=== PATIENT | female | born 1955 | race Caucasian/White ===

== ENCOUNTER 2022-02-01 20:15 | Emergency (ER) | payer MEDICARE, BC, SELFPAY ==
[2022-02-01 20:27] VITALS: BP 123/77; PULSE 95; RESP 18; TEMP 36.2; O2SAT 94
--- OUTSIDE RECORDS SUMMARY | 2022-02-01 20:27 | XMS_ITS | Encounter Summary ---
:1955 Author Organization [facility] and Its Subsidiaries and Affiliates Address [address] [address] [place] [address] Care Team Providers Name Role Phone Unavailable Primary Care Provider Unavailable Encounter Details Date Type Department Care Team Description 09/23/2017 Hospital FM CONVERSION ENCOUN Brook Atkinson MD [address] [place] [phone] [place] [address] [phone] (Wo rk) Social History Tobacco Use Types Packs/Day Years Used Date Smoking Tobacco: Never Assessed Sex Assigned at Date Recorded Not on file documented as of this encounter Plan of Treatment Upcoming Encounters Date Type Specialty Care Team Description 04/22/2022 Office Visit Family Medicine Anabelle Yost MD [address] [facility] [address] [place] [address] (Wo rk) documented as of this encounter Procedures Procedure Name Priority Date/Time Associated Comments Diagnosis HISTORICAL CYTOLOGY Routine 09/23/2017 11:19 AM R esults for this CASE CDT procedure are i n the results section. documented in this encounter Results Historical Cytology Case (09/23/2017 11:19 AM CDT) Component Value Ref Test Analysis Performed At [facility] Range Method Time Signature Historical ST. Reporting [facility] Historical === Clinical Information: === ST. Reporting Specimen: Vaginal MACK Koo Date of LMP: 05/03/2000 [facility] Hormones: _ HOSPITAL : _ LABORATORY : _ Postmenopausal: _ Hysterectomy: _ Other clinical information: _ Historical === Statement of Adequacy: === ST. Reporting Satisfactory for Evaluation. D BRITTANIE ON [facility] Final === Diagnosis: === ST. Diagnosis NEGATIVE FOR INTRAEPITHELIAL LESION OR MALIGNANCY. [facility] Historical === Salvage Inspector Note: === ST. Reporting Imaging was successful. MICHAEL ERIC ON [facility] Historical === Disclaimer === ST. Reporting The Pap smear is a cancer sc reening test that has an overall 15-25% false-negative rate. ??For this reason, an annual Pap smear is recommended. ??Please discuss this with your patients. ?? Testing performed using the ThinPrep Imaging System. [facility] ON [facility] Adult Remedial Education Instructor: Marisol Juarez LABORATORY Verified by: Marisol Juarez (Electronically signed by) 09/28/17 2:11 PM Specimen (Source) Anatomical Collection Method Collection Time Re ceived Time Location / / Volume Laterality 09/23/2017 11:19 AM CDT Brook Meade MD PATHOLOGY/CYTOLOGY ORDERABLE S Performing Organization Address City/State/ZIP Code Phon e Number [facility], [place] [address] [facility] documented in this encounter Visit Diagnoses Not on filedocumented in this encounter
--- OUTSIDE RECORDS SUMMARY | 2022-02-01 20:27 | XMS_ITS | Encounter Summary ---
:1955 Author Organization [facility] and Its Subsidiaries and Affiliates Address [address] [address] [place] [address] Care Team Providers Name Role Phone Anabelle Yost MD Primary Care Provider Reason for Visit Reason Comments Other Encounter Details Date Type Department Care Team Description 10/28/2021 Telephone [facility] Anabelle Whitehead MD Other Associates [facility] [address] [place] [address] [place] [address] [phone] Social History Tobacco Use Types Packs/Day Years Used Date Smoking Tobacco: Never Smokeless Tobacco: Never Alcohol Use Standard Drinks/Week Comments Yes 1 (1 standard drink = 0.6 oz pure alcoho l) monthly or less Alcohol Habits Answer Date Recorded How often do you have a drink containing alcohol? Never 10/13/2021 How many drinks containing alcohol do you have on a Not aske d typical day when you are drinking? How often do you have six or more drinks on one Not asked occasion? Comment: monthly or less 10/20/2021 Sex Assigned at Date Recorded Not on file documented as of this encounter Miscellaneous Notes Telephone Encounter - Sarah Gomez LPN - 10/28/2021 10:06 AM CDT Called pt. Pt verified by name and . Pt also informed that referral was sent to wreath machine operator Kimberly. Pt verbalized understanding and thanked me for calling. Pt would like Latisse to be sent to pharmacy. documented in this encounter Plan of Treatment Upcoming Encounters Date Type Specialty Care Team Description 04/22/2022 Office Visit Family Medicine Anabelle Yost MD [address] [place] [address] [address] [place] [address] (Wo rk) documented as of this encounter Visit Diagnoses Not on filedocumented in this encounter Care Teams Marine Electrician Helper Relationship Specialty Start Date End Date Anabelle Yost MD PCP - General Family Medicine 10/03/[address] [place] [address] [address] [place], [id number] documented as of this encounter
--- OUTSIDE RECORDS SUMMARY | 2022-02-01 20:27 | XMS_ITS ---
:1955 Author Organization [facility] [place] Address [address] [place], [place] [id number] Care Team Providers Name Role Phone Anabelle Yost Unavailable Unavailable PROBLEMS Type Condition ICD9-CM Code DFG00-MB Code Onset Condition SNO MED Code Dates Status Problem Other injury of S29.8XXA 18 Miguel, Active 6597 8000 chest wall 2012 Problem Non-healing T81.89XA 18 Miguel, Active 11085596 3 surgical wound 2012 Problem History of Z87.01 18 Miguel, Active 836745059 recurrent 2012 pneumonia Problem Cellulitis, L03.90 18 Miguel, Active 61497654 4 unspecified 2012 Problem Anxiety F41.9 Active 13973641 Problem Arthralgia of hip, M25.551 Active 2 39240324 right Problem Gait instability R26.81 Active 223 00160 Problem Abscess L02.91 Active 59488122 Problem Vitamin D E55.9 Active 34479570 deficiency Problem Hypocalcemia E83.51 Active 8836542 Problem Type 2 diabetes E11.9 Active 4564 85566 mellitus without complication, without long-term current use of insulin Problem BMI 50.0-59.9, Z68.43 Active adult Problem History of breast Z85.3 Active 41 2118555 cancer Problem Body mass index Z68.42 Active 4085 59629 [BMI] 45.0-49.9, adult Problem Restless leg G25.81 Active 6001134 8 Problem Other T81.40XA 18 Miguel, Active 02144672 postoperative 2012 infection Problem Reactive F32.9 Active 15020569 depression Problem Insomnia, G47.00 Active 856954841 unspecified type Problem Essential I10 Active 39255616 hypertension Problem Body mass index Z68.43 Active 4085 65664 [BMI] 50.0-59.9, adult ALLERGIES Substance Reaction Event Type Date Status Vancomycin UNKNOWN 12/03/2011 Drug Allergy Apr, Active Nitrofurantoin RASH 07/22/2009 Drug Allergy Apr, Active Tape UNKNOWN 04/17/2011 Non Drug Allergy Apr, Activ e Compazine ANAPHYLAXIS 07/22/2009 Drug Allergy Apr, Activ e Macrobid 04/17/2011 Drug Allergy Apr, Active ENCOUNTERS Encounter Location Date Diagnosis [facility] [place] [facility] Apr, Body mass index [BMI] 100 [place] 45.0-49.9, adult Z68.42 ; 304194114 Type 2 diabetes mellitus without complica tion, without long-ter m current use of insulin E 11.9 and Restless leg G25 .81 [facility] [place] [facility] Mar, Restless leg G25.81 [address] [place] [id number] [facility] [place] [facility] Jan, Type 2 di abetes mellitus [address] [place] without complica tion, 214678304 without long-ter m current use of insulin E 11.9 [facility] [place] [facility] Oct, [address] [place] [id number] [facility] Oct, [address] [place], [place] [id number] [facility] [place] [address] [place] [address] [facility] Oct, Type 2 di abetes mellitus [address] [place] without complica tion, 9125[address]648 without long-ter m current use of insulin E 11.9 ; Body mass index [BMI] 50.0-59.9, adult Z68.43 ; Skin tags, multi ple acquired L91.8 a nd Wart B07.9 [facility] [place] [facility] August, Frequency of urination [address] [place] R35.0 ; BMI 50.0 -59.9, 835294498 adult Z68.43 ; D ysuria R30.0 and Dyspne a R06.00 [facility] [place] [address] [place] Aug, [address] [place] [id number] [facility] [place] [address] [place] Aug, Type 2 di abetes mellitus [address] [place] without complica tion, 146227294 without long-ter m current use of insulin E 11.9 ; Essential hypert ension I10 ; High risk medication use Z 79.899 ; Restless leg G25 .81 ; Body mass index [BMI] 50.0-59.9, adult Z68.43 ; Snoring R06.83 a nd Fatigue R53.83 [facility] [place] [address] [facility] Jun, Hospital discharge [address] [place] follow-up Z09 ; BMI 645305229 50.0-59.9, adult Z68.43 ; Dyspnea R06.00 a nd Type 2 diabetes mellitu s E11.9 [facility] [place] [address] [facility] Mar, [address] [place] [id number] [facility] [place] [address] [facility] Mar, [address] [place], [place] [id number] [facility] [place] [address] [place] Jan, [address] [place] [id number] [facility] [place] [address] [facility] Jan, Anxiety F 41.9 ; Type 2 [address] [place] diabetes mellitu s without 974113010 complication, wi thout long-term curren t use of insulin E11.9 ; Vitamin D deficiency E55.9 ; Gait instability R26. 81 ; Essential hypert ension I10 and Osteopor otic hip fracture, right, with delayed healing, subsequent encou nter M80.051G [facility] [place] [address] [place] Jan, [address] [place], [place] [id number] [facility] [place] [address] [place] Jan, Restless leg G25.81 [address] [place], [place] [id number] [facility] [place] [address] [place] August, [address] [place], [place] [id number] [facility] [place] [address] [place] August, [address] [place] [id number] [facility] [place] [address] [facility] Aug, Type 2 di abetes mellitus [address] [place] without complica tion, 315500681 without long-ter m current use of insulin E 11.9 ; Vitamin D defici ency E55.9 ; Reactive depression F32.9 ; Insomnia, unspec ified type G47.00 and Anxiety F41.9 [facility] [place] [address] [place] Aug, Type 2 di abetes mellitus [address] [place] without complica tion, [address] without long-ter m current use of insulin E 11.9 [facility] [place] [address] [place] Apr, [address] [place], [place] [id number] [facility] [place] [address] [place] Jan, 100 [place], [place] [id number] [facility] [place] [address] [place] Jan, Type 2 di abetes mellitus [address] [place] without complica [place]ion, [address] without long-ter m current use of insulin E 11.9 ; Vitamin D defici ency E55.9 ; Hypocalc emia E83.51 ; Dysuria R30.0 ; Candidal intertr igo B37.2 and Acute cystit is without hematuri a N30.00 [facility] [place] [address] [place] Jan, [address] [place], [place] [id number] [facility] [place] [address] [place] Oct, Restless leg G25.81 ; [address] [place] Hypocalcemia E83 .51 ; [id number] Reactive depress ion F32.9 ; Diarrhea, unsp ecified type R19.7 ; Ins omnia, unspecified type G47.00 and Other long t erm (current) drug t herapy Z79.899 [facility] [place] [address] [facility] Aug, [address] [place], [place] [id number] [facility] [place] [address] [place] Aug, [address] [place], [place] [id number] [facility] [place] [address] [place] Aug, Fever, un specified fever [address] [place] cause R50.9 ; Di zziness [id number] R42 ; Orthostati c hypotension I95. 1 ; Hypocalcemia E83 .51 ; Elevated glucose R73.09 ; Type 2 diabetes mellitus without complica tion, without long-ter m current use of insulin E 11.9 and Vitamin D defici ency E55.9 [facility] [place] [address] [facility] Apr, [address] [place], [place] [id number] [facility] [place] [address] [facility] Apr, [address] [place], [place] [id number] [facility] [place] [address] [facility] Mar, Restless leg G25.81 [address] [place], [place] [id number] [facility] [place] [address] [facility] Mar, Restless leg G25.81 [address] [place], [place] [id number] [facility] [place] [address] [facility] Oct, Right hip pain 719.45 and [address] [place] Gait instability R26.81 [id number] [facility] [place] [address] [facility] Apr, Flu-like symptoms R68.89 [address] [place] ; Wheezing R06.2 and [id number] Bronchitis J40 [facility] [place] [address] [facility] Oct, [address] [place], [place] [id number] [facility] [place] [address] [facility] Oct, Abscess L 02.91 and [address] [place] Anxiety F41.9 [id number] [facility] [place] [address] [facility] Oct, Intertrig o 695.89 [address] [place], [place] [id number] [facility] [place] [address] [facility] Jun, Cough 786 .2 and [address] [place] Bronchitis 490 [id number] [facility] [place] [address] [facility] Jun, [address] [place] [id number] [address] [employer] [place], [place] [id number] [address] [employer] [place], [place] [id number] [facility] [place] [address] [facility] May, Acute bro nchitis 466.0 [address] [place] and Sinusitis 47 3.9 [id number] [facility] [place] [address] [facility] May, [address] [place], [place] [id number] [facility] [place] [address] [place] [address] Dec, Right hip p ain [address] [place] [id number] [facility] [place] [address] [place] Oct, Acute bro nchitis 466.0 [address] [place] and Grief reacti on 309.[id number] [facility] Oct, GENIE [place] [id number] [address] Jul, GENIE [place] [id number] [address] Jul, GENIE Marie [place] [id number] DO NOT USE FAMILY [address] [place] Jul, [employer] JAKE, [id number] DO NOT USE FAMILY [address] [place] Jul, [employer], [id number] [address] Jul, GENIE Marie [place] [id number] [address] Dec, GENIE Marie [place] [id number] [address] [facility] Dec, GENIE Marie [place] [id number] [address] [facility] Oct, GENIE Marie [place] [id number] [address] [facility] Jul, GENIE Marie [place] [id number] [address] [facility] May, GENIE [place] [id number] [address] May, GENIE [place] [id number] [address] [facility] Apr, [place] [id number] [address] [facility] Mar, [place] [id number] [address] [facility] Mar, [place] [id number] [address] [facility] Jan, [place] [id number] [address] [facility] Aug, [place] [id number] [address] Jun, [place] [id number] [address] May, GENIE [place] [id number] [address] Oct, [place] [id number] [address] 14 Oct, 2009 Cynthia [facility] [place] [id number] [address] Aug, GENIE Marie [place] [id number] [address] Aug, GENIE Marie [place] [id number] [address] Jul, GENIE Marie [place] [id number] [address] Apr, GENIE Marie [place] [id number] [address] Mar, GENIE Marie [place] [id number] [address] May, GENIE Marie [place] [id number] IMMUNIZATIONS Vaccine Route Administration Date Status Rocephin 1 gram 0 November 02, 2013 Administered Covid Vaccine (TwitChat) (Dose 2) Unknown Jun 06, 2020 Administered Covid Vaccine (TwitChat) (Dose 1) Unknown May 16, 2020 Administered [id number] FLUZONE PFS/QUADRIVALENT 3YR + - FLU Unknown Jan 15, 2018 Administered VIRUS VACCINE, QUADRIVALENT (IIV4), SPLIT VIRUS, PRESERVATIVE FREE Tdap (Adacel) >7y Unknown July 12, 2013 Administered Hepatitis B Unknown May 03, 2001 Administered SOCIAL HISTORY Qualifiers Date Never Smoker REASON FOR REFERRAL FUNCTIONAL STATUS PLAN OF CARE Activity Details Follow Up 3 Months, prn Reason: Pending Test In-House Urine Drug Screen Pending Test In-House CBC With Diff Pending Test In-House Flu Test Type B Pending Test In-House Flu Test Type A Pending Test In-House CBC With Diff Pending Test In-House Flu Test Type B Pending Test In-House Flu Test Type A VITAL SIGNS MEDICATIONS Medication Instructions Dosage Frequency Start End Duration Statu s Date Date [place] 10-325 MG Orally every 6 1 tablet as 6h Active hrs needed Effexor XR 150 MG Orally Once a 1 capsule 24h 90 day s Active day with food Multi Complete Active Coreg 25 MG Orally Twice a 1 tablet 12h 30 day(s) Ac tive day with food Vit Active C-Cholecalciferol- Eva Hip 500-1000-20 MG-UNIT-MG Aspirin 81 MG Orally Once a 1 tablet 24h Act joseline day Diclofenac Sodium TAKE 1 30 Active 75 MG TABLET BY MOUTH TWICE DAILY WITH FOOD OR MILK Culturelle as directed Active Probiotics - Requip 2 MG Orally BID for 1 tablet 90 days Acti ve restless legs Welchol 625 MG Orally once a 2 tablets 24h Oct, A ctive day 2018 Cyclobenzaprine Orally Three 1 tablet Ac tive HCl 10 MG times a day prn. Breo Ellipta Inhalation Once 1 puff 24h Act joseline 100-25 MCG/INH a day Micardis HCT 80-25 Orally Once a 1 tablet Active MG day for blood pressure [place] 5-325 MG Orally every 6 1 tablet as 6h Active hrs needed Klor-Con M20 20 Orally once a 1 tablet 24h A ctive MEQ day metFORMIN HCl 500 Orally Once a 1 tablet 24h Aug, days Active mg day with a meal 2018 Lasix 40 MG Orally Once a 1 tablet Activ e day prn. Ozempic (1 Subcutaneous as directed Oct, 30 days Acti ve MG/DOSE) 2 once a week 2020 MG/1.5ML Calcium + D3 Orally twice a 1 tablet 12h Act joseline 600-200 MG-UNIT day PROCEDURES Procedure Date Ordered Result Body Site LIPID PANEL Feb 27, 2020 ROUTINE VENIPUNCTURE Feb 15, 2019 Rocephin 500mg Dec 20, 2012 DESTROY BENIGNPREMLG LESION October 07, 2020 DEPO-MEDROL, 40MG Dec 20, 2012 CORTASTAT,DALALONE,[id number] Dec 20, 2012 HGB A1C August 28, 2020 EXCISION - BREAST LESION Mar 19, 2011 [facility] MED/CURRENT MED MERGE Jun 05, 2020 REMOVE SKIN TAGS ADD-ON October 07, 2020 INSERT TUNNELED CV CATH Apr 23, 2011 DRUG TEST PRSMV DIR OPT OBS October 27, 2018 ROUTINE VENIPUNCTURE August 28, 2020 TOTAL HYSTERECTOMY July 22, 2013 REMOVE TISSUE CLIENT TECHNOLOGIES ANALYST(S) May 27, 2011 REMOVAL OF SKIN TAGS October 07, 2020 CHEST X-RAY 2 VIEWS FRONTAL AND LATERAL Apr 10, 2016 REMOVAL OF GALLBLADDER July 22, 2013 CHEST X-RAY 2 VIEWS FRONTAL AND LATERAL Dec 26, 2012 URINALYSIS - AUTO - WO SCOPE August 24, 2018 LEG/ANKLE SURGERY PROCEDURE July 22, 2013 MASTECTOMY, SIMPLE, COMPLETE Mar 18, 2011 PHONE E/M BY PHYS 11-20 MIN Apr 17, 2021 ASPIRATE/INJ GANGLION CYST July 22, 2013 BREAST RECONSTRUCTION Mar 18, 2011 URINALYSIS - AUTO - WO SCOPE September 04, 2020 ROUTINE VENIPUNCTURE Feb 27, 2020 IH Flu Test Type A Jun 19, 2014 DEBRIDE SKINTISSUE July 21, 2011 LIPID PANEL August 28, 2020 DX BRONCHOSCOPE/LAVAGE July 22, 2013 PERIODIC ORAL EXAMINATION July 22, 2013 X-RAY EXAM CHEST 2 VIEWS August 24, 2018 X-RAY EXAM OF HIP 1 VIEW Dec 21, 2013 IH Flu Test Type A Apr 10, 2016 HGB A1C Feb 15, 2019 HGB A1C Feb 27, 2020 COMPLETE CBC WAUTO DIFF WBC Apr 10, 2016 ROCEPHIN, PER 250 MG November 02, 2013 IH Flu Test Type B Apr 10, 2016 IH Flu Test Type A August 24, 2018 IH Flu Test Type B August 24, 2018 COMPLETE CBC WAUTO DIFF WBC Feb 27, 2020 PHONE E/M BY PHYS 11-20 MIN August 17, 2019 URINALYSIS - AUTO - WO SCOPE Feb 15, 2019 COMPLETE CBC WAUTO DIFF WBC August 24, 2018 RESULTS Name Result Date Reference Range Outside A1C 2021-01-28 Result 6.7 In-House Urinalysis WO Scope 2020-09-04 Glucose neg Bili Small Ketones Trace Sp Grav >=1.030 1.015 - 1.025 Blood neg pH 6.0 5.0 - 6.5 Protein 100 mg/dl Uro 0.2 E.U./dl Nitrite Positive Leuk neg Clarity cloudy Color yellow Urine Culture 2020-09-04 Mammogram Pap Smear Cervial Cancer Screen Note: Clinical history: DIAGNOSIS: Specimen adequacy: Additional comment: Recommendation: Performed by: Electronically signed by: Test ordered: Maturation index: Amended report: Addendum: QC reviewed by: Cytology history: Special procedure: QA comment: Diagnosis provided by: Source: Pathologist provided ICD9: Clinician provided ICD9: Interpretation Conv. CPT Code Automation In-House Hemoglobin A1c 2020-08-28 Hemoglobin A1c 9.1 Basic Metabolic Panel (BMP) 2020-08-28 Glu Lvl 233 82-115 Chloride Lvl 97 98-107 K Lvl 4.4 3.5-5.1 Na Lvl 142 135-145 CO2 Lvl 29 22-30 Creatinine Lvl 0.9 0.7-1.5 BUN Lvl 27 10-20 Calcium Lvl 9.8 8.4-10.2 BUN/Creat 30.0 7.0-25.0 AGAP 20 10-20 eGFR AA >60 >=60 eGFR Non-AA >60 >=60 In-House Lipid Panel 2020-08-28 TC 196 111 - 199 HDL 62 40 - 60 TRG 249 40 - 160 LDL 84 70 - 100 Non-HDL 134 TC/HDL 3.2 Complete Lipid In-House CBC With Diff WBC 6.1 4.5 - 10.5 RBC 4.33 4.2 - 6.1 Hemoglobin 12.4 12.1 - 17.2 Hematocrit 37.7 36 - 50 MCV 87.1 77 - 99 MCH 28.6 27 - 31.2 MCHC 32.9 31 - 37 Platelets 214 150 - 400 Lymphs 17.0 20.0 - 45.0 % Monocytes 8.0 1.0 - 8.0 % Neutrophils 75.0 45.0 - 75.0 % Lymphs (Absolute) 1.0 1.0 - 4.0 Monocytes(Absolute) 0.5 0.05 - 0.60 Neutrophils (Absolute) 4.6 2.5 - 7.5 RDW SD 53.7 RDW CV 16.5 MPV 9.4 9 - 13 25-OH Vitamin D Total 2020-02-27 25-Hydroxy D Lvl 34.7 30.0-50.0 Hepatic Function Panel 2020-02-27 Protein Total 6.8 6.6-8.5 Albumin Lvl 3.8 3.5-5.1 Bili Total 0.4 0.2-1.3 AST (SGOT) 33 5-36 Alk Phos 103 38-126 ALT (SGPT) 47 0-72 Bili Direct 0.2 0.0-1.1 Globulin Lvl 3.0 2.4-4.2 A/G Ratio 1.3 0.8-1.8 In-House Hemoglobin A1c Hemoglobin A1c 7.4 Basic Metabolic Panel (BMP) 2020-02-27 Glu Lvl 147 82-115 Chloride Lvl 99 98-107 K Lvl 4.7 3.5-5.1 Na Lvl 140 135-145 CO2 Lvl 31 22-30 Creatinine Lvl 0.9 0.7-1.5 BUN Lvl 17 10-20 Calcium Lvl 9.3 8.4-10.2 BUN/Creat 18.9 7.0-25.0 AGAP 15 10-20 eGFR AA >60 >=60 eGFR Non-AA >60 >=60 In-House Lipid Panel TC 183 111 - 199 HDL 53 40 - 60 TRG 198 40 - 160 LDL 90 70 - 100 Non-HDL 129 TC/HDL 3.4 Complete Lipid Urine Culture 2019-02-15 RM Urinalysis, Routine IN-HOUSE 2019-02-15 Glucose Negative Bilirubin Negative Ketone Negative Specific Clay 1.020 Blood Negative pH 6.0 Protein Negative Urobilinogen 0.2 Nitrite Positive Leukocytes Negative Color Not Entered Clarity Not Entered 25-OH Vitamin D Total 2019-02-15 25-Hydroxy D Lvl 38.9 30.0-96.0 Comprehensive Metabolic Panel (CMP) 2019-02-15 Glu Lvl 132 65-110 Protein Total 7.3 6.6-8.5 Albumin Lvl 4.4 3.5-5.1 Chloride Lvl 102 98-107 K Lvl 5.2 3.5-5.1 Na Lvl 140 135-145 CO2 Lvl 24 22-30 Creatinine Lvl 0.8 0.7-1.5 BUN Lvl 26 7-20 Calcium Lvl 8.9 8.4-10.2 Bili Total 0.7 0.2-1.3 AST (SGOT) 48 14-36 Alk Phos 61 38-126 ALT (SGPT) 34 <=52 BUN/Creat 32.5 7.0-25.0 Globulin Lvl 2.9 2.4-4.2 A/G Ratio 1.5 0.8-1.8 AGAP 19 10-20 eGFR AA >60 >=60 eGFR Non-AA >60 >=60 RM HEMOGLOBIN A1c IN-HOUSE 2019-02-15 HbA1c 6.9 4-6 Hemoglobin A1c (Hgb A1c) 2019-02-15 Thyroid Stimulating Hormone (TSH) 2018-10-27 TSH 2.280 0.465-4.680 Parathyroid Hormone Intact (PTH Intact) PTH Intact 41.7 10.8-84.5 Magnesium Level (Mg) 2018-10-27 Magnesium Lvl 1.6 1.6-2.3 Comprehensive Metabolic Panel (CMP) 2018-10-27 Glu Lvl 124 65-110 Protein Total 6.8 6.6-8.5 Albumin Lvl 4.3 3.5-5.1 Chloride Lvl 101 98-107 K Lvl 4.3 3.5-5.1 Na Lvl 138 135-145 CO2 Lvl 28 22-30 Creatinine Lvl 0.8 0.7-1.5 BUN Lvl 23 7-20 Calcium Lvl 9.5 8.4-10.2 Bili Total 0.4 0.2-1.3 AST (SGOT) 26 14-36 Alk Phos 78 38-126 ALT (SGPT) 27 <=52 BUN/Creat 28.8 7.0-25.0 Globulin Lvl 2.5 2.4-4.2 A/G Ratio 1.7 0.8-1.8 AGAP 13 10-20 eGFR AA >60 >=60 eGFR Non-AA >60 >=60 RM Urinalysis, Routine IN-HOUSE 2018-08-24 Glucose Negative Bilirubin Negative Ketone Negative Specific Clay 1.010 Blood Negative pH 6.5 Protein Negative Urobilinogen 0.2 Nitrite Negative Leukocytes Trace Color Not Entered Clarity Not Entered Urine Culture 2018-08-24 Comprehensive Metabolic Panel (CMP) 2018-08-24 Glu Lvl 161 65-110 Protein Total 6.4 6.6-8.5 Albumin Lvl 3.7 3.5-5.1 Chloride Lvl 95 98-107 K Lvl 4.1 3.5-5.1 Na Lvl 134 135-145 CO2 Lvl 27 22-30 Creatinine Lvl 0.7 0.7-1.5 BUN Lvl 15 7-20 Calcium Lvl 8.2 8.4-10.2 Bili Total 0.5 0.2-1.3 AST (SGOT) 25 14-36 Alk Phos 85 38-126 ALT (SGPT) 38 <=52 BUN/Creat 21.4 7.0-25.0 Globulin Lvl 2.7 2.4-4.2 A/G Ratio 1.4 0.8-1.8 AGAP 16 10-20 eGFR AA >60 >=60 eGFR Non-AA >60 >=60 IH CHEST - 2 VIEWS [id number] 2018-08-25 25-OH Vitamin D Total 2018-08-24 25-Hydroxy D Lvl 23.9 30.0-96.0 Hemoglobin A1c (Hgb A1c) 2018-08-24 Hgb A1c 7.2 4.0-6.0 MPG Calc 179 IH CHEST - 2 VIEWS [id number] 2016-04-10 Wound Culture 2015-10-18 BLUNGER HIP 2 VIEWS 2013-12-21 HM Colonoscopy Pap Smear, 1 Slide . Note: Clinical history: DIAGNOSIS: Specimen adequacy: Additional comment: Recommendation: Performed by: Electronically signed by: Test ordered: Maturation index: Amended report: Addendum: QC reviewed by: Cytology history: Special procedure: QA comment: Diagnosis provided by: Source: Pathologist provided ICD9: Clinician provided ICD9: Interpretation Conv. CPT Code Automation HM Mammogram Glucose 2009-08-23 Result 124 >70 - <130 Glucose Office Urinalysis 2009-08-23 Sp Grav 1.025 >1.015 - <1.025 Glu neg Bili neg Ketone neg Blood neg pH 6.0 >5.0 - <6.5 Protein neg Nitrite neg Leuk neg Uro 0.2 E.U./dl Color lt yellow Clarity clear CBC 2009-08-23 WBC 6.7 k/uL 4.6 - 10.2 RBC 4.84 M/uL 4.04 - 5.40 Hgb 14.3 gm/dL 12.0 - 16.0 Hct 43.7 % 37.0 - 47.0 MCV 90.3 fL 77.0 - 99.0 MCH 29.5 pg 27.0 - 31.2 MCHC 32.7 gm/dL 31.0 - 37.0 Platelet 228 k/uL 130 - 400 MPV 11.6 fL 9.0 - 13.0 RDW 13.6 % 11.6 - 15.7 NRBC Auto RDW-SD Auto Diff 2009-08-23 Seg Auto 70 % 37 - 80 Lymph Auto 20 % 10 - 50 [place] Auto 8 % 0 - 12 Eos Auto 1 % 0 - 7 Baso Auto 0 % 0 - 3 Imm Gran Auto Lipid 2009-08-23 Trig 178 mg/dL 35 - 160 Chol 193 mg/dL 50 - 200 HDL 53 mg/dL 35 - 85 VLDL Calc 36 mg/dL LDL Direct 114 mg/dL <=100 Office Urinalysis 2009-07-22 Sp Grav 1.005 >1.015 - <1.025 Glu neg Bili neg Ketone neg Blood 2+ pH 6.5 >5.0 - <6.5 Protein trace Nitrite neg Leuk 3+ Uro 0.2 E.U./dl Color yellow Clarity cloudy REASON FOR VISIT Medicare Annual Wellness Exam, medication refills(dr yost does not do wellness exams via telephone), TV visit: [phone] , pt c/o diarrhea x 1 day, feeling weaker, *CC Rx Refill, *CC Med Refill, PFIZER BOOSTER, *CC Nurse Call Back, [place] [facility], 6 WEEK FOLLOW UP, MOLE REMOVAL/6 WEEK, POSS UTI, req for PT, FASTING 6 MONTH OFFICE VISIT, 2 WEEK HOSPITAL FOLLOW UP, DISCUSS OSTEOPOROSIS MEDS, PLS CALL,PLS CALL , APPT/RX, 6 MONTH FOLLOW UP, Med Refill, Med refill, fasting labs, CALL BACK NEEDED, call back, FASTING 6 MONTH OV , REFILL , NEW RX, FOLLOW UP LABS, APPT REQUEST, BLOOD WORK , Other, FEVER, REFILL, REFILL, RESTLESS LEG, RIGHT HIP PAIN, COUGH/CONGESTION/ACHES ALL OVER, BUMP/PAIN LFT ELBOW, c/o kendra groin area rash, itching., c/o cough a lot, yellow drainage, fever ? sick since Sat. , Urgent visit request, c/o nasal congestion, cough, yellow drainage, fever? sick since Fri. , Urgent visit request, FELL ON HIP A COUPLE OF DAYS AGO, c/o cough a lot, yellow drainage, sore throat, chest burning, fever? since last Fri. , EMR-Reginald, EMR-Reginald, EMR-Reginald, EMR-Reginald, EMR-Reginald, EMR-Reginald, EMR-Reginald, EMR-Reg[facility]d, EMR-[facility]d, EMR-[facility]d, EMR-Reg[facility]d, EMR-Reg[facility]d, EMR-Reg[facility]d, EMR-Reg[facility]d, EMR-Reg[facility]d, EMR-[facility]d, EMR-[facility]d, EMR-[facility]d, EMR-[facility]d, EMR-[facility], EMR-[facility], EMR-[facility], EMR-[facility]d, EMR-Reginald, [facility]MR[facility] Insurance Providers [facility] Member Patient Patient Patient Patient Patient Subscriber Subscriber Subscriber Group Insurance Plan Plan Plan Plan ID Relationship Address Phone Name Date of ID Name Date of No Type Insurance Insurance Insurance Coverage to Subscriber Address Phone Name Dates [place] [phone] [place] 1954 1225 [id number] [place] [address] MEDICARE [phone] MEDICARE self [place]OG[place] [id number] [place] [address] MEDICARE [phone] MEDICARE self BOG[place] [id number] [place] [address]
--- OUTSIDE RECORDS SUMMARY | 2022-02-01 20:27 | XMS_ITS | Encounter Summary ---
:1955 Author Organization [facility] and Its Subsidiaries and Affiliates Address [address] [address] [place] [address] Care Team Providers Name Role Phone Anabelle Yost MD Primary Care Provider Reason for Visit Reason Comments Hospital Follow Up Dislocation of R hip -[facility] Encounter Details Date Type Department Care Team Description 12/31/[address] [facility] Anabelle Yost, Hosp ital discharge follow-up (Primary Dx); [facility] Type 2 diabetes mellitus without complic ation, without long-term current use of insulin (HCC); [place] [address] [place] Chronic pain syndrome [address] [facility] [address] [place] [phone] Social History Tobacco Use Types Packs/Day Years Used Date Smoking Tobacco: Never Smokeless Tobacco: Never Tobacco Cessation: Counseling Given: Not Answered Alcohol Use Standard Drinks/Week Comments Yes 1 [...] on file documented as of this encounter Last Filed Vital Signs Vital Sign Reading Time Taken Comments Blood Pressure 118/75 12/31/2021 1:55 PM CDT Pulse 79 12/31/2021 1:55 PM CDT Temperature - - Respiratory Rate 18 12/31/2021 1:55 PM CDT Oxygen Saturation 96% 12/31/2021 1:55 PM CDT Inhaled Oxygen Concentration - - Weight 144.7 kg (319 lb) 12/31/2021 1:55 PM CDT Height 172.7 cm (5' 8) 12/31/2021 1:55 PM CDT Body Mass Index 48.5 12/31/2021 1:55 PM CDT documented in this encounter Progress Notes Amee Obando RT - 12/31/2021 2:15 PM CDT V Anabelle Yost MD - 12/31/2021 2:15 PM CDTSummary: Hospital follow-up Subjective Sarah Doran is a 66 y.o. presenting for Chief Complaint Patient presents with Hospital Follow Up Dislocation of R hip -[facility] HPI This 66-year-old CF presents to clinic today in follow-up of hospitalization [facility] for dislocated right hip prosthesis. She underwent surgery on 11/20/2021 and [facility] She was placed on gabapentin 400 mg 3 times daily for pain control by Dr. Ronak Wilhelm and needs a refill. She is concerned about being able to access Ozempic for type 2 diabetes due to patient wide shortages. Current Outpatient Medications Medication Sig Dispense Refill albuterol 2.5 mg /3 mL (0.083 %) nebulizer solution Take 2.5 mg by nebulization 4 (four) times daily as needed for Wheezing. 75 mL 12 ascorbic acid, vitamin C, (VITAMIN C) 1000 MG tablet Take 1,000 mg by mouth daily. aspirin 81 mg EC tablet Take 81 mg by mouth daily. calcium carbonate-vit D3-min (Calcium 600 + Minerals) 600 mg calcium- 200 unit Tablet Take by mouth2 (two) times daily. carvediloL (COREG) 25 mg tablet Take 25 mg by mouth 2 (two) times daily with meals. colesevelam (WELCHOL) 625 mg tablet Take 625 mg by mouth. Take 2 tablets by mouth once a day diclofenac (VOLTAREN) 75 mg EC tablet Take 75 mg by mouth in the morning and 75 mg before bedtime. DULoxetine (CYMBALTA) 60 mg capsule Take 60 mg by mouth daily. furosemide (LASIX) 40 mg tablet Take 40 mg by mouth daily. gabapentin (NEURONTIN) 400 mg capsule Take 1 capsule by mouth in the morning and 1 capsule at noon and 1 capsule before bedtime. 270 capsule 1 HYDROcodone-acetaminophen (NORCO) 10-325 mg per tablet Take 1 tablet by mouth every 6 (six) hours as needed for Pain. HYDROcodone-acetaminophen (NORCO) 5-325 mg per tablet Take 1 tablet by mouth every 6 (six) hours asneeded for Pain. metFORMIN (GLUCOPHAGE) 500 mg tablet Take 1 tablet by mouth daily. 90 tablet 1 mirtazapine (REMERON) 30 MG tablet Take 30 mg by mouth at bedtime. multivitamin with folic acid (THERAGRAN) 400 mcg Tablet Take 1 tablet by mouth daily. potassium chloride (KLOR-CON M20) 20 mEq tablet Take 20 mEq by mouth daily. rOPINIRole (REQUIP) 2 mg tablet Take 1 tablet by mouth 2 (two) times daily. 180 tablet 1 semaglutide (Ozempic) 1 mg/dose (2 mg/1.5 mL) Pen Injector Inject 1 mg into the skin Take once weekly. 4 mL 5 telmisartan-hydrochlorothiazide (MICARDIS HCT) 80-25 mg per tablet Take 1 tablet by mouth daily. temazepam (RESTORIL) 15 mg capsule Take 15 mg by mouth nightly as needed for Sleep. venlafaxine XR (EFFEXOR-XR) 150 mg 24 hr capsule Take 150 mg by mouth daily. No current facility-administered medications for this visit. Past Medical History: Diagnosis Date Abscess Anxiety Arthralgia of hip, right Breast cancer (HCC) Cellulitis Chronic cough Gait instability Pneumonia Past Surgical History: Procedure Laterality Date ANKLE SURGERY Right 08/2014 BREAST SURGERY CARPAL TUNNEL RELEASE cataract surgery Left 04/2016 CHOLECYSTECTOMY COSMETIC SURGERY facial dislocation of right hip Right 11/20/2021 FIRST RIB REMOVAL HYSTERECTOMY partial LIPOSUCTION Bilateral lymph edema MASTECTOMY Bilateral right total hip replacement Right dr. sanon 06/14/2019 Allergies Allergen Reactions Nitrofurantoin Rash Nitrofurantoin Monohyd/M-Cryst Rash Prochlorperazine Anaphylaxis and Shortness Of Breath Vancomycin Other (See Comments) Other reaction(s): Unknown Unsure of drug or dose, but caused total renal failure Other reaction(s): Acute renal failure Adhesive Rash Other reaction(s): Erythema tears skin- may uses paper tape for short time Can tolerate paper tape Family History Problem Relation Age of Onset Breast cancer Mother Diabetes Mother Cancer Father Hypertension Father Social History Tobacco Use Smoking Status Never Smokeless Tobacco Never Social History Substance and Sexual Activity Alcohol Use Yes Alcohol/week: 1.0 standard drink Types: 1 Standard drinks or equivalent per week Comment: monthly or less Review of Systems All other systems reviewed and are negative. Vitals: 12/31/21 1355 BP: 118/75 Pulse: 79 Resp: 18 SpO2: 96% Weight: (!) 144.7 kg (319 lb) Height: 172.7 cm (68) BP Readings from Last 3 Encounters: 12/31/21 118/75 11/09/21 (!) 150/89 10/20/21 (!) 144/69 Wt Readings from Last 3 Encounters: 12/31/21 (!) 144.7 kg (319 lb) 11/09/21 (!) 144.7 kg (319 lb) 10/20/21 (!) 141.5 kg (312 lb) Body mass index is 48.5 kg/m??. Physical Exam Vitals and nursing note reviewed. Constitutional: General: She is not in acute distress. Appearance: Normal appearance. She is obese. HENT: Head: Normocephalic and atraumatic. Skin: General: Skin is warm and dry. Neurological: General: No focal deficit present. Mental Status: She is alert and oriented to person, place, and time. Psychiatric: Mood and Affect: Mood normal. Behavior: Behavior normal. Encounter Diagnoses Name Primary? Hospital discharge follow-up Yes Type 2 diabetes mellitus without complication, without long-term current use of insulin (HCC) Chronic pain syndrome Plan Medications Placed This Encounter Medications gabapentin (NEURONTIN) 400 mg capsule Sig: Take 1 capsule by mouth in the morning and 1 capsule at noon and 1 capsule before bedtime. Dispense: 270 capsule Refill: 1 Hospital records were reviewed. Patient will continue with gabapentin 400 mg 3 times daily for pain control. Continue with Ozempic as prescribed. We discussed possibly switching to Mounjaro she will check her insurance to see if it is covered No follow-ups on file. Anabelle Yost MD documented in this encounter Plan of Treatment Upcoming Encounters Date Type Specialty Care Team Description 04/22/2022 Office Visit Family Medicine Anabelle Yost MD [address] [place] [address] [place] [address] (Wo rk) documented as of this encounter Visit Diagnoses Diagnosis Hospital discharge follow-up - Primary Other follow-up examination Type 2 diabetes mellitus without complic ation, without long-term current use of insulin (HCC) Chronic pain syndrome documented in this encounter Care Teams Cloud Software Engineer Relationship Specialty Start Date End Date Anabelle Yost MD PCP - General Family Medicine 10/03/[address] [place] [address] [place] [id number] documented as of this encounter
--- OUTSIDE RECORDS SUMMARY | 2022-02-01 20:27 | XMS_ITS ---
:1955 Author Organization [facility] [place] Address [address] [facility] [place] [address] Care Team Providers Name Role Phone SONIA Wang Unavailable Unavailable PROBLEMS Type Condition ICD9-CM Code FFR52-GQ Code Onset Condition SNO MED Code Dates Status Problem Depression F32.9 Active Problem Breast cancer C50.919 Active 689785 009 Problem Major depressive F32.9 Active 369 31797 disorder, single episode, unspecified Problem Essential I10 Active 50276307 (primary) hypertension ALLERGIES Substance Reaction Event Type Date Status Macrobid Unknown Drug Allergy Jan, Active Compazine Unknown Drug Allergy Jan, Active Vancomycin HCl Unknown Drug Allergy Jan, Active Adhesive Tape Unknown Drug Allergy Jan, Active ENCOUNTERS Encounter Location Date Diagnosis [facility] [place] [address] May, Exposure to C OVID-19 [place] [address] virus Z20 .828 [facility] [address] Jan, Exposure to COVID-[address] [place] [address] virus Z20 .828 [place] [address] Jul, [place], [place] [id number] [place] [address] [address], Jul, Acu [place] upper respiratory [place] [id number] infection, unspe cified J06.9 ; Pneumoni a J18.9 and Wheezing R06 .2 [place] [address] Jul, Sprain and strain of [place], [place] [id number] unspecifie d site of wrist 842.00 IMMUNIZATIONS Vaccine Route Administration Date Status Decadron 4 MG IM Intramuscular July 21, 2015 Administered Rocephin 1 gm IM Intramuscular July 21, 2015 Administered SOCIAL HISTORY Qualifiers Date Never Smoker REASON FOR REFERRAL FUNCTIONAL STATUS PLAN OF CARE Activity Details Future/Pending Procedure NEBULIZER Future/Pending Procedure NEBULIZER SUPPLIES Future/Pending Procedure DUONEB ALBUTEROL UP TO 2.5 M G AND IPRATROPIUM BROMIDE UP TO 0.5 MG (J7620) VITAL SIGNS Height 68.5 in 2020-02-13 Height 68.5 in 2015-07-21 Weight 300 lbs 2020-02-13 Weight 308.8 lbs 2015-07-21 BMI 44.95 kg/m2 2020-02-13 BMI 46.26 kg/m2 2015-07-21 Temperature 98.1 degrees Fahrenheit 2020-02-13 Temperature 98.5 degrees Fahrenheit 2015-07-21 Oximetry 96 % 2020-02-13 Oximetry 98 % 2015-07-21 Blood pressure systolic 100 mm Hg 2015-07-21 Blood pressure diastolic 56 mm Hg 2015-07-21 MEDICATIONS Medication Instructions Dosage Frequency Start End Duration Statu s Date Date metFORMIN HCl 500 90 Active MG Diclofenac Sodium 90 Active 75 MG Micardis HCT 80-25 Orally Once a 1 tablet 24h Active MG day [place] 5-325 MG Orally every 6 1 tablet as 6h Active hrs needed Cyclobenzaprine 15 Active HCl 10 MG Colesevelam HCl Oral Twice a 12h Act joseline 625 MG day Venlafaxine HCl ER 90 Activ e 150 MG Restoril 30 MG Orally Once a 1 capsule 24h A ctive day at bedtime as needed Bystolic 5 MG 90 Active Aspirin 81 MG Orally Once a 1 tablet 24h Act joseline day Requip 2 MG Orally Once a 1 tablet 1 24h 30 day(s) A ctive day to 3 hours before bedtime Hycodan 5-1.5 Orally every 6 5 ml as 6h Act joseline MG/5ML hrs needed Bentyl 10 MG Orally Three 2 capsules 8h 30 day(s) A ctive times a day PROCEDURES Procedure Date Ordered Result Body Site INFLUENZA INF (A) July 21, 2015 RADEX WRST COMPL MIN 3 VIEWS July 29, 2013 THERAPEUTIC PROPHYLACTICDX IN July 21, 2015 RADEX CH 2 VIEWS FRNT&LAT July 21, 2015 ALBUTEROL NON-COMPOUNDED July 21, 2015 Rocephin 1 gm July 21, 2015 WRIST COCK-UP NON-MOLDED July 29, 2013 Decadron 4 MG July 21, 2015 EVENING / WKEND / HOLIDAY SVCS July 29, 2013 INFLUENZA INF (B) July 21, 2015 BLD# COMPL AUTO HHRWP&AUTO DIF July 21, 2015 LISA 2 SARS COVID TESTING May 08, 2021 ADMIN SET WNONFIL NEBLZ DIS July 21, 2015 LISA 2 SARS COVID TESTING Feb 13, 2020 PRESSN-PRESS INHLJ TX FAAOS July 21, 2015 STERILE NEEDLE ANY EACH July 21, 2015 SYRINGE STERILE 3 CC July 21, 2015 EVENING / WKEND / HOLIDAY SVCS July 21, 2015 VENIPUNCTURE July 21, 2015 RESULTS Name Result Date Reference Range SARS-CoV-2 Antigen 2021-05-08 SARS NEGATIVE SARS-CoV-2 Antigen 2020-02-13 SARS NEGATIVE REASON FOR VISIT RAPID COVID TEST, + EXPOSURE, COUGH, CHEST CONGESTION, HURTS TO BREATHE Insurance Providers [facility] Health Member Patient Patient Patient Patient Patient Subscriber Subscriber Subscriber Group Insurance Plan Plan Plan Plan ID Relationship Address Phone Name Date of ID Name Date of No Type Insurance Insurance Insurance Coverage to Subscriber Address Phone Name Dates BLUE CROSS [phone] BLUE CROSS self [place] 1955 [id number] BLUE 1043 [address] [facility] [address] [address] MED[address]ARE self [place] [id number] PLUS [address] [facility] [id number]
--- OUTSIDE RECORDS SUMMARY | 2022-02-01 20:27 | XMS_ITS | Encounter Summary ---
:1955 Author Organization [facility] and Its Subsidiaries and Affiliates Address [address] [address] [place] [id number] Care Team Providers Name Role Phone Unavailable Primary Care Provider Unavailable Encounter Details Date Type Department Care Team Description 08/21/2019 - Hospital Encounter CORIE MARTINEZ Yao English, 08/25/2019 [facility] [place] [facility] [address] [place], [place], [phone] Social History Tobacco Use Types Packs/Day Years Used Date Smoking Tobacco: Never Assessed Sex Assigned at Date Recorded Not on file documented as of this encounter Discharge Summaries Jean Carlos Farrar NP - 08/25/2019 1:07 PM CDT Final Discharge Diagnoses 1.?Periprosthetic fracture of hip 2.?Fall on same level from tripping 3.?HTN (hypertension) 4.?Diabetes mellitus type 2 5.?Anxiety and depression 6.?Restless legs syndrome 7.?Anemia due to blood loss Discharge Medications Home Acidophilus Probiotic Blend, 1 cap, Oral, Daily,? ? Investigating : Patient has been out of this medication for two weeks aspirin 81 mg oral delayed release tablet, 81 mg, 1 tab, Oral, Daily Benadryl 25 mg oral capsule, 50 mg, 2 cap, Oral, every 6 hr, PRN Bentyl 10 mg oral capsule, 10 mg, 1 cap, Oral, TID, PRN Breo Ellipta 200 mcg-25 mcg/inh inhalation powder, 1 puffs, Inhale, Daily Bystolic 5 mg oral tablet, 5 mg, 1 tab, Oral, Daily Caltrate 600 + D oral tablet, 1 tab, Oral, BID Colesevelam Hydrochloride 625 mg oral tablet, 625 mg, 1 tab, Oral, Daily cyclobenzaprine 10 mg oral tablet, 10 mg, 1 tab, Oral, every 6 hr, PRN diclofenac sodium 75 mg oral delayed release tablet, 75 mg, 1 tab, Oral, BID Effexor XR 150 mg oral capsule, extended release, 150 mg, 1 cap, Oral, Daily Eliquis 2.5 mg oral tablet, 2.5 mg, 1 tab, Oral, BID furosemide 40 mg oral tablet, 40 mg, 1 tab, Oral, Daily, PRN Hydromet 5 mg-1.5 mg/5 mL oral syrup, 5 mL, Oral, every 6 hr, PRN,? ? Not taking Klor-Con M20 oral tablet, extended release, 20 mEq, 1 tab, Oral, Daily, PRN loperamide 2 mg oral capsule, 2 mg, 1 cap, Oral, every 4 hr, PRN metFORMIN 500 mg oral tablet, 500 mg, 1 tab, Oral, BID MiraLax oral powder for reconstitution, 17 g, Oral, Daily multivitamin adult, oral tablet, 1 tab, Oral, Daily Percocet 7.5 mg-325 mg oral tablet, 7.5 mg, 1 tab, Oral, every 4 hr, PRN Phenergan 12.5 mg oral tablet, 12.5 mg, 1 tab, Oral, every 4 hr, PRN Phenergan 12.5 mg rectal suppository, 12.5 mg, 1 supp, Rectal, every 6 hr Protonix 40 mg oral delayed release tablet, 40 mg, 1 tab, Oral, Daily Requip 1 mg oral tablet, 2 mg, 2 tab, Oral, BID Restoril 30 mg oral capsule, 30 mg, 1 cap, Oral, HS Senokot S 50 mg-8.6 mg oral tablet, 2 tab, Oral, HS Spiriva, 18 mcg, Inhale, Daily,? ? Not taking telmisartan-hydrochlorothiazide 80 mg-25 mg oral tablet, 1 tab, Oral, Daily venlafaxine 75 mg oral capsule, extended release, 75 mg, 1 cap, Oral, Daily Vitamin C, Oral, Daily Zofran 4 mg oral tablet, 4 mg, 1 tab, Oral, every 8 hr, PRN Procedures Revision femoral component with open reduction and internal fixation of fracture 08/21. ? Consults Orthopedic surgery: ?Julian Studies EXAM: XR Femur 2 V RT?IMPRESSION:?Moderately displaced and comminuted oblique subtrochanteric perihardware ?? ?fracture around the femoral stem of the right total hip arthroplasty.?Signer Name: Vamsi Lanza MD ?? ?Signed: 08/21/2019 10:23 PM [1] ? ?EXAM: XR Hip 1 V RT Includes AP Pelvis? ?? IMPRESSION:?Moderately displaced and comminuted oblique subtrochanteric perihardware ?? ?fracture around the femoral stem of the right total hip arthroplasty.?Signer Name: Vamsi Lanza MD ?? ?Signed: 08/21/2019 10:23 PM [2] ? ?EXAM: XR Hand 2 Views LT?DATE: ? 08/22/2019 8:41 AM ?FINDINGS: PA and lateral views of the left hand were obtained. No acute ?? ?fracture or dislocation is evident. Mild degenerative arthritis is ?? ?present at the base of the thumb, MCP and IP joints. Bony proliferative ?? ?changes and osteophytes are noted particularly about the third MCP joint. ?? ?No bone erosion or periarticular osteopenia. The soft tissues appear ?? ?within normal limits.?Signer Name: Pedro Rosario MD ?? ?Signed: 08/22/2019 9:05 AM [3] Physical Exam Vitals & Measurements T:? 36.3? ?C ?(Axillary)? T:? 36.8? ?C ?(Oral)? TMIN:? 36.3? ?C ?(Axillary)? TMAX:? 36.8? ?C ?(Oral)? HR:? 94?(Monitored)? RR:? 18? BP:? 106 / 73 ? SpO2:? 99%? General: Alert and oriented,?obese woman, no acute distress. Lungs: Clear to auscultation, non-labored respiration. Heart: Normal rate, regular rhythm, no murmur, gallop or edema. Abdomen: Soft, non-tender, non-distended, normal bowel sounds, no masses. Musculoskeletal: Normal range of motion and strength?to bilateral upper extremity?and left lower extremity, right lower extremity?somewhat shortened and externally rotated,?right pedal pulses palpable. Neurologic: Awake, alert, and oriented X3. Psychiatric: Cooperative, appropriate mood and affect. Hospital Course (significant findings) Patient is a 64-year-old? female who presented to the emergency department?after she had afall and developed?severe pain to the right hip?and?malrotation. Patient had a recent right hip?surgery following a fracture. ?She has a history of invasive inflammatory breast cancer as well?and is undergoing treatment at this time. On arrival here imaging is consistent with a periprosthetic fracture of the right hip. ?The ED physician have discussed with the orthopedic surgeon who wants the patient n.p.o. for likely operation this morning. I was consulted to consider patient for admission.? Patient complains of uncontrolled pain on evaluation.? She however did appear?comfortable on exam.? She has no other complaints. She denies shortness of breath, dizziness or lightheadedness. ?It appears her fall was mechanical.?She denies any loss of consciousness or syncope [4] ? Summary: ? 64-year-old woman admitted 08/20 for periprosthetic fracture of right hip.? She has a past medical history significant for anxiety and depression, diabetes mellitus, hypertension, osteoarthritis, and restless leg syndrome.? She is status post fall with severe pain and malrotation of right hip.? X-ray right femur shows moderately displaced and comminuted oblique subtrochanteric dung-hardware fracture around the femoral stem of the right total hip arthroplasty.? Orthopedic surgery is consulted on admission.? Patient is status post revision of periprosthetic femur fracture by Dr. Christensen.? She developed postoperative urinary retention requiring in and out catheterization x3.??She received?several doses of Urecholine as needed?for urinary retention.? She is currently voiding without difficulty.? She received 1 unit of packed red blood cells 08/23 for?postop blood loss anemia. ?Her H&H is improved?today. ?She has been able to?ambulate in the room with physical therapy. ?She is to remain toe- touch weightbearing to the right lower extremity?until follow-up?with Dr. Christensen in clinic. ?She has a Mepilex dressing present to incision site that can be removed in 10 days.? She will begin Eliquis 2.5 mg 1 tablet twice daily at discharge?for DVT/PE prevention.? She was given?a prescription for Percocet 7.5/325 mg?oral tablet every 4 hours as needed for pain?by orthopedic service.? She has been cleared for discharge by?Dr. Christensen.? Follow-up is arranged?in the orthopedic clinic.? She is thought to have received maximum benefit from this hospital visit and is cleared to discharge?to [facility]. Follow Up Appointments Julian SILVA, Jeimy Goodwin on 09/21/19 09:30 ? Condition on Discharge Stable for hospital discharge Discharge Disposition [facility] nursing [facility] Diet Diabetic diet Physical Activity As instructed by physical therapy, toe-touch weightbearing right lower extremity until follow-up inOrt clinic Time Spent I have spent a total of 35 minutes in preparation of this discharge summary. ? CC:?Clint SILVA Chief Complaint pt presents via ems with c/o of hip pain and fall. Hx of hip replacement June 2019. Hx of DM, HTN, anxiety, depression Lab Results (Last 24 Hours) WBC:? 14.5 k/uL? High (08/25/19 06:12:00) RBC:? 3.08 M/uL? Low (08/25/19 06:12:00) Hgb:? 8.6 g/dL? Low (08/25/19 06:12:00) Hgb:? 8.2 g/dL? Low (08/24/19 21:39:00) Hct:? 27 %? Low (08/25/19 06:12:00) Hct:? 25.4 %? Low (08/24/19 21:39:00) MCV: 87.7 fL (08/25/19 06:12:00) MCH: 27.9 pg (08/25/19 06:12:00) MCHC: 31.9 g/dL (08/25/19 06:12:00) Platelets: 250 k/uL (08/25/19 06:12:00) RDW-SD:? 47.5 fL? High (08/25/19 06:12:00) MPV: 10.5 fL (08/25/19 06:12:00) Neutro Auto:? 90 %? High (08/25/19 06:12:00) Lymph Auto:? 5 %? Low (08/25/19 06:12:00) [place] Auto: 5 % (08/25/19 06:12:00) Eos Auto: 0 % (08/25/19 06:12:00) Baso Auto: 0 % (08/25/19 06:12:00) Imm Gran Auto: 1 % (08/25/19 06:12:00) Neutro Abs:? 13 k/uL? High (08/25/19 06:12:00) Lymph Abs: 0.7 k/uL (08/25/19 06:12:00) [place] Abs: 0.7 k/uL (08/25/19 06:12:00) Eos Abs: 0 k/uL (08/25/19 06:12:00) Baso Abs: 0 k/uL (08/25/19 06:12:00) Imm Gran Abs:? 0.1 k/uL? High (08/25/19 06:12:00) POC Bld Glu Lvl:? 234 mg/dL? High (08/25/19 11:17:00) POC Bld Glu Lvl:? 262 mg/dL? High (08/25/19 06:58:00) Glu Lvl:? 252 mg/dL? High (08/25/19 06:12:00) BUN Lvl: 18 mg/dL (08/25/19 06:12:00) Creatinine Lvl: 0.7 mg/dL (08/25/19 06:12:00) BUN/Creat:? 25.7 ratio? High (08/25/19 06:12:00) eGFR AA: >60 (08/25/19 06:12:00) eGFR Non-AA: >60 (08/25/19 06:12:00) Na Lvl: 135 mmol/L (08/25/19 06:12:00) K Lvl: 4 mmol/L (08/25/19 06:12:00) Chloride Lvl:? 95 mmol/L? Low (08/25/19 06:12:00) CO2 Lvl: 29 mmol/L (08/25/19 06:12:00) AGAP: 15 mmol/L (08/25/19 06:12:00) Calcium Lvl:? 7.4 mg/dL? Low (08/25/19 06:12:00) Troponin-I:? 0.021 ng/mL? High (08/25/19 06:12:00) Transfusion Unit Number: END [id number] (08/24/19 18:13:04) Transfusion Unit Number: START [id number] (08/24/19 14:57:55) Donor Blood Type: A Pos (08/24/19 14:57:55) Blood Product: RBC CPD AS1 500 LR (08/24/19 18:13:04) Blood Product: RBC CPD AS1 500 LR (08/24/19 14:57:55) Donation Type: Volunteer homologous (allogeneic) donor (08/24/19 18:13:04) Donation Type: Volunteer homologous (allogeneic) donor (08/24/19 14:57:55) Division: 00 (08/24/19 14:57:55) Blood Product Expiration: 09/01/2019 23:59 (08/24/19 14:57:55) Pre-Transfusion Checks: Order & special needs reviewed,Informed consent verified,Transfusion education provided: Provided, Pre-transfusion medications given: None ordered, Filter Tubing Used or Christian-Prefiltered,IV Site:: Hand, Right, (08/24/19 14:57:55) User ID: Bryant Palafox (08/24/19 18:13:04) User ID: Bryant Palafox (08/24/19 14:57:55) Transfusion Started: 08/24/2019 14:57 (08/24/19 14:57:55) Transfusion Ended: 08/24/2019 18:13 (08/24/19 18:13:04) Red Blood Cells Volume Transfused: 350 mL (08/24/19 18:13:04) TRANSFUSED: TRANSFUSED (08/24/19 18:13:04) [1]? XR Femur 2 V RT; [place] Ux ResearcherAnnabel Sabillon 08/21/2019 22:02 CDT [2]? XR Hip 1 V RT Includes AP Pelvis; [place] Ux Researcher, Annabel 08/21/2019 22:02 CDT [3]? XR Hand 2 Views LT; Floyd Espitia 08/22/2019 08:43 CDT [4]? Admission H&P; Sulaiman SILVA, Michele Chatman 08/21/2019 23:22 CDT Signature Line Electronically Signed on 08/25/19 02:20 PM Jean Carlos Isaac Electronically Signed on 08/25/19 02:28 PM Yao English MD Addendum: I am seeing this patient in collaboration with BJORN Roche. ? I examined this patient, discussed the treatment plan and reviewed the note and orders. ? I agree with the above plan. Patient is been cleared to discharge to SNF by orthopedics.? She is having some continuing nausea that may be secondary to her pain medication.? She will discharge with oral Phenergan and Zofran?to the long-term.? Her PPI will continue. ? Signature Line Electronically Signed on 08/25/19 02:29 PM Yao English MD documented in this encounter H&P Notes Rubio Hilario MD - 08/21/2019 11:22 PM CDT Primary Care Physician Dr. Anabelle Yost MD Chief Complaint pt presents via ems with c/o of hip pain and fall. Hx of hip replacement June 2019. Hx of DM, HTN, anxiety, depression History of Present Illness Patient is a 64-year-old? female who presented to the emergency department?after she had afall and developed?severe pain to the right hip?and?malrotation. Patient had a recent right hip?surgery following a fracture. ?She has a history of invasive inflammatory breast cancer as well?and is undergoing treatment at this time. On arrival here imaging is consistent with a periprosthetic fracture of the right hip. ?The ED physician have discussed with the orthopedic surgeon who wants the patient n.p.o. for likely operation this morning. I was consulted to consider patient for admission. ? Patient complains of uncontrolled pain on evaluation.? She however did appear?comfortable on exam.? She has no other complaints. She denies shortness of breath , dizziness or lightheadedness. ?It appears her fall was mechanical.? She denies any loss of consciousness or syncope Review of Systems 12 point review of systems negative except as noted in the HPI Physical Exam Vitals & Measurements T:? 36.8? ?C ?(Oral)? HR:? 83?(Peripheral)? HR:? 87?(Monitored)? RR:? 22? BP:? 121 / 75 ? SpO2:? 95%? WT:? 150?kg?(Dosing)? General: [Alert and oriented, well nourished, no acute distress]. Eye: [PERRL, EOMI, normal conjunctiva]. HENT: [Normocephalic, clear tympanic membranes, normal hearing, moist oral mucosa, no scleral icterus, no sinus tenderness]. Neck: [Supple, non-tender, no carotid bruits, no JVD, no lymphadenopathy]. Lungs: [Clear to auscultation and percussion, non-labored respiration]. Heart: [Normal rate, regular rhythm, no murmur, gallop or edema]. Abdomen: [Soft, non-tender, non-distended, normal bowel sounds, no masses]. Musculoskeletal: [Normal range of motion and strength, no tenderness or swelling?except for mild rotation at the right hip with pain?and mild swelling of the right thigh.]. Skin: [Skin is warm, dry and pink, no rashes or lesions]. Neurologic: [Awake, alert, and oriented X3, CN II-XII intact]. Psychiatric: [Cooperative, appropriate mood and affect]. Assessment/Plan Right hip periprosthetic fracture Mechanical fall History is documented in the history of present illness ? Impression as above Fluid hydration N.p.o. Consult Ortho Pain control Trend labs Replete electrolytes Admit to inpatient Problem List/Past Medical History Anxiety and depression Diabetes Diarrhea HTN (hypertension) Osteoarthritis Preoperative state Restless legs syndrome Historical No historical problems Procedure/Surgical History Arthroplasty Replacement Total Hip (Right) (06/14/2019), ARTHRP ACETBLR/PROX FEM PROSTC AGRFT/ALGRFT (06/14/2019), Blepharoplasty of both eyelids, Brachioplasty, Brow lift, CE - Cataract extraction, Cholecystectomy, Colonoscopy, Excision, Facelift surgery, Hysterectomy, Incision AND drainage, Liposuction, Mastectomy with excision of regional lymph nodes, ORIF - Open reduction and internal fixation of fracture, Simple mastectomy of left breast. Medications Inpatient No active inpatient medications Home Acidophilus Probiotic Blend, 1 cap, Oral, Daily aspirin 81 mg oral delayed release tablet, 81 mg, 1 tab, Oral, Daily Benadryl 25 mg oral capsule, 50 mg, 2 cap, Oral, every 6 hr, PRN Bentyl 10 mg oral capsule, 10 mg, 1 cap, Oral, TID, PRN Breo Ellipta 200 mcg-25 mcg/inh inhalation powder, 1 puffs, Inhale, Daily Bystolic 5 mg oral tablet, 5 mg, 1 tab, Oral, Daily Caltrate 600 + D oral tablet, 1 tab, Oral, BID Colesevelam Hydrochloride 625 mg oral tablet, 625 mg, 1 tab, Oral, Daily cyclobenzaprine 10 mg oral tablet, 10 mg, 1 tab, Oral, every 6 hr, PRN diclofenac sodium 75 mg oral delayed release tablet, 75 mg, 1 tab, Oral, BID Effexor XR 150 mg oral capsule, extended release, 150 mg, 1 cap, Oral, Daily Eliquis 2.5 mg oral tablet, 2.5 mg, 1 tab, Oral, BID furosemide 40 mg oral tablet, 40 mg, 1 tab, Oral, Daily, PRN Hydromet 5 mg-1.5 mg/5 mL oral syrup, 5 mL, Oral, every 6 hr, PRN Klor-Con M20 oral tablet, extended release, 20 mEq, 1 tab, Oral, Daily, PRN loperamide 2 mg oral capsule, 2 mg, 1 cap, Oral, every 4 hr, PRN metFORMIN 500 mg oral tablet, 500 mg, 1 tab, Oral, BID multivitamin adult, oral tablet, 1 tab, Oral, Daily Restoril 30 mg oral capsule, 30 mg, 1 cap, Oral, HS Spiriva, 18 mcg, Inhale, Daily telmisartan-hydrochlorothiazide 80 mg-25 mg oral tablet, 1 tab, Oral, Daily venlafaxine 75 mg oral capsule, extended release, 75 mg, 1 cap, Oral, Daily Vitamin C, Oral, Daily Allergies Macrobid?(Rash) Adhesive Bandage?(Erythema) Compazine?(Anaphylaxis) vancomycin?(Acute renal failure) Social History Alcohol Current, Beer, Wine, 1-2 times per month Home/Environment Injuries/Abuse/Neglect in household: No. Feels unsafe at home: No. Safe place to go: Yes. Agency(s)/Others notified: No. Catholic restrictions/concerns: None. Lives with Alone. Marital Status of Patient if Patient Independent Adult: . Nutrition/Health Diet: Regular. Substance Use Never Tobacco Never (less than 100 in lifetime) Tobacco Use. Family History Denies family history of breast cancer Lab Results (Last 24 Hours) WBC:? 10.3 k/uL? High (08/21/19 21:25:00) RBC: 4.55 M/uL (08/21/19:25:00) Hgb: 12.6 g/dL (08/21/19:25:00) Hct: 40.6 % (08/21/19:25:00) MCV: 89.2 fL (08/21/19:25:00) MCH: 27.7 pg (08/21/19:25:00) MCHC: 31 g/dL (08/21/19:25:00) Platelets: 291 k/uL (08/21/19:25:00) RDW-SD:? 47.7 fL? High (08/21/19:25:00) MPV: 10.4 fL (08/21/19:25:00) Neutro Auto:? 81 %? High (08/21/19:25:00) Lymph Auto: 13 % (08/21/19:25:00) [place] Auto: 4 % (08/21/19:25:00) Eos Auto: 1 % (08/21/19:) Baso Auto: 0 % (08/21/19:) Imm Gran Auto: 0 % (08/21/19:00) Neutro Abs:? 8.3 k/uL? High (08/21/19:) Lymph Abs: 1.4 k/uL (08/21/19:00) [place] Abs: 0.5 k/uL (08/21/19::00) Eos Abs: 0.1 k/uL (08/21/19:) Baso Abs: 0 k/uL (08/21/19:) Imm Gran Abs: 0 k/uL (08/21/19:) PT: 12.9 seconds (08/21/19:) INR: 0.94 (08/21/19:) PTT: 25 seconds (08/21/19:00) Glu Lvl:? 162 mg/dL? High (08/21/19:) BUN Lvl: 18 mg/dL (08/21/19:) Creatinine Lvl: 0.8 mg/dL (08/21/19:) BUN/Creat: 22.5 ratio (08/21/19:) eGFR AA: >60 (08/21/19:) eGFR Non-AA: >60 (08/21/19:) Na Lvl: 137 mmol/L (08/21/19:00) K Lvl: 4.1 mmol/L (08/21/19:) Chloride Lvl: 99 mmol/L (08/21/19:) CO2 Lvl: 26 mmol/L (08/21/19:00) AGAP: 16 mmol/L (08/21/19:00) Calcium Lvl: 8.9 mg/dL (08/21/19:25:00) Protein Total: 6.8 g/dL (08/21/19:25:00) Albumin Lvl: 3.6 g/dL (08/21/19:25:00) Globulin Lvl: 3.2 g/dL (08/21/19:25:00) A/G Ratio: 1.1 ratio (08/21/19:25:00) Bili Total: 0.3 mg/dL (08/21/19:25:00) Bili Direct: 0.1 mg/dL (08/21/19:25:00) AST (SGOT): 21 unit/L (08/21/19::00) ALT (SGPT): 25 unit/L (08/21/19::00) Alk Phos: 100 unit/L (08/21/19:25:00) Diagnostic Results XR Chest 1 View AP ? 08/21/19 22:12:14 IMPRESSION: No acute cardiopulmonary abnormality. ? Signer Name: Elina Mark MD Signed: 08/21/2019 10:12 PM ? ? ? XR Chest 1 View AP PAGE 1 ? Signed By: Jas SILVA, Elina William ? XR Femur 2 V RT ? 08/21/19 22:17:22 IMPRESSION: ? Moderately displaced and comminuted oblique subtrochanteric perihardware fracture around the femoral stem of the right total hip arthroplasty. ? Signer Name: Vamsi Lanza MD Signed: 08/21/2019 10:23 PM ? ? ? XR Femur 2 V RT PAGE 1 ? Signed By: Myla SILVA, Vamsi Watts ? XR Hip 1 V RT Includes AP Pelvis ? 08/21/19 22:17:22 IMPRESSION: ? Moderately displaced and comminuted oblique subtrochanteric perihardware fracture around the femoral stem of the right total hip arthroplasty. ? Signer Name: Vamsi Lanza MD Signed: 08/21/2019 10:23 PM ? ? ? XR Hip 1 V RT Includes AP Pelvis PAGE 1 ? Signed By: Vamsi Lanza MD ? XR Hip W Mag Marker 1 V LT ? 08/21/19 22:17:22 IMPRESSION: ? Moderately displaced and comminuted oblique subtrochanteric perihardware fracture around the femoral stem of the right total hip arthroplasty. ? Signer Name: Vamsi Lanza MD Signed: 08/21/2019 10:23 PM ? ? ? XR Hip W Mag Marker 1 V LT PAGE 1 ? Signed By: Vamsi Lanza MD Signature Line Electronically Signed on 08/22/19 03:46 AM Michele Hilario MD documented in this encounter Consult Notes Darryl Jerry MD - 08/22/2019 6:48 AM CDT Subjective Patient is a 64-year-old? female who presented to the emergency department?after she had afall and developed?severe pain to the right hip?and?malrotation. Patient had a recent right hip?surgery following a fracture. ?She has a history of invasive inflammatory breast cancer as well?and is undergoing treatment at this time. On arrival here imaging is consistent with a periprosthetic fracture of the right hip. ?The ED physician have discussed with the orthopedic surgeon who wants the patient n.p.o. for likely operation this morning. I was consulted to consider patient for admission.? Patient complains of uncontrolled pain on evaluation.? She however did appear?comfortable on exam.? She has no other complaints. She denies shortness of breath, dizziness or lightheadedness. ?It appears her fall was mechanical.?She denies any loss of consciousness or syncope [1] ? ? She is a 64-year-old female who had a fall last night at home,?status post right hip arthroplasty by Dr. Christensen few months ago.? Doing well prior to the fall, presented to [facility] and found to have a right periprosthetic femur fracture.? She denies loss of consciousness and denies any other orthopedic complaints this morning. Review of Systems 12 point review of systems negative except as noted in the HPI [2] Physical Exam Vitals & Measurements T:? 36.7? ?C ?(Oral)? HR:? 83?(Peripheral)? HR:? 85?(Monitored)? RR:? 18? BP:? 117 / 75 ? SpO2:? 91%? WT:? 150?kg?(Dosing)? She is well-developed well-nourished no acute distress?alert and oriented person place and time. ?Complains right hip pain. ? She has normal spontaneous motion bilateral upper extremities and left lower extremity shows a normal alignment with no significant tenderness palpation and no deformity. ? Right lower extremity is somewhat shortened externally rotated.? No significant tenderness of the knee tibia foot or ankle.? Moves her toes appropriately. ? X-rays of her right hip show a periprosthetic right proximal femur fracture Intake and Output ? This visit (24 hour periods starting at 06:00 CDT)? ? 08/22/19 *? 08/21/19? 08/20/19? Total Summary?Intake mL? 1? 4? --? ??Output mL? --? --? --? ??Fluid Balance ? 1? 4? --? Intake (3)?hydromorphone mL? --? 1? --? ??morphine mL? 1? 1? --? ??ondansetron mL? --? 2? --? ??Total? 1? 4? --? Output (0)? ? ?Counts (0)? ? ? * This column has not completed the indicated time period.? Assessment/Plan 1.?Periprosthetic fracture of hip ?We will keep her n.p.o., Dr. Christensen is going to see her at some point this morning.? Need for surgery discussed with the patient and she understands, we will keep her n.p.o. 2.?Fall on same level from tripping Problem List/Past Medical History Anxiety and depression At risk of venous thromboembolus Diabetes Diarrhea HTN (hypertension) Osteoarthritis Preoperative state Restless legs syndrome Historical No historical problems Procedure/Surgical History Arthroplasty Replacement Total Hip (Right) (06/14/2019), ARTHRP ACETBLR/PROX FEM PROSTC AGRFT/ALGRFT (06/14/2019), Blepharoplasty of both eyelids, Brachioplasty, Brow lift, CE - Cataract extraction, Cholecystectomy, Colonoscopy, Excision, Facelift surgery, Hysterectomy, Incision AND drainage, Liposuction, Mastectomy with excision of regional lymph nodes, ORIF - Open reduction and internal fixation of fracture, Simple mastectomy of left breast. Allergies Macrobid?(Rash) Adhesive Bandage?(Erythema) Compazine?(Anaphylaxis) vancomycin?(Acute renal failure) Medications Inpatient 0.9% NaCl 1,000 mL, 1000 mL, IV aspirin, 81 mg, 1 tab, Oral, Daily Bentyl, 10 mg, 1 cap, Oral, TID, PRN Breo Ellipta, 1 puff, Inhale, Daily Bystolic, 5 mg, 1 tab, Oral, Daily colesevelam, 625 mg, 1 tab, Oral, Daily Dextrose 50% injection, 25 mL, IV Push, As Directed (see comments), PRN Dextrose 50% injection, 50 mL, IV Push, As Directed (see comments), PRN DuoNeb, 3 mL, HHN, RTQ6, PRN Effexor XR, 225 mg, 3 cap, Oral, Daily enoxaparin, 40 mg, 0.4 mL, Subcutaneous, every evening glucagon, 1 mg, IM, As Directed (see comments), PRN hydrALAZINE, 10 mg, 0.5 mL, IV Push, every 6 hr, PRN HydroDiuril, 25 mg, 1 tab, Oral, Daily labetalol, 10 mg, 2 mL, IV Push, every 6 hr, PRN Micardis, 80 mg, 1 tab, Oral, Daily morphine, 4 mg, 1 mL, IV Push, every 4 hr, PRN Narcan, 0.4 mg, 1 mL, IV Push, As Directed (see comments), PRN Roselle 5 mg-325 mg oral tablet, 1 tab, Oral, every 4 hr, PRN Senokot S, 2 tab, Oral, BID, PRN Spiriva, 18 mcg, 1 cap, Inhale, Daily Toradol, 15 mg, 1 mL, IV Push, every 6 hr, PRN Tylenol, 325 mg, 1 tab, Oral, every 4 hr, PRN Zofran, 4 mg, 2 mL, IV Push, every 6 hr, PRN Home Acidophilus Probiotic Blend, 1 cap, Oral, Daily,? ? Investigating : Patient has been out of this medication for two weeks aspirin 81 mg oral delayed release tablet, 81 mg, 1 tab, Oral, Daily Benadryl 25 mg oral capsule, 50 mg, 2 cap, Oral, every 6 hr, PRN Bentyl 10 mg oral capsule, 10 mg, 1 cap, Oral, TID, PRN Breo Ellipta 200 mcg-25 mcg/inh inhalation powder, 1 puffs, Inhale, Daily Bystolic 5 mg oral tablet, 5 mg, 1 tab, Oral, Daily Caltrate 600 + D oral tablet, 1 tab, Oral, BID Colesevelam Hydrochloride 625 mg oral tablet, 625 mg, 1 tab, Oral, Daily cyclobenzaprine 10 mg oral tablet, 10 mg, 1 tab, Oral, every 6 hr, PRN diclofenac sodium 75 mg oral delayed release tablet, 75 mg, 1 tab, Oral, BID Effexor XR 150 mg oral capsule, extended release, 150 mg, 1 cap, Oral, Daily Eliquis 2.5 mg oral tablet, 2.5 mg, 1 tab, Oral, BID,? ? Not taking furosemide 40 mg oral tablet, 40 mg, 1 tab, Oral, Daily, PRN Hydromet 5 mg-1.5 mg/5 mL oral syrup, 5 mL, Oral, every 6 hr, PRN,? ? Not taking Klor-Con M20 oral tablet, extended release, 20 mEq, 1 tab, Oral, Daily, PRN loperamide 2 mg oral capsule, 2 mg, 1 cap, Oral, every 4 hr, PRN metFORMIN 500 mg oral tablet, 500 mg, 1 tab, Oral, BID multivitamin adult, oral tablet, 1 tab, Oral, Daily Restoril 30 mg oral capsule, 30 mg, 1 cap, Oral, HS Spiriva, 18 mcg, Inhale, Daily,? ? Not taking telmisartan-hydrochlorothiazide 80 mg-25 mg oral tablet, 1 tab, Oral, Daily venlafaxine 75 mg oral capsule, extended release, 75 mg, 1 cap, Oral, Daily Vitamin C, Oral, Daily Social History Alcohol Current, Beer, Wine, 1-2 times per month Home/Environment Injuries/Abuse/Neglect in household: No. Feels unsafe at home: No. Safe place to go: Yes. Agency(s)/Others notified: No. Catholic restrictions/concerns: None. Lives with Alone. Marital Status of Patient if Patient Independent Adult: . Nutrition/Health Diet: Regular. Substance Use Never Tobacco Never (less than 100 in lifetime) Tobacco Use. Lab Results Labs ?(Last four charted values) WBC ? H? 10.3??? (AUG 20) Hgb ? 12.6???(AUG 20) Hct ? 40.6???(AUG 20) Plt ? 291???(AUG 20) Na ? 137???(AUG 20) K ? 4.1???(AUG 20) CO2 ? 26???(AUG 20) Cr ? 0.8???(AUG 20) BUN ? 18???(AUG 20) Glucose Random ? H? 162??? (AUG 20) PT ? 12.9???(AUG 20) INR ? 0.94???(AUG 20) PTT ? 25.0???(AUG 20) Imaging Results (Last 24 Hours) XR Chest 1 View AP ? 08/21/19 22:12:14 IMPRESSION: No acute cardiopulmonary abnormality. ? Signer Name: Elina Mark MD Signed: 08/21/2019 10:12 PM ? ? ? XR Chest 1 View AP PAGE 1 ? Signed By: Jas SILVA, Elina William ? XR Femur 2 V RT ? 08/21/19 22:17:22 IMPRESSION: ? Moderately displaced and comminuted oblique subtrochanteric perihardware fracture around the femoral stem of the right total hip arthroplasty. ? Signer Name: Vamsi Lanza MD Signed: 08/21/2019 10:23 PM ? ? ? XR Femur 2 V RT PAGE 1 ? Signed By: Vamsi Lanza MD ? XR Hip 1 V RT Includes AP Pelvis ? 08/21/19 22:17:22 IMPRESSION: ? Moderately displaced and comminuted oblique subtrochanteric perihardware fracture around the femoral stem of the right total hip arthroplasty. ? Signer Name: Vamsi Lanza MD Signed: 08/21/2019 10:23 PM ? ? ? XR Hip 1 V RT Includes AP Pelvis PAGE 1 ? Signed By: Vamsi Lanza MD ? XR Hip W Mag Marker 1 V LT ? 08/21/19 22:17:22 IMPRESSION: ? Moderately displaced and comminuted oblique subtrochanteric perihardware fracture around the femoral stem of the right total hip arthroplasty. ? Signer Name: Vamsi Lanza MD Signed: 08/21/2019 10:23 PM ? ? ? XR Hip W Mag Marker 1 V LT PAGE 1 ? Signed By: Vamsi Lanza MD [1]? Admission H&P; Michele Hilario MD 08/21/2019 23:22 CDT [2]? Admission H&P; Michele Hilario MD 08/21/2019 23:22 CDT Signature Line Electronically Signed on 08/22/19 06:50 AM Rosalino Westbrook MD, Darryl Will documented in this encounter Miscellaneous Notes Op Note - Jeimy Christensen MD - 08/22/2019 5:39 PM CDT [place], [place] OPERATIVE REPORT NAME#: BOGDAN GARNETT MR#: [id number] ATTENDING#: Matthias Samayoa DICTATING#: Jeimy Christensen M.D. Room#: 3S ADMIT DATE#: 08/21/2019 DISCHARGE DATE#: : 1955 AGE: 64 SEX: F DATE OF SURGERY: 08/22/2019 SURGEON: JEIMY CHRISTENSEN M.D. PREOPERATIVE DIAGNOSIS: Periprosthetic femur fracture. POSTOPERATIVE DIAGNOSIS: Periprosthetic femur fracture. PROCEDURE PERFORMED: Revision femoral component with open reduction and internal fixation of fracture. CHIEF SAFETY OFFICER: Seb nurse practitioner. ESTIMATED BLOOD LOSS: 1 L. IMPLANTS: DePuy reclaim stem 16 x 190 with a size 80 mm proximal body, 45 mm offset neck, and a +1.5 ceramic head ball. Five cables were used. COUNTS: All counts correct upon completion of the case. OPERATION IN DETAIL: Ms. Garnett is a 64-year-old female, who had previously undergone total hip arthroplasty. She was doing relatively well. Had progressed to her cane. Reports that she slipped in her kitchen landing on a flexed right knee resulting in the aforementioned fracture. She was unable to ambulate. She was taken by ambulance to the [facility] ER, where she was evaluated and determined to have the aforementioned fracture. She was admitted to the floor, and Orthopedics was consulted. My partner consulted me as this is a patient who I have seen and performed the total hip arthroplasty. After evaluation of the patient and x-rays, we discussed risks, benefits, and alternatives. We elected to proceed with revision of the femoral component to a long-stem component given the nature of the fracture and the extent to which it extended down to the tip of the prosthesis. Upon completion after appropriate consent, she was taken from the holding area to the operative suite, where she was transferred to the operative table. Anesthesia was administered. She was transferred to the operative table, positioned in lateral decubitus position with the right hip being up. A time-out was taken to ensure the appropriate patient, appropriate lower extremity, and confirmed preoperative antibiotics had been delivered. Upon confirmation, attention was turned to the right hip. An incision using the previous incision was made and carried distally approximately 7 cm. It was carried through skin and subcutaneous tissue level of deep fascia. Deep fascia was incised. The iliotibial band retracted anteriorly. Gluteus max fascia retracted posteriorly allowing visualization of the lateral aspect of the femur. The portion of the vastus lateralis was elevated off the lateral femur. The posterior capsule was then incised. The previous sutures were cut from the total hip arthroplasty. The fracture extended below the lesser trochanter and then extended in a sagittal plane and the mid sagittal plane down the length of the femur and then out the medial aspect closer to the tip of the prosthesis. Upon completion of exposure, the provisional cables were placed around the femur. The fracture line was irrigated with bulb syringe copiously with the pulsatile lavage. The lateralis was elevated both anteriorly and posteriorly around to visualize the fracture. The hip was then dislocated. An osteotome was used anterior and posterior to the prosthesis and around the shoulder of the prosthesis as well as the neck of the prosthesis to free the osseous integration about the proximal body. Once adequate freeing was performed, the stem was removed with a back slap. Once removed, the assembly of the fracture fragments was initiated. The distal fracture fragment was 1st positioned. Once it was positioned appropriately using a Swedish clamp, it reduced into its fracture bed. A cable was provisionally passed. These steps were performed moving proximally, passing a cable, cinching it down under 50 pounds of tension and then crimped. The excess wire was cut then moving proximally to the next wire. Once the shaft of the femur had been reestablished, the proximal body of the femur about the lesser trochanter and greater trochanter, a clamp was placed to keep the lesser trochanter and the distal portion of the femur in continuity as far as rotation goes. The femur was then rotated. The femur was then sequentially reamed to a 16. A 16 reclaim stem was malleted into position for an 85 proximal body. The proximal body was over-reamed. It was trialed. Intraoperative x-ray demonstrated appropriate amish of leg length and offset. At this point, these were the chosen implants. After removal of all trials and copious irrigation with pulsatile lavage, the proximal body was placed onto the stem in the appropriate position of version. It was secured in position with the torque limiting screw and set screw. The head ball was malleted onto the trunnion and the hip reduced to the acetabulum. Posterior capsule was then repaired to the posterior aspect of the femur through bone tunnels using #5 Ethibond. The deep fascia was then approximated with #1 Vicryl and #2 barbed suture. Once complete, the fat layer was approximated with #1 Vicryl. Subcu layer approximated with 2-0 Vicryl. Skin closed with running 3-0 Monocryl. Steri-Strips applied to the wound followed by Mepilex dressing. Patient returned to the supine position, transferred from the operative table to stretcher, returned to recovery room in stable condition. All counts correct. JEIMY CHRISTENSEN M.D. JOB#: [id number] Line Electronically Signed on 09/19/19 01:07 PM Jeimy Christensen MD documented in this encounter Plan of Treatment Upcoming Encounters Date Type Specialty Care Team Description 04/22/2022 Office Visit Family Medicine Anabelle Yost MD [address] [place] [address] [address] [facility] [place] [id number] (Wo [id number]) documented as of this encounter Visit Diagnoses Not on filedocumented in this encounter
--- OUTSIDE RECORDS SUMMARY | 2022-02-01 20:27 | XMS_ITS | Encounter Summary ---
:1955 Author Organization [facility] and Its Subsidiaries and Affiliates Address [address] [address] [place] [address] Care Team Providers Name Role Phone Anabelle Yost MD Primary Care Provider Reason for Referral Psychiatric (Routine) - Pending Review Specialty Diagnoses / Procedures Referred By Contact Refer red To Contact Psychiatry Diagnoses Moderate episode of recurrent major depressive disorder (HCC) Anabelle Yost MD [facility] [address] [facility] [address] [place] [address] [place] [address] Referral ID Status Reason Start Expiration Visits Visits Date Date Requested Authorized [id number] Pending Specialty 10/20/2021 1 1 Review Services Required Reason for Visit Reason Comments Hypertension Restless Leg Syndrome With medication refills Cough With phlegm (yellow/green) x 1 week at home covid test negative Wheezing Encounter Details Date Type Department Care Team Description [facility], Type 2 diabetes mellitus without complication, without long-term current use of insulin (HCC) (Primary Dx); [facility] Restless legs; [place] [address] Pain in other joint; [address] Bronchitis; [address] Wheezing; [place], [place], [place] [address] Moderate episode of recurrent major depr essive disorder (HCC) [id number] Social History Tobacco Use Types Packs/Day Years [...] Sign Reading Time Taken Comments Blood Pressure 144/69 10/20/2021 1:26 PM CDT Pulse 83 10/20/2021 1:26 PM CDT Temperature 36.9 ??C (98.4 ??F) 10/20/2021 1:26 PM CDT Respiratory Rate - - Oxygen Saturation 96% 10/20/2021 1:26 PM CDT Inhaled Oxygen Concentration - - Weight 141.5 kg (312 lb) 10/20/2021 1:26 PM CDT Height 172.7 cm (5' 8) 10/20/2021 1:26 PM CDT Body Mass Index 47.44 10/20/2021 1:26 PM CDT documented in this encounter Patient Instructions Patient InstructionsAnabelle Yost MD - 10/20/2021 1:45 PM CDT Images from the original note were not included. DASH Diet: Care Instructions Your Care Instructions The DASH diet is an eating plan that can help lower your blood pressure. DASH stands for Dietary Approaches to Stop Hypertension. Hypertension is high blood pressure. The DASH diet focuses on eating foods that are high in calcium, potassium, and magnesium. These nutrients can lower blood pressure. The foods that are highest in these nutrients are fruits, vegetables,low-fat dairy products, nuts, seeds, and legumes. But taking calcium, potassium, and magnesium supplements instead of eating foods that are high in those nutrients does not have the same effect. The DASH diet also includes whole grains, fish, and poultry. The DASH diet is one of several lifestyle changes your doctor may recommend to lower your high bloodpressure. Your doctor may also want you to decrease the amount of sodium in your diet. Lowering sodium while following the DASH diet can lower blood pressure even further than just the DASH diet alone. Follow-up care is a mcallister part of your treatment and safety. Be sure to make and go to all appointments, and call your doctor if you are having problems. It's also a good idea to know your test results and keep a list of the medicines you take. How can you care for yourself at home? Following the DASH diet ?? Eat 4 to 5 servings of fruit each day. A serving is 1 medium-sized piece of fruit, ?? cup choppedor canned fruit, 1/4 cup dried fruit, or 4 ounces (?? cup) of fruit juice. Choose fruit more often than fruit juice. ?? Eat 4 to 5 servings of vegetables each day. A serving is 1 cup of lettuce or raw leafy vegetables, ?? cup of chopped or cooked vegetables, or 4 ounces (?? cup) of vegetable juice. Choose vegetables more often than vegetable juice. ?? Get 2 to 3 servings of low-fat and fat-free dairy each day. A serving is 8 ounces of milk, 1 cup of yogurt, or 1 ?? ounces of cheese. ?? Eat 6 to 8 servings of grains each day. A serving is 1 slice of bread, 1 ounce of dry cereal, or ?? cup of cooked rice, pasta, or cooked cereal. Try to choose whole-grain products as much as possible. ?? Limit lean meat, poultry, and fish to 2 servings each day. A serving is 3 ounces, about the size of a deck of cards. ?? Eat 4 to 5 servings of nuts, seeds, and legumes (cooked dried beans, lentils, and split peas) each week. A serving is 1/3 cup of nuts, 2 tablespoons of seeds, or ?? cup of cooked beans or peas. ?? Limit fats and oils to 2 to 3 servings each day. A serving is 1 teaspoon of vegetable oil or 2 tablespoons of salad dressing. ?? Limit sweets and added sugars to 5 servings or less a week. A serving is 1 tablespoon jelly or jam, ?? cup sorbet, or 1 cup of lemonade. ?? Eat less than 2,300 milligrams (mg) of sodium a day. If you limit your sodium to 1,500 mg a day, you can lower your blood pressure even more. ?? Be aware that all of these are the suggested number of servings for people who eat 1,800 to 2,000calories a day. Your recommended number of servings may be different if you need more or fewer calories. Tips for success ?? Start small. Do not try to make dramatic changes to your diet all at once. You might feel that you are missing out on your favorite foods and then be more likely to not follow the plan. Make small changes, and stick with them. Once those changes become habit, add a few more changes. ?? Try some of the following: ? Make it a goal to eat a fruit or vegetable at every meal and at snacks. This will make it easy to get the recommended amount of fruits and vegetables each day. ? Try yogurt topped with fruit and nuts for a snack or healthy dessert. ? Add lettuce, tomato, cucumber, and onion to sandwiches. ? Combine a ready-made pizza crust with low-fat mozzarella cheese and lots of vegetable toppings. Try using tomatoes, squash, spinach, broccoli, carrots, cauliflower, and onions. ? Have a variety of cut-up vegetables with a low-fat dip as an appetizer instead of chips and dip. ? Sprinkle sunflower seeds or chopped almonds over salads. Or try adding chopped walnuts or almonds to cooked vegetables. ? Try some vegetarian meals using beans and peas. Add garbanzo or kidney beans to salads. Make burritos and tacos with mashed raza beans or black beans. Where can you learn more? Scan the QR code or To learn more about DASH Diet: Care Instructions, login to your Alcre[employer] account at [email or web address] and search for H967 in the [employer]. Current as of: May 12, 2021?Content Version: 13.2 ?? HY[employer]IEIA. Care instructions adapted under license by your healthcare professional. If you have questions abouta medical condition or this instruction, always ask your healthcare professional. [employer] disclaims any warranty or liability for your use of this information. Learning About Meal Planning for Diabetes Why plan your meals? Meal planning can be a mcallister part of managing diabetes. Planning meals and snacks with the right balance of carbohydrate, protein, and fat can help you keep your blood sugar at the target level you set with your doctor. You don't have to eat special foods. You can eat what your family eats, including sweets once in a while. But you do have to pay attention to how often you eat and how much you eat of certain foods. You may want to work with a dietitian or a airplane flight attendant. They can give you tips and meal ideas and can answer your questions about meal planning. This health professional can also help you reach ahealthy weight if that is one of your goals. What plan is right for you? Your dietitian or airplane flight attendant may suggest that you start with the plate format or carbohydratecounting. The plate format The plate format is a simple way to help you manage how you eat. You plan meals by learning how muchspace each food should take on a plate. Using the plate format helps you manage the amount of carbohydrate you eat. It can make it easier to keep your blood sugar level within your target range. It also helps you see if you're eating healthy portion sizes. To use the plate format, you put non-starchy vegetables on half your plate. Add lean protein foods, such as fish, lean meats and poultry, or soy products, on one-quarter of the plate. Put a grain or starchy vegetable (such as brown rice or a potato) on the final quarter of the plate. You can add a small piece of fruit and some low-fat or fat-free milk or yogurt, depending on your carbohydrate goal for each meal. Here are some tips for using the plate format: ?? Make sure that you are not using an oversized plate. A 9-inch plate is best. Many restaurants uselarger plates. ?? Get used to using the plate format at home. Then you can use it when you eat out. ?? Write down your questions about using the plate format. Talk to your doctor, a dietitian, or a airplane flight attendant about your concerns. Carbohydrate counting With carbohydrate counting, you plan meals based on the amount of carbohydrate in each food. Carbohydrate raises blood sugar higher and more quickly than any other nutrient. It is found in desserts, breads and cereals, and fruit. It's also found in starchy vegetables such as potatoes and corn, grains such as rice and pasta, and milk and yogurt. You can help keep your blood sugar levels within your target range by planning how much carbohydrate to have at meals and snacks. The amount you need depends on several things. These include your weight, how active you are, which diabetes medicines you take, and what your goals are for your blood sugar levels. A registered dietitian or airplane flight attendant can help you plan how much carbohydrate to include in each meal and snack. An example of a carbohydrate counting plan is: ?? 45 to 60 grams at each meal. That's about the same as 3 to 4 carbohydrate servings. ?? 15 to 20 grams at each snack. That's about the same as 1 carbohydrate serving. The Nutrition Facts label on packaged foods tells you how much carbohydrate is in a serving of the food. First, look at the serving size on the food label. Is that the amount you eat in a serving? All of the nutrition information on a food label is based on that serving size. So if you eat more or less than that, you'll need to adjust the other numbers. Total carbohydrate is the next thing you need to look for on the label. If you count carbohydrate servings, one serving of carbohydrate is 15 grams. For foods that don't come with labels, such as fresh fruits and vegetables, you'll need a guide thatlists carbohydrate in these foods. Ask your doctor, dietitian, or airplane flight attendant about books or other nutrition guides you can use. If you take insulin, you need to know how many grams of carbohydrate are in a meal. This lets you know how much rapid-acting insulin to take before you eat. If you use an insulin pump, you get a constant rate of insulin during the day. So the pump must be programmed at meals to give you extra insulin to cover the rise in blood sugar after meals. When you know how much carbohydrate you will eat, you can take the right amount of insulin. Or, if you always use the same amount of insulin, you need to make sure that you eat the same amount of carbohydrate at meals. If you need more help to understand carbohydrate counting and food labels, ask your doctor, dietitian, or airplane flight attendant. How can you plan healthy meals? Here are some tips to get started: ?? Plan your meals a week at a time. Don't forget to include snacks too. ?? Use cookbooks or online recipes to plan several main meals. Plan some quick meals for busy nights. You also can double some recipes that freeze well. Then you can save half for other busy nights when you don't have time to cook. ?? Make sure you have the ingredients you need for your recipes. If you're running low on basic items, put these items on your shopping list too. ?? List foods that you use to make breakfasts, lunches, and snacks. List plenty of fruits and vegetables. ?? Post this list on the refrigerator. Add to it as you think of more things you need. ?? Take the list to the store to do your weekly shopping. Follow-up care is a mcallister part of your treatment and safety. Be sure to make and go to all appointments, and call your doctor if you are having problems. It's also a good idea to know your test results and keep a list of the medicines you take. Where can you learn more? Scan the Zeptor code or To learn more about Learning About Meal Planning for Diabetes, login to your [employer] account at [email or web address] and search for X936 in the [employer]. Current as of: January 08, 2021?Content Version: 13.2 ?? HYGIEIA. Care instructions adapted under license by your healthcare professional. If you have questions abouta medical condition or this instruction, always ask your healthcare professional. [employer] disclaims any warranty or liability for your use of this information. Starting a Weight Loss Plan: Care Instructions Overview If you're thinking about losing weight, it can be hard to know where to start. Your doctor can help you set up a weight loss plan that best meets your needs. You may want to take a class on nutrition or exercise, or you could join a weight loss support group. If you have questions about how to make changes to your eating or exercise habits, ask your doctor about seeing a registered dietitian or an air cargo specialist supervisor. It can be a big challenge to lose weight. But you don't have to make huge changes at once. Make small changes, and stick with them. When those changes become habit, add a few more changes. If you don't think you're ready to make changes right now, try to pick a date in the future. Make anappointment to see your doctor to discuss whether the time is right for you to start a plan. Follow-up care is a mcallister part of your treatment and safety. Be sure to make and go to all appointments, and call your doctor if you are having problems. It's also a good idea to know your test results and keep a list of the medicines you take. How can you care for yourself at home? ?? Set realistic goals. Many people expect to lose much more weight than is likely. A weight loss of5% to 10% of your body weight may be enough to improve your health. ?? Get family and friends involved to provide support. Talk to them about why you are trying to loseweight, and ask them to help. They can help by participating in exercise and having meals with you, even if they may be eating something different. ?? Find what works best for you. If you do not have time or do not like to cook, a program that offers meal replacement bars or shakes may be better for you. Or if you like to prepare meals, finding a plan that includes daily menus and recipes may be best. ?? Ask your doctor about other health professionals who can help you achieve your weight loss goals. ? A dietitian can help you make healthy changes in your diet. ? An air cargo specialist supervisor or call center trainer can help you develop a safe and effective exercise program. ? A counselor or psychiatrist can help you cope with issues such as depression, anxiety, or family problems that can make it hard to focus on weight loss. ?? Consider joining a support group for people who are trying to lose weight. Your doctor can suggest groups in your area. Where can you learn more? Scan the iHydroRun or To learn more about Starting a Weight Loss Plan: Care Instructions, login to your [employer] account at [email or web address] and search for [id number] in the [employer]. Current as of: April 28, 2021?Content Version: 13.2 ?? HYGIEIA. Care instructions adapted under license by your healthcare professional. If you have questions abouta medical condition or this instruction, always ask your healthcare professional. [employer] disclaims any warranty or liability for your use of this information. documented in this encounter Progress Notes Anabelle Yost MD - 10/20/2021 1:45 PM CDTSummary: 6 mo f/u, c/o bronchitis Subjective Sarah Doran is a 66 y.o. presenting for Chief Complaint Patient presents with ??? Hypertension ??? Restless Leg Syndrome With medication refills ??? Cough With phlegm (yellow/green) x 1 week at home covid test negative ??? Wheezing HPI This patient is a 66-year-old CF who presents to clinic today for 6-month follow-up and refills. Shecomplains of 1 week history of cough productive of yellow-green sputum. At home COVID test was negative. She complains of wheezing. She denies any fever. She is here for follow-up with refills on medications for diabetes, ZECHARIAH/depression, RLS, hypertension. On routine screening for depression she admits to depression, not controlled with current medications. PHQ-2 score of 6. She is a of 8 yr and was recently engaged but pebbles broke the engagement due to family discord with her daughter. Current Outpatient Medications Medication Sig Dispense Refill ??? ascorbic acid, vitamin C, (vitamin C) 1000 MG tablet Take 1,000 mg by mouth daily. ??? aspirin 81 mg EC tablet Take 81 mg by mouth daily. ??? calcium carbonate-vit D3-min (Calcium 600 + Minerals) 600 mg calcium- 200 unit Tablet Take by mouth 2 (two) times daily. ??? carvediloL (COREG) 25 mg tablet Take 25 mg by mouth 2 (two) times daily with meals. ??? colesevelam (WELCHOL) 625 mg tablet Take 625 mg by mouth. Take 2 tablets by mouth once a day ??? DULoxetine (Cymbalta) 60 mg capsule Take 60 mg by mouth daily. ??? furosemide (LASIX) 40 mg tablet Take 40 mg by mouth daily. ??? HYDROcodone-acetaminophen (NORCO) 10-325 mg per tablet Take 1 tablet by mouth every 6 (six) hours as needed for Pain. ??? HYDROcodone-acetaminophen (NORCO) 5-325 mg per tablet Take 1 tablet by mouth every 6 (six) hoursas needed for Pain. ??? mirtazapine (REMERON) 30 MG tablet Take 30 mg by mouth at bedtime. ??? multivitamin with folic acid (THERAGRAN) 400 mcg Tablet Take 1 tablet by mouth daily. ??? potassium chloride (KLOR-CON M20) 20 mEq tablet Take 20 mEq by mouth daily. ??? telmisartan-hydrochlorothiazide (MICARDIS HCT) 80-25 mg per tablet Take 1 tablet by mouth daily. ??? temazepam (RestoriL) 15 mg capsule Take 15 mg by mouth nightly as needed for Sleep. ??? venlafaxine XR (EFFEXOR-XR) 150 mg 24 hr capsule Take 150 mg by mouth daily. ??? albuterol 2.5 mg /3 mL (0.083 %) nebulizer solution Take 2.5 mg by nebulization 4 (four) times daily as needed for Wheezing. 75 mL 12 ??? cefdinir (OMNICEF) 300 mg capsule Take 1 capsule by mouth 2 (two) times daily for 10 days. 20 capsule 0 ??? diclofenac (VOLTAREN) 75 mg EC tablet Take 1 tablet by mouth 2 (two) times daily. 180 tablet 1 ??? metFORMIN (GLUCOPHAGE) 500 mg tablet Take 1 tablet by mouth daily. 90 tablet 1 ??? rOPINIRole (REQUIP) 2 mg tablet Take 1 tablet by mouth 2 (two) times daily. 180 tablet 1 ??? semaglutide (Ozempic) 1 mg/dose (2 mg/1.5 mL) Pen Injector Inject 1 mg into the skin Take once weekly. 4 mL 5 No current facility-administered medications for this visit. Past Medical History: Diagnosis Date ??? Abscess ??? Anxiety ??? Arthralgia of hip, right ??? Breast cancer (HCC) ??? Cellulitis ??? Chronic cough ??? Gait instability ??? Pneumonia Past Surgical History: Procedure Laterality Date ??? ANKLE SURGERY Right 08/2014 ??? BREAST SURGERY ??? CARPAL TUNNEL RELEASE ??? cataract surgery Left 04/2016 ??? CHOLECYSTECTOMY ??? COSMETIC SURGERY facial ??? FIRST RIB REMOVAL ??? HYSTERECTOMY partial ??? LIPOSUCTION Bilateral ??? lymph edema ??? MASTECTOMY Bilateral ??? right total hip replacement Right dr. sanon 06/14/2019 Allergies Allergen Reactions ??? Nitrofurantoin Rash ??? Nitrofurantoin Monohyd/M-Cryst Rash ??? Prochlorperazine Anaphylaxis and Shortness Of Breath ??? Vancomycin Other (See Comments) Other reaction(s): Unknown Unsure of drug or dose, but caused total renal failure Other reaction(s): Acute renal failure ??? Adhesive Rash Other reaction(s): Erythema tears skin- may uses paper tape for short time Can tolerate paper tape Family History Problem Relation Age of Onset ??? Breast cancer Mother ??? Diabetes Mother ??? Cancer Father ??? Hypertension Father Social History Tobacco Use Smoking Status Never Smoker Smokeless Tobacco Never Used Social History Substance and Sexual Activity Alcohol Use Yes ??? Alcohol/week: 1.0 standard drink ??? Types: 1 Standard drinks or equivalent per week Comment: monthly or less Review of Systems Constitutional: Negative. HENT: Negative. Eyes: Negative. Respiratory: See hpi Cardiovascular: Negative. Gastrointestinal: Negative. Genitourinary: Negative. Musculoskeletal: Negative. Skin: Negative. Neurological: Negative. Endo/Heme/Allergies: Negative. Psychiatric/Behavioral: See hpi Vitals: 10/20/21 1326 BP: (!) 144/69 Pulse: 83 Temp: 98.4 ??F (36.9 ??C) SpO2: 96% Weight: (!) 141.5 kg (312 lb) Height: 172.7 cm (68) Body mass index is 47.44 kg/m??. Physical Exam Vitals and nursing note reviewed. Constitutional: Comments: Morbidly obese CF in NAD HENT: Head: Normocephalic and atraumatic. Mouth/Throat: Mouth: Mucous membranes are moist. Pharynx: Oropharynx is clear. No oropharyngeal exudate or posterior oropharyngeal erythema. Eyes: Extraocular Movements: Extraocular movements intact. Conjunctiva/sclera: Conjunctivae normal. Pupils: Pupils are equal, round, and reactive to light. Cardiovascular: Rate and Rhythm: Normal rate and regular rhythm. Heart sounds: Normal heart sounds. No murmur heard. Pulmonary: Comments: No rales or rhonchi, mild scattered expiratory wheezes Neurological: General: No focal deficit present. Mental Status: She is oriented to person, place, and time. Psychiatric: Mood and Affect: Mood normal. Behavior: Behavior normal. Encounter Diagnoses Name Primary? Restless legs ??? Pain in other joint ??? Type 2 diabetes mellitus without complication, without long-term current use of insulin (HCC) Yes ??? Bronchitis ??? Wheezing ??? Moderate episode of recurrent major depressive disorder (HCC) Plan Medications Placed This Encounter Medications ??? metFORMIN (GLUCOPHAGE) 500 mg tablet Sig: Take 1 tablet by mouth daily. Dispense: 90 tablet Refill: 1 ??? rOPINIRole (REQUIP) 2 mg tablet Sig: Take 1 tablet by mouth 2 (two) times daily. Dispense: 180 tablet Refill: 1 ??? diclofenac (VOLTAREN) 75 mg EC tablet Sig: Take 1 tablet by mouth 2 (two) times daily. Dispense: 180 tablet Refill: 1 ??? semaglutide (Ozempic) 1 mg/dose (2 mg/1.5 mL) Pen Injector Sig: Inject 1 mg into the skin Take once weekly. Dispense: 4 mL Refill: 5 Please dispense a 30 day supply with 5 refills ??? cefdinir (OMNICEF) 300 mg capsule Sig: Take 1 capsule by mouth 2 (two) times daily for 10 days. Dispense: 20 capsule Refill: 0 ??? albuterol 2.5 mg /3 mL (0.083 %) nebulizer solution Sig: Take 2.5 mg by nebulization 4 (four) times daily as needed for Wheezing. Dispense: 75 mL Refill: 12 Will refer to psychiatrist for evaluation for depression No follow-ups on file. Anabelle Yost MD documented in this encounter Plan of Treatment Instructions Instruction Type Instructions Patient Formatting of this note is d ifferent from the original. Images from the original not e were not included. DASH Diet: Care Instructions Your Care Instructions The DASH diet is an eating p trevon that can help lower your blood pressure. DASH stands for Dietary Approaches to Stop Hypertension. Hypertension is high blood pressure. The DASH diet focuses on eat ing foods that are high in calcium, potassium, and magnesium. These nutrients can lower blood pressure. The foods that are highest in these nutrients are fruits, vegetables, low-fat dairy products, nuts , seeds, and legumes. But taking calcium, potassium, and magnesium supplements instead of eating foods that are high in those nutrients does not have the same effect. The BRYAN H diet also includes whole g rains, fish, and poultry. The DASH diet is one of ivanna ral lifestyle changes your doctor may recommend to lower your high blood pressure. Your doctor may also want you to decrease the amount of sodium in your diet. Lowering sodiu m while following the DASH d iet can lower blood pressure even further than just the DASH diet alone. Follow-up care is a mcallister part of your treatment and safety. Be sure to make and go to all appointments, and call your doctor if you are having problems. It's also a good idea to know your test results and keep a list of the medicines you take. How can you care for yoursel f at home? Following the DASH diet ?? Eat 4 to 5 servings of fr uit each day. A serving is 1 medium-sized piece of fruit, ?? cup chopped or canned fruit, 1/4 cup dried fruit, or 4 ounces (?? cup) of fruit juice. Choose fruit more often than fruit juice. ?? Eat 4 to 5 servings of ve getables each day. A serving is 1 cup of lettuce or raw leafy vegetables, ?? cup of chopped or cooked vegetables, or 4 ounces (?? cup) of vegetable juice. Choose vegetables more often than vegetable juice. ?? Get 2 to 3 servings of lo w-fat and fat-free dairy each day. A serving is 8 ounces of milk, 1 cup of yogurt, or 1 ?? ounces of cheese. ?? Eat 6 to 8 servings of gr ains each day. A serving is 1 slice of bread, 1 ounce of dry cereal, or ?? cup of cooked rice, pasta, or cooked cereal. Try to choose whole-grain products as much as possible. ?? Limit lean meat, poultry, and fish to 2 servings each day. A serving is 3 ounces, about the size of a deck of cards. ?? Eat 4 to 5 servings of nu ts, seeds, and legumes (cooked dried beans, lentils, and split peas) each week. A serving is 1/3 cup of nuts, 2 tablespoons of seeds, or ?? cup of cooked beans or peas. ?? Limit fats and oils to 2 to 3 servings each day. A serving is 1 teaspoon of vegetable oil or 2 tablespoons of salad dressing. ?? Limit sweets and added sky gars to 5 servings or less a week. A serving is 1 tablespoon jelly or jam, ?? cup sorbet, or 1 cup of lemonade. ?? Eat less than 2,300 gurdeep grams (mg) of sodium a day. If you limit your sodium to 1,500 mg a day, you can lower your blood pressure even more. ?? Be aware that all of thes e are the suggested number of servings for people who eat 1,800 to 2,000 calories a day. Your recommended number of servings may be different if you need more or fewer calories. Tips for success ?? Start small. Do not try t o make dramatic changes to your diet all at once. You might feel that you are missing out on your favorite foods and then be more likely to not follow the plan. Make small ch anges, and stick with them. Once those changes become habit, add a few more changes. ?? Try some of the following : ? Make it a goal to eat a fr uit or vegetable at every meal and at snacks. This will make it easy to get the recommended amount of fruits and vegetables each day. ? Try yogurt topped with fru it and nuts for a snack or healthy dessert. ? Add lettuce, tomato, cucum guillermo, and onion to sandwiches. ? Combine a ready-made pizza crust with low-fat mozzarella cheese and lots of vegetable toppings. Try using tomatoes, squash, spinach, broccoli, carrots, cauliflower, and onions. ? Have a variety of cut-up v egetables with a low-fat dip as an appetizer instead of chips and dip. ? Sprinkle sunflower seeds o r chopped almonds over salads. Or try adding chopped walnuts or almonds to cooked vegetables. ? Try some vegetarian meals using beans and peas. Add garbanzo or kidney beans to salads. Make burritos and tacos with mashed raza beans or black beans. Where can you learn more? Scan the QR code or To learn more about BRYAN H Diet: Care Instructions, login to your [employer] account at [email or web address] and search for H967 in the [employer]. Current as of: May 12 022?Content Version: 13.2 ?? [employer]. Care instructions adapted un josie license by your healthcare professional. If you have questions about a medical condition or this instruction, always ask your healthcare professional. [employer] [facility] disclaims any warranty or liability for your use of this information. Learning About Meal Planning for Diabetes Why plan your meals? Meal planning can be a mcallister p art of managing diabetes. Planning meals and snacks with the right balance of carbohydrate, protein, and fat can help you keep your blood sugar at the target level you set with your doctor. You don't have to eat specia l foods. You can eat what your family eats, including sweets once in a while. But you do have to pay attention to how often you eat and how much you eat of certain foods. You may want to work with a dietitian or a airplane flight attendant. They can give you tips and meal ideas and can answer your questions about meal planning. This health professional can also help you reach a healthy weight if that is one of your goals. What plan is right for you? Your dietitian or diabetes e ducator may suggest that you start with the plate format or carbohydrate counting. The plate format The plate format is a simple way to help you manage how you eat. You plan meals by learning how much space each food should take on a plate. Using the plate format helps you manage the amount of carbohy drate you eat. It can make i t easier to keep your blood sugar level within your target range. It also helps you see if you're eating healthy portion sizes. To use the plate format, you put non-starchy vegetables on half your plate. Add lean protein foods, such as fish, lean meats and poultry, or soy products, on one-quarter of the plate. Put a grain or sta rchy vegetable (such as brow n rice or a potato) on the final quarter of the plate. You can add a small piece of fruit and some low-fat or fat-free milk or yogurt, depending on your carbohydrate goal for each meal. Here are some tips for using the plate format: ?? Make sure that you are no t using an oversized plate. A 9-inch plate is best. Many restaurants use larger plates. ?? Get used to using the adán te format at home. Then you can use it when you eat out. ?? Write down your questions about using the plate format. Talk to your doctor, a dietitian, or a airplane flight attendant about your concerns. Carbohydrate counting With carbohydrate counting, you plan meals based on the amount of carbohydrate in each food. Carbohydrate raises blood sugar higher and more quickly than any other nutrient. It is found in desserts, jd ads and cereals, and fruit. It's also found in starchy vegetables such as potatoes and corn, grains such as rice and pasta, and milk and yogurt. You can help keep your blood sugar levels within your tar get range by planning how mu ch carbohydrate to have at meals and snacks. The amount you need depends on several things. These include your weight, how active you are, which diabetes medicines you take, and what your goals are for your blood sugar levels. A registered dietiti an or airplane flight attendant can help you plan how much carbohydrate to include in each meal and snack. An example of a carbohydrate counting plan is: ?? 45 to 60 grams at each me al. That's about the same as 3 to 4 carbohydrate servings. ?? 15 to 20 grams at each sn ack. That's about the same as 1 carbohydrate serving. The Nutrition Facts label on packaged foods tells you how much carbohydrate is in a serving of the food. First, look at the serving size on the food label. Is that the amount you eat in a serving? All o f the nutrition information on a food label is based on that serving size. So if you eat more or less than that, you'll need to adjust the other numbers. Total carbohydrate is the next thing you need to look for on the label. If y ou count carbohydrate servings, one serving of carbohydrate is 15 grams. For foods that don't come wi th labels, such as fresh fruits and vegetables, you'll need a guide that lists carbohydrate in these foods. Ask your doctor, dietitian, or airplane flight attendant about books or other nutrition guides you can use. If you take insulin, you nee d to know how many grams of carbohydrate are in a meal. This lets you know how much rapid-acting insulin to take before you eat. If you use an insulin pump, you get a constan t rate of insulin during the day. So the pump must be programmed at meals to give you extra insulin to cover the rise in blood sugar after meals. When you know how much carbo hydrate you will eat, you can take the right amount of insulin. Or, if you always use the same amount of insulin, you need to make sure that you eat the same amount of carbohydrate at meals. If you need more help to und erstand carbohydrate counting and food labels, ask your doctor, dietitian, or airplane flight attendant. How can you plan healthy lisa ls? Here are some tips to get st arted: ?? Plan your meals a week at a time. Don't forget to include snacks too. ?? Use cookbooks or online r ecipes to plan several main meals. Plan some quick meals for busy nights. You also can double some recipes that freeze well. Then you can save half for other busy nights when you don't have time to cook. ?? Make sure you have the in gredients you need for your recipes. If you're running low on basic items, put these items on your shopping list too. ?? List foods that you use t o make breakfasts, lunches, and snacks. List plenty of fruits and vegetables. ?? Post this list on the ref rigerator. Add to it as you think of more things you need. ?? Take the list to the [facility]VM to do your weekly shopping. Follow-up care is a mcallister part of your treatment and safety. Be sure to make and go to all appointments, and call your doctor if you are having problems. It's also a good idea to know your test results and keep a list of the medicines you take. Where can you learn more? Scan the QR code or To learn more about Yamile rning About Meal Planning for Diabetes, login to your [employer] account at [email or web address] and search for [id number] in the [employer]. Current as of: January 08, 2021?Content Version: 13.2 ?? [id number] [employer] or[employer]ated. Care instructions adapted un josie license by your healthcare professional. If you have questions about a medical condition or this instruction, always ask your healthcare professional. [employer] [facility] disclaims any warranty or liability for your use of this information. Starting a Weight Loss Plan: Care Instructions Overview If you're thinking about los ing weight, it can be hard to know where to start. Your doctor can help you set up a weight loss plan that best meets your needs. You may want to take a class on nutrition or exercise, or you could join a weight loss support group. If you have questions about how to make changes to your eating or exercise habits, ask your doctor about seeing a registered dietitian or an air cargo specialist supervisor. It can be a big challenge to lose weight. But you don't have to make huge changes at once. Make small changes, and stick with them. When those changes become habit, add a few more changes. If you don't think you're re jose miguel to make changes right now, try to pick a date in the future. Make an appointment to see your doctor to discuss whether the time is right for you to start a plan. Follow-up care is a mcallister part of your treatment and safety. Be sure to make and go to all appointments, and call your doctor if you are having problems. It's also a good idea to know your test results and keep a list of the medicines you take. How can you care for yoursel f at home? ?? Set realistic goals. Many people expect to lose much more weight than is likely. A weight loss of 5% to 10% of your body weight may be enough to improve your health. ?? Get family and friends in [facility]ved to provide support. Talk to them about why you are trying to lose weight, and ask them to help. They can help by participating in exercise and having meals with you, even if they may be eating something different. ?? Find what works best for you. If you do not have time or do not like to cook, a program that offers meal replacement bars or shakes may be better for you. Or if you like to prepare meals, finding a p trevon that includes daily menu s and recipes may be best. ?? Ask your doctor about ot er health professionals who can help you achieve your weight loss goals. ? A dietitian can help you m rayshawn healthy changes in your diet. ? An air cargo specialist supervisor or call center trainer can help you develop a safe and effective exercise program. ? A counselor or psychiatris t can help you cope with issues such as depression, anxiety, or family problems that can make it hard to focus on weight loss. ?? Consider joining a suppor t group for people who are trying to lose weight. Your doctor can suggest groups in your area. Where can you learn more? Scan the QR code or To learn more about Sta rting a Weight Loss Plan: Care Instructions, login to your [employer] account at [email or web address] and search for [id number] in the [employer]. Current as of: April 28, 2021?Content Version: 13.2 ?? [employer]. Care instructions adapted un josie license by your healthcare professional. If you have questions about a medical condition or this instruction, always ask your healthcare professional. [employer] [facility] disclaims any warranty or liability for your use of this information. Upcoming Encounters Date Type Specialty Care Team Description 04/22/2022 Office Visit Family Medicine Anabelle Yost MD [facility] [address] [place] [address], [place] [address] (Wo rk) Scheduled Referrals Name Type Priority Associated Order Schedule Diagnoses Ambulatory referral Outpatient Referral Routine Moderate episo de of Ordered: to Psychiatry recurrent major 10/20/2021 depressive disorder (HCC) documented as of this encounter Visit Diagnoses Diagnosis Type 2 diabetes mellitus without complic ation, without long-term current use of insulin (HCC) - Primary Restless legs Restless legs syndrome (RLS) Pain in other joint Bronchitis Bronchitis, not specified as acute or ch ronic Wheezing 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
--- OUTSIDE RECORDS SUMMARY | 2022-02-01 20:27 | XMS_ITS | Encounter Summary ---
:1955 Author Organization [facility] and Its Subsidiaries and Affiliates Address [address] [address] [place] [address] Care Team Providers Name Role Phone Anabelle Yost MD Primary Care Provider Encounter Details Date Type Department Care Team Description 10/13/2021 History [facility] [address] [place] [address] [place] [id number] [phone] Social History Tobacco Use Types Packs/Day Years Used Date Smoking Tobacco: Never Smokeless Tobacco: Never Alcohol Use Standard Drinks/Week Comments Never 0 (1 standard drink = 0.6 oz pure alcoho l) Alcohol Habits Answer Date Recorded How often do you have a drink containing alcohol? Never 10/13/2021 How many drinks containing alcohol do you have on a typical Not asked day when you are drinking? How often do you have six or more drinks on one occasion? No t asked Comment: Not asked Sex Assigned at Date Recorded Not on file documented as of this encounter Plan of Treatment Upcoming Encounters Date Type Specialty Care Team Description 04/22/2022 Office Visit Family Medicine Anabelle Yost MD [address] [place] [address] [address] [place] [address] (Wo rk) documented as of this encounter Visit Diagnoses Not on filedocumented in this encounter Care Teams Daycare Worker Relationship Specialty Start Date End Date Anabelle Yost MD PCP - General Family Medicine 10/03/21 [address] [facility] [address] [place], [address] documented as of this encounter
--- OUTSIDE RECORDS SUMMARY | 2022-02-01 20:27 | XMS_ITS | Encounter Summary ---
:1955 Author Organization [facility] and [facility] Subsidi[facility] and [facility]ili[facility] Address [address] [address] [place] [address] Care Team Providers Name Role Phone Unavailable Primary Care Provider Unavailable Encounter Details Date Type Department Care Team Description 08/25/2018 [facility], Unmapped [address] [place] [phone] Social History Tobacco Use Types Packs/Day Years Used Date Smoking Tobacco: Never Assessed Sex Assigned at Date Recorded Not on file documented as of this encounter Plan of Treatment Upcoming Encounters Date Type Specialty Care Team Description 04/22/2022 Office Visit Family Medicine Anabelle Yost MD [address] [place] [address] Suite [facility] [place], [address] (Wo rk) documented as of this encounter Visit Diagnoses Not on filedocumented in this encounter
--- OUTSIDE RECORDS SUMMARY | 2022-02-01 20:27 | XMS_ITS | Clinical Summary ---
:1955 Author Organization [facility] and Its Subsidiaries and Affiliates Address [address] [address] [place] [address] Care Team Providers Name Role Phone Anabelle Yost MD Primary Care Provider Allergies Active Allergy Reactions Severity Noted Date Comments Adhesive Rash Low 03/13/2020 Other reaction( s): Erythema tears skin- may uses paper tape for short time Can tolerate pa per tape Nitrofurantoin Rash High 02/27/2020 Nitrofurantoin Rash High 02/13/2020 Monohyd/M-Cryst Prochlorperazine Anaphylaxis, High 02/13/2020 Shortness Of Breath Vancomycin Other (See Comments) High 02/13/2020 Other r eaction(s): Unknown Unsure of drug or dose, but cause d total renal failure Other reaction( s): Acute renal failure Medications Be aware that medications may not be up to date as of this document.Always verify current medications with patient. Medication Sig Dispensed Refills Start Date End Date Status HYDROcodone-acetami Take 1 tablet by 0 Active nophen (NORCO) mouth every 6 10-325 mg per (six) hours as tablet needed for Pain. HYDROcodone-acetami Take 1 tablet by 0 Active nophen (NORCO) mouth every 6 5-325 mg per tablet (six) hours as needed for Pain. aspirin 81 mg EC Take 81 mg by 0 Active tablet mouth daily. calcium Take by mouth 2 0 Acti ve carbonate-vit (two) times daily. D3-min (Calcium 600 + Minerals) 600 mg calcium- 200 unit Tablet multivitamin with Take 1 tablet by 0 Active folic acid mouth daily. (THERAGRAN) 400 mcg Tablet telmisartan-hydroch Take 1 tablet by 0 Active lorothiazide mouth daily. (MICARDIS HCT) 80-25 mg per tablet furosemide (LASIX) Take 40 mg by 0 Active 40 mg tablet mouth daily. potassium chloride Take 20 mEq by 0 Active (KLOR-CON M20) 20 mouth daily. mEq tablet mirtazapine Take 30 mg by 0 Acti ve (REMERON) 30 MG mouth at bedtime. tablet colesevelam Take 625 mg by 0 Act joseline (WELCHOL) 625 mg mouth. Take 2 tablet tablets by mouth once a day temazepam Take 15 mg by 0 Active (RESTORIL) 15 mg mouth nightly as capsule needed for Sleep. carvediloL (COREG) Take 25 mg by 0 Active 25 mg tablet mouth 2 (two) times daily with meals. ascorbic acid, Take 1,000 mg by 0 Active vitamin C, (VITAMIN mouth daily. C) 1000 MG tablet venlafaxine XR Take 150 mg by 0 Active (EFFEXOR-XR) 150 mg mouth daily. 24 hr capsule DULoxetine Take 60 mg by 0 Activ e (CYMBALTA) 60 mg mouth daily. capsule metFORMIN Take 1 tablet by 90 tablet 1 10/20/2021 Ac tive (GLUCOPHAGE) 500 mg mouth daily. tabletIndications: Type 2 diabetes mellitus without complication, without long-term current use of insulin ([facility]) rOPINIRole (REQUIP) Take 1 tablet by 180 tablet 1 10/20/2021 Active 2 mg mouth 2 (two) tabletIndications: times daily. Restless legs albuterol 2.5 mg /3 Take 2.5 mg by 75 mL 12 10/20/202110/02 Active mL (0.083 %) nebulization 4 nebulizer (four) times daily solutionIndications as needed for : Wheezing Wheezing. semaglutide Inject 1 mg into 4 mL 5 12/02/2021 Active (Ozempic) 1 mg/dose the skin Take once (2 mg/1.5 mL) Pen weekly. InjectorIndications : Type 2 diabetes mellitus without complication, without long-term current use of insulin ([facility]) diclofenac Take 75 mg by 0 Activ e (VOLTAREN) 75 mg EC mouth in the tablet morning and 75 mg before bedtime. gabapentin Take 1 capsule by 270 capsule 1 12/31/2021 Active (NEURONTIN) 400 mg mouth in the capsuleIndications: morning and 1 Chronic pain capsule at noon syndrome and 1 capsule before bedtime. Active Problems No known active problems Encounters Date Type Specialty Care Team Description 01/19/2022 Hospital Encounter Radiology Cassie Clemons neoplasm of D, MD ronan marie of right female breast, unspeci fied estrogen recept or status (HCC) 12/31/2021 Office Visit Family Medicine Anabelle Yost, Hospita l discharge follow-up (Primary Dx); Type 2 diabetes mellitus without complication, without long-term current use of insulin (HCC); Chronic pain sy ndrome 12/31/2021 History Family Medicine Anabelle Yost MD 12/08/2021 Transcribe Orders Radiology Cassie Clemons neoplasm emeterio Tillman, MD ronan marie of right female breast, unspeci fied estrogen recept or status (HCC) (P rimary Dx) 12/01/2021 Telephone Family Medicine Anabelle Yost, Other MD 11/28/2021 Telephone Family Medicine Anabelle Yost, Advice Only 11/09/2021 Office Visit Family Medicine Floyd Smith at (Primary Dx); MICHELE Hernandez Coughing; Clinical diagno sis of COVID-19 08/10/2021 Procedure Pass Radiology from Last 3 Months Immunizations Name Administration Dates Next Due Influenza Split (PF) Quad 0.5 mL 6-35 MO OR > or = 3 YO 08/2018 Family History Medical History Relation Comments Cancer Father Hypertension Father Breast cancer Mother Diabetes Mother Relation Status Comments Father Other Mother Other Social History Tobacco Use Types Packs/Day Years [...] Assigned at Date Recorded Not on file Last Filed Vital Signs Vital Sign Reading Time Taken Comments Blood Pressure 118/75 12/31/2021 1:55 PM CDT Pulse 79 12/31/2021 1:55 PM CDT Temperature 36.9 ??C (98.5 ??F) 11/09/2021 1:30 PM CDT Respiratory Rate 18 12/31/2021 1:55 PM CDT Oxygen Saturation 96% 12/31/2021 1:55 PM CDT Inhaled Oxygen Concentration - - Weight 144.7 kg (319 lb) 12/31/2021 1:55 PM CDT Height 172.7 cm (5' 8) 12/31/2021 1:55 PM CDT Body Mass Index 48.5 12/31/2021 1:55 PM CDT Plan of Treatment Upcoming Encounters Date Type Specialty Care Team Description 04/22/2022 Office Visit Family Medicine Anabelle Yost MD [facility] [address] [place] [address], [place] [address] (Wo rk) Health Maintenance Due Date Last Done Comments CT Colonography 1955 Cologuard 1955 DIABETIC FOOT EXAM 1955 DIABETIC RETINAL EXAM 1955 FIT 1955 FOBT 1955 Flexible Sigmoidoscopy 1955 Hepatitis C Screening 1974 INFLUENZA VACCINE 12/01/2021 01/03/2021, 01/29/2020, 01/05/2019, Additional history exists COVID-19 Vaccine (4 - Booster for 04/04/2022 01/10/2022, , Pfizer series) 06/06/2020, Additional history exists HEMOGLOBIN A1C 04/18/2022 10/17/2021 DEXA SCAN 01/20/2024 01/19/2022 Colonoscopy 06/20/2028 06/20/2018 Colorectal Cancer Screening 06/20/2028 ZOSTER VACCINE Completed 06/05/2018, 03/18/2018 Pneumococcal Vaccine: 65+ Years Completed 04/15/2020, 01/31 Pneumococcal Vaccine: Pediatrics Completed 04/15/2020, (0 to 5 Years) and At-Risk Patients (6 to 64 Years) MAMMOGRAM Discontinued Procedures Procedure Name Priority Date/Time Associated Diagnosis Comme nts XR DEXA CENTRAL Routine 01/19/2022 11:55 AM Malignant neoplasm Results for this CDT of lower-inner procedure are in quadrant of right the result s female breast, section. unspecified estrogen receptor status (HCC) POCT RAPID STREP A Routine 11/09/2021 1:46 PM Sore throat Res ults for this CDT procedure are i n the results section. from Last 3 Months Results XR Dexa Central (01/19/2022 11:55 AM CDT) Anatomical Region Laterality Modality Other Specimen (Source) Anatomical Collection Method Collection Time Re ceived Time Location / / Volume Laterality 01/19/2022 6:02 PM CDT Impressions 01/19/2022 6:05 PM CDT Normal bone mineral density evaluation o f the lumbar spine with a 27.1% interval increase in bone mineral density as compared to the prior exam dated 05/29/2016. Normal bone mineral density evaluation o f the left hip. The patient's 10 year fracture risk (FRA X score) is 6.8% for a major osteoporotic fracture and 0.4% for a hip fracture. 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 T-score = ??+2.8 ( young adult). Z-score = +4.6 (age matched). LEFT TOTAL HIP: Bone mineral density is 1.022 g/cm2. T-score = +0.7 (young adult). Z-score = +1.9 (age matched). LEFT FEMORAL NECK: Bone mineral density is 0.767 g/cm2. T-score = -0.7 (young adult). Z-score = +0.8 (age matched). Procedure Note Vega Fox MD - 01/19/2022Forma tting of this note might be different from the original. 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 T-score = +2.8 ( young adult). Z-score = +4.6 (age matched). LEFT TOTAL HIP: Bone mineral density is 1.022 g/cm2. T-score = +0.7 (young adult). Z-score = +1.9 (age matched). LEFT FEMORAL NECK: Bone mineral density is 0.767 g/cm2. T-score = -0.7 (young adult). Z-score = +0.8 (age matched). IMPRESSION: Normal bone mineral density evaluation o f the lumbar spine with a 27.1% interval increase in bone mineral density as compared to the prior exam dated 05/29/2016. Normal bone mineral density evaluation o f the left hip. The patient's 10 year fracture risk (FRA X score) is 6.8% for a major osteoporotic fracture and 0.4% for a hip fracture. Signer Name: Vega Fox MD Signed: 01/19/2022 6:05 PM Cassie Clemons MD [facility] DEXA ORDERABLES POCT rapid strep A (11/09/2021 1:46 PM CDT) [facility] gist Method Time Signature Rapid Strep A Negative Negative, Screen Valid, Invalid, Indeterminate , Trace, Not Applicable, CHARGE YES, CHARGE NO, see note, Detected, Not Detected, Equivocal Internal Valid Control Rapid Strep A Screen Specimen (Source) Anatomical Collection Method Collection Time Re ceived Time Location / / Volume Laterality Throat 11/09/2021 1:46 PM CDT Floyd BAUTISTA POINT OF CARE TEST ORDERABLE S from Last 3 Months Insurance Payer Benefit Plan / Subscriber ID Effective Dates Phone Addre ss Type Group MEDICARE MEDICARE PART [id number] 2015-[place] [id number] [place] [address] BLUE CROSS BLUE CROSS [id number] 2013-Prese [address] Blue Cross [facility] nt [place] [address] Care Teams Ginning Operator Relationship Specialty Start Date End Date Anabelle Yost MD PCP - General Family Medicine 10/03/21 [address] [facility] [address] [place], [address]
--- OUTSIDE RECORDS SUMMARY | 2022-02-01 20:27 | XMS_ITS | Encounter Summary ---
:1955 Author Organization [facility] and Its Subsidiaries and Affiliates Address [address] [address] [place] [address] Care Team Providers Name Role Phone Anabelle Yost MD Primary Care Provider Reason for Visit Reason Comments Sore Throat Nasal Congestion Encounter Details Date Type Department Care Team Description 11/09/[address] [facility] Primary Care Plus Floyd Smith Sor e throat (Primary Dx); MICHELE Munoz Coughing; [address] [place] [address] Clinical diagnosis of COVID-19 [place] [id number] [place] [phone] Social History Tobacco Use Types Packs/Day Years [...] Sign Reading Time Taken Comments Blood Pressure 150/89 11/09/2021 1:30 PM CDT Pulse 93 11/09/2021 1:30 PM CDT Temperature 36.9 ??C (98.5 ??F) 11/09/2021 1:30 PM CDT Respiratory Rate - - Oxygen Saturation 95% 11/09/2021 1:30 PM CDT Inhaled Oxygen Concentration - - Weight 144.7 kg (319 lb) 11/09/2021 1:30 PM CDT Height 172.7 cm (5' 8) 11/09/2021 1:30 PM CDT Body Mass Index 48.5 11/09/2021 1:30 PM CDT documented in this encounter Progress Notes Floyd Smith PA - 11/09/2021 12:45 PM CDT Images from the original note were not included. [facility] [place] [address] [place] [id number] Subjective Sarah Doran is a 66 y.o. White or female that presents with Chief Complaint Patient presents with ??? Sore Throat ??? Nasal Congestion Pt presents with onset of bad ST, chest congestion, and cough overnight, NO fever but she states that her son found out that he has covid this morning and she has been around him. Review of Systems Constitutional: Neg except as noted in the HPI Objective Vitals: 11/09/21 1330 BP: (!) 150/89 Pulse: 93 Temp: 98.5 ??F (36.9 ??C) SpO2: 95% Past Medical History: Diagnosis Date ??? Abscess ??? Anxiety ??? Arthralgia of hip, right ??? Breast cancer (HCC) ??? Cellulitis ??? Chronic cough ??? Gait instability ??? Pneumonia Current Outpatient Medications Medication Instructions ??? albuterol 2.5 mg, Nebulization, 4 times daily PRN ??? ascorbic acid (vitamin C) (VITAMIN C) 1,000 mg, Oral, Daily ??? aspirin 81 mg, Oral, Daily ??? azithromycin (ZITHROMAX) 250 mg tablet Take 2 tablets (500mg) once today (on Day1), followed by 1 tablet (250mg) once daily on Day 2 through 5. ??? calcium carbonate-vit D3-min (Calcium 600 + Minerals) 600 mg calcium- 200 unit Tablet Oral, 2 times daily ??? carvediloL (COREG) 25 mg, Oral, 2 times daily with meals ??? mbkgqgegxbtunudz-xstdtiknr-PJ 4-10-15 mg/5 mL Liquid 5 mLs, Oral, Every 6 hours PRN ??? colesevelam (WELCHOL) 625 mg, Oral, Take 2 tablets by mouth once a day ??? diclofenac (VOLTAREN) 75 mg, Oral, 2 times daily ??? DULoxetine (CYMBALTA) 60 mg, Oral, Daily ??? furosemide (LASIX) 40 mg, Oral, Daily ??? HYDROcodone-acetaminophen (NORCO) 10-325 mg per tablet 1 tablet, Oral, Every 6 hours PRN ??? HYDROcodone-acetaminophen (NORCO) 5-325 mg per tablet 1 tablet, Oral, Every 6 hours PRN ??? metFORMIN (GLUCOPHAGE) 500 mg, Oral, Daily ??? mirtazapine (REMERON) 30 mg, Oral, Nightly ??? molnupiravir 800 mg, Oral, Every 12 hours ??? multivitamin with folic acid (THERAGRAN) 400 mcg Tablet 1 tablet, Oral, Daily ??? Ozempic 1 mg, Subcutaneous, Weekly ??? potassium chloride (KLOR-CON M20) 20 mEq tablet 20 mEq, Oral, Daily ??? rOPINIRole (REQUIP) 2 mg, Oral, 2 times daily ??? telmisartan-hydrochlorothiazide (MICARDIS HCT) 80-25 mg per tablet 1 tablet, Oral, Daily ??? temazepam (RESTORIL) 15 mg, Oral, Nightly PRN ??? venlafaxine XR (EFFEXOR-XR) 150 mg, Oral, Daily Physical Exam Constitutional: Appearance: Normal appearance. She is normal weight. HENT: Head: Normocephalic and atraumatic. Right Ear: Tympanic membrane, ear canal and external ear normal. Left Ear: Tympanic membrane, ear canal and external ear normal. Nose: Congestion and rhinorrhea present. Mouth/Throat: Mouth: Mucous membranes are moist. Pharynx: No oropharyngeal exudate or posterior oropharyngeal erythema. Eyes: Conjunctiva/sclera: Conjunctivae normal. Cardiovascular: Rate and Rhythm: Normal rate and regular rhythm. Heart sounds: Normal heart sounds. Pulmonary: Effort: No respiratory distress. Breath sounds: Normal breath sounds. No wheezing, rhonchi or rales. Musculoskeletal: Cervical back: Neck supple. Lymphadenopathy: Cervical: No cervical adenopathy. Skin: General: Skin is warm and dry. Neurological: General: No focal deficit present. Mental Status: She is alert. Psychiatric: Mood and Affect: Mood normal. Behavior: Behavior normal. Recent Results (from the past 24 hour(s)) POCT rapid strep A Collection Time: 11/09/21 1:46 PM Result Value Ref Range Rapid Strep A Screen Negative Negative, Valid, Invalid, Indeterminate, Trace, Not Applicable, CHARGE YES, CHARGE NO, see note, Detected, Not Detected, Equivocal Internal Control Rapid Strep A Screen Valid Sarah was seen today for sore throat and nasal congestion. Diagnoses and all orders for this visit: 1. Sore throat (Primary) - POCT rapid strep A - SARS-CoV-2 Antigen Detection - Point of Care 2. Coughing - trrboqpsbairctbl-yuqxfskax-JN 4-10-15 mg/5 mL Liquid; Take 5 mLs by mouth every 6 (six) hours as needed for up to 10 days., Starting 11/09/2021, Until Wed11/19/2021 at 2359, Normal - azithromycin (ZITHROMAX) 250 mg tablet; Take 2 tablets (500mg) once today (on Day1), followed by 1tablet (250mg) once daily on Day 2 through 5., Normal 3. Clinical diagnosis of COVID-19 - molnupiravir 200 mg Capsule; Take 4 capsules by mouth Twice a day 12 (twelve) hours apart for 5 days., Starting 11/09/2021, Until Wed11/14/2021, Print MDM MICHELE Teixeira documented in this encounter Plan of Treatment Upcoming Encounters Date Type Specialty Care Team Description 04/22/2022 Office Visit Family Medicine Anabelle Yost MD [address] [place] [address] Suite [facility] [place], [address] (Wo rk) Scheduled Orders Name Type Priority Associated Diagnoses Order S chedule SARS-CoV-2 Antigen Detection - Lab Routine Sore throa t Ordered: 11/09/2021 Point of Care documented as of this encounter Procedures Procedure Name Priority Date/Time Associated Diagnosis Comme nts POCT RAPID STREP A Routine 11/09/2021 1:46 PM Sore throat Res ults for this CDT procedure are i n the results section. documented in this encounter Results POCT rapid strep A (11/09/2021 1:46 PM CDT) [facility] Method Time Signature Rapid Strep A Negative Negative, Screen Valid, Invalid, Indeterminate , Trace, Not Applicable, CHARGE YES, CHARGE NO, see note, Detected, Not Detected, Equivocal Internal Valid Control Rapid Strep A Screen Specimen (Source) Anatomical Collection Method Collection Time Re ceived Time Location / / Volume Laterality Throat 11/09/2021 1:46 PM CDT Floyd BAUTISTA POINT OF CARE TEST ORDERABLE S documented in this encounter Visit Diagnoses Diagnosis Sore throat - Primary Acute pharyngitis Coughing Cough Clinical diagnosis of COVID-19 documented in this encounter Additional Health Concerns Infection Onset Date Last Indicated Resolved Time COVID-19 Rule out 11/09/2021 11/09/2021 12/07/2021 10: 37 PM CDT COVID-19 Confirmed 11/09/2021 11/09/2021 12/07/2021 10 :37 PM CDT documented as of this encounter Care Teams Booster Pump Oiler Relationship Specialty Start Date End Date Anabelle Yost MD PCP - General Family Medicine 10/03/[address] [place] [address] Suite [facility] [place] [address] documented as of this encounter
--- OUTSIDE RECORDS SUMMARY | 2022-02-01 20:27 | XMS_ITS | Encounter Summary ---
:1955 Author Organization [facility] and Its Subsidiaries and Affiliates Address [address] [address] [place] [address] Care Team Providers Name Role Phone Anabelle Yost MD Primary Care Provider Reason for Visit Reason Comments Advice Only Encounter Details Date Type Department Care Team Description 11/28/2021 Telephone [facility] Anabelle Whitehead MD [facility] [email or web address] [address] [place] [address] [address] [place], [address] [place], [address] [phone] Social History Tobacco Use Types Packs/Day Years [...] Telephone Encounter - Sarah Gomez LPN - 11/28/2021 1:02 PM CDT ----- Message from Daly Coulter sent at 11/28/2021 12:52 PM CDT ----- Regarding: RX REFILL PT NEEDS OZEMPIC REFILLED MITCH [facility]ENO. [phone]. FYI PT HAD A RIGHT HIP REVISION LAST WEEK AND PT IS AT [facility]. Telephone Encounter - Sarah Gomez LPN - 11/28/2021 1:02 PM CDT Called pt back. Pt verified by name and . Pt informed to check with pharmacy. Medication refills were sent to pharmacy. Pt says she received a text message from the pharmacy. Pt informed I will contact the pharmacy and check for her. Telephone Encounter - Sarah Gomez LPN - 11/28/2021 1:02 PM CDT Called pt. Pt verified by name and . Pt informed that the text from pharmacy was letting pt know ozempic prescription is ready for pickup. documented in this encounter Plan of Treatment Upcoming Encounters Date Type Specialty Care Team Description 04/22/2022 Office Visit Family Medicine Anabelle Yost MD [address] [place] [address] [address] [place] [address] (Wo rk) documented as of this encounter Visit Diagnoses Not on filedocumented in this encounter Additional Health Concerns Infection Onset Date Last Indicated Resolved Time COVID-19 Rule out 11/09/2021 11/09/2021 12/07/2021 10: 37 PM CDT COVID-19 Confirmed 11/09/2021 11/09/2021 12/07/2021 10 :37 PM CDT documented as of this encounter Care Teams Shank Scourer Relationship Specialty Start Date End Date Anabelle Yost MD PCP - General Family Medicine 10/03/[address] [place] [address] [place] [address] documented as of this encounter
--- OUTSIDE RECORDS SUMMARY | 2022-02-01 20:27 | XMS_ITS | Encounter Summary ---
:1955 Author Organization [facility] Address [address] [address] [place] [address] Care Team Providers Name Role Phone Unavailable Primary Care Provider Unavailable Encounter Details Date Type Department Care Team Description 01/03/2020 Hospital FM CONVERSION ENCOUN Brook Atkinson MD [address] [place] [address] [facility] [place] [phone] [place] [address] [phone] (Wo rk) Social History Tobacco Use Types Packs/Day Years Used Date Smoking Tobacco: Never Assessed Sex Assigned at Date Recorded Not on file documented as of this encounter Plan of Treatment Upcoming Encounters Date Type Specialty Care Team Description 04/22/2022 Office Visit Family Medicine Anabelle Yost MD [address] [facility] [address] [place] [address] (Wo rk) documented as of this encounter Procedures Procedure Name Priority Date/Time Associated Comments Diagnosis HISTORICAL CYTOLOGY Routine 01/03/2020 10:51 AM R esults for this CASE CDT procedure are i n the results section. documented in this encounter Results Historical Cytology Case (01/03/2020 10:51 AM CDT) Component Value Ref Test Analysis Performed At [facility] Range Method Time Signature Historical ST. Reporting [facility] ON [facility] Historical === Clinical Information: === ST. Reporting Specimen: Vaginal MACK Koo Date of LMP: 05/03/2000 ON [facility] Historical === Statement of Adequacy: === ST. Reporting Satisfactory for Evaluation. D BRITTANIE ON [facility] Final === Diagnosis: === ST. Diagnosis NEGATIVE FOR INTRAEPITHELIAL LESION OR MALIGNANCY. [facility] ON [facility] Historical === Drawing In Hand Note: === ST. Reporting Imaging was successful. MICHAEL ERIC ON [facility] Historical === Disclaimer === ST. Reporting The Pap smear is a cancer sc reening test that has an overall 15-25% false-negative rate. ??For this reason, an annual Pap smear is recommended. ??Please discuss this with your patients. ?? Testing performed using the ThinPrep Imaging System. [facility] ON [facility] Licensed Massage Practitioner: Leisa Elizabeth LABORATORY Verified by: Leisa Elizabeth (Electronically signed by) 01/05/20 9:30 AM Performing Location: [facility], [address] [facility], [address], [place], [address], CLIA [id number] Specimen (Source) Anatomical Collection Method Collection Time Re ceived Time Location / / Volume Laterality 01/03/2020 10:51 AM CDT Brook Meade MD PATHOLOGY/CYTOLOGY ORDERABLE S Performing Organization Address City/State/ZIP Code Phon e Number [place] [id number] [facility], [address] H[facility]ORY documented in this encounter Visit Diagnoses Not on filedocumented in this encounter
--- OUTSIDE RECORDS SUMMARY | 2022-02-01 20:27 | XMS_ITS | Encounter Summary ---
:1955 Author Organization [facility] and Its Subsidiaries and Affiliates Address [address] [address] [place] [address] Care Team Providers Name Role Phone Anabelle oYst MD Primary Care Provider Encounter Details Date Type Department Care Team Description 10/20/2021 History [facility] Anabelle Whitehead MD Associates [place] [place], [address] [place] [address] [phone] Social History Tobacco Use Types Packs/Day Years [...] Office Visit Family Medicine Anabelle Yost MD [address] [place] [address] [address] [place] [address] (Wo rk) documented as of this encounter Visit Diagnoses Not on filedocumented in this encounter Care Teams Construction Equipment Operator Relationship Specialty Start Date End Date Anabelle Yost MD PCP - General Family Medicine 10/03/21 [facility] [address] [place] [address] documented as of this encounter
--- OUTSIDE RECORDS SUMMARY | 2022-02-01 20:27 | XMS_ITS | Encounter Summary ---
:1955 Author Organization [facility] and Its Subsidiaries and Affiliates Address [address] [address] [place] [address] Care Team Providers Name Role Phone Unavailable Primary Care Provider Unavailable Encounter Details Date Type Department Care Team Description 12/10/2020 [facility] Floyd Madden MD [address] [place] [address] [place] [address] [phone] Social History Tobacco Use Types Packs/Day Years Used Date Smoking Tobacco: Never Assessed Sex Assigned at Date Recorded Not on file documented as of this encounter H&P Notes Enid Galindo NP - 12/10/2020 11:[address] Floyd Caal Surgery Date 12/24/2020 Surgery right reverse total shoulder arthroplasty Type of Anesthesia block vs general PCP Dr Anabelle Yost - PCP Dr George Benitez - pulmonary Dr Bertram Alcala - cardiology Dr Cassie Clemons - oncology [1] Chief Complaint right shoulder pain History of Present Illness Ms Doran is a 65-year-old female with predominant complaints of right shoulder pain.? She has had pain at night, pain at rest, and pain with activity.? She has tried and failed conservative measures and is reached the point for surgical intervention.? She has a past medical history to include?chronicheart failure,?anemia, anxiety, depression, diabetes,?obesity, hypertension, lymphedema,?restless leg?syndrome,?history of breast cancer, and osteoarthritis. ?She is referred for evaluation prior to her?right reverse total shoulder arthroplasty. Review of Systems Constitutional:?No fevers, chills, sweats Eye:?No recent visual problems ENMT:?No ear pain, nasal congestion, sore throat Respiratory: occasional shortness of breath, chronic?cough] Cardiovascular:?No Chest pain, palpitations, syncope Gastrointestinal: [No nausea, vomiting, occasional diarrhea Genitourinary:?No hematuria Seng/Lymph:?Negative for bruising tendency, swollen lymph glands Endocrine:?Negative for excessive thirst, excessive hunger Musculoskeletal:? Positive for decreased range of motion, joint pain, muscle pain Integumentary:?No rash, pruritus, abrasions Neurologic:?Alert & oriented X 4 Psychiatric:? Positive for anxiety and depression Physical Exam General:?Alert and oriented, no acute distress. Eye:?PERRL, EOMI, normal conjunctiva. HENT:?Normocephalic, clear tympanic membranes, normal hearing, moist oral mucosa, no scleral icterus, no sinus tenderness. Neck:?Supple, non-tender, no carotid bruits, no JVD, no lymphadenopathy. Lungs:?Clear to auscultation and percussion, non-labored respiration. Heart:?Normal rate, regular rhythm, no murmur, gallop or edema. Abdomen:?Soft, non-tender, non-distended, normal bowel sounds, no masses. Musculoskeletal:? Positive for decreased range of motion, pain, and tenderness in right shoulder Skin:?Skin is warm, dry and pink, no rashes or lesions. Neurologic:?Awake, alert, and oriented X3, CN II-XII intact. Psychiatric:?Cooperative, appropriate mood and affect.? SURGICAL RISKS Pulmonary Risks Patient has shortness of breath of unknown etiology; followed by Dr. George Benitez Pulmonary Plan Continue Breo perioperatively; encourage incentive spirometer postop Assessment/Plan 1.?Osteoarthritis Plan for right reverse total shoulder arthroplasty; hold aspirin 3 days prior to surgery. ?Hold diclofenac?7 days prior to surgery 2.?Acute on chronic diastolic heart failure Hold furosemide?the morning of surgery; monitor for problems 3.?Anemia Monitor H&H postoperatively; continue ferrous sulfate perioperatively 4.?Anxiety and depression Continue Effexor perioperatively 5.?Diabetes mellitus Hold metformin 24 hours prior to surgery 6.?HTN (hypertension) Hold telmisartan/hydrochlorothiazide the morning of surgery resume postoperatively if needed 7.?Lymphedema Monitor for problems postop 8.?Morbid obesity 9.?Restless legs syndrome Continue Restoril and Requip perioperatively 10.?Preoperative state Medications Inpatient No active inpatient medications Home Acidophilus Probiotic Blend, 1 cap, Oral, Daily aspirin 81 mg oral delayed release tablet, 81 mg, 1 tab, Oral, Daily Benadryl 25 mg oral capsule, 25 mg, 1 cap, Oral, every 6 hr, PRN Bentyl 10 mg oral capsule, 10 mg, 1 cap, Oral, TID, PRN biotin, 1 cap, Oral, Daily Breo Ellipta 200 mcg-25 mcg/inh inhalation powder, 1 puffs, Inhale, Daily Bystolic 5 mg oral tablet, 5 mg, 1 tab, Oral, Daily, 1 refills Caltrate 600 + D oral tablet, 1 tab, Oral, BID Colesevelam Hydrochloride 625 mg oral tablet, 1250 mg, 2 tab, Oral, Daily cyclobenzaprine 10 mg oral tablet, 10 mg, 1 tab, Oral, every 6 hr, PRN diclofenac sodium 75 mg oral delayed release tablet, 75 mg, 1 tab, Oral, BID Effexor XR 150 mg oral capsule, extended release, 150 mg, 1 cap, Oral, Daily ferrous sulfate 325 mg (65 mg elemental iron) oral delayed release tablet, 325 mg, 1 tab, Oral, With Breakfast (CB), 1 refills furosemide 40 mg oral tablet, 40 mg, 1 tab, Oral, Daily, PRN, 1 refills gabapentin 300 mg oral capsule, 300 mg, 1 cap, Oral, TID HYDROcodone-acetaminophen 10 mg-325 mg oral tablet, 1 tab, Oral, every 6 hr, PRN Klor-Con M20 oral tablet, extended release, 20 mEq, 1 tab, Oral, Daily, PRN, 1 refills loperamide 2 mg oral capsule, 2 mg, 1 cap, Oral, every 4 hr, PRN metFORMIN 500 mg oral tablet, 500 mg, 1 tab, Oral, Daily mirtazapine 30 mg oral tablet, 30 mg, 1 tab, Oral, HS multivitamin adult, oral tablet, 1 tab, Oral, Daily oxyCODONE-acetaminophen 10 mg-325 mg oral tablet, 1 tab, Oral, every 6 hr, PRN Restoril 30 mg oral capsule, 30 mg, 1 cap, Oral, HS, PRN rOPINIRole 2 mg oral tablet, 2 mg, 1 tab, Oral, Daily, PRN rOPINIRole 2 mg oral tablet, 2 mg, 1 tab, Oral, HS telmisartan-hydrochlorothiazide 80 mg-25 mg oral tablet, 1 tab, Oral, Daily, 1 refills Turmeric Supplement, 1 cap, Oral, Daily Vitamin C 1000 mg oral tablet, 1000 mg, 1 tab, Oral, Daily Allergies Macrobid?(Rash) Adhesive Bandage?(Erythema) Compazine?(Anaphylaxis) vancomycin?(Acute renal failure) Procedure/Surgical History Removal of Synthetic Substitute from Right Hip Joint, Femoral Surface, Open Approach (08/22/2019), Replacement of Right Hip Joint, Femoral Surface with Ceramic Synthetic Substitute, Open Approach (08/22/2019), Reposition Right Upper Femur with Internal Fixation Device, Open Approach (08/22/2019), Revision Arthroplasty Total Hip (Right) (08/22/2019), Arthroplasty Replacement Total Hip (Right) (06/14/2019), ARTHRP ACETBLR/PROX FEM PROSTC AGRFT/ALGRFT (06/14/2019), Blepharoplasty of both eyelids, Brachioplasty, Brow lift, CE - Cataract extraction, Cholecystectomy, Colonoscopy, Excision, Facelift surgery, Hysterectomy, Incision AND drainage, Liposuction, Mastectomy with excision of regional lymph nodes, ORIF - Open reduction and internal fixation of fracture, Simple mastectomy of left breast. Family History DM (mother); Breast cancer (mother); HTN (father); Arthritis (mother, father) [2] Social History Alcohol Current, Beer, Wine, 1-2 times per month Home/Environment Injuries/Abuse/Neglect in household: No. Feels unsafe at home: No. Safe place to go: Yes. Agency(s)/Others notified: No. Yarsanism restrictions/concerns: None. Lives with Alone. Marital Status of Patient if Patient Independent Adult: . Nutrition/Health Diet: Regular. Substance Use Never Tobacco Never (less than 100 in lifetime) Tobacco Use. plans to go home with home health after 1 night Problem List/Past Medical History Acute on chronic diastolic heart failure Anemia Anxiety and depression Diabetes mellitus Extreme obesity with alveolar hypoventilation HTN (hypertension) Lymphedema Morbid obesity Osteoarthritis Preoperative state Restless legs syndrome Historical No historical problems Lab Results (Last 24 Hours) PT: 13.4 seconds (12/10/20 12:40:00) INR: 1 (12/10/20 12:40:00) PTT: 25.3 seconds (12/10/20 12:40:00) UA Color: DK YELLOW Abnormal (12/10/20 12:54:00) UA Appear: CLEAR (12/10/20 12:54:00) UA Glucose: Neg (12/10/20 12:54:00) UA Bili: Neg (12/10/20 12:54:00) UA Ketones: TRACE Abnormal (12/10/20 12:54:00) UA Spec Grav: 1.03 (12/10/20 12:54:00) UA Blood: Neg (12/10/20 12:54:00) UA pH: 6.5 (12/10/20 12:54:00) UA Protein: TRACE Abnormal (12/10/20 12:54:00) UA Urobilinogen: 0.2 (12/10/20 12:54:00) UA Nitrite: Neg (12/10/20 12:54:00) UA Leuk Est: Neg (12/10/20 12:54:00) UA WBC: 1 /HPF (12/10/20 12:54:00) UA RBC: 1 /HPF (12/10/20 12:54:00) UA Epi Cells:? 7 /HPF? High (12/10/20 12:54:00) UA Casts: 5 (12/10/20 12:54:00) UA Inst Bact: 290.4 /uL (12/10/20 12:54:00) UA Comments: See Footnote (12/10/20 12:54:00) Diagnostic Results (Last 24 Hours) No qualifying data available. No qualifying data available. [1]? Preoperative History & Physical; Mateo ARGUELLES,BJORN JUÁREZ, Enid Zambrano 05/31/2019 12:27 INTERNATIONAL MANAGER [2]? Preoperative History & Physical; Mateo ARGUELLES,BJORN JUÁREZ, Enid Zambrano 05/31/2019 12:27 INTERNATIONAL MANAGER Signature Line Electronically Signed on 12/12/20 01:31 PM BJORN Clifton, Enid Zambrano Electronically Signed on 12/13/20 01:41 PM Afua SILVA, Floyd Barboza documented in this encounter Plan of Treatment Upcoming Encounters Date Type Specialty Care Team Description 04/22/2022 Office Visit Family Medicine Anabelle Yost MD [address] [place] [address] [place], [address] (Wo rk) documented as of this encounter Visit Diagnoses Not on filedocumented in this encounter
--- OUTSIDE RECORDS SUMMARY | 2022-02-01 20:27 | XMS_ITS | Encounter Summary ---
:1955 Author Organization [facility] and Its Subsidiaries and Affiliates Address [address] [address] [place] [address] Care Team Providers Name Role Phone Anabelle Yost MD Primary Care Provider Reason for Visit Reason Comments Other Encounter Details Date Type Department Care Team Description 12/01/2021 Telephone [facility] Anabelle Whitehead MD Other Associates [employer] [address] [facility] [address] [place], [address] [place] [address] [phone] Social History Tobacco Use Types Packs/Day Years [...] Telephone Encounter - Sarah Gomez LPN - 12/01/2021 8:14 AM CDT ----- Message from Kennedy Roa sent at 11/28/2021 3:16 PM CDT ----- Regarding: Nurse Call Back Contact: Pt Pt needs to speak w/ the nurse. Please call back. CB# [phone] Telephone Encounter - Sarah Gomez LPN - 12/01/2021 8:14 AM CDT Called pt. Pt verified by name and . Pt c/o that pharmacy does not have ozempic prescription. Pt informed I will contact pharmacy again. I was informed by Jennifer at pharmacy on Wednesday prescription isready for crab picker. Pt informed I will call her back. Telephone Encounter - Sarah Gomez LPN - 12/01/2021 8:14 AM CDT Spoke to Jennifer at the pharmacy. Jennifer apologized she misunderstood on Wednesday she admits she thought we were discussing lovenox(enoxaparin) for pt. Jennifer says pharmacy did not received prescription on 10/20/[address] Yost for ozempic called into pharmacy. Telephone Encounter - Sarah Gomez LPN - 12/01/2021 8:14 AM CDT Called pt. Pt verified by name and . Pt informed that I spoke with Jennifer at the pharmacy she willget prescription ready for pt. Pt thanked me for calling. Telephone Encounter - Sarah Gomez LPN - 12/01/2021 8:14 AM CDT Please sign called into pharmacy documented in this encounter Plan of Treatment Upcoming Encounters Date Type Specialty Care Team Description 04/22/2022 Office Visit Family Medicine Anabelle Yost MD [address] [place] [address] [place] [address] (Wo rk) documented as of this encounter Visit Diagnoses Diagnosis Type 2 diabetes mellitus without complic ation, without long-term current use of insulin (HCC) documented in this encounter Additional Health Concerns Infection Onset Date Last Indicated Resolved Time COVID-19 Rule out 11/09/2021 11/09/2021 12/07/2021 10: 37 PM CDT COVID-19 Confirmed 11/09/2021 11/09/2021 12/07/2021 10 :37 PM CDT documented as of this encounter Care Teams Fleet Operations Manager Relationship Specialty Start Date End Date Anabelle Yost MD PCP - General Family Medicine 10/03/[address] [place] [address] [place] [id number] documented as of this encounter
--- OUTSIDE RECORDS SUMMARY | 2022-02-01 20:27 | XMS_ITS | Encounter Summary ---
:1955 Author Organization [facility] and Its Subsidiaries and Affiliates Address [address] [address] [place] [address] Care Team Providers Name Role Phone Unavailable Primary Care Provider Unavailable Encounter Details Date Type Department Care Team Description 05/21/2020 [facility] Lolly Siddiqui MD HOSPITAL - MED SURG [address] [place] [address] OBSERVATION UNIT [address] [place] [address] [place] [address] Social History Tobacco Use Types Packs/Day Years Used Date Smoking Tobacco: Never Assessed Sex Assigned at Date Recorded Not on file documented as of this encounter Discharge Summaries Zari Jurado PA - 05/23/2020 1:56 PM CST Final Discharge Diagnoses 1.?Acute on chronic diastolic heart failure 2.?Diabetes mellitus 3.?Restless legs syndrome 4.?HTN (hypertension) 5.?Morbid obesity 6.?Anemia 7.?Extreme obesity with alveolar hypoventilation Discharge Medications Home Acidophilus Probiotic Blend, 1 [...] tablet, 30 mg, 1 tab, Oral, HS Mucinex 600 mg oral tablet, extended release, 600 mg, 1 tab, Oral, every 12 hr multivitamin adult, oral tablet, 1 tab, Oral, [...] tablet, 1 tab, Oral, Daily, 1 refills Tessalon Perles 100 mg oral capsule, 200 mg, 2 cap, Oral, TID, PRN Turmeric Supplement, 1 cap, Oral, Daily Vitamin C 1000 mg oral tablet, 1000 mg, 1 tab, Oral, Daily Procedures none Consults none Studies XR Chest 1 View AP ? 05/21/20 11:36:18 IMPRESSION: ? 1. No acute findings. ? Signer Name: Angelo Bell MD Signed: 05/21/2020 11:36 AM ? ? ? XR Chest 1 View AP PAGE 1 ? Signed By: Ray SILVA, Angelo Camp ? CT Chest PE Protocol W Contrast ? 05/21/20 16:27:57 IMPRESSION: No evidence of pulmonary embolus Central Venous obstructive changes and the mediastinum as above ? Signer Name: Damien Gonzáles MD Signed: 05/21/2020 4:37 PM ? ? ? CT Chest PE Protocol W Contrast PAGE 1 ? Signed By: Nivia SILVA, Damien Damico Physical Exam Vitals & Measurements T:? 37.1? ?C ?(Axillary)? T:? 36.6? ?C ?(Oral)? TMIN:? 36.6? ?C ?(Oral)? TMAX:? 37.1? ?C ?(Axillary)? HR:? 78?(Monitored)? BP:? 137 / 93 ? SpO2:? 94%? General: well but morbidly obese?appearing, no acute distress. Lungs: Normal chest wall expansion, Clear to auscultation Heart: Normal rate, regular rhythm, no murmur,?1+ LE edema; chronic UE lymphedema Abdomen: Soft, non-tender,? normal bowel sounds; protuberant vs distended Neurologic: Awake, alert, and oriented X3, no new neurofocal deficits Psychiatric: Cooperative, anxious Hospital Course (significant findings) The patient is a pleasant 65-year-old female with past medical history of newly diagnoseddiastolic systolic heart failure,?hypertension,?osteomyelitis of the hip requiring multiple surgeries with?last year,?breast cancer status post double mastectomy, who presented to the ER for evaluationof shortness of breath. Patient was evaluated by ER physician. ?Vitals are stable. ?White blood cellcount 6.0, hemoglobin 8.0, crit 28.2, albumin 3.3,?troponin is negative.?BNP is 126. ?Chest x-ray shows no acute process. ?Patient was referred to our service for further evaluation and care. ?Patient was placed observation for further evaluation. ?She was given IV Lasix with Zaroxolyn with improvement of her symptoms. ?She did have significant mount of weight loss during her stay.? Her main concern is the ability to get back towards the bathroom when she discharges home due to her previous hip surgery. ?She was recently released from rehab at [facility].? We will set her up with home health PROCTOLOGIST and RN. ?At this time she is stable for discharge home. ?I have refilled her medications. ?I did suggest for her to have an outpatient sleep study-patient reports she will think about it. Follow Up Appointments ?Dr Anabelle Yost in 2 weeks [facility] in 2-4 weeks Condition on Discharge stable Discharge Disposition home with home health Time Spent 31 minutes Chief Complaint pt presnts to the er with SOB, increased fluid. pt denies dx of CHF. pt sent from [facility]. hxHTN, DN, EDEMA. Lab Results (Last 24 Hours) POC Bld Glu Lvl:? 153 mg/dL? High (05/23/20 11:08:00) POC Bld Glu Lvl:? 147 mg/dL? High (05/23/20 07:07:00) Glu Lvl:? 147 mg/dL? High (05/23/20 05:43:00) BUN Lvl: 14 mg/dL (05/23/20 05:43:00) Creatinine Lvl: 0.8 mg/dL (05/23/20 05:43:00) BUN/Creat: 17.5 ratio (05/23/20 05:43:00) eGFR AA: >60 (05/23/20 05:43:00) eGFR Non-AA: >60 (05/23/20 05:43:00) Na Lvl: 141 mmol/L (05/23/20 05:43:00) K Lvl: 4.4 mmol/L (05/23/20 05:43:00) Chloride Lvl: 98 mmol/L (05/23/20 05:43:00) CO2 Lvl:? 34 mmol/L? High (05/23/20 05:43:00) AGAP: 13 mmol/L (05/23/20 05:43:00) Calcium Lvl: 8.9 mg/dL (05/23/20 05:43:00) Magnesium Lvl: 2.2 mg/dL (05/23/20 05:43:00) Signature Line Electronically Signed on 05/23/20 01:57 PM Zari Dunlap Electronically Signed on 05/25/20 12:27 PM Lolly Le MD documented in this encounter H&P Notes Zari Jurado PA - 05/21/2020 3:00 PM CST Primary Care Physician PCP: Anabelle Yost Card: Dr Alcala Chief Complaint pt presnts to the er with SOB, increased fluid. pt denies dx of CHF. pt sent from [facility]. hxHTN, DN, EDEMA. History of Present Illness The patient is a pleasant 65-year-old female with past medical history of newly diagnoseddiastolic systolic heart failure,?hypertension,?osteomyelitis of the hip requiring multiple surgeries with?last year,?breast cancer status post double mastectomy, who presented to the ER for evaluationof shortness of breath. ? Patient reports she was just discharged from [facility] on Wednesday. ?She states since then shehas had worsening shortness of breath?and significant orthopnea. ?She states any time she lives at/become so short of breath that she has a panic attack.? She denies any significant dyspnea on exertion. ?She does complain of significant anasarca with?also pitting lower extremity edema. ?She states shehad a an appointment with cardiology this morning?with [facility]?who performed echocardiogram which showed?LVEF of 55 to 60% with diastolic heart failure and no valvular disease. ?Patient presented to our ER for further evaluation. ?She denies any chest pain, nausea, vomiting, diarrhea. ? Patient was evaluated by ER physician. ?Vitals are stable. ?White blood cell count 6.0, hemoglobin 8.0, crit 28.2, albumin 3.3,?troponin is negative.?BNP is 126. ?Chest x-ray shows no acute process. ?Patient was referred to our service for further evaluation and care. Review of Systems + anasarca, LE edema + orthopnea; SOB + anxiety Otherwise?10 ?system review negative except mentioned in HPI Physical Exam Vitals & Measurements T:? 36.6? ?C ?(Oral)? HR:? 67?(Peripheral)? HR:? 69?(Monitored)? RR:? 20? BP:? 133 / 61 ? SpO2:? 100%? WT:? 160?kg?(Dosing)? General: well but morbidly obese?appearing, no acute distress. Eye: PERRL, EOMI, normal conjunctiva. HENT: Normocephalic, normal hearing, moist oral mucosa Neck: Supple, non-tender Lungs: Normal chest wall expansion, Clear to auscultation but distant Heart: Normal rate, regular rhythm, no murmur,?2+ edema. Abdomen: Soft, non-tender,? normal bowel sounds; protuberant vs distended Musculoskeletal: Normal range of motion Skin: Skin is warm, dry and pink, no rashes or lesions. Neurologic: Awake, alert, and oriented X3, no new neurofocal deficits Psychiatric: Cooperative, anxious Assessment/Plan 1.?Acute on chronic diastolic heart failure ?diastolic dysfunction according to outside Echo at [facility] today- EF 55-60% 2.?Diabetes mellitus 3.?Restless legs syndrome 4.?HTN (hypertension) 5.?Morbid obesity Plan: Place patient in observation. ?Follow on telemetry, strict intake and output, daily weight, 2g sodium diet.? We will continue with IV Lasix twice daily.??CHF coordinator consulted.?Will restartother home medications once verified by med reconciliation team. ?Obtain CT PE as patient does have risk factors for PE considering recent hip surgery and decreased amount of activity.? Start the patient on glycemic control order set monitor CBGs AC at bedtime. Also obtain anemia profile orders Problem List/Past Medical History Acute on chronic diastolic heart failure Anxiety and depression Diabetes mellitus HTN (hypertension) Morbid obesity Osteoarthritis Restless legs syndrome Historical No historical problems Procedure/Surgical History Removal of Synthetic Substitute from [...] Simple mastectomy of left breast. Medications Inpatient Colace, 100 mg, 1 cap, Oral, BID, PRN Lasix, 40 mg, 4 mL, IV Push, Once Lasix, 40 mg, 4 mL, IV Push, BID Lovenox, 40 mg, Subcutaneous, Daily Restoril, 15 mg, 1 cap, Oral, HS, PRN Tums 500 (calcium carbonate 500 mg (elemental Ca 200 mg)) oral tab, chewable, 500 mg, 1 tab, Oral, QID, PRN Tylenol, 650 mg, 2 tab, Oral, every 6 hr, PRN Zofran, 4 mg, 2 mL, [...] adult, oral tablet, 1 tab, Oral, Daily Phenergan 12.5 mg oral tablet, 12.5 mg, [...] 1 tab, Oral, every 8 hr, PRN Allergies Macrobid?(Rash) Adhesive Bandage?(Erythema) Compazine?(Anaphylaxis) vancomycin?(Acute renal [...] 100 in lifetime) Tobacco Use. Family History DM, hypertension Lab Results (Last 24 Hours) WBC: 6 k/uL (05/21/20 10:46:00) RBC:? 3.39 M/uL? Low (05/21/20 10:46:00) Hgb:? 8 g/dL? Low (05/21/20 10:46:00) Hct:? 28.2 %? Low (05/21/20 10:46:00) MCV: 83.2 fL (05/21/20 10:46:00) MCH:? 23.6 pg? Low (05/21/20 10:46:00) MCHC:? 28.4 g/dL? Low (05/21/20 10:46:00) Platelets: 289 k/uL (05/21/20 10:46:00) RDW-SD:? 57 fL? High (05/21/20 10:46:00) MPV: 10.7 fL (05/21/20 10:46:00) Neutro Auto: 68 % (05/21/20 10:46:00) Lymph Auto: 20 % (05/21/20 10:46:00) [place] Auto: 9 % (05/21/20 10:46:00) Eos Auto: 3 % (05/21/20 10:46:00) Baso Auto: 1 % (05/21/20 10:46:00) Imm Gran Auto: 0 % (05/21/20 10:46:00) Neutro Abs: 4 k/uL (05/21/20 10:46:00) Lymph Abs: 1.2 k/uL (05/21/20 10:46:00) [place] Abs: 0.5 k/uL (05/21/20 10:46:00) Eos Abs: 0.2 k/uL (05/21/20 10:46:00) Baso Abs: 0 k/uL (05/21/20 10:46:00) Imm Gran Abs: 0 k/uL (05/21/20 10:46:00) PT: 14.2 seconds (05/21/20 10:46:00) INR: 1.07 (05/21/20 10:46:00) Glu Lvl:? 127 mg/dL? High (05/21/20 10:46:00) BUN Lvl: 16 mg/dL (05/21/20 10:46:00) Creatinine Lvl: 0.8 mg/dL (05/21/20 10:46:00) BUN/Creat: 20 ratio (05/21/20 10:46:00) eGFR AA: >60 (05/21/20 10:46:00) eGFR Non-AA: >60 (05/21/20 10:46:00) Na Lvl: 141 mmol/L (05/21/20 10:46:00) K Lvl: 4.5 mmol/L (05/21/20 10:46:00) Chloride Lvl: 104 mmol/L (05/21/20 10:46:00) CO2 Lvl: 30 mmol/L (05/21/20 10:46:00) AGAP: 12 mmol/L (05/21/20 10:46:00) Calcium Lvl: 8.9 mg/dL (05/21/20 10:46:00) Protein Total:? 6.3 g/dL? Low (05/21/20 10:46:00) Albumin Lvl:? 3.3 g/dL? Low (05/21/20 10:46:00) Globulin Lvl: 3 g/dL (05/21/20 10:46:00) A/G Ratio: 1.1 ratio (05/21/20 10:46:00) Bili Total: 0.4 mg/dL (05/21/20 10:46:00) Bili Direct: 0.2 mg/dL (05/21/20 10:46:00) AST (SGOT):? 49 unit/L? High (05/21/20 10:46:00) ALT (SGPT): 61 unit/L (05/21/20 10:46:00) Alk Phos:? 149 unit/L? High (05/21/20 10:46:00) POC Troponin-I: 0.01 ng/mL (05/21/20 10:49:00) BNP: 126.6 pg/mL (05/21/20 10:46:00) Diagnostic Results XR Chest 1 View AP ? 05/21/20 11:36:18 IMPRESSION: ? 1. No acute findings. ? Signer Name: Angelo Bell MD Signed: 05/21/2020 11:36 AM ? ? ? XR Chest 1 View AP PAGE 1 ? Signed By: Ray SILVA, Angelo Zoë Signature Line Electronically Signed on 05/21/20 03:01 PM Zari Dunlap Electronically Signed on 05/21/20 03:53 PM Lolly Le MD documented in this encounter Plan of Treatment Upcoming Encounters Date Type Specialty Care Team Description 04/22/2022 Office Visit Family Medicine Anabelle Yost MD [address] [facility] [address] [place] [address], [place] [address] (Wo rk) documented as of this encounter Procedures Procedure Name Priority Date/Time Associated Diagnosis Comme nts CT ANGIOGRAM Routine 05/21/2020 4:23 PM Results f or this PULMONARY CHEMICAL PROCESSING LABORER procedure are i n the results section. documented in this encounter Results CT Angiogram Pulmonary (05/21/2020 4:23 PM CHEMICAL PROCESSING LABORER) Anatomical Region Laterality Modality Computed Tomography Specimen (Source) Anatomical Collection Method Collection Time Re ceived Time Location / / Volume Laterality 05/21/2020 4:23 PM CHEMICAL PROCESSING LABORER Narrative 05/21/2020 4:23 PM CHEMICAL PROCESSING LABORER ?[facility] ? [place], [place] ?EXAM: CT Chest PE Protocol W Contr ast ?EXAM: CT Chest PE Protocol W Contr ast ?DATE OF EXAM: ??05/21/2020 4:19 PM ?INDICATION FOR STUDY: ??Shortness of breath, edema wells score equal to ?7.5 ?COMPARISON: ??No priors. ?TECHNIQUE: ?1.5 mm axial images were obtained through the chest from the thoracic ?inlet and through the diaphragm fo llowing the bolus demonstration of IV ?contrast. Subsequently routine 5 m m postcontrast images were obtained ?through the chest. The images were post processed with multiplanar MIPS ?images available for review. This is per the pulmonary embolus protocol. ?This CT exam was performed using o ne or more of the following dose ?reduction techniques: Automated ex posure control, adjustment of mA and/or ?KV according to patient size, and/ or use of iterative reconstruction ?technique. ?FINDINGS: ?No pulmonary embolus is identified . ?The heart size is normal. 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 ?No suspicious adenopathy or mass i s seen within the mediastinal, hilar, ?supraclavicular or axillary region s. ?No pericardial or pleural fluid is seen. ?No acute infiltrate, suspicious pu lmonary nodule or pneumothorax is seen. ?No suspicious bone lesion is seen ?IMPRESSION: ?No evidence of pulmonary embolus ?Central Venous obstructive changes and the mediastinum as above ?Signer Name: Damien Gonzáles MD ?Signed: 05/21/2020 4:37 PM ? CT Chest PE Protocol W Contrast ?PAGE 1 Procedure Note RADIOLOGIST/EXPERIMENTAL MECHANIC ELECTRICAL AT [facility] - 07/19 [place], [place] EXAM: CT Chest PE Protocol W Contrast EXAM: CT Chest PE Protocol W Contrast DATE OF EXAM: 05/21/2020 4:19 PM INDICATION FOR STUDY: Shortness of funmi th, edema wells score equal to 7.5 COMPARISON: No priors. TECHNIQUE: 1.5 mm axial images were obtained throu gh the chest from the thoracic inlet and through the diaphragm followi ng the bolus demonstration of IV contrast. Subsequently routine 5 mm pos tcontrast images were obtained through the chest. The images were post processed with multiplanar MIPS images available for review. This is pe r the pulmonary embolus protocol. This CT exam was performed using one or more of the following dose reduction techniques: Automated exposur e control, adjustment of mA and/or KV according to patient size, and/or us e of iterative reconstruction technique. FINDINGS: No pulmonary embolus is identified. The heart size is normal. The left brachiocephalic vein is severe ly narrowed resulting in an obstructing changes with venous collate rals about the mediastinum about the upper thoracic lower cervical spine . No suspicious adenopathy or mass is see n within the mediastinal, hilar, supraclavicular or axillary regions. No pericardial or pleural fluid is seen . No acute infiltrate, suspicious pulmona ry nodule or pneumothorax is seen. No suspicious bone lesion is seen IMPRESSION: No evidence of pulmonary embolus Central Venous obstructive changes and the mediastinum as above Signer Name: Damien Gonzáles MD Signed: 05/21/2020 4:[address] Chest PE Protocol W Contrast PAGE 1 Conversion Ordering Provider IMG CT ORDERABLES documented in this encounter Visit Diagnoses Not on filedocumented in this encounter
--- OUTSIDE RECORDS SUMMARY | 2022-02-01 20:27 | XMS_ITS | Encounter Summary ---
:1955 Author Organization [facility] and Its Subsidiaries and Affiliates Address [address] [address] [place] [address] Care Team Providers Name Role Phone Unavailable Primary Care Provider Unavailable Encounter Details Date Type Department Care Team Description 06/14/2019 [facility] Jeimy Marrero MD [facility] - MED SURG [address] [place] [address] [place] [address] Social History Tobacco Use Types Packs/Day Years Used Date Smoking Tobacco: Never Assessed Sex Assigned at Date Recorded Not on file documented as of this encounter Discharge Summaries Enid Galindo NP - 06/16/2019 10:47 AM CST Final Discharge Diagnoses 1.?Osteoarthritis 2.?Anxiety and depression 3.?Diabetes 4.?Diarrhea 5.?HTN (hypertension) 6.?Restless legs syndrome 7.?Preoperative state Discharge Medications Home Acidophilus Probiotic Blend, 1 [...] oral tablet, 1 tab, Oral, Daily Percocet 10 mg-325 mg oral tablet, 1 tab, Oral, every 6 hr, PRN Restoril 30 mg oral capsule, 30 mg, 1 cap, Oral, HS Spiriva, 18 mcg, Inhale, Daily telmisartan-hydrochlorothiazide 80 mg-25 mg oral tablet, 1 tab, Oral, Daily venlafaxine 75 mg oral capsule, extended release, 75 mg, 1 cap, Oral, Daily Vitamin C, Oral, Daily Procedures right total hip arthroplasty Physical Exam Vitals & Measurements T:? 37? ?C ?(Oral)? HR:? 93?(Monitored)? RR:? 18? BP:? 118 / 69 ? BP:? 120 / 63 ?(Sitting)? SpO2:? 91%? General: Alert and oriented, well nourished, no acute distress . Eye: PERRL, EOMI, normal conjunctiva . HENT: Normocephalic, clear tympanic membranes, normal hearing, moist oral mucosa, no scleral icterus, no sinus tenderness . Neck: Supple, non-tender, no carotid bruits, no JVD, no lymphadenopathy . Lungs: Clear to auscultation and percussion, non-labored respiration . Heart: Normal rate, regular rhythm, no murmur, gallop or edema . Abdomen: Soft, non-tender, non-distended, normal bowel sounds, no masses . Musculoskeletal: Ambulating well with physical therapy, sensation intact bilaterally, moving foot and ankle. Skin: Skin is warm, dry and pink, no rashes or lesions .? Dressing clean, dry, and intact. Neurologic: Awake, alert, and oriented X3, CN II-XII intact . Psychiatric: Cooperative, appropriate mood and affect . Hospital Course (significant findings) Mrs Garnett is a 64-year-old female with predominant complaints of right hip pain. ?She had had pain at night, pain at rest, and pain with activity.? She had tried and failed conservative measures and had reached the point for surgical intervention. ?She is admitted on June 14, 2019 to undergo right total hip arthroplasty by Dr. Christensen. ?She tolerated the procedure well and was moved the floor postoperatively. ?She is continued to improve with physical therapy and her pain is well controlled today. ?She is felt to be safe to be discharged home today. ?She will be discharged home on Eliquis 2.5 mg?1 tablet?twice daily for a month. ?She is given Percocet 10/325 mg 1 tablet every 6 hours as needed for pain.? She is weightbearing as tolerated to the right lower extremity, and has been instructed to maintain hip precautions at all times.? She will continue physical therapy at home with home health. ?She has a Mepilex dressing that we removed in 10 days. ?She is to follow-up in clinic with Dr. Christensen?on July 20, 2019.? She has been instructed to call Dr. Burger clinic prior to her appointment for any further problems or complaints. Follow Up Appointments Julian SILVA, Jeimy Goodwin on 07/20/19 03:15 ? Condition on Discharge stable Discharge Disposition home with home health Diet regular Physical Activity Weightbearing as tolerated to right lower extremity; maintain hip precautions at all times. ?Continue physical therapy at home with home health. Chief Complaint right hip pain Lab Results (Last 24 Hours) WBC: 9 k/uL (06/16/19 03:41:00) RBC:? 3.59 M/uL? Low (06/16/19 03:41:00) Hgb:? 10.3 g/dL? Low (06/16/19 03:41:00) Hct:? 33.5 %? Low (06/16/19 03:41:00) MCV: 93.3 fL (06/16/19 03:41:00) MCH: 28.7 pg (06/16/19 03:41:00) MCHC:? 30.7 g/dL? Low (06/16/19 03:41:00) Platelets: 198 k/uL (06/16/19 03:41:00) RDW-SD:? 49.8 fL? High (06/16/19 03:41:00) MPV: 10.6 fL (06/16/19 03:41:00) Neutro Auto: 71 % (06/16/19 03:41:00) Lymph Auto: 20 % (06/16/19 03:41:00) Dundy Auto: 8 % (06/16/19 03:41:00) Eos Auto: 1 % (06/16/19 03:41:00) Baso Auto: 0 % (06/16/19 03:41:00) Imm Gran Auto: 0 % (06/16/19 03:41:00) Neutro Abs: 6.4 k/uL (06/16/19 03:41:00) Lymph Abs: 1.8 k/uL (06/16/19 03:41:00) Dundy Abs: 0.7 k/uL (06/16/19 03:41:00) Eos Abs: 0 k/uL (06/16/19 03:41:00) Baso Abs: 0 k/uL (06/16/19 03:41:00) Imm Gran Abs: 0 k/uL (06/16/19 03:41:00) Glu Lvl:? 156 mg/dL? High (06/16/19 03:41:00) BUN Lvl: 17 mg/dL (06/16/19 03:41:00) Creatinine Lvl: 0.8 mg/dL (06/16/19 03:41:00) BUN/Creat: 21.2 ratio (06/16/19 03:41:00) eGFR AA: >60 (06/16/19 03:41:00) eGFR Non-AA: >60 (06/16/19 03:41:00) Na Lvl:? 134 mmol/L? Low (06/16/19 03:41:00) K Lvl: 4.3 mmol/L (06/16/19 03:41:00) Chloride Lvl: 100 mmol/L (06/16/19 03:41:00) CO2 Lvl: 29 mmol/L (06/16/19 03:41:00) AGAP:? 9 mmol/L? Low (06/16/19 03:41:00) Calcium Lvl:? 8 mg/dL? Low (06/16/19 03:41:00) Imaging Results (Last 24 Hours) No qualifying data available. Signature Line Electronically Signed on 06/16/19 10:50 AM Mateo ARGUELLES,BJORN BC, Enid Zambrano Electronically Signed on 06/21/19 02:35 PM Julian SILVA, Jeimy Goodwin documented in this encounter H&P Notes Jeimy Christensen MD - 06/14/2019 6:19 AM CST H&P Update I have reviewed the H&P and examined the patient: I find that there are no changes to the patients condition, medications, or treatment plan since the original H&P was completed. Physical Exam No changes to patients status. Assessment/Plan Indications for previously documented treatment plan remains appropriate. Medications No changes in patients medications. Home Medications (24) Active Acidophilus Probiotic Blend?1 cap, Oral, Daily aspirin 81 mg oral delayed release tablet?81 mg = 1 tab, Oral, Daily Benadryl 25 mg oral capsule?50 mg = 2 cap, PRN, Oral, every 6 hr Bentyl 10 mg oral capsule?10 mg = 1 cap, PRN, Oral, TID Breo Ellipta 200 mcg-25 mcg/inh inhalation powder?1 puffs, Inhale, Daily Bystolic 5 mg oral tablet?5 mg = 1 tab, Oral, Daily Caltrate 600 + D oral tablet?1 tab, Oral, BID Colesevelam Hydrochloride 625 mg oral tablet?625 mg = 1 tab, Oral, Daily cyclobenzaprine 10 mg oral tablet?10 mg = 1 tab, PRN, Oral, every 6 hr diclofenac sodium 75 mg oral delayed release tablet?75 mg = 1 tab, Oral, BID Effexor XR 150 mg oral capsule, extended release?150 mg = 1 cap, Oral, Daily furosemide 40 mg oral tablet?40 mg = 1 tab, PRN, Oral, Daily HYDROcodone-acetaminophen 5 mg-325 mg oral tablet?1 tab, PRN, Oral, every 6 hr Hydromet 5 mg-1.5 mg/5 mL oral syrup?5 mL, PRN, Oral, every 6 hr Klor-Con M20 oral tablet, extended release?20 mEq = 1 tab, PRN, Oral, Daily loperamide 2 mg oral capsule?2 mg = 1 cap, PRN, Oral, every 4 hr metFORMIN 500 mg oral tablet?500 mg = 1 tab, Oral, BID multivitamin adult, oral tablet?1 tab, Oral, Daily Restoril 30 mg oral capsule?30 mg = 1 cap, Oral, every day at bedtime rOPINIRole 2 mg oral tablet?2 mg = 1 tab, Oral, HS Spiriva?18 mcg, Inhale, Daily telmisartan-hydrochlorothiazide 80 mg-25 mg oral tablet?1 tab, Oral, Daily venlafaxine 75 mg oral capsule, extended release?75 mg = 1 cap, Oral, Daily Vitamin C?, Oral, Daily Procedure/Surgical History Blepharoplasty of both eyelids, Brachioplasty, Brow lift, CE - Cataract extraction, Cholecystectomy, Colonoscopy, Excision, Facelift surgery, Hysterectomy, Incision AND drainage, Liposuction, Mastectomy with excision of regional lymph nodes, ORIF - Open reduction and internal fixation of fracture, Simple mastectomy of left breast. Signature Line Electronically Signed on 06/14/19 06:19 AM Julian SILVA, Jeimy Goodwin Enid Galindo NP - 05/31/2019 12:[address] Christensen Surgery Date 06/14/2019 Surgery right total hip arthroplasty Type of Anesthesia block vs general PCP Dr Anabelle Yost - PCP Dr George Benitez - pulmonary Dr Bertram Alcala - cardiology Dr Matthews Clemons - oncology Chief Complaint right hip pain History of Present Illness Ms. Garnett is a 64-year-old female with predominant complaints of right hip pain. ?She has had pain at night, pain at rest, and pain with activity. ?She has tried and failed conservative measures to include activity modifications, anti- inflammatories, and narcotics. ?She continues to have pain and discomfort in her right hip and it is affecting her activities of daily living.? Due to having tried andfailed conservative measures she is reached the point for surgical intervention.? She has a past medical history to include anxiety, depression, shortness of breath,?diabetes, diarrhea, difficulties with anesthesia,?hypertension,?history of cancer, restless leg, and osteoarthritis.? She was referred for evaluation prior to her right total hip arthroplasty. Review of Systems Constitutional: No fevers, chills, sweats Eye: No recent visual problems ENMT: No ear pain, nasal congestion, sore throat Respiratory:? occasional shortness of breath, chronic cough and wheeze Cardiovascular: No Chest pain, palpitations, syncope Gastrointestinal: [No nausea, vomiting, positive for diarrhea Genitourinary: No hematuria Seng/Lymph: Negative for bruising tendency, swollen lymph glands Endocrine: Negative for excessive thirst, excessive hunger Musculoskeletal: Positive for decreased range of motion, joint pain, muscle pain Integumentary: No rash, pruritus, abrasions Neurologic: Alert & oriented X 4 Psychiatric:? positive for?anxiety and?depression Physical Exam Vitals & Measurements HR:? 75?(Peripheral)? BP:? 141 / 94 ? WT:? 141.52?kg?(Dosing)? General: Alert and oriented, well nourished, no acute distress . Eye: PERRL, EOMI, normal conjunctiva . HENT: Normocephalic, clear tympanic membranes, normal hearing, moist oral mucosa, no scleral icterus, no sinus tenderness . Neck: Supple, non-tender, no carotid bruits, no JVD, no lymphadenopathy . Lungs: Clear to auscultation and percussion, non-labored respiration . Heart: Normal rate, regular rhythm, no murmur, gallop or edema . Abdomen: Soft, non-tender, non-distended, normal bowel sounds, no masses . Musculoskeletal: Positive for decreased range of motion, pain, and tenderness in right hip Skin: Skin is warm, dry and pink, no rashes or lesions . Neurologic: Awake, alert, and oriented X3, CN II-XII intact . Psychiatric: Cooperative, appropriate mood and affect . SURGICAL RISKS Pulmonary Risks Shortness of breath of unknown etiology Pulmonary Plan Patient is followed by Dr. George Benitez; will continue Breo and Spiriva perioperatively and encourage incentive spirometer postop Anesthesia Risks wakes up during surgery; has had problems with anesthesia in the past Assessment/Plan 1.?Osteoarthritis Plan for right total hip arthroplasty.? Hold diclofenac 1 week prior to surgery; hold aspirin 3 days prior to surgery 2.?Anxiety and depression Continue Effexor perioperatively 3.?Diabetes Will hold metformin 24 hours prior to surgery; plan for fingerstick glucose and?sliding scale insulin postoperatively 4.?Diarrhea Patient has chronic diarrhea; will continue Bentyl?perioperatively?and WelChol?and monitor for problems postop 5.?HTN (hypertension) We will hold telmisartan/hydrochlorothiazide the morning of surgery and resume postoperatively if needed. ?Continue Bystolic perioperatively 6.?Restless legs syndrome Continue Restoril and Requip perioperatively; monitor for problems postop 7. ?Shortness of breath of unknown etiology ??? Patient is followed by Dr. George Benitez;?continue Breo and Spiriva perioperatively; encourage incentive spirometer postop and monitor for any problems 8. ?Lymphedema ??? Patient will continue to wear a lymphedema compression?on her arms; we will monitor for any problems postoperatively 9. ?History of breast cancer ??? Patient is 1 year out from last treatment;?will plan for?Lovenox?or Eliquis at discharge ? Medications Inpatient No active inpatient medications Home [...] release, 150 mg, 1 cap, Oral, Daily furosemide 40 mg oral tablet, 40 mg, 1 tab, Oral, Daily, PRN HYDROcodone-acetaminophen 5 mg-325 mg oral tablet, 1 tab, Oral, every 6 hr, PRN Hydromet 5 mg-1.5 mg/5 mL oral [...] capsule, 30 mg, 1 cap, Oral, HS rOPINIRole 2 mg oral tablet, 2 mg, 1 tab, Oral, HS Spiriva, 18 mcg, Inhale, Daily telmisartan-hydrochlorothiazide 80 mg-25 mg oral tablet, 1 tab, Oral, Daily venlafaxine 75 mg oral capsule, extended release, 75 mg, 1 cap, Oral, Daily Vitamin C, Oral, Daily Allergies Macrobid?(Rash) Adhesive Bandage?(Erythema) Compazine?(Anaphylaxis) vancomycin?(Acute renal failure) Procedure/Surgical History Blepharoplasty of both eyelids, Brachioplasty, Brow lift, CE - Cataract extraction, Cholecystectomy, Colonoscopy, Excision, Facelift surgery, Hysterectomy, Incision AND drainage, Liposuction, Mastectomy with excision of regional lymph nodes, ORIF - Open reduction and internal fixation of fracture, Simple mastectomy of left breast. Family History DM (mother); Breast cancer (mother); HTN (father); Arthritis (mother, father) Social History Alcohol Current, Beer, Wine, 1-2 times per month Home/Environment Injuries/Abuse/Neglect in household: No. Feels unsafe at home: No. Safe place to go: Yes. Agency(s)/Others notified: No. Jehovah'S Witness restrictions/concerns: None. Lives with Alone. Marital Status of Patient if Patient Independent Adult: . Nutrition/Health Diet: Regular. Substance Use Never Tobacco Never (less than 100 in lifetime) Tobacco Use. plans to go home with home health Problem List/Past Medical History Anxiety and depression Diabetes Diarrhea HTN (hypertension) Osteoarthritis Preoperative state Restless legs syndrome Historical No historical problems Lab Results (Last 24 Hours) WBC: 8 k/uL (05/31/19 12:18:00) RBC: 4.78 M/uL (05/31/19 12:18:00) Hgb: 13.3 g/dL (05/31/19 12:18:00) Hct: 43.9 % (05/31/19 12:18:00) MCV: 91.8 fL (05/31/19 12:18:00) MCH: 27.8 pg (05/31/19 12:18:00) MCHC:? 30.3 g/dL? Low (05/31/19 12:18:00) Platelets: 258 k/uL (05/31/19 12:18:00) RDW-SD:? 48.9 fL? High (05/31/19 12:18:00) MPV: 10.6 fL (05/31/19 12:18:00) Neutro Auto: 65 % (05/31/19 12:18:00) Lymph Auto: 27 % (05/31/19 12:18:00) Dundy Auto: 6 % (05/31/19 12:18:00) Eos Auto: 1 % (05/31/19 12:18:00) Baso Auto: 0 % (05/31/19 12:18:00) Imm Gran Auto: 0 % (05/31/19 12:18:00) Neutro Abs: 5.2 k/uL (05/31/19 12:18:00) Lymph Abs: 2.1 k/uL (05/31/19 12:18:00) Dundy Abs: 0.5 k/uL (05/31/19 12:18:00) Eos Abs: 0.1 k/uL (05/31/19 12:18:00) Baso Abs: 0 k/uL (05/31/19 12:18:00) Imm Gran Abs: 0 k/uL (05/31/19 12:18:00) PT: 13.2 seconds (05/31/19 12:18:00) INR: 0.98 (05/31/19 12:18:00) PTT: 26.3 seconds (05/31/19 12:18:00) UA Color: Light Yellow (05/31/19 12:15:00) UA Appear: CLEAR (05/31/19 12:15:00) UA Glucose: Neg (05/31/19 12:15:00) UA Bili: Neg (05/31/19 12:15:00) UA Ketones: Neg (05/31/19 12:15:00) UA Spec Grav: 1.013 (05/31/19 12:15:00) UA Blood: Neg (05/31/19 12:15:00) UA pH: 8 (05/31/19 12:15:00) UA Protein: Neg (05/31/19 12:15:00) UA Urobilinogen: 0.2 (05/31/19 12:15:00) UA Nitrite: Neg (05/31/19 12:15:00) UA Leuk Est: Neg (05/31/19 12:15:00) Glu Lvl:? 126 mg/dL? High (05/31/19 12:18:00) BUN Lvl: 16 mg/dL (05/31/19 12:18:00) Creatinine Lvl: 0.7 mg/dL (05/31/19 12:18:00) BUN/Creat: 22.9 ratio (05/31/19 12:18:00) eGFR AA: >60 (05/31/19 12:18:00) eGFR Non-AA: >60 (05/31/19 12:18:00) Na Lvl: 141 mmol/L (05/31/19 12:18:00) K Lvl: 4.2 mmol/L (05/31/19 12:18:00) Chloride Lvl:? 96 mmol/L? Low (05/31/19 12:18:00) CO2 Lvl: 30 mmol/L (05/31/19 12:18:00) AGAP: 19 mmol/L (05/31/19 12:18:00) Calcium Lvl: 10 mg/dL (05/31/19 12:18:00) Protein Total: 7.2 g/dL (05/31/19 12:18:00) Albumin Lvl: 4.5 g/dL (05/31/19 12:18:00) Globulin Lvl: 2.7 g/dL (05/31/19 12:18:00) A/G Ratio: 1.7 ratio (05/31/19 12:18:00) Bili Total: 0.5 mg/dL (05/31/19 12:18:00) AST (SGOT): 32 unit/L (05/31/19 12:18:00) ALT (SGPT): 35 unit/L (05/31/19 12:18:00) Alk Phos: 103 unit/L (05/31/19 12:18:00) ABO/Rh Type: A POS (05/31/19 12:18:00) Blood Bank ID: n/a (05/31/19 12:18:00) Antibody Screen: Negative ABSC (05/31/19 12:18:00) Diagnostic Results (Last 24 Hours) No qualifying data available. Signature Line Electronically Signed on 06/01/19 08:48 AM BJORN Clifton, Enid Zambrano Electronically Signed on 06/01/19 11:30 AM Julian SILVA, Jeimy Goodwin documented in this encounter Miscellaneous Notes Op Note - Jeimy Christensen MD - 06/14/2019 9:51 AM CST [place], [place] [facility] REPORT NAME#: BOGDAN GARNETT MR#: [id number] ATTENDING#: Buddy Lancaster DICTATING#: Jeimy Christensen M.D. Room#: 6S ADMIT DATE#: 06/14/2019 DISCHARGE DATE#: : 1955 AGE: 64 SEX: F DATE OF SURGERY: 06/14/2019 SURGEON: JEIMY CHRISTENSEN M.D. PREOPERATIVE DIAGNOSIS: Osteoarthritis, right hip. POSTOPERATIVE DIAGNOSIS: Osteoarthritis, right hip. PROCEDURE PERFORMED: Right total hip arthroplasty. COLOR DIPPER: Fabiana Grigsby N.P. ESTIMATED BLOOD LOSS: 300 mL. COMPLICATIONS: None. ANESTHESIA: General with iliofascial block. BLOOD LOSS: 300 mL. IMPLANTS: [employer] [place] acetabular shell size 54 with a 36 mm neutral liner, size 36, +1.5 ceramic head ball and size 6 high offset [place] stem. COUNTS: All counts correct upon completion of the case. OPERATION IN DETAIL: Ms. Garnett is a 64-year-old female who has failed conservative management of her hip osteoarthritis. She desired to undergo hip arthroplasty after understanding risks, benefits, and alternatives. She underwent medical evaluation prior to surgery and presented for the aforementioned procedure. After review of consent and having no further questions, right hip was marked. She was taken the holding area to the operative suite, where she was transferred to the operative table. Anesthesia was administered. Right lower extremity prepped and draped in standard sterile orthopedic fashion. A time-out was taken to the appropriate patient, appropriate lower extremity, confirmed preoperative antibiotics had been delivered. Upon confirmation, attention was turned to the right hip. An incision made about the posterior third of the greater trochanter, carried through skin and subcutaneous tissue to the level of deep fascia. Deep fascia incised. Iliotibial band retracted anteriorly. Gluteus max fascia retracted posteriorly allowing visualization of the greater trochanteric bursa, which was taken down with electrocautery. Cobra retractor was placed under the gluteus medius. Piriformis released from posterior aspect of the femur tagged with #1 Vicryl. Short external rotators also released from posterior aspect of the femur. Posterior capsule released from the posterior aspect of the femur tagged with a #1 Vicryl. Hip was dislocated. Neck cut marked and made according to preoperative template. After resection of the femoral neck and removal of the head, anterior retractor was placed over the anterior wall of the acetabulum. Contents of cotyloid fossa and labral remnants were excised. Acetabulum sequentially reamed to a 53. A 53 shell found good stability. A 54 cup found excellent stability. A trial liner was placed in the shell. Attention was turned to the proximal femur. The femoral neck was elevated. Box osteotome was used to gain entrance to the femoral canal, was sequentially reamed and broached to a size 6. Size 6 high offset stem was trialed demonstrating appropriate yazidism of leg length and offset and good stability in the position of sleep and 90 degrees of flexion and 70 degrees of internal rotation. After copious irrigation, removal of all trials. The implant liner was malleted into the acetabular shell, checked for secure fit. Attention was turned into the femur. The femoral component was malleted into the femoral shaft. Again finding, no evidence of iatrogenic injury. The head ball onto the trunnion and the hip reduced to the acetabulum. The posterior capsule repaired to the posterior aspect of the femur through bone tunnels using #5 Ethibond. Short external rotators were repaired using #1 Vicryl. Piriformis reattached to gluteus medius tendon using #5 Ethibond. The sciatic nerve was palpated and under no excess tension. Deep fascia was approximated with #2 barbed suture, reinforced with #1 Vicryl. Fat layer approximated with #1 Vicryl. Subcu layer approximated with 2-0 Vicryl. Skin closed with a running 3-0 Monocryl. Steri-Strips applied wound followed by Mepilex dressing. Patient was awoken from anesthesia, transferred from the operative table to stretcher, returned to recovery in stable condition. All counts correct. JEIMY CHRISTENSEN M.D. JOB#: [id number] Line Electronically Signed on 06/21/19 02:35 PM Jeimy Christensen MD documented in this encounter Plan of Treatment Upcoming Encounters Date Type Specialty Care Team Description 04/22/2022 Office Visit Family Medicine Anablele Yost MD [address] [place] [address] [place], [phone] (Wo rk) documented as of this encounter Visit Diagnoses Not on filedocumented in this encounter
--- OUTSIDE RECORDS SUMMARY | 2022-02-01 20:27 | XMS_ITS | Encounter Summary ---
:1955 Author Organization [facility] and Its Subsidiaries and Affiliates Address [address] [address] [place] [address] Care Team Providers Name Role Phone Unavailable Primary Care Provider Unavailable Encounter Details Date Type Department Care Team Description 01/28/2021 [facility] Floyd Madden MD [facility] - MED SURG [address] [place] [address] [place] [address] Social History Tobacco Use Types Packs/Day Years Used Date Smoking Tobacco: Never Assessed Sex Assigned at Date Recorded Not on file documented as of this encounter Discharge Summaries Enid Galindo NP - 01/29/2021 10:22 AM CDT Discharge Diagnoses 1.?Tear of right rotator cuff 2.?Osteoarthritis 3.?Anemia 4.?Anxiety and depression 5.?Apnea, sleep 6.?Chronic cough 7.?Diabetes mellitus 8.?HTN (hypertension) 9.?Lymphedema 10.?Morbid obesity 11.?Personal history of breast cancer 12.?Restless legs syndrome Procedures/Treatment Arthroplasty Reverse Total Shoulder, RIGHT REVERSE TOTAL SHOULDER ARTHROPLASTY Hospital Course (significant findings) Ms Doran is a 65-year-old female with predominant complaints of right shoulder pain. ?She had had pain at night, pain at rest, pain with activity. ?She had tried and failed conservative measures and is reached the point for surgical intervention.? She was admitted on January 28, 2021 to undergo right reverse total shoulder arthroplasty by Dr. Floyd Caal. ?She tolerated the procedure well?and was moved to the floor postoperatively.? She is continued to improve and is felt to be stable to be discharged home today.? She will be discharged on Lovenox 40 mg 1 injection subcu daily x14 days?to be followed by Ecotrin 81 mg daily. ?She is given?Percocet 10/325 mg 1 tablet every 6 hours as needed for pain.? She has a Zipline wound closure device will remain in place until her follow-up appointment.? She will follow-up in clinic in 2 weeks. ?She is instructed to call the office prior to that appointment for any further problems or complaints. Discharge Medications Home Acidophilus Probiotic Blend, 1 cap, Oral, Daily amoxicillin 500 mg oral capsule, See Instructions aspirin 81 mg oral delayed release tablet, 81 mg, 1 tab, Oral, Daily Azo-Cranberry, 2 cap, Oral, HS Benadryl 25 mg oral tablet, 50 mg, 2 tab, Oral, TID, PRN Bentyl 10 mg oral capsule, 10 mg, 1 cap, Oral, TID, PRN biotin, 5 mg, Oral, Daily Breo Ellipta 200 mcg-25 mcg/inh inhalation powder, 1 puffs, Inhale, Daily Caltrate 600 + D oral tablet, 1 tab, Oral, BID carvedilol 12.5 mg oral tablet, 12.5 mg, 1 tab, Oral, BID(CC) Effexor XR 150 mg oral capsule, extended release, 150 mg, 1 cap, Oral, Daily Flexeril 10 mg oral tablet, 10 mg, 1 tab, Oral, every 6 hr, PRN furosemide 40 mg oral tablet, 40 mg, 1 tab, Oral, Daily gabapentin 300 mg oral capsule, 300 mg, 1 cap, Oral, BID Keto GT (OTC supplement) Mg/Na/Ca, 1 cap, Oral, Daily Lovenox 40 mg/0.4 mL injectable solution, 40 mg, 0.4 mL, Subcutaneous, Daily metFORMIN 500 mg oral tablet, 500 mg, 1 tab, Oral, With Breakfast (CB) Micardis HCT 80 mg-25 mg oral tablet, 1 tab, Oral, Daily multivitamin adult, oral tablet, 1 tab, Oral, Daily Ozempic (1 mg dose) 4 mg/3 mL subcutaneous solution, 1 mg, Subcutaneous, Wednesday Percocet 10 mg-325 mg oral tablet, 1 tab, Oral, every 6 hr, PRN Potassium Chloride (Lzy-Ptmz-Psj M20) 20 mEq oral tablet, extended release, 20 mEq, 1 tab, Oral, Daily Remeron 30 mg oral tablet, 30 mg, 1 tab, Oral, HS Restoril 30 mg oral capsule, 30 mg, 1 cap, Oral, HS, PRN rOPINIRole 2 mg oral tablet, 2 mg, 1 tab, Oral, BID Turmeric Supplement, 3 cap, Oral, Daily Vitamin C 1000 mg oral tablet, 1000 mg, 1 tab, Oral, Daily Welchol 625 mg oral tablet, 1250 mg, 2 tab, Oral, Daily Condition on Discharge Stable Follow Up Appointments Dr. Floyd Caal in 2 weeks Discharge Instructions Follow up - Ordered? ?-- 01/29/21 10:21:00 CDT, 2 weeks Signature Line Electronically Signed on 01/29/21 10:23 AM Mateo ARGUELLES,BJORN JUÁREZ, Enid Zambrano Electronically Signed on 02/14/21 10:45 AM Floyd Caal MD documented in this encounter H&P Notes Enid Galindo NP - 01/28/2021 8:58 AM CDT H&P Update I have reviewed the H&P and examined the patient: I find that there are no changes to the patients condition, medications, or treatment plan since the original H&P was completed. Physical Exam No changes to patients status. Assessment/Plan Indications for previously documented treatment plan remains appropriate. Medications No changes in patients medications. Home Medications (29) Active Acidophilus Probiotic Blend?1 cap, Oral, Daily amoxicillin 500 mg oral capsule?See Instructions aspirin 81 mg oral delayed release tablet?81 mg = 1 tab, Oral, Daily Azo-Cranberry?2 cap, Oral, HS Benadryl 25 mg oral tablet?50 mg = 2 tab, PRN, Oral, TID Bentyl 10 mg oral capsule?10 mg = 1 cap, PRN, Oral, TID biotin?5 mg, Oral, Daily Breo Ellipta 200 mcg-25 mcg/inh inhalation powder?1 puffs, Inhale, Daily Caltrate 600 + D oral tablet?1 tab, Oral, BID carvedilol 12.5 mg oral tablet?12.5 mg = 1 tab, Oral, BID(CC) Effexor XR 150 mg oral capsule, extended release?150 mg = 1 cap, Oral, Daily Flexeril 10 mg oral tablet?10 mg = 1 tab, PRN, Oral, every 6 hr furosemide 40 mg oral tablet?40 mg = 1 tab, Oral, Daily gabapentin 300 mg oral capsule?300 mg = 1 cap, Oral, BID HYDROcodone-acetaminophen 5 mg-325 mg oral tablet?1 tab, PRN, Oral, every 6 hr Hydromet 5 mg-1.5 mg/5 mL oral syrup?5 mL, PRN, Oral, every 4 hr Keto GT (OTC supplement) Mg/Na/Ca?1 cap, Oral, Daily metFORMIN 500 mg oral tablet?500 mg = 1 tab, Oral, With Breakfast (CB) Micardis HCT 80 mg-25 mg oral tablet?1 tab, Oral, Daily multivitamin adult, oral tablet?1 tab, Oral, Daily Ozempic (1 mg dose) 4 mg/3 mL subcutaneous solution?1 mg, Subcutaneous, Wednesday Potassium Chloride (Rcm-Ubhj-Ujh M20) 20 mEq oral tablet, extended release?20 mEq = 1 tab, Oral, Daily Remeron 30 mg oral tablet?30 mg = 1 tab, Oral, every day at bedtime Restoril 30 mg oral capsule?30 mg = 1 cap, PRN, Oral, HS rOPINIRole 2 mg oral tablet?2 mg = 1 tab, Oral, BID Turmeric Supplement?3 cap, Oral, Daily Vitamin C 1000 mg oral tablet?1,000 mg = 1 tab, Oral, Daily Voltaren 75 mg oral enteric coated tablet?75 mg = 1 tab, Oral, BID Welchol 625 mg oral tablet?1,250 mg = 2 tab, Oral, Daily Procedure/Surgical History Removal of Synthetic Substitute from [...] Open reduction and internal fixation of fracture, Revision of total hip arthroplasty, Simple mastectomy of left breast. Signature Line Electronically Signed on 01/28/21 08:58 AM Mateo ARGUELLES,BJORN BC, Enid Zambrano Electronically Signed on 02/14/21 10:45 AM Afua SILVA, Floyd Barboza Enid Galindo NP - 01/28/2021 8:53 AM CDT Primary Care Physician Dr Anabelle Yost - PCP Dr George [...] prior to her?right reverse total shoulder arthroplasty. [2] Review of Systems Constitutional:?No fevers, chills, sweats Eye:?No recent visual problems ENMT:?No ear pain, nasal congestion, sore throat Respiratory:? Occasional shortness of breath and chronic cough Cardiovascular:?No Chest pain, palpitations, syncope Gastrointestinal:?No nausea, vomiting, diarrhea Genitourinary:?No hematuria Seng/Lymph:?Negative for bruising tendency, swollen lymph glands Endocrine:?Negative for excessive thirst, excessive hunger Musculoskeletal:? Positive for decreased range of motion, joint pain, muscle pain Integumentary:?No rash, pruritus, abrasions Neurologic:?Alert & oriented X 4 Psychiatric:? Positive for anxiety and depression Physical Exam Vitals & Measurements T:? 37.0? ?C ?(Oral)? HR:? 73?(Monitored)? RR:? 14? BP:? 107 / 55 ? SpO2:? 95%? WT:? 151.9?kg?(Dosing)? General:?Alert and oriented, no acute distress. Eye:?PERRL, [...] II-XII intact. Psychiatric:?Cooperative, appropriate mood and affect.? Assessment/Plan 1.?Osteoarthritis ?Plan for right reverse total shoulder arthroplasty; hold aspirin 3 days prior to surgery. ?Hold diclofenac?7 days prior to surgery 2.?Acute on chronic diastolic heart failure ?Hold furosemide?the morning of surgery; monitor for problems 3.?Anemia ?Monitor H&H postoperatively; continue ferrous sulfate perioperatively 4.?Anxiety and depression ?Continue Effexor perioperatively 5.?Diabetes mellitus ?Hold metformin 24 hours prior to surgery 6.?HTN (hypertension) ?Hold telmisartan/hydrochlorothiazide the morning of surgery resume postoperatively if needed 7.?Lymphedema ?Monitor for problems postop 8.?Morbid obesity 9.?Restless legs syndrome ?Continue Restoril and Requip perioperatively 10.?Preoperative state [3] Problem List/Past Medical History Acute on chronic [...] Open reduction and internal fixation of fracture, Revision of total hip arthroplasty, Simple mastectomy of left breast. Medications Inpatient Ancef lactated ringers injection 1,000 mL, 1000 mL, IV Home Acidophilus Probiotic Blend, 1 cap, Oral, Daily amoxicillin 500 mg oral capsule, See Instructions aspirin 81 mg oral delayed release tablet, 81 mg, 1 tab, Oral, Daily Azo-Cranberry, 2 cap, Oral, HS Benadryl 25 mg oral tablet, 50 mg, 2 tab, Oral, TID, PRN Bentyl 10 mg oral capsule, 10 mg, 1 cap, Oral, TID, PRN biotin, 5 mg, Oral, Daily Breo Ellipta 200 mcg-25 mcg/inh inhalation powder, 1 puffs, Inhale, Daily Caltrate 600 + D oral tablet, 1 tab, Oral, BID carvedilol 12.5 mg oral tablet, 12.5 mg, 1 tab, Oral, BID(CC) Effexor XR 150 mg oral capsule, extended release, 150 mg, 1 cap, Oral, Daily Flexeril 10 mg oral tablet, 10 mg, 1 tab, Oral, every 6 hr, PRN furosemide 40 mg oral tablet, 40 mg, 1 tab, Oral, Daily gabapentin 300 mg oral capsule, 300 mg, 1 cap, Oral, BID HYDROcodone-acetaminophen 5 mg-325 mg oral tablet, 1 tab, Oral, every 6 hr, PRN Hydromet 5 mg-1.5 mg/5 mL oral syrup, 5 mL, Oral, every 4 hr, PRN Keto GT (OTC supplement) Mg/Na/Ca, 1 cap, Oral, Daily metFORMIN 500 mg oral tablet, 500 mg, 1 tab, Oral, With Breakfast (CB) Micardis HCT 80 mg-25 mg oral tablet, 1 tab, Oral, Daily multivitamin adult, oral tablet, 1 tab, Oral, Daily Ozempic (1 mg dose) 4 mg/3 mL subcutaneous solution, 1 mg, Subcutaneous, Wednesday Potassium Chloride (Jbn-Iorj-Ohb M20) 20 mEq oral tablet, extended release, 20 mEq, 1 tab, Oral, Daily Remeron 30 mg oral tablet, 30 mg, 1 tab, Oral, HS Restoril 30 mg oral capsule, 30 mg, 1 cap, Oral, HS, PRN rOPINIRole 2 mg oral tablet, 2 mg, 1 tab, Oral, BID Turmeric Supplement, 3 cap, Oral, Daily Vitamin C 1000 mg oral tablet, 1000 mg, 1 tab, Oral, Daily Voltaren 75 mg oral enteric coated tablet, 75 mg, 1 tab, Oral, BID Welchol 625 mg oral tablet, 1250 mg, 2 tab, Oral, Daily Allergies Macrobid?(Rash) Adhesive Bandage?(Erythema) Compazine?(Anaphylaxis) vancomycin?(Acute renal failure) Social History Alcohol Current, Beer, Wine, Occasional Use Home/Environment Injuries/Abuse/Neglect in household: No. Feels unsafe at home: No. Safe place to go: Yes. Agency(s)/Others notified: No. [employer] restrictions/concerns: None. Lives with Alone. Marital Status of Patient if Patient Independent Adult: . Nutrition/Health Diet: Regular. Substance Use Never Tobacco Never (less than 100 in lifetime) Tobacco Use. Family History DM (mother); Breast cancer (mother); HTN (father); Arthritis (mother, father) [2] [4] Lab Results (Last 24 Hours) POC Bld Glu Lvl:? 150 mg/dL? High (01/28/21 05:58:00) Diagnostic Results No qualifying data available. [1]? Preoperative History & Physical; BJORN Clifton Anne Roberson 12/10/2020 11:27 CDT [2]? Preoperative History & Physical; BJORN Clifton Anne Roberson 12/10/2020 11:27 CDT [3]? Preoperative History & Physical; BJORN Clifton Anne Roberson 12/10/2020 11:27 CDT [4]? Preoperative History & Physical; BJORN Clifton Anne Roberson 12/10/2020 11:27 CDT Signature Line Electronically Signed on 01/28/21 08:57 AM BJORN Clifton Anne Roberson Electronically Signed on 02/14/21 10:45 AM Floyd Caal MD documented in this encounter Miscellaneous Notes Op Note - Floyd Caal MD - 01/28/2021 9:55 AM CDT Date of Procedure ? 01/28/21 Surgeon(s) Floyd Caal MD (Surgeon Primary) Stogy Maker MILTON Rodriguez, ROGELIO Preoperative Diagnosis Right shoulder rotator cuff tear arthropathy Postoperative Diagnosis The same Operative Procedure RIGHT REVERSE TOTAL SHOULDER ARTHROPLASTY Indication Please refer to the H&P. Findings Rotator cuff tear arthropathy Procedure in Detail The patient was taken to the operating room and placed in supine position, after adequate inductionof general anesthesia,?the patient was placed in a beachchair position with adequate padding for allbony prominences.? The right upper extremity and shoulder area were sterilely prepped and draped in the usual orthopedic fashion. ?The patient received prophylactic antibiotics prior to skin incision. ? An anterior incision was then made?for a?deltopectoral approach. ?Dissection was carried down through the skin and subcutaneous tissue. ?The?deltopectoral fascia was incised in line with the interval.?The cephalic vein was traced?both proximally and distally and mobilized medially.? Blunt dissectionwas carried down to the clavipectoral fascia?which was incised?lateral to the conjoined tendon.? There was a?complete tear of her rotator cuff involving the subscapularis, supraspinatus and infraspinatus.? The tendons of the torn?tendons were?retracted?significantly.? The capsule was then taken down and the proximal humerus was exposed.? The humeral head was dislocated into the wound and a humeral head osteotomy was then performed?pain attention to appropriate version.? The humeral canal was then broached?and a 12 mm broach trial was then placed?to protect the?proximal cut.? The humerus was then retracted posterior to the glenoid. ?The glenoid was cleaned of soft tissue. ?The labrum was debrided circumferentially?as well as the capsule released around the glenoid.? A guidepin was then placed in the central/inferior?portion of the?glenoid face. ?It was used to?ream the glenoid face down to subchondral bleeding bone.? The guidepin was also used to place the hole for the?central peg of the prosthesis.? The baseplate was then placed on the?glenoid and secured in place with multiple?screws.? The metaglene was also placed on the baseplate?and secured in place. ? Final preparation of the proximal humerus was then performed.? Trial reduction was performed?and after?adequate soft tissue balance was achieved?the trials were then replaced with the final humeral components. ?Shoulder was reduced?and noted to have excellent soft tissue balance throughout a functional range of motion.? Throughout the procedure, the wound was irrigated intermittently with hydrogen peroxide and?pulsatile lavage.? The deltopectoral fascia was then reapproximated using multiple interrupted #1 Vicryl sutures. ?The subcutaneous tissues closed with interrupted?#1 Vicryl and 2-0 Vicryl sutures. ?The skin was closed using a Zipline wound closure device. ?Sterile dressings were applied. ? ? Drains None Complications None Type of Anesthesia General [place] , Mor Howard (Anesthesiologist) Estimated Blood Loss Approximately 108 cc Condition Stable Specimen(s) None Implants [employer]??Titan tight?reverse total shoulder arthroplasty system.? Size 12?press-fit humeral stem?with a +9 standard?liner.? Standard glenoid baseplate with a concentric?+5 mm glenosphere. Signature Line Electronically Signed on 01/28/21 10:02 AM Afua SILVA, Floyd Barboza documented in this encounter Plan of Treatment Upcoming Encounters Date Type Specialty Care Team Description 04/22/2022 Office Visit Family Medicine Anabelle Yost MD [facility] [place] [address] [place] [address] (Wo rk) documented as of this encounter Visit Diagnoses Not on filedocumented in this encounter
--- OUTSIDE RECORDS SUMMARY | 2022-02-01 20:27 | XMS_ITS | Encounter Summary ---
:1955 Author Organization [facility] and Its Subsidiaries and Affiliates Address [address] [address] [place] [address] Care Team Providers Name Role Phone Anabelle Yost MD Primary Care Provider Encounter Details Date Type Department Care Team Description 08/10/2021 Procedure Pass [facility] - DEXA IMAGING [address] [facility] [address] [place] [phone] Social History Tobacco Use Types Packs/Day Years [...] Office Visit Family Medicine Anabelle Yost MD [facility] [facility] [address] [place] [address] (Wo rk) documented as of this encounter Visit Diagnoses Not on filedocumented in this encounter Additional Health Concerns Infection Onset Date Last Indicated Resolved Time COVID-19 Rule out 11/09/2021 11/09/2021 12/07/2021 10: 37 PM CDT COVID-19 Confirmed 11/09/2021 11/09/2021 12/07/2021 10 :37 PM CDT documented as of this encounter Care Teams Utility Hand Relationship Specialty Start Date End Date Anabelle Yost MD PCP - General Family Medicine 10/03/[address] [place] [address] [address] [facility] [place], [id number] documented as of this encounter
--- OUTSIDE RECORDS SUMMARY | 2022-02-01 20:27 | XMS_ITS | Encounter Summary ---
:1955 Author Organization [facility] and Its Subsidiaries and Affiliates Address [address] [address] [place] [address] Care Team Providers Name Role Phone Unavailable Primary Care Provider Unavailable Encounter Details Date Type Department Care Team Description 05/20/2021 [facility] Floyd Madden MD [facility] - MED SURG ORTHO [address] [place] [address] [place] [address] [place] [address] Social History Tobacco Use Types Packs/Day Years Used Date Smoking Tobacco: Never Assessed Sex Assigned at Date Recorded Not on file documented as of this encounter Discharge Summaries Enid Galindo NP - 05/21/2021 10:50 AM CST Discharge Diagnoses osteoarthritis Procedures/Treatment Arthroplasty Reverse Total Shoulder, RIGHT REVISION REVERSE TOTAL SHOULDER ARTHROPLASTY, Right, Revision Hospital Course (significant findings) Ms Doran is a 66-year-old female with predominant complaints of right shoulder pain. ?She had had pain at night, pain at rest, and pain with activity. ?She had tried and failed conservative measures and was felt to need to undergo surgical?revision. ?She is admitted on May 20, 2021 to undergo revision of her right total?reverse shoulder arthroplasty by Dr. Floyd Caal. ?She tolerated the procedure well?has been to the floor postoperatively. ?She is continue to improve and is felt to be stable to be discharged home today.? She will be discharged on Percocet 10/325 mg 1 tablet every 6 hours as needed for pain.? She will keep her Mepilex dressing in place until her follow-up appointment.? Beulah continue home health.? She will follow-up in clinic in 2 weeks. ?She is instructed to call Dr. Juarez office prior to that appointment for any [...] oral tablet, 1 tab, Oral, BID carvedilol 25 mg oral tablet, 25 mg, 1 tab, Oral, BID Effexor XR 150 mg oral capsule, extended release, 150 mg, 1 cap, Oral, Daily Flexeril 10 mg oral tablet, 10 mg, 1 tab, Oral, every 6 hr, PRN furosemide 40 mg oral tablet, 40 mg, 1 tab, Oral, Daily Keto GT (OTC supplement) Mg/Na/Ca, 1 cap, Oral, Daily metFORMIN 500 mg oral tablet, 500 mg, 1 tab, Oral, BID Micardis HCT 80 mg-25 mg oral tablet, 1 tab, Oral, Daily multivitamin adult, oral tablet, 1 tab, Oral, Daily Ozempic (1 mg dose) 4 mg/3 mL subcutaneous solution, 4 mg, Subcutaneous, Wednesday Percocet 10 mg-325 mg oral tablet, 1 tab, Oral, every 6 hr, PRN Potassium Chloride (Wsq-Dznb-Myf M20) 20 mEq oral tablet, extended release, 20 mEq, 1 tab, Oral, Daily Restoril 30 mg oral capsule, 30 mg, 1 cap, Oral, HS, PRN rOPINIRole 2 mg oral tablet, 2 mg, 1 tab, Oral, BID Turmeric Supplement, 3 cap, Oral, Daily Vitamin C 1000 mg oral tablet, 1000 mg, 1 tab, Oral, Daily Welchol 625 mg oral tablet, 1250 mg, 2 tab, Oral, Daily Condition on Discharge Stable Follow Up Appointments Afua SILVA, Floyd Barboza, Surgery on 06/06/21 11:15 ?? ? Comment:? Follow-up appointment ? Discharge Instructions Follow up - Ordered? ?-- 05/21/21 10:43:00 CROZER OPERATOR, 2 weeks Signature Line Electronically Signed on 05/21/21 10:51 AM Mateo ARGUELLES,BJORN JUÁREZ, Enid Zambrano Electronically Signed on 05/21/21 02:53 PM Afua SILVA, Floyd Barboza documented in this encounter H&P Notes Enid Galindo NP - 05/21/2021 10:49 AM CST H&P Update I have reviewed the H&P and examined the patient: I find that there are no changes to the patients condition, medications, or treatment plan since the original H&P was completed. Physical Exam No changes to patients status. Assessment/Plan Indications for previously documented treatment plan remains appropriate. Medications No changes in patients medications. Home Medications (23) Active Acidophilus Probiotic Blend?1 cap, Oral, Daily [...] D oral tablet?1 tab, Oral, BID carvedilol 25 mg oral tablet?25 mg = 1 tab, Oral, BID Effexor XR 150 mg oral capsule, extended release?150 mg = 1 cap, Oral, Daily Flexeril 10 mg oral tablet?10 mg = 1 tab, PRN, Oral, every 6 hr furosemide 40 mg oral tablet?40 mg = 1 tab, Oral, Daily Keto GT (OTC supplement) Mg/Na/Ca?1 cap, Oral, Daily metFORMIN 500 mg oral tablet?500 mg = 1 tab, Oral, BID Micardis HCT 80 mg-25 mg oral tablet?1 tab, Oral, Daily multivitamin adult, oral tablet?1 tab, Oral, Daily Ozempic (1 mg dose) 4 mg/3 mL subcutaneous solution?4 mg, Subcutaneous, Wednesday Percocet 10 mg-325 mg oral tablet?1 tab, PRN, Oral, every 6 hr Potassium Chloride (Plc-Kfxm-Avm M20) 20 mEq oral tablet, extended release?20 mEq = 1 tab, Oral, Daily Restoril 30 mg oral capsule?30 mg = 1 cap, PRN, Oral, HS rOPINIRole 2 mg oral tablet?2 mg = 1 tab, Oral, BID Turmeric Supplement?3 cap, Oral, Daily Vitamin C 1000 mg oral tablet?1,000 mg = 1 tab, Oral, Daily Welchol 625 mg oral tablet?1,250 mg = 2 tab, Oral, Daily Procedure/Surgical History ARTHROPLASTY GLENOHUMERAL JOINT TOTAL SHOULDER (01/28/2021), Arthroplasty Reverse Total Shoulder (01/28/2021), Removal of Synthetic Substitute from Right Hip [...] AND drainage, Liposuction, Mastectomy with excision of regionallymph nodes, ORIF - Open reduction and internal fixation of fracture, Revision of total hip arthroplasty, Simple mastectomy of left breast. Signature Line Electronically Signed on 05/21/21 10:50 AM BJORN Clifton, Enid Zambrano Electronically Signed on 05/21/21 02:53 PM Afua SILVA, Floyd Barboza Enid Galindo NP - 05/21/2021 10:43 AM CST Chief Complaint right shoulder pain History of Present Illness Ms Doran is a 66 year old female who underwent a right total shoulder arthroplasty in the past. ?She has had pain and discomfort and is felt to need to undergo revision. ?She has?past medical history to include acute?on chronic diastolic heart failure, anemia, anxiety, depression, diabetes, obesity, h ypertension, lymphedema,?restless leg syndrome, and history of breast cancer.? Risk, benefits, and alternatives to surgery were discussed with the patient by Dr. Caal and she wishes to proceed with surgical intervention. Review of Systems Constitutional:?No fevers, chills, sweats Eye:?No recent visual problems ENMT:?No ear pain, nasal congestion, sore throat Respiratory:?No shortness of breath, cough Cardiovascular:?No Chest pain, palpitations, syncope Gastrointestinal:?No nausea, vomiting, diarrhea Genitourinary:?No hematuria Seng/Lymph:?Negative for bruising tendency, swollen lymph glands Endocrine:?Negative for excessive thirst, excessive hunger Musculoskeletal:?Positive for decreased range of motion, joint pain, muscle pain Integumentary:?No rash, pruritus, abrasions Neurologic:?Alert & oriented X 4 Psychiatric:?No anxiety, depression Physical Exam Vitals & Measurements T:? 36.4? ?C ?(Oral)? HR:? 82?(Monitored)? RR:? 18? BP:? 133 / 74 ? SpO2:? 97%? WT:? 140.61?kg?(Dosing)? General:?Alert and oriented, no acute distress. Eye:?PERRL, EOMI, normal conjunctiva. HENT:?Normocephalic, clear tympanic membranes, normal hearing, moist oral mucosa, no scleral icterus, no sinus tenderness. Neck:?Supple, non-tender, no carotid bruits, no JVD, no lymphadenopathy. Lungs:?Clear to auscultation and percussion, non-labored respiration. Heart:?Normal rate, regular rhythm, no murmur, gallop or edema. Abdomen:?Soft, non-tender, non-distended, normal bowel sounds, no masses. Musculoskeletal:?For decreased range of motion, pain, and tenderness in right shoulder Skin:?Skin is warm, dry and pink, no rashes or lesions. Neurologic:?Awake, alert, and oriented X3, CN II-XII intact. Psychiatric:?Cooperative, appropriate mood and affect.? Assessment/Plan 1. ?Osteoarthritis Plan for revision of right total?shoulder arthroplasty Problem List/Past Medical History Acute on chronic diastolic heart failure Anemia Anxiety and depression Diabetes mellitus Extreme obesity with alveolar hypoventilation HTN (hypertension) Lymphedema Morbid obesity Osteoarthritis Preoperative state Restless legs syndrome Historical No historical problems Procedure/Surgical History ARTHROPLASTY GLENOHUMERAL JOINT TOTAL SHOULDER (01/28/2021), Arthroplasty Reverse Total Shoulder (01/28/2021), Removal of Synthetic Substitute from Right Hip [...] AND drainage, Liposuction, Mastectomy with excision of regionallymph nodes, ORIF - Open reduction and internal fixation of fracture, Revision of total hip arthroplasty, Simple mastectomy of left breast. Medications Inpatient Ancef + sodium chloride 0.9% 50 mL Benadryl, 25 mg, 1 cap, Oral, every 4 hr, PRN dextrose 5% with 0.45% NaCl 1,000 mL, 1000 mL, IV Dilaudid, 1 mg, 1 mL, IV Push, every 3 hr, PRN Ecotrin, 325 mg, 1 tab, Oral, Daily Milk of Magnesia 24% oral concentrate, 10 mL, Oral, Daily, PRN Narcan, 0.4 mg, 1 mL, IV Push, As Directed (see comments), PRN Percocet 10 mg-325 mg oral tablet, 2 tab, Oral, every 6 hr, PRN Senokot S, 2 tab, Oral, HS Urecholine, 25 mg, 1 tab, Oral, TID, PRN Zofran, 4 mg, 2 mL, IV [...] oral tablet, 1 tab, Oral, BID carvedilol 25 mg oral tablet, 25 mg, 1 tab, Oral, BID Effexor XR 150 mg oral capsule, extended release, 150 mg, 1 cap, Oral, Daily Flexeril 10 mg oral tablet, 10 mg, 1 tab, Oral, every 6 hr, PRN furosemide 40 mg oral tablet, 40 mg, 1 tab, Oral, Daily HYDROcodone-acetaminophen 10 mg-325 mg oral tablet, 1 tab, Oral, every 4 hr, PRN Keto GT (OTC supplement) Mg/Na/Ca, 1 cap, Oral, Daily metFORMIN 500 mg oral tablet, 500 mg, 1 tab, Oral, BID Micardis HCT 80 mg-25 mg oral tablet, 1 tab, Oral, Daily multivitamin adult, oral tablet, 1 tab, Oral, Daily Ozempic (1 mg dose) 4 mg/3 mL subcutaneous solution, 4 mg, Subcutaneous, Wednesday Potassium Chloride (Jqq-Ksiu-Ykb M20) 20 mEq oral tablet, extended release, 20 mEq, 1 tab, Oral, Daily Restoril 30 mg [...] place to go: Yes. Agency(s)/Others notified: No. Scientology restrictions/concerns: None. Lives with Alone. Marital Status of Patient if Patient Independent Adult: . Nutrition/Health Diet: Regular. Substance Use Never Tobacco Never (less than 100 in lifetime) Tobacco Use. Lab Results (Last 24 Hours) WBC:? 11.8 k/uL? High (05/21/21 03:59:00) RBC:? 3.97 M/uL? Low (05/21/21 03:59:00) Hgb:? 11.3 g/dL? Low (05/21/21 03:59:00) Hct:? 36.3 %? Low (05/21/21 03:59:00) MCV: 91.4 fL (05/21/21 03:59:00) MCH: 28.5 pg (05/21/21 03:59:00) MCHC: 31.1 g/dL (05/21/21 03:59:00) Platelets: 204 k/uL (05/21/21 03:59:00) RDW-SD:? 49.5 fL? High (05/21/21 03:59:00) MPV: 10.4 fL (05/21/21 03:59:00) Neutro Auto:? 89 %? High (05/21/21 03:59:00) Lymph Auto:? 8 %? Low (05/21/21 03:59:00) [place]on Auto: 3 % (05/21/21 03:59:00) Eos Auto: 0 % (05/21/21 03:59:00) Baso Auto: 0 % (05/21/21 03:59:00) Imm Gran Auto: 0 % (05/21/21 03:59:00) Neutro Abs:? 10.4 k/uL? High (05/21/21 03:59:00) Lymph Abs: 0.9 k/uL (05/21/21 03:59:00) Burleson Abs: 0.4 k/uL (05/21/21 03:59:00) Eos Abs: 0 k/uL (05/21/21 03:59:00) Baso Abs: 0 k/uL (05/21/21 03:59:00) Imm Gran Abs: 0 k/uL (05/21/21 03:59:00) Hgb A1c: 6.4 % (05/20/21 13:40:00) MPG Ca mg/dL (05/20/21 13:40:00) POC Bld Glu Lvl:? 184 mg/dL? High (05/20/21 20:46:00) POC Bld Glu Lvl: 91 mg/dL (05/20/21 14:39:00) Glu Lvl:? 214 mg/dL? High (05/21/21 03:59:00) BUN Lvl: 20 mg/dL (05/21/21 03:59:00) Creatinine Lvl: 0.9 mg/dL (05/21/21 03:59:00) BUN/Creat: 22.2 ratio (05/21/21 03:59:00) eGFR AA: >60 (05/21/21 03:59:00) eGFR Non-AA: >60 (05/21/21 03:59:00) Na Lvl: 136 mmol/L (05/21/21 03:59:00) K Lvl: 3.7 mmol/L (05/21/21 03:59:00) Chloride Lvl: 101 mmol/L (05/21/21 03:59:00) CO2 Lvl: 26 mmol/L (05/21/21 03:59:00) AGAP: 13 mmol/L (05/21/21 03:59:00) Calcium Lvl: 8.5 mg/dL (05/21/21 03:59:00) Diagnostic Results ORX Shoulder 1 V RT ? 05/20/21 15:41:10 IMPRESSION: 1. As above. ? Signer Name: Brien Merritt MD Signed: 05/20/2021 3:43 PM ? ? ? ORX Shoulder 1 V RT PAGE 1 ? Signed By: Brien Merritt MD Signature Line Electronically Signed on 05/21/21 10:45 AM BJORN Clifton, Enid Zambrano Electronically Signed on 05/21/21 02:53 PM Afua SILVA, Floyd Barboza documented in this encounter Miscellaneous Notes Op Note - Floyd Caal MD - 05/20/2021 2:48 PM CST Date of Procedure ? 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 ? Left knee osteoarthritis Postoperative Diagnosis The same Operative Procedure Right total shoulder arthroplasty revision. ? Left knee intra-articular injection. Indication Please refer to the H&P. Findings Displacement of the?glenosphere.? Polyethylene wear. Procedure in Detail The patient was taken to the operating room and placed in the supine position, after adequate induction of general anesthesia, the patient was placed in the beachchair position?with adequate padding of all bony prominences.? The right upper extremity and shoulder area were sterilely prepped and draped in the usual orthopedic fashion. ?The patient received prophylactic antibiotics?skin incision.? Theprevious anterior deltopectoral incision was?then entered. ?Dissection was carried down through the skin and subcutaneous tissue.? The deltopectoral interval was?identified and bluntly dissected down to the?thick?rind?that was present?around the?prosthesis.? This cavity was then entered and a section of the rind was excised.? The glenosphere was identified and removed from the?operative field. ?Therewas significant wear of the?metaphyseal insert. ?The insert was removed from the?humeral component.?The wound was then irrigated with copious amounts of irrigation fluid using?hydrogen peroxide as well as?pulsatile lavage.? The glenoid baseplate was then cleaned?and?the socket for the glenosphere wasdried.? The glenosphere was then placed on the?baseplate?and the Joiner taper was engaged.? There wasabsolutely no motion between?the glenosphere and baseplate after securing the Joiner taper,?which waschecked?multiple times.? The wound again was?irrigated with hydrogen peroxide and pulsatile lavage. Aristra was placed in the wound to help for?postoperative?seroma prevention. ?The deep layers were closed with interrupted 4-0 Vicryl sutures. ?The subcutaneous tissues closed with interrupted 2-0 Vicryl sutures.? The skin was closed using a Zipline wound closure device.? Sterile dressings were applied. ? Attention was turned to the left knee. ?The superior lateral aspect of the left knee was sterilely prepped,?an 18-gauge needle?was placed?in the intra-articular space and used to inject?3 cc of Celestone and 8 cc 1% lidocaine.? The needle was removed, a sterile bandage was applied. ?The patient tolerated the procedure well?there were no apparent complications. ? The patient was taken to the?recovery room?in stable condition. Drains None Complications None Type of Anesthesia General Herbert SILVA, Scott Ramos (Anesthesiologist) Estimated Blood Loss Less than 108 cc Condition Stable Specimen(s) Wound Surgical Culture (right shoulder,Fluid,Shoulder) Anaerobic Culture (right shoulder,Fluid,Shoulder) Implants Titan?eccentric 5 mm glenosphere.? +9?ultracongruent?polyethylene liner. Signature Line Electronically Signed on 05/20/21 02:58 PM Afua SILVA, Floyd Barboza documented in this encounter Plan of Treatment Upcoming Encounters Date Type Specialty Care Team Description 04/22/2022 Office Visit Family Medicine Anabelle Yost MD [address] [facility] [address] [place] [address] (Wo rk) documented as of this encounter Procedures Procedure Name Priority Date/Time Associated Diagnosis Comme nts XR CHEST 1 VIEW Routine 05/19/2021 1:57 PM Result s for this CROZER OPERATOR procedure are i n the results section. documented in this encounter Results XR Chest 1 View (05/19/2021 1:57 PM CROZER OPERATOR) Anatomical Region Laterality Modality Chest Radiographic Imaging Specimen (Source) Anatomical Collection Method Collection Time Re ceived Time Location / / Volume Laterality 05/19/2021 1:57 PM CROZER OPERATOR Narrative 05/19/2021 1:57 PM CROZER OPERATOR ?[facility] ? [place], [place] ?EXAM: XR Chest 1 View AP ?EXAM: ??XR Chest 1 View AP ?EXAM DATE: ??05/19/2021 2:12 PM ?HISTORY: ??66-year-old female, pre op, hypertension ?COMPARISON: Chest radiograph 2020; shoulder radiograph 01/28/2021 ?FINDINGS: ?Frontal view of the chest demonstr ate(s) a normal cardiac silhouette. ?Lungs are clear. No pneumothorax. Malpositioned glenoid component of the ?right total shoulder arthroplasty is identified. Partially visualized ?humeral component is unremarkable. Remaining osseous structures are ?unremarkable. ?IMPRESSION: ?1. No acute cardiopulmonary proces s. ?2. Hardware from the right shoulde r arthroplasty is identified with a ?malpositioned glenoid component. ?Signer Name: Malcom Smith DO ?Signed: 05/19/2021 2:04 PM ?X R Chest 1 View AP ?PAGE 1 Procedure Note RADIOLOGIST/FURS SALESPERSON AT [facility] - 09/06 [place], [place] EXAM: XR Chest 1 View AP EXAM: XR Chest 1 View AP EXAM DATE: 05/19/2021 2:12 PM HISTORY: 66-year-old female, preop, hyp ertension COMPARISON: Chest radiograph 04/07/2021; shoulder radiograph 01/28/2021 FINDINGS: Frontal view of the chest demonstrate(s ) a normal cardiac silhouette. Lungs are clear. No pneumothorax. Malpo sitioned glenoid component of the right total shoulder arthroplasty is id entified. Partially visualized humeral component is unremarkable. Jolanta ining osseous structures are unremarkable. IMPRESSION: 1. No acute cardiopulmonary process. 2. Hardware from the right shoulder art hroplasty is identified with a malpositioned glenoid component. Signer Name: Malcom Smith DO Signed: 05/19/2021 2:04 PM XR Chest 1 View AP PAGE 1 Conversion Ordering Provider IMG DIAGNOSTIC IMAGING OR DERABLES documented in this encounter Visit Diagnoses Not on filedocumented in this encounter
--- OUTSIDE RECORDS SUMMARY | 2022-02-01 20:27 | XMS_ITS | Encounter Summary ---
:1955 Author Organization [facility] and Its Subsidiaries and Affiliates Address [address] [address] [place] [address] Care Team Providers Name Role Phone Anabelle Yost MD Primary Care Provider Encounter Details Date Type Department Care Team Description 10/26/2021 History [facility] Anabelle Whitehead MD [facility] [address] [place], [address] [place] [address] [phone] Social History Tobacco Use Types Packs/Day Years [...] Office Visit Family Medicine Anabelle Yost MD [address] [place] [address] [address] [place] [address] (Wo rk) documented as of this encounter Visit Diagnoses Not on filedocumented in this encounter Care Teams Primary Special Education Teacher Relationship Specialty Start Date End Date Anabelle Yost MD PCP - General Family Medicine 10/03/21 [facility] [address] [place] [address] documented as of this encounter
--- OUTSIDE RECORDS SUMMARY | 2022-02-01 20:27 | XMS_ITS | Encounter Summary ---
:1955 Author Organization [facility] and Its Subsidiaries and Affiliates Address 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, unspecified estrogen receptor status (HCC) Cassie Clemons MD [facility] Procedures XR [facility] [address] [place], [address] [place], [address] Fax: Referral ID Status Reason Start Date Expiration Date Visits V isits Requested Authorized [id number] Pending 08/10/2021 1 1 Review Encounter Details Date Type Department Care Team Description 12/08/2021 Transcribe Orders [facility] Cecilia Clemons neoplasm [facility] - Cassie Tillman MD of [facility] DEXA IMAGING [address] [facility] [address] [facility] [place] female breast, [address] unspecified estrogen [place] receptor status [id number] (HCC) (Primary Dx) [phone] Social History Tobacco Use Types Packs/Day Years [...] Office Visit Family Medicine Anabelle Yost MD [address] [place] [address] [facility] [place] [address] (Wo rk) documented as of this encounter Results XR [facility] (01/19/2022 11:55 AM [...] Signed: 01/19/2022 6:05 PM Cassie Clemons MD IMG DEXA ORDERABLES documented in this encounter Visit Diagnoses Diagnosis Malignant neoplasm of lower-inner quadra nt of right female breast, unspecified estrogen receptor status (HCC) - Primary Malignant neoplasm of lower-inner quadra nt of right female breast, unspecified estrogen receptor status (HCC) documented in this encounter Care Teams Leather Sorter Relationship Specialty Start Date End Date Anabelle Yost MD PCP - General Family Medicine 10/03/[address] [place] [address] [facility] [place] [address] documented as of this encounter
--- OUTSIDE RECORDS SUMMARY | 2022-02-01 20:27 | XMS_ITS | Encounter Summary ---
:1955 Author Organization [facility] Address [address] [address] [place] [address] Care Team Providers Name Role Phone Unavailable Primary Care Provider Unavailable Encounter Details Date Type Department Care Team Description 05/20/2021 Hospital [facility] [place] Cassie Jimenez MD [address] [place] [phone] [address] [place] [address] (Wo rk) Social History Tobacco Use Types Packs/Day Years Used Date Smoking Tobacco: Never Assessed Sex Assigned at Date Recorded Not on file documented as of this encounter Plan of Treatment Upcoming Encounters Date Type Specialty Care Team Description 04/22/2022 Office Visit Family Medicine Anabelle Yost MD [address] [facility] [address] [place] [employer], [address] (Wo rk) documented as of this encounter Procedures Procedure Name Priority Date/Time Associated Diagnosis Comme nts XR SHOULDER 1 VIEW Routine 05/20/2021 2:41 PM Res ults for this RIGHT COREMAKER HELPER procedure are i n the results section. documented in this encounter Results XR Shoulder 1 View Right (05/20/2021 2:41 PM COREMAKER HELPER) Anatomical Region Laterality Modality Shoulder Radiographic Imaging Specimen (Source) Anatomical Collection Method Collection Time Re ceived Time Location / / Volume Laterality 05/20/2021 2:41 PM COREMAKER HELPER Narrative 05/20/2021 2:41 PM COREMAKER HELPER ?[facility] ? [place], [place] ?EXAM: ORX Shoulder 1 V RT ?REASON FOR EXAM: DJD ?COMPARISONS: 01/28/2021 ?TECHNIQUE: Single AP view right sh oulder. ?FINDINGS: Right shoulder replaceme nt appears congruent on this AP view. ?Osteoarthritic changes are seen ac romioclavicular joint. Surgical clips ?are present right axilla. ?IMPRESSION: ?1. As above. ?Signer Name: Brien Merritt MD ?Signed: 05/20/2021 3:43 PM ? ORX Shoulder 1 V RT ?PAGE 1 Procedure Note RADIOLOGIST/ASSISTANT STORE MANAGER SALES AT [facility] - 09/06 [place], [place] EXAM: ORX Shoulder 1 V RT REASON FOR EXAM: DJD COMPARISONS: 01/28/2021 TECHNIQUE: Single AP view right shoulde r. FINDINGS: Right shoulder replacement ap pears congruent on this AP view. Osteoarthritic changes are seen acromio clavicular joint. Surgical clips are present right axilla. IMPRESSION: 1. As above. Signer Name: Brien Merritt MD Signed: 05/20/2021 3:43 PM ORX Shoulder 1 V RT PAGE 1 Conversion Ordering Provider IMG DIAGNOSTIC IMAGING OR DERABLES documented in this encounter Visit Diagnoses Not on filedocumented in this encounter
--- OUTSIDE RECORDS SUMMARY | 2022-02-01 20:27 | XMS_ITS | Encounter Summary ---
:1955 Author Organization [facility] and Its Subsidiaries and Affiliates Address [address] [address] [place] [address] Care Team Providers Name Role Phone Anabelle Yost MD Primary Care Provider Reason for Referral Diagnostic Medical (Routine) - Pending Review Specialty Diagnoses / Procedures Referred By Contact Refer red To Contact Radiology Diagnoses Malignant neoplasm of lower-inner quadrant of right female breast, unspecified estrogen receptor status (HCC) Cassie Clemons MD [facility] Procedures XR [facility] [address] [place], [address] [place], [phone] Fax: Referral ID Status Reason Start Date Expiration Date Visits V isits Requested Authorized [id number] Pending 08/10/2021 1 1 Review Reason for Visit Diagnostic Medical (Routine) - Pending Review Specialty Diagnoses / Procedures Referred By Contact Refer red To Contact Radiology Diagnoses Malignant neoplasm of lower-inner quadrant of right female breast, unspecified estrogen receptor status (HCC) Cassie Clemons MD [facility] Procedures XR [facility] [address] [place] [address] [place], [address] Fax: Referral ID Status Reason Start Date Expiration Date Visits V isits Requested Authorized [id number] Pending 08/10/2021 1 1 Review Encounter Details Date Type Department Care Team Description 01/19/2022 Hospital Encounter Tam Hameed ignant neoplasm [facility] - Cassie Tillman MD of [facility] DEXA IMAGING [address] quadrant of right [address] [place] female breast, [address] unspecified estrogen [place], receptor status [id number] ([facility]) [phone] Social History Tobacco Use Types Packs/Day Years [...] on file documented as of this encounter Medications at Time of Discharge Medication Sig Dispensed Refills Start Date End Date albuterol 2.5 mg /3 mL Take 2.5 mg by 75 mL 12 2 10/20/2022 (0.083 %) nebulizer nebulization 4 (four) solutionIndications: times daily as needed Wheezing for Wheezing. ascorbic acid, vitamin Take 1,000 mg by 0 C, (VITAMIN C) 1000 MG mouth daily. tablet aspirin 81 mg EC Take 81 mg by mouth 0 tablet daily. calcium carbonate-vit Take by mouth 2 (two) 0 D3-min (Calcium 600 + times daily. Minerals) 600 mg calcium- 200 unit Tablet carvediloL (COREG) 25 Take 25 mg by mouth 2 0 mg tablet (two) times daily with meals. colesevelam (WELCHOL) Take 625 mg by mouth. 0 625 mg tablet Take 2 tablets by mouth once a day diclofenac (VOLTAREN) Take 75 mg by mouth 0 75 mg EC tablet in the morning and 75 mg before bedtime. DULoxetine (CYMBALTA) Take 60 mg by mouth 0 60 mg capsule daily. furosemide (LASIX) 40 Take 40 mg by mouth 0 mg tablet daily. gabapentin (NEURONTIN) Take 1 capsule by 270 capsule 1 12/31 400 mg mouth in the morning capsuleIndications: and 1 capsule at noon Chronic pain syndrome and 1 capsule before bedtime. HYDROcodone-acetaminop Take 1 tablet by 0 hen (NORCO) 10-325 mg mouth every 6 (six) per tablet hours as needed for Pain. HYDROcodone-acetaminop Take 1 tablet by 0 hen (NORCO) 5-325 mg mouth every 6 (six) per tablet hours as needed for Pain. metFORMIN (GLUCOPHAGE) Take 1 tablet by 90 tablet 1 022 500 mg mouth daily. tabletIndications: Type 2 diabetes mellitus without complication, without long-term current use of insulin ([facility]) mirtazapine (REMERON) Take 30 mg by mouth 0 30 MG tablet at bedtime. multivitamin with Take 1 tablet by 0 folic acid (THERAGRAN) mouth daily. 400 mcg Tablet potassium chloride Take 20 mEq by mouth 0 (KLOR-CON M20) 20 mEq daily. tablet rOPINIRole (REQUIP) 2 Take 1 tablet by 180 tablet 1 10/21/19 22 mg tabletIndications: mouth 2 (two) times Restless legs daily. semaglutide (Ozempic) Inject 1 mg into the 4 mL 5 06/2021 1 mg/dose (2 mg/1.5 skin Take once mL) Pen weekly. InjectorIndications: Type 2 diabetes mellitus without complication, without long-term current use of insulin ([facility]) telmisartan-hydrochlor Take 1 tablet by 0 othiazide (MICARDIS mouth daily. HCT) 80-25 mg per tablet temazepam (RESTORIL) Take 15 mg by mouth 0 15 mg capsule nightly as needed for Sleep. venlafaxine XR Take 150 mg by mouth 0 (EFFEXOR-XR) 150 mg 24 daily. hr capsule documented as of this encounter Plan of Treatment Upcoming Encounters Date Type Specialty Care Team Description 04/22/2022 Office Visit Family Medicine Anabelle Yost MD [address] [place] [address] [place] [address] (Wo rk) documented as of this encounter Procedures Procedure Name Priority Date/Time Associated Diagnosis Comme nts XR DEXA CENTRAL Routine 01/19/2022 11:55 AM Malignant neoplasm of Results for this CDT lower-inner quadrant procedu re are in of right female the results breast, unspecified section. estrogen receptor status (HCC) documented in this encounter Results XR Dex[facility] (01/19/2022 [...] (HCC) documented in this encounter Care Teams Marketing Research Intern Relationship Specialty Start Date End Date Anabelle Yost MD PCP - General Family Medicine 10/03/[address] [place] [address] [place], [id number] documented as of this encounter
--- OUTSIDE RECORDS SUMMARY | 2022-02-01 20:27 | XMS_ITS | Encounter Summary ---
:1955 Author Organization [facility] and Its Subsidiaries and Affiliates Address [address] [address] [place] [address] Care Team Providers Name Role Phone Anabelle Yost MD Primary Care Provider Encounter Details Date Type Department Care Team Description 12/31/2021 History [facility] Anabelle Whitehead MD [facility] [address] [place], [address] [place] [address] [phone] Social History Tobacco Use Types Packs/Day Years [...] Office Visit Family Medicine Anabelle Yost MD [address] [place] [address] [address] [place] [address] (Wo rk) documented as of this encounter Visit Diagnoses Not on filedocumented in this encounter Care Teams Railroad Car Repairman Relationship Specialty Start Date End Date Anabelle Yost MD PCP - General Family Medicine 10/03/21 [facility] [address] [place] [address] documented as of this encounter
--- OUTSIDE RECORDS SUMMARY | 2022-02-01 20:28 | XMS_ITS | Encounter Summary ---
:1955 Author Organization [facility] Address [address] [facility] [place] [address] Phone Care Team Providers Name Role Phone Anabelle Yost MD Primary Care Provider Reason for Visit Reason Comments Post Operative Follow Up CR B2 CR-PO-DOS:[id number] n Right hip -MIKE Consultation (Routine) - Pending Review Specialty Diagnoses / Procedures Referred By Contact Refer red To Contact Orthopaedics Diagnoses Dislocation of hip joint prosthesis, initial encounter (HCC) Deisy Bazan MD [facility] [address] [facility] [address] [place], [address] [address] [place] [address] Phone: Fax: Referral ID Status Reason Start Expiration Visits Visits Date Date Requested Authorized [id number] Pending [facility] 11/25/2021 11/26/2022 1 1 Review Follow up Encounter Details Date Type Department Care Team Description 12/22/2021 Follow-Up [facility] Donna Arshad Cl osed dislocation of right hip, initial encounter (HCC) (Primary Dx); Orthopaedics ACNP-BC Failure of right total hip arthroplasty, initial encounter (HCC); [address] [place] [address] [facility] [address] [place] [address] [place] [address] [phone] Social History Tobacco Use Types Packs/Day Years Used Date Never Smoker Smokeless Tobacco: Never Used Tobacco Cessation: Counseling Given: Yes Alcohol Use Standard Drinks/Week Comments Yes 0 (1 standard drink = 0.6 oz pure alcoho l) 1-2 socially Alcohol Habits Answer Date Recorded How often do you have a drink containing alcohol? Monthly or less 07/31/2020 How many drinks containing alcohol do you have on a Not aske d 07/31/2020 typical day when you are drinking? How often do you have six or more drinks on one Not asked 07/31/2020 occasion? 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 documented as of this encounter Last Filed Vital Signs Vital Sign Reading Time Taken Comments Blood Pressure 116/72 12/22/2021 8:19 AM CDT Pulse 80 12/22/2021 8:19 AM CDT Temperature 36.6 ??C (97.8 ??F) 12/22/2021 8:19 AM CDT Respiratory Rate 20 12/22/2021 8:19 AM CDT Oxygen Saturation 94% 12/22/2021 8:19 AM CDT Inhaled Oxygen Concentration - - Weight 139.3 kg (307 lb) 12/22/2021 8:19 AM CDT Height 172.7 cm (5' 8) 12/22/2021 8:19 AM CDT Body Mass Index 46.68 12/22/2021 8:19 AM CDT documented in this encounter Progress Notes Donna Arshad, ACNP-BC - 12/22/2021 8:15 AM CDT PROCEDURES: Past Surgical History: Procedure Laterality Date ??? ACHILLES TENDON REPAIR ??? BRACHIOPLASTY with liposuction ??? BREAST RECONSTRUCTION ??? CATARACT EXTRACTION, BILATERAL ??? CHOLECYSTECTOMY ??? FACELIFT multiple ??? fluid removed from heart 05/21/2020 ??? HYSTERECTOMY 1998 ??? INSERTION CEMENT RIGHT HIP Right 04/15/2020 Performed by Kasey Hassan MD at ADULT OR ??? MASTECTOMY ??? ORIF ANKLE DISLOCATION Right ??? PORT PLACEMENT ??? PORT REMOVAL ??? REVISE TOTAL HIP Right 11/20/2021 Performed by Blas Armendariz MD at ADULT OR ??? REVISE TOTAL HIP TO PROXIMAL FEMUR REPLACEMENT/TOTAL ONCOLOGIC HIP REPLACEMENT Right 04/15/2020 Performed by Kasey Hassan MD at ADULT OR HPI: Sarah Doran is a 66 y.o. y.o. female who is here for postop visit S/P right Hip revision. Severity of pain is described as moderate. It is alleviated with rest and medications and exacerbated with increased activity. PE: Incision: healing well, no significant drainage, no dehiscence, no significant erythema There is mild hematoma formation, Foot Pulses: Dorsalis Pedis: present Sensation: Normal Motor: normal Pain:decreased Deformity:decreased Function:improved ASSESSMENT: Routine postoperative follow-up after above noted orthopaedic procedures with no evidence of complications. DVT prophylaxis: Patient has completed lovenox therapy PLAN: 1. Pain control on Opioids. Pain medication was refilled. Risks of medications were discussed. 2. PT/OT-outpatient Ordered-Jose Urbina 3. Follow-up in:[address] Armendariz 4. Obtain right hip Xrays at next visit 5. Immobilization / braces: None 6. WB status: WBAT to right hip 7. Sutures/[place]: bing removed in acute rehab. Return precautions: Patient was instructed to return to the Emergency Room should the following symptoms occur: fever > 101.5 F, chills, shortness of breath, chest pain, pain out of proportion, excessive or purulent wound drainage, foul odor from incision, new onset numbness/tingling or weakness to extremities, and any other concerns. FENG Barba documented in this encounter Miscellaneous Notes Addendum Note - FENG Barba - 12/22/2021 8:15 AM CDT Addended by: DONNA ARSHAD on: 12/22/2021 08:49 AM Modules accepted: Orders documented in this encounter Plan of Treatment Upcoming Encounters Date Type Specialty Care Team Description 03/11/2022 Office Visit Orthopaedics Kasey Hassan MD [address] [facility], [address] (Wo rk) documented as of this encounter Visit Diagnoses Diagnosis Closed dislocation of right hip, initial encounter (HCC) - Primary Failure of right total hip arthroplasty, initial encounter (HCC) Postop check Follow-up examination, following unspeci fied surgery documented in this encounter Care Teams Horses Or Mules Teamster Relationship Specialty Start Date End Date Anabelle Yost MD PCP - General Family Medicine 04/15/[address] [place] [address] [place], [place] [address] documented as of this encounter
--- OUTSIDE RECORDS SUMMARY | 2022-02-01 20:28 | XMS_ITS | Encounter Summary ---
:1955 Author Organization [facility] Address [address] [place] [address] Phone Care Team Providers Name Role Phone Anabelle Yost MD Primary Care Provider Reason for Visit Auth/Cert Specialty Diagnoses / Procedures Referred By Contact Refer red To Contact Diagnoses Right hip subluxation, sequela Referral ID Status Reason Start Date Expiration Date Visits Requ ested Visits Authorized [id number] 1 1 Encounter Details Date Type Department Care Team Description 11/20/2021 Ancillary Procedure ANESTHESIA Raysa Prajapati [address] [place] [address] MD Maria Alejandra [address] [place] [address] [place] [address] [phone] (Wo rk) Social History Tobacco Use Types Packs/Day Years Used Date Never Smoker Smokeless Tobacco: Never Used Alcohol Use Standard Drinks/Week Comments Yes 0 [...] at Date Recorded Female 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 documented as of this encounter Plan of Treatment Upcoming Encounters Date Type Specialty Care Team Description 03/11/2022 Office Visit Orthopaedics Kasey Hsasan MD [address] [facility] [address] [place], [address] (Wo rk) documented as of this encounter Procedures Procedure Name Priority Date/Time Associated Diagnosis Comme nts ANES PERFORMED US Routine 11/20/2021 5:05 PM Resu lts for this REGIONAL/INVASIVE CDT procedure are in the results section. documented in this encounter Results ANES Performed US Regional/Invasive (11/20/2021 5:05 PM CDT) Specimen (Source) Anatomical Location Collection Method / Collectio n Time Received Time / Laterality Volume Narrative Radiology, Silent Coin Machine Assembler - 11/20/2021 5:05 PM CDT This procedure was performed during a surgical case. Please see the anesthetic note for the f ormal interpretation. Raysa Prajapati MD [facility] documented in this encounter Visit Diagnoses Not on filedocumented in this encounter Care Teams Tester Sound Relationship Specialty Start Date End Date Anabelle Yost MD PCP - General Family Medicine 04/15/[address] [place] [address] [address] [facility] [place] [address] documented as of this encounter
--- OUTSIDE RECORDS SUMMARY | 2022-02-01 20:28 | XMS_ITS | Encounter Summary ---
:1955 Author Organization [facility] Address [address] [place] [phone] Phone Care Team Providers Name Role Phone Anabelle Yost MD Primary Care Provider Reason for Visit Auth/Cert Specialty Diagnoses / Procedures Referred By Contact Refer red To Contact Diagnoses Right hip subluxation, sequela Referral ID Status Reason Start Date Expiration Date Visits Requ ested Visits Authorized [id number] 1 1 Encounter Details Date Type Department Care Team Description 11/20/2021 Anesthesia Event [facility] Jacob Martini MD [address] [place] [address], [place] [address] [place] [address] Naljosie, Alicia A, CONDUIT INSTALLER [address] [place] [address] [place] [address] Anesthesia Record Procedure Summary Procedure Name Responsible Anesthesia Start Anesthesia Stop Time Anesthesiologist Time REVISE TOTAL HIP Jacob Martini, 11/20/21 1341 1657 (Right ) Events Date Time Event Comment 11/20/2021 1310 Equipment Ready Equipment in the room was prepared and checked. 1313 1341 An Start 1341 In Room Standard Monitor s Placed; VItal Signs Checked 1343 An Start Data 1346 Pre Induction/Sedation Assessmen t Patient reevaluated. Conditions appear adequate to proceed. 1355 An Induction 1356 An Intubation 1358 Turned Over to Surgeon 1408 Quick Note BP cuff placed o n left wrist due to bp noted on magdalena tor. Pt reports history of lymph edema with IV and BP measurements in right arm. Pt laying on left s negro. 1415 Quick Note Bp noted. In ricky m . Cuff not cycling appropri ately. Cuff being moved around. Bp noted.with improvement. If any other issues will insert a li ne adw 1430 Procedure Start 1430 Eyes Checked Eyes Checked; Co nfirmed free from pressure 1510 Eyes Checked Eyes Checked; Co nfirmed free from pressure 1605 Surgical Closure Begins 1639 Procedure Finish 1642 An Emergence 1644 Extubation 1644 an stop data 1645 Out of Room 1657 An Stop 11/21/2021 0525 Discharge Criteria Met 11/27/2021 1939 Discharge Criteria Met Name Total Propofol Bolus 10 MG/ML 150 mg Rocuronium Alden 50 MG/5ML 50 mg succinylcholine 20 MG/ML 200 mg Glycopyrrolate 1 MG/5ML 0.5 mg fentaNYL Citrate (PF) 50 MCG/ML 300 mcg Midazolam HCl 2 MG/2ML 2 mg phenylephrine HCl 1 MG/10ML 700 mcg tranexamic acid 1000 MG/10ML 1 g Cefazolin (Ancef) - each gram in 10 mL sterile water a nd give over 3-5 3 g minutes once dissolved and clear Phenylephrine (SUZANNE-SYNEPHRINE) 10,000 mcg in sodium ch loride 0.9 % infusion 3,775 mcg Neostigmine Methylsulfate 2.5 mg electrolyte-A (PLASMALYTE-A) solution 1,000 mL Lactated Ringers Inf. 500 mL Agents Name O2 N2O Sevoflurane Exp MAC O2 Insp Air Sevoflurane Insp O2 Exp Blood No blood administrations on file. Lines, Drains, and Airways Type Details Placement Removal Wound Vac NPWT 11/20/21; 1628; 11/20/21; 11/20/21 1628 by Marcello SILVA; Hip; Anterior, Sherin Wood RN Right, Upper Peripheral IV 11/20/21; 1024; 20; Gauge; 11/20/21 1024 by Kinl ey 11/27/21 1445 by Anterior, Distal, Left; LEILA Dow RN Forearm; 11/27/21; 1445; cholo otero rn ETT/Airway 11/20/21; 1356; D.L.: Grade 11/20/21 1356 by Cristina y A 11/20/21 1644 by I Magdalena; Sinan #2; 1st USAMA Bergman CRNA attempt; 7 mm; 21 cm; Oropharyngeal airway; Lips; Single-lumen; Cuffed, ETT passed easily without resistance., Checked for Leak; Yes; Yes; Yes; Yes Peripheral IV 11/20/21; 1357; Madalyn, 11/20/21 1357 by Alicia Ramirez 11/22/21 0000 by CONDUIT INSTALLER; 1st attempt; Yes; USAMA Bergman RN Chlorhexidine ; Flushed with 10 cc NS; 20; Gauge; Left; Hand; Taped, Transparent; 11/22/21 (not present on assessment) documented in this encounter Social History Tobacco Use Types Packs/Day Years [...] at Date Recorded 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 documented as of this encounter OR Notes Anesthesia Postprocedure Evaluation - Vega Wood MD - 11/20/2021 8:30 PM CDT Post Anesthesia Assessment Surgery Date: 11/20/2021 Sarah Doran REVISE TOTAL HIP (Right ) Patient Location: PACU Pain Management: Pain Relief: Adequate Analgesia Post-op Vital Signs: Stable SpO2 (%): 98 Heart Rate: 78 Respiration: 17 NIBP (S/D): 126/80 Temp: 97.8 Temp Source: Skin Airway Patency: Airway patent; ventilatory exchange adequate Post-op Nausea and Vomiting: None Level of Consciousness: Awake, Alert and Oriented Complications: None, Mental Status: Alert O2 Assist Device: Room air Post-op Hydration: No evidence of hydration deficits noted Patient Participation: Patient able to participate Anesthesia Type: general No complications documented. Anesthesia Procedure Notes - Angelo Oconnell MD - 11/20/2021 6:40 PM CDTAssociated Order(s): Lower Extremity Block Lower Extremity Block: Other (See Comment) Block Type Comments: МАРИНА Laterality: right Patient location during procedure: Post-Op Reason for Block: Post-op Block Requested By: Primary Surgeon Staffing Attending Anesthesiologist: Angelo Oconnell MD, Medically Directed Resident: Vega Wood MD Inserted by: Vega Wood MD Insertion Attempts: 1st attempt Preanesthetic Checklist Completed: IV checked, monitors and equipment checked, pre-op evaluation and timeout performed Technique Single-shot Monitoring Patient monitoring: ECG, SPO2 and BP Patient position: Supine Mental Status During Block: Awake Prep: Chlorhexidine Gluconate, Mask and Sterile Drape Needle Needle type: Insulated Nerve Stimulator Needle Assessment Injection assessment: No Paresthesia, Aspiration: Neg Heme, Smooth Injection and Slow, Incremental Doses Complications None Additional Notes I was present during the entirety of the procedure. ANGELO OCONNELL MD Anesthesia Preprocedure Evaluation - Jacob Martini MD - 11/20/2021 12:55 PM CDT NPO Date of last liquid consumption: -- Time of last liquid consumption: -- Date of last solid food consumption: -- Time of last solid food consumption: -- Comment: -- Case: [id number] Date/Time: 11/20/21 1153 Procedure: REVISE TOTAL HIP (Right ) Diagnosis: Dislocation of hip joint prosthesis, initial encounter ([facility]) [T84.029A, Z96.649] Pre-op diagnosis: Dislocation of hip joint prosthesis, initial encounter ([facility]) [T84.029A, Z96.649] Location: MAIN OR ADULT OR Surgeons: Blas Armendariz MD Allergies Allergen Reactions ??? Compazine [Prochlorperazine Edisylate] Shortness Of Breath ??? Nitrofurantoin Rash and Other (See Comments) ??? Prochlorperazine Anaphylaxis and Other (See Comments) ??? Other Other (See Comments) ??? Vancomycin Other (See Comments) Unsure of drug or dose, but caused total renal failure Other reaction(s): Acute renal failure ??? Adhesive Rash Can tolerate paper tape ??? Mycin [Macrolides And Ketolides] Rash PHYSICAL EXAM Airway Mallampati: II Mouth Opening: good External anatomy reassuring TM Distance: >3 FB Neck ROM: full Dental No notable dental hx Cardiovascular Cardiovascular exam normal Pulmonary Pulmonary exam normal Anesthesia Notes (11/20/2021) right hip revision. 2019 record showed proven a/w with glidescope. Lab acceptable. Chartstates chf but see no cardiac studies , she sees card q 6months with last appt 08/2021 and told goodreport' is seen for fluid. Had echo years ago . Does shopping but knees/ hip limit activity.adw PAT ROS Relevant Problems CARDIOVASCULAR (+) History of left hip replacement (+) Hypertension RESPIRATORY SYSTEM (+) History of left hip replacement GI/ (+) Stage 3a chronic kidney disease, GFR 45-60 ml/min ([facility]) ENDOCRINE (+) Diabetes mellitus (HCC) JOINT/MUSCULOSKELETAL (+) Closed dislocation of right hip ([facility]) (+) Closed disp fracture of lesser trochanter of left femur with nonunion (+) Closed fracture of femur with nonunion (+) Dislocation of hip prosthesis ([facility]) (+) Failure of right total hip arthroplasty ([facility]) (+) Other fracture of right femur, initial encounter for closed fracture ([facility]) (+) Periprosthetic fracture of proximal end of femur (+) Right hip subluxation, sequela PSYCH/SOCIAL (+) Depression HEM/ONC (+) Inflammatory breast cancer, unspecified laterality ([facility]) Additional Medical History Diagnosis Date Comment Source Arthritis Cancer Depression Diabetes Heart failure High blood pressure disorder Past Surgical History: Procedure Laterality Date ??? [...] ??? PORT REMOVAL ??? REVISE TOTAL HIP TO PROXIMAL FEMUR REPLACEMENT/TOTAL ONCOLOGIC HIP REPLACEMENT Right 04/15/2020 Performed by Kasey Hassan MD at ADULT OR Social History Socioeconomic History ??? Marital status: Spouse name: Not on file ??? Number of children: Not on file ??? Years of education: Not on file ??? Highest education level: Not on file Occupational History ??? Not on file Tobacco Use ??? Smoking status: Never Smoker ??? Smokeless tobacco: Never Used Vaping Use ??? Vaping Use: never used Substance and Sexual Activity ??? Alcohol use: Yes Comment: 1-2 socially ??? Drug use: Never ??? Sexual activity: Not on file Other Topics Concern ??? Not on file Social History Narrative ??? Not on file Social Determinants of Health Financial Resource Strain: Not on file Food Insecurity: Not on file Transportation Needs: Not on file Physical Activity: Not on file Stress: Not on file Social Connections: Not on file Intimate Partner Violence: Not on file Housing Stability: Not on file E-Cigarettes/Vaping ??? E-Cigarette/Vaping Use Never Used ??? Passive Exposure No ??? Counseling Given Yes E-Cigarette/Vaping Substances ??? Nicotine No ??? THC No ??? CBD No ??? Flavoring No ??? Other No ??? Unknown No E-Cigarette/Vaping Devices ??? Disposable No ??? Pre-filled or Refillable Cartridge No ??? Refillable Tank No ??? Pre-filled Pod No Complex Physical Exam ANESTHESIA PLAN ASA Score: 3 Anesthesia Plan: general Comments: Patient consented for nerve block. Patient understands risks of regional anesthesia including but not limited to: infection, falling, bleeding, block failure, cardiac/respiratory arrest and peripheral nerve injury. Patient understands and agrees to proceed. All questions answered. Induction: intravenous Anesthetic plan and risks discussed with patient. Informed Consent: Use of blood products discussed with patient who Consented to blood. Plan discussed with CONDUIT INSTALLER and attending. Attending Statement: Updates made to evaluation to bring current. Beta Aakash Therapy: N/A - Not applicable Not on Beta Aakash Therapy documented in this encounter Miscellaneous Notes Transfer of Care - Osvaldo Almaraz CRNA - 11/20/2021 4:56 PM CDT Anesthesia Handoff Surgery Date: 11/20/2021 Sarah Doran REVISE TOTAL HIP (Right ) Patient Location: PACU Pain Management: Pain Relief: Adequate Analgesia Post-op Assessment: No apparent anesthetic complications Post-op Vital Signs: Stable SpO2 (%): 98 Heart Rate: 80 Respiration: 18 NIBP (S/D): 143/82 Temp: 97.8 Temp Source: Skin Post-op Nausea and Vomiting: None Level of Consciousness: Drowsy/Arousable Complications: None, O2 Assist Device: Face mask Anesthesia Type: general documented in this encounter Plan of Treatment Upcoming Encounters Date Type Specialty Care Team Description 03/11/2022 Office Visit Orthopaedics Kasey Hassan MD [address] [place] [address] 3921 (Wo rk) documented as of this encounter Procedures Procedure Name Priority Date/Time Associated Comments Diagnosis ANESTHESIA BLOCK Routine 11/20/2021 6:40 PM Resul ts for this LOWER EXTREMITY CDT procedure ar e in the results section. documented in this encounter Results Lower Extremity Block (11/20/2021 6:40 PM CDT) Narrative Angelo Oconnell MD - 6:40 PM CDT Angelo Oconnell MD ? 12/01/2021 ??7:24 AM Lower Extremity Block: Other (See Comme nt) Block Type Comments: МАРИНА Laterality: right Patient location during procedure: Post- Op Reason for Block: Post-op Block Requested By: Primary Surgeon Staffing Attending Anesthesiologist: Angelo Oconnell MD, Medically Directed Resident: Vega Wood MD Inserted by: Vega Wood MD Insertion Attempts: 1st attempt Preanesthetic Checklist Completed: IV checked, monitors and equi pment checked, pre-op evaluation and timeout performed Technique Single-shot Monitoring Patient monitoring: ECG, SPO2 and BP Patient position: Supine Mental Status During Block: Awake Prep: Chlorhexidine Gluconate, Mask and Sterile Drape Needle Needle type: Insulated Nerve Stimulator Needle Assessment Injection assessment: No Paresthesia, As piration: Neg Heme, Smooth Injection and Slow, Incremental Doses Complications None Additional Notes I was present during the entirety of the procedure. ANGELO OCONNELL MD Jacob Martini MD ND ANESTHESIA documented in this encounter Visit Diagnoses Not on filedocumented in this encounter Administered Medications Inactive Administered Medications - up to 3 most recent administrations Medication Order MAR Action Action Date Dose Rate Site ceFAZolin (ANCEF) injection Given 11/20/2021 2:15 PM CDT 3 g Intravenous, PRN, Starting on Griselda 11/20/21 at 1415, Until Griselda 11/20/21 at 1657, Anesthesia Intra-op electrolyte-A (PLASMALYTE-A) solution New Bag 11/20/2021 2:35 PM CDT Intravenous, Continuous PRN, Starting on Griselda 11/20/21 at 1341, Anesthesia Intra-op New Bag 11/20/2021 1:41 PM CDT fentaNYL Citrate (PF) (SUBLIMAZE) inject ion Given 11/20/2021 4:44 PM CDT 50 mcg PRN, Intravenous, Starting on Griselda 11/20/21 at 1341, Anesthesia Intra-op Given 11/20/2021 4:13 PM CDT 50 mcg Given 11/20/2021 2:32 PM CDT 50 mcg Glycopyrrolate SOLN Given 11/20/2021 4:15 PM CDT 0.5 mg Buccal, PRN, Starting on Griselda 11/20/21 at 1615, Anesthesia Intra-op lactated ringers infusion New Bag 11/20/2021 2:50 PM CDT Intravenous, Continuous PRN, Starting on Griselda 11/20/21 at 1450, Anesthesia Intra-op Midazolam HCl (VERSED) injection Given 11/20/2021 1:41 PM CDT 2 mg PRN, Intravenous, Starting on Griselda 7/21/22 at 1341, Anesthesia Intra-op Neostigmine Methylsulfate SOSY Given 11/20/2021 4:15 PM CDT 2.5 mg PRN, Intravenous, Starting on Griselda 11/20/21 at 1615, Anesthesia Intra-op Phenylephrine (SUZANNE-SYNEPHRINE) Rate/Dose Change 11/20/2021 3:02 25 mcg/min 15 mL/hr 10,000 mcg in sodium chloride PM CDT 0.9 % infusion Intravenous, Continuous PRN, Starting on Griselda 11/20/21 at 1450, Anesthesia Intra-op Rate/Dose Change 11/20/2021 2:58 PM CDT 50 mcg/min 30 mL/hr Rate/Dose Change 11/20/2021 2:54 PM CDT 75 mcg/min 45 mL/hr phenylephrine HCl IV syringe Given 11/20/2021 2:45 PM CDT 100 mcg PRN, Intravenous, Starting on Griselda 11/20/21 at 1418, Anesthesia Intra-op Given 11/20/2021 2:39 PM CDT 100 mcg Given 11/20/2021 2:22 PM CDT 100 mcg propofol (DIPRIVAN) bolus from bag Given 11/20/2021 1:55 PM CDT 150 mg PRN, Intravenous, Starting on Griselda 11/20/21 at 1355, Anesthesia Intra-op Rocuronium Alden (ZEMURON) injection S OSY Given 11/20/2021 2:15 PM CDT 50 mg PRN, Intravenous, Starting on Griselda 11/20/21 at 1415, Anesthesia Intra-op succinylcholine (ANECTINE) injection Given 11/20/2021 1:55 PM CDT 200 mg PRN, Intravenous, Starting on Griselda 11/20/21 at 1355, Anesthesia Intra-op tranexamic acid (CYKLOKAPRON) injection Given 11/20/2021 2:26 PM CDT 1 g PRN, Intravenous, Starting on Griselda 11/20/21 at 1426, Anesthesia Intra-op documented in this encounter Care Teams Kitchen Help Handyman Relationship Specialty Start Date End Date Anabelle Yost MD PCP - General Family Medicine 04/15/[address] [place] [address] [place] [id number] (work) documented as of this encounter
--- OUTSIDE RECORDS SUMMARY | 2022-02-01 20:28 | XMS_ITS | Encounter Summary ---
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 documented as of this encounter Medications at Time of Discharge Medication Sig Dispensed Refills Start Date End Date amoxicillin (AMOXIL) 500 Take Amoxicillin 1gm 4 capsule 0 0 05/29/2020 mg capsule 30 minutes prior to dental procedure Indications: Infection of the Skin and/or Soft Tissue Ascorbic Acid (VITAMIN C) Take 1,000 mg by 0 1000 MG tablet mouth daily aspirin 81 MG EC tablet Take 81 mg by mouth 0 daily AZO-CRANBERRY PO Take by mouth 0 benzonatate (TESSALON) 100 Take 200 mg by mouth 0 05/23/2020 mg capsule 3 times daily as needed Biotin 97488 MCG TABS Take 25,000 mcg by 0 mouth Calcium Take 1 tablet by 0 Carb-Cholecalciferol mouth 2 times daily (CALCIUM-VITAMIN D) with meals 500-200 MG-UNIT per tablet carvedilol (COREG) 12.5 mg Take 25 mg by mouth 2 0 tablet times daily with meals clonazePAM (KLONOPIN) 0.5 Take 0.5 mg by mouth 0 mg tablet 2 times daily colesevelam (WELCHOL) 625 Take 1,250 mg by 0 MG tablet mouth 2 times daily with meals Cranberry-Vitamin as directed 0 C-Probiotic (AZO CRANBERRY) 250-30 MG TABS cyclobenzaprine (FLEXERIL) Take 10 mg by mouth 3 0 10 mg tablet times daily as needed for Muscle spasms diclofenac (VOLTAREN) 75 Take 75 mg by mouth 2 0 10/20/2021 mg EC tablet times daily dicyclomine (BENTYL) 10 mg Take 10 mg by mouth 4 0 capsule times daily before meals and nightly diphenhydrAMINE (SOMINEX) Take 50 mg by mouth 0 0 12/10/2020 25 MG tablet DULoxetine (CYMBALTA) 60 Take 60 mg by mouth 0 mg capsule daily ELDERBERRY PO Take 100 mg by mouth 0 Enoxaparin Sodium Inject 40 mg into the 24 mL 0 022 (LOVENOX) injection skin 2 times daily ferrous sulfate 325 (65 Take 325 mg by mouth 0 FE) MG EC tablet fluconazole (DIFLUCAN) 100 Take 100 mg by mouth 0 MG tablet daily Fluticasone Inhale into the lungs 0 Furoate-Vilanterol (BREO ELLIPTA IN) furosemide (LASIX) 40 mg Take 40 mg by mouth 0 tablet daily gabapentin (NEURONTIN) 400 Take 400 mg by mouth 0 MG capsule 3 times daily HYDROcodone-acetaminophen Take 1 tablet by 18 tablet 0 12/02 (NORCO) 10-325 MG per mouth every 8 hours tablet as needed for Pain Max Daily Amount: 3 tablets metFORMIN (GLUCOPHAGE) 500 Take 500 mg by mouth 0 mg tablet daily with breakfast mirtazapine (REMERON) 30 Take 30 mg by mouth 0 MG tablet nightly Multiple Vitamin Take by mouth 0 (MULTI-VITAMIN DAILY) TABS ondansetron (ZOFRAN) 4 mg Take 4 mg by mouth 0 tablet every 8 hours as needed for Nausea potassium chloride SA Take 20 mEq by mouth 0 05/04 (K-DUR,KLOR-CON) 20 mEq daily as needed tablet Probiotic Product as directed 0 (CULTURELLE PROBIOTICS PO) promethazine (PHENERGAN) Take 12.5 mg by mouth 0 12.5 MG tablet every 6 hours as needed for Nausea rOPINIRole (REQUIP) 2 MG Take 2 mg by mouth 0 tablet nightly Semaglutide, 1 MG/DOSE, Inject 4 mg into the 0 (OZEMPIC, 1 MG/DOSE,) 4 skin once a week MG/3ML Vicky Pen-inj telmisartan-hydrochlorothi Take 1 tablet by 0 azide (MICARDIS HCT) 80-25 mouth daily MG per tablet temazepam (RESTORIL) 30 MG Take 30 mg by mouth 0 capsule nightly as needed for Sleep TURMERIC PO Every shift 0 venlafaxine (EFFEXOR-XR) Take 150 mg by mouth 0 150 mg 24 hr capsule daily documented as of this encounter Plan of Treatment Upcoming Encounters Date Type Specialty Care Team Description 03/11/2022 Office Visit Orthopaedics Kasey Hassan MD [address], [place] [address] (Wo rk) documented as of this encounter Procedures Procedure Name Priority Date/Time Associated Diagnosis Comme nts XR HIP WWO PELVIS Routine 01/08/2022 11:39 AM Closed dislocati on Results for this RIGHT 2 OR 3 VIEWS CDT of right hip, procedur e are in initial encounter the result s (HCC) section. documented in this encounter Results XR Hip WWO Pelvis Right 2 or 3 Views (01/08/2022 11:39 AM CDT) Anatomical Region Laterality Modality Hip, Pelvis Digital Radiography Specimen (Source) Anatomical Collection Method Collection Time Re ceived Time Location / / Volume Laterality 01/08/2022 12:09 PM CDT Impressions 01/08/2022 12:10 PM CDT IMPRESSION: Prior right proximal femur resection wit h placement of a right proximal femoral prosthesis and right hip total arthroplasty. No acute complication. No new abnormality. ?? RESIDENT RADIOLOGIST: ATTENDING RADIOLOGIST: Malcom Munroe Narrative 01/08/2022 12:10 PM CDT RADIOLOGIC EXAM: XR HIP WWO PELVIS RIGHT 2 OR 3 VIEWS DATE AND TIME OF EXAMINATION: 01/08/2022 1 1:25 AM CLINICAL HISTORY: S73.004A - Unspecified dislocation of right hip, initial encounter (HCC) ?? COMPARISON: 11/18/2021 TECHNIQUE:XR HIP WWO PELVIS RIGHT 2 OR 3 VIEWS FINDINGS: Prior right proximal femur resection wit h placement of a right proximal femoral prosthesis and right hip total arthroplasty. No acute complication. No new abnormality. Procedure Note Pedro Mckeon MD - 01/08/2022F ormatting of this note might be different from the original. RADIOLOGIC EXAM: XR HIP WWO PELVIS RIGHT 2 OR 3 VIEWS DATE AND TIME OF EXAMINATION: 01/08/2022 1 1:25 AM CLINICAL HISTORY: S73.004A - Unspecified dislocation of right hip, initial encounter (HCC) COMPARISON: 11/18/2021 TECHNIQUE:XR HIP WWO PELVIS RIGHT 2 OR 3 VIEWS FINDINGS: Prior right proximal femur resection wit h placement of a right proximal femoral prosthesis and right hip total arthroplasty. No acute complication. No new abnormality. IMPRESSION: Prior right proximal femur resection wit h placement of a right proximal femoral prosthesis and right hip total arthroplasty. No acute complication. No new abnormality. RESIDENT RADIOLOGIST: ATTENDING RADIOLOGIST: Malcom Munroe Blas Armendariz MD [facility] ORDER BABAK documented in this encounter Visit Diagnoses Diagnosis Closed dislocation of right hip, initial encounter (HCC) documented in this encounter Care Teams Call Worker Person Relationship Specialty Start Date End Date Anabelle Yost MD PCP - General Family Medicine 04/15/[address] [place] [address] [address] [place] [id number] documented as of this encounter
--- OUTSIDE RECORDS SUMMARY | 2022-02-01 20:28 | XMS_ITS | Encounter Summary ---
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) [address] [place] [address] [place], [address] [phone] Social History Tobacco Use Types Packs/Day Years Used Date Never Smoker Smokeless Tobacco: Never Used Tobacco Cessation: Counseling Given: No Alcohol Use Standard Drinks/Week Comments Yes 0 [...] at Date Recorded 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 of 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 encounter Last Filed Vital Signs Vital Sign Reading Time Taken Comments Blood Pressure 125/75 01/08/2022 12:11 PM CDT Pulse 84 01/08/2022 12:11 PM CDT Temperature 36.3 ??C (97.3 ??F) 01/08/2022 12:11 PM CDT Respiratory Rate 20 01/08/2022 12:11 PM CDT Oxygen Saturation 96% 01/08/2022 12:11 PM CDT Inhaled Oxygen Concentration - - Weight 143.8 kg (317 lb) 01/08/2022 12:11 PM CDT Height 172.7 cm (5' 8) 01/08/2022 12:11 PM CDT Body Mass Index 48.2 01/08/2022 12:11 PM CDT documented in this encounter Progress Notes Blas Armendariz MD - 01/08/2022 11:30 AM CDT Images from the original note were not included. DOS: 11/20/2021 Revision Right proximal femur, contrianed liner Dr. Armendariz INTERVAL HISTORY Patient is extremely happy and doing well. She has been able to ambulate without the use of assist device. She does feel safe for when ambulating with a cane all walker. She continues to improve. She is very ecstatic and gave me a hug today. No fevers no chills incision well healed X-ray shows right hip proximal femur in place constrained liner no sign of loosening failure ASSESSMENT & PLAN Right hip proximal femur dislocation revised to a constrained liner. She is doing well we have encouraged her to continue activities as tolerated. She will be very mindful although not all full precautions will be careful of maneuvers that compromise her hip stability. She has appointment with Dr. arauz she is encouraged to follow up with either of us. She can go on her 3 week trip around [facility] Blas Armendariz MD Director Of Slot Operations, Orthopaedic Surgery Joint Arthroplasty & Musculoskeletal Oncology [phone]. [email or web address] Answers for HPI/ROS submitted by the patient on 01/01/2022 Weight Gain: No weight loss: No fever: No chills: No fatigue: Yes Night Sweats: No Aching: Yes Stiffness: Yes rash: No Color Changes in Skin: No Breast Problems: No Skin Sores or Lesions: No headaches: No hearing loss: No ear pain: No ear discharge: No Nosebleeds: No sore throat: No Abscess or Infection (Head, Ears, Nose, Throat): No Decay (Head, Ears, Nose, Throat): No Wear Dentures: No Bleeding Gums: No Swollen Glands (Head, Ears, Nose, Throat): No Sinus Problems: No History of Brain Injury and/or Tumor: No blurred vision: No More Tears: No eye pain: No Wear Glasses and/or Contacts: No Eye Disease and/or Injury: No Glaucoma: No Cataracts: No chest pain: No palpitations: No leg swelling: No Leg Cramping: No History of Heart Surgery: No Blockage of Arteries: No History of Heart Attack: No Short of Breath: Yes High Cholesterol: No High Blood Pressure: Yes Low Blood Pressure: No Atrial Fibrillation: No Heart Disease: No Heart Failure: No Pacemaker: No nausea: No vomiting: No abdominal pain: No diarrhea: No constipation: No Reflux: No Ulcers: No Ulcerative Colitis: No Hemorrhoid: No Loss of Appetite: No Pancreatitis: No Change in Bowel Habits: No Gallbladder: No Urinary Infection: No Blood in Urine: No Kidney Stone: No Incontinent: No Urinary Retention: No Painful Urination: No Trouble Starting to Urinate: No Trouble Stopping Urination: No Genitourinary Discharge: No Menopause: Yes Bruise/Bleed Easily: No Diabetes: Yes Liver Disease and/or Jaundice: No Thyroid Problems: No Edema: No Cancer: No Transfusion History: No Anemia: No Blood Clots: No Leukemia: No Hepatitis: No HIV/AIDS: No Herpes: No Bleeding Gums/Teeth: No Sickle Cell: No Syphilis: No Regular Infections: No Slow Wound Healing: No MRSA: No dizziness: No tingling: No seizures: No Stroke: No Poor Balance: Yes Headaches: No Paralysis: No cough: Yes shortness of breath: Yes wheezing: No Sleep Apnea: Yes Asthma: No Bronchitis: No Emphysema and/or COPD: No Tuberculosis: No Coughing Blood: No What part of your body is in pain?: hip Where is the pain?: right, lateral Select a number that best describes your pain today:: 4 Select a number that best describes your pain usually:: 4 What type of pain are you having?: throbbing, dull, aching How long does the pain usually last?: Few Hours How often do you feel this pain?: Intermittent Onset: 7 Weeks What activities make the pain worse?: exercise, getting up from sitting What treatments have you already tried?: rest, anti-inflammatories, norcotics/pain meds Was this an injury or an accident?: no accident/injury Do you use any devices for assistance?: walker, wheelchair Have you seen another doctor for this condition?: has not been Have you had any of the following tests for this condition?: xrays What are you goals for this visit?: Talk about options for non-surgical care documented in this encounter Plan of Treatment Upcoming Encounters Date Type Specialty Care Team Description 03/11/2022 Office Visit Orthopaedics Kasey Hassan MD [facility] [address] [place], [place] [address] (Wo rk) documented as of this encounter Visit Diagnoses Diagnosis S/P revision of total hip - Primary Hip joint replacement by other means documented in this encounter Care Teams Junction Maker Relationship Specialty Start Date End Date Anabelle Yost MD PCP - General Family Medicine 04/15/[address] [place] [id number] documented as of this encounter
--- OUTSIDE RECORDS SUMMARY | 2022-02-01 20:28 | XMS_ITS | Clinical Summary ---
:1955 Author Organization [facility] Address [address] [facility], [address] Phone Care Team Providers Name Role Phone Anabelle Yost MD Primary Care Provider Allergies Active Allergy Reactions Severity Noted Date Comments Adhesive Rash Low 03/13/2020 Can tolerate pa per tape Prochlorperazine Edisylate Shortness Of Breath High 020 Macrolides And Ketolides Rash Low 03/13/2020 Nitrofurantoin Rash, Other (See High 02/27/2020 Comments) Other Other (See Comments) 02/27/2020 Prochlorperazine Anaphylaxis, Other High 02/27/2020 (See Comments) Vancomycin Other (See Comments) 02/27/2020 Unsure of drug or dose, but cause d total renal failure Other reaction( s): Acute renal failure Medications Medication Sig Dispensed Refills Start Date End Date Status Ascorbic Acid (VITAMIN Take 1,000 mg by 0 Active C) 1000 MG tablet mouth daily Calcium Take 1 tablet by 0 Act joseline Carb-Cholecalciferol mouth 2 times (CALCIUM-VITAMIN D) daily with meals 500-200 MG-UNIT per tablet venlafaxine Take 150 mg by 0 Act joseline (EFFEXOR-XR) 150 mg 24 mouth daily hr capsule metFORMIN (GLUCOPHAGE) Take 500 mg by 0 Active 500 mg tablet mouth daily with breakfast colesevelam (WELCHOL) Take 1,250 mg by 0 Active 625 MG tablet mouth 2 times daily with meals rOPINIRole (REQUIP) 2 Take 2 mg by mouth 0 Active MG tablet nightly promethazine Take 12.5 mg by 0 A ctive (PHENERGAN) 12.5 MG mouth every 6 tablet hours as needed for Nausea ondansetron (ZOFRAN) 4 Take 4 mg by mouth 0 Active mg tablet every 8 hours as needed for Nausea dicyclomine (BENTYL) Take 10 mg by 0 Active 10 mg capsule mouth 4 times daily before meals and nightly furosemide (LASIX) 40 Take 40 mg by 0 Active mg tablet mouth daily cyclobenzaprine Take 10 mg by 0 Active (FLEXERIL) 10 mg mouth 3 times tablet daily as needed for Muscle spasms temazepam (RESTORIL) Take 30 mg by 0 Active 30 MG capsule mouth nightly as needed for Sleep Multiple Vitamin Take by mouth 0 Active (MULTI-VITAMIN DAILY) TABS AZO-CRANBERRY PO Take by mouth 0 Active Biotin 08303 MCG TABS Take 25,000 mcg by 0 Active mouth ELDERBERRY PO Take 100 mg by 0 A ctive mouth Fluticasone Inhale into the 0 Ac tive Furoate-Vilanterol lungs (BREO ELLIPTA IN) fluconazole (DIFLUCAN) Take 100 mg by 0 Active 100 MG tablet mouth daily clonazePAM (KLONOPIN) Take 0.5 mg by 0 Active 0.5 mg tablet mouth 2 times daily mirtazapine (REMERON) Take 30 mg by 0 05/10/2020 Active 30 MG tablet mouth nightly ferrous sulfate 325 Take 325 mg by 0 05/23/2020 Active (65 FE) MG EC tablet mouth benzonatate (TESSALON) Take 200 mg by 0 05/23/2020 Active 100 mg capsule mouth 3 times daily as needed potassium chloride SA Take 20 mEq by 0 05/23/2020 Active (K-DUR,KLOR-CON) 20 mouth daily as mEq tablet needed amoxicillin (AMOXIL) Take Amoxicillin 4 capsule 0 05/29/2020 Active 500 mg capsule 1gm 30 minutes prior to dental procedure Indications: Infection of the Skin and/or Soft Tissue Additional Information Patient not taking. Reported on 12/22/2021 Cranberry-Vitamin C-Probiotic as directed 0 Active (AZO CRANBERRY) 250-30 MG TABS Probiotic Product (CULTURELLE as directed 0 Active PROBIOTICS PO) TURMERIC PO Every shift 0 Active telmisartan-hydrochlorothiazide Take 1 tablet by mouth 0 07/21/2020 Active (MICARDIS HCT) 80-25 MG per daily tablet Semaglutide, 1 MG/DOSE, Inject 4 mg into the 0 Active (OZEMPIC, 1 MG/DOSE,) 4 MG/3ML skin once a week Vicky Pen-inj carvedilol (COREG) 12.5 mg Take 25 mg by mouth 2 0 Active tablet times daily with meals DULoxetine (CYMBALTA) 60 mg Take 60 mg by mouth 0 Active capsule daily aspirin 81 MG EC tablet Take 81 mg by mouth 0 Active daily Enoxaparin Sodium (LOVENOX) Inject 40 mg into the 24 mL 0 11/27/2021 Active injection skin 2 times daily gabapentin (NEURONTIN) 400 MG Take 400 mg by mouth 3 0 Active capsule times daily HYDROcodone-acetaminophen Take 1 tablet by mouth 18 tablet 0 0 12/22/2021 Active (NORCO) 10-325 MG per tablet every 8 hours as needed for Pain Max Daily Amount: 3 tablets diclofenac (VOLTAREN) 75 mg EC Take 75 mg by mouth 2 0 10/20/2021 Active tablet times daily diphenhydrAMINE (SOMINEX) 25 MG Take 50 mg by mouth 0 12/10/2020 Active tablet Active Problems Problem Noted Date Closed dislocation of right hip 11/18/2021 Overview: Added automatically from request for gypsy melendez [id number] Stage 3a chronic kidney disease, GFR 45-60 ml/min 10/31 Right hip subluxation, sequela 11/18/2021 Dislocation of hip prosthesis 11/18/2021 Overview: Added automatically from request for gypsy melendez [id number] History of left hip replacement 05/29/2020 Depression 04/16/2020 Diabetes mellitus 04/16/2020 Hypertension 04/16/2020 Closed fracture of femur with nonunion 04/15/2020 Morbid obesity with BMI of 45.0-49.9, adult 04/15/2020 Inflammatory breast cancer, unspecified laterality Periprosthetic fracture of proximal end of femur 04/15 Failure of right total hip arthroplasty 04/10/2020 Other fracture of right femur, initial encounter for c losed fracture 04/05/2020 Overview: Added automatically from request for gypsy melendez [id number] Closed disp fracture of lesser trochanter of left femu r with nonunion 03/13/2020 Overview: Added automatically from request for gypsy melendez [id number] Encounters Date Type Specialty Care Team Description 01/08/2022 Follow-Up Orthopaedics Blas Armendariz, S/P ranulfo ion of MD total hip (Prim yimi Dx) 01/08/2022 Hospital Encounter Radiology Blas Armendariz, Kathleen sed dislocation MD of right hip, initial encount er ([facility]) 01/07/2022 Orders Only Orthopaedics Lisa Orlando, Closed di slocation INTELLIGENCE OPERATIONS of right hip, initial encount er ([facility]) (Primary Dx) 12/22/2021 Follow-Up Orthopaedics Cara Price, Closed di slocation of right hip, initial encounter ([facility]) (Primary Dx); ACNP-BC Failure of righ t total hip arthroplasty, initial encounter ([facility]); Postop check 11/20/2021 Ancillary Procedure General Surgery Raysa Prajapati MD 11/20/2021 Anesthesia Event Surgery Jacob Martini MD Nalder, Mary A, POWER SUPPLY ENGINEER 11/20/2021 Surgery Surgery Blas Armendariz, REVISE TO MIGUELINA HIP 11/19/2021 Travel 11/18/2021 Anesthesia Event Surgery Mihaela Worley, POWER SUPPLY ENGINEER 11/18/2021 - Hospital Encounter Rasheeda Fernandes Kathleen sed dislocation of right hip, initial encounter ([facility]) (Primary Dx); 11/27/2021 MD Kenneth Right hip pain; Raysa Prajapati Dislocatio n of hip joint prosthesis, initial encounter ([facility]) MD Odette Bess John C., MD Akhlaq, Anum, MD from Last 3 Months Immunizations Name Administration Dates Next Due Pneumococcal Polysaccharide 04/15/2020 Family History Medical History Relation Name Comments Dementia Father Hypertension Father Stroke Father Cancer Mother Diabetes Mother Stroke Mother No Known Problems Sister Relation Name Status Comments Father Mother Sister Alive Social History Tobacco Use Types Packs/Day Years [...] at Date Recorded 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 Last Filed Vital Signs Vital Sign Reading [...] Mass Index 48.2 01/08/2022 12:11 PM CDT Plan of Treatment Upcoming Encounters Date Type Specialty Care Team Description 03/11/2022 Office Visit Orthopaedics Kasey Hassan MD [address] [place], [place] [address] (Wo rk) Health Maintenance Due Date Last Done Comments Lipid Screening 1955 Microalbumin 1975 VARICELLA VACCINES (1 of 2 - 12/24/1995 2-dose childhood series) COLON CANCER SCREENING 10 2006 YEAR COLONOSCOPY Pneumococcal 65+ (2 - PCV) 04/15/2021 04/15/2020, 5 OSTEOPOROSIS SCREENING 2021 TDAP VACCINE 65 AND OVER 2021 Influenza Vaccine (#1) 2022 01/03/2021, 01/29/2020, 01/05/2019, Additional history exists Hemoglobin A1C 05/22/2022 11/19/2021 Creatinine 11/27/2022 11/27/2021, 11/26/2021, 11/25/2021, Additional history exists MMR VACCINES Completed 11/26/1995 Zoster Vaccines Completed 06/05/2018, 03/18/2018 COVID-19 Vaccine Completed 01/03/2021, 06/06/2020, 05/16/2020 HEPATITIS B VACCINES Aged Out No longer e ligible based on patient 's age to complete this topic HIB VACCINES Aged Out No longer eligib le based on patient 's age to complete this topic MENINGOCOCCAL VACCINES Aged Out No longer eligible (MCV4) based on patient 's age to complete this topic POLIO VACCINES Aged Out No longer eligib le based on patient 's age to complete this topic ROTAVIRUS VACCINES Aged Out No longer genny gible based on patient 's age to complete this topic Medical Devices Implanted Type Area Nephrology Social Worker Device Shelf Model / Identifier Expiration Serial / Lot Date [id number] - Depuy Cement Bone Smartset Gen Tamicin High Viscosity Sterile - [id number] Implant Right: DEPS [id number] / Implanted: Qty: 2 on 04/15/2020 by Kasey Hassan MD at [facility] / [id number] - Head Femoral [id number] +5mm Of fset 04/15 Tapered Hip Ceramic Biolox Delta Articul/Fito [id number] - [id number] Implant Right: [facility] 05/02/2026 [id number] / Implanted: Qty: 1 on 11/20/2021 by Blas Armendariz MD at [facility] Hip / [id number] - Cement Bone Medium Viscosity [id number] 09/30/2021 [id number] / Implanted: Qty: 2 on 04/15/2020 by Kasey Hassan MD at [facility] / [id number] Explanted Type Area Nephrology Social Worker Device Shelf Model / Identifier Expiration Serial / Lot Date - Body Femoral 15deg Standard Right Proximal Hip Titanium Porocoat Female Taper Anti Rotation Tab Suture Hole Offset Lps [id number] - [id number] Implant Right: [facility] / Explanted: Qty: 1 on 04/15/2020 at [facility] Hip / [id number] Prep Kit W/Restr. Depuy [id number] / Explanted: Qty: 1 on 04/15/2020 at [facility] / [id number] Procedures Procedure Name Priority Date/Time Associated Comments Diagnosis XR HIP WWO PELVIS Routine 01/08/2022 11:39 Closed dislocation Results for this RIGHT 2 OR 3 VIEWS AM CDT of right hip, procedur e are in initial encounter the result s (HCC) section. POCT GLUCOSE Routine 11/27/2021 12:08 Results for this (FINGERSTICK) PM CDT procedure are in the results section. TELEMETRY WAVEFORM Routine 11/27/2021 7:05 AM CDT POCT GLUCOSE Routine 11/27/2021 7:05 Results for this (FINGERSTICK) AM CDT procedure are in the results section. BASIC METABOLIC PANEL Routine 11/27/2021 5:32 Res ults for this AM CDT procedure are i n the results section. CBC Routine 11/27/2021 5:32 Results for this AM CDT procedure are i n the results section. TELEMETRY WAVEFORM Routine 11/26/2021 11:14 PM CDT TELEMETRY WAVEFORM Routine 11/26/2021 11:14 PM CDT TELEMETRY WAVEFORM Routine 11/26/2021 11:14 PM CDT POCT GLUCOSE Routine 11/26/2021 10:44 Results for this (FINGERSTICK) PM CDT procedure are in the results section. POCT GLUCOSE Routine 11/26/2021 3:57 Results for this (FINGERSTICK) PM CDT procedure are in the results section. TELEMETRY WAVEFORM Routine 11/26/2021 2:48 PM CDT POCT GLUCOSE Routine 11/26/2021 11:45 Results for this (FINGERSTICK) AM CDT procedure are in the results section. TELEMETRY WAVEFORM Routine 11/26/2021 7:04 AM CDT POCT GLUCOSE Routine 11/26/2021 6:02 Results for this (FINGERSTICK) AM CDT procedure are in the results section. BASIC METABOLIC PANEL Routine 11/26/2021 5:21 Res ults for this AM CDT procedure are i n the results section. CBC Routine 11/26/2021 5:21 Results for this AM CDT procedure are i n the results section. POCT GLUCOSE Routine 11/25/2021 9:04 Results for this (FINGERSTICK) PM CDT procedure are in the results section. TELEMETRY WAVEFORM Routine 11/25/2021 4:00 PM CDT POCT GLUCOSE Routine 11/25/2021 3:49 Results for this (FINGERSTICK) PM CDT procedure are in the results section. POCT GLUCOSE Routine 11/25/2021 10:30 Results for this (FINGERSTICK) AM CDT procedure are in the results section. BASIC METABOLIC PANEL Routine 11/25/2021 10:01 Re sults for this AM CDT procedure are i n the results section. CBC Routine 11/25/2021 10:01 Results for this AM CDT procedure are i n the results section. TELEMETRY WAVEFORM Routine 11/25/2021 7:56 AM CDT POCT GLUCOSE Routine 11/25/2021 6:02 Results for this (FINGERSTICK) AM CDT procedure are in the results section. TELEMETRY WAVEFORM Routine 11/24/2021 11:40 PM CDT POCT GLUCOSE Routine 11/24/2021 8:58 Results for this (FINGERSTICK) PM CDT procedure are in the results section. POCT GLUCOSE Routine 11/24/2021 3:56 Results for this (FINGERSTICK) PM CDT procedure are in the results section. TELEMETRY WAVEFORM Routine 11/24/2021 2:42 PM CDT TELEMETRY WAVEFORM Routine 11/24/2021 2:42 PM CDT POCT GLUCOSE Routine 11/24/2021 11:52 Results for this (FINGERSTICK) AM CDT procedure are in the results section. TELEMETRY WAVEFORM Routine 11/24/2021 8:30 AM CDT TELEMETRY WAVEFORM Routine 11/24/2021 8:30 AM CDT POCT GLUCOSE Routine 11/24/2021 6:41 Results for this (FINGERSTICK) AM CDT procedure are in the results section. MORPHOLOGY REVIEW Routine 11/24/2021 5:02 Results for this AM CDT procedure are i n the results section. CBC WITH AUTO Routine 11/24/2021 5:02 Results for this DIFFERENTIAL AM CDT procedure are i n the results section. RENAL FUNCTION PANEL Routine 11/24/2021 5:02 Resu lts for this AM CDT procedure are i n the results section. CBC WITH AUTO DIFF Routine 11/24/2021 5:02 Result s for this AM CDT procedure are i n the results section. TELEMETRY WAVEFORM Routine 11/23/2021 11:16 PM CDT TELEMETRY WAVEFORM Routine 11/23/2021 11:16 PM CDT POCT GLUCOSE Routine 11/23/2021 10:35 Results for this (FINGERSTICK) PM CDT procedure are in the results section. POCT GLUCOSE Routine 11/23/2021 5:11 Results for this (FINGERSTICK) PM CDT procedure are in the results section. TELEMETRY WAVEFORM Routine 11/23/2021 3:00 PM CDT TELEMETRY WAVEFORM Routine 11/23/2021 1:57 PM CDT POCT GLUCOSE Routine 11/23/2021 11:28 Results for this (FINGERSTICK) AM CDT procedure are in the results section. TELEMETRY WAVEFORM Routine 11/23/2021 8:08 AM CDT MORPHOLOGY REVIEW Routine 11/23/2021 6:50 Results for this AM CDT procedure are i n the results section. CBC WITH AUTO Routine 11/23/2021 6:50 Results for this DIFFERENTIAL AM CDT procedure are i n the results section. CBC WITH AUTO DIFF Routine 11/23/2021 6:50 Result s for this AM CDT procedure are i n the results section. POCT GLUCOSE Routine 11/23/2021 6:45 Results for this (FINGERSTICK) AM CDT procedure are in the results section. TELEMETRY WAVEFORM Routine 11/23/2021 12:07 AM CDT POCT GLUCOSE Routine 11/22/2021 10:31 Results for this (FINGERSTICK) PM CDT procedure are in the results section. POCT GLUCOSE Routine 11/22/2021 4:35 Results for this (FINGERSTICK) PM CDT procedure are in the results section. TELEMETRY WAVEFORM Routine 11/22/2021 4:16 PM CDT POCT GLUCOSE Routine 11/22/2021 10:53 Results for this (FINGERSTICK) AM CDT procedure are in the results section. TELEMETRY WAVEFORM Routine 11/22/2021 7:31 AM CDT CBC WITH AUTO Routine 11/22/2021 6:55 Results for this DIFFERENTIAL AM CDT procedure are i n the results section. MAGNESIUM Routine 11/22/2021 6:55 Results for this AM CDT procedure are i n the results section. RENAL FUNCTION PANEL Routine 11/22/2021 6:55 Resu lts for this AM CDT procedure are i n the results section. CBC WITH AUTO DIFF Routine 11/22/2021 6:55 Result s for this AM CDT procedure are i n the results section. POCT GLUCOSE Routine 11/22/2021 6:22 Results for this (FINGERSTICK) AM CDT procedure are in the results section. TELEMETRY WAVEFORM Routine 11/22/2021 1:19 AM CDT POCT GLUCOSE Routine 11/21/2021 9:58 Results for this (FINGERSTICK) PM CDT procedure are in the results section. POCT GLUCOSE Routine 11/21/2021 3:40 Results for this (FINGERSTICK) PM CDT procedure are in the results section. TELEMETRY WAVEFORM Routine 11/21/2021 2:26 PM CDT POCT GLUCOSE Routine 11/21/2021 11:26 Results for this (FINGERSTICK) AM CDT procedure are in the results section. TELEMETRY WAVEFORM Routine 11/21/2021 7:37 AM CDT POCT GLUCOSE Routine 11/21/2021 6:37 Results for this (FINGERSTICK) AM CDT procedure are in the results section. CBC WITH AUTO Routine 11/21/2021 5:47 Results for this DIFFERENTIAL AM CDT procedure are i n the results section. CBC WITH AUTO DIFF Routine 11/21/2021 5:47 Result s for this AM CDT procedure are i n the results section. MAGNESIUM Routine 11/21/2021 5:47 Results for this AM CDT procedure are i n the results section. RENAL FUNCTION PANEL Routine 11/21/2021 5:47 Resu lts for this AM CDT procedure are i n the results section. TELEMETRY WAVEFORM Routine 11/20/2021 11:28 PM CDT POCT GLUCOSE Routine 11/20/2021 10:27 Results for this (FINGERSTICK) PM CDT procedure are in the results section. ANESTHESIA BLOCK LOWER Routine 11/20/2021 6:40 Re sults for this EXTREMITY PM CDT procedure are i n the results section. POCT GLUCOSE Routine 11/20/2021 6:39 Results for this (FINGERSTICK) PM CDT procedure are in the results section. INCENTIVE SPIROMETRY Routine 11/20/2021 6:36 RT PM CDT XR PELVIS 1 OR 2 VIEWS Routine 11/20/2021 6:16 Closed dislocat ion Results for this PM CDT of right hip, procedure are in initial encounter the result s (HCC) section. CBC STAT 11/20/2021 5:17 Results for this PM CDT procedure are i n the results section. BASIC METABOLIC PANEL STAT 11/20/2021 5:17 Res ults for this PM CDT procedure are i n the results section. ANES PERFORMED US Routine 11/20/2021 5:05 Results for this REGIONAL/INVASIVE PM CDT procedure are in the results section. POCT GLUCOSE Routine 11/20/2021 4:52 Results for this (FINGERSTICK) PM CDT procedure are in the results section. AFB CULTURE W/ STAIN Routine 11/20/2021 3:01 Dislocation of hi p Results for this PM CDT joint prosthesis, procedure are in initial encounter the result s (HCC) section. DEEP WOUND/TISSUE Routine 11/20/2021 3:01 Dislocation of hip R esults for this CULTURE W/ STAIN PM CDT joint prosthesis, proced ure are in initial encounter the result s (HCC) section. ANAEROBIC CULTURE Routine 11/20/2021 3:01 Dislocation of hip R esults for this PM CDT joint prosthesis, procedure are in initial encounter the result s (HCC) section. SURGICAL PATHOLOGY Routine 11/20/2021 2:42 Dislocation of hip Results for this SPECIMEN PM CDT joint prosthesis, procedure are in initial encounter the result s (HCC) section. DEEP WOUND/TISSUE Routine 11/20/2021 2:39 Dislocation of hip R esults for this CULTURE W/ STAIN PM CDT joint prosthesis, proced ure are in initial encounter the result s (HCC) section. ANAEROBIC CULTURE Routine 11/20/2021 2:39 Dislocation of hip R esults for this PM CDT joint prosthesis, procedure are in initial encounter the result s (HCC) section. REVISE TOTAL HIP 11/20/2021 1:26 Dislocation of hip PM CDT joint prosthesis, initial encounter (HCC) POCT GLUCOSE Routine 11/20/2021 12:45 Results for this (FINGERSTICK) PM CDT procedure are in the results section. POCT GLUCOSE Routine 11/20/2021 10:59 Results for this (FINGERSTICK) AM CDT procedure are in the results section. POCT GLUCOSE Routine 11/20/2021 7:03 Results for this (FINGERSTICK) AM CDT procedure are in the results section. CBC WITH AUTO Routine 11/20/2021 6:19 Results for this DIFFERENTIAL AM CDT procedure are i n the results section. CBC WITH AUTO DIFF Routine 11/20/2021 6:19 Result s for this AM CDT procedure are i n the results section. MAGNESIUM Routine 11/20/2021 6:19 Results for this AM CDT procedure are i n the results section. RENAL FUNCTION PANEL Routine 11/20/2021 6:19 Resu lts for this AM CDT procedure are i n the results section. TELEMETRY WAVEFORM Routine 11/19/2021 11:42 PM CDT POCT GLUCOSE Routine 11/19/2021 8:08 Results for this (FINGERSTICK) PM CDT procedure are in the results section. HEMOGLOBIN A1C Routine 11/19/2021 6:16 Results fo r this PM CDT procedure are i n the results section. POCT GLUCOSE Routine 11/19/2021 4:09 Results for this (FINGERSTICK) PM CDT procedure are in the results section. POCT GLUCOSE Routine 11/19/2021 10:47 Results for this (FINGERSTICK) AM CDT procedure are in the results section. POCT GLUCOSE Routine 11/19/2021 7:41 Results for this (FINGERSTICK) AM CDT procedure are in the results section. SEDIMENTATION RATE STAT 11/19/2021 6:29 Result s for this AM CDT procedure are i n the results section. C-REACTIVE PROTEIN STAT 11/19/2021 6:29 Result s for this AM CDT procedure are i n the results section. URINALYSIS WITH Routine 11/19/2021 5:04 Results f or this MICROSCOPIC AM CDT procedure are i n the results section. VITAMIN D 25 HYDROXY Routine 11/19/2021 4:01 Resu lts for this AM CDT procedure are i n the results section. MAGNESIUM Routine 11/19/2021 4:01 Results for this AM CDT procedure are i n the results section. BASIC METABOLIC PANEL Routine 11/19/2021 4:01 Res ults for this AM CDT procedure are i n the results section. CBC Routine 11/19/2021 4:01 Results for this AM CDT procedure are i n the results section. POCT GLUCOSE Routine 11/19/2021 1:15 Results for this (FINGERSTICK) AM CDT procedure are in the results section. XR CHEST 1 VIEW Expedited 11/19/2021 12:28 Closed dislocation Re sults for this AM CDT of right hip, procedure are in initial encounter the result s (HCC) section. EKG - ADULT Routine 11/19/2021 12:03 Results for this AM CDT procedure are i n the results section. HC CORTNEY TEST Routine 11/18/2021 11:38 Results f or this INDIRECT QUAL PM CDT procedure are in the results section. PROTIME-INR Routine 11/18/2021 11:38 Results for this PM CDT procedure are i n the results section. XR KNEE RIGHT 3 VIEWS STAT 11/18/2021 6:27 Res ults for this PM CDT procedure are i n the results section. XR HIP WWO PELVIS STAT 11/18/2021 6:27 Results for this RIGHT 2 OR 3 VIEWS PM CDT procedure are in the results section. XR FEMUR RIGHT MIN 2 STAT 11/18/2021 6:27 Resu lts for this VIEWS PM CDT procedure are i n the results section. CBC WITH AUTO STAT 11/18/2021 4:58 Results for this DIFFERENTIAL PM CDT procedure are i n the results section. PHOSPHORUS STAT 11/18/2021 4:58 Results for this PM CDT procedure are i n the results section. MAGNESIUM STAT 11/18/2021 4:58 Results for this PM CDT procedure are i n the results section. CBC WITH AUTO DIFF STAT 11/18/2021 4:58 Result s for this PM CDT procedure are i n the results section. BASIC METABOLIC PANEL STAT 11/18/2021 4:58 Res ults for this PM CDT procedure are i n the results section. ER SCREENING FOR Routine 11/18/2021 4:58 Results for this HEPATITIS C PM CDT procedure are i n the results section. from Last 3 Months Results XR Hip WWO Pelvis Right 2 or 3 Views (01/08/2022 11:39 AM CDT)Only the most recent of2 resultswithin the time period is included. Anatomical Region Laterality Modality Hip, Pelvis Digital [...] ATTENDING RADIOLOGIST: Malcom Munroe Blas Armendariz MD IM DIAGNOSTIC IMAGING ORDER BABAK (ABNORMAL) POCT GLUCOSE(FINGERSTICK)-Interfaced (11/27/2021 12:08 PM CDT)Only the most recent of37 resultswithin the time period is included. [facility] gist Method Time Signature POCT 142 (H) 74 - 106 11/27/2021 [facility] FINGERSTICK mg/dL 12:15 PM CDT DEPARTMENT OF GLUCOSE PATHOLOGY POCT PERFORMED Manager Of Warehouse Id: 11/27/2021 [facility] [place] [place] [id number] - 12:15 PM CDT DEPARTMENT OF [place], PATHOLOGY [employer] Specimen Anatomical Collection Method Collection Time Receive d Time (Source) Location / / Volume Laterality Blood 11/27/2021 12:08 11/27/2021 PM CDT 12:15 PM CDT Deisy Bazan MD POCT ORDERABLES - INTERFACED Performing Organization Address City/State/ZIP Code Phon e Number [facility] DEPARTMENT OF PATHOLOGY [address] [place], [address] [address] Telemetry Waveform (11/27/2021 7:05 AM CDT) Specimen (Source) Anatomical Collection Method Collection Time Re ceived Time Location / / Volume Laterality 11/27/2021 7:05 AM CDT Waveforms Interface CV CARDIOECG ORDERABLES Performing Organization Address City/State/ZIP Code Phon e Number TELEWAVE (ABNORMAL) CBC (11/27/2021 5:32 AM CDT)Only the most recent of5 resultswithin the time period is included. [facility] gist Method Time Signature White Blood Cell 7.0 4.0 - 11/27/2021 [facility] Count 10.0 6:11 AM CDT DEPARTMENT OF TH/cmm PATHOLOGY Red Blood Cell 3.14 (L) 3.80 - 11/27/2021 [facility] Count 4.80 6:11 AM CDT DEPARTMENT OF M/cmm PATHOLOGY Hemoglobin 8.7 (L) 12.0 - 11/27/2021 [facility] 15.0 g/dL 6:11 AM CDT DEPARTMENT OF PATHOLOGY Hematocrit 28.8 (L) 36.0 - 11/27/2021 [facility] 46.0 % 6:11 AM CDT DEPARTMENT OF PATHOLOGY Mean Corpuscular 91.7 83.0 - 11/27/2021 [facility] Volume 101.0 fl 6:11 AM CDT DEPARTMENT OF PATHOLOGY MCH 27.7 27.0 - 11/27/2021 [facility] 32.0 pg 6:11 AM CDT DEPARTMENT OF PATHOLOGY Mean Corpuscular 30.2 (L) 31.5 - 11/27/2021 [facility] Hemoglobin Conc 34.5 g/dL 6:11 AM CDT DEPARTMENT O F PATHOLOGY Red Cell 14.7 12.0 - 11/27/2021 [facility] Distribution 15.0 6:11 AM CDT DEPARTMENT OF Width PATHOLOGY RDW - SD 49.5 (H) 36.4 - 11/27/2021 [facility] 46.3 fL 6:11 AM CDT DEPARTMENT OF PATHOLOGY Platelet Count 302 150 - 400 11/27/2021 [facility] TH/cmm 6:11 AM T DEPARTMENT OF PATHOLOGY Mean Platelet 9.7 9.4 - 11/27/2021 [facility] Volume 12.3 fl 6:11 AM T DEPARTMENT OF PATHOLOGY Specimen Anatomical Collection Method / Collection Time Recei jackelyn Time (Source) Location / Volume Laterality Blood Lab Venipuncture / 11/27/2021 5:32 2021 5:54 Unknown AM CDT AM CDT Narrative [facility] DEPARTMENT OF PATHOLOGY - 6:11 AM CDT If the anticoagulant ratio is incorrect when collecting an EDTA specimen, the hematocrit, mean cell volume (MCV), and mean corpuscular hemoglobin concentration (MCHC) may be inaccurate. ??It is recomm ended to fill the tube to the stated tube volume by vacutainer method. Deisy eBni SILVA LAB BLOOD ORDERABLES Performing Organization Address City/State/ZIP Code Phon e Number [facility] DEPARTMENT OF PATHOLOGY [address] [id number] [place] [address] (ABNORMAL) Basic metabolic panel (11/27/2021 5:32 AM CDT)Only the most recent of 6 resultswithin the time period is included. Analysis Performed At Patho logist Time Signature Sodium 137 136 - 145 11/27/2021 [facility] mmol/L 6:23 AM CDT DEPARTMENT OF PATHOLOGY Potassium 4.4 3.4 - 4.5 11/27/2021 [facility] mmol/L 6:23 AM T DEPARTMENT OF PATHOLOGY Chloride 101 98 - 107 11/27/2021 [facility] mmol/L 6:23 AM CDT DEPARTMENT OF PATHOLOGY CO2 29 22 - 29 11/27/2021 [facility] mmol/L 6:23 AM CDT DEPARTMENT OF PATHOLOGY Anion Gap 7.0 6.0 - 14.0 11/27/2021 [facility] mmol/L 6:23 AM T DEPARTMENT OF PATHOLOGY BUN 10.4 8.0 - 23.0 11/27/2021 [facility] mg/dL 6:23 AM CDT DEPARTMENT OF PATHOLOGY Calcium 8.3 (L) 8.6 - 10.2 11/27/2021 [facility] mg/dL 6:23 AM CDT DEPARTMENT OF PATHOLOGY Glucose 106 74 - 106 11/27/2021 [facility] mg/dL 6:23 AM T DEPARTMENT OF PATHOLOGY Creatinine 0.82 0.51 - 11/27/2021 [facility] Serum/WB 0.95 mg/dL 6:23 AM CDT DEPARTMENT OF PATHOLOGY Comment: Elevated levels of N-acetylcyst eine and H-gtgldk-q-benzoquinone imine can cause falsely decreased values. eGFR (from >=60 ml/min/1.73m?? 11/27/2021 6:23 AM [facility] DEPARTMENT OF Creatinine) CDT PATHOLOGY Specimen Anatomical Collection Method / Collection Time Recei jackelyn Time (Source) Location / Volume Laterality Blood Lab Venipuncture / 11/27/2021 5:32 2021 5:55 Unknown AM CDT AM CDT Narrative [facility] DEPARTMENT OF PATHOLOGY - 6:23 AM CDT AVERAGE GFR FOR 60-69 YEARS OLD: 85 ml/min/1.73 m?? CHRONIC KIDNEY DISEASE: <60 ml/min/1.73 m?? KIDNEY FAILURE: <15 ml/min/1.73 m?? The use of nonindexed eGFR values (mL/mi n) should be considered for drug dosing decisions. Calculated using the CKD-EPI 2020 formul a for IDMS-traceable methods. Deisy Beni SIVLA LAB BLOOD ORDERABLES Performing Organization Address City/State/ZIP Code Phon e Number [facility] DEPARTMENT OF PATHOLOGY [address] [place] [address] Street Telemetry Waveform (11/26/2021 11:14 PM CDT) Specimen (Source) Anatomical Collection Method Collection Time Re ceived Time Location / / Volume Laterality 11/26/2021 11:14 PM CDT Waveforms Interface CV CARDIOECG ORDERABLES Performing Organization Address City/State/ZIP Code Phon e Number [facility] Telemetry Waveform (11/26/2021 11:14 PM CDT) Specimen (Source) Anatomical Collection Method Collection Time Re ceived Time Location / / Volume Laterality 11/26/2021 11:14 PM CDT Waveforms Interface CV CARDIOECG ORDERABLES Performing Organization Address City/State/ZIP Code Phon e Number [facility] Telemetry Waveform (11/26/2021 11:14 PM CDT) Specimen (Source) Anatomical Collection Method Collection Time Re ceived Time Location / / Volume Laterality 11/26/2021 11:14 PM CDT Waveforms Interface CV CARDIOECG ORDERABLES Performing Organization Address City/State/ZIP Code Phon e Number [facility] Telemetry Waveform (11/26/2021 2:48 PM CDT) Specimen (Source) Anatomical Collection Method Collection Time Re ceived Time Location / / Volume Laterality 11/26/2021 2:48 PM CDT Waveforms Interface CV CARDIOECG ORDERABLES Performing Organization Address City/State/ZIP Code Phon e Number [facility] Telemetry Waveform (11/26/2021 7:04 AM CDT) Specimen (Source) Anatomical Collection Method Collection Time Re ceived Time Location / / Volume Laterality 11/26/2021 7:04 AM CDT Waveforms Interface CV CARDIOECG ORDERABLES Performing Organization Address City/State/ZIP Code Phon e Number [facility] Telemetry Waveform (11/25/2021 4:00 PM CDT) Specimen (Source) Anatomical Collection Method Collection Time Re ceived Time Location / / Volume Laterality 11/25/2021 4:00 PM CDT Waveforms Interface CV CARDIOECG ORDERABLES Performing Organization Address City/State/ZIP Code Phon e Number [facility] Telemetry Waveform (11/25/2021 7:56 AM CDT) Specimen (Source) Anatomical Collection Method Collection Time Re ceived Time Location / / Volume Laterality 11/25/2021 7:56 AM CDT Waveforms Interface CV CARDIOECG ORDERABLES Performing Organization Address City/State/ZIP Code Phon e Number [facility] Telemetry Waveform (11/24/2021 11:40 PM CDT) Specimen (Source) Anatomical Collection Method Collection Time Re ceived Time Location / / Volume Laterality 11/24/2021 11:40 PM CDT Waveforms Interface CV CARDIOECG ORDERABLES Performing Organization Address City/State/ZIP Code Phon e Number [facility] Telemetry Waveform (11/24/2021 2:42 PM CDT) Specimen (Source) Anatomical Collection Method Collection Time Re ceived Time Location / / Volume Laterality 11/24/2021 2:42 PM CDT Waveforms Interface CV CARDIOECG ORDERABLES Performing Organization Address City/State/ZIP Code Phon e Number [facility] Telemetry Waveform (11/24/2021 2:42 PM CDT) Specimen (Source) Anatomical Collection Method Collection Time Re ceived Time Location / / Volume Laterality 11/24/2021 2:42 PM CDT Waveforms Interface CV CARDIOECG ORDERABLES Performing Organization Address City/[facility]/ZIP Code Phon e Number [facility] Telemetry Waveform (11/24/2021 8:30 AM CDT) Specimen (Source) Anatomical Collection Method Collection Time Re ceived Time Location / / Volume Laterality 11/24/2021 8:30 AM CDT Waveforms Interface CV CARDIOECG ORDERABLES Performing Organization Address City/State/ZIP Code Phon e Number [facility] Telemetry Waveform (11/24/2021 8:30 AM CDT) Specimen (Source) Anatomical Collection Method Collection Time Re ceived Time Location / / Volume Laterality 11/24/2021 8:30 AM CDT Waveforms Interface MD RICKS CARDIOECG ORDERABLES Performing Organization Address City/[facility]/ZIP Code Phon e Number [facility] (ABNORMAL) CBC with Auto Differential (11/24/2021 5:02 AM CDT)Only the most recent of6 resultswithin the time period is included. [facility] Method Time Signature White Blood Cell 6.0 4.0 - 11/24/2021 [facility] Count 10.0 6:24 AM CDT DEPARTMENT OF [facility] Red Blood Cell 3.10 (L) 3.80 - 11/24/2021 [facility] Count 4.80 6:24 AM CDT DEPARTMENT OF [facility] Hemoglobin 8.7 (L) 12.0 - 11/24/2021 [facility] 15.0 g/dL 6:24 AM CDT DEPARTMENT OF PATHOLOGY Hematocrit 29.4 (L) 36.0 - 11/24/2021 [facility] 46.0 % 6:24 AM CDT DEPARTMENT OF PATHOLOGY Mean Corpuscular 94.8 83.0 - 11/24/2021 [facility] Volume 101.0 fl 6:24 AM CDT DEPARTMENT OF PATHOLOGY MCH 28.1 27.0 - 11/24/2021 [facility] 32.0 pg 6:24 AM CDT DEPARTMENT OF PATHOLOGY Mean Corpuscular 29.6 (L) 31.5 - 11/24/2021 [facility] Hemoglobin Conc 34.5 g/dL 6:24 AM CDT DEPARTMENT O F PATHOLOGY Red Cell 14.8 12.0 - 11/24/2021 [facility] Distribution 15.0 6:24 AM CDT DEPARTMENT OF Width PATHOLOGY RDW - SD 51.6 (H) 36.4 - 11/24/2021 [facility] 46.3 fL 6:24 AM CDT DEPARTMENT OF PATHOLOGY Platelet Count 205 150 - 400 11/24/2021 [facility] TH/cmm 6:24 AM CDT DEPARTMENT OF PATHOLOGY Mean Platelet 10.7 9.4 - 11/24/2021 [facility] Volume 12.3 fl 6:24 AM CDT DEPARTMENT OF PATHOLOGY Neutrophils 64.0 44.0 - 11/24/2021 [facility] 65.0 % 6:24 AM CDT DEPARTMENT OF PATHOLOGY Lymphocytes 24.5 (L) 25.0 - 11/24/2021 [facility] Relative 46.0 % 6:24 AM CDT DEPARTMENT OF PATHOLOGY Monocytes 8.2 1.0 - 11/24/2021 [facility] Relative 10.0 % 6:24 AM CDT DEPARTMENT OF PATHOLOGY Eosinophils 2.7 0.0 - 9.0 11/24/2021 [facility] Relative % 6:24 AM CDT DEPARTMENT OF PATHOLOGY Basophils 0.3 0.0 - 4.0 11/24/2021 [facility] Relative % 6:24 AM CDT DEPARTMENT OF PATHOLOGY Immature 0.3 0.0 - 0.6 11/24/2021 [facility] Granulocytes % 6:24 AM CDT DEPARTMENT OF PATHOLOGY Comment: Immature Granulocytes are the c ombined total of Promyelocytes, Myelocytes, and Metamyelocytes. Nucleated RBC/Auto 0.0 <=0.0 /100WBC 11/24/2021 6:24 A M [facility] DEPARTMENT OF Diff CDT PATHOLOGY Neutrophils 3.84 1.80 - 7.80 11/24/2021 6:24 AM [facility] DE PARTMENT OF Absolute/Auto Diff TH/cmm CDT PATHOLOGY Lymphocyte 1.47 1.00 - 3.00 11/24/2021 6:24 AM [facility] DEP ARTMENT OF Absolute/Auto Diff TH/cmm CDT PATHOLOGY Monocytes 0.49 0.30 - 1.00 11/24/2021 6:24 AM [facility] DEPA RTMENT OF Absolute/Auto Diff TH/cmm CDT PATHOLOGY Eosinophil 0.16 0.00 - 0.50 11/24/2021 6:24 AM [facility] DEP ARTMENT OF Absolute/Auto Diff TH/cmm CDT PATHOLOGY Basophil Absolute/Auto 0.02 0.00 - 0.10 11/24/2021 6:24 AM [facility] DEPARTMENT OF Diff TH/cmm CDT PATHOLOGY Immature Granulocytes 0.02 0.00 - 0.10 11/24/2021 6:24 AM [facility] DEPARTMENT OF Absolute/Auto Diff TH/cmm CDT PATHOLOGY NRBC Absolute/Auto 0.00 TH/cmm 11/24/2021 6:24 AM [facility] DEPARTMENT OF Diff CDT PATHOLOGY Specimen Anatomical Collection Method / Collection Time Recei jackelyn Time (Source) Location / Volume Laterality Blood Lab Venipuncture / 11/24/2021 5:02 2021 6:09 Unknown AM CDT AM CDT Narrative [facility] DEPARTMENT OF PATHOLOGY - 6:24 AM CDT If the anticoagulant ratio is incorrect when collecting an EDTA specimen, the hematocrit, mean cell volume (MCV), and mean corpuscular hemoglobin concentration (MCHC) may be inaccurate. ??It is recomm ended to fill the tube to the stated tube volume by vacutainer method. Misbah Pino MD LAB ONLY COLLECT PERFORMABLE S Performing Organization Address City/State/ZIP Code Phon e Number [facility] DEPARTMENT OF PATHOLOGY [address] [place] [address] Street (ABNORMAL) MORPHOLOGY REVIEW (11/24/2021 5:02 AM CDT)Only the most recent of2 resultswithin the time period is included. [facility] Method Time Signature RBC Morphology abnormal (A) Normal 11/24/2021 [facility] 6:59 AM CDT DEPARTMENT OF PATHOLOGY Anisocytosis Moderate 11/24/2021 [facility] 6:59 AM CDT DEPARTMENT OF PATHOLOGY Macrocytes Moderate 11/24/2021 [facility] 6:59 AM CDT DEPARTMENT OF PATHOLOGY Plt Sufficiency Normal 11/24/2021 [facility] 6:59 AM CDT DEPARTMENT OF PATHOLOGY Specimen Anatomical Collection Method / Collection Time Recei jackelyn Time (Source) Location / Volume Laterality Blood Lab Venipuncture / 11/24/2021 5:02 2021 6:09 Unknown AM CDT AM CDT Misbah Pino MD LAB ONLY COLLECT PERFORMABLE S Performing Organization Address City/State/ZIP Code Phon e Number [facility] DEPARTMENT OF PATHOLOGY [address] [facility], [address] [address] (ABNORMAL) Renal function panel (11/24/2021 5:02 AM CDT)Only the most recent of4 resultswithin the time period is included. P athologist Signature Albumin 3.2 (L) 3.5 - 5.5 11/24/2021 [facility] DEPARTMENT g/dL 6:39 AM CDT OF PATHOLOGY Calcium 8.6 8.6 - 10.2 11/24/2021 [facility] DEPARTMENT mg/dL 6:39 AM CDT OF PATHOLOGY Phosphorus 3.9 2.7 - 4.5 11/24/2021 [facility] DEPARTMENT mg/dL 6:39 AM CDT OF PATHOLOGY BUN 11.8 8.0 - 23.0 11/24/2021 [facility] DEPARTMENT mg/dL 6:39 AM CDT OF PATHOLOGY Sodium 139 136 - 145 11/24/2021 [facility] DEPARTMENT mmol/L 6:39 AM CDT OF PATHOLOGY Potassium 4.5 3.4 - 4.5 11/24/2021 [facility] DEPARTMENT mmol/L 6:39 AM CDT OF PATHOLOGY Comment: Please interpret results with c aution due to presence of hemolysis. Chloride 103 98 - 107 mmol/L 11/24/2021 6:39 AM [facility] DEPARTMENT OF CDT PATHOLOGY CO2 26 22 - 29 mmol/L 11/24/2021 6:39 AM [facility] D EPARTMENT OF CDT PATHOLOGY Anion Gap 10.0 6.0 - 14.0 11/24/2021 6:39 AM [facility] DEPAR TMENT OF mmol/L CDT PATHOLOGY Glucose 137 (H) 74 - 106 mg/dL 11/24/2021 6:39 AM [facility] D EPARTMENT OF CDT PATHOLOGY Creatinine Serum/WB 0.82 0.51 - 0.95 11/24/2021 6:39 AM [facility] DEPARTMENT OF mg/dL CDT PATHOLOGY Comment: Elevated levels of N-acetylcyst eine and V-wxmcib-n-benzoquinone imine can cause falsely decreased values. eGFR (from >=60 ml/min/1.73m?? 11/24/2021 6:39 AM [facility] DEPARTMENT OF Creatinine) CDT PATHOLOGY Specimen Anatomical Collection Method / Collection Time Recei jackelyn Time (Source) Location / Volume Laterality Blood Lab Venipuncture / 11/24/2021 5:02 2021 6:09 Unknown AM CDT AM CDT Narrative [facility] DEPARTMENT OF PATHOLOGY - 6:39 AM CDT AVERAGE GFR FOR 60-69 YEARS OLD: 85 ml/min/1.73 m?? CHRONIC KIDNEY DISEASE: <60 ml/min/1.73 m?? KIDNEY FAILURE: <15 ml/min/1.73 m?? The use of nonindexed eGFR values (mL/mi n) should be considered for drug dosing decisions. Calculated using the CKD-EPI 2020 formul a for IDMS-traceable methods. Misbah Pino MD LAB BLOOD ORDERABLES Performing Organization Address City/State/ZIP Code Phon e Number [facility] DEPARTMENT OF PATHOLOGY [address] [place] [address] [address] Telemetry Waveform (11/23/2021 11:16 PM CDT) Specimen (Source) Anatomical Collection Method Collection Time Re ceived Time Location / / Volume Laterality 11/23/2021 11:16 PM CDT Waveforms Interface CV CARDIOECG ORDERABLES Performing Organization Address City/State/ZIP Code Phon e Number [facility] Telemetry Waveform (11/23/2021 11:16 PM CDT) Specimen (Source) Anatomical Collection Method Collection Time Re ceived Time Location / / Volume Laterality 11/23/2021 11:16 PM CDT Waveforms Interface CV CARDIOECG ORDERABLES Performing Organization Address City/State/ZIP Code Phon e Number [facility] Telemetry Waveform (11/23/2021 3:00 PM CDT) Specimen (Source) Anatomical Collection Method Collection Time Re ceived Time Location / / Volume Laterality 11/23/2021 3:00 PM CDT Waveforms Interface CV CARDIOECG ORDERABLES Performing Organization Address City/[facility]/ZIP Code Phon e Number [facility] Telemetry Waveform (11/23/2021 1:57 PM CDT) Specimen (Source) Anatomical Collection Method Collection Time Re ceived Time Location / / Volume Laterality 11/23/2021 1:57 PM CDT Waveforms Interface MD CV CARDIOECG ORDERABLES Performing Organization Address City/State/ZIP Code Phon e Number [facility] Telemetry Waveform (11/23/2021 8:08 AM CDT) Specimen (Source) Anatomical Collection Method Collection Time Re ceived Time Location / / Volume Laterality 11/23/2021 8:08 AM CDT Waveforms Interface MD CV CARDIOECG ORDERABLES Performing Organization Address City/State/ZIP Code Phon e Number [facility] Telemetry Waveform (11/23/2021 12:07 AM CDT) Specimen (Source) Anatomical Collection Method Collection Time Re ceived Time Location / / Volume Laterality 11/23/2021 12:07 AM CDT Waveforms Interface CV CARDIOECG ORDERABLES Performing Organization Address City/[facility]/ZIP Code Phon e Number [facility] Telemetry Waveform (11/22/2021 4:16 PM CDT) Specimen (Source) Anatomical Collection Method Collection Time Re ceived Time Location / / Volume Laterality 11/22/2021 4:16 PM CDT Waveforms Interface CV CARDIOECG ORDERABLES Performing Organization Address City/[facility]/ZIP Code Phon e Number [facility] Telemetry Waveform (11/22/2021 7:31 AM CDT) Specimen (Source) Anatomical Collection Method Collection Time Re ceived Time Location / / Volume Laterality 11/22/2021 7:31 AM CDT Waveforms Interface CV CARDIOECG ORDERABLES Performing Organization Address [facility]/ZIP Code Phon e Number TE[facility] (ABNORMAL) Magnesium (11/22/2021 6:55 AM CDT)Only the most recent of5 results within the time period is included. P athologist Signature Magnesium 1.5 (L) 1.7 - 2.5 11/22/2021 [facility] DEPARTMENT mg/dL 7:51 AM CDT OF PATHOLOGY Specimen Anatomical Collection Method / Collection Time Recei jackelyn Time (Source) Location / Volume Laterality Blood Lab Venipuncture / 11/22/2021 6:55 2021 7:24 Unknown AM CDT AM CDT Raysa Prajapati MD LAB BLOOD ORDERABLES Performing Organization Address City/State/ZIP Code Phon e Number [facility] DEPARTMENT OF PATHOLOGY [address] [place] [place], [address] [address] Telemetry Waveform (11/22/2021 1:19 AM CDT) Specimen (Source) Anatomical Collection Method Collection Time Re ceived Time Location / / Volume Laterality 11/22/2021 1:19 AM CDT Waveforms Interface MD RICKS CARDIOECG ORDERABLES Performing Organization Address City/[facility] Code Phon e Number TELE[facility] Telemetry Waveform (11/21/2021 2:26 PM CDT) Specimen (Source) Anatomical Collection Method Collection Time Re ceived Time Location / / Volume Laterality 11/21/2021 2:26 PM CDT Waveforms Interface CV CARDIOECG ORDERABLES Performing Organization Address City/[facility]/ZIP Code Phon e Number TELE[facility] Telemetry Waveform (11/21/2021 7:37 AM CDT) Specimen (Source) Anatomical Collection Method Collection Time Re ceived Time Location / / Volume Laterality 11/21/2021 7:37 AM CDT Waveforms Interface MD RICKS CARDIOECG ORDERABLES Performing Organization Address City/[facility]/ZIP Code Phon e Number TE[facility] Telemetry Waveform (11/20/2021 11:28 PM CDT) Specimen (Source) Anatomical Collection Method Collection Time Re ceived Time Location / / Volume Laterality 11/20/2021 11:28 PM CDT Waveforms Interface MD RICKS CARDIOECG ORDERABLES Performing Organization Address [facility] Phon e Number TELE[facility]AVE Lower Extremity Block (11/20/2021 6:40 PM CDT) Narrative Angelo Lai MD - 6:40 PM CDT Angelo Lai MD ? 12/01/2021 ??7:24 AM Lower Extremity Block: Other (See Comme nt) Block Type Comments: МАРИНА Laterality: right Patient location during procedure: Post- Op Reason for Block: Post-op Block Requested By: Primary Surgeon Staffing Attending Anesthesiologist: Angelo Lai MD, Medically Directed Resident: Vega Wood MD [...] during the entirety of the procedure. ANGELO LAI MD Jacob Martini MD [place] ANESTHESIA XR Pelvis 1 or 2 Views (11/20/2021 6:16 PM CDT) Anatomical Region Laterality Modality Pelvis Computed Radiography Specimen (Source) Anatomical Collection Method Collection Time Re ceived Time Location / / Volume Laterality 11/20/2021 6:24 PM CDT Impressions 11/20/2021 6:32 PM CDT IMPRESSION: Appropriate alignment of the right hip a rthroplasty, status post surgical reduction. RESIDENT RADIOLOGIST: Jorge Becker ATTENDING RADIOLOGIST: Malcom Munroe I have personally reviewed the image(s) and the resident's interpretations, performed any necessary editing, and agree with the findings of this report. Narrative 11/20/2021 6:32 PM CDT RADIOLOGIC EXAM: XR PELVIS 1 OR 2 VIEWS DATE AND TIME OF EXAMINATION: 11/20/2021 5:55 PM CLINICAL HISTORY: Post Op ?? COMPARISON: 11/18/2021 TECHNIQUE: XR PELVIS 1 OR 2 VIEWS FINDINGS: Long femoral stem total hip arthroplasty . Interval reduction of the dislocated right hip arthroplasty with femoral component now appropriately aligned within the acetabular cup. Postsurgical gas in the right lateral hip. Procedure Note Pedro Mckeon MD - 11/20/2021F ormatting of this note might be different from the original. RADIOLOGIC EXAM: XR PELVIS 1 OR 2 VIEWS DATE AND TIME OF EXAMINATION: 11/20/2021 5:55 PM CLINICAL HISTORY: Post Op COMPARISON: 11/18/2021 TECHNIQUE: XR PELVIS 1 OR 2 VIEWS FINDINGS: Long femoral stem total hip arthroplasty . Interval reduction of the dislocated right hip arthroplasty with femoral component now appropriately aligned within the acetabular cup. Postsurgical gas in the right lateral hip. IMPRESSION: Appropriate alignment of the right hip a rthroplasty, status post surgical reduction. RESIDENT RADIOLOGIST: Jorge Becker ATTENDING RADIOLOGIST: Malcom Munroe. I have personally reviewed the image(s) and the resident's interpretations, performed any necessary editing, and agree with the findings of this report. Raysa Prajapati MD G DIAGNOSTIC IMAGING ORDER BABAK ANES Performed [facility]/Invasive (11/20/2021 5:05 PM CDT) Specimen (Source) Anatomical Location Collection Method / Collectio n Time Received Time / Laterality Volume Narrative Radiology, Silent Weeder - 11/20/2021 5:05 PM CDT This procedure was performed during a surgical case. Please see the anesthetic note for the f ormal interpretation. Raysa Prajapati MD [facility] AFB culture w/ Stain (11/20/2021 3:01 PM CDT) [facility] Method Time Signature Culture, AFB No Acid Fast 01/08/2022 [facility] bacilli 5:46 PM CDT DEPARTMENT OF isolated PATHOLOGY AFB Smear No acid fast 01/08/2022 [facility] bacilli seen on 5:46 PM CDT DEPARTMENT O F [facility] PATHOLOGY ine direct smear fluorescent stain. Comment: Interpret No acid fast bacilli seen on smear with extreme caution. A negative result does not rule out the pr esence of an infectious agent. Culture pending final result. Specimen Anatomical Collection Method Collection Time Receive d Time (Source) Location / / Volume Laterality Tissue BODY TISSUE 11/20/2021 3:01 PM 2 3:47 STRUCTURE / CDT PM CDT Unknown Comment: right hip synovium Blas Armendariz MD MICROBIOLOGY - GENERAL ORDER BABAK Performing Organization Address City/State/ZIP Code Phon e Number [facility] DEPARTMENT OF PATHOLOGY [address] [place] [address] Street Deep Wound/Tissue Culture with stain (11/20/2021 3:01 PM CDT)Only the most recent of2 resultswithin the time period is included. [facility] Method Time Signature Culture, Deep No Growth 11/23/2021 [facility] Wound after 72 9:47 AM CDT DEPARTMENT OF hours PATHOLOGY Gram Stain No WBC's 11/23/2021 [facility] Result seen. No 9:47 AM CDT DEPARTMENT OF organisms PATHOLOGY seen. Specimen Anatomical Collection Method Collection Time Receive d Time (Source) Location / / Volume Laterality Tissue BODY TISSUE 11/20/2021 3:01 PM 2 3:47 STRUCTURE / CDT PM CDT Unknown Comment: right hip synovium Blas Armendariz MD MICROBIOLOGY - GENERAL ORDER BABAK Performing Organization Address City/[facility]/ZIP Code Phon e Number [facility] DEPARTMENT OF PATHOLOGY [address] [place] [address] Levels Anaerobic culture (11/20/2021 3:01 PM CDT)Only the most recent of2 resultswithin the time period is included. [facility] gist Method Time [facility] Culture, No anaerobes 11/24/2021 [facility] Anaerobe isolated 5:24 PM CDT DEPARTMENT OF PATHOLOGY Specimen Anatomical Collection Method Collection Time Receive d Time (Source) Location / / Volume Laterality Tissue BODY TISSUE 11/20/2021 3:01 PM 2 3:47 STRUCTURE / CDT PM CDT Unknown Comment: right hip synovium Blas Armendariz MD MICROBIOLOGY - GENERAL ORDER BABAK Performing Organization Address City/[facility]/ZIP Code Phon e Number [facility] DEPARTMENT OF PATHOLOGY [address] [place] [address] Levels Surgical Pathology Specimen (11/20/2021 2:42 PM CDT) Component Value Ref Test Analysis Performed At [facility] gist Range Method Time Signature Case Report Surgical Pathology ?Case: [id number] ? 11/24/2021 [facility] Authorizing Provider: ??Jenni Armendariz MD ? Collected: ? 11/20/2021 1442 ? 9:36 AM DEPARTM ENT Ordering Location: ? [facility] ADULT OR ?Received: ?11/21/2021 0853 ? CDT OF PATHOLOGY Pathologist: ? Sue Musa MD ? Specimen: ?Hip, Right, R ight Hip ? Final A. SOFT TISSUE, HIP, RIGHT, EXCISION: [facility] Electronically Diagnosis - Fragments of synovium and dense fibrous tissue with reactive changes, no acute inflammation identified. 9:36 AM DEPARTMENT signed by CDT OF PATHOLOGY Sue Musa MD on I certify the accuracy of th is report on the basis of my personal observations and interpretation. Microscopic examination performed on all specimens except gross only. 11/24/2021 at 9:36 AM Clinical Right Hip 11/24/2021 [facility] Information 9:36 AM DEPARTMENT CDT OF PATHOLOGY Gross A. Hip, Right. 11/24/2021 [facility] Description Specimen A is received in [facility] labeled with patient's name, medical record number, ? right hip? and consists of an aggregate of taylor, fibrous tissue fragments (4.2 x 3.1 x 0.7 cm) which is divided and submitted entirely in A 1-A 4. (AI) 9:36 AM DEPARTMENT CDT OF PATHOLOGY Additional 11/24/2021 [facility] Electron ically Information Unless specified otherwise a ho, the quality of the H&E and any other special stains performed at [facility] Pathology [facility] (AFB, PAS, immunostains, etc) is sati 9:36 AM DEPARTMENT signed by sfactory, and any internal o r external positive and negative controls react appropriately. CDT OF PATHOLOGY Sue Musa MD on Any immunohistochemical, imm unofluorescence, or in-situ hybridization tests included in this report that were performed at [facility] were developed and their performance c 11/24/2021 at [facility] determined by [facility]. They have not been cleared or approved by the U.S. Food and Drug Administration (FDA). The FDA has determined that such clearance o 9:36 AM r approval is not necessary. These tests are used for clinical purposes. They should not be regarded as investigational or for research. The [facility] is certified under t he Clinical Laboratory Impro vement Act of 1988 (CLIA) as qualified to perform high complexity clinical laboratory testing. Specimen Anatomical Collection Method Collection Time Receive d Time (Source) Location / / Volume Laterality Tissue RIGHT HIP REGION 11/20/2021 2:42 PM 11/21 8:53 STRUCTURE / CDT AM CDT Unknown Comment: Right Hip Blas Armendariz MD PATHOLOGY/CYTOLOGY ORDERABLE S Performing Organization Address City/State/ZIP Code Phon e Number [facility] DEPARTMENT OF PATHOLOGY [address] [place], [place] [id number] Levels Telemetry Waveform (11/19/2021 11:42 PM CDT) Specimen (Source) Anatomical Collection Method Collection Time Re ceived Time Location / / Volume Laterality 11/19/2021 11:42 PM CDT Waveforms Interface CV CARDIOECG ORDERABLES Performing Organization Address City/State/ZIP Code Phon e Number TELEWAVE (ABNORMAL) Hemoglobin A1c (11/19/2021 6:16 PM CDT) Analysis Performed At Patho logist Time Signature Hemoglobin A1C 7.1 (H) 4.2 - 6.0 11/19/2021 [facility] % 7:36 PM CDT DEPARTMENT OF PATHOLOGY Comment: For evaluation of glycemic control in kn own diabetic non- adults: ?A1C <7% lower or higher target A1C values maybe appropriate for individual patients. For the diagnosis of diabetes mellitus: A1C >/=6.5% Increased risk for diabetes mellitus: ?? A1C 5.7-6.4% Mean Bld Glu Estimate 157 mg/dL 11/19/2021 7:36 PM CDT [facility] DEPARTMENT OF PATHOLOGY Comment: The estimated mean (average) gl ucose is a calculated value based on the hemoglobin A1C result. A diabetic patien t who has come under good control in recent weeks may still have a high value. The c onverse is true for a diabetic patient previously under good control who now is poorly controlled. Specimen Anatomical Collection Method / Collection Time Recei jackelyn Time (Source) Location / Volume Laterality Blood Lab Venipuncture / 11/19/2021 6:16 2021 7:18 Unknown PM CDT PM CDT Raysa Prajapati MD LAB BLOOD ORDERABLES Performing Organization Address City/[facility] Phon e Number [facility] DEPARTMENT OF PATHOLOGY [address] [place] [address], [place] [address] Levels (ABNORMAL) Sedimentation rate (11/19/2021 6:29 AM CDT) Patholo gist Method Time Signature Erythrocyte 60.0 (H) 2.0 - 11/19/2021 [facility] Sedimentation 39.0 7:14 AM CDT DEPARTMENT OF Rate mm/hr PATHOLOGY Specimen Anatomical Collection Method Collection Time Receive d Time (Source) Location / / Volume Laterality Blood Collected during 11/19/2021 6:29 AM 11/19 6:39 insertion of IV / CDT AM CDT Unknown Narrative [facility] DEPARTMENT OF PATHOLOGY - 7:14 AM CDT If the anticoagulant ratio is incorrect when collecting an EDTA specimen, erythrocyte sedimentation rate may be erroneous. ??I t is recommended to fill the tube to the stated tube volume by vacutainer method. Raysa Prajapati MD LAB BLOOD ORDERABLES Performing Organization Address City/[facility] Phon e Number [facility] DEPARTMENT OF PATHOLOGY [address] [place] [address], [place] [address] Levels (ABNORMAL) C-reactive protein (11/19/2021 6:29 AM CDT) Analysis Performed At Patho logist Time Signature C-Reactive 1.73 (H) 0.00 - 11/19/2021 [facility] Protein 0.50 mg/dL 7:18 AM CDT DEPARTMENT OF PATHOLOGY Specimen Anatomical Collection Method Collection Time Receive d Time (Source) Location / / Volume Laterality Blood Collected during 11/19/2021 6:29 AM 11/19 6:39 insertion of IV / CDT AM CDT Unknown Narrative [facility] DEPARTMENT OF PATHOLOGY - 7:18 AM CDT Significantly decreased CRP values may b e obtained from samples taken from patients who have been treated with carboxypenici llins. Raysa Prajapati MD LAB BLOOD ORDERABLES Performing Organization Address City/State/ZIP Code Phon e Number [facility] DEPARTMENT OF PATHOLOGY [address] [facility] [place], [address] Levels (ABNORMAL) Urinalysis with microscopic (11/19/2021 5:04 AM CDT) [facility] Method Time Signature Color UA Yellow Colorless, 11/19/2021 [facility] Light-Yello 5:27 AM CDT DEPARTMENT OF w, Yellow, PATHOLOGY Straw, Pale Yellow Clarity UA Slightly Clear, 11/19/2021 [facility] Cloudy Cloudy, 5:27 AM CDT DEPARTMENT OF Hazy, PATHOLOGY Slightly Cloudy, Slightly Hazy, Lightly Turbid, Other Leukocytes UA 11/19/2021 [facility] 5:27 AM CDT DEPARTMENT OF PATHOLOGY Protein UA 50.0 (A) Negative 11/19/2021 [facility] mg/dL 5:27 AM CDT DEPARTMENT OF PATHOLOGY Nitrite UA Negative Negative 11/19/2021 [facility] 5:27 AM CDT DEPARTMENT OF PATHOLOGY Blood UA 11/19/2021 [facility] 5:27 AM CDT DEPARTMENT OF PATHOLOGY Glucose Negative Negative 11/19/2021 [facility] mg/dL 5:27 AM CDT DEPARTMENT OF PATHOLOGY Ketones UA Trace (A) Negative 11/19/2021 [facility] mg/dL 5:27 AM CDT DEPARTMENT OF PATHOLOGY Ph UA 6.0 5.0 - 7.5 11/19/2021 [facility] 5:27 AM CDT DEPARTMENT OF PATHOLOGY Specific [place] 1.028 1.003 - 11/19/2021 [facility] UA 1.035 5:27 AM CDT DEPARTMENT OF PATHOLOGY Bilirubin UA Negative Negative 11/19/2021 [facility] mg/dL 5:27 AM CDT DEPARTMENT OF PATHOLOGY Urobilinogen UA Normal Normal 11/19/2021 [facility] mg/dL 5:27 AM CDT DEPARTMENT OF PATHOLOGY Bacteria UA None Absent, 11/19/2021 [facility] None /HPF 5:27 AM CDT DEPARTMENT OF PATHOLOGY Mucous UA Many (A) Rare, 11/19/2021 [facility] Occasional, 5:27 AM CDT DEPARTMENT OF None /LPF PATHOLOGY WBC UA 7.0 (H) 0.0 - 4.0 11/19/2021 [facility] /HPF 5:27 AM CDT DEPARTMENT OF PATHOLOGY RBC UA 79.0 (H) 0.0 - 4.0 11/19/2021 [facility] /HPF 5:27 AM CDT DEPARTMENT OF PATHOLOGY Squamous 4.0 (H) 0.0 - 3.0 11/19/2021 [facility] Epithelial UA /HPF 5:27 AM CDT DEPARTMENT OF PATHOLOGY Comment: The presence of these items may indicate contamination or an improperly collected specimen. Ca Oxalate Alicja UA Occasional Rare, Occasional, 11/19/2021 5:27 [facility] DEPARTMENT None /HPF AM CDT OF PATHOLOGY Leukocytes UA 25.0 (A) Negative Melvin/uL 11/19/2021 5:27 [facility] DEPARTMENT MELVIN/UL AM CDT OF PATHOLOGY Comment: Not all white cells will demons trate leukocyte esterase activity. Blood UA, mg/dL 0.5 (A) Negative, 0.03 11/19/2021 5:27 AM [facility] DEPARTMENT OF mg/dL CDT PATHOLOGY Specimen Anatomical Collection Method Collection Time Receive d Time (Source) Location / / Volume Laterality Urine URINE / Unknown Non-blood 11/19/2021 5:04 AM 2021 5:09 collection / CDT AM CDT Unknown Narrative [facility] DEPARTMENT OF PATHOLOGY - 5:27 AM CDT NOTE: If delivery of a specimen to the l aboratory is unavoidably delayed, arrangements must be made for refrigerat ion of the specimen to maintain integrity of cells and formed elements. ??Interpret r esults with caution if specimen is more than 1 - 2 hours old. Rasheeda Fernandes Jr., MD URINE ORDERABLES Performing Organization Address City/State/ZIP Code Phon e Number [facility] DEPARTMENT OF PATHOLOGY [address] [place] [address] Levels Vitamin D (11/19/2021 4:01 AM CDT) P athologist Signature Vit D, 29.9 6.6 - 49.0 11/19/2021 [facility] DEPARTMENT 25-Hydroxy ng/mL 11:00 AM CDT OF PATHOLOGY Specimen Anatomical Collection Method Collection Time Receive d Time (Source) Location / / Volume Laterality Blood Collected during 11/19/2021 4:01 AM 11/19 4:31 insertion of IV / CDT AM CDT Unknown Narrative [facility] DEPARTMENT OF PATHOLOGY - 2 11:00 AM CDT <10 ng/mL ??(severe deficiency) 10-19 ng/mL ??(mild to moderate deficien cy) 20-50 ng/mL (optimum) 51-80 ng/mL ??(increased risk of hyperca lciuria) >80 ng/mL ??(possible toxicity) Reference ranges represent clinical deci xavi values based on the 2011 IOM report rather than population-based values. ??Population-based ranges vary widely with season, geographic location, ethnic backg round and age, and are therefore of limi nikos clinical use. Lito et al. Journal of Clinical Endocrinology Metabolism, 2011. 96(1):53-58. ?? Raysa Prajapati MD LAB BLOOD ORDERABLES Performing Organization Address City/State/ZIP Code Phon e Number [facility] DEPARTMENT OF PATHOLOGY [address] [place] [address] Levels XR Chest 1 View (11/19/2021 12:28 AM CDT) Anatomical Region Laterality Modality Chest Computed Radiography Specimen (Source) Anatomical Collection Method Collection Time Re ceived Time Location / / Volume Laterality 11/19/2021 3:13 AM CDT Impressions 11/19/2021 4:24 AM CDT IMPRESSION: No acute cardiopulmonary findings are ap preciated by portable radiograph. RESIDENT RADIOLOGIST: Laureen Brand MD ATTENDING RADIOLOGIST: Vern Negrete D.O. I have personally reviewed the image(s) and the resident's interpretations, performed any necessary editing, and agree with the findings of this report. Narrative 11/19/2021 4:24 AM CDT RADIOLOGIC EXAMINATION(S): XR CHEST 1 VIEW DATE AND TIME OF EXAMINATION: 11/19/2021 12:26 AM CLINICAL HISTORY: Cough COMPARISON: Chest Radiograph ?? 0 TECHNIQUE: XR CHEST 1 VIEW ? FINDINGS: Cardiac silhouette is within normal limi ts for size. No consolidation, pleural effusion or pneumothorax is appreciated. Partially included right shoulder arthroplasty. Surgical clips project over the right axilla. Procedure Note Sabino Negrete MD - 11/19/2021Form atting of this note might be different from the original. RADIOLOGIC EXAMINATION(S): XR CHEST 1 EW DATE AND TIME OF EXAMINATION: 11/19/2021 12:26 AM CLINICAL HISTORY: Cough COMPARISON: Chest Radiograph 04/17/2020 TECHNIQUE: XR CHEST 1 VIEW FINDINGS: Cardiac silhouette is within normal limi ts for size. No consolidation, pleural effusion or pneumothorax is appreciated. Partially included right shoulder arthroplasty. Surgical clips project over the right axilla. IMPRESSION: No acute cardiopulmonary findings are ap preciated by portable radiograph. RESIDENT RADIOLOGIST: Laureen Brand MD ATTENDING RADIOLOGIST: Vern Negrete D.O. I have personally reviewed the image(s) and the resident's interpretations, performed any necessary editing, and agree with the findings of this report. Raysa Prajapati MD IMG DIAGNOSTIC IMAGING ORDER BABAK EKG - Adult (11/19/2021 12:03 AM CDT) Specimen (Source) Anatomical Collection Method Collection Time Re ceived Time Location / / Volume Laterality 11/19/2021 12:03 AM CDT Narrative CARDIOLOGY CARDIOECG-ORDERS - 11/19/2021 5:40 AM CDT Sinus rhythm Compared to ECG 04/10/2020 09:11:35 No significant change Electronically signed by Rasheeda nicolas 11-19-2021 5:40:51 CDT ? AED ? Test Date: ?2021-11-19 Pat Name: ? BOGDAN TAMIR ?Department: ?Room: ? [facility] [place] [facility] Gender: ? 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 [id number] : ?[id number] ? Requested By: RASHEEDA MARCUS JR W Order Number: [id number] ?Reading MD: ?? Rasheeda Barbosa ? Measurements Intervals ?[place] ? Rate: ? 76 ? P: ?15 W[place]: ? 178 ?QRS: ?-5 QRSD: ? 110 ?T: ?32 QT: ? 404 ? QTc: ?455 ? Interpretive Statements Sinus rhythm Compared to ECG 04/10/2020 09:11:35 No significant change Electronically signed by Rasheeda nicolas 11-19-2021 5:40:51 CDT Rasheeda Fernandes Jr., MD CV CARDIOECG ORDERABLES Performing Organization Address City/State/ZIP Code Phon e Number CARDIOLOGY CARDIOECG-ORDERS Protime-INR (11/18/2021 11:38 PM CDT) athologist Signature Prothrombin Time 12.3 10.3 - 11/19/2021 [facility] 13.5 sec 12:37 AM CDT DEPARTMENT OF PATHOLOGY INR 1.03 0.80 - 11/19/2021 [facility] 1.10 12:37 AM CDT DEPARTMENT OF PATHOLOGY Comment: NOTE: DO NOT USE FOR BLEEDING A SSESSMENT. The INR should be used to control outpatients on stable warfarin therapy f or at least two weeks. The INR is a therapeutic drug-monitoring measurement, and is NOT intended for use in patients with a vitamin K deficiency or liver disease. Specimen Anatomical Collection Method Collection Time Receive d Time (Source) Location / / Volume Laterality Blood Collected during 11/18/2021 11:38 022 insertion of IV / PM CDT 11:57 PM C DT Unknown Rasheeda Fernandes Jr., MD LAB BLOOD ORDERABLES Performing Organization Address City/State/ZIP Code Phon e Number [facility] DEPARTMENT OF PATHOLOGY [address] [facility], [place] [phone] Street Type and screen (11/18/2021 11:38 PM CDT) [facility] gist Method Time Signature ABO/RH TYPE A Positive 11/19/2021 [facility] 12:57 AM CDT BLOOD BANK LAB Antibody Negative 11/19/2021 [facility] Screen 12:57 AM CDT BLOOD BANK LAB Specimen Anatomical Collection Method Collection Time Receive d Time (Source) Location / / Volume Laterality Blood Collected during 11/18/2021 11:38 022 insertion of IV / PM CDT 12:00 AM C DT Unknown Rasheeda Fernandes Jr., MD BLOOD BANK TEST ORDERABLES Performing Organization Address City/State/ZIP Code Phon e Number [facility] BLOOD BANK LAB [address] [facility], [place] [address] XR Knee Right 3 Views (11/18/2021 6:27 PM CDT) Anatomical Region Laterality Modality Knee Computed Radiography Specimen (Source) Anatomical Collection Method Collection Time Re ceived Time Location / / Volume Laterality 11/18/2021 6:30 PM CDT Impressions 11/18/2021 6:46 PM CDT IMPRESSION: Dislocation of the right hip arthroplast y. No acute fracture or dislocation of the distal femur or knee. ?? RESIDENT RADIOLOGIST: Jim Butler M.D. ATTENDING RADIOLOGIST: Malcom Munroe I have personally reviewed the image(s) and the resident's interpretations, performed any necessary editing, and agree with the findings of this report. Narrative 11/18/2021 6:46 PM CDT RADIOLOGIC EXAM: XR KNEE RIGHT 3 VIEWS, XR HIP WWO PELVIS RIGHT 2 OR 3 VIEWS, XR FEMUR RIGHT MIN 2 VIEWS DATE AND TIME OF EXAMINATION: 11/18/2021 6:27 PM CLINICAL HISTORY: Trauma ?? COMPARISON: Femur/hip radiographs TECHNIQUE: XR KNEE RIGHT 3 VIEWS, XR HIP WWO PELVIS RIGHT 2 OR 3 VIEWS, XR FEMUR RIGHT MIN 2 VIEWS FINDINGS: RIGHT HIP: Superolateral dislocation of the right h ip arthroplasty. Heterotopic ossification about the right hip. RIGHT FEMUR: No acute fracture. Proximal femoral pros thesis is in expected position relative to the tribal distal femur. RIGHT KNEE: No acute fracture or dislocation. Modera te osteoarthritis. Procedure Note Pedro Mckeon MD - 11/18/2021F ormatting of this note might be different from the original. RADIOLOGIC EXAM: XR KNEE RIGHT 3 VIEWS, XR HIP WWO PELVIS RIGHT 2 OR 3 VIEWS, XR FEMUR RIGHT MIN 2 VIEWS DATE AND TIME OF EXAMINATION: 11/18/2021 6:27 PM CLINICAL HISTORY: Trauma COMPARISON: Femur/hip radiographs TECHNIQUE: XR KNEE RIGHT 3 VIEWS, XR HIP WWO PELVIS RIGHT 2 OR 3 VIEWS, XR FEMUR RIGHT MIN 2 VIEWS FINDINGS: RIGHT HIP: Superolateral dislocation of the right h ip arthroplasty. Heterotopic ossification about the right hip. RIGHT FEMUR: No acute fracture. Proximal femoral pros thesis is in expected position relative to the tribal distal femur. RIGHT KNEE: No acute fracture or dislocation. Modera te osteoarthritis. IMPRESSION: Dislocation of the right hip arthroplast y. No acute fracture or dislocation of the distal femur or knee. RESIDENT RADIOLOGIST: Jim Butler M.D. ATTENDING RADIOLOGIST: Pedro Linda, M .D. I have personally reviewed the image(s) and the resident's interpretations, performed any necessary editing, and agree with the findings of this report. Rasheeda Fernandes Jr., MD IMG DIAGNOSTIC IMAGING ORDER BABAK XR Femur Right Min 2 Views (11/18/2021 6:27 PM CDT) Anatomical Region Laterality Modality Thigh Computed Radiography Specimen (Source) Anatomical Collection Method Collection Time Re ceived Time Location / / Volume Laterality 11/18/2021 6:30 PM CDT Impressions 11/18/2021 6:46 PM CDT IMPRESSION: Dislocation of the right hip arthroplast y. No acute fracture or dislocation of the distal femur or knee. ?? RESIDENT RADIOLOGIST: Jim Butler M.D. ATTENDING RADIOLOGIST: Malcom Munroe I have personally reviewed the image(s) and the resident's interpretations, performed any necessary editing, and agree with the findings of this report. Narrative 11/18/2021 6:46 PM CDT RADIOLOGIC EXAM: XR KNEE RIGHT 3 VIEWS, XR HIP WWO PELVIS RIGHT 2 OR 3 VIEWS, XR FEMUR RIGHT MIN 2 VIEWS DATE AND TIME OF EXAMINATION: 11/18/2021 6:27 PM CLINICAL HISTORY: Trauma ?? COMPARISON: Femur/hip radiographs TECHNIQUE: XR KNEE RIGHT 3 VIEWS, XR HIP WWO PELVIS RIGHT 2 OR 3 VIEWS, XR FEMUR RIGHT MIN 2 VIEWS FINDINGS: RIGHT HIP: Superolateral dislocation of the right h ip arthroplasty. Heterotopic ossification about the right hip. RIGHT FEMUR: No acute fracture. Proximal femoral pros thesis is in expected position relative to the tribal distal femur. RIGHT KNEE: No acute fracture or dislocation. Modera te osteoarthritis. Procedure Note Pedro Mckeon MD - 11/18/2021F ormatting of this note might be different from the original. RADIOLOGIC EXAM: XR KNEE RIGHT 3 VIEWS, XR HIP WWO PELVIS RIGHT 2 OR 3 VIEWS, XR FEMUR RIGHT MIN 2 VIEWS DATE AND TIME OF EXAMINATION: 11/18/2021 6:27 PM CLINICAL HISTORY: Trauma COMPARISON: Femur/hip radiographs TECHNIQUE: XR KNEE RIGHT 3 VIEWS, XR HIP WWO PELVIS RIGHT 2 OR 3 VIEWS, XR FEMUR RIGHT MIN 2 VIEWS FINDINGS: RIGHT HIP: Superolateral dislocation of the right h ip arthroplasty. Heterotopic ossification about the right hip. RIGHT FEMUR: No acute fracture. Proximal femoral pros thesis is in expected position relative to the tribal distal femur. RIGHT KNEE: No acute fracture or dislocation. Modera te osteoarthritis. IMPRESSION: Dislocation of the right hip arthroplast y. No acute fracture or dislocation of the distal femur or knee. RESIDENT RADIOLOGIST: Jim Butler M.D. ATTENDING RADIOLOGIST: Malcom Munroe. I have personally reviewed the image(s) and the resident's interpretations, performed any necessary editing, and agree with the findings of this report. Rasheeda Fernandes Jr., MD IMG DIAGNOSTIC IMAGING ORDER BABAK ED Screening for Hepatitis C (11/18/2021 4:58 PM CDT) Analysis Performed At Patho logist Time Signature Hepatitis C Not Not DORAD[place] 11/18/2021 [facility] Antibody Detected Detected PRUNE WASHER 5:52 PM CDT DEPARTMENT OF I2000 PATHOLOGY Comment: Antibodies to Hepatitis C Virus not detected; does not exclude the possibility of exposure to Hepatitis C. Specimen Anatomical Collection Method Collection Time Receive d Time (Source) Location / / Volume Laterality Blood Collected during 11/18/2021 4:58 PM 11/18 5:05 insertion of IV / CDT PM CDT Unknown Rasheeda Fernandes Jr., MD LAB BLOOD ORDERABLES Performing Organization Address City/State/ZIP Code Phon e Number [facility] DEPARTMENT OF PATHOLOGY [address] [place] [address], [place] [id number] Street (ABNORMAL) Phosphorus (11/18/2021 4:58 PM CDT) P athologist Signature Phosphorus 4.9 (H) 2.7 - 4.5 11/18/2021 [facility] DEPARTMENT mg/dL 5:48 PM CDT OF PATHOLOGY Specimen Anatomical Collection Method Collection Time Receive d Time (Source) Location / / Volume Laterality Blood Collected during 11/18/2021 4:58 PM 11/18 5:10 insertion of IV / CDT PM CDT Unknown Rasheeda Fernandes Jr., MD LAB BLOOD ORDERABLES Performing Organization Address City/State/ZIP Code Phon e Number [facility] DEPARTMENT OF PATHOLOGY [address] [place] [address], [place] [address] Levels from Last 3 Months Insurance Payer Benefit Plan / Subscriber ID Effective Dates Phone Addre ss Type Group MEDICARE MEDICARE PART [id number]-Presprema PO LOLA X [id number] Medicare A AND B nt MICHELE SCHROEDER [id number] [facility] [id number] 2013-Prese [phone] [id number] [place] [id number] Advance Directives For more information, please contact: [phone] (Available ) Latest Code Status on File Code Status Date Activated Date Inactivated Comments Full Code 11/20/2021 6:36 PM 11/30/2021 1:37 PM Full Code 11/18/2021 11:45 PM 11/20/2021 6:36 PM Full Code 04/15/2020 7:18 PM 04/21/2020 1:37 PM Full Code 04/15/2020 6:23 AM 04/15/2020 7:18 PM Care Teams [employer] Relationship Specialty Start Date End Date Anabelle Yost MD PCP - General Family Medicine 04/15/[address] [place] [address] SUITE [facility] [place], [address]
--- OUTSIDE RECORDS SUMMARY | 2022-02-01 20:28 | XMS_ITS | Encounter Summary ---
:1955 Author Organization [facility] Address [address] [place] [address], [address] Phone Care Team Providers Name Role Phone Anabelle Yost MD Primary Care Provider Reason for Referral Consultation (Routine) - Pending Review Specialty Diagnoses / Procedures Referred By Contact Refer red To Contact Orthopaedics Diagnoses Dislocation of hip joint prosthesis, initial encounter (HCC) Deisy Bazan MD [facility] [address] [facility] [address] [place] [address] [place] [address] Phone: Fax: Referral ID Status Reason Start Expiration Visits Visits Date Date Requested Authorized [id number] Pending Hospital 11/25/2021 11/26/2022 1 1 Review Follow up Question Answer How soon does this patient need this referral? 7 Days Comments 1 week with Ortho [facility] at the [facility] for [facility] check Reason for Visit Reason Comments Hip Pain Hip pain today. Hx of of hip replacement with multiple dislocations Auth/Cert Specialty Diagnoses / Procedures Referred By Contact Refer red To Contact Diagnoses Right hip subluxation, sequela Referral ID Status Reason Start Date Expiration Date Visits Requ ested Visits Authorized [id number] 1 1 Encounter Details Date Type Department Care Team Description 11/18/2021 - Hospital Encounter Andrew Hinton Jr., MD [address] [place] [address], [place] [address] Closed dislocation of right hip, initial encounter (HCC) (Primary Dx); 11/27/2021 ORTHOPAEDICS Raysa Prajapati MD [address] [place] [address], [place] [address] Right hip pain; [address] [place] [address] Misbah Pino MD [address] [place] [address], [place] [address] Dislocation of hip joint prosthesis, ini tial encounter (HCC) [place] [id number] Deisy Bazan MD [address] [place] [address], [address] [phone] Social History Tobacco Use Types Packs/Day Years [...] at Date Recorded Female 04/08/2020 10:19 AM [facility]RE [facility]TER COVID-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 documented as of this encounter Last Filed Vital Signs Vital Sign Reading Time Taken Comments Blood Pressure 120/67 11/27/2021 8:22 AM CDT Pulse 68 11/27/2021 8:22 AM CDT Temperature 36.8 ??C (98.2 ??F) 11/27/2021 8:22 AM CDT Respiratory Rate 18 11/27/2021 8:22 AM CDT Oxygen Saturation 95% 11/27/2021 8:22 AM CDT Inhaled Oxygen Concentration - - Weight 136.1 kg (300 lb) 11/19/2021 6:00 PM CDT Height 172.7 cm (5' 8) 11/19/2021 6:00 PM CDT Body Mass Index 45.61 11/19/2021 6:00 PM CDT documented in this encounter Discharge Summaries Deisy Bazan MD - 11/27/2021 12:35 PM CDT DISCHARGE SUMMARY Patient Name: Bogdan Garnett Age: 66 y.o. : 1955 Date: 11/27/2021 12:35 PM Admit date: 11/18/2021 Discharge date and time: 11/27/2021 Discharge diagnosis: Principal Problem: Closed dislocation of right hip (HCC) Active Problems: Morbid obesity with BMI of 45.0-49.9, adult (HCC) Diabetes mellitus (HCC) Hypertension Stage 3a chronic kidney disease, GFR 45-60 ml/min (HCC) Right hip subluxation, sequela Dislocation of hip prosthesis (HCC) Significant Imaging: EKG - Adult Result Date: 11/19/2021 Sinus rhythm Compared to ECG 04/10/2020 09:11:35 No significant change AED Test Date: 2021-11-19 Pat Name: BOGDAN GARNETT Department: Room: [place] [address] Gender: F Time Buyer: [id number] : 1955 Requested By: RASHEEDA Chavez Order Number: [id number] Reading MD: Rasheeda Barbosa Measurements Intervals [place] Rate: 76 P: 15 AK: 178 QRS: -5 QRSD: 110 T: 32 QT: 404 QTc: 455 Interpretive Statements Sinus rhythm Compared to ECG04/10/2020 09:11:35 No significant change XR Femur Right Min 2 Views Result Date: 11/18/2021 RADIOLOGIC EXAM: XR KNEE RIGHT 3 VIEWS, XR HIP WWO PELVIS RIGHT 2 OR 3 VIEWS, XR FEMUR RIGHT MIN 2 VIEWS DATE AND TIME OF EXAMINATION: 11/18/2021 6:27 PM CLINICAL HISTORY: Trauma COMPARISON: Femur/hip radiographs 03/06/2021 TECHNIQUE: XR KNEE RIGHT 3 VIEWS, XR HIP WWO PELVIS RIGHT 2 OR 3 VIEWS, XR FEMURRIGHT MIN 2 VIEWS FINDINGS: RIGHT HIP: Superolateral dislocation of the right hip arthroplasty. Heterotopic ossification about the right hip. RIGHT FEMUR: No acute fracture. Proximal femoral prosthesisis in expected position relative to the crow distal femur. RIGHT KNEE: No acute fracture or dislocation. Moderate osteoarthritis. IMPRESSION: Dislocation of the right hip arthroplasty. No acute fracture or dislocation of the distal femur or knee. RESIDENT RADIOLOGIST: Jim Butler M.D. ATTENDING RADIOLOGIST: Pedro Mckeon M.D.I have personally reviewed the image(s) and the resident's interpretations, performed any necessary editing, and agree with the findings of this report. XR Knee Right 3 Views Result Date: 11/18/2021 RADIOLOGIC EXAM: XR KNEE RIGHT 3 VIEWS, XR HIP WWO PELVIS RIGHT 2 OR 3 VIEWS, XR FEMUR RIGHT MIN 2 VIEWS DATE AND TIME OF EXAMINATION: 11/18/2021 6:27 PM CLINICAL HISTORY: Trauma COMPARISON: Femur/hip radiographs 03/06/2021 TECHNIQUE: XR KNEE RIGHT 3 VIEWS, XR HIP WWO PELVIS RIGHT 2 OR 3 VIEWS, XR FEMURRIGHT MIN 2 VIEWS FINDINGS: RIGHT HIP: Superolateral dislocation of the right hip arthroplasty. Heterotopic ossification about the right hip. RIGHT FEMUR: No acute fracture. Proximal femoral prosthesisis in expected position relative to the crow distal femur. RIGHT KNEE: No acute fracture or dislocation. Moderate osteoarthritis. IMPRESSION: Dislocation of the right hip arthroplasty. No acute fracture or dislocation of the distal femur or knee. RESIDENT RADIOLOGIST: Jim Butler M.D. ATTENDING RADIOLOGIST: Pedro Mckeon M.D.I have personally reviewed the image(s) and the resident's interpretations, performed any necessary editing, and agree with the findings of this report. XR Chest 1 View Result Date: 11/19/2021 RADIOLOGIC EXAMINATION(S): XR CHEST 1 VIEW DATE AND TIME OF EXAMINATION: 11/19/2021 12:26 AM CLINICALHISTORY: Cough COMPARISON: Chest Radiograph 04/17/2020 TECHNIQUE: XR CHEST 1 VIEW FINDINGS: Cardiac silhouette is within normal limits for size. No consolidation, pleural effusion or pneumothorax is appreciated. Partially included right shoulder arthroplasty. Surgical clips project over the right axilla. IMPRESSION: No acute cardiopulmonary findings are appreciated by portable radiograph. RESIDENT RADIOLOGIST: Laureen Brand MD ATTENDING RADIOLOGIST: Vern Negrete D.O. I have personally reviewed the image(s) and the resident's interpretations, performed any necessary editing, and agree with the findings of this report. XR Hip WWO Pelvis Right 2 or 3 Views Result Date: 11/18/2021 RADIOLOGIC EXAM: XR KNEE RIGHT 3 VIEWS, XR HIP WWO PELVIS RIGHT 2 OR 3 VIEWS, XR FEMUR RIGHT MIN 2 VIEWS DATE AND TIME OF EXAMINATION: 11/18/2021 6:27 PM CLINICAL HISTORY: Trauma COMPARISON: Femur/hip radiographs 03/06/2021 TECHNIQUE: XR KNEE RIGHT 3 VIEWS, XR HIP WWO PELVIS RIGHT 2 OR 3 VIEWS, XR FEMURRIGHT MIN 2 VIEWS FINDINGS: RIGHT HIP: Superolateral dislocation of the right hip arthroplasty. Heterotopic ossification about the right hip. RIGHT FEMUR: No acute fracture. Proximal femoral prosthesisis in expected position relative to the crow distal femur. RIGHT KNEE: No acute fracture or dislocation. Moderate osteoarthritis. IMPRESSION: Dislocation of the right hip arthroplasty. No acute fracture or dislocation of the distal femur or knee. RESIDENT RADIOLOGIST: Jim Butler M.D. ATTENDING RADIOLOGIST: Pedro Mckeon M.D.I have personally reviewed the image(s) and the resident's interpretations, performed any necessary editing, and agree with the findings of this report. HOSPITAL COURSE Per H&P:Brief History:66 F admitted w/ spontaneous dislocation of R prosthetic hip and underwentrevision surgery with Ortho. PT/OT was consulted who recommended acute rehab. Also followed patient.Did wound check.Prevena incisional vac placed was placed before discharge. Significant Discharge Physical Exam: BP 120/67 Pulse 68 Temp 98.2 ??F (36.8 ??C) (Oral) Resp 18 Ht 1.727 m (5' 8) Wt (!) 136.1kg (300 lb) SpO2 95% BMI 45.61 kg/m?? Intake/Output Summary (Last 24 hours) at 11/27/2021 4913 Last data filed at 11/26/2021 2018 Gross per 24 hour Intake 240 ml Output 0 ml Net 240 ml General appearance: alert, appears stated age, cooperative Head: Normocephalic, atraumatic Throat: tongue moist Neck: supple, symmetrical, trachea midline Lungs: clear to auscultation bilaterally. No wheeze or crepitations. Heart: regular rate and rhythm, S1, S2 normal, no murmur. Abdomen: soft, non-tender; bowel sounds normal; no masses, no organomegaly. Extremities: no cyanosis or edema Pulses: 2+ and symmetric Skin: color, texture, turgor normal. No rashes or lesions Neurologic: Answering questions appropriately. Moving all extremities. Labs at Discharge: Recent Labs Lab 11/23/21 0650 11/24/21 0502 11/25/21 1001 11/26/21 0521 11/27/21 0532 WBC 7.7 6.0 5.1 5.1 7.0 HGB 9.3* 8.7* 9.1* 9.0* 8.7* HCT 31.5* 29.4* 30.3* 29.4* 28.8* PLT 184 205 267 247 302 Recent Labs Lab 11/22/21 0655 11/24/21 0502 11/25/21 1001 11/26/21 0521 11/27/21 0532 NA 132* 139 139 140 137 K 4.2 4.5 4.3 4.6* 4.4 CL 97* 103 101 103 101 CO2 26 26 27 28 29 BUN 9.9 11.8 10.1 11.9 10.4 CREATININE 0.69 0.82 0.80 0.82 0.82 CALCIUM 8.1* 8.6 9.2 8.4* 8.3* Recent Labs Lab 11/20/21 1717 11/21/21 0547 11/22/21 0655 11/24/21 0502 11/25/21 1001 11/26/21 0521 11/27/21 0532 GLU 171* 186* 151* 137* 165* 130* 106 Recent Labs Lab 11/21/21 0547 11/22/21 0655 11/24/21 0502 PHOS 2.9 2.7 3.9 Recent Labs Lab 11/21/21 0547 11/22/21 0655 11/24/21 0502 ALBUMIN 3.3* 3.3* 3.2* No results for input(s): BNP in the last 168 hours. No results for input(s): INR, APTT in the last 168 hours. Invalid input(s): PT Pending Tests: None Disposition: Rehab Condition: Stable Activity: activity as tolerated Diet: Standard precautions Diet Regular Is inpatient Readmission Planned Within 30 days? No Patient Instructions: Follow-up with PCP in 1 week. Follow-up with ortho in 1 week. Allergies: Allergies Allergen Reactions ??? Compazine [Prochlorperazine Edisylate] Shortness Of Breath ??? Nitrofurantoin Rash and Other (See Comments) ??? Prochlorperazine Anaphylaxis and Other (See Comments) ??? Other Other (See Comments) ??? Vancomycin Other (See Comments) Unsure of drug or dose, but caused total renal failure Other reaction(s): Acute renal failure ??? Adhesive Rash Can tolerate paper tape ??? Mycin [Macrolides And Ketolides] Rash Medications: Current Discharge Medication List START taking these medications Details Enoxaparin Sodium (LOVENOX) injection Inject 40 mg into the skin twice daily Qty: 12 mL, Refills: 0 CONTINUE these medications which have CHANGED Details HYDROcodone-acetaminophen (NORCO) 5-325 MG per tablet Take 1-2 tablets by mouth every 4 hours as needed Max Daily Amount: 12 tablets Qty: 15 tablet, Refills: 0 CONTINUE these medications which have NOT CHANGED Details Ascorbic Acid (VITAMIN C) 1000 MG tablet Take 1,000 mg by mouth daily Calcium Carb-Cholecalciferol (CALCIUM-VITAMIN D) 500-200 MG-UNIT per tablet Take 1 tablet by mouth 2times daily with meals carvedilol (COREG) 12.5 mg tablet Take 12.5 mg by mouth 2 times daily with meals colesevelam (WELCHOL) 625 MG tablet Take 1,875 mg by mouth 2 times daily with meals furosemide (LASIX) 40 mg tablet Take 40 mg by mouth daily metFORMIN (GLUCOPHAGE) 500 mg tablet Take 500 mg by mouth daily with breakfast mirtazapine (REMERON) 30 MG tablet Take 30 mg by mouth nightly potassium chloride SA (K-DUR,KLOR-CON) 20 mEq tablet Take 20 mEq by mouth daily as needed rOPINIRole (REQUIP) 2 MG tablet Take 2 mg by mouth nightly Semaglutide, 1 MG/DOSE, (OZEMPIC, 1 MG/DOSE,) 4 MG/3ML Vicky Pen-inj Inject 4 mg into the skin once a week telmisartan-hydrochlorothiazide (MICARDIS HCT) 80-25 MG per tablet Take 1 tablet by mouth daily venlafaxine (EFFEXOR-XR) 150 mg 24 hr capsule Take 150 mg by mouth daily amoxicillin (AMOXIL) 500 mg capsule Take Amoxicillin 1gm 30 minutes prior to dental procedure Indications: Infection of the Skin and/or Soft Tissue Qty: 4 capsule, Refills: 0 aspirin 81 MG EC tablet Take 81 mg by mouth daily AZO-CRANBERRY PO Take by mouth benzonatate (TESSALON) 100 mg capsule Take 200 mg by mouth 3 times daily as needed Biotin 86834 MCG TABS Take 25,000 mcg by mouth clonazePAM (KLONOPIN) 0.5 mg tablet Take 0.5 mg by mouth 2 times daily Cranberry-Vitamin C-Probiotic (AZO CRANBERRY) 250-30 MG TABS as directed cyclobenzaprine (FLEXERIL) 10 mg tablet Take 10 mg by mouth 3 times daily as needed for Muscle spasms dicyclomine (BENTYL) 10 mg capsule Take 10 mg by mouth 4 times daily before meals and nightly DULoxetine (CYMBALTA) 60 mg capsule Take 60 mg by mouth daily ELDERBERRY PO Take 100 mg by mouth ferrous sulfate 325 (65 FE) MG EC tablet Take 325 mg by mouth fluconazole (DIFLUCAN) 100 MG tablet Take 100 mg by mouth daily Fluticasone Furoate-Vilanterol (BREO ELLIPTA IN) Inhale into the lungs Multiple Vitamin (MULTI-VITAMIN DAILY) TABS Take by mouth ondansetron (ZOFRAN) 4 mg tablet Take 4 mg by mouth every 8 hours as needed for Nausea Probiotic Product (CULTURELLE PROBIOTICS PO) as directed promethazine (PHENERGAN) 12.5 MG tablet Take 12.5 mg by mouth every 6 hours as needed for Nausea temazepam (RESTORIL) 30 MG capsule Take 30 mg by mouth nightly as needed for Sleep TURMERIC PO Every shift STOP taking these medications HYDROcodone-acetaminophen (NORCO) 10-325 MG per tablet Probiotic Product (PROBIOTIC-10 ULTIMATE) CAPS Biotin 1 MG CAPS nebivolol (BYSTOLIC) 5 MG tablet telmisartan (MICARDIS) 80 MG tablet Future Appointments: Future Appointments Date Time Provider Department Center 03/11/2022 9:45 AM Kasey Hassan MD [facility] Follow up with PCP in 7 days Admitting Physician: Raysa Prajapati MD Discharging Physician: Deisy Bazan MD PCP: Anabelle Yost MD Total time spent in the discharge process is about 35 minutes Signed: Deisy Bazan MD 11/27/2021 12:35 PM Asst Professor, Internal Medicine. documented in this encounter Discharge Instructions Discharge InstructionsAnum MD Beni - 11/25/2021 10:28 AM CDT Images from the original note were not included. Joint Replacement Program POSTOPERATIVE INSTRUCTIONS Remember we are only a phone call away, if you have questions or concerns. We want to continue to jona resource for you. Our office hours are 8:00am to 4:30pm, Wednesday through Wednesday. Main Number for Non-urgent questions: Option 1: Joint Replacement Program Cell: Claudine - [phone] (7:00am-3:30pm) Option 2: Lisa - [phone]; Option #8 (8:00am-4:30pm) Appointments: [phone] Medication Refills: [phone]; Option #8 (*Refills are not handled after hours or on weekends andare not considered an emergency) After 4:30pm or On Weekends: To reach the doctor production foreman or for urgent matters after 5:00pm call: [phone], press 0, and ask for the orthopedic physician production foreman. An orthopedic resident is production foreman for our [facility] emergency room 7 days a week, 24 hours a day. If you have an orthopedic emergency after office hours, you should report to the nearest emergency room! For general questions regarding the Joint Replacement Program or if you need any assistance aftersurgery PLEASE contact the video game programmer: Claudine Barros: office [phone], cell [phone] (call or text) Wednesday- Wednesday 7:30am until 3:30pm Wound/Incision Care: Hip Replacement Surgery: If you have Clear and/or Plastic Dressing: -If you have a clear and/or plastic dressing on your hip you may leave this dressing on until your follow up 2 weeks after your surgery -You may shower with your clear, plastic dressing on. Do not try to scrub around it as it may make the dressing come off. -If your dressing falls off, you should have hidden stitches and glue underneath. It is ok to leave the dressing off until follow up. If you have bing underneath, cover with clean gauze and paper tape you can get from a pharmacy. -If you have blisters from your dressing; it is ok to take it off and cover the incision/blisters with non-stick dressings (you can get at your local pharmacy) -It is also normal for your glue to begin to peel. If it peels; it is ok to used scissors to trim the edges for comfort. -Some drainage from the incision is normal after surgery. Clear/Red or Red fluid is normal. Any Green, Thick (purulent) discharge should be reported to your doctor immediately. -Report to your doctor any areas in the incision where the stitches have come apart and the incisionappears to have opened up. For non-emergencies you can text Claudine Barros pictures of you wound if you have questions If you have White Paper Tape Dressings with Gauze: -If you have dry gauze covering your incision with paper tape; you likely have exposed black coloredstitches over you incision. -Keep the dressing on until 2 days after your operation, then take the dressing completely off, clean only with chloroprep or alcohol prep pad, then cover with dry gauze and tape. -Change dressings daily. Take down dressing, clean chloroprep or alcohol prep pad, place new/clean gauze over incision, and cover loosely with paper tape or band-aid. -Do not clean with dirty water, bleach, or any irritant. Do not let pets lick wounds. Do not use Neosporin or ointment over incision for longer than 14 days. If you have Incisional Wound Vac Dressing: -Your wound vac is there to help the healing of the incision -You may shower with your wound vac as long as the machine itself does not get wet -If you wound vac alarms and appears that the dressing is not holding suction; you may call the above numbers during normal business hours. After hours you may simply take it off and go to daily dressing changes with dry, sterile gauze and paper tape; After this call the above numbers during business hours and report what has happened. They may schedule you an appointment to replace the wound vac. For questions, please contact us. - You may have an appointment scheduled to change your wound vac every 7 days after you are discharged. Home health or Swing Bed Nurses may also be able to change the wound vac if that option is available to you. For questions about this, please contact us. Knee Replacement Surgery: If you have Non-Stick Dressing with Knee High Hose -We will take off your GABBY wrap and dressing on the first day after your surgery and place a nonstick dressing and hose over your leg -Continue to replace this dressing by taking down your hose and changing your nonstick dressing for 3 days; then it is ok to leave it off and for your incision to air dry -You have hidden stitches and clear glue over your incision. You may shower with this. -It is normal for your glue to begin to peel. If it peels; it is ok to used scissors to trim the edges for comfort. -Some drainage from the incision is normal after surgery. Clear/Red or Red fluid is normal. Any Green, Thick (purulent) discharge should be reported to your doctor immediately. -Report to your doctor any areas in the incision where the stitches have come apart and the incisionappears to have opened up. For non-emergencies you can text Claudine Barros pictures of you wound if you have questions If you have Incisional Wound Vac Dressing: -Your wound vac is there to help the healing of the incision -You may shower with your wound vac as long as the machine itself does not get wet -If you wound vac alarms and appears that the dressing is not holding suction; you may call the above numbers during normal business hours. After hours you may simply take it off and go to daily dressing changes with dry, sterile gauze and paper tape; After this call the above numbers during business hours and report what has happened. They may schedule you an appointment to replace the wound vac. For questions about this, please contact us. - You may have an appointment scheduled to change your wound vac every 7 days after you are discharged. Home health or Swing Bed Nurses may also be able to change the wound vac if that option is available to you. For questions about this, please contact us. If you have Trouble Voiding or Urinating: -If have had trouble voiding or urinating after surgery; we may send you home with a daniel catheter in place or In & Out catheters as well as FLOMAX -If you are sent home with a daniel catheter you should have an appointment with an Urology PIT FURNACE MELTER in 7 days after your discharge in which they will take it out -If you are sent home with In & Out catheters and you run out; call the above numbers Activity: -Our goal is to get you moving again! It is normal pain in the short post operative period with activity to your surgical limb. However, we will prescribe to you physical therapy to help you get back on your feet. -Activity and exercise after your surgery is important to help get your body back to normal as well as to prevent blood clots. -We may give you restrictions after surgery in order to prevent any complications. Please follow these instructions carefully. Your physical therapist can also help with this. -If you had hip replacement surgery, it is extremely important to avoid certain movements in the post operative period before your soft tissues are fully healed. No crossing the affected leg(s) in the first 6 weeks after surgery No deep squats or sitting in low chairs in the first 6 weeks after surgery No deep bending at the hip (such as bending down to tie shoes) in the first 6 weeks after surgery No intense exercise (outside of physical therapy) in the first 6 weeks after surgery until cleared by your surgeon. -For any questions, please contact us. Diet: -Start with clear liquids and progress to regular food as tolerated. If you become sick, go back to a clear liquid diet and slowly advance to regular food. -It is common to have post-operative nausea and vomiting. It is also common for narcotic pain medications to cause nausea as well. If your nausea/vomiting persists greater than 8-10 hours after surgery, please notify the clinic at the number above. Pain Medication: -Take your pain medication as prescribed. -If you are taking Oakley or Percocet, these narcotics also contain Tylenol (acetaminophen); do not taken OTC Tylenol at home in conjunction with these medications. -You may also take ibuprofen in conjunction with your other pain medications unless your primary doctor or pharmacist says otherwise. Do not give ibuprofen if there is a history of heart problem, kidney problems, stomach ulcer, or allergy to NSAIDs. -If in doubt; always ask your primary doctor or pharmacist! Narcotic pain medication may also cause some nausea. If this becomes a problem, please notify the clinic at the above number. Follow up: -You will see us back in clinic at the [facility] about 2 weeks from your surgery. -If you did not receive a follow-up appointment at your pre-op appointment or before leaving on the day of surgery, please call the office number above. Blood Clot Prevention: -Blood clots can be an unfortunate complication from your surgery as well as immobilization after your surgery due to pain. Activity after surgery, such as physical therapy and exercises, as well as medications can help prevent this complication. -You will be prescribed or instructed to take medicine to help prevent the formation of blood clots after surgery. It is important to take these as prescribed. The general medication to take will be a baby aspirin (81mg) twice a day for two to four weeks after your surgery (which can be found at most [employer] [id number]). -If you are already on blood thinning medication before surgery; that medication should be restartedafter surgery; do not taken aspirin in conjunction with other blood thinning medications unless toldso by your primary doctor. For questions about this, please contact us. If you have any questions, please call the above numbers! DISCHARGE INSTRUCTIONS Note: Two copies of this document will be printed and signed, one for the patient and one for the patient's medical record. Home Discharge Plan of Care: Another institution[facility] Vaccinations: No vaccinations administered during this hospitalization. Discharge Planning Consults: Social Service Consult H. Nikki Date 11/27/21 and Other Consults: PT/OTDate 11/26/21 Activity: Weight-bearing as tolerated. Equipment: To be determined at the next level of care Diet: Regular diet Other Instructions: See above instructions. Discharge Blood Pressure: BP Readings from Last 1 Encounters: 11/27/21 120/67 Weight: Discharge Wt: Wt Readings from Last 1 Encounters: 11/19/21 (!) 136.1 kg (300 lb) Admission Wt: 300 lb You had the following diagnoses during your hospital admission: 1. Closed dislocation of right hip, initial encounter (HCC) Acute 2. Right hip pain Acute 3. Dislocation of hip joint prosthesis, initial encounter ([facility]) If your condition should worsen after returning home, you should be evaluated as soon as possible [facility], preferably by your usual doctor. If you are unable to be seen quickly in clinic, or if you believe your condition is an emergency, you should go immediately to an emergency room. Future appointments already scheduled for you are listed below: Future Appointments Date Time Provider Department Center 03/11/2022 9:45 AM Kasey Hassan MD [facility] If any specialty referrals were made for you during this hospital admission, you will be contacted in the near future to schedule those appointments for a time and date that is convenient for you. You should follow-up with Anabelle Yost MD in 1 week. The clinic phone number is [phone]. Please call at your earliest convenience to schedule an appointment. Follow-up with ortho in 1 week. Five Discharge diet: diabetic diet Activity restrictions after discharge: activity as tolerated A summary of this hospitalization will be sent electronically to your usual doctor if he or she is able to be located in our system. [facility] works hard to provide quality care to all patients. Your feedback is valuable. You may receive a satisfaction survey in the mail. Please take this opportunity to provide us with honest feedback for our continued improvement. It was a pleasure taking care of you during your hospital stay. documented in this encounter Medications at Time of Discharge [...] PO Take by mouth 0 benzonatate (TESSALON) Take 200 mg by mouth 0 100 mg capsule 3 times daily as needed Biotin 18720 MCG TABS Take 25,000 mcg by 0 mouth Calcium Take 1 tablet by 0 Carb-Cholecalciferol mouth 2 times daily (CALCIUM-VITAMIN D) with meals 500-200 MG-UNIT per tablet carvedilol (COREG) 12.5 Take 25 mg by mouth 0 mg tablet 2 times daily with meals clonazePAM (KLONOPIN) 0.5 Take 0.5 mg by mouth 0 mg tablet 2 times daily colesevelam (WELCHOL) 625 Take 1,250 mg by 0 MG tablet mouth 2 times daily with meals Cranberry-Vitamin as directed 0 C-Probiotic (AZO CRANBERRY) 250-30 MG TABS cyclobenzaprine Take 10 mg by mouth 0 (FLEXERIL) 10 mg tablet 3 times daily as needed for Muscle spasms diclofenac (VOLTAREN) 75 Take 75 mg by mouth 0 mg EC tablet 2 times daily dicyclomine (BENTYL) 10 Take 10 mg by mouth 0 mg capsule 4 times daily before meals and nightly diphenhydrAMINE (SOMINEX) Take 50 mg by mouth 0 0 12/10/2020 25 MG tablet DULoxetine (CYMBALTA) 60 Take 60 mg by mouth 0 mg capsule daily ELDERBERRY PO Take 100 mg by mouth 0 Enoxaparin Sodium Inject 40 mg into 24 mL 0 11/27/2021 (LOVENOX) injection the skin 2 times daily ferrous sulfate 325 (65 Take 325 mg by mouth 0 FE) MG EC tablet fluconazole (DIFLUCAN) Take 100 mg by mouth 0 100 MG tablet daily Fluticasone Inhale into the 0 Furoate-Vilanterol (BREO lungs ELLIPTA IN) furosemide (LASIX) 40 mg Take 40 mg by mouth 0 tablet daily metFORMIN (GLUCOPHAGE) Take 500 mg by mouth 0 500 mg tablet daily with breakfast mirtazapine (REMERON) [...] PO) promethazine (PHENERGAN) Take 12.5 mg by 0 12.5 MG tablet mouth every 6 hours as needed for Nausea rOPINIRole (REQUIP) 2 MG Take 2 mg by mouth 0 tablet nightly Semaglutide, 1 MG/DOSE, Inject 4 mg into the 0 (OZEMPIC, 1 MG/DOSE,) 4 skin once a week MG/3ML Vicky Pen-inj telmisartan-hydrochloroth Take 1 tablet by 0 07/02 iazide (MICARDIS HCT) mouth daily 80-25 MG per tablet temazepam (RESTORIL) 30 Take 30 mg by mouth 0 MG capsule nightly as needed for Sleep TURMERIC PO Every shift 0 venlafaxine (EFFEXOR-XR) Take 150 mg by mouth 0 150 mg 24 hr capsule daily HYDROcodone-acetaminophen Take 1-2 tablets by 15 tablet 0 0 11/27/2021 12/22/2021 (NORCO) 5-325 MG per mouth every 4 hours tablet as needed Max Daily Amount: 12 tablets documented as of this encounter Progress Notes April Tavarez RN - 11/27/2021 1:33 PM CDT Patient is discharging to [facility]. Per referral, appointment scheduled as below. 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 Sales Relationship Manager will visit with pt this afternoon. Olive Barrera, PT, DPT - 11/26/2021 10:06 AM CDT 11/26/21 1006 Session Information PT Received On 11/26/21 Number of Treatments Today 1 Number of Treatments this Week 3 Visit 1: Start Time 1006 Visit 1: Stop Time 1034 Visit 1: Time Calculation (min) 28 min Type of Session PT Treatment Visit 1: Co-Treatment with OT with PT Focus on Gait Training Beginning of Visit 1 Disposition Patient in bed;Session cleared with RN End of Visit 1 Disposition Patient left in chair/wheelchair;Call light in reach;Nursing staff notified of disposition Session Information Comment pt received pain meds just prior to therayp Precautions Weight bearing status LUE As tolerated Weight bearing status RUE As tolerated Weight bearing status LLE As tolerated Weight bearing status RLE As tolerated Hip precautions Posterior Comments Rle WV Bed Mobility 1 Activity Supine to sit Direction Left Level of Assist Supervision/Standby Assist Number of Assistants 1 Cueing/Assist Required For Verbal cues;Technique Number of Repetitions 1 Transfer 1 Activity Sit to Full Stand Level of Assist Contact guard assist Number of assistants needed 1 Assistive Devices Rolling walker Cueing Verbal and Tactile cues;Scooting to edge of seated surface;Hand placement;Sequencing Number of Repetitions 1 Transfers Comments when standing from EOB Balance Sitting Balance - static Sits without support for > 30 seconds. Standing Balance -Static Supports self with assistive device >30seconds Gait 1 Level of Assist Contact guard assist Assistive Devices Rolling walker Number of Assistants 1 Distance in Feet 60 feet Cueing for Normalized gait pattern;Sequencing Gait Deviations Decreased gait velocity;Poor Posture;R Heel strike decreased;R Step length decreased;L Step length decreased Gait Patterns Reciprocal Gait Comments pt with slow but steady gait with walker Assessment Therapy Problems Decreased functional mobility;Impaired gait;Impaired ADL function;Decreased endurance/activity tolerance Progress Progressing toward goals Endurance/Activity Tolerance Tolerates sitting in chair/wheelchair Rehab Potential Good Discharge Recommendations Acute Rehab Equipment Recommendations To be determined at next level of care Assessment Comments pt continues to progress with therapy and was albe to maneuvar Rle off of the bed without assistance this date. pt with slow but steady gait with decreased weight shift onto Rle. Encouraged OOB to chair during the day. will continue to follow while an inpt Education Education Provided Educated to call for assistance with mobility/transfers Information Provided to; Level of Understanding Patient;Verbalized understanding Plan Duration of Therapy Continue skilled therapy to address identified problems, as per Plan of Care. Treatment Interventions Functional Mobility;Gait Training;Discharge Needs;Patient/Caregiver Education CARIN Weiss/Armando - 11/26/2021 10:05 AM CDT 11/26/21 1005 Visit 1 Information OT Received On 11/26/21 Number of Treatments Today 1 Number of Treatments this Week 3 Visit 1: Start Time 1005 Visit 1: Stop Time 1040 Visit 1: Time Calculation (min) 35 min Type of Session OT Treatment Visit 1: Co-Treatment with PT with OT Focus on Endurance/Activity Tolerance;ADL Beginning of Visit 1 Disposition Patient in bed;Session cleared with RN End of Visit 1 Disposition Patient left in chair/wheelchair;Nursing staff notified of disposition Precautions Weight bearing status LUE As tolerated Weight bearing status RUE As tolerated Weight bearing status LLE As tolerated Weight bearing status RLE As tolerated Hip precautions Posterior Pain Assessment Pain Assessment 0-10 0-10 Pain Scale Rating Pain Score (did not give number) Pain Type Surgical pain Pain Location Hip Pain Orientation Right Pain Intervention(s) RN notified;Ambulation/increased activity Bed Mobility 1 Activity Supine to sit Direction Left Level of Assist Supervision/Standby Assist Number of Assistants 1 Number of Repetitions 1 Bed Mobility 2 Activity Scooting Direction To edge of bed Level of Assist Supervision/Standby Assist Number of Assistants 1 Number of Repetitions 1 Transfer 1 Activity Sit to Full Stand;Bed to Chair Level of Assist Contact guard assist Number of assistants needed 1 Technique Stand pivot (ambulated) Assistive Devices Rolling walker Cueing Verbal and Tactile cues for;Technique;Safety Number of Repetitions 1 Bed Transfers Comments Pt remained sitting up in recliner chair at end of session. Grooming Level of Assistance Supervision/Stand by assistance Activity Completed Wash/dry face;Brushing hair Where Performed Edge of bed UE Dressing Level of Assist Supervision/Stand by assistance Article of Clothing Gown Type of Assistance Required Verbal cueing;Increased time to complete LE Dressing Level of Assist Maximal assistance Article of Clothing Gripper socks Where Performed Sitting upright in bed Type of Assistance Required Don/doff R sock;Don/doff L sock Assessment Therapy Problems Impaired ADL function;Decreased functional mobility;Decreased endurance/activity tolerance Progress Progressing toward goals Rehab Potential Good OT Discharge Recommendations Acute Rehab OT Equipment Recommendations To be determined at next level of care Education Education Provided Safety techniques and recommendations;Mobility/transfer training for patient/family;Adaptive ADL techniques;Educated to call for assistance with mobility/transfers Information Provided to; Level of Understanding Patient;Verbalized understanding;Demonstrated understanding;Needs further education Plan Duration of Therapy Continue skilled therapy to address identified problems, as per Plan of Care.;Ongoing therapy 3-5x/week Treatment Interventions Functional Mobility;ADL Training;Patient/Caregiver Education;Balance Training;Discharge Needs;Home Exercise Program;Therapeutic Activities;Strengthening Deisy Bazan MD - 11/26/2021 9:40 AM CDT [facility] Medicine Progress Note Date: 11/26/21 Subjective: Brief History:66 F admitted w/ spontaneous dislocation of R prosthetic hip, POD 2 from reduction/revision. Interval History: Patient states pain is better controlled today.. Medications Reviewed Objective: PHYSICAL EXAM Temp: 98.3 ??F (36.8 ??C), Heart Rate: 60, Resp: 18, BP: 129/75 GEN: WNWD F in NAD EYES: conjunctivae anicteric, pupils equal HENT: NC, AT, mmm CV: Rate nml. RR, no m/g/r. distal pulses equal RESP: unlabored, CTAB, no w/r/r GI: ND, normal bowel sounds, NT. No masses. MSK: normal bulk. Moving all extremities SKIN: No wounds, rashes, or lesions NEURO: alert, interactive, cooperative, Oriented x 4 DIAGNOSTIC DATA Reviewed including labs and imaging ASSESSMENT Bogdan Garnett is a 66 y.o. female with hx of breast cancer and multiple joint replacements admitted for revision of R prosthetic hip. Currently with the following hospital problems: Principal Problem: Closed dislocation of right hip (HCC) Active Problems: Morbid obesity with BMI of 45.0-49.9, adult (HCC) Diabetes mellitus (HCC) Hypertension Stage 3a chronic kidney disease, GFR 45-60 ml/min (HCC) Right hip subluxation, sequela Dislocation of hip prosthesis (HCC) PLAN Oakley and dilaudid IV push prn. DM - continue ISS LOLY - nightly CPAP Continue other home chronic meds. Acute postop blood loss anemia - noted Hgn has dropped from 11 to 9, but now steady. Continue to monitor. Wound check today per Ortho. Wound VAC placed. Diet: regular DVT ppx: lovenox Code Status: Full Code Hospital Day: 8 Disposition: Pending pain control and placement. Signed: Deisy Bazan MD Deisy Bazan MD - 11/25/2021 9:42 AM CDT Hospital Medicine Progress Note Date: 11/25/21 Subjective: Brief History:66 F admitted w/ spontaneous dislocation of R prosthetic hip, POD 2 from reduction/revision. Interval History: Patient states pain is better controlled today.. Medications Reviewed Objective: PHYSICAL EXAM Temp: 97.9 ??F (36.6 ??C), Heart Rate: 72, Resp: 17, BP: 125/66 GEN: WNWD F in NAD EYES: conjunctivae anicteric, pupils equal HENT: NC, AT, mmm CV: Rate nml. RR, no m/g/r. distal pulses equal RESP: unlabored, CTAB, no w/r/r GI: ND, normal bowel sounds, NT. No masses. MSK: normal bulk. Moving all extremities SKIN: No wounds, rashes, or lesions NEURO: alert, interactive, cooperative, Oriented x 4 DIAGNOSTIC DATA Reviewed including labs and imaging ASSESSMENT Bogdan Garnett is a 66 y.o. female with hx of breast cancer and multiple joint replacements admitted for revision of R prosthetic hip. Currently with the following hospital problems: Principal Problem: Closed dislocation of right hip (HCC) Active Problems: Morbid obesity with BMI of 45.0-49.9, adult (HCC) Diabetes mellitus (HCC) Hypertension Stage 3a chronic kidney disease, GFR 45-60 ml/min (HCC) Right hip subluxation, sequela Dislocation of hip prosthesis (HCC) PLAN Oakley and dilaudid IV push prn. DM - continue ISS LOLY - nightly CPAP Continue other home chronic meds. Acute postop blood loss anemia - noted Hgn has dropped from 11 to 9, but now steady. Continue to monitor. Wound check today per Ortho. Wound VAC placed. Diet: regular DVT ppx: lovenox Code Status: Full Code Hospital Day: 7 Disposition: Pending pain control and placement. Signed: Deisy Bazan MD Olive Barrera PT, DPT - 11/25/2021 8:56 AM CDT 11/25/21855 Session Information PT Received On 11/25/21 Number of Treatments Today 1 Number of Treatments this Week 2 Visit 1: Start Time 855 Visit 1: Stop Time 944 Visit 1: Time Calculation (min) 49 min Type of Session PT Treatment Visit 1: Co-Treatment with OT with PT Focus on Gait Training Beginning of Visit 1 Disposition Patient in bed;Session cleared with RN End of Visit 1 Disposition Patient left in chair/wheelchair;Nursing staff notified of disposition;Call light in reach Precautions Weight bearing status LUE As tolerated Weight bearing status RUE As tolerated Weight bearing status LLE As tolerated Weight bearing status RLE As tolerated Hip precautions Posterior Comments RLE WV Pain Assessment Pain Assessment 0-10 0-10 Pain Scale Rating Pain Score 6 Pain Type Surgical pain Pain Location Hip Pain Orientation Right Pain Intervention(s) (pt received pain meds just prior to therapy) Cognition Overall Cognitive Status No apparent deficits Bed Mobility 1 Activity Supine to sit Direction Left Level of Assist Minimal assist Number of Assistants 1 Number of Repetitions 1 Transfer 1 Activity Sit to Full Stand Level of Assist Minimal assist Number of assistants needed 1 Assistive Devices Rolling walker Cueing Verbal and Tactile cues;Scooting to edge of seated surface;Trunk and lower extremity extension;Hand placement;Sequencing Number of Repetitions 1 Transfers Comments when standing from EOB Balance Sitting Balance - static Sits without support for > 30 seconds. Sitting Balance-Dynamic Without Challenges - Moves/Returns center of gravity over base of support inmultiple planes 100% of the time Standing Balance -Static Supports self with assistive device >30seconds Gait 1 Level of Assist Contact guard assist Assistive Devices Rolling walker Number of Assistants 1 Distance in Feet 35 feet Cueing for Normalized gait pattern;Efficient use of upper extremities;Sequencing Gait Deviations Decreased gait velocity;R Step length decreased;L Step length decreased Gait Patterns Reciprocal Therapeutic Exercise LE Therapeutic Exercise Encouraged pt to continue with LE therex while up in chair Assessment Therapy Problems Decreased functional mobility;Impaired gait;Decreased strength;Decreased endurance/activity tolerance Progress Progressing toward goals Endurance/Activity Tolerance Tolerates sitting in chair/wheelchair Rehab Potential Good Discharge Recommendations Acute Rehab Equipment Recommendations To be determined at next level of care Assessment Comments Mobility improved this date and pt tolerated ambulation into castro with walker. pt left sitting up in joint chair and encouraged pt to increase OOB. pt would benefit from continued therapy for t/f training, gait training to return to PLOF. will continue to follow while an inpt Education Education Provided Educated to call for assistance with mobility/transfers Information Provided to; Level of Understanding Patient;Verbalized understanding Plan Duration of Therapy Continue skilled therapy to address identified problems, as per Plan of Care. Treatment Interventions Functional Mobility;Gait Training;Therapeutic Exercise;Discharge Needs Kasey Randall, OTR/L - 11/25/2021 8:55 AM CDT 11/25/21 08 Visit 1 Information OT Received On 11/25/21 Number of Treatments Today 1 Number of Treatments this Week 2 Visit 1: Start Time 854 Visit 1: Stop Time 943 Visit 1: Time Calculation (min) 49 min Type of Session OT Treatment Visit 1: Co-Treatment with PT with OT Focus on ADL;Endurance/Activity Tolerance Beginning of Visit 1 Disposition Patient in bed;Session cleared with RN End of Visit 1 Disposition Patient left in chair/wheelchair;Nursing staff notified of disposition Precautions Weight bearing status LUE As tolerated Weight bearing status RUE As tolerated Weight bearing status LLE As tolerated Weight bearing status RLE As tolerated Hip precautions Posterior Pain Assessment Pain Assessment 0-10 0-10 Pain Scale Rating Pain Score 6 Pain Type Surgical pain Pain Location Hip Pain Orientation Right Pain Intervention(s) RN notified;Ambulation/increased activity (pt received pain meds prior to session) Bed Mobility 1 Activity Rolling Direction Left Level of Assist Minimal assist Number of Assistants 1 Cueing/Assist Required For Tactile and Verbal cues for;Safety;Technique;Positioning;Lower extremity management Number of Repetitions 1 Bed Mobility 2 Activity Supine to sit Direction Left Level of Assist Minimal assist Number of Assistants 1 Cueing/Assist Required For Tactile and Verbal cues for;Surgical precautions;Technique;Positioning;Lower extremity management;Hand placement Number of Repetitions 1 Transfer 1 Activity Sit to Full Stand;Bed to Chair Level of Assist Contact guard assist Number of assistants needed 1 Technique (ambulated in room and hallway) Assistive Devices Rolling walker Cueing Verbal and Tactile cues for;Safety;Technique;Controlled descent Number of Repetitions 1 Bed Transfers Comments Pt remained sitting up in recliner chair at end of session. Grooming Level of Assistance Supervision/Stand by assistance Activity Completed Brushing hair Where Performed Edge of bed UE Dressing Level of Assist Minimal assistance Article of Clothing Gown Where Performed Edge of bed Type of Assistance Required Verbal cueing;Increased time to complete;Positioning of clothing/device LE Dressing Level of Assist Maximal assistance Article of Clothing Gripper socks Where Performed Sitting upright in bed Type of Assistance Required Don/doff R sock;Don/doff L sock Toileting Level of Assist Maximal assistance Where Performed Bed;Diaper Type of Assistance Required Verbal cueing;Clothing management, up;Clothing management, down;Perinealhygiene Clothing Management Diaper Assessment Therapy Problems Impaired ADL function;Decreased functional mobility;Decreased endurance/activity tolerance;Decreased strength Progress Progressing toward goals Endurance/Activity Tolerance Tolerates > 30 minutes of activity;Tolerates sitting in chair/wheelchair Rehab Potential Good OT Discharge Recommendations Acute Rehab OT Equipment Recommendations To be determined at next level of care Education Education Provided Goals and treatment plan;Discharge recommendations;Safety techniques and recommendations;Mobility/transfer training for patient/family;Precautions;Adaptive ADL techniques;Educated tocall for assistance with mobility/transfers Information Provided to; Level of Understanding Patient;Verbalized understanding;Demonstrated understanding;Needs further education Plan Duration of Therapy Continue skilled therapy to address identified problems, as per Plan of Care.;Ongoing therapy 3-5x/week Treatment Interventions Functional Mobility;ADL Training;Strengthening;Therapeutic Activities;Therapeutic Exercise;Range of Motion;Patient/Caregiver Education;Balance Training;Discharge Needs;Home Exerc ise Program Curtis Darnell MD - 11/25/2021 8:47 AM CDT Orthopaedic Surgery Progress Note -Patient seen this morning. -Resting well. -NAEON -Pain controlled. -Denies chest pain / shortness of breath. -No numbness or tingling to operative extremity. -Doing well with PT. Vitals: Temp: [97.9 ??F (36.6 ??C)-99.2 ??F (37.3 ??C)] 98.2 ??F (36.8 ??C) Heart Rate: [63-89] 73 Resp: [16-19] 18 BP: (108-162)/(59-87) 162/87 Physical Exam: Const: Resting comfortably in bed, No acute distress RLE: - Incisional Vac in place - No drainage - SILT SP/DP/T - 4/5 EHL/FHL 4/5 GS/TA - +2 DP/PT, BCR <2s to exposed digits Recent Labs 11/23/21 0650 11/24/21 0502 HGB 9.3* 8.7* HCT 31.5* 29.4* Recent Labs 11/24/21 0502 CREATININE 0.82 BUN 11.8 NA 139 K 4.5 CL 103 CO2 26 Output by Drain (mL) 11/23/21 0701 - 11/23/21 1900 11/23/21 1901 - 11/24/21 0700 11/24/21 0701 - 11/24/21 1900 11/24/21 190 - 11/25/21 0700 11/25/21 0701 - 11/25/21 0847 Wound Vac NPWT Hip Anterior;Right;Upper 0 25 A/P: Bogdan Garnett is a 66 y.o. female s/p right revision SAMIR with poly exchange of constrained liner after constrained hip dislocation by Dr. Armendariz on 11/20/21 ?? Perioperative antibiotics for 24 hours - Ancef ?? Follow up intra-op cultures ?? DVT prophylaxis - ASA 81mg BID to start POD1 recommended, SCD's while in bed for mechanical prophylaxis ?? Keep dressings intact, OK to reinforce as needed ?? Monitor wound VAC output ?? F/u labs ?? Advance diet as tolerated ?? Elevation, N/V checks ?? Multimodal pain control ?? PT/OT evaluate and treat ?? Weight-bearing status: WBAT to right lower extremity Dispo: 1. Appreciate assistance from medicine. 2. Mobilize with PT/OT. Pain control. Posterior hip precautions, No knee flexion past 90, no right leg internal rotation, No adduction R leg past midline. 3. Cultures and pathology taken, - NG Final 4. Wound check done today. Prevena incisional vac placed and connected to hospital vac machine. Willconnect Prevena pump at discharge. 5. Page Curtis Darnell/Maribell Vidal when ready for discharge and will exchange vac machine. 6. Stable for discharge from ortho perspective. 7. F/up 1 week after dc for wound check Curtis Darnell MD Orthopaedic Surgery, PGY-2 1. PT/OT 2. WB status WBAT right lower 3. DVT prophylaxis: Lovenox for 30 days following surgery. 4. Wound care/dressing changes:Leave incisional vac dressing on until f/up in clinic. 5. Showering precautions: ok to shower if wound vac is sealed well. Do not get machine wet. No tub baths, soaking, hot tubs or swimming for 6 weeks. 6. Orthopedic follow up in 1 week with Ortho PIT FURNACE MELTER for wound check and Ortho surgeon in 6 weeks at [facility]. Jillian Tesfaye PT - 11/24/2021 11:07 AM CDT 11/24/21 1107 Session Information PT Received On 11/24/21 Number of Treatments Today 1 Number of Treatments this Week 1 Visit 1: Start Time 1107 Visit 1: Stop Time 1135 Visit 1: Time Calculation (min) 28 min Type of Session PT Treatment Visit 1: Co-Treatment with OT with PT Focus on LE Function;Transfer Training;Bed Mobility;Gait Training;Endurance/Activity Tolerance Beginning of Visit 1 Disposition Patient in bed;Family/visitor(s)/sitter present;Session cleared with RN End of Visit 1 Disposition Patient left sitting on edge of bed;Call light in reach;Family/visitor(s)/sitter present;Nursing staff notified of disposition Session Information Comment Pt's [id number] present in room throughout session. Precautions Weight bearing status LUE As tolerated Weight bearing status RUE As tolerated Weight bearing status LLE As tolerated Weight bearing status RLE As tolerated Hip precautions Posterior Comments Pt with a RLE wound vac in place. Pain Assessment Pain Assessment 0-10 0-10 Pain Scale Rating Pain Score 6 Pain Type Acute pain;Surgical pain Pain Location Hip Pain Orientation Right Effect of Pain on Daily Activities limits comfort and mobility Pain Intervention(s) Medication (See eMAR);RN notified;Repositioned;Ambulation/increased activity;Emotional support;Positioning Response to Interventions Pt's nurse gave pt IV pain meds during session. Pt left sitting EOB with family present in room. Cognition Comments Pt is awake, alert, and cooperative. Bed Mobility 1 Activity Supine to sit Direction Left Level of Assist Minimal assist Number of Assistants 1 Cueing/Assist Required For Tactile and Verbal cues;Safety;Technique;Sequencing;Lower extremity management Number of Repetitions 1 Transfer 1 Activity Sit to Full Stand;Stand to Sit Level of Assist Minimal assist Number of assistants needed 1 Assistive Devices Rolling walker Cueing Verbal and Tactile cues;Safety;Technique;Scooting to edge of seated surface;Trunk and lower extremity extension;Controlled descent;Hand placement;Sequencing;Positioning;Foot/lower extremity placement Number of Repetitions 1 Transfers Comments Height of bed elevated for sit <-> stand. Balance Sitting Balance - static Sits without support for > 30 seconds. Standing Balance -Static Supports self with assistive device >30seconds Standing balance comments Pt able to stand with RW support and CGA of 1 person for safety. Pt c/o dizziness with standing but able to progress to ambulation Gait 1 Level of Assist Minimal assist Assistive Devices Rolling walker Number of Assistants 1 Distance in Feet 10 feet Cueing for Efficient use of upper extremities;Maintenance of appropriate proximity to assistive device;Safe use of assistive device;Safety;Sequencing;Technique Gait Deviations Antalgic;Decreased gait velocity;Excessive wide base of support;R Foot clearance decreased;R Heel strike decreased;R Stance time decreased;R Stride length decreased Gait Patterns Modified 3-point Gait Comments Pt with c/o dizziness with gait task which limited distance. Therapeutic Exercise LE Therapeutic Exercise Pt was instructed in and performed 10 reps of RLE exercises in supine and sitting: AP, QS, GS, LAQ, and HR/TR. Assessment Therapy Problems Decreased functional mobility;Impaired gait;Decreased ROM;Decreased strength;Pain;Decreased endurance/activity tolerance Progress Progressing toward goals Endurance/Activity Tolerance Tolerates sitting in chair/wheelchair;Tolerates 21- 30 minutes of activity;Activity tolerance limited by pain Rehab Potential Good Discharge Recommendations Acute Rehab Equipment Recommendations To be determined at next level of care Assessment Comments Pt with improved mobility and transfers this date. Pt required min A of 1 personto get to EOB with HOB elevated. Pt able to stand from EOB with RW and min A of 1. Pt progressed to ambulation with RW today 10' x 1 but c/o dizziness. Pt was left sitting EOB with lunch tray with family present in room. Pt with improved activity tolerance today and required less assistance with all mobility. Will continue to follow pt and progress tx as tolerated. Education Education Provided Role of PT;Goals and treatment plan;Discharge recommendations;Home program;Safetytechniques and recommendations;Mobility/transfer training for patient/family;Educated to call for assistance with mobility/transfers Information Provided to; Level of Understanding Patient;Family;Verbalized understanding;Demonstratedunderstanding;Needs further education Education Comments Pt able to recall posterior hip precautions. Plan Duration of Therapy Continue skilled therapy to address identified problems, as per Plan of Care. Treatment Interventions Functional Mobility;Gait Training;Therapeutic Exercise;Therapeutic Activities;Strengthening;Patient/Caregiver Education;Balance Training;Discharge Needs;Home Exercise Program Kasey Randall, OTR/L - 11/24/2021 11:06 AM CDT 11/24/21 1106 Visit 1 Information OT Received On 11/24/21 Number of Treatments Today 1 Number of Treatments this Week 1 Visit 1: Start Time 1106 Visit 1: Stop Time 1135 Visit 1: Time Calculation (min) 29 min Type of Session OT Treatment Visit 1: Co-Treatment with PT with OT Focus on Endurance/Activity Tolerance Beginning of Visit 1 Disposition Patient in bed;Family/visitor(s)/sitter present;Session cleared with RN End of Visit 1 Disposition Patient returned to bed;Family/visitor(s)/sitter present;Nursing staff notified of disposition Precautions Weight bearing status LUE As tolerated Weight bearing status RUE As tolerated Weight bearing status LLE As tolerated Weight bearing status RLE As tolerated Hip precautions Posterior Pain Assessment Pain Assessment 0-10 0-10 Pain Scale Rating Pain Score (did not give number) Pain Type Surgical pain Pain Location Hip Pain Orientation Right Pain Intervention(s) RN notified;Ambulation/increased activity Cognition Cognition Comments Pt alert and coopertive to therapy. Bed Mobility 1 Activity Supine to sit Direction Left Level of Assist Minimal assist Number of Assistants 1 Cueing/Assist Required For Tactile and Verbal cues for;Surgical precautions;Technique;Positioning;Lower extremity management Number of Repetitions 1 Bed Mobility 2 Activity Scooting Direction To edge of bed Level of Assist Contact guard assist Number of Assistants 1 Cueing/Assist Required For Tactile and Verbal cues for;Technique;Positioning Number of Repetitions 1 Transfer 1 Activity Sit to Full Stand;Stand to Sit Level of Assist Minimal assist Number of assistants needed 1 Technique Stand pivot (able to take 5-6 steps) Assistive Devices Rolling walker Cueing Verbal and Tactile cues for;Safety;Technique Number of Repetitions 1 Bed Transfers Comments Pt c/o dizziness during standing activity; pt returned to sitting EOB at end of session with family present---nsg notified. Grooming Level of Assistance Supervision/Stand by assistance Activity Completed Brushing hair;Applying lotion Where Performed Sitting upright in bed LE Dressing Level of Assist Maximal assistance Article of Clothing Gripper socks Where Performed Sitting upright in bed Type of Assistance Required Don/doff L sock;Don/doff R sock Assessment Therapy Problems Impaired ADL function;Decreased functional mobility;Decreased endurance/activity tolerance Progress Progressing toward goals Rehab Potential Good OT Discharge Recommendations Acute Rehab OT Equipment Recommendations To be determined at next level of care Assessment Comments Pt tolerated tx well today and is making good progress with therapy. Recommend acute rehab for maximum rehab potential. Education Education Provided Role of OT;Goals and treatment plan;Discharge recommendations;Safety techniques and recommendations;Mobility/transfer training for patient/family;Precautions;Adaptive ADL techniques;Educated to call for assistance with mobility/transfers;Equipment recommendations and options Information Provided to; Level of Understanding Patient;Caregiver;Verbalized understanding;Demonstrated understanding;Needs further education Plan Duration of Therapy Continue skilled therapy to address identified problems, as per Plan of Care.;Ongoing therapy 3-5x/week Treatment Interventions Functional Mobility;ADL Training;Patient/Caregiver Education;Balance Training;Discharge Needs;Home Exercise Program;Therapeutic Activities Deisy Bazan MD - 11/24/2021 9:26 AM CDT [facility] Medicine Progress Note Date: 11/24/21 Subjective: Brief History:66 F admitted w/ spontaneous dislocation of R prosthetic hip, POD 2 from reduction/revision. Interval History: Patient complains of worsening pain today. Medications Reviewed Objective: PHYSICAL EXAM Temp: 98.3 ??F (36.8 ??C), Heart Rate: 68, Resp: 17, BP: 106/44 GEN: WNWD F in NAD EYES: conjunctivae anicteric, pupils equal HENT: NC, AT, mmm CV: Rate nml. RR, no m/g/r. distal pulses equal RESP: unlabored, CTAB, no w/r/r GI: ND, normal bowel sounds, NT. No masses. MSK: normal bulk. Moving all extremities SKIN: No wounds, rashes, or lesions NEURO: alert, interactive, cooperative, Oriented x 4 DIAGNOSTIC DATA Reviewed including labs and imaging ASSESSMENT Bogdan Garnett is a 66 y.o. female with hx of breast cancer and multiple joint replacements admitted for revision of R prosthetic hip. Currently with the following hospital problems: Principal Problem: Closed dislocation of right hip (HCC) Active Problems: Morbid obesity with BMI of 45.0-49.9, adult (HCC) Diabetes mellitus (HCC) Hypertension Stage 3a chronic kidney disease, GFR 45-60 ml/min (HCC) Right hip subluxation, sequela Dislocation of hip prosthesis (HCC) PLAN Diontinue dilaudid CABINET MOUNTER today w/ plan to transition to oral regimen today morning, norco 10-20 q6h and dilaudid IV push prn (for use w/ PT). To resume PT/OT on Wednesday. Ok to restart lovenox DVT ppx today. DM - continue insulin, to reinitiate metformin and ozempic on dc LOLY - nightly CPAP Continue other home chronic meds. Acute postop blood loss anemia - noted Hgn has dropped from 11 to 9, but now steady. Will monitor asneeded for now, no transfusion needed at this time. Diet: regular DVT ppx: lovenox Code Status: Full Code Hospital Day: 6 Disposition: Rehab. Social work consulted. Medical Necessity: remain inpatient for post op pain control and therapy, follow orthopedics recommendations. Wound check tomorrow. Signed: Deisy Bazan MD Rush Solis MD - 11/23/2021 8:01 AM CDT Orthopaedic Surgery Progress Note -Patient seen this morning. -Resting well. -NAEON -Pain better controlled overnight with adjusted regimen. -Denies chest pain / shortness of breath. -No numbness or tingling to operative extremity. Vitals: Temp: [97.8 ??F (36.6 ??C)-99.7 ??F (37.6 ??C)] 97.9 ??F (36.6 ??C) Heart Rate: [67-77] 68 Resp: [18-20] 20 BP: (109-143)/(54-83) 120/74 Physical Exam: Const: Resting comfortably in bed, No acute distress RLE: - Incisional Vac in place - No drainage - SILT SP/DP/T - 4/5 EHL/FHL 4/5 GS/TA - +2 DP/PT, BCR <2s to exposed digits Recent Labs 11/21/21 0547 11/22/21 0655 11/23/21 0650 HGB 10.3* 9.4* 9.3* HCT 32.8* 30.9* 31.5* Recent Labs 11/20/21 1717 11/21/21 0547 11/22/21 0655 CREATININE 0.81 0.81 0.69 BUN 16.3 12.4 9.9 NA 138 137 132* K 4.2 4.3 4.2 CL 100 100 97* CO2 25 27 26 Output by Drain (mL) 11/21/21 0701 - 11/21/21 1900 11/21/21 1901 - 11/22/21 0700 11/22/21 0701 - 11/22/21 1900 11/22/21 1901 - 11/23/21 0700 11/23/21 0701 - 11/23/21 0801 Wound Vac NPWT Hip Anterior;Right;Upper 0 A/P: Bogdan Garnett is a 66 y.o. female s/p right revision SAMIR with poly exchange of constrained liner after constrained hip dislocation by Dr. Armendariz on 11/20/21 ?? Perioperative antibiotics for 24 hours - Ancef ?? Follow up intra-op cultures ?? DVT prophylaxis - ASA 81mg BID to start POD1 recommended, SCD's while in bed for mechanical prophylaxis ?? Keep dressings intact, OK to reinforce as needed ?? Monitor wound VAC output ?? F/u labs ?? Advance diet as tolerated ?? Elevation, N/V checks ?? Multimodal pain control ?? PT/OT evaluate and treat ?? Weight-bearing status: WBAT to right lower extremity Dispo: 1. Appreciate assistance from Brionna. 2. Mobilize with PT/OT. Pain control. Posterior hip precautions, No knee flexion past 90, no right leg internal rotation, No adduction R leg past midline. 3. Cultures and pathology taken, low concern for infection or pathologic process but will follow up.24h ancef. NG 48h 4. Wound check in 11/25. If dc'ing, will switch to home wound vac (prevena plus) and do vac exchange 5. Please call with questions or concerns. Misbah Pino MD - 11/23/2021 7:44 AM CDT [facility] Medicine Progress Note Date: 11/23/21 Subjective: Brief History:66 F admitted w/ spontaneous dislocation of R prosthetic hip, POD 2 from reduction/revision. Interval History: Pain much better today w/ no complaints. Pt is ready to transition to po meds w/ as needed pushes for PT. Medications Reviewed Objective: PHYSICAL EXAM Temp: 97.9 ??F (36.6 ??C), Heart Rate: 68, Resp: 20, BP: 120/74 GEN: WNWD F in NAD EYES: conjunctivae anicteric, pupils equal HENT: NC, AT, mmm CV: Rate nml. RR, no m/g/r. distal pulses equal RESP: unlabored, CTAB, no w/r/r GI: ND, normal bowel sounds, NT. No masses. MSK: normal bulk. Moving all extremities SKIN: No wounds, rashes, or lesions NEURO: alert, interactive, cooperative, Oriented x 4 DIAGNOSTIC DATA Reviewed including labs and imaging ASSESSMENT Bogdan Garnett is a 66 y.o. female with hx of breast cancer and multiple joint replacements admitted for revision of R prosthetic hip. Currently with the following hospital problems: Principal Problem: Closed dislocation of right hip (HCC) Active Problems: Morbid obesity with BMI of 45.0-49.9, adult (HCC) Diabetes mellitus (HCC) Hypertension Stage 3a chronic kidney disease, GFR 45-60 ml/min (HCC) Right hip subluxation, sequela Dislocation of hip prosthesis (HCC) PLAN Diontinue dilaudid CABINET MOUNTER today w/ plan to transition to oral regimen today morning, norco 10-20 q6h and dilaudid IV push prn (for use w/ PT). To resume PT/OT on Wednesday. Ok to restart lovenox DVT ppx today. DM - continue insulin, to reinitiate metformin and ozempic on dc LOLY - nightly CPAP Continue other home chronic meds. Acute postop blood loss anemia - noted Hgn has dropped from 11 to 9, but now steady. Will monitor asneeded for now, no transfusion needed at this time. Diet: regular DVT ppx: resume lovenox today Lines: pIV Code Status: Full Code Hospital Day: 5 Disposition: pending PT/OT evaluation Medical Necessity: remain inpatient for post op pain control and therapy, follow orthopedics recommendations Signed: Misbah Pino MD Document Controller of Internal Medicine & Pediatrics Please contact via secure chat Misbah Pino MD - 11/22/2021 7:43 AM CDT Hospital Medicine Progress Note Date: 11/22/21 Subjective: Brief History:66 F admitted w/ spontaneous dislocation of R prosthetic hip, POD 2 from reduction/revision. Interval History: Pain is improving but unresolved while on CABINET MOUNTER. We discussed the possibility of leaving on until the morning of 11/23 and then transitioning to PO. Medications Reviewed Objective: PHYSICAL EXAM Temp: 98.2 ??F (36.8 ??C), Heart Rate: 78, Resp: 19, BP: 112/87 GEN: WNWD F in NAD EYES: conjunctivae anicteric, pupils equal HENT: NC, AT, mmm CV: Rate nml. RR, no m/g/r. distal pulses equal RESP: unlabored, CTAB, no w/r/r GI: ND, normal bowel sounds, NT. No masses. MSK: normal bulk. Moving all extremities SKIN: No wounds, rashes, or lesions NEURO: alert, interactive, cooperative, Oriented x 4 DIAGNOSTIC DATA Reviewed including labs and imaging ASSESSMENT Bogdan Garnett is a 66 y.o. female with hx of breast cancer and multiple joint replacements admitted for revision of R prosthetic hip. Currently with the following hospital problems: Principal Problem: Closed dislocation of right hip (HCC) Active Problems: Morbid obesity with BMI of 45.0-49.9, adult (HCC) Diabetes mellitus (HCC) Hypertension Stage 3a chronic kidney disease, GFR 45-60 ml/min (HCC) Right hip subluxation, sequela Dislocation of hip prosthesis (HCC) PLAN Continue dilaudid CABINET MOUNTER today w/ plan to transition to oral regimen tomorrow morning. May have PRN dilaudid or morphine pushes with therapy. To resume PT/OT on Wednesday. DM - continue insulin, to reinitiate metformin and ozempic on dc LOLY - nightly CPAP Continue other home chronic meds. Diet: regular DVT ppx: holding post op Lines: pIV Code Status: Full Code Hospital Day: 4 Disposition: pending PT/OT evaluation Medical Necessity: remain inpatient for post op pain control and therapy, follow orthopedics recommendations Signed: Misbah Pino MD Document Controller of Internal Medicine & Pediatrics Please contact via secure chat Curtis Darnell MD - 11/22/2021 6:44 AM CDT Orthopaedic Surgery Progress Note -Patient seen this morning. -Resting well. -NAEON -Pain better controlled overnight with adjusted regimen. -Denies chest pain / shortness of breath. -No numbness or tingling to operative extremity. Vitals: Temp: [98.6 ??F (37 ??C)-99.7 ??F (37.6 ??C)] 99 ??F (37.2 ??C) Heart Rate: [77-93] 77 Resp: [18-20] 20 BP: (109-120)/(51-83) 111/56 Physical Exam: Const: Resting comfortably in bed, No acute distress RLE: - Incisional Vac in place - No drainage - SILT SP/DP/T - 4/5 EHL/FHL 4/5 GS/TA - +2 DP/PT, BCR <2s to exposed digits Recent Labs 11/20/21 0611/20/21 17111/21/21 0547 HGB 12.3 11.6* 10.3* HCT 39.2 37.8 32.8* Recent Labs 11/20/21 0611/20/21 17111/21/21 0547 CREATININE 0.85 0.81 0.81 BUN 21.1 16.3 12.4 NA 138 138 137 K 4.3 4.2 4.3 CL 99 100 100 CO2 27 25 27 Output by Drain (mL) 11/20/21 0701 - 11/20/21 1900 11/20/21 190 - 11/21/21 0700 11/21/21 0701 - 11/21/21 1900 11/21/21 1901 - 11/22/21 0644 Wound Vac NPWT Hip Anterior;Right;Upper 0 A/P: Bogdan Garnett is a 66 y.o. female s/p right revision SAMIR with poly exchange of constrained liner after constrained hip dislocation by Dr. Armendariz on 11/20/21 ?? Perioperative antibiotics for 24 hours - Ancef ?? Follow up intra-op cultures ?? DVT prophylaxis - ASA 81mg BID to start POD1 recommended, SCD's while in bed for mechanical prophylaxis ?? Keep dressings intact, OK to reinforce as needed ?? Monitor wound VAC output ?? F/u labs ?? Advance diet as tolerated ?? Elevation, N/V checks ?? Multimodal pain control ?? PT/OT evaluate and treat ?? Weight-bearing status: WBAT to right lower extremity Dispo: 1. Appreciate assistance from Brionna. 2. Mobilize with PT/OT. Pain control. Posterior hip precautions, No knee flexion past 90, no right leg internal rotation, No adduction R leg past midline. 3. Cultures and pathology taken, low concern for infection or pathologic process but will follow up.24h ancef. 4. Wound check in 5-7d. If dc'ing, will switch to home wound vac (prevena plus). 5. Please call with questions or concerns. Kasey Chase - 11/21/2021 12:39 PM CDT [facility] Medicine Daily Progress Note Patient Name: Bogdan Garnett Age: 66 y.o. : 1955 Date: 11/21/2021 12:39 PM Subjective Brief Hospital Course: Admitted to medicine for management of pain with arthroplastic hip dislocation with surgical correction planned along and for management of chronic comorbid conditions. Current preoperative pain management includes dilaudid injection, norco tablets, and tylenol. Chronic medical conditions are well-controlled on medications outpatient. For non-insuline dependent DM2, lispro SS started and metformin discontinued (gets ozempic injections outpatient). Her diuretics were discontinued on admission with aspirin and coreg continued. For past psychiatric history, venlafaxine and remeron were continued. Ortho planning to add her on at the end of day on 11/19. Has been NPO since midnight. Surgery completed on 06/23/21. Last 24h: Patient states her pain is not well controlled post-operatively. She was able to eat a hamburger last night without N/V but has not had a BM since Wednesday. She is looking forward to PT/OT working with her so she can move around once her pain is controlled. Denies CP/SOB/fevers/chills. Medications Scheduled Meds: ??? Aspirin Low Dose 81 mg Oral Daily ??? calcium carbonate-vitamin D 1 tablet Oral BID ??? carvedilol 12.5 mg Oral BID With Meals ??? Insulin Lispro 0-5 Units Subcutaneous TID AC ??? mirtazapine 30 mg Oral Nightly ??? polyethylene glycol 17 g Oral Daily ??? potassium chloride SA 20 mEq Oral Daily ??? rOPINIRole 2 mg Oral BID ??? therapeutic multivitamin-minerals 1 tablet Oral Daily ??? venlafaxine 150 mg Oral Daily PRN Meds: acetaminophen OR acetaminophen, dextrose, dextrose, diphenhydrAMINE, HYDROmorphone AND naloxone, ondansetron Objective VS last 24h: Temp: [97.8 ??F (36.6 ??C)-99.7 ??F (37.6 ??C)] 99.7 ??F (37.6 ??C) Heart Rate: [71-97] 89 Resp: [14-22] 19 BP: (109-142)/(51-83) 114/59 Physical Exam General appearance: obese female laying in bed in no acute distress; mildly diaphoretic, appearing uncomfortable due to pain Head: NCAT, MMM Eyes: conjunctivae/corneas clear, EOMI Lungs: Normal WOB; CTAB; No W/R/R Heart: normal rate, regular rhythm; no M/G/R Abdomen: NT, distended at baseline; Normal BSx4 no masses, no organomegaly Extremities: wound vac in place and functional on RLE Pulses: palpable in all extremities including RLE Skin: Skin color, texture, turgor normal. No rashes or lesions Neurologic: No focal deficits Psych: awake, alert, and oriented x 4, appropriate affect Labs Glucose 186 WBC 8.1 H/H: 10.3/32.8 Micro All wound culture negative thus far. Imaging CXR (11/19/21) - no acute CP findings Right Knee Xray (11/19/21), XR Hip WWO Pelvis Right (10/2021), XR Femur right (11/19/21) - dislocation of the right hip arthroplasty, no acute fracture or dislocation of the distal femur or knee Assessment 66 year old female who presented with right hip pain due to right hip arthroplasty dislocation whilewalking POD1 following closed fixation in OR with ortho who we are managing for DM2, LOLY, HTN, CHF, PTSD, depression, anxiety, and class 3 obesity. Plan Spontaneous R prosthetic hip dislocation - POD1 following closed reduction of R prosthetic hip joint - h/o R hip replacement in 06/2019 with course complicated by 3 revisions after falls and periprosthetic fractures. Fairly functional since last revision in 04/[address] Hassan - NPOMN, holding DVT ppx - will transition to CABINET MOUNTER today for better pain control; will likely be able to come off of this within 24 hrs - Zofran PRN for nausea - WBAT to RLE - discontinuing fluids as pt is increasing oral intake adequately - PT/OT consulted - vitamin D tab BID - KCl tab 20 mEq daily - ropinirole 2 mg nightly - vitamin C and multivitamin - home medication adjustment: 1. holding diuretics including hydrochlorothiazide and lasix 2. Holding metformin 3. Continue ARB and beta mili 4. Continue ASA 81 ?? HTN - home: telmisartan/hctz and coreg - preop: continue ARB (ordering valsartan as telmisartan unavailable) and coreg. Hold hydrochlorothiazide ?? Non insulin dependent DM2 - home: metformin and ozempic weekly - pre op: LDSI with goal 140-180 - last A1c 6.7 in 10/2021 per patient ?? H/o CHF - no TTE in chart but patient reports history - continue aspirin - holding lasix but closely monitoring resp status ?? LOLY - nightly CPAP ?? PTSD/depression/anxiety - continue home meds pre op ?? Class 3 obesity - s/p liposuction and ozempic helping with weight loss Consults: ortho DVT ppx: holding Lines: peripheral IV Code status: FULL Dispo: POD1 with ortho for closed R hip revision. Improve pain control. Mobilize with PT/OT. Signed: Tarah Chase Medical Student, Associated attestation - Raysa Prajapati MD - 11/21/2021 4:48 PM CDT [facility] Attending Note: I saw and examined Ms. Garnett with Susana Chase and our team on 11/21/21 and reviewed Susana Chase's documentation. I agree with what is documented, including the medical decision making, with the following additions: Ms. Garnett is a 66 yo admitted with spontaneous dislocation of her right prosthetic hip. She is post op day 1 from open reduction / revision. Doing well today other than inadequate pain control. Has received every dose possible of her IV narcotics with only transient relief. No post op chest pain or N/V. On exam she is afebrile, HR 70s-90s, BP 100s/50s - 140s/80s Cardiac rhythm regular Resp effort unlabored with good air movement bilaterally Abd soft, nontender, bowel sounds active Labs reviewed; anemia likely due to expected blood loss with procedure. Agree with plans as outlined by Susana Chase; consulted PT/OT and orthopedics following for post-op care,wound vac in place. Giving 24 hours on CABINET MOUNTER dilaudid to get pain better controlled then begin transition to oral regimen. On home antihypertensives and as her PO intake increases can resume her home hydr ochlorothiazide if blood pressures increasing. Currently on insulin for diabetes but managed with metformin and ozempic in outpatient setting. No evidence of heart failure symptoms; reports she has heart failure but not sure what type or chronicity as she is followed by outside veterinary practitioner (Dr. Bertram Alcala). Continue home medications for other chronic medical conditions and nightly CPAP for LOLY. MD Magnolia SimonSobeida Morrison, DPT - 11/21/2021 9:51 AM CDT 11/21/21950 Session Information PT Received On 11/21/21 Number of Treatments Today 1 Number of Treatments this Week 1 Visit 1: Start Time 950 Visit 1: Stop Time 1035 Visit 1: Time Calculation (min) 44 min Type of Session PT Evaluation Visit 1: Co-Treatment with OT with PT Focus on Evaluation;LE Function;Bed Mobility;Transfer Training Beginning of Visit 1 Disposition Session cleared with RN;Patient in bed;Family/visitor(s)/sitter present End of Visit 1 Disposition Patient returned to bed;Call light in reach;Family/visitor(s)/sitter present;Nursing staff notified of disposition Session Information Comment Patient's daughter present throughout therapy session. PMH and Current Hx Pertinent Patient Information Patient is a 66 y.o. female with HTN, diabetes, CHF and hx of inflammatory breast cancer s/p b/l mastectomy and chemo who presents to the ED s/p spontaneous right hip d/l with pain to her right hip. Patient reports she was walking in her house when suddenly her right hip gave out; s/p right revision SAMIR with poly exchange of constrained liner after constrained hip dislocation by Dr. Armendariz on 11/20/21 Precautions Weight bearing status LUE As tolerated Weight bearing status RUE As tolerated Weight bearing status LLE As tolerated Weight bearing status RLE As tolerated Hip precautions Posterior Comments Patient also has history of prior R shoulder replacement with dislocation; L rotator cuff injury Home Living Type of Home House Home Layout One level;1-2 steps (threshold step) Home Equipment Bedside commode;Cane;Cane-Quad;Lift chair;Tub Transfer Bench;Walker - rolling Prior Function Level of [employer] Independent/Modified Independent with ADLs;Independent/Modified Independent with Functional Mobility Assistance Available None, lives alone History of Falls No Pain Assessment Pain Assessment 0-10 0-10 Pain Scale Rating Pain Score (patient did not rate pain; increases with initial movement but then subsides) Pain Intervention(s) Ambulation/increased activity;Positioning Response to Interventions resting in bed at end of session Cognition Overall Cognitive Status No apparent deficits ROM LLE ROM AROM Within Defined Limits - Adequate ROM to perform ADLs and age- appropriate, functional activities RLE ROM PROM Within Defined Limits - Adequate ROM to perform ADLs and age- appropriate, basic functional activities RLE ROM Comments able to move at all joints within precautions with assistance Strength LLE Strength Within Defined Limits - Adequate strength to perform ADLs and age appropriate, basic functional activities;3+/5;4/5 LLE Strength Comments arthritis L knee RLE Strength Deficits due to Pain;3-/5;3+/5 Sensation Light Touch No apparent deficits in lower extremities Tone LLE Tone/Spasticity Normal RLE Tone/Spasticity Normal Bed Mobility 1 Activity Supine to sit Direction Left Level of Assist Maximal assist Number of Assistants 2 Cueing/Assist Required For Tactile and Verbal cues;Safety;Technique;Hand placement;Lower extremity management;Foot/lower extremity placement;Anterior weight shift;Trunk elevation Number of Repetitions 1 Bed Mobility 2 Activity Sit to supine Direction Left Level of Assist Maximal assist Number of Assistants 2 Cueing/Assist Required For Tactile and Verbal cues;Safety;Technique;Hand placement;Sequencing;Lower extremity management;Foot/lower extremity placement Number of Repetitions 1 Bed Mobility 3 Activity Scooting Direction Up in bed Level of Assist Maximal assist Number of Assistants 2 Cueing/Assist Required For Verbal cues;Safety;Technique;Foot/lower extremity placement Number of Repetitions 1 Bed Mobility Comments patient able to assist with L LE Transfer 1 Activity Sit to Full Stand Level of Assist Maximal assist Number of assistants needed 2 Assistive Devices Rolling walker Cueing Verbal and Tactile cues;Safety;Technique;Scooting to edge of seated surface;Hand placement;Anterior weight shift;Trunk and lower extremity extension;Foot/lower extremity placement Number of Repetitions 1 Transfers Comments Height of bed elevated; attempted one other time with partial stand; sit to full stand X 1 Transfer 2 Activity Stand to Sit Level of Assist Maximal assist;Moderate assist Number of assistants needed 2 Assistive Devices Rolling walker Cueing Verbal and Tactile cues;Safety;Technique;Controlled descent;Hand placement;Foot/lower extremity placement;Surgical precautions Number of Repetitions 1 Able to maintain precautions as ordered Yes Balance Sitting Balance - static Sits without support for > 30 seconds. Sitting balance comments Once in siting patient able to maintain sitting balance without difficulty Standing Balance -Static Performs >75% of activity Standing balance comments Patient stands with RW with CGA X 1 once in standing. Gait 1 Level of Assist Other (Comments) Gait Comments did not progress to standing 2/2 report of dizziness with standing with this first attempt out of bed since surgery. Therapeutic Exercise LE Therapeutic Exercise Patient instructed to perform hip rotation, hip ab/adduction to midline only; heel slides, quad sets, ankle DF/PF Assessment Therapy Problems Decreased functional mobility;Impaired gait;Decreased ROM;Decreased strength;Pain;Decreased endurance/activity tolerance Endurance/Activity Tolerance Tolerates > 30 minutes of activity;Activity tolerance limited by pain Rehab Potential Good Discharge Recommendations Acute Rehab Equipment Recommendations To be determined at next level of care Assessment Comments Patient required max A X 2 for bed mobility and transfers but provided good effort in spite of pain. Will continue to follow to progress mobility and gait as tolerated. Recommend acute rehab to maximize independence with all mobility prior to return home to live independently. Education Education Provided Role of PT;Goals and treatment plan;Discharge recommendations;Home program;Mobility/transfer training for patient/family;Precautions Information Provided to; Level of Understanding Patient;Family;Verbalized understanding;Demonstratedunderstanding;Needs further education Plan Duration of Therapy Continue skilled therapy to address identified problems, as per Plan of Care.;Ongoing therapy 2-4x/week Treatment Interventions Functional Mobility;Gait Training;Therapeutic Exercise;Therapeutic Activities;Range of Motion;Strengthening;Patient/Caregiver Education;Discharge Needs;Home Exercise Program Plan Comments Initiate PT POC Goal Formulation Patient Stated Goals to be able to return to prior level of function (lived alone, independent/modified independent) Goals to be Met or Reassessed in 2 weeks Discharge Goals Discharge Goals Patient/Caregiver will verbalize understanding of recommendations for further therapy/DME needs, safety, and activity level. ROM Goals Increase ROM R hip painfree ROM within posterior hip precautions Strength Goals Increase Strength B LEs to 4/5 or better throughout Bed Mobility Goals Perform All Aspects of Bed Mobility Minimal Assistance;Self-assisting affected extremity;With assistance of 1 Transfer Goals Perform Sit to Stand Minimal Assistance;With appropriate assistive device;With assistance of 1 Perform Bed to Chair/Wheelchair Transfer Minimal Assistance;With appropriate assistive device;With assistance of 1 Gait Goals Distance 25-50' Assistance Minimal Assistance;Using appropriate assistive device;With assistance of 1 Specifics of Gait On even surface;With appropriate gait pattern Precaution Goals Maintain Precautions During Functional Activities 100% of the Time Patient will demonstrate understanding;Hip precautions;Without cues Safety Awareness Goal Safety Awareness During Functional Activities Demonstrate;100% of time;Without cues HEP Goals Home Exercise Program Goals Patient will be independent with home exercise program and safe progression Mihaela Su, OTR/L - 11/21/2021 9:50 AM CDT 11/21/21 0950 Visit 1 Information OT Received On 11/21/21 Number of Treatments Today 1 Number of Treatments this Week 1 Visit 1: Start Time 0950 Visit 1: Stop Time 1035 Visit 1: Time Calculation (min) 45 min Type of Session OT Evaluation Visit 1: Co-Treatment with PT with OT Focus on Evaluation;UE Function Beginning of Visit 1 Disposition Patient in bed;Session cleared with RN End of Visit 1 Disposition Patient returned to bed;Call light in reach;Family/visitor(s)/sitter present;Nursing staff notified of disposition Pertinent Patient Info: PMH and Current Hx Pertinent Patient Information 66 y.o. female s/p right revision SAMIR with poly exchange of constrained liner after constrained hip dislocation. Posterior hip precautions, No knee flexion past 90, no right leg internal rotation, No adduction R leg past midline. PMHx significant for inflammatory breast cancer (s/p bilateral mastectomies, 18 chest wall surgeries, and chemo), HTN, diabetes, CHF, and depression Precautions Weight bearing status LUE As tolerated Weight bearing status RUE As tolerated Weight bearing status LLE As tolerated Weight bearing status RLE As tolerated Comments wound vac Home Living Type of Home House Home Layout One level Home Equipment Bedside commode;Cane;Cane-Quad;Lift chair;Heavy Equipment Plumbing Supervisor;Tub Transfer Bench;Walker - rolling Prior Function Level of [employer] Independent/Modified Independent with ADLs;Independent/Modified Independent with Functional Mobility;Independent/Modified Independent with Instrumental ADLs Assistance Available None, lives alone Comments Pt lives alone and states that she will have no one that is able to stay with her folloing hospirtalization Pain Assessment Pain Assessment 0-10 0-10 Pain Scale Rating Pain Score (Pt does rate. Pain increases with movement bt does subside) Pain Intervention(s) Repositioned;Emotional support Cognition Overall Cognitive Status No apparent deficits Vision Assessment Patient Comment No acute changes reported ROM LUE ROM AROM Within Defined Limits - Adequate ROM to perform ADLs and age- appropriate, functional activities RUE ROM AROM Within Defined Limits - Adequate ROM to perform ADLs and age- appropriate, functional activities ROM Comments Pt states that she has R total shoudler replacement with dislocation and L rotator cuffinjury. Strength LUE Strength 3+/5 RUE Strength 3+/5 Coordination LUE Gross Motor Coordination No apparent deficit LUE Fine Motor Coordination No apparent deficit RUE Gross Motor Coordination No apparent deficit RUE Fine Motor Coordination No apparent deficit Bed Mobility 2 Activity Supine to sit;Sit to supine Level of Assist Maximal assist Number of Assistants 2 Cueing/Assist Required For Tactile and Verbal cues for;Safety;Technique;Hand placement;Sequencing;Positioning;Lower extremity management Number of Repetitions 1 Transfer 1 Activity Sit to Full Stand;Stand to Sit Direction Forward;Backward Level of Assist Maximal assist Number of assistants needed 2 Assistive Devices Rolling walker Cueing Verbal and Tactile cues for;Safety;Technique;Hand placement;Sequencing;Positioning;Lower extremity management Number of Repetitions 1 Bed Transfers Comments bed level raised during standing Balance Sitting Balance - static Sits without support for > 30 seconds. Sitting Balance-Dynamic Without Challenges - Movers/Returns center of gravity over base of support in multiple planes 100% of the time Sitting Balance - Dynamic with Challenges Able to sustain with minimal challenges Standing Balance -Static Performs >75% of activity Standing Balance, Dynamic without Challenges - Moves/returns center of gravity over base of support in multiple planes >75% of the time Standing Balance, Dynamic with Challenges - Able to sustain with minimal challenges Feeding Level of Assist Independent Grooming Level of Assistance Moderate assistance Bathing Level of Assist Moderate assistance UE Dressing Level of Assist Moderate assistance LE Dressing Level of Assist Moderate assistance Toileting Level of Assist Moderate assistance Assessment Therapy Problems Impaired ADL function;Decreased functional mobility;Impaired gait;Decreased ROM;Decreased strength;Decreased safety awareness/judgement;Decreased balance;Decreased endurance/activity tolerance Endurance/Activity Tolerance Tolerates 21-30 minutes of activity Rehab Potential Good OT Discharge Recommendations Acute Rehab OT Equipment Recommendations Will continue to follow and assess for needs Assessment Comments Pt tolerated OT eval well. Pt performed all bed mobility and functional transfers with max A. Pt maintains balance while sitting EOB. Pt demonstrates decreased strength in BUE. OT will continue to follow and assess. OT to rec acute rehab prior to home. Education Education Provided Role of OT;Goals and treatment plan;Equipment recommendations and options;Safety techniques and recommendations;Mobility/transfer training for patient/family Information Provided to; Level of Understanding Patient;Family;Verbalized understanding Plan Duration of Therapy Continue skilled therapy to address identified problems, as per Plan of Care.;Ongoing therapy 1-5x/week Treatment Interventions Functional Mobility;ADL Training;Therapeutic Exercise;Therapeutic Activities;Range of Motion;Strengthening;Balance Training Plan Comments initate POC Goal Formulation Goals to be Met or Reassessed in 2 wks Goals Formulated With Patient Discharge Goals Discharge Goals Patient/Caregiver will verbalize understanding of recommendations for further therapy/DME needs, safety, and activity level. ADL Goals Grooming Independent Upper Body Dressing Minimal Assistance Lower Body Dressing Minimal Assistance Bathing Minimal Assistance Toileting Minimal Assistance Strength Goals Increase Strength PT will increase BUE strength by one muscle grade for increased ability to performfunctional transfers Bed Mobility Goals Perform All Aspects of Bed Mobility Moderate Assist;With assistance of 1 Transfer Goals Perform Sit to Stand Moderate Assist;With assistance of 1 Balance Goals Demonstrate Righting Reactions while Standing During static activities;100% of the time;Without cues Safety Awareness Goal SAFETY AWARENESS DURING FUNCTIONAL ACTIVITIES Verbalize;Demonstrate;100% of time;Without cues HEP Goals Home Exercise Program Goals Patient will be independent with home exercise program and safe progression;Caregiver will be independent with home exercise program and safe progression Curtis Darnell MD - 11/21/2021 6:15 AM CDT Orthopaedic Surgery Progress Note -Patient seen this morning. -NAEON -Pain not well controlled. -Denies chest pain / shortness of breath. -No numbness or tingling to operative extremity. Vitals: Temp: [97.8 ??F (36.6 ??C)-99.7 ??F (37.6 ??C)] 99.7 ??F (37.6 ??C) Heart Rate: [71-97] 97 Resp: [14-22] 18 BP: (118-142)/(63-83) 142/63 Physical Exam: Const: Resting comfortably in bed, No acute distress RLE: - Incisional Vac in place - No drainage - SILT SP/DP/T - 4/5 EHL/FHL 4/5 GS/TA - +2 DP/PT, BCR <2s to exposed digits Recent Labs 11/20/21 0619 11/20/21 1717 11/21/21 0547 HGB 12.3 11.6* 10.3* HCT 39.2 37.8 32.8* Recent Labs 11/19/21 0401 11/20/21 0619 11/20/21 1717 CREATININE 1.05* 0.85 0.81 BUN 27.3* 21.1 16.3 NA 137 138 138 K 4.0 4.3 4.2 CL 100 99 100 CO2 24 27 25 Output by Drain (mL) 11/19/21 0701 - 11/19/21 1900 11/19/21 190 - 11/20/21 0700 11/20/21 0701 - 11/20/21 1900 11/20/21 190 - 11/21/21 0626 Requested LDAs do not have output data documented. A/P: Bogdan Garnett is a 66 y.o. female s/p right revision SAMIR with poly exchange of constrained liner after constrained hip dislocation by Dr. Armendariz on 11/20/21 ?? Perioperative antibiotics for 24 hours - Ancef ?? Follow up intra-op cultures ?? DVT prophylaxis - ASA 81mg BID to start POD1 recommended, SCD's while in bed for mechanical prophylaxis ?? Keep dressings intact, OK to reinforce as needed ?? Monitor wound VAC output ?? F/u labs ?? Advance diet as tolerated ?? Elevation, N/V checks ?? Multimodal pain control ?? PT/OT evaluate and treat ?? Weight-bearing status: WBAT to right lower extremity Dispo: 1. Will discuss pain regimen with brionna--she reports taking norco 10/325x2 periodically at home for pain--may need increased narcotic dose for short term pain control 2. Mobilize with PT/OT. Pain control. Posterior hip precautions, No knee flexion past 90, no right leg internal rotation, No adduction R leg past midline. 3. Cultures and pathology taken, low concern for infection or pathologic process but will follow up.24h ancef. 4. Wound check in 5-7d. If dc'ing, will switch to home wound vac (prevena plus). Rush Solis MD - 11/20/2021 5:07 PM CDT Orthopaedic Surgery Progress Note -Patient seen for a post-operative check. -Doing well. -Pain well controlled. -Denies chest pain / shortness of breath. -No numbness or tingling to operative extremity. Vitals: Temp: [97.8 ??F (36.6 ??C)-99.1 ??F (37.3 ??C)] 97.8 ??F (36.6 ??C) Heart Rate: [75-96] 78 Resp: [15-20] 15 BP: (111-141)/(63-83) 141/83 Physical Exam: Const: Resting comfortably in bed, No acute distress RLE: - Incisional Vac in place - No drainage - SILT SP/DP/T - 4/ EHL/FHL 08/05 GS/TA - +2 DP/PT, BCR <2s to exposed digits Recent Labs 11/18/21 1658 11/19/21 0401 11/20/21 0619 HGB 12.5 11.8* 12.3 HCT 40.2 38.5 39.2 Recent Labs 11/18/21 1658 11/19/21 0401 11/20/21 0619 CREATININE 1.07* 1.05* 0.85 BUN 22.8 27.3* 21.1 NA 138 137 138 K 4.1 4.0 4.3 CL 100 100 99 CO2 24 24 27 A/P: Bogdan Garnett is a 66 y.o. female s/p right revision SAMIR with poly exchange of constrained liner after constrained hip dislocation by Dr. Armendariz on 11/20/21 ?? Perioperative antibiotics for 24 hours - Ancef ?? Follow up intra-op cultures ?? DVT prophylaxis - ASA 81mg BID to start POD1 recommended, SCD's while in bed for mechanical prophylaxis ?? Keep dressings intact, OK to reinforce as needed ?? Monitor wound VAC output ?? F/u labs ?? Advance diet as tolerated ?? Elevation, N/V checks ?? Multimodal pain control ?? PT/OT evaluate and treat ?? Weight-bearing status: WBAT to right lower extremity Dispo: 1. Mobilize with PT/OT. Pain control. Posterior hip precautions, No knee flexion past 90, no right leg internal rotation, No adduction R leg past midline. 2. Cultures and pathology taken, low concern for infection or pathologic process but will follow up.24h ancef. 3. Wound check in 5-7d. If dc'ing, will switch to home wound vac (prevena plus). Nilda Gonzalez - 11/20/2021 9:28 AM CDT [facility] Medicine Daily Progress Note Patient Name: Bogdan Garnett Age: 66 y.o. : 1955 Date: 11/20/2021 9:28 AM Subjective Brief Hospital Course: Admitted to medicine for management of pain with arthroplastic hip dislocation with surgical correction planned along and for management of chronic comorbid conditions. Current preoperative pain management includes dilaudid injection, norco tablets, and tylenol. Chronic medical conditions are well-controlled on medications outpatient. For non-insuline dependent DM2, lispro SS started and metformin discontinued (gets ozempic injections outpatient). Her diuretics were discontinued on admission with aspirin and coreg continued. For past psychiatric history, venlafaxine and remeron were continued. Ortho planning to add her on at the end of day on 11/19. Has been NPO since midnight. Surgery completed on 06/23/21. Last 24h: No acute events overnight. Says that her pain has been well-controlled throughout the day today. No complaints of pain anywhere else. Denies fever, chills, SOB. Says she is anxious about her surgery but otherwise doing well. Had a sandwich from [employer] last night. Hasn't had a bowel movement sinceMonday but says that it because she hadn't been eating much. Medications Scheduled Meds: ??? Aspirin Low Dose 81 mg Oral Daily ??? calcium carbonate-vitamin D 1 tablet Oral BID ??? carvedilol 12.5 mg Oral BID With Meals ??? Insulin Lispro 0-5 Units Subcutaneous TID AC ??? mirtazapine 30 mg Oral Nightly ??? polyethylene glycol 17 g Oral Daily ??? potassium chloride SA 20 mEq Oral Daily ??? rOPINIRole 2 mg Oral Nightly ??? venlafaxine 150 mg Oral Daily PRN Meds: acetaminophen OR acetaminophen, dextrose, dextrose, HYDROcodone- acetaminophen, HYDROmorphone, ondansetron Objective VS last 24h: Temp: [97.9 ??F (36.6 ??C)-99.1 ??F (37.3 ??C)] 97.9 ??F (36.6 ??C) Heart Rate: [69-96] 82 Resp: [16-20] 20 BP: (101-132)/(63-85) 129/68 Physical Exam General appearance: obese female laying in bed in no acute distress; appropriately conversant with raspy voice Head: NCAT, MMM Eyes: conjunctivae/corneas clear. PERRL, EOMI Throat: tongue normal and teeth and gums normal Neck: no adenopathy, no carotid bruit, no JVD Lungs: Normal WOB; CTAB; No W/R/R Heart: normal rate, regular rhythm; no M/G/R Abdomen: NT, distended at baseline; Normal BSx4 no masses, no organomegaly Extremities: no hematoma noted on R hip, leg externally rotated Pulses: palpable in all extremities including RLE Skin: Skin color, texture, turgor normal. No rashes or lesions Neurologic: No focal deficits Psych: awake, alert, and oriented x 4, appropriate affect Labs Glucose 146 Micro No new micro Imaging CXR (11/19/21) - no acute CP findings Right Knee Xray (11/19/21), XR Hip WWO Pelvis Right (10/2021), XR Femur right (11/19/21) - dislocation of the right hip arthroplasty, no acute fracture or dislocation of the distal femur or knee Assessment 66 year old female who presented with right hip pain due to right hip arthroplasty dislocation whilewalking with ortho planning for open vs closed fixation in OR who we are managing for DM2, LOLY, HTN,CHF, PTSD, depression, anxiety, and class 3 obesity. Plan Spontaneous R prosthetic hip dislocation - h/o R hip replacement in 06/2019 with course complicated by 3 revisions after falls and periprosthetic fractures. Fairly functional since last revision in 04/[address] Hassan - imaging evaluated by ortho, will require sedation in the OR with anesthesia for open vs closed reduction??given multiple medical co-morbidities and difficulty with sedation in past - NPOMN, holding DVT ppx - multimodal pain control (dilaudid 2 mg q4 PRN, norco 10 q6 PRN, tylenol 650 q4 prn) - Non weight bearing to RLE - plasmalyte 125 ml/hr - vitamin D tab BID - KCl tab 20 mEq daily - ropinirole 2 mg nightly - vitamin C and multivitamin - pre -op medication adjustment: 1. holding diuretics including hydrochlorothiazide and lasix 2. Holding metformin 3. Continue ARB and beta mili 4. Continue aspirin 5. Holding DVT ppx ?? HTN - home: telmisartan/hctz and coreg - preop: continue ARB (ordering valsartan as telmisartan unavailable) and coreg. Hold hydrochlorothiazide ?? Non insulin dependent DM2 - home: metformin and ozempic weekly - pre op: LDSI with goal 140-180 - last A1c 6.7 in 10/2021 per patient ?? H/o CHF - no TTE in chart but patient reports history - continue aspirin - holding lasix but closely monitoring resp status ?? LOLY - nightly CPAP ?? PTSD/depression/anxiety - continue home meds pre op ?? Class 3 obesity - s/p liposuction and ozempic helping with weight loss Consults: ortho DVT ppx: holding Lines: peripheral IV Code status: FULL Dispo: continue management of chronic health conditions and ortho managing for dislocation of hip arthroplasty Signed: Nilda Gonzalez M4 Associated attestation - Raysa Prajapati MD - 11/20/2021 4:59 PM CDT [facility] Attending Note: I saw and examined Ms. Garnett on 11/20/21 and reviewed Susana Gonzalez's documentation. I agree with what isdocumented, including the medical decision making, with the following additions: Ms. Garnett is feeling well this morning, eager to have hip repaired but understands the delays in getting operating room time. Exam: afebrile, HR 70s-90s, BP 110s/60s - 140s/80s Cardiac rhythm regular Resp effort unlabored, good air movement bilaterally Abd soft, nontender, bowel sounds active Labs reviewed; doing well. Plan for open reduction, revision in OR today. Appreciate assistance of orthopedic surgery. Agree with plans as outlined by Susana Gonzalez, managing chronic medical conditions perioperatively. MD Curtis Simon MD - 11/20/2021 6:09 AM CDT Orthopaedic Surgery Progress Note Patient seen this morning. Doing well. Pain controlled. No numbness/tingling to right lower extremity. Active lady, lives alone independently. Cares for herself and home without assistance. NPO for OR today. Vitals: Temp: [97.9 ??F (36.6 ??C)-99.1 ??F (37.3 ??C)] 99.1 ??F (37.3 ??C) Heart Rate: [69-96] 82 Resp: [16-20] 20 BP: (101-132)/(63-85) 111/63 Physical Exam: Constitutional: Resting comfortably in bed in NAD RLE: Shortened and internally rotated Expected TTP SILT T/DP/SP 5/5 EHL/FHL, 5/5 GS/TA +2 DP, BCR to exposed toes Recent Labs 11/18/21 1658 11/19/21 0401 HGB 12.5 11.8* HCT 40.2 38.5 Recent Labs 11/18/21 1658 11/19/21 0401 CREATININE 1.07* 1.05* BUN 22.8 27.3* NA 138 137 K 4.1 4.0 CL 100 100 CO2 24 24 A/P: Bogdan Garnett is a 66 y.o. female s/p spontaneous right prosthetic hip dislocation. ?? DVT prophylaxis - chemoprophylaxis per primary team, OK to start POD1, SCD's while in bed for mechanical prophylaxis ?? Keep dressings intact ?? F/u labs ?? Advance diet as tolerated ?? Elevation, N/V checks ?? Multimodal pain control ?? PT/OT evaluate and treat ?? Weight-bearing status: NWB to right lower extremity Dispo: Admitted to medicine team--appreciate assistance. Plan for revision right total hip arthroplasty with replacement of constrained liner. Likely today pending OR availability. Please call with questions or concerns. Nilda Gonzalez - 11/19/2021 9:29 AM CDT [facility] Daily Progress Note Patient Name: Bogdan Garnett Age: 66 y.o. : 1955 Date: 11/19/2021 9:29 AM Subjective Brief Hospital Course: Admitted to medicine for management of pain with arthroplastic hip dislocation with surgical correction planned along and for management of chronic comorbid conditions. Current preoperative pain management includes dilaudid injection, norco tablets, and tylenol. Chronic medical conditions are well-controlled on medications outpatient. For non-insuline dependent DM2, lispro SS started and metformin discontinued (gets ozempic injections outpatient). Her diuretics were discontinued on admission with aspirin and coreg continued. For past psychiatric history, venlafaxine and remeron were continued. Ortho planning to add her on at the end of day on 11/19. Has been NPO since midnight. Last 24h: Says that her pain overnight gradually worsened but once dilaudid was added, pain much improved. Pain has been well-controlled throughout the day today. No complaints of pain anywhere else. Denies fever, chills, SOB. Wanted us to know that she is fully functional at home and lives alone. She was hosting a libertarian for friends when the dislocation occurred. Medications Scheduled Meds: ??? Aspirin Low Dose 81 mg Oral Daily ??? calcium carbonate-vitamin D 1 tablet Oral BID ??? carvedilol 12.5 mg Oral BID With Meals ??? Insulin Lispro 0-5 Units Subcutaneous TID AC ??? mirtazapine 30 mg Oral Nightly ??? polyethylene glycol 17 g Oral Daily ??? potassium chloride SA 20 mEq Oral Daily ??? rOPINIRole 2 mg Oral Nightly ??? venlafaxine 150 mg Oral Daily PRN Meds: acetaminophen OR acetaminophen, dextrose, dextrose, HYDROcodone- acetaminophen, HYDROmorphone, ondansetron Objective VS last 24h: Temp: [97.3 ??F (36.3 ??C)] 97.3 ??F (36.3 ??C) Heart Rate: [74-85] 80 Resp: [16-20] 20 BP: (101-127)/(57-76) 118/76 Physical Exam General appearance: obese female laying in bed in no acute distress; appropriately conversant with raspy voice after taking nonrebreather off to speak Head: NCAT, MMM Eyes: conjunctivae/corneas clear. PERRL, EOMI Throat: tongue normal and teeth and gums normal Neck: no adenopathy, no carotid bruit, no JVD Lungs: Normal WOB; CTAB; No W/R/R Heart: normal rate, regular rhythm; no M/G/R Abdomen: NT, protruberant; Normal BSx4 no masses, no organomegaly Extremities: no hematoma noted on R hip, leg externally rotated Pulses: palpable in all extremities including RLE Skin: Skin color, texture, turgor normal. No rashes or lesions Neurologic: No focal deficits Psych: awake, alert, and oriented x 4, appropriate affect Labs ESR - 60 CRP - 1.73 BUN/Cr - 27.3/1.05 Micro No new micro Imaging CXR (11/19/21) - no acute CP findings Right Knee Xray (11/19/21), XR Hip WWO Pelvis Right (10/2021), XR Femur right (11/19/21) - dislocation of the right hip arthroplasty, no acute fracture or dislocation of the distal femur or knee Assessment 66 year old female who presented with right hip pain due to right hip arthroplasty dislocation whilewalking with ortho planning for open vs closed fixation in OR who we are managing for DM2, LOLY, HTN,CHF, PTSD, depression, anxiety, and class 3 obesity. Plan Spontaneous R prosthetic hip dislocation - h/o R hip replacement in 06/2019 with course complicated by 3 revisions after falls and periprosthetic fractures. Fairly functional since last revision in 04/[address] Hassan - imaging evaluated by ortho, will require sedation in the OR with anesthesia for open vs closed reduction??given multiple medical co-morbidities and difficulty with sedation in past - NPOMN, holding DVT ppx - multimodal pain control (dilaudid 2 mg q4 PRN, norco 10 q6 PRN, tylenol 650 q4 prn) - Non weight bearing to RLE - plasmalyte 125 ml/hr - vitamin D tab BID - KCl tab 20 mEq daily - ropinirole 2 mg nightly - pre -op medication adjustment: 1. holding diuretics including hydrochlorothiazide and lasix 2. Holding metformin 3. Continue ARB and beta mili 4. Continue aspirin 5. Holding DVT ppx ?? HTN - home: telmisartan/hctz and coreg - preop: continue ARB (ordering valsartan as telmisartan unavailable) and coreg. Hold hydrochlorothiazide ?? Non insulin dependent DM2 - home: metformin and ozempic weekly - pre op: LDSI with goal 140-180 - last A1c 6.7 in 10/2021 per patient ?? H/o CHF - no TTE in chart but patient reports history - continue aspirin - holding lasix but closely monitoring resp status ?? LOLY - nightly CPAP ?? PTSD/depression/anxiety - continue home meds pre op ?? Class 3 obesity - s/p liposuction and ozempic helping with weight loss Consults: ortho DVT ppx: holding Lines: peripheral IV Code status: FULL Dispo: continue management of chronic health conditions and ortho managing for dislocation of hip arthroplasty Signed: Nilda Gonzalez M4 Associated attestation - Raysa Prajapati MD - 11/19/2021 6:12 PM CDT [facility] Attending Note: See my note on H&P; will resume diet for this evening as no OR availability today. NPO after midnight tonight. MD Curtis Simon MD - 11/19/2021 5:49 AM CDT Orthopaedic Surgery Progress Note Patient seen in ED this morning. Doing well postoperatively. Pain controlled. No numbness/tingling to right lower extremity. Active lady, lives alone independently. Cares for herself and home without assistance. Vitals: Temp: [97.3 ??F (36.3 ??C)] 97.3 ??F (36.3 ??C) Heart Rate: [74-85] 74 Resp: [16-18] 16 BP: (101-127)/(57-75) 118/69 Physical Exam: Constitutional: Resting comfortably in bed in NAD RLE: Shortened and internally rotated Expected TTP SILT T/DP/SP 5/5 EHL/FHL, 09/04 GS/TA +2 DP, BCR to exposed toes Recent Labs 11/18/21 1658 11/19/21 0401 HGB 12.5 11.8* HCT 40.2 38.5 Recent Labs 11/18/21 1658 11/19/21 0401 CREATININE 1.07* 1.05* BUN 22.8 27.3* NA 138 137 K 4.1 4.0 CL 100 100 CO2 24 24 A/P: Bogdan Garnett is a 66 y.o. female s/p spontaneous right prosthetic hip dislocation. ?? DVT prophylaxis - chemoprophylaxis per primary team, OK to start POD1, SCD's while in bed for mechanical prophylaxis ?? Keep dressings intact ?? F/u labs ?? Advance diet as tolerated ?? Elevation, N/V checks ?? Multimodal pain control ?? PT/OT evaluate and treat ?? Weight-bearing status: NWB to right lower extremity Dispo: Admitted to medicine team--appreciate assistance. NPO for closed vs open hip reduction vs revision right SAMIR. Likely today pending OR availability. Will discuss with staff. Please call with questions or concerns. documented in this encounter H&P Notes Harsh Pollard MD - 11/19/2021 2:51 AM CDT Internal Medicine History and Physical Patient Name: Bogdan Garnett Age: 66 y.o. : 1955 Date: 11/19/2021 2:52 AM Admission Date: 11/18/2021 History and Physical Chief Complaint: R hip pain HPI: Bogdan Garnett is a 66 y.o. female with HTN, non insulin dependent DM2, CHF and hx of inflammatory breast cancer s/p b/l mastectomy and chemo, LOLY on CPAP, PTSD/depression/anxiety and class 3 obesity who presented with moderate-severe pain in R hip after spontaneous R hip dislocation while walking this morning. She felt her right leg give out and was then unable to put any weight on her right leg. She denies hitting her head or LOC. She describes it as 8 ,on the lateral side of the hip and non radiating. The slightest movement makes it worse. Alleviated by rest and morphine in ER. Of note, she has a h/o elective R hip replacement at [facility] in 06/2019 with course complicated by three subsequent revisions after fall and periprosthetic femur fractures, last revision by Dr Hassan at [facility] in 04/2020. She reports being fully functional, being able to ambulate without any difficulty until this incident in the [facility] and was actually preparing to host a tea-libertarian at her home later in the day. She lives at home by herself. In the ER, she was given morphne 8mg IV x3 , imaging was concerning for R hip prosthesis dislocation. Unable to do conscious sedation for hip reduction due to medical co-morbidities and history of previous difficulties w/ sedation including needing higher doses of anesthesia to remain sedated. Evaluated by ortho who plan to take to the OR for closed reduction in AM. Given multiple medical co-morbidities, medicine was consulted for admission with ortho to follow as consult service. PMH: HTN, non insulin dependent DM2, CHF and hx of inflammatory breast cancer s/p b/l mastectomy andchemo, LOLY on CPAP, PTSD/depression/anxiety and class 3 obesity PSH: has had a total of 33 surgeries, most recently her shoulder ball broke has a past surgical history that includes Hysterectomy (1998); Cholecystectomy; Achilles tendon repair; ORIF ankle dislocation (Right); Cataract extraction, bilateral; Facelift; Brachioplasty; Mastectomy; Breast reconstruction; Port Placement; Port Removal; Revision total hip arthroplasty (Right, 04/15/2020); orthopedic surgery (Right, 04/15/2020); and fluid removed from heart (05/21/2020). Social: Denies tobacco, alcohol or any drug use FH: Mother: Dm2, breast cancer Father: HTN Allergies: Allergies Allergen Reactions ??? Compazine [Prochlorperazine Edisylate] Shortness Of Breath ??? Nitrofurantoin Rash and Other (See Comments) ??? Prochlorperazine Anaphylaxis and Other (See Comments) ??? Other Other (See Comments) ??? Vancomycin Other (See Comments) Unsure of drug or dose, but caused total renal failure Other reaction(s): Acute renal failure ??? Adhesive Rash Can tolerate paper tape ??? Mycin [Macrolides And Ketolides] Rash Medications: 1. Calcium 600mg vitD3 10mg x2 2. Aspirin 81mg 3. MV 4. Metformin 500mg 5. Ropinirole 2mg nightly 6. Coreg 12.5mg BID 7. Diclofenac sodium 75mg tabs prn 8. Venlafaxine 150mg nightly 9. mirtazipine 15mg nightly 10. Colesevelam 625mg 11. Vit C 1000mg 12. Telmisartan/hctz 80-25mg 13. Probiotic 240mg 14. ozempic 4mg/3 ml weekly 15. Lasix 40mg daily 16. KCl 20meq Review of Systems - Review of Systems Constitutional: Positive for weight loss. Negative for chills, fever and malaise/fatigue. Intentional weight loss of 59 lbs over last year HENT: Negative for congestion, ear discharge, ear pain, hearing loss, nosebleeds, sinus pain, sore throat and tinnitus. Eyes: Negative for blurred vision, double vision, photophobia, pain, discharge and redness. Respiratory: Negative for cough, hemoptysis, sputum production, shortness of breath, wheezing and stridor. Cardiovascular: Negative for chest pain, palpitations, orthopnea, claudication, leg swelling and PND. Gastrointestinal: Negative for abdominal pain, blood in stool, constipation, diarrhea, heartburn, melena, nausea and vomiting. Genitourinary: Negative for dysuria, flank pain, frequency, hematuria and urgency. Musculoskeletal: Positive for joint pain. Negative for back pain, falls, myalgias and neck pain. Skin: Negative for rash. Neurological: Negative for dizziness, tingling, tremors, sensory change, speech change, focal weakness, seizures, weakness and headaches. Endo/Heme/Allergies: Does not bruise/bleed easily. Psychiatric/Behavioral: Positive for depression. Negative for substance abuse and suicidal ideas. The patient does not have insomnia. Personal Physician(s): Anabelle Yost MD Objective: Vital signs in last 24 hours: Temp: [97.3 ??F (36.3 ??C)] 97.3 ??F (36.3 ??C) Heart Rate: [80-85] 80 Resp: [16-18] 16 BP: (101-127)/(57-75) 101/60 Physical Exam: General appearance: obese female laying in bed in mild distress Head: NCAT, MMM Eyes: conjunctivae/corneas clear. PERRL, EOMI Throat: tongue normal and teeth and gums normal Neck: no adenopathy, no carotid bruit, no JVD Lungs: Normal WOB; CTAB; No W/R/R Heart: normal rate, regular rhythm; no M/G/R Abdomen: NT, protruberant; Normal BSx4 no masses, no organomegaly Extremities: no hematoma noted on R hip, leg externally rotated, moderate TTP Pulses: palpable in all extremities including RLE Skin: Skin color, texture, turgor normal. No rashes or lesions Neurologic: No focal deficits Psych: awake, alert, and oriented x 4, appropriate affect Labs: Chemistry: 7.2 \ 12.5 / 242 / 40.2 \ 11/18 1658 138 100 22.8 / -- 4.1 24 1.07* \ 11/18 165 M.7 (11/18 1657) Phos: 4.9* (11/18 1657) No recent LFT Direct Bili: Indirect Bili: Imaging/Ancillary Data: XR Femur Right Min 2 Views Result Date: 11/18/2021 IMPRESSION: Dislocation of the right hip arthroplasty. No acute fracture or dislocation of the distal femur or knee. RESIDENT RADIOLOGIST: Jim Butler M.D. ATTENDING RADIOLOGIST: Pedro Mckeon M.D.I have personally reviewed the image(s) and the resident's interpretations, performed any necessary editing, and agree with the findings of this report. XR Knee Right 3 Views Result Date: 11/18/2021 IMPRESSION: Dislocation of the right hip arthroplasty. No acute fracture or dislocation of the distal femur or knee. RESIDENT RADIOLOGIST: Jim Butler M.D. ATTENDING RADIOLOGIST: Pedro Mckeon M.D.I have personally reviewed the image(s) and the resident's interpretations, performed any necessary editing, and agree with the findings of this report. XR Hip WWO Pelvis Right 2 or 3 Views Result Date: 11/18/2021 IMPRESSION: Dislocation of the right hip arthroplasty. No acute fracture or dislocation of the distal femur or knee. RESIDENT RADIOLOGIST: Jim Butler M.D. ATTENDING RADIOLOGIST: Pedro Linda, M.D.I have personally reviewed the image(s) and the resident's interpretations, performed any necessary editing, and agree with the findings of this report. Assessment/Plan: Bogdan Garnett is a 66 y.o. CF with multiple medical co-morbidities presenting with spontaneous R hip prosthetic dislocation. Ortho following. Principal Problem: Closed dislocation of right hip (HCC) Active Problems: Morbid obesity with BMI of 45.0-49.9, adult ([facility]) Stage 3a chronic kidney disease, GFR 45-60 ml/min (HCC) Right hip subluxation, sequela Spontaneous R prosthetic hip dislocation - h/o R hip replacement in 06/2019 with course complicated by 3 revisions after falls and periprosthetic fractures. Fairly functional since last revision in 04/[address] Hassan - imaging evaluated by ortho, will require sedation in the OR with anesthesia for open vs closed reduction given multiple medical co-morbidities and difficulty with sedation in past - NPOMN, holding DVT ppx - multimodal pain control - Non weight bearing to RLE - RCRI: 1 point (CHF) with 6% 30 day risk of , [place] or cardiac arrest . - pre -op medication adjustment: 1. holding diuretics including hydrochlorothiazide and lasix 2. Holding metformin 3. Continue ARB and beta mili 4. Continue aspirin 5. Holding DVT ppx HTN - home: telmisartan/hctz and coreg - preop: continue ARB (ordering valsartan as telmisartan unavailable) and coreg. Hold hydrochlorothiazide Non insulin dependent DM2 - home: metformin and ozempic weekly - pre op: LDSI with goal 140-180 - last A1c 6.7 in 10/2021 per patient H/o CHF - no TTE in chart but patient reports history - continue aspirin - holding lasix but closely monitoring resp status LOLY - nightly CPAP PTSD/depression/anxiety - continue home meds pre op Class 3 obesity - s/p liposuction and ozempic helping with weight loss Code Status: FULL Oxygen: none Lines: PIV Consults: ortho Diet/Nutrition: NPOMN DVT ppx: SCDs Disposition: Admit for R prosthetic hip dislocation. Ortho following Signed Harsh Pollard MD Internal Medicine, PGY-3 [phone] Associated attestation - Raysa Prajapati MD - 11/19/2021 2:22 PM CDT [facility] Attending Note: I saw and examined Ms. Garnett on 11/19/[address] Pollard's documentation. I agree with what isdocumented, including the medical decision making, with the following additions: Ms. Garnett is a 66 yo with HTN, T2DM, inflammatory breast cancer, right hip prosthesis and complicated orthopedic historywho presented to the ED after spontaneous hip dislocation while walking in her home. No falls, no dizziness or gait instability. She has been working on weight loss through [facility] and portion control, is down 59 lbs. On exam she is very pleasant and cooperative, able to provide detailed history. Afebrile; HR 60s-80s, BP 100s/60s - [id number] Cardiac rhythm regular, no pitting edema to BLE Resp effort unlabored with good air movement bilaterally Right leg short/externally rotated, painful to palpation Labs and imaging studies reviewed; prosthetic hip dislocated. BMP with mild elevation of BUN/creatinine; elevated ESR, CRP. Agree with plans as outlined by Dr. Pollard; to OR today as add-on case for reduction with general anesthesia. Continue home medications for HTN; transition to basal/bolus insulin regimen while in hospital and hold her home DM medications perioperatively. MD Yao Simon MD - 11/18/2021 8:43 PM CDT Orthopaedic Surgery History and Physical Exam/Consultation Time consulted: 1814 Time of initial evaluation: 1844 CC: Right hip pain HPI: Bogdan Garnett is a 66 y.o. female with HTN, diabetes, CHF and hx of inflammatory breast cancer s/p b/l mastectomy and chemo who presents to the ED s/p spontaneous right hip d/l with pain to her right hip. Patient reports she was walking in her house when suddenly her right hip gave out. After sustaining the injury, patient reports sudden onset of moderate pain localized to her right hip. The pain is exacerbated with movement and palpation but alleviated with rest, pain medication, and immobilization. Patient denies hitting head during the accident or loss of consciousness. Denies pain in her head, neck, and back. No new numbness/tingling in any extremity. Denies smoking, EtOH abuse, or illicit druguse. She was last seen by Dr. Hassan in March 2021 and it was noted that her constrained liner had disengaged and migrated down her femoral prosthesis. They discussed that she had a higher chance of dislocation and she was understanding of this. Primary Oncologic Diagnosis: Diagnosis in 2010 with inflammatory breast cancer with known metastases Prior Surgical Procedures: ? 2011: Bilateral mastectomies ? 1353-3143: Several soft tissue procedures including resection of an 5th rib on the right and rightchest wall secondary to osteomyelitis then treated by IV antibiotics with Merrem for 8 weeks and 1 year of p.o. suppressive therapy ? Total of 18 surgeries for her breasts to include bilateral pectoral flaps ? 06/14/2019: Right total hip arthroplasty by Dr. Jordan; implants: DP [place] acetabular shell size 54 with a 36 mm neutral liner, size 36+ 1.5 ceramic head and 6 high offset [place] stem ? 08/22/2019: Revision right total hip arthroplasty secondary to fall with periprosthetic fracture on the femur; Dr. Jordan; [employer] reclaim stem 16 x 190 with a size 80 mm proximal body, 45 mm offset neck and a 1.5 ceramic head and 5 cables ? 04/15/2020: Revision right total hip to constrained proximal femur replacement ([place]) Radiation Therapy: Chemotherapy: Completed and on surveillance therapy with tumor markers Past Medical History: Past Medical History: Diagnosis Date ??? Arthritis ??? Cancer (HCC) ??? Congestive heart failure (CHF) (HCC) ??? Depression ??? Diabetes mellitus (HCC) ??? High blood pressure Past Surgical History: Past Surgical History: Procedure Laterality Date ??? [...] by Kasey Hassan MD at ADULT OR Family History: Family History Problem Relation Age of Onset ??? Diabetes Mother ??? Cancer Mother ??? Stroke Mother ??? Dementia Father ??? Stroke Father ??? No Known Problems Sister Social History: Social History Socioeconomic History ??? Marital status: [...] on file Housing Stability: Not on file Allergies: Compazine [prochlorperazine edisylate], Nitrofurantoin, Prochlorperazine, Other, Vancomycin, Adhesive, and Mycin [macrolides and ketolides] Medications: (Not in a hospital admission) Review of Systems: Constitutional: negative for subjective fevers, chills, night sweats HEENT: negative for headache or vision changes CV: negative for chest pain or palpitations Resp: negative for SOB GI: negative for nausea, vomiting, diarrhea, constipation, abdominal pain : negative for dysuria MSK: per HPI Skin: negative for rashes Neuro: negative for gait disturbance Heme: negative for easy bruising or history of DVT/PE Objective: Vital Signs: BP 120/73 (Patient Position: Lying) Pulse 81 Temp 97.3 ??F (36.3 ??C) (Oral) Resp16 Ht 1.727 m (5' 8) Wt (!) 141.5 kg (312 lb) SpO2 93% BMI 47.44 kg/m?? Physical Exam: General: WD/WN female in NAD HENT: NC/AT, mucous membranes moist, nares patent Eyes: PERRLA, EOMI, conjunctiva w/ no injection or icterus Neck: Supple, trachea midline Cardiac: Normal rate, regular rhythm Pulmonary: Symmetrical chest rise Abdominal: Soft, nontender, nondistended Neuro: Awake, alert, and oriented appropriately Skin: See below Spine: No TTP or step-offs C/T/L RUE: No deformity, TTP, or open wounds Full ROM at all joints SILT Ax/MC/M/R/U 5/5 Ax/MC/AIN/PIN/ULN 2+ Rad/Uln, BCR to exposed fingers LUE: No deformity, TTP, or open wounds Full ROM at all joints SILT Ax/MC/M/R/U 5/5 Ax/MC/AIN/PIN/ULN +2 Rad/Uln, BCR to exposed fingers RLE: Leg was shortened and externally rotated, moderate TTP to hip, no open wounds, incision well healed from prior SAMIR Full ROM at all joints except hip and knee due to pain SILT T/Hilario/Sa/DP/SP/Fem 5/5 EHL/FHL/GS/TA +2 DP/PT, BCR to exposed toes LLE: No deformity, TTP, or open wounds Full ROM at all joints SILT T/Hilario/Sa/DP/SP/Fem 5/5 EHL/FHL/GS/TA +2 DP/PT, BCR to exposed toes Radiographic studies: XR Knee Right 3 Views Final Result IMPRESSION: Dislocation of the right hip arthroplasty. No acute fracture or dislocation of the distal femur or knee. RESIDENT RADIOLOGIST: Jim Butler M.D. ATTENDING RADIOLOGIST: Pedro Mckeon M.D. I have personally reviewed the image(s) and the resident's interpretations, performed any necessary editing, and agree with the findings of this report. XR Hip WWO Pelvis Right 2 or 3 Views Final Result IMPRESSION: Dislocation of the right hip arthroplasty. No acute fracture or dislocation of the distal femur or knee. RESIDENT RADIOLOGIST: Jim Butler M.D. ATTENDING RADIOLOGIST: Pedro Mckeon M.D. I have personally reviewed the image(s) and the resident's interpretations, performed any necessary editing, and agree with the findings of this report. XR Femur Right Min 2 Views Final Result IMPRESSION: Dislocation of the right hip arthroplasty. No acute fracture or dislocation of the distal femur or knee. RESIDENT RADIOLOGIST: Jim Luke, M.D. ATTENDING RADIOLOGIST: Pedro Mckeon M.D. I have personally reviewed the image(s) and the resident's interpretations, performed any necessary editing, and agree with the findings of this report. Labs: Lab Results Component Value Date WBC 7.2 11/18/2021 HGB 12.5 11/18/2021 HCT 40.2 11/18/2021 MCV 92.0 11/18/2021 PLT 242 11/18/2021 Lab Results Component Value Date CREATININE 1.07 (H) 11/18/2021 BUN 22.8 11/18/2021 NA 138 11/18/2021 K 4.1 11/18/2021 CL 100 11/18/2021 CO2 24 11/18/2021 No components found for: PT, APTT, INR Lab Results Component Value Date SEDRATE 19.0 04/10/2020 CRP 1.60 (H) 04/10/2020 No results found for: POCLAC A/P: Bogdan Garnett is a 66 y.o. female s/p spontaneous right prosthetic hip dislocation. Other injuries: none. ?? Imaging reviewed ?? Procedures - none ?? Will require sedation in the OR with anesthesia for open vs closed reduction of right prosthetic hip dislocation ?? Informed consent obtained from patient and scanned into chart, under Media tab in [employer] ?? Follow up pre-op labs ?? Diet - NPO at [place] ?? Pain control ?? DVT prophylaxis - chemoprophylaxis per primary team, SCD's while in bed for mechanical prophylaxis ?? PT/OT evaluate and treat when stable ?? Weight-bearing status: NWB to right lower extremity ?? Tertiary exam complete, no additional musculoskeletal injuries identified Dispo: Admit to Medicine - appreciate assistance with medical comanagement. Plan for closed vs open reduction of right prosthetic hip dislocation, likely tomorrow as timing and OR availability permits. Marlon Ford MD Orthopaedic Surgery Associated attestation - Blas Armendariz MD - 11/20/2021 12:59 PM CDT I saw and examined the patient and agree with the resident plan, History of right proximal femoral replacement and was doing well and very active with recent dislocation while walking at home to prepare for a coffee libertarian with her friends. She denies fevers or chills. Right Proximal femoral replacement and constrained liner for absent ulnrfetnd08/1/2020 Patient is unable to ambulate at this time and we discussed her treatment options, she opts for a revision procedure. We will plan to interrogate her femoral stem and acetabular shell. If stable will replace constrained liner. Cultures will be obtained at the time of surgery. Inflammatory markers elevated but recent history of covid infection documented in this encounter Consult Notes Sadi Jordan RN - 11/25/2021 1:45 PM CDTAssociated Order(s): IP CONSULT TO SOCIAL WORK outreach manager received a consult for acute rehab. Per discussion with the patient and her son, referral sent to [facility] for evaluation for rehab via [facility]. PRANEETH Bernal, RN, [facility] Shellfish Bed Worker II [phone] documented in this encounter ED Notes Laureen Lala RN - 11/19/2021 3:57 PM CDT Report called to [facility]. Pt belongings w/ daughter in law. Pt transported on home CPAP Pamella Balbuena MD - 11/18/2021 4:37 PM CDT History Chief Complaint Patient presents with ??? Hip Pain Hip pain today. Hx of of hip replacement with multiple dislocations HPI Ms. Garnett is a 66 y/o obese WF w/ PMHx significant for inflammatory breast cancer (s/p bilateral mastectomies, 18 chest wall surgeries, and chemo), HTN, diabetes, CHF, and depression complaining of right hip pain since this morning. She had a R total hip arthroplasty at [facility] in 2019 w/ 2 subsequent revisions w/ the last one occurring Apr 2020 at [facility] by Dr. Hassan. This morning, she felt her right leg give out and was then unable to put any weight on her right leg. She denies any trauma or falls prior to or after the episode. She called Dr. Hassan's office and was told to come to [facility] for evaluation. She denies any recent fevers/chills, abdominal/chest pain, N/V/D, and leg swelling. HISTORY: History documented here is for the purposes of medical decision making and the ED physician note. Itwill NOT file to the patient's permanent history.: Past Medical History: Diabetes: Yes Diabetes is currently be treated with oral diabetic medication. Is patient compliant with current medication(s): Yes HTN: Yes [place]: No Cancer: Yes (inflammatory breast cancer) Social History: Tobacco: No tobacco use ETOH: No Illicit Drugs: No Past Medical History: Diagnosis Date ??? Arthritis ??? Cancer (HCC) ??? Congestive heart failure (CHF) (HCC) ??? Depression ??? Diabetes mellitus (HCC) ??? High blood pressure Past Surgical History: Procedure Laterality Date ??? [...] by Kasey Hassan MD at ADULT OR Family History Problem Relation Age of Onset ??? Diabetes Mother ??? Cancer Mother ??? Stroke Mother ??? Dementia Father ??? Stroke Father ??? No Known Problems Sister Social History Tobacco Use ??? Smoking status: Never Smoker ??? Smokeless tobacco: Never Used Vaping Use ??? Vaping Use: never used Substance Use Topics ??? Alcohol use: Yes Comment: 1-2 socially ??? Drug use: Never Review of Systems Constitutional: Negative for chills and fever. HENT: Negative for ear pain and sore throat. Eyes: Negative for pain and visual disturbance. Respiratory: Negative for cough and shortness of breath. Cardiovascular: Negative for chest pain and palpitations. Gastrointestinal: Negative for abdominal pain and vomiting. Genitourinary: Negative for dysuria and hematuria. Musculoskeletal: Positive for arthralgias and gait problem. Negative for back pain. Skin: Negative for color change and rash. Neurological: Negative for dizziness, seizures, syncope and light-headedness. All other systems reviewed and are negative. Physical Exam BP 127/75 Pulse 82 Temp 97.3 ??F (36.3 ??C) (Oral) Resp 16 Ht 1.727 m (5' 8) Wt (!) 141.5kg (312 lb) SpO2 96% BMI 47.44 kg/m?? Physical Exam Vitals and nursing note reviewed. Constitutional: General: She is not in acute distress. Appearance: She is well-developed. She is obese. HENT: Head: Normocephalic and atraumatic. Mouth/Throat: Mouth: Mucous membranes are moist. Pharynx: Oropharynx is clear. No oropharyngeal exudate or posterior oropharyngeal erythema. Eyes: Extraocular Movements: Extraocular movements intact. Conjunctiva/sclera: Conjunctivae normal. Pupils: Pupils are equal, round, and reactive to light. Cardiovascular: Rate and Rhythm: Normal rate and regular rhythm. Heart sounds: Heart sounds are distant. No murmur heard. Pulmonary: Effort: Pulmonary effort is normal. No respiratory distress. Breath sounds: Normal breath sounds. Abdominal: General: Bowel sounds are normal. Palpations: Abdomen is soft. Tenderness: There is no abdominal tenderness. Musculoskeletal: Cervical back: Neck supple. Right hip: Deformity and tenderness present. Decreased range of motion. Decreased strength. Left hip: Normal. Skin: General: Skin is warm and dry. Neurological: Mental Status: She is alert. ED Course Procedures MDM 66 y/o obese WF w/ PMHx significant for inflammatory breast cancer (s/p bilateral mastectomies, 18 chest wall surgeries, and chemo), HTN, diabetes, CHF, and depression complaining of right hip pain x1 day. VS stable on initial presentation. Physical exam significant for visible right hip deformity w/ a ssociated pain, decreased ROM, and RLE weakness. Basic labs ordered and resulted as below. Xray significant for right hip dislocation. Possibility of need for conscious sedation for hip reduction discussed with patient who disclosed extensive surgical history w/ history of previous difficulties w/ sedation including needing higher doses of anesthesia to remain sedated. Ortho consulted and recommendeddiscussing bedside conscious sedation w/ anesthesia. Discussed w/ anesthesia who will not perform bedside sedation due to patient's sedation history and comorbidities. Ortho will take to the OR for closed reduction w/ anesthesia later. Ortho not comfortable admitting patient due to her comorbidities. Medicine paged for admission. Clinical Impressions Final diagnoses: Closed dislocation of right hip, initial encounter ([facility]) Right hip pain Plan ED Disposition ED Disposition Admit Condition -- Comment -- Discharge information if applicable: Discharge Medications Unreviewed Medications * amoxicillin 500 mg capsule Take Amoxicillin 1gm 30 minutes prior to dental procedure Indications: Infection of the Skin and/or Soft Tissue Quantity: 4 capsule Refills: 0 Commonly known as: AMOXIL * amoxicillin 500 mg capsule TAKE AMOXICILLIN 2GM 1HR PRIOR TO DENTAL PROCEDURE Indications: Infection of the Skin and/or Soft Tissue Quantity: 4 capsule Refills: 1 Commonly known as: AMOXIL AZO Cranberry 250-30 MG Tabs Refills: 0 AZO-CRANBERRY PO Refills: 0 benzonatate 100 mg capsule Refills: 0 Commonly known as: TESSALON * Biotin 69099 MCG Tabs Refills: 0 * Biotin 1 MG Caps Refills: 0 * BREO ELLIPTA IN Refills: 0 * Breo Ellipta 100-25 MCG/INH Aepb Refills: 0 Generic drug: Fluticasone Furoate-Vilanterol calcium-vitamin D 500-200 MG-UNIT per tablet Refills: 0 clonazePAM 0.5 mg tablet Refills: 0 Commonly known as: KLONOPIN colesevelam 625 MG tablet Refills: 0 Commonly known as: WELCHOL cyclobenzaprine 10 mg tablet Refills: 0 Commonly known as: FLEXERIL dicyclomine 10 mg capsule Refills: 0 Commonly known as: BENTYL * ELDERBERRY PO Refills: 0 * Elderberry 575 MG/5ML Syrp Refills: 0 ferrous sulfate 325 (65 FE) MG EC tablet Refills: 0 fluconazole 100 MG tablet Refills: 0 Commonly known as: DIFLUCAN furosemide 40 mg tablet Refills: 0 Commonly known as: LASIX * HYDROcodone-acetaminophen 5-325 MG per tablet Refills: 0 Commonly known as: NORCO * HYDROcodone-acetaminophen 10-325 MG per tablet Refills: 0 Commonly known as: NORCO metFORMIN 500 mg tablet Refills: 0 Commonly known as: GLUCOPHAGE * mirtazapine 15 mg tablet Refills: 0 Commonly known as: REMERON * mirtazapine 30 MG tablet Refills: 0 Commonly known as: REMERON Multi-Vitamin Daily Tabs Refills: 0 nebivolol 5 MG tablet Refills: 0 Commonly known as: BYSTOLIC ondansetron 4 mg tablet Refills: 0 Commonly known as: ZOFRAN potassium chloride SA 20 mEq tablet Refills: 0 Commonly known as: K-DUR,KLOR-CON * Probiotic-10 Ultimate Caps Refills: 0 * CULTURELLE PROBIOTICS PO Refills: 0 promethazine 12.5 MG tablet Refills: 0 Commonly known as: PHENERGAN rOPINIRole 2 MG tablet Refills: 0 Commonly known as: REQUIP telmisartan 80 MG tablet Refills: 0 Commonly known as: MICARDIS telmisartan-hydrochlorothiazide 80-25 MG per tablet Refills: 0 Commonly known as: MICARDIS HCT temazepam 30 MG capsule Refills: 0 Commonly known as: RESTORIL TURMERIC PO Refills: 0 venlafaxine 150 mg 24 hr capsule Refills: 0 Commonly known as: EFFEXOR-XR vitamin C 1000 MG tablet Refills: 0 * There are duplicate medications prescribed to the patient Pamella Balbuena MD Resident 11/18/21 6001 Associated attestation - Rasheeda Fernandes Jr., MD - 11/27/2021 5:16 PM CDT ATTENDING NOTE I performed a History and Physical Exam on Bogdan Garnett and discussed findings and management of care with emergency medicine resident(s). I agree with history, physical, assessment, and plan of care as documented in their note. Additions: Patient is a 66-year-old female with a history of breast cancer, hypertension, diabetes, and heart failure presents emergency department with a dislocation of an artificial right hip. The patient is neurovascularly intact on exam. The patient received analgesics in the emergency department. The orthopedic service was consulted for evaluation. Given the patient's age comorbidities Mallampati score, the patient was not a candidate for conscious sedation did not have a immediate limb threatening injuryrequiring immediate reduction. The anesthesia service was consulted and agreed the patient was best served in the operating room. The orthopedic service requested admission to Internal Medicine for 24 h ours with a planned closed reduction to be performed under anesthesia the following day. Medical Emergency: Yes Critical Care Time: None I was present and supervised the following procedures: None Final Diagnosis: 1. Closed dislocation of right hip, initial encounter ([facility]) Acute 2. Right hip pain Acute 3. Dislocation of hip joint prosthesis, initial encounter ([facility]) Janes Mas RN - 11/18/2021 4:21 PM CDT Pt placed in gown. MD at bedside. documented in this encounter Miscellaneous Notes Plan of Care - Juan Esposito RN - 11/27/2021 1:00 PM CDT Discharge information discussed with patient. Patient verbalizes understanding and has no questions at this time. Patient provided with written copy of discharge instructions and prescriptions. Patientto be discharged to [facility] via stretcher driven by patient transport. Patient to be discharged with RLE wound vac intact. Plan of Care - Juan Esposito RN - 11/27/2021 12:37 PM CDT Problem: Pain - Adult Goal: Verbalizes/displays adequate comfort level or baseline comfort level Description: INTERVENTIONS: 1. Encourage pt to monitor pain and request assistance 2. Assess pain using appropriate pain scale 3. Administer analgesics based on type and severity of pain and evaluate response 4. Implement non-pharmacological measures as appropriate and evaluate response 5. Consider cultural and social influences on pain and pain management 6. Notify health care provider if interventions unsuccessful or patient reports new pain 7. Assess effect of pain on daily activities Outcome: Progressing Problem: Adult Fall Risk and [place] Fall Precautions Goal: Fall risk and related injury risk are minimized Description: INTERVENTIONS: Score the patient using the 1. (HDS) upon admission, each shift, and with any change in the patient's condition and with any transfer. 2. Determine the fall risk category the patient belongs to based on the HDS score. Use this score category to begin the fall prevention and injury reduction plan for this patient. 3. Routinely assess patient's environment for factors that could cause or contribute to falls. 4. Communicate with the assigned transporter the deficits that place the patient at risk for falls to ensure continued use/facilitation of appropriate interventions for that patient and notify receiving areas of high fall risk. 5. Educate patient and family about the risk of falling, safety issues, and their mobility limitations. 6. Teach patient to make position changes slowly. 7. [place] patients to their bed areas, unit facilities, and how to get assistance. 8. Educate patient and family regarding the armband procedure. Instruct patient & family about fall prevention measures to use at home. 9. Patient education materials to be given to patient and family. Outcome: Progressing Goal: [place] Fall Precautions (all patients) Description: INTERVENTIONS: 1. Call light/ belongings in reach. 2. Bed in low position and locked. 3. Wheelchairs and chairs locked. 4. SR up X2. 5. Ensure adequate lighting. 6. Clutter free and spill free environment. 7. Educate on purpose of universal fall precautions. 8. Educate to call for assistance. 9. Keep closet and bathroom doors closed when not in use. 10. Use of footwear: a) use nonslip footwear unless patient has a shuffling gait. b) patients with shuffling gait-avoid thick soled shoes with rubber toes. c) ensure proper fit of personal footwear from home. Outcome: Progressing Problem: Line Access Goal: To have a patent line Description: INTERVENTIONS: 1. Assess site for bleeding, swelling, or other site complications. 2. Change IV tubing per policy. 3. Notify health care provider of changes. 4. Educate patient/family on purpose and care. Outcome: Progressing Problem: Communication Barrier (hearing, visual, language) Goal: Communicates in a manner that can be understood by others Description: INTERVENTIONS: 1. Utilize surgeon assistant services for communication if needed 2. Provide written communication in preferred language when possible 3. Educate patient/caregiver on surgeon assistant services when appropriate Outcome: Progressing Problem: Behavior Goal: Pt/Family maintain appropriate behavior Description: INTERVENTIONS: 1. Assess patient/family???s coping skills and non-compliant behavior (including use of illegal substances). 2. Notify security of behavior or suspected illegal substances which indicate the need for search ofthe patient and/or belongings. 3. Encourage verbalization of thoughts and concerns in a socially appropriate manner. 4. Utilize positive, consistent limit setting strategies supporting safety of patient, staff and others. 5. Encourage participation in the decision making process. 6. If a patient???s behavior jeopardizes the safety of the patient, staff, or others refer to organization policy. If a visitor???s behavior poses a threat to safety call refer to organization policy. 7. Initiate consult with Erosion Control Specialist or Pastoral/Spiritual Care as appropriate. Outcome: Progressing Problem: Musculoskeletal - Adult Goal: Return mobility to safest level of function Description: INTERVENTIONS: 1. Assess patient stability and activity tolerance for standing, transferring and ambulating with orwithout assistive devices. 2. Assist with transfers and ambulation using safe patient handling equipment as needed. 3. Ensure adequate protection for wounds/incisions during mobilization. 4. Obtain PT/OT consults as needed. 5. Instruct patient/family in ordered activity level. Outcome: Progressing Problem: Adult [place] Fall Precautions Goal: [place] Fall Precautions (Adults) Description: Implement [place] Fall Precautions Place call light, belongings, bedside table, within the patient's reach Urinal within reach (male patients) Bed in low position and locked Wheelchairs and chairs locked Side rails up X 2 Clutter free, spill free environment Bathroom and closet doors closed when not is use Non-slip socks/footwear Ensure ambulating assistive devices (walker, cane, crutches) are within reach. Outcome: Progressing Problem: High Fall Risk Goal: High fall risk and related injury risks are minimized Description: Implement [place] Fall Precautions - Scheduled rounding/offer toileting Q 2 hours and ensure bed/chair alarm is activated - Do not leave patient unattended while toileting or in the bathroom - Side rails up X 3 - ICU - Side rails up X 4 - Activate the bed or chair alarm Consider setting bed alarm zone to the middle zone #2 - Ensure the bed alarm is connected to the call light system - Place fall mats on one or both sides of the bed - Place fall mat in front of the chair while patient is out of the bed - Move patient closer to the nursing station if a room is available - Leave curtains or door open for patient observation - Place Fall Risk sign outside the patient's room Outcome: Progressing Plan of Care - Juan Esposito RN - 11/27/2021 12:25 PM CDT Report called to [facility]. Plan of Care - Ashleigh Martini LPN - 11/27/2021 2:17 AM CDT Problem: Pain - Adult Goal: Verbalizes/displays adequate comfort level or baseline comfort level Description: INTERVENTIONS: 1. Encourage pt to monitor pain and request assistance 2. Assess pain using appropriate pain scale 3. Administer analgesics based on type and severity of pain and evaluate response 4. Implement non-pharmacological measures as appropriate and evaluate response 5. Consider cultural and social influences on pain and pain management 6. Notify health care provider if interventions unsuccessful or patient reports new pain 7. Assess effect of pain on daily activities Outcome: Progressing Problem: Infection - Adult Goal: Absence of infection during hospitalization Description: INTERVENTIONS: 1. Assess and monitor for signs and symptoms of infection 2. Monitor lab/diagnostic results 3. Monitor all insertion sites i.e., indwelling lines, tubes and drains 4. Monitor endotracheal/tracheostomy (as able) and nasal secretions for changes in amount and color 5. Initiate appropriate cooling/warming therapies per order 6. Administer medications as ordered 7. Instruct and encourage patient and family to use good hand hygiene technique and personal protective equipment (PPE) as appropriate 8. Identify and instruct in appropriate isolation precautions for identified infection/condition Outcome: Progressing Problem: Adult Fall Risk and [place] Fall Precautions Goal: [place] Fall Precautions (all patients) Description: INTERVENTIONS: 1. Call light/ belongings in reach. 2. Bed in low position and locked. 3. Wheelchairs and chairs locked. 4. SR up X2. 5. Ensure adequate lighting. 6. Clutter free and spill free environment. 7. Educate on purpose of universal fall precautions. 8. Educate to call for assistance. 9. Keep closet and bathroom doors closed when not in use. 10. Use of footwear: a) use nonslip footwear unless patient has a shuffling gait. b) patients with shuffling gait-avoid thick soled shoes with rubber toes. c) ensure proper fit of personal footwear from home. Outcome: Progressing Plan of Care - Juan Esposito RN - 11/26/2021 11:50 AM CDT Problem: Pain - Adult Goal: Verbalizes/displays adequate comfort level or baseline comfort level Description: INTERVENTIONS: 1. Encourage pt to monitor pain and request assistance 2. Assess pain using appropriate pain scale 3. Administer analgesics based on type and severity of pain and evaluate response 4. Implement non-pharmacological measures as appropriate and evaluate response 5. Consider cultural and social influences on pain and pain management 6. Notify health care provider if interventions unsuccessful or patient reports new pain 7. Assess effect of pain on daily activities Outcome: Progressing Problem: Infection - Adult Goal: Absence of infection during hospitalization Description: INTERVENTIONS: 1. Assess and monitor for signs and symptoms of infection 2. Monitor lab/diagnostic results 3. Monitor all insertion sites i.e., indwelling lines, tubes and drains 4. Monitor endotracheal/tracheostomy (as able) and nasal secretions for changes in amount and color 5. Initiate appropriate cooling/warming therapies per order 6. Administer medications as ordered 7. Instruct and encourage patient and family to use good hand hygiene technique and personal protective equipment (PPE) as appropriate 8. Identify and instruct in appropriate isolation precautions for identified infection/condition Outcome: Progressing Problem: Adult Fall Risk and [place] Fall Precautions Goal: Fall risk and related injury risk are minimized Description: INTERVENTIONS: Score the patient using the 1. (HDS) upon admission, each shift, and with any change in the patient's condition and with any transfer. 2. Determine the fall risk category the patient belongs to based on the HDS score. Use this score category to begin the fall prevention and injury reduction plan for this patient. 3. Routinely assess patient's environment for factors that could cause or contribute to falls. 4. Communicate with the assigned transporter the deficits that place the patient at risk for falls to ensure continued use/facilitation of appropriate interventions for that patient and notify receiving areas of high fall risk. 5. Educate patient and family about the risk of falling, safety issues, and their mobility limitations. 6. Teach patient to make position changes slowly. 7. [place] patients to their bed areas, unit facilities, and how to get assistance. 8. Educate patient and family regarding the armband procedure. Instruct patient & family about fall prevention measures to use at home. 9. Patient education materials to be given to patient and family. Outcome: Progressing Goal: [place] Fall Precautions (all patients) Description: INTERVENTIONS: 1. Call light/ belongings in reach. 2. Bed in low position and locked. 3. Wheelchairs and chairs locked. 4. SR up X2. 5. Ensure adequate lighting. 6. Clutter free and spill free environment. 7. Educate on purpose of universal fall precautions. 8. Educate to call for assistance. 9. Keep closet and bathroom doors closed when not in use. 10. Use of footwear: a) use nonslip footwear unless patient has a shuffling gait. b) patients with shuffling gait-avoid thick soled shoes with rubber toes. c) ensure proper fit of personal footwear from home. Outcome: Progressing Problem: Line Access Goal: To have a patent line Description: INTERVENTIONS: 1. Assess site for bleeding, swelling, or other site complications. 2. Change IV tubing per policy. 3. Notify health care provider of changes. 4. Educate patient/family on purpose and care. Outcome: Progressing Problem: Communication Barrier (hearing, visual, language) Goal: Communicates in a manner that can be understood by others Description: INTERVENTIONS: 1. Utilize surgeon assistant services for communication if needed 2. Provide written communication in preferred language when possible 3. Educate patient/caregiver on surgeon assistant services when appropriate Outcome: Progressing Goal: Expresses thoughts and feelings in a coherent, logical, goal-directed manner Description: INTERVENTIONS: 1. Clarify understanding of patient's communication 2. Give patient ample time to respond Outcome: Progressing Problem: Decision Making Goal: Pt/Family able to effectively weigh alternatives and participate in decision making related totreatment and care Description: INTERVENTIONS: 1. Determine when there are differences between patient's view, family's view, and healthcare provider's view of condition. 2. Facilitate patient and family articulation of goals for care. 3. Help patient and family identify pros/cons of alternative solutions. 4. Provide information as requested by patient/family. 5. Respect patient/family right to receive or not to receive information. 6. Serve as a liaison between patient and family and health care team. 7. Initiate Pastoral/Spiritual Care or Palliative Care consults or initiate Family Care Conference as is appropriate. Outcome: Progressing Problem: Behavior Goal: Pt/Family maintain appropriate behavior Description: INTERVENTIONS: 1. Assess patient/family???s coping skills and non-compliant behavior (including use of illegal substances). 2. Notify security of behavior or suspected illegal substances which indicate the need for search ofthe patient and/or belongings. 3. Encourage verbalization of thoughts and concerns in a socially appropriate manner. 4. Utilize positive, consistent limit setting strategies supporting safety of patient, staff and others. 5. Encourage participation in the decision making process. 6. If a patient???s behavior jeopardizes the safety of the patient, staff, or others refer to organization policy. If a visitor???s behavior poses a threat to safety call refer to organization policy. 7. Initiate consult with Erosion Control Specialist or Pastoral/Spiritual Care as appropriate. Outcome: Progressing Problem: Metabolic/Fluid and Electrolytes - Adult Goal: Electrolytes maintained within normal limits Description: INTERVENTIONS: 1. Monitor labs and assess patient for signs and symptoms of electrolyte imbalances. 2. Administer electrolyte replacement as ordered. 3. Monitor response to electrolyte replacements, including repeat lab results as appropriate. 4. Fluid restriction as ordered. 5. Instruct patient on fluid and nutrition restrictions as appropriate. Outcome: Progressing Problem: High Fall Risk Goal: High fall risk and related injury risks are minimized Description: Implement [place] Fall Precautions - Scheduled rounding/offer toileting Q 2 hours and ensure bed/chair alarm is activated - Do not leave patient unattended while toileting or in the bathroom - Side rails up X 3 - ICU - Side rails up X 4 - Activate the bed or chair alarm Consider setting bed alarm zone to the middle zone #2 - Ensure the bed alarm is connected to the call light system - Place fall mats on one or both sides of the bed - Place fall mat in front of the chair while patient is out of the bed - Move patient closer to the nursing station if a room is available - Leave curtains or door open for patient observation - Place Fall Risk sign outside the patient's room Outcome: Progressing Plan of Care - Olive Barrera PT, DPT - 11/26/2021 11:43 AM CDT Problem: Physical Therapy - Adult Goal: By Discharge: Performs mobility at highest level of function for planned discharge setting. See evaluation for individualized goals. Outcome: Progressing Flowsheets (Taken 11/26/2021 1006) Discharge Recommendations: Acute Rehab Equipment Recommendations: To be determined at next level of care Assessment Comments: pt continues to progress with therapy and was albe to maneuvar Rle off of the bed without assistance this date. pt with slow but steady gait with decreased weight shift onto Rle. Encouraged OOB to chair during the day. will continue to follow while an inpt Duration of Therapy: Continue skilled therapy to address identified problems, as per Plan of Care. Plan of Care - Kasey Randall OTR/L - 11/26/2021 10:05 AM CDT Problem: Occupational Therapy - Adult Goal: By Discharge: Performs self-care activities at highest level of function for planned dischargesetting. See evaluation for individualized goals. Outcome: Progressing Flowsheets (Taken 11/26/2021 1005) OT Discharge Recommendations: Acute Rehab OT Equipment Recommendations: To be determined at next level of care Duration of Therapy: Continue skilled therapy to address identified problems, as per Plan of Care. Ongoing therapy 3-5x/week Plan of Care - Ashleigh Martini LPN - 11/26/2021 3:24 AM CDT Problem: HDS Fall Risk Goal: Decrease risk to fall secondary to Mobility Issues Assessment Score >/=2 Description: INTERVENTIONS: 1.Utilize a bed/ chair fall alarm if patient is MODERATE or HIGH RISK. 2. Use fall mats on one or both sides of the bed or in front of chair when OOB if patient is MODERATE or HIGH RISK. 3. Remove fall mat from floor when patient getting out of bed or chair and replace upon return. 4. Provide assistive device to patients who use at home (walker, cane, etc.). 5. Teach correct assistive device use, importance of using device to ambulate when applicable. 6. Use gait belt when assisting patient to ambulate when not contraindicated. 7. Patients on bedrest should use a bedpan. 8. Low bed position (If using) w/ pt knee at 90 degree angle, feet flat on floor to rise or return to bed. 9. Bedpan w/ 2 assist if 2 staff unavailable; BSC if 2 staff available entire time. 10. Patients requiring assist of 1 for safe ambulation[place] [facility] [place] 11. Use proper positioning assist devices (chair belts, wedges, recliners). 12. Instruct patient/family to exit bed on their strongest side. 13. Schedule physical activity with assistance throughout the day and inform patient/ family of activity schedule. 14. Minimize the use of immobilizing devices such as urinary catheters and restraints. 15. Initiate PT Consult. 16. Provide bed baths for patients on bedrest or those requiring the assistance of 2 or more for safe ambulation. 17. Use a shower chair for patients requiring the assistance of one person and do not leave alone while in the shower. 18. Ensure that ambulating patients have mobile IV pole if applicable. 19. Reduce environmental triggers causing dizziness a) Cool room, transport comfort measures, dangle before stand b) No helium balloons c) Alter environment to avoid movements causing dizziness Outcome: Progressing Problem: Pain - Adult Goal: Verbalizes/displays adequate comfort level or baseline comfort level Description: INTERVENTIONS: 1. Encourage pt to monitor pain and request assistance 2. Assess pain using appropriate pain scale 3. Administer analgesics based on type and severity of pain and evaluate response 4. Implement non-pharmacological measures as appropriate and evaluate response 5. Consider cultural and social influences on pain and pain management 6. Notify health care provider if interventions unsuccessful or patient reports new pain 7. Assess effect of pain on daily activities Outcome: Progressing Problem: Infection - Adult Goal: Absence of infection during hospitalization Description: INTERVENTIONS: 1. Assess and monitor for signs and symptoms of infection 2. Monitor lab/diagnostic results 3. Monitor all insertion sites i.e., indwelling lines, tubes and drains 4. Monitor endotracheal/tracheostomy (as able) and nasal secretions for changes in amount and color 5. Initiate appropriate cooling/warming therapies per order 6. Administer medications as ordered 7. Instruct and encourage patient and family to use good hand hygiene technique and personal protective equipment (PPE) as appropriate 8. Identify and instruct in appropriate isolation precautions for identified infection/condition Outcome: Progressing Plan of Care - Radha Rizzo RN - 11/25/2021 6:08 PM CDT Problem: [place] At Risk (score 15-18) Goal: Skin intergrity is maintained or improved Description: INTERVENTIONS: 1. If bed bound, reposition every 2 hours. If chair bound, reposition every hour 2. Increase mobility and activity for immobile patients 3. Elevate heels off bed surface and avoid skin to skin contact 4. Keep HOB at a 30 degree angle or lower unless otherwise indicated by MD adjunct sociology professor 5. Manage moisture, nutrition, and friction and shear 6. Use pressure reduction device if bed or chair bound Outcome: Progressing Problem: HDS Fall Risk Goal: Decrease risk to fall secondary to Mobility Issues Assessment Score >/=2 Description: INTERVENTIONS: 1.Utilize a bed/ chair fall alarm if patient is MODERATE or HIGH RISK. 2. Use fall mats on one or both sides of the bed or in front of chair when OOB if patient is MODERATE or HIGH RISK. 3. Remove fall mat from floor when patient getting out of bed or chair and replace upon return. 4. Provide assistive device to patients who use at home (walker, cane, etc.). 5. Teach correct assistive device use, importance of using device to ambulate when applicable. 6. Use gait belt when assisting patient to ambulate when not contraindicated. 7. Patients on bedrest should use a bedpan. 8. Low bed position (If using) w/ pt knee at 90 degree angle, feet flat on floor to rise or return to bed. 9. Bedpan w/ 2 assist if 2 staff unavailable; BSC if 2 staff available entire time. 10. Patients requiring assist of 1 for safe ambulation- BSC. 11. Use proper positioning assist devices (chair belts, wedges, recliners). 12. Instruct patient/family to exit bed on their strongest side. 13. Schedule physical activity with assistance throughout the day and inform patient/ family of activity schedule. 14. Minimize the use of immobilizing devices such as urinary catheters and restraints. 15. Initiate PT Consult. 16. Provide bed baths for patients on bedrest or those requiring the assistance of 2 or more for safe ambulation. 17. Use a shower chair for patients requiring the assistance of one person and do not leave alone while in the shower. 18. Ensure that ambulating patients have mobile IV pole if applicable. 19. Reduce environmental triggers causing dizziness a) Cool room, transport comfort measures, dangle before stand b) No helium balloons c) Alter environment to avoid movements causing dizziness Outcome: Progressing Goal: Decrease risk to fall secondary to Volume/Electrolyte status Assessment score >/=2 Description: INTERVENTIONS: 1. Collaborate with physician and pharmacist to assess need for orthostatic hypotension (OH) evaluation: PROCEDURE 1. Have the patient lie down for 5 minutes. 2. Measure blood pressure and pulse rate. 3. Have the patient stand. 4. Repeat blood pressure and pulse rate measurements after standing 1 and 3 minutes. EVALUATION of OH: A drop in BP of ?20 mm Hg, or in diastolic BP of ?10 mm Hg, or experiencing lightheadedness or dizziness is considered abnormal. For positive OH findings: a) Notify MD/Provider. b) Teach patient to rise slowly/ raise the HOB slowly when assisting pts OOB. c) Teach patient to dangle and pump calves before rising. d) Teach patient to lockstitch machine operator place before beginning to ambulate. e) Teach patient to sit back down if they feel weak or dizzy. f) Avoid situations that create urgency for patients with OH. g) Provide bed bath for patients with OH. h) Ensure proper hydration. 2. Patients with low blood sugars or hypotension should be toileted using a bedpan. 3. Teach patient to dangle before rising if hypotensive. 4. Ensure that the patient remains hydrated. 5. Monitor abnormal lab values. 6. Advance diet as tolerated when applicable to minimize use of intravenous and enteral feeds. 7.*Administer medications as ordered for n/v and provide interventions to prevent/minimize n/v. 8. Ensure that IV tubing length does not create risk for falls. 9. Collaborate with care team to ensure IV fluids are appropriate to patient's current condition. 10. *If diabetic, monitor blood sugars and facilitate interventions to maintain appropriate blood sugars. Outcome: Progressing Goal: High Risk (HDS score >/=15) Description: INTERVENTIONS: 1. 1. Follow universal fall precautions (UFPs). 2. Individualize HD Falls Care Plan. 3. Place FALL RISK ID band on patient. 4. Provide patient/family education based on risk assessment using the HDS. 5. Instruct patient/ family to call staff for assistance when getting out of bed or accessing out ofreach items. 6. Place RED Fall Precaution signage outside patient door. 7. Place patient in a room closer to the nursing station if available. 8. Use bed alarm/mat in bed, chair alarm if OOB in chair or in transport. 9. Connect bed alarm to call light when possible. 10. Place fall mats on one or both sides of the bed or in front of chair when OOB. 11. Do not leave patients unattended while toileting or in the bathroom. Outcome: Progressing Goal: Decrease risk to fall secondary to Medication Issues Assessment Score >/=2 Description: Decrease risk to fall secondary to medication issues. INTERVENTIONS: 1. Toilet patient before giving pain medication. 2. Avoid showering or bathing after giving pain medications. 3. Frequent/regular toileting for pt. on diuretics/laxatives. 4. Adjust adult remedial education instructor per side effects (i.e., Lasix to be given in AM). 5. Collaborate with physician and pharmacist to assess need for orthostatic hypotension (OH) evaluation: PROCEDURE 1. Have the patient lie down for 5 minutes. 2. Measure blood pressure and pulse rate. 3. Have the patient stand. 4. Repeat blood pressure and pulse rate measurements after standing 1 and 3 minutes. Evaluation of Orthostatic Hypotension (OH) - A drop in BP of greater than 20 mm Hg OR in diastolic BP of greater than 10 mm Hg OR experiencing lightheadedness or dizziness is considered abnormal. For positive OH findings: a) Notify MD/Provider b) Teach patient to rise slowly/ raise the HOB slowly when assisting pts OOB c) Teach patient to dangle and pump calves before rising d) Teach patient to lockstitch machine operator place before beginning to ambulate e) Teach patient to sit back down if they feel weak or dizzy f) Avoid situations that create urgency for patients with OH g) Provide bed bath for patients with OH. h) Ensure adequate hydration. 6. Limit prn combo med when possible (ex., sedative, analgesics, etc.). 7. Review medications daily with [id number] and family and educate on side effects. 8. Interprofessional collaboration for meds to dc or lower dose Outcome: Progressing Goal: Decrease risk to fall secondary to Toileting Issues Assessment Score >/=2 Description: INTERVENTIONS: 1. Do not leave patients unattended while toileting. 2. Hypotensive patients should be toileted using a bedpan. 3. Patients with incontinence should wear a brief or a dung-pad when ambulating or traveling off theunit. 4. Patients with low blood sugars should be toileted using a bedpan. 5.Toilet prior to giving pain medications. 6. Toilet patient at regular and frequent intervals. 7. Provide frequent toileting opportunities to patients who are receiving laxatives & diuretics. 8. Instruct male patients prone to dizziness to void while sitting (use urinal when necessary). 9.Instruct patients/family on the use of grab bars and to call for assistance when toileting. 10. Obtain elevated toilet seat or bedside commode (BSC) if needed and place the BSC parallel to bedwith bed in front of BSC when in use. 11. Ensure catheter bag is placed below bladder level to promote drainage. 12. Assess need for continued urinary catheter use. 13. Ensure adequate bowel/bladder function by providing sufficient fluid and fiber as allowed by diet. Outcome: Progressing Problem: Pain - Adult Goal: Verbalizes/displays adequate comfort level or baseline comfort level Description: INTERVENTIONS: 1. Encourage pt to monitor pain and request assistance 2. Assess pain using appropriate pain scale 3. Administer analgesics based on type and severity of pain and evaluate response 4. Implement non-pharmacological measures as appropriate and evaluate response 5. Consider cultural and social influences on pain and pain management 6. Notify health care provider if interventions unsuccessful or patient reports new pain 7. Assess effect of pain on daily activities Outcome: Progressing Problem: Infection - Adult Goal: Absence of infection during hospitalization Description: INTERVENTIONS: 1. Assess and monitor for signs and symptoms of infection 2. Monitor lab/diagnostic results 3. Monitor all insertion sites i.e., indwelling lines, tubes and drains 4. Monitor endotracheal/tracheostomy (as able) and nasal secretions for changes in amount and color 5. Initiate appropriate cooling/warming therapies per order 6. Administer medications as ordered 7. Instruct and encourage patient and family to use good hand hygiene technique and personal protective equipment (PPE) as appropriate 8. Identify and instruct in appropriate isolation precautions for identified infection/condition Outcome: Progressing Problem: Adult Fall Risk and [place] Fall Precautions Goal: Fall risk and related injury risk are minimized Description: INTERVENTIONS: Score the patient using the 1. (HDS) upon admission, each shift, and with any change in the patient's condition and with any transfer. 2. Determine the fall risk category the patient belongs to based on the HDS score. Use this score category to begin the fall prevention and injury reduction plan for this patient. 3. Routinely assess patient's environment for factors that could cause or contribute to falls. 4. Communicate with the assigned transporter the deficits that place the patient at risk for falls to ensure continued use/facilitation of appropriate interventions for that patient and notify receiving areas of high fall risk. 5. Educate patient and family about the risk of falling, safety issues, and their mobility limitations. 6. Teach patient to make position changes slowly. 7. [place] patients to their bed areas, unit facilities, and how to get assistance. 8. Educate patient and family regarding the armband procedure. Instruct patient & family about fall prevention measures to use at home. 9. Patient education materials to be given to patient and family. Outcome: Progressing Goal: [place] Fall Precautions (all patients) Description: INTERVENTIONS: 1. Call light/ belongings in reach. 2. Bed in low position and locked. 3. Wheelchairs and chairs locked. 4. SR up X2. 5. Ensure adequate lighting. 6. Clutter free and spill free environment. 7. Educate on purpose of universal fall precautions. 8. Educate to call for assistance. 9. Keep closet and bathroom doors closed when not in use. 10. Use of footwear: a) use nonslip footwear unless patient has a shuffling gait. b) patients with shuffling gait-avoid thick soled shoes with rubber toes. c) ensure proper fit of personal footwear from home. Outcome: Progressing Problem: Line Access Goal: To have a patent line Description: INTERVENTIONS: 1. Assess site for bleeding, swelling, or other site complications. 2. Change IV tubing per policy. 3. Notify health care provider of changes. 4. Educate patient/family on purpose and care. Outcome: Progressing Problem: Communication Barrier (hearing, visual, language) Goal: Communicates in a manner that can be understood by others Description: INTERVENTIONS: 1. Utilize surgeon assistant services for communication if needed 2. Provide written communication in preferred language when possible 3. Educate patient/caregiver on surgeon assistant services when appropriate Outcome: Progressing Goal: Expresses thoughts and feelings in a coherent, logical, goal-directed manner Description: INTERVENTIONS: 1. Clarify understanding of patient's communication 2. Give patient ample time to respond Outcome: Progressing Problem: Anxiety Goal: Will report anxiety at manageable levels Description: INTERVENTIONS: 1. Administer medication as ordered 2. Teach and rehearse alternative coping skills 3. Provide emotional support with 1:1 interaction with staff 4. Explain treatment plan 5. Encourage patient participation in care 6. [place] patient to unit and surroundings Outcome: Progressing Problem: Decision Making Goal: Pt/Family able to effectively weigh alternatives and participate in decision making related totreatment and care Description: INTERVENTIONS: 1. Determine when there are differences between patient's view, family's view, and healthcare provider's view of condition. 2. Facilitate patient and family articulation of goals for care. 3. Help patient and family identify pros/cons of alternative solutions. 4. Provide information as requested by patient/family. 5. Respect patient/family right to receive or not to receive information. 6. Serve as a liaison between patient and family and health care team. 7. Initiate Pastoral/Spiritual Care or Palliative Care consults or initiate Family Care Conference as is appropriate. Outcome: Progressing Problem: Behavior Goal: Pt/Family maintain appropriate behavior Description: INTERVENTIONS: 1. Assess patient/family???s coping skills and non-compliant behavior (including use of illegal substances). 2. Notify security of behavior or suspected illegal substances which indicate the need for search ofthe patient and/or belongings. 3. Encourage verbalization of thoughts and concerns in a socially appropriate manner. 4. Utilize positive, consistent limit setting strategies supporting safety of patient, staff and others. 5. Encourage participation in the decision making process. 6. If a patient???s behavior jeopardizes the safety of the patient, staff, or others refer to organization policy. If a visitor???s behavior poses a threat to safety call refer to organization policy. 7. Initiate consult with Erosion Control Specialist or Pastoral/Spiritual Care as appropriate. Outcome: Progressing Problem: Respiratory - Adult Goal: Patient's airway will be maintained Description: INTERVENTIONS: 1. Perform airway assessment. 2. Suction airway to clear secretions. 3. Encourage patient to cough strongly to mobilize secretions. 4. For tracheostomy, keep obturator and spare tracheostomy tube at bedside. Outcome: Progressing Goal: Ability to express needs and understand communication Description: INTERVENTIONS: 1. Assess patient's ability to understand information. 2. Assess patient's communication skills. 3. Provide alternate method of communication (picture boards, pen/paper,etc.) if needed. 4. Encourage patient to communicate. 5. Consider MAKEUP ARTIST consult Outcome: Progressing Problem: Metabolic/Fluid and Electrolytes - Adult Goal: Electrolytes maintained within normal limits Description: INTERVENTIONS: 1. Monitor labs and assess patient for signs and symptoms of electrolyte imbalances. 2. Administer electrolyte replacement as ordered. 3. Monitor response to electrolyte replacements, including repeat lab results as appropriate. 4. Fluid restriction as ordered. 5. Instruct patient on fluid and nutrition restrictions as appropriate. Outcome: Progressing Goal: Glucose maintained within prescribed range Description: INTERVENTIONS: 1. Monitor Blood Glucose as ordered. 2. Assess for signs and symptoms of hyperglycemia and hypoglycemia. 3. Administer ordered medications to maintain glucose within prescribed range. 4. Assess barriers to adequate nutritional intake and initiate nutrition consult as needed. 5. Instruct patient on self management of diabetes and initiate consult as needed. 6. Initiate consult for Portrait Photographer. Outcome: Progressing Problem: Skin/Tissue Integrity - Adult Goal: Incisions, wounds, or drain sites healing without S/S of infection Description: INTERVENTIONS 1. ADMISSION & EVERY SHIFT: Assess and document risk factors for pressure ulcer development. 2. EVERY SHIFT: Assess and document skin integrity. 3. EVERY SHIFT: Assess and document dressing/incision, wound bed, drain sites and surrounding tissue. 4. Implement wound care per orders. 5. Initiate isolation precautions as appropriate. 6. Initiate Pressure Ulcer order set as indicated. Outcome: Progressing Problem: Musculoskeletal - Adult Goal: Return mobility to safest level of function Description: INTERVENTIONS: 1. Assess patient stability and activity tolerance for standing, transferring and ambulating with orwithout assistive devices. 2. Assist with transfers and ambulation using safe patient handling equipment as needed. 3. Ensure adequate protection for wounds/incisions during mobilization. 4. Obtain PT/OT consults as needed. 5. Instruct patient/family in ordered activity level. Outcome: Progressing Goal: Maintain proper alignment of affected body part Description: INTERVENTIONS: 1. Support and protect limb and body alignment per healthcare provider's orders. 2. Instruct and reinforce with patient and family use of appropriate assistive device and precautions (e.g. spinal or hip dislocation precautions). Outcome: Progressing Problem: Adult [place] Fall Precautions Goal: [place] Fall Precautions (Adults) Description: Implement [place] Fall Precautions Place call light, belongings, bedside table, within the patient's reach Urinal within reach (male patients) Bed in low position and locked Wheelchairs and chairs locked Side rails up X 2 Clutter free, spill free environment Bathroom and closet doors closed when not is use Non-slip socks/footwear Ensure ambulating assistive devices (walker, cane, crutches) are within reach. Outcome: Progressing Problem: Discharge Planning - Care Management Goal: Discharge to post-acute care or home with appropriate resources Description: INTERVENTIONS: 1. Conduct assessment to determine patient/family and health care team treatment goals, and need forpost-acute services based on payer coverage, community resources, and patient preferences, and barriers to discharge. 2. Address psychosocial, clinical, and financial barriers to discharge as identified in assessment in conjunction with the patient/family and health care team. 3. Arrange appropriate level of post-acute services according to patient???s needs and preference and payer coverage in collaboration with the physician and health care team. 4. Communicate with and update the patient/family, physician, and health care team regarding progress on the discharge plan. 5. Arrange appropriate transportation to post-acute venues. Outcome: Progressing Plan of Care - Sadi Jordan RN - 11/25/2021 1:41 PM CDT Problem: Discharge Planning - Care Management Goal: Discharge to post-acute care or home with appropriate resources Description: INTERVENTIONS: 1. Conduct assessment to determine patient/family and health care team treatment goals, and need forpost-acute services based on payer coverage, community resources, and patient preferences, and barriers to discharge. 2. Address psychosocial, clinical, and financial barriers to discharge as identified in assessment in conjunction with the patient/family and health care team. 3. Arrange appropriate level of post-acute services according to patient???s needs and preference and payer coverage in collaboration with the physician and health care team. 4. Communicate with and update the patient/family, physician, and health care team regarding progress on the discharge plan. 5. Arrange appropriate transportation to post-acute venues. 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 Mechanic Phone Number Cammy Garnett, daughter, Primary Care Information Primary Care Physician's Name Anabelle Yost Primary Care Physician's Number [phone] Pharmacy's Name [facility] Pharmacy's Number [phone] Activities of Daily Living- Prior to Admission Assistive Device/Equipment Cane;Rolling Walker;Wheelchair;Bedside commode;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 No Antepartum/ Antepartum/ No Plan of Care - Olive Barrera PT, DPT - 11/25/2021 11:57 AM CDT Problem: Physical Therapy - Adult Goal: By Discharge: Performs mobility at highest level of function for planned discharge setting. See evaluation for individualized goals. Outcome: Progressing Flowsheets (Taken 11/25/2021 0856) Discharge Recommendations: Acute Rehab Equipment Recommendations: To be determined at next level of care Assessment Comments: Mobility improved this date and pt tolerated ambulation into castro with walker. pt left sitting up in joint chair and encouraged pt to increase OOB. pt would benefit from continued therapy for t/f training, gait training to return to PLOF. will continue to follow while an inpt Duration of Therapy: Continue skilled therapy to address identified problems, as per Plan of Care. Plan of Care - Kasey Randall OTR/L - 11/25/2021 8:55 AM CDT Problem: Occupational Therapy - Adult Goal: By Discharge: Performs self-care activities at highest level of function for planned dischargesetting. See evaluation for individualized goals. Outcome: Progressing Flowsheets (Taken 11/25/2021 0855) OT Discharge Recommendations: Acute Rehab OT Equipment Recommendations: To be determined at next level of care Duration of Therapy: Continue skilled therapy to address identified problems, as per Plan of Care. Ongoing therapy 3-5x/week Plan of Care - Ashleigh Martini LPN - 11/25/2021 6:11 AM CDT Problem: Pain - Adult Goal: Verbalizes/displays adequate comfort level or baseline comfort level Description: INTERVENTIONS: 1. Encourage pt to monitor pain and request assistance 2. Assess pain using appropriate pain scale 3. Administer analgesics based on type and severity of pain and evaluate response 4. Implement non-pharmacological measures as appropriate and evaluate response 5. Consider cultural and social influences on pain and pain management 6. Notify health care provider if interventions unsuccessful or patient reports new pain 7. Assess effect of pain on daily activities Outcome: Progressing Problem: Infection - Adult Goal: Absence of infection during hospitalization Description: INTERVENTIONS: 1. Assess and monitor for signs and symptoms of infection 2. Monitor lab/diagnostic results 3. Monitor all insertion sites i.e., indwelling lines, tubes and drains 4. Monitor endotracheal/tracheostomy (as able) and nasal secretions for changes in amount and color 5. Initiate appropriate cooling/warming therapies per order 6. Administer medications as ordered 7. Instruct and encourage patient and family to use good hand hygiene technique and personal protective equipment (PPE) as appropriate 8. Identify and instruct in appropriate isolation precautions for identified infection/condition Outcome: Progressing Problem: Adult Fall Risk and [place] Fall Precautions Goal: [place] Fall Precautions (all patients) Description: INTERVENTIONS: 1. Call light/ belongings in reach. 2. Bed in low position and locked. 3. Wheelchairs and chairs locked. 4. SR up X2. 5. Ensure adequate lighting. 6. Clutter free and spill free environment. 7. Educate on purpose of universal fall precautions. 8. Educate to call for assistance. 9. Keep closet and bathroom doors closed when not in use. 10. Use of footwear: a) use nonslip footwear unless patient has a shuffling gait. b) patients with shuffling gait-avoid thick soled shoes with rubber toes. c) ensure proper fit of personal footwear from home. Outcome: Progressing Plan of Care - Radha Rizzo RN - 11/24/2021 12:49 PM CDT Problem: [place] At Risk (score 15-18) Goal: Skin intergrity is maintained or improved Description: INTERVENTIONS: 1. If bed bound, reposition every 2 hours. If chair bound, reposition every hour 2. Increase mobility and activity for immobile patients 3. Elevate heels off bed surface and avoid skin to skin contact 4. Keep HOB at a 30 degree angle or lower unless otherwise indicated by MD adjunct sociology professor 5. Manage moisture, nutrition, and friction and shear 6. Use pressure reduction device if bed or chair bound Outcome: Progressing Problem: HDS Fall Risk Goal: Decrease risk to fall secondary to Mobility Issues Assessment Score >/=2 Description: INTERVENTIONS: 1.Utilize a bed/ chair fall alarm if patient is MODERATE or HIGH RISK. 2. Use fall mats on one or both sides of the bed or in front of chair when OOB if patient is MODERATE or HIGH RISK. 3. Remove fall mat from floor when patient getting out of bed or chair and replace upon return. 4. Provide assistive device to patients who use at home (walker, cane, etc.). 5. Teach correct assistive device use, importance of using device to ambulate when applicable. 6. Use gait belt when assisting patient to ambulate when not contraindicated. 7. Patients on bedrest should use a bedpan. 8. Low bed position (If using) w/ pt knee at 90 degree angle, feet flat on floor to rise or return to bed. 9. Bedpan w/ 2 assist if 2 staff unavailable; BSC if 2 staff available entire time. 10. Patients requiring assist of 1 for safe ambulation- BSC. 11. Use proper positioning assist devices (chair belts, wedges, recliners). 12. Instruct patient/family to exit bed on their strongest side. 13. Schedule physical activity with assistance throughout the day and inform patient/ family of activity schedule. 14. Minimize the use of immobilizing devices such as urinary catheters and restraints. 15. Initiate PT Consult. 16. Provide bed baths for patients on bedrest or those requiring the assistance of 2 or more for safe ambulation. 17. Use a shower chair for patients requiring the assistance of one person and do not leave alone while in the shower. 18. Ensure that ambulating patients have mobile IV pole if applicable. 19. Reduce environmental triggers causing dizziness a) Cool room, transport comfort measures, dangle before stand b) No helium balloons c) Alter environment to avoid movements causing dizziness Outcome: Progressing Goal: Decrease risk to fall secondary to Volume/Electrolyte status Assessment score >/=2 Description: INTERVENTIONS: 1. Collaborate with physician and pharmacist to assess need for orthostatic hypotension (OH) evaluation: PROCEDURE 1. Have the patient lie down for 5 minutes. 2. Measure blood pressure and pulse rate. 3. Have the patient stand. 4. Repeat blood pressure and pulse rate measurements after standing 1 and 3 minutes. EVALUATION of OH: A drop in BP of ?20 mm Hg, or in diastolic BP of ?10 mm Hg, or experiencing lightheadedness or dizziness is considered abnormal. For positive OH findings: a) Notify MD/Provider. b) Teach patient to rise slowly/ raise the HOB slowly when assisting pts OOB. c) Teach patient to dangle and pump calves before rising. d) Teach patient to lockstitch machine operator place before beginning to ambulate. e) Teach patient to sit back down if they feel weak or dizzy. f) Avoid situations that create urgency for patients with OH. g) Provide bed bath for patients with OH. h) Ensure proper hydration. 2. Patients with low blood sugars or hypotension should be toileted using a bedpan. 3. Teach patient to dangle before rising if hypotensive. 4. Ensure that the patient remains hydrated. 5. Monitor abnormal lab values. 6. Advance diet as tolerated when applicable to minimize use of intravenous and enteral feeds. 7.*Administer medications as ordered for n/v and provide interventions to prevent/minimize n/v. 8. Ensure that IV tubing length does not create risk for falls. 9. Collaborate with care team to ensure IV fluids are appropriate to patient's current condition. 10. *If diabetic, monitor blood sugars and facilitate interventions to maintain appropriate blood sugars. Outcome: Progressing Goal: High Risk (HDS score >/=15) Description: INTERVENTIONS: 1. 1. Follow universal fall precautions (UFPs). 2. Individualize HD Falls Care Plan. 3. Place FALL RISK ID band on patient. 4. Provide patient/family education based on risk assessment using the HDS. 5. Instruct patient/ family to call staff for assistance when getting out of bed or accessing out ofreach items. 6. Place RED Fall Precaution signage outside patient door. 7. Place patient in a room closer to the nursing station if available. 8. Use bed alarm/mat in bed, chair alarm if OOB in chair or in transport. 9. Connect bed alarm to call light when possible. 10. Place fall mats on one or both sides of the bed or in front of chair when OOB. 11. Do not leave patients unattended while toileting or in the bathroom. Outcome: Progressing Goal: Decrease risk to fall secondary to Medication Issues Assessment Score >/=2 Description: Decrease risk to fall secondary to medication issues. INTERVENTIONS: 1. Toilet patient before giving pain medication. 2. Avoid showering or bathing after giving pain medications. 3. Frequent/regular toileting for pt. on diuretics/laxatives. 4. Adjust adult remedial education instructor per side effects (i.e., Lasix to be given in AM). 5. Collaborate with physician and pharmacist to assess need for orthostatic hypotension (OH) evaluation: PROCEDURE 1. Have the patient lie down for 5 minutes. 2. Measure blood pressure and pulse rate. 3. Have the patient stand. 4. Repeat blood pressure and pulse rate measurements after standing 1 and 3 minutes. Evaluation of Orthostatic Hypotension (OH) - A drop in BP of greater than 20 mm Hg OR in diastolic BP of greater than 10 mm Hg OR experiencing lightheadedness or dizziness is considered abnormal. For positive OH findings: a) Notify MD/Provider b) Teach patient to rise slowly/ raise the HOB slowly when assisting pts OOB c) Teach patient to dangle and pump calves before rising d) Teach patient to lockstitch machine operator place before beginning to ambulate e) Teach patient to sit back down if they feel weak or dizzy f) Avoid situations that create urgency for patients with OH g) Provide bed bath for patients with OH. h) Ensure adequate hydration. 6. Limit prn combo med when possible (ex., sedative, analgesics, etc.). 7. Review medications daily with patien+[id number] and family and educate on side effects. 8. Interprofessional collaboration for meds to dc or lower dose Outcome: Progressing Goal: Decrease risk to fall secondary to Toileting Issues Assessment Score >/=2 Description: INTERVENTIONS: 1. Do not leave patients unattended while toileting. 2. Hypotensive patients should be toileted using a bedpan. 3. Patients with incontinence should wear a brief or a dung-pad when ambulating or traveling off theit. 4. Patients with low blood sugars should be toileted using a bedpan. 5.Toilet prior to giving pain medications. 6. Toilet patient at regular and frequent intervals. 7. Provide frequent toileting opportunities to patients who are receiving laxatives & diuretics. 8. Instruct male patients prone to dizziness to void while sitting (use urinal when necessary). 9.Instruct patients/family on the use of grab bars and to call for assistance when toileting. 10. Obtain elevated toilet seat or bedside commode (BSC) if needed and place the BSC parallel to bedwith bed in front of BSC when in use. 11. Ensure catheter bag is placed below bladder level to promote drainage. 12. Assess need for continued urinary catheter use. 13. Ensure adequate bowel/bladder function by providing sufficient fluid and fiber as allowed by diet. Outcome: Progressing Problem: Pain - Adult Goal: Verbalizes/displays adequate comfort level or baseline comfort level Description: INTERVENTIONS: 1. Encourage pt to monitor pain and request assistance 2. Assess pain using appropriate pain scale 3. Administer analgesics based on type and severity of pain and evaluate response 4. Implement non-pharmacological measures as appropriate and evaluate response 5. Consider cultural and social influences on pain and pain management 6. Notify health care provider if interventions unsuccessful or patient reports new pain 7. Assess effect of pain on daily activities Outcome: Progressing Problem: Infection - Adult Goal: Absence of infection during hospitalization Description: INTERVENTIONS: 1. Assess and monitor for signs and symptoms of infection 2. Monitor lab/diagnostic results 3. Monitor all insertion sites i.e., indwelling lines, tubes and drains 4. Monitor endotracheal/tracheostomy (as able) and nasal secretions for changes in amount and color 5. Initiate appropriate cooling/warming therapies per order 6. Administer medications as ordered 7. Instruct and encourage patient and family to use good hand hygiene technique and personal protective equipment (PPE) as appropriate 8. Identify and instruct in appropriate isolation precautions for identified infection/condition Outcome: Progressing Problem: Adult Fall Risk and [place] Fall Precautions Goal: Fall risk and related injury risk are minimized Description: INTERVENTIONS: Score the patient using the 1. (HDS) upon admission, each shift, and with any change in the patient's condition and with any transfer. 2. Determine the fall risk category the patient belongs to based on the HDS score. Use this score category to begin the fall prevention and injury reduction plan for this patient. 3. Routinely assess patient's environment for factors that could cause or contribute to falls. 4. Communicate with the assigned transporter the deficits that place the patient at risk for falls to ensure continued use/facilitation of appropriate interventions for that patient and notify receiving areas of high fall risk. 5. Educate patient and family about the risk of falling, safety issues, and their mobility limitations. 6. Teach patient to make position changes slowly. 7. [place] patients to their bed areas, unit facilities, and how to get assistance. 8. Educate patient and family regarding the armband procedure. Instruct patient & family about fall prevention measures to use at home. 9. Patient education materials to be given to patient and family. Outcome: Progressing Goal: [place] Fall Precautions (all patients) Description: INTERVENTIONS: 1. Call light/ belongings in reach. 2. Bed in low position and locked. 3. Wheelchairs and chairs locked. 4. SR up X2. 5. Ensure adequate lighting. 6. Clutter free and spill free environment. 7. Educate on purpose of universal fall precautions. 8. Educate to call for assistance. 9. Keep closet and bathroom doors closed when not in use. 10. Use of footwear: a) use nonslip footwear unless patient has a shuffling gait. b) patients with shuffling gait-avoid thick soled shoes with rubber toes. c) ensure proper fit of personal footwear from home. Outcome: Progressing Problem: Line Access Goal: To have a patent line Description: INTERVENTIONS: 1. Assess site for bleeding, swelling, or other site complications. 2. Change IV tubing per policy. 3. Notify health care provider of changes. 4. Educate patient/family on purpose and care. Outcome: Progressing Problem: Communication Barrier (hearing, visual, language) Goal: Communicates in a manner that can be understood by others Description: INTERVENTIONS: 1. Utilize surgeon assistant services for communication if needed 2. Provide written communication in preferred language when possible 3. Educate patient/caregiver on surgeon assistant services when appropriate Outcome: Progressing Goal: Expresses thoughts and feelings in a coherent, logical, goal-directed manner Description: INTERVENTIONS: 1. Clarify understanding of patient's communication 2. Give patient ample time to respond Outcome: Progressing Problem: Anxiety Goal: Will report anxiety at manageable levels Description: INTERVENTIONS: 1. Administer medication as ordered 2. Teach and rehearse alternative coping skills 3. Provide emotional support with 1:1 interaction with staff 4. Explain treatment plan 5. Encourage patient participation in care 6. [place] patient to unit and surroundings Outcome: Progressing Problem: Decision Making Goal: Pt/Family able to effectively weigh alternatives and participate in decision making related totreatment and care Description: INTERVENTIONS: 1. Determine when there are differences between patient's view, family's view, and healthcare provider's view of condition. 2. Facilitate patient and family articulation of goals for care. 3. Help patient and family identify pros/cons of alternative solutions. 4. Provide information as requested by patient/family. 5. Respect patient/family right to receive or not to receive information. 6. Serve as a liaison between patient and family and health care team. 7. Initiate Pastoral/Spiritual Care or Palliative Care consults or initiate Family Care Conference as is appropriate. Outcome: Progressing Problem: Behavior Goal: Pt/Family maintain appropriate behavior Description: INTERVENTIONS: 1. Assess patient/family???s coping skills and non-compliant behavior (including use of illegal substances). 2. Notify security of behavior or suspected illegal substances which indicate the need for search ofthe patient and/or belongings. 3. Encourage verbalization of thoughts and concerns in a socially appropriate manner. 4. Utilize positive, consistent limit setting strategies supporting safety of patient, staff and others. 5. Encourage participation in the decision making process. 6. If a patient???s behavior jeopardizes the safety of the patient, staff, or others refer to organization policy. If a visitor???s behavior poses a threat to safety call refer to organization policy. 7. Initiate consult with Erosion Control Specialist or Pastoral/Spiritual Care as appropriate. Outcome: Progressing Problem: Respiratory - Adult Goal: Patient's airway will be maintained Description: INTERVENTIONS: 1. Perform airway assessment. 2. Suction airway to clear secretions. 3. Encourage patient to cough strongly to mobilize secretions. 4. For tracheostomy, keep obturator and spare tracheostomy tube at bedside. Outcome: Progressing Goal: Ability to express needs and understand communication Description: INTERVENTIONS: 1. Assess patient's ability to understand information. 2. Assess patient's communication skills. 3. Provide alternate method of communication (picture boards, pen/paper,etc.) if needed. 4. Encourage patient to communicate. 5. Consider MAKEUP ARTIST consult Outcome: Progressing Problem: Metabolic/Fluid and Electrolytes - Adult Goal: Electrolytes maintained within normal limits Description: INTERVENTIONS: 1. Monitor labs and assess patient for signs and symptoms of electrolyte imbalances. 2. Administer electrolyte replacement as ordered. 3. Monitor response to electrolyte replacements, including repeat lab results as appropriate. 4. Fluid restriction as ordered. 5. Instruct patient on fluid and nutrition restrictions as appropriate. Outcome: Progressing Goal: Glucose maintained within prescribed range Description: INTERVENTIONS: 1. Monitor Blood Glucose as ordered. 2. Assess for signs and symptoms of hyperglycemia and hypoglycemia. 3. Administer ordered medications to maintain glucose within prescribed range. 4. Assess barriers to adequate nutritional intake and initiate nutrition consult as needed. 5. Instruct patient on self management of diabetes and initiate consult as needed. 6. Initiate consult for Portrait Photographer. Outcome: Progressing Problem: Skin/Tissue Integrity - Adult Goal: Incisions, wounds, or drain sites healing without S/S of infection Description: INTERVENTIONS 1. ADMISSION & EVERY SHIFT: Assess and document risk factors for pressure ulcer development. 2. EVERY SHIFT: Assess and document skin integrity. 3. EVERY SHIFT: Assess and document dressing/incision, wound bed, drain sites and surrounding tissue. 4. Implement wound care per orders. 5. Initiate isolation precautions as appropriate. 6. Initiate Pressure Ulcer order set as indicated. Outcome: Progressing Problem: Musculoskeletal - Adult Goal: Return mobility to safest level of function Description: INTERVENTIONS: 1. Assess patient stability and activity tolerance for standing, transferring and ambulating with orwithout assistive devices. 2. Assist with transfers and ambulation using safe patient handling equipment as needed. 3. Ensure adequate protection for wounds/incisions during mobilization. 4. Obtain PT/OT consults as needed. 5. Instruct patient/family in ordered activity level. Outcome: Progressing Goal: Maintain proper alignment of affected body part Description: INTERVENTIONS: 1. Support and protect limb and body alignment per healthcare provider's orders. 2. Instruct and reinforce with patient and family use of appropriate assistive device and precautions (e.g. spinal or hip dislocation precautions). Outcome: Progressing Plan of Care - Jillian Tesfaye PT - 11/24/2021 11:07 AM CDT Problem: Physical Therapy - Adult Goal: By Discharge: Performs mobility at highest level of function for planned discharge setting. See evaluation for individualized goals. Outcome: Progressing Flowsheets (Taken 11/24/2021 1107) Discharge Recommendations: Acute Rehab Equipment Recommendations: To be determined at next level of care Assessment Comments: Pt with improved mobility and transfers this date. Pt required min A of 1 person to get to EOB with HOB elevated. Pt able to stand from EOB with RW and min A of 1. Pt progressed toambulation with RW today 10' x 1 but c/o dizziness. Pt was left sitting EOB with lunch tray with family present in room. Pt with improved activity tolerance today and required less assistance with all mobility. Will continue to follow pt and progress tx as tolerated. Duration of Therapy: Continue skilled therapy to address identified problems, as per Plan of Care. Plan of Care - Kasey Randall OTR/L - 11/24/2021 11:06 AM CDT Problem: Occupational Therapy - Adult Goal: By Discharge: Performs self-care activities at highest level of function for planned dischargesetting. See evaluation for individualized goals. Outcome: Progressing Flowsheets (Taken 11/24/2021 1106) OT Discharge Recommendations: Acute Rehab OT Equipment Recommendations: To be determined at next level of care Assessment Comments: Pt tolerated tx well today and is making good progress with therapy. Recommend acute rehab for maximum rehab potential. Duration of Therapy: Continue skilled therapy to address identified problems, as per Plan of Care. Ongoing therapy 3-5x/week Plan of Care - Kiara Kiran RN - 11/24/2021 1:28 AM CDT Problem: HDS Fall Risk Goal: Decrease risk to fall secondary to Mobility Issues Assessment Score >/=2 Description: INTERVENTIONS: 1.Utilize a bed/ chair fall alarm if patient is MODERATE or HIGH RISK. 2. Use fall mats on one or both sides of the bed or in front of chair when OOB if patient is MODERATE or HIGH RISK. 3. Remove fall mat from floor when patient getting out of bed or chair and replace upon return. 4. Provide assistive device to patients who use at home (walker, cane, etc.). 5. Teach correct assistive device use, importance of using device to ambulate when applicable. 6. Use gait belt when assisting patient to ambulate when not contraindicated. 7. Patients on bedrest should use a bedpan. 8. Low bed position (If using) w/ pt knee at 90 degree angle, feet flat on floor to rise or return to bed. 9. Bedpan w/ 2 assist if 2 staff unavailable; BSC if 2 staff available entire time. 10. Patients requiring assist of 1 for safe ambulation- BSC. 11. Use proper positioning assist devices (chair belts, wedges, recliners). 12. Instruct patient/family to exit bed on their strongest side. 13. Schedule physical activity with assistance throughout the day and inform patient/ family of activity schedule. 14. Minimize the use of immobilizing devices such as urinary catheters and restraints. 15. Initiate PT Consult. 16. Provide bed baths for patients on bedrest or those requiring the assistance of 2 or more for safe ambulation. 17. Use a shower chair for patients requiring the assistance of one person and do not leave alone while in the shower. 18. Ensure that ambulating patients have mobile IV pole if applicable. 19. Reduce environmental triggers causing dizziness a) Cool room, transport comfort measures, dangle before stand b) No helium balloons c) Alter environment to avoid movements causing dizziness Outcome: Progressing Goal: Decrease risk to fall secondary to Volume/Electrolyte status Assessment score >/=2 Description: INTERVENTIONS: 1. Collaborate with physician and pharmacist to assess need for orthostatic hypotension (OH) evaluation: PROCEDURE 1. Have the patient lie down for 5 minutes. 2. Measure blood pressure and pulse rate. 3. Have the patient stand. 4. Repeat blood pressure and pulse rate measurements after standing 1 and 3 minutes. EVALUATION of OH: A drop in BP of ?20 mm Hg, or in diastolic BP of ?10 mm Hg, or experiencing lightheadedness or dizziness is considered abnormal. For positive OH findings: a) Notify MD/Provider. b) Teach patient to rise slowly/ raise the HOB slowly when assisting pts OOB. c) Teach patient to dangle and pump calves before rising. d) Teach patient to lockstitch machine operator place before beginning to ambulate. e) Teach patient to sit back down if they feel weak or dizzy. f) Avoid situations that create urgency for patients with OH. g) Provide bed bath for patients with OH. h) Ensure proper hydration. 2. Patients with low blood sugars or hypotension should be toileted using a bedpan. 3. Teach patient to dangle before rising if hypotensive. 4. Ensure that the patient remains hydrated. 5. Monitor abnormal lab values. 6. Advance diet as tolerated when applicable to minimize use of intravenous and enteral feeds. 7.*Administer medications as ordered for n/v and provide interventions to prevent/minimize n/v. 8. Ensure that IV tubing length does not create risk for falls. 9. Collaborate with care team to ensure IV fluids are appropriate to patient's current condition. 10. *If diabetic, monitor blood sugars and facilitate interventions to maintain appropriate blood sugars. Outcome: Progressing Goal: High Risk (HDS score >/=15) Description: INTERVENTIONS: 1. 1. Follow universal fall precautions (UFPs). 2. Individualize HD Falls Care Plan. 3. Place FALL RISK ID band on patient. 4. Provide patient/family education based on risk assessment using the HDS. 5. Instruct patient/ family to call staff for assistance when getting out of bed or accessing out ofreach items. 6. Place RED Fall Precaution signage outside patient door. 7. Place patient in a room closer to the nursing station if available. 8. Use bed alarm/mat in bed, chair alarm if OOB in chair or in transport. 9. Connect bed alarm to call light when possible. 10. Place fall mats on one or both sides of the bed or in front of chair when OOB. 11. Do not leave patients unattended while toileting or in the bathroom. Outcome: Progressing Goal: Decrease risk to fall secondary to Medication Issues Assessment Score >/=2 Description: Decrease risk to fall secondary to medication issues. INTERVENTIONS: 1. Toilet patient before giving pain medication. 2. Avoid showering or bathing after giving pain medications. 3. Frequent/regular toileting for pt. on diuretics/laxatives. 4. Adjust adult remedial education instructor per side effects (i.e., Lasix to be given in AM). 5. Collaborate with physician and pharmacist to assess need for orthostatic hypotension (OH) evaluation: PROCEDURE 1. Have the patient lie down for 5 minutes. 2. Measure blood pressure and pulse rate. 3. Have the patient stand. 4. Repeat blood pressure and pulse rate measurements after standing 1 and 3 minutes. Evaluation of Orthostatic Hypotension (OH) - A drop in BP of greater than 20 mm Hg OR in diastolic BP of greater than 10 mm Hg OR experiencing lightheadedness or dizziness is considered abnormal. For positive OH findings: a) Notify MD/Provider b) Teach patient to rise slowly/ raise the HOB slowly when assisting pts OOB c) Teach patient to dangle and pump calves before rising d) Teach patient to lockstitch machine operator place before beginning to ambulate e) Teach patient to sit back down if they feel weak or dizzy f) Avoid situations that create urgency for patients with OH g) Provide bed bath for patients with OH. h) Ensure adequate hydration. 6. Limit prn combo med when possible (ex., sedative, analgesics, etc.). 7. Review medications daily with patien+[id number] and family and educate on side effects. 8. Interprofessional collaboration for meds to dc or lower dose Outcome: Progressing Goal: Decrease risk to fall secondary to Toileting Issues Assessment Score >/=2 Description: INTERVENTIONS: 1. Do not leave patients unattended while toileting. 2. Hypotensive patients should be toileted using a bedpan. 3. Patients with incontinence should wear a brief or a dung-pad when ambulating or traveling off theunit. 4. Patients with low blood sugars should be toileted using a bedpan. 5.Toilet prior to giving pain medications. 6. Toilet patient at regular and frequent intervals. 7. Provide frequent toileting opportunities to patients who are receiving laxatives & diuretics. 8. Instruct male patients prone to dizziness to void while sitting (use urinal when necessary). 9.Instruct patients/family on the use of grab bars and to call for assistance when toileting. 10. Obtain elevated toilet seat or bedside commode (BSC) if needed and place the BSC parallel to bedwith bed in front of BSC when in use. 11. Ensure catheter bag is placed below bladder level to promote drainage. 12. Assess need for continued urinary catheter use. 13. Ensure adequate bowel/bladder function by providing sufficient fluid and fiber as allowed by diet. Outcome: Progressing Problem: Pain - Adult Goal: Verbalizes/displays adequate comfort level or baseline comfort level Description: INTERVENTIONS: 1. Encourage pt to monitor pain and request assistance 2. Assess pain using appropriate pain scale 3. Administer analgesics based on type and severity of pain and evaluate response 4. Implement non-pharmacological measures as appropriate and evaluate response 5. Consider cultural and social influences on pain and pain management 6. Notify health care provider if interventions unsuccessful or patient reports new pain 7. Assess effect of pain on daily activities Outcome: Progressing Problem: Adult Fall Risk and [place] Fall Precautions Goal: Fall risk and related injury risk are minimized Description: INTERVENTIONS: Score the patient using the 1. (HDS) upon admission, each shift, and with any change in the patient's condition and with any transfer. 2. Determine the fall risk category the patient belongs to based on the HDS score. Use this score category to begin the fall prevention and injury reduction plan for this patient. 3. Routinely assess patient's environment for factors that could cause or contribute to falls. 4. Communicate with the assigned transporter the deficits that place the patient at risk for falls to ensure continued use/facilitation of appropriate interventions for that patient and notify receiving areas of high fall risk. 5. Educate patient and family about the risk of falling, safety issues, and their mobility limitations. 6. Teach patient to make position changes slowly. 7. [place] patients to their bed areas, unit facilities, and how to get assistance. 8. Educate patient and family regarding the armband procedure. Instruct patient & family about fall prevention measures to use at home. 9. Patient education materials to be given to patient and family. Outcome: Progressing Goal: [place] Fall Precautions (all patients) Description: INTERVENTIONS: 1. Call light/ belongings in reach. 2. Bed in low position and locked. 3. Wheelchairs and chairs locked. 4. SR up X2. 5. Ensure adequate lighting. 6. Clutter free and spill free environment. 7. Educate on purpose of universal fall precautions. 8. Educate to call for assistance. 9. Keep closet and bathroom doors closed when not in use. 10. Use of footwear: a) use nonslip footwear unless patient has a shuffling gait. b) patients with shuffling gait-avoid thick soled shoes with rubber toes. c) ensure proper fit of personal footwear from home. Outcome: Progressing Problem: Line Access Goal: To have a patent line Description: INTERVENTIONS: 1. Assess site for bleeding, swelling, or other site complications. 2. Change IV tubing per policy. 3. Notify health care provider of changes. 4. Educate patient/family on purpose and care. Outcome: Progressing Plan of Care - Juan Esposito RN - 11/23/2021 1:34 PM CDT Problem: [place] At Risk (score 15-18) Goal: Skin intergrity is maintained or improved Description: INTERVENTIONS: 1. If bed bound, reposition every 2 hours. If chair bound, reposition every hour 2. Increase mobility and activity for immobile patients 3. Elevate heels off bed surface and avoid skin to skin contact 4. Keep HOB at a 30 degree angle or lower unless otherwise indicated by MD adjunct sociology professor 5. Manage moisture, nutrition, and friction and shear 6. Use pressure reduction device if bed or chair bound Outcome: Progressing Problem: HDS Fall Risk Goal: Decrease risk to fall secondary to Mobility Issues Assessment Score >/=2 Description: INTERVENTIONS: 1.Utilize a bed/ chair fall alarm if patient is MODERATE or HIGH RISK. 2. Use fall mats on one or both sides of the bed or in front of chair when OOB if patient is MODERATE or HIGH RISK. 3. Remove fall mat from floor when patient getting out of bed or chair and replace upon return. 4. Provide assistive device to patients who use at home (walker, cane, etc.). 5. Teach correct assistive device use, importance of using device to ambulate when applicable. 6. Use gait belt when assisting patient to ambulate when not contraindicated. 7. Patients on bedrest should use a bedpan. 8. Low bed position (If using) w/ pt knee at 90 degree angle, feet flat on floor to rise or return to bed. 9. Bedpan w/ 2 assist if 2 staff unavailable; BSC if 2 staff available entire time. 10. Patients requiring assist of 1 for safe ambulation- BSC. 11. Use proper positioning assist devices (chair belts, wedges, recliners). 12. Instruct patient/family to exit bed on their strongest side. 13. Schedule physical activity with assistance throughout the day and inform patient/ family of activity schedule. 14. Minimize the use of immobilizing devices such as urinary catheters and restraints. 15. Initiate PT Consult. 16. Provide bed baths for patients on bedrest or those requiring the assistance of 2 or more for safe ambulation. 17. Use a shower chair for patients requiring the assistance of one person and do not leave alone while in the shower. 18. Ensure that ambulating patients have mobile IV pole if applicable. 19. Reduce environmental triggers causing dizziness a) Cool room, transport comfort measures, dangle before stand b) No helium balloons c) Alter environment to avoid movements causing dizziness Outcome: Progressing Goal: Decrease risk to fall secondary to Volume/Electrolyte status Assessment score >/=2 Description: INTERVENTIONS: 1. Collaborate with physician and pharmacist to assess need for orthostatic hypotension (OH) evaluation: PROCEDURE 1. Have the patient lie down for 5 minutes. 2. Measure blood pressure and pulse rate. 3. Have the patient stand. 4. Repeat blood pressure and pulse rate measurements after standing 1 and 3 minutes. EVALUATION of OH: A drop in BP of ?20 mm Hg, or in diastolic BP of ?10 mm Hg, or experiencing lightheadedness or dizziness is considered abnormal. For positive OH findings: a) Notify MD/Provider. b) Teach patient to rise slowly/ raise the HOB slowly when assisting pts OOB. c) Teach patient to dangle and pump calves before rising. d) Teach patient to lockstitch machine operator place before beginning to ambulate. e) Teach patient to sit back down if they feel weak or dizzy. f) Avoid situations that create urgency for patients with OH. g) Provide bed bath for patients with OH. h) Ensure proper hydration. 2. Patients with low blood sugars or hypotension should be toileted using a bedpan. 3. Teach patient to dangle before rising if hypotensive. 4. Ensure that the patient remains hydrated. 5. Monitor abnormal lab values. 6. Advance diet as tolerated when applicable to minimize use of intravenous and enteral feeds. 7.*Administer medications as ordered for n/v and provide interventions to prevent/minimize n/v. 8. Ensure that IV tubing length does not create risk for falls. 9. Collaborate with care team to ensure IV fluids are appropriate to patient's current condition. 10. *If diabetic, monitor blood sugars and facilitate interventions to maintain appropriate blood sugars. Outcome: Progressing Goal: High Risk (HDS score >/=15) Description: INTERVENTIONS: 1. 1. Follow universal fall precautions (UFPs). 2. Individualize HD Falls Care Plan. 3. Place FALL RISK ID band on patient. 4. Provide patient/family education based on risk assessment using the HDS. 5. Instruct patient/ family to call staff for assistance when getting out of bed or accessing out ofreach items. 6. Place RED Fall Precaution signage outside patient door. 7. Place patient in a room closer to the nursing station if available. 8. Use bed alarm/mat in bed, chair alarm if OOB in chair or in transport. 9. Connect bed alarm to call light when possible. 10. Place fall mats on one or both sides of the bed or in front of chair when OOB. 11. Do not leave patients unattended while toileting or in the bathroom. Outcome: Progressing Goal: Decrease risk to fall secondary to Medication Issues Assessment Score >/=2 Description: Decrease risk to fall secondary to medication issues. INTERVENTIONS: 1. Toilet patient before giving pain medication. 2. Avoid showering or bathing after giving pain medications. 3. Frequent/regular toileting for pt. on diuretics/laxatives. 4. Adjust adult remedial education instructor per side effects (i.e., Lasix to be given in AM). 5. Collaborate with physician and pharmacist to assess need for orthostatic hypotension (OH) evaluation: PROCEDURE 1. Have the patient lie down for 5 minutes. 2. Measure blood pressure and pulse rate. 3. Have the patient stand. 4. Repeat blood pressure and pulse rate measurements after standing 1 and 3 minutes. Evaluation of Orthostatic Hypotension (OH) - A drop in BP of greater than 20 mm Hg OR in diastolic BP of greater than 10 mm Hg OR experiencing lightheadedness or dizziness is considered abnormal. For positive OH findings: a) Notify MD/Provider b) Teach patient to rise slowly/ raise the HOB slowly when assisting pts OOB c) Teach patient to dangle and pump calves before rising d) Teach patient to lockstitch machine operator place before beginning to ambulate e) Teach patient to sit back down if they feel weak or dizzy f) Avoid situations that create urgency for patients with OH g) Provide bed bath for patients with OH. h) Ensure adequate hydration. 6. Limit prn combo med when possible (ex., sedative, analgesics, etc.). 7. Review medications daily with patien+[id number] and family and educate on side effects. 8. Interprofessional collaboration for meds to dc or lower dose Outcome: Progressing Goal: Decrease risk to fall secondary to Toileting Issues Assessment Score >/=2 Description: INTERVENTIONS: 1. Do not leave patients unattended while toileting. 2. Hypotensive patients should be toileted using a bedpan. 3. Patients with incontinence should wear a brief or a dung-pad when ambulating or traveling off theunit. 4. Patients with low blood sugars should be toileted using a bedpan. 5.Toilet prior to giving pain medications. 6. Toilet patient at regular and frequent intervals. 7. Provide frequent toileting opportunities to patients who are receiving laxatives & diuretics. 8. Instruct male patients prone to dizziness to void while sitting (use urinal when necessary). 9.Instruct patients/family on the use of grab bars and to call for assistance when toileting. 10. Obtain elevated toilet seat or bedside commode (BSC) if needed and place the BSC parallel to bedwith bed in front of BSC when in use. 11. Ensure catheter bag is placed below bladder level to promote drainage. 12. Assess need for continued urinary catheter use. 13. Ensure adequate bowel/bladder function by providing sufficient fluid and fiber as allowed by diet. Outcome: Progressing Problem: Pain - Adult Goal: Verbalizes/displays adequate comfort level or baseline comfort level Description: INTERVENTIONS: 1. Encourage pt to monitor pain and request assistance 2. Assess pain using appropriate pain scale 3. Administer analgesics based on type and severity of pain and evaluate response 4. Implement non-pharmacological measures as appropriate and evaluate response 5. Consider cultural and social influences on pain and pain management 6. Notify health care provider if interventions unsuccessful or patient reports new pain 7. Assess effect of pain on daily activities Outcome: Progressing Problem: Adult Fall Risk and [place] Fall Precautions Goal: Fall risk and related injury risk are minimized Description: INTERVENTIONS: Score the patient using the 1. (HDS) upon admission, each shift, and with any change in the patient's condition and with any transfer. 2. Determine the fall risk category the patient belongs to based on the HDS score. Use this score category to begin the fall prevention and injury reduction plan for this patient. 3. Routinely assess patient's environment for factors that could cause or contribute to falls. 4. Communicate with the assigned transporter the deficits that place the patient at risk for falls to ensure continued use/facilitation of appropriate interventions for that patient and notify receiving areas of high fall risk. 5. Educate patient and family about the risk of falling, safety issues, and their mobility limitations. 6. Teach patient to make position changes slowly. 7. [place] patients to their bed areas, unit facilities, and how to get assistance. 8. Educate patient and family regarding the armband procedure. Instruct patient & family about fall prevention measures to use at home. 9. Patient education materials to be given to patient and family. Outcome: Progressing Goal: [place] Fall Precautions (all patients) Description: INTERVENTIONS: 1. Call light/ belongings in reach. 2. Bed in low position and locked. 3. Wheelchairs and chairs locked. 4. SR up X2. 5. Ensure adequate lighting. 6. Clutter free and spill free environment. 7. Educate on purpose of universal fall precautions. 8. Educate to call for assistance. 9. Keep closet and bathroom doors closed when not in use. 10. Use of footwear: a) use nonslip footwear unless patient has a shuffling gait. b) patients with shuffling gait-avoid thick soled shoes with rubber toes. c) ensure proper fit of personal footwear from home. Outcome: Progressing Problem: Communication Barrier (hearing, visual, language) Goal: Communicates in a manner that can be understood by others Description: INTERVENTIONS: 1. Utilize surgeon assistant services for communication if needed 2. Provide written communication in preferred language when possible 3. Educate patient/caregiver on surgeon assistant services when appropriate Outcome: Progressing Problem: Behavior Goal: Pt/Family maintain appropriate behavior Description: INTERVENTIONS: 1. Assess patient/family???s coping skills and non-compliant behavior (including use of illegal substances). 2. Notify security of behavior or suspected illegal substances which indicate the need for search ofthe patient and/or belongings. 3. Encourage verbalization of thoughts and concerns in a socially appropriate manner. 4. Utilize positive, consistent limit setting strategies supporting safety of patient, staff and others. 5. Encourage participation in the decision making process. 6. If a patient???s behavior jeopardizes the safety of the patient, staff, or others refer to organization policy. If a visitor???s behavior poses a threat to safety call refer to organization policy. 7. Initiate consult with Erosion Control Specialist or Pastoral/Spiritual Care as appropriate. Outcome: Progressing Problem: Metabolic/Fluid and Electrolytes - Adult Goal: Electrolytes maintained within normal limits Description: INTERVENTIONS: 1. Monitor labs and assess patient for signs and symptoms of electrolyte imbalances. 2. Administer electrolyte replacement as ordered. 3. Monitor response to electrolyte replacements, including repeat lab results as appropriate. 4. Fluid restriction as ordered. 5. Instruct patient on fluid and nutrition restrictions as appropriate. Outcome: Progressing Problem: Skin/Tissue Integrity - Adult Goal: Incisions, wounds, or drain sites healing without S/S of infection Description: INTERVENTIONS 1. ADMISSION & EVERY SHIFT: Assess and document risk factors for pressure ulcer development. 2. EVERY SHIFT: Assess and document skin integrity. 3. EVERY SHIFT: Assess and document dressing/incision, wound bed, drain sites and surrounding tissue. 4. Implement wound care per orders. 5. Initiate isolation precautions as appropriate. 6. Initiate Pressure Ulcer order set as indicated. Outcome: Progressing Problem: Musculoskeletal - Adult Goal: Maintain proper alignment of affected body part Description: INTERVENTIONS: 1. Support and protect limb and body alignment per healthcare provider's orders. 2. Instruct and reinforce with patient and family use of appropriate assistive device and precautions (e.g. spinal or hip dislocation precautions). Outcome: Progressing Plan of Care - Kiara Kiran RN - 11/22/2021 11:01 PM CDT Problem: Pain - Adult Goal: Verbalizes/displays adequate comfort level or baseline comfort level Description: INTERVENTIONS: 1. Encourage pt to monitor pain and request assistance 2. Assess pain using appropriate pain scale 3. Administer analgesics based on type and severity of pain and evaluate response 4. Implement non-pharmacological measures as appropriate and evaluate response 5. Consider cultural and social influences on pain and pain management 6. Notify health care provider if interventions unsuccessful or patient reports new pain 7. Assess effect of pain on daily activities Outcome: Progressing Plan of Care - Juan Esposito RN - 11/22/2021 11:40 AM CDT Problem: [place] At Risk (score 15-18) Goal: Skin intergrity is maintained or improved Description: INTERVENTIONS: 1. If bed bound, reposition every 2 hours. If chair bound, reposition every hour 2. Increase mobility and activity for immobile patients 3. Elevate heels off bed surface and avoid skin to skin contact 4. Keep HOB at a 30 degree angle or lower unless otherwise indicated by MD adjunct sociology professor 5. Manage moisture, nutrition, and friction and shear 6. Use pressure reduction device if bed or chair bound Outcome: Progressing Problem: HDS Fall Risk Goal: Decrease risk to fall secondary to Mobility Issues Assessment Score >/=2 Description: INTERVENTIONS: 1.Utilize a bed/ chair fall alarm if patient is MODERATE or HIGH RISK. 2. Use fall mats on one or both sides of the bed or in front of chair when OOB if patient is MODERATE or HIGH RISK. 3. Remove fall mat from floor when patient getting out of bed or chair and replace upon return. 4. Provide assistive device to patients who use at home (walker, cane, etc.). 5. Teach correct assistive device use, importance of using device to ambulate when applicable. 6. Use gait belt when assisting patient to ambulate when not contraindicated. 7. Patients on bedrest should use a bedpan. 8. Low bed position (If using) w/ pt knee at 90 degree angle, feet flat on floor to rise or return to bed. 9. Bedpan w/ 2 assist if 2 staff unavailable; BSC if 2 staff available entire time. 10. Patients requiring assist of 1 for safe ambulation- BSC. 11. Use proper positioning assist devices (chair belts, wedges, recliners). 12. Instruct patient/family to exit bed on their strongest side. 13. Schedule physical activity with assistance throughout the day and inform patient/ family of activity schedule. 14. Minimize the use of immobilizing devices such as urinary catheters and restraints. 15. Initiate PT Consult. 16. Provide bed baths for patients on bedrest or those requiring the assistance of 2 or more for safe ambulation. 17. Use a shower chair for patients requiring the assistance of one person and do not leave alone while in the shower. 18. Ensure that ambulating patients have mobile IV pole if applicable. 19. Reduce environmental triggers causing dizziness a) Cool room, transport comfort measures, dangle before stand b) No helium balloons c) Alter environment to avoid movements causing dizziness Outcome: Progressing Goal: Decrease risk to fall secondary to Volume/Electrolyte status Assessment score >/=2 Description: INTERVENTIONS: 1. Collaborate with physician and pharmacist to assess need for orthostatic hypotension (OH) evaluation: PROCEDURE 1. Have the patient lie down for 5 minutes. 2. Measure blood pressure and pulse rate. 3. Have the patient stand. 4. Repeat blood pressure and pulse rate measurements after standing 1 and 3 minutes. EVALUATION of OH: A drop in BP of ?20 mm Hg, or in diastolic BP of ?10 mm Hg, or experiencing lightheadedness or dizziness is considered abnormal. For positive OH findings: a) Notify MD/Provider. b) Teach patient to rise slowly/ raise the HOB slowly when assisting pts OOB. c) Teach patient to dangle and pump calves before rising. d) Teach patient to lockstitch machine operator place before beginning to ambulate. e) Teach patient to sit back down if they feel weak or dizzy. f) Avoid situations that create urgency for patients with OH. g) Provide bed bath for patients with OH. h) Ensure proper hydration. 2. Patients with low blood sugars or hypotension should be toileted using a bedpan. 3. Teach patient to dangle before rising if hypotensive. 4. Ensure that the patient remains hydrated. 5. Monitor abnormal lab values. 6. Advance diet as tolerated when applicable to minimize use of intravenous and enteral feeds. 7.*Administer medications as ordered for n/v and provide interventions to prevent/minimize n/v. 8. Ensure that IV tubing length does not create risk for falls. 9. Collaborate with care team to ensure IV fluids are appropriate to patient's current condition. 10. *If diabetic, monitor blood sugars and facilitate interventions to maintain appropriate blood sugars. Outcome: Progressing Goal: High Risk (HDS score >/=15) Description: INTERVENTIONS: 1. 1. Follow universal fall precautions (UFPs). 2. Individualize HD Falls Care Plan. 3. Place FALL RISK ID band on patient. 4. Provide patient/family education based on risk assessment using the HDS. 5. Instruct patient/ family to call staff for assistance when getting out of bed or accessing out ofreach items. 6. Place RED Fall Precaution signage outside patient door. 7. Place patient in a room closer to the nursing station if available. 8. Use bed alarm/mat in bed, chair alarm if OOB in chair or in transport. 9. Connect bed alarm to call light when possible. 10. Place fall mats on one or both sides of the bed or in front of chair when OOB. 11. Do not leave patients unattended while toileting or in the bathroom. Outcome: Progressing Goal: Decrease risk to fall secondary to Medication Issues Assessment Score >/=2 Description: Decrease risk to fall secondary to medication issues. INTERVENTIONS: 1. Toilet patient before giving pain medication. 2. Avoid showering or bathing after giving pain medications. 3. Frequent/regular toileting for pt. on diuretics/laxatives. 4. Adjust adult remedial education instructor per side effects (i.e., Lasix to be given in AM). 5. Collaborate with physician and pharmacist to assess need for orthostatic hypotension (OH) evaluation: PROCEDURE 1. Have the patient lie down for 5 minutes. 2. Measure blood pressure and pulse rate. 3. Have the patient stand. 4. Repeat blood pressure and pulse rate measurements after standing 1 and 3 minutes. Evaluation of Orthostatic Hypotension (OH) - A drop in BP of greater than 20 mm Hg OR in diastolic BP of greater than 10 mm Hg OR experiencing lightheadedness or dizziness is considered abnormal. For positive OH findings: a) Notify MD/Provider b) Teach patient to rise slowly/ raise the HOB slowly when assisting pts OOB c) Teach patient to dangle and pump calves before rising d) Teach patient to lockstitch machine operator place before beginning to ambulate e) Teach patient to sit back down if they feel weak or dizzy f) Avoid situations that create urgency for patients with OH g) Provide bed bath for patients with OH. h) Ensure adequate hydration. 6. Limit prn combo med when possible (ex., sedative, analgesics, etc.). 7. Review medications daily with patien+[id number] and family and educate on side effects. 8. Interprofessional collaboration for meds to dc or lower dose Outcome: Progressing Goal: Decrease risk to fall secondary to Toileting Issues Assessment Score >/=2 Description: INTERVENTIONS: 1. Do not leave patients unattended while toileting. 2. Hypotensive patients should be toileted using a bedpan. 3. Patients with incontinence should wear a brief or a dung-pad when ambulating or traveling off theunit. 4. Patients with low blood sugars should be toileted using a bedpan. 5.Toilet prior to giving pain medications. 6. Toilet patient at regular and frequent intervals. 7. Provide frequent toileting opportunities to patients who are receiving laxatives & diuretics. 8. Instruct male patients prone to dizziness to void while sitting (use urinal when necessary). 9.Instruct patients/family on the use of grab bars and to call for assistance when toileting. 10. Obtain elevated toilet seat or bedside commode (BSC) if needed and place the BSC parallel to bedwith bed in front of BSC when in use. 11. Ensure catheter bag is placed below bladder level to promote drainage. 12. Assess need for continued urinary catheter use. 13. Ensure adequate bowel/bladder function by providing sufficient fluid and fiber as allowed by diet. Outcome: Progressing Problem: Pain - Adult Goal: Verbalizes/displays adequate comfort level or baseline comfort level Description: INTERVENTIONS: 1. Encourage pt to monitor pain and request assistance 2. Assess pain using appropriate pain scale 3. Administer analgesics based on type and severity of pain and evaluate response 4. Implement non-pharmacological measures as appropriate and evaluate response 5. Consider cultural and social influences on pain and pain management 6. Notify health care provider if interventions unsuccessful or patient reports new pain 7. Assess effect of pain on daily activities Outcome: Progressing Problem: Infection - Adult Goal: Absence of infection during hospitalization Description: INTERVENTIONS: 1. Assess and monitor for signs and symptoms of infection 2. Monitor lab/diagnostic results 3. Monitor all insertion sites i.e., indwelling lines, tubes and drains 4. Monitor endotracheal/tracheostomy (as able) and nasal secretions for changes in amount and color 5. Initiate appropriate cooling/warming therapies per order 6. Administer medications as ordered 7. Instruct and encourage patient and family to use good hand hygiene technique and personal protective equipment (PPE) as appropriate 8. Identify and instruct in appropriate isolation precautions for identified infection/condition Outcome: Progressing Problem: Communication Barrier (hearing, visual, language) Goal: Communicates in a manner that can be understood by others Description: INTERVENTIONS: 1. Utilize surgeon assistant services for communication if needed 2. Provide written communication in preferred language when possible 3. Educate patient/caregiver on surgeon assistant services when appropriate Outcome: Progressing Problem: Behavior Goal: Pt/Family maintain appropriate behavior Description: INTERVENTIONS: 1. Assess patient/family???s coping skills and non-compliant behavior (including use of illegal substances). 2. Notify security of behavior or suspected illegal substances which indicate the need for search ofthe patient and/or belongings. 3. Encourage verbalization of thoughts and concerns in a socially appropriate manner. 4. Utilize positive, consistent limit setting strategies supporting safety of patient, staff and others. 5. Encourage participation in the decision making process. 6. If a patient???s behavior jeopardizes the safety of the patient, staff, or others refer to organization policy. If a visitor???s behavior poses a threat to safety call refer to organization policy. 7. Initiate consult with Erosion Control Specialist or Pastoral/Spiritual Care as appropriate. Outcome: Progressing Problem: Musculoskeletal - Adult Goal: Maintain proper alignment of affected body part Description: INTERVENTIONS: 1. Support and protect limb and body alignment per healthcare provider's orders. 2. Instruct and reinforce with patient and family use of appropriate assistive device and precautions (e.g. spinal or hip dislocation precautions). Outcome: Progressing Plan of Care - Kiara Kiran RN - 11/22/2021 2:33 AM CDT Problem: [place] At Risk (score 15-18) Goal: Skin intergrity is maintained or improved Description: INTERVENTIONS: 1. If bed bound, reposition every 2 hours. If chair bound, reposition every hour 2. Increase mobility and activity for immobile patients 3. Elevate heels off bed surface and avoid skin to skin contact 4. Keep HOB at a 30 degree angle or lower unless otherwise indicated by MD adjunct sociology professor 5. Manage moisture, nutrition, and friction and shear 6. Use pressure reduction device if bed or chair bound Outcome: Progressing Problem: HDS Fall Risk Goal: Decrease risk to fall secondary to Mobility Issues Assessment Score >/=2 Description: INTERVENTIONS: 1.Utilize a bed/ chair fall alarm if patient is MODERATE or HIGH RISK. 2. Use fall mats on one or both sides of the bed or in front of chair when OOB if patient is MODERATE or HIGH RISK. 3. Remove fall mat from floor when patient getting out of bed or chair and replace upon return. 4. Provide assistive device to patients who use at home (walker, cane, etc.). 5. Teach correct assistive device use, importance of using device to ambulate when applicable. 6. Use gait belt when assisting patient to ambulate when not contraindicated. 7. Patients on bedrest should use a bedpan. 8. Low bed position (If using) w/ pt knee at 90 degree angle, feet flat on floor to rise or return to bed. 9. Bedpan w/ 2 assist if 2 staff unavailable; BSC if 2 staff available entire time. 10. Patients requiring assist of 1 for safe ambulation- BSC. 11. Use proper positioning assist devices (chair belts, wedges, recliners). 12. Instruct patient/family to exit bed on their strongest side. 13. Schedule physical activity with assistance throughout the day and inform patient/ family of activity schedule. 14. Minimize the use of immobilizing devices such as urinary catheters and restraints. 15. Initiate PT Consult. 16. Provide bed baths for patients on bedrest or those requiring the assistance of 2 or more for safe ambulation. 17. Use a shower chair for patients requiring the assistance of one person and do not leave alone while in the shower. 18. Ensure that ambulating patients have mobile IV pole if applicable. 19. Reduce environmental triggers causing dizziness a) Cool room, transport comfort measures, dangle before stand b) No helium balloons c) Alter environment to avoid movements causing dizziness Outcome: Progressing Goal: Low Risk (HDS score 7-10) Description: INTERVENTIONS: 1. Initiate universal fall precautions (UFPs). 2. Individualize HD Falls Care Plan. 3. Place FALL RISK ID band on patient. 4. Provide patient/family education based on risk assessment using the HDS. 5. Instruct patient/ family to call staff for assistance when getting out of bed or accessing out ofreach items. 6. Place GREEN Fall Precaution signage outside patient door. 7. Do not leave patients unattended while toileting or in the bathroom. Outcome: Progressing Goal: Decrease risk to fall secondary to Volume/Electrolyte status Assessment score >/=2 Description: INTERVENTIONS: 1. Collaborate with physician and pharmacist to assess need for orthostatic hypotension (OH) evaluation: PROCEDURE 1. Have the patient lie down for 5 minutes. 2. Measure blood pressure and pulse rate. 3. Have the patient stand. 4. Repeat blood pressure and pulse rate measurements after standing 1 and 3 minutes. EVALUATION of OH: A drop in BP of ?20 mm Hg, or in diastolic BP of ?10 mm Hg, or experiencing lightheadedness or dizziness is considered abnormal. For positive OH findings: a) Notify MD/Provider. b) Teach patient to rise slowly/ raise the HOB slowly when assisting pts OOB. c) Teach patient to dangle and pump calves before rising. d) Teach patient to lockstitch machine operator place before beginning to ambulate. e) Teach patient to sit back down if they feel weak or dizzy. f) Avoid situations that create urgency for patients with OH. g) Provide bed bath for patients with OH. h) Ensure proper hydration. 2. Patients with low blood sugars or hypotension should be toileted using a bedpan. 3. Teach patient to dangle before rising if hypotensive. 4. Ensure that the patient remains hydrated. 5. Monitor abnormal lab values. 6. Advance diet as tolerated when applicable to minimize use of intravenous and enteral feeds. 7.*Administer medications as ordered for n/v and provide interventions to prevent/minimize n/v. 8. Ensure that IV tubing length does not create risk for falls. 9. Collaborate with care team to ensure IV fluids are appropriate to patient's current condition. 10. *If diabetic, monitor blood sugars and facilitate interventions to maintain appropriate blood sugars. Outcome: Progressing Problem: Pain - Adult Goal: Verbalizes/displays adequate comfort level or baseline comfort level Description: INTERVENTIONS: 1. Encourage pt to monitor pain and request assistance 2. Assess pain using appropriate pain scale 3. Administer analgesics based on type and severity of pain and evaluate response 4. Implement non-pharmacological measures as appropriate and evaluate response 5. Consider cultural and social influences on pain and pain management 6. Notify health care provider if interventions unsuccessful or patient reports new pain 7. Assess effect of pain on daily activities Outcome: Progressing Problem: Adult Fall Risk and [place] Fall Precautions Goal: Fall risk and related injury risk are minimized Description: INTERVENTIONS: Score the patient using the 1. (HDS) upon admission, each shift, and with any change in the patient's condition and with any transfer. 2. Determine the fall risk category the patient belongs to based on the HDS score. Use this score category to begin the fall prevention and injury reduction plan for this patient. 3. Routinely assess patient's environment for factors that could cause or contribute to falls. 4. Communicate with the assigned transporter the deficits that place the patient at risk for falls to ensure continued use/facilitation of appropriate interventions for that patient and notify receiving areas of high fall risk. 5. Educate patient and family about the risk of falling, safety issues, and their mobility limitations. 6. Teach patient to make position changes slowly. 7. [place] patients to their bed areas, unit facilities, and how to get assistance. 8. Educate patient and family regarding the armband procedure. Instruct patient & family about fall prevention measures to use at home. 9. Patient education materials to be given to patient and family. Outcome: Progressing Goal: [place] Fall Precautions (all patients) Description: INTERVENTIONS: 1. Call light/ belongings in reach. 2. Bed in low position and locked. 3. Wheelchairs and chairs locked. 4. SR up X2. 5. Ensure adequate lighting. 6. Clutter free and spill free environment. 7. Educate on purpose of universal fall precautions. 8. Educate to call for assistance. 9. Keep closet and bathroom doors closed when not in use. 10. Use of footwear: a) use nonslip footwear unless patient has a shuffling gait. b) patients with shuffling gait-avoid thick soled shoes with rubber toes. c) ensure proper fit of personal footwear from home. Outcome: Progressing Problem: Decision Making Goal: Pt/Family able to effectively weigh alternatives and participate in decision making related totreatment and care Description: INTERVENTIONS: 1. Determine when there are differences between patient's view, family's view, and healthcare provider's view of condition. 2. Facilitate patient and family articulation of goals for care. 3. Help patient and family identify pros/cons of alternative solutions. 4. Provide information as requested by patient/family. 5. Respect patient/family right to receive or not to receive information. 6. Serve as a liaison between patient and family and health care team. 7. Initiate Pastoral/Spiritual Care or Palliative Care consults or initiate Family Care Conference as is appropriate. Outcome: Progressing Op Note - Blas Armendariz MD - 11/21/2021 3:33 PM CDT Procedure Note Date of Surgery: 11/20/2021 Pre-Op Diagnosis Codes: * Dislocation of hip joint prosthesis, initial encounter ([facility]) [T84.029A, Z96.649] Post-Op Diagnosis Codes: * Dislocation of hip joint prosthesis, initial encounter ([facility]) [T84.029A, Z96.649] Indication for Surgery: A 66-year-old female with a history of multiple surgeries to the right hip with the last one being aright hip revision to a proximal femoral replacement that was performed on April 15, 2020. She had done well since her surgery, was able to ambulate, perform all activities with relative ease without any issues, but recently in the last couple of days she did have an episode in her house where she felt that her hip dislocated and she was unable to ambulate anymore. She does not recall any trauma. No fractures whatsoever. She has not had any fevers or chills. On evaluation her lab markers are slightly elevated, only ever so slightly elevated, but she has a history of a recent bout with COVID as well. She has no pain to the hip and no known issues to that hip since surgery and recovering. after adiscussion of risks, benefits, and options, we opted to proceed with a revision procedure for her hip. ([id number]) Procedure(s): Revision Right proximal femoral replacement NOTE: 22 Modifier was utilized for this procedure based on patient's morbid obesity. This increased the surgical complexity of the procedure requiring additional assistance and time for positioning, exposure and implantation. Anesthesia: General Surgeon(s) and Role: * Blas Armendariz MD - Primary Surgical Staff: Cath Lab Technologist: Sherin Wood RN Heel Cementer: Ines King Septic Tank Servicer: Rush Solis MD Implant(s): Depuy 54mm +4 Constrained liner 32mm +5 femoral head ceramic Specimen(s): ID Type Source Tests Collected by Time 1 : Right Hip Wound Tissue ANAEROBIC CULTURE, DEEP WOUND/TISSUE CULTURE W/ STAIN Blas Armendariz MD 11/20/2021 7754 2 : right hip synovium Tissue Tissue ANAEROBIC CULTURE, DEEP WOUND/TISSUE CULTURE W/ STAIN, AFB CULTURE W/ STAIN Blas Armendariz MD 11/20/2021 1501 A : Right Hip Tissue Hip, Right SURGICAL PATHOLOGY SPECIMEN Blas Armendariz MD 11/20/2021 1442 Estimated Blood Loss: less than 100 mL Wound Classification: 2-Clean Contaminated IV Fluids: See Anesthesia Record Condition: stable Complications: None Procedure Details and Findings: The patient was met in the preoperative area. Consent was confirmed. The operative site was marked. After a time-out, she received her antibiotics and was positioned in the lateral decubitus with the operative extremity prepped and draped. All bony prominences were padded. Of note, the patient was morbidly obese, leading to increased complexity of the surgery, as well as set- up and dissection. The previous incision was identified and part of the our incision, the proximal two-thirds of it wasused. The incision was taken down through subcutaneous tissue and fascia until the fascia was split and the deep tissue identified. We were easily able to identify her implant. There was some fluid egress that was collected and sent for cultures. There was no all purulent-appearing material within thehip joint. Next, we slowly visualized the implant proximally, as well as her capsular tissue. We identified the acetabulum with careful dissection, and once the acetabulum was identified, we proceeded to improve our visualization by removing the overgrown soft tissue and overgrown capsular tissue. Part of synovium overgrowth was taken and sent to Pathology for analysis and part was sent for culture as well. Once the cup outline was clearly visualized and we could see her constrained liner as well, we then proceeded to remove the liner. The liner was extremely well fixed and required an ample amountof time as well as patience to remove. We used a combination of osteotomes, multiple at a time, as well as a saw for the polyethylene and it had to be removed piecemeal. Once this was completely removed, we then cleaned out the acetabular shell behind. Next, we then identified the liner size and confir med it, and replaced the liner at that time. It was then impacted into place. We then turned our attention to the femur. We pulled the femur back into the field and it was already sitting dislocated. With the use an of impactor, I removed the head. We evaluated the stem. The stem was extremely well fixed and not moving. The patient's previous constrained liner ring had fallen down the stem. We proceeded to remove that carefully. Once that was removed, we thoroughly irrigated the wound and the wound bed and then replaced the head. Of note, prior to the initial placement of the acetabular liner, the constrained liner, we did query the acetabular shell. We impacted it and it was extremely stable. Once the head was placed, we reduced the hip joint into place and we secured the constrained liner with the use of the ring. Once this was impacted into place, the hip was extremely stable. We thoroughly irrigated the wound again with Betadine solution, as well as normal saline. We then closed the deep layer, subcutaneous layer, and then the skin with nylon sutures and a Prevena wound VAC was placed overoverlying the skin. PLAN: The patient will be allowed to be weightbearing as tolerated. She will have posterior hip precautions and be careful. She will have pain control. We will recheck postoperative labs. She will receive her antibiotics and will plan to keep her on antibiotics for home. We will await cultures as well. (DOC:[id number]) Plan of Care - Juan Esposito RN - 11/21/2021 11:34 AM CDT Problem: [place] At Risk (score 15-18) Goal: Skin intergrity is maintained or improved Description: INTERVENTIONS: 1. If bed bound, reposition every 2 hours. If chair bound, reposition every hour 2. Increase mobility and activity for immobile patients 3. Elevate heels off bed surface and avoid skin to skin contact 4. Keep HOB at a 30 degree angle or lower unless otherwise indicated by adjunct sociology professor 5. Manage moisture, nutrition, and friction and shear 6. Use pressure reduction device if bed or chair bound 11/21/2021 1134 by Juan Esposito RN Outcome: Progressing 11/21/2021 1133 by Juan Esposito RN Outcome: Progressing Problem: HDS Fall Risk Goal: Decrease risk to fall secondary to Mobility Issues Assessment Score >/=2 Description: INTERVENTIONS: 1.Utilize a bed/ chair fall alarm if patient is MODERATE or HIGH RISK. 2. Use fall mats on one or both sides of the bed or in front of chair when OOB if patient is MODERATE or HIGH RISK. 3. Remove fall mat from floor when patient getting out of bed or chair and replace upon return. 4. Provide assistive device to patients who use at home (walker, cane, etc.). 5. Teach correct assistive device use, importance of using device to ambulate when applicable. 6. Use gait belt when assisting patient to ambulate when not contraindicated. 7. Patients on bedrest should use a bedpan. 8. Low bed position (If using) w/ pt knee at 90 degree angle, feet flat on floor to rise or return to bed. 9. Bedpan w/ 2 assist if 2 staff unavailable; BSC if 2 staff available entire time. 10. Patients requiring assist of 1 for safe ambulation- BS. 11. Use proper positioning assist devices (chair belts, wedges, recliners). 12. Instruct patient/family to exit bed on their strongest side. 13. Schedule physical activity with assistance throughout the day and inform patient/ family of activity schedule. 14. Minimize the use of immobilizing devices such as urinary catheters and restraints. 15. Initiate PT Consult. 16. Provide bed baths for patients on bedrest or those requiring the assistance of 2 or more for safe ambulation. 17. Use a shower chair for patients requiring the assistance of one person and do not leave alone while in the shower. 18. Ensure that ambulating patients have mobile IV pole if applicable. 19. Reduce environmental triggers causing dizziness a) Cool room, transport comfort measures, dangle before stand b) No helium balloons c) Alter environment to avoid movements causing dizziness Outcome: Progressing Goal: Low Risk (HDS score 7-10) Description: INTERVENTIONS: 1. Initiate universal fall precautions (UFPs). 2. Individualize HD Falls Care Plan. 3. Place FALL RISK ID band on patient. 4. Provide patient/family education based on risk assessment using the HDS. 5. Instruct patient/ family to call staff for assistance when getting out of bed or accessing out ofreach items. 6. Place GREEN Fall Precaution signage outside patient door. 7. Do not leave patients unattended while toileting or in the bathroom. Outcome: Progressing Goal: Decrease risk to fall secondary to Volume/Electrolyte status Assessment score >/=2 Description: INTERVENTIONS: 1. Collaborate with physician and pharmacist to assess need for orthostatic hypotension (OH) evaluation: PROCEDURE 1. Have the patient lie down for 5 minutes. 2. Measure blood pressure and pulse rate. 3. Have the patient stand. 4. Repeat blood pressure and pulse rate measurements after standing 1 and 3 minutes. EVALUATION of OH: A drop in BP of ?20 mm Hg, or in diastolic BP of ?10 mm Hg, or experiencing lightheadedness or dizziness is considered abnormal. For positive OH findings: a) Notify MD/Provider. b) Teach patient to rise slowly/ raise the HOB slowly when assisting pts OOB. c) Teach patient to dangle and pump calves before rising. d) Teach patient to lockstitch machine operator place before beginning to ambulate. e) Teach patient to sit back down if they feel weak or dizzy. f) Avoid situations that create urgency for patients with OH. g) Provide bed bath for patients with OH. h) Ensure proper hydration. 2. Patients with low blood sugars or hypotension should be toileted using a bedpan. 3. Teach patient to dangle before rising if hypotensive. 4. Ensure that the patient remains hydrated. 5. Monitor abnormal lab values. 6. Advance diet as tolerated when applicable to minimize use of intravenous and enteral feeds. 7.*Administer medications as ordered for n/v and provide interventions to prevent/minimize n/v. 8. Ensure that IV tubing length does not create risk for falls. 9. Collaborate with care team to ensure IV fluids are appropriate to patient's current condition. 10. *If diabetic, monitor blood sugars and facilitate interventions to maintain appropriate blood sugars. Outcome: Progressing Problem: Pain - Adult Goal: Verbalizes/displays adequate comfort level or baseline comfort level Description: INTERVENTIONS: 1. Encourage pt to monitor pain and request assistance 2. Assess pain using appropriate pain scale 3. Administer analgesics based on type and severity of pain and evaluate response 4. Implement non-pharmacological measures as appropriate and evaluate response 5. Consider cultural and social influences on pain and pain management 6. Notify health care provider if interventions unsuccessful or patient reports new pain 7. Assess effect of pain on daily activities Outcome: Progressing Problem: Adult Fall Risk and [place] Fall Precautions Goal: Fall risk and related injury risk are minimized Description: INTERVENTIONS: Score the patient using the 1. (HDS) upon admission, each shift, and with any change in the patient's condition and with any transfer. 2. Determine the fall risk category the patient belongs to based on the HDS score. Use this score category to begin the fall prevention and injury reduction plan for this patient. 3. Routinely assess patient's environment for factors that could cause or contribute to falls. 4. Communicate with the assigned transporter the deficits that place the patient at risk for falls to ensure continued use/facilitation of appropriate interventions for that patient and notify receiving areas of high fall risk. 5. Educate patient and family about the risk of falling, safety issues, and their mobility limitations. 6. Teach patient to make position changes slowly. 7. [place] patients to their bed areas, unit facilities, and how to get assistance. 8. Educate patient and family regarding the armband procedure. Instruct patient & family about fall prevention measures to use at home. 9. Patient education materials to be given to patient and family. Outcome: Progressing Goal: [place] Fall Precautions (all patients) Description: INTERVENTIONS: 1. Call light/ belongings in reach. 2. Bed in low position and locked. 3. Wheelchairs and chairs locked. 4. SR up X2. 5. Ensure adequate lighting. 6. Clutter free and spill free environment. 7. Educate on purpose of universal fall precautions. 8. Educate to call for assistance. 9. Keep closet and bathroom doors closed when not in use. 10. Use of footwear: a) use nonslip footwear unless patient has a shuffling gait. b) patients with shuffling gait-avoid thick soled shoes with rubber toes. c) ensure proper fit of personal footwear from home. Outcome: Progressing Problem: Communication Barrier (hearing, visual, language) Goal: Communicates in a manner that can be understood by others Description: INTERVENTIONS: 1. Utilize surgeon assistant services for communication if needed 2. Provide written communication in preferred language when possible 3. Educate patient/caregiver on surgeon assistant services when appropriate Outcome: Progressing Problem: Decision Making Goal: Pt/Family able to effectively weigh alternatives and participate in decision making related totreatment and care Description: INTERVENTIONS: 1. Determine when there are differences between patient's view, family's view, and healthcare provider's view of condition. 2. Facilitate patient and family articulation of goals for care. 3. Help patient and family identify pros/cons of alternative solutions. 4. Provide information as requested by patient/family. 5. Respect patient/family right to receive or not to receive information. 6. Serve as a liaison between patient and family and health care team. 7. Initiate Pastoral/Spiritual Care or Palliative Care consults or initiate Family Care Conference as is appropriate. Outcome: Progressing Problem: Behavior Goal: Pt/Family maintain appropriate behavior Description: INTERVENTIONS: 1. Assess patient/family???s coping skills and non-compliant behavior (including use of illegal substances). 2. Notify security of behavior or suspected illegal substances which indicate the need for search ofthe patient and/or belongings. 3. Encourage verbalization of thoughts and concerns in a socially appropriate manner. 4. Utilize positive, consistent limit setting strategies supporting safety of patient, staff and others. 5. Encourage participation in the decision making process. 6. If a patient???s behavior jeopardizes the safety of the patient, staff, or others refer to organization policy. If a visitor???s behavior poses a threat to safety call refer to organization policy. 7. Initiate consult with Erosion Control Specialist or Pastoral/Spiritual Care as appropriate. Outcome: Progressing Problem: Metabolic/Fluid and Electrolytes - Adult Goal: Electrolytes maintained within normal limits Description: INTERVENTIONS: 1. Monitor labs and assess patient for signs and symptoms of electrolyte imbalances. 2. Administer electrolyte replacement as ordered. 3. Monitor response to electrolyte replacements, including repeat lab results as appropriate. 4. Fluid restriction as ordered. 5. Instruct patient on fluid and nutrition restrictions as appropriate. Outcome: Progressing Problem: Musculoskeletal - Adult Goal: Maintain proper alignment of affected body part Description: INTERVENTIONS: 1. Support and protect limb and body alignment per healthcare provider's orders. 2. Instruct and reinforce with patient and family use of appropriate assistive device and precautions (e.g. spinal or hip dislocation precautions). Outcome: Progressing Plan of Care - Magnolia Morrison DPT - 11/21/2021 9:51 AM CDT Problem: Physical Therapy - Adult Goal: By Discharge: Performs mobility at highest level of function for planned discharge setting. See evaluation for individualized goals. Outcome: Progressing Flowsheets (Taken 11/21/2021 0951) Discharge Recommendations: Acute Rehab Equipment Recommendations: To be determined at next level of care Assessment Comments: Patient required max A X 2 for bed mobility and transfers but provided good effort in spite of pain. Will continue to follow to progress mobility and gait as tolerated. Recommend acute rehab to maximize independence with all mobility prior to return home to live independently. Duration of Therapy: Continue skilled therapy to address identified problems, as per Plan of Care. Ongoing therapy 2-4x/week Plan of Care - Mihaela Su OTR/Armando - 11/21/2021 9:50 AM CDT Problem: Occupational Therapy - Adult Goal: By Discharge: Performs self-care activities at highest level of function for planned dischargesetting. See evaluation for individualized goals. Flowsheets (Taken 11/21/2021 0254) OT Discharge Recommendations: Acute Rehab OT Equipment Recommendations: Will continue to follow and assess for needs Assessment Comments: Pt tolerated OT eval well. Pt performed all bed mobility and functional transfers with max A. Pt maintains balance while sitting EOB. Pt demonstrates decreased strength in BUE. OT will continue to follow and assess. OT to rec acute rehab prior to home. Duration of Therapy: Continue skilled therapy to address identified problems, as per Plan of Care. Ongoing therapy 1-5x/week Plan of Care - Kiara Kiran RN - 11/21/2021 2:40 AM CDT Problem: [place] At Risk (score 15-18) Goal: Skin intergrity is maintained or improved Description: INTERVENTIONS: 1. If bed bound, reposition every 2 hours. If chair bound, reposition every hour 2. Increase mobility and activity for immobile patients 3. Elevate heels off bed surface and avoid skin to skin contact 4. Keep HOB at a 30 degree angle or lower unless otherwise indicated by MD adjunct sociology professor 5. Manage moisture, nutrition, and friction and shear 6. Use pressure reduction device if bed or chair bound Outcome: Progressing Problem: HDS Fall Risk Goal: Moderate Risk (HDS score 11-14) Description: INTERVENTIONS: 1. Follow universal fall precautions (UFPs). 2. Individualize HD Falls Care Plan. 3. Place FALL RISK ID band on patient. 4. Provide patient/family education based on risk assessment using the HDS. 5. Instruct patient/ family to call staff for assistance when getting out of bed or accessing out ofreach items. 6. Place YELLOW Fall Precaution signage outside patient door. 7. Place patient in a room closer to the nursing station if available. 8. Pt score 2 or more on Mental Status/LOC/Awareness section: a) Use bed alarm (chair alarm if OOB/ in chair/in transport) b) Connect alarm to call light if possible; built in bed alarm-use large zone c) Place fall mats on one or both sides of bed/in front of chair when OOB 9. Do not leave pt. unattended in bathroom or while toileting. Outcome: Progressing Goal: Decrease risk to fall secondary to Mobility Issues Assessment Score >/=2 Description: INTERVENTIONS: 1.Utilize a bed/ chair fall alarm if patient is MODERATE or HIGH RISK. 2. Use fall mats on one or both sides of the bed or in front of chair when OOB if patient is MODERATE or HIGH RISK. 3. Remove fall mat from floor when patient getting out of bed or chair and replace upon return. 4. Provide assistive device to patients who use at home (walker, cane, etc.). 5. Teach correct assistive device use, importance of using device to ambulate when applicable. 6. Use gait belt when assisting patient to ambulate when not contraindicated. 7. Patients on bedrest should use a bedpan. 8. Low bed position (If using) w/ pt knee at 90 degree angle, feet flat on floor to rise or return to bed. 9. Bedpan w/ 2 assist if 2 staff unavailable; BSC if 2 staff available entire time. 10. Patients requiring assist of 1 for safe ambulation- BSC. 11. Use proper positioning assist devices (chair belts, wedges, recliners). 12. Instruct patient/family to exit bed on their strongest side. 13. Schedule physical activity with assistance throughout the day and inform patient/ family of activity schedule. 14. Minimize the use of immobilizing devices such as urinary catheters and restraints. 15. Initiate PT Consult. 16. Provide bed baths for patients on bedrest or those requiring the assistance of 2 or more for safe ambulation. 17. Use a shower chair for patients requiring the assistance of one person and do not leave alone while in the shower. 18. Ensure that ambulating patients have mobile IV pole if applicable. 19. Reduce environmental triggers causing dizziness a) Cool room, transport comfort measures, dangle before stand b) No helium balloons c) Alter environment to avoid movements causing dizziness Outcome: Progressing Goal: Decrease risk to fall secondary to Toileting Issues Assessment Score >/=2 Description: INTERVENTIONS: 1. Do not leave patients unattended while toileting. 2. Hypotensive patients should be toileted using a bedpan. 3. Patients with incontinence should wear a brief or a dung-pad when ambulating or traveling off theunit. 4. Patients with low blood sugars should be toileted using a bedpan. 5.Toilet prior to giving pain medications. 6. Toilet patient at regular and frequent intervals. 7. Provide frequent toileting opportunities to patients who are receiving laxatives & diuretics. 8. Instruct male patients prone to dizziness to void while sitting (use urinal when necessary). 9.Instruct patients/family on the use of grab bars and to call for assistance when toileting. 10. Obtain elevated toilet seat or bedside commode (BSC) if needed and place the BSC parallel to bedwith bed in front of BSC when in use. 11. Ensure catheter bag is placed below bladder level to promote drainage. 12. Assess need for continued urinary catheter use. 13. Ensure adequate bowel/bladder function by providing sufficient fluid and fiber as allowed by diet. Outcome: Progressing Brief Op Note - Rush Solis MD - 11/20/2021 5:03 PM CDT Orthopaedic Surgery - Brief Operative Report Date of Surgery: 11/20/2021 Surgeon: Blas Armendariz MD Cath Lab Technologist: Sherin Wood RN Heel Cementer: Ines King Septic Tank Servicer: Rush Solis MD Preoperative Diagnosis: 1. Right prosthetic hip dislocation Postoperative Diagnosis: Same Procedures: 1. Procedure(s) (LRB): REVISE TOTAL HIP (Right) Implants: See detailed operative report Estimated Blood Loss: 200 mL Condition: Stable Skin Prep Used: Chloroprep Postoperative Plan: 1. Perioperative antibiotics for 24 hours 2. Therapy to include: OT and PT A. Weight-bearing status: 1. Right Upper Extremity - WBAT 2. Left Upper Extremity - WBAT 3. Right Lower Extremity - WBAT 4. Left Lower Extremity - WBAT B. Range of motion profile: Full active and passive C. Special Restrictions: None 3. Cultures: Yes 4. Pathology: Yes 5. Drain(s): None 6. VAC: Incisional VAC 7. Imaging: Yes, intraop and postop XR Postoperative Plan: ?? Perioperative antibiotics for 24 hours - Ancef ?? Follow up intra-op cultures ?? DVT prophylaxis - ASA 81mg BID to start POD1 recommended, SCD's while in bed for mechanical prophylaxis ?? Keep dressings intact, OK to reinforce as needed ?? Monitor wound VAC output ?? F/u labs ?? Advance diet as tolerated ?? Elevation, N/V checks ?? Multimodal pain control ?? PT/OT evaluate and treat ?? Weight-bearing status: WBAT to right lower extremity Dispo: 1. Mobilize with PT/OT. Pain control. Posterior hip precautions, No knee flexion past 90, no right leg internal rotation, No adduction R leg past midline. 2. Cultures and pathology taken, low concern for infection or pathologic process but will follow up.24h ancef. 3. Wound check in 5-7d. If dc'ing, will switch to home wound vac (prevena plus). Plan of Care - Radha Rizzo RN - 11/20/2021 1:03 PM CDT Problem: [place] At Risk (score 15-18) Goal: Skin intergrity is maintained or improved Description: INTERVENTIONS: 1. If bed bound, reposition every 2 hours. If chair bound, reposition every hour 2. Increase mobility and activity for immobile patients 3. Elevate heels off bed surface and avoid skin to skin contact 4. Keep HOB at a 30 degree angle or lower unless otherwise indicated by adjunct sociology professor 5. Manage moisture, nutrition, and friction and shear 6. Use pressure reduction device if bed or chair bound 11/20/2021 1303 by Radha Rizzo RN Outcome: Progressing 11/20/2021 1303 by Radha Rizzo RN Outcome: Progressing Problem: HDS Fall Risk Goal: Moderate Risk (HDS score 11-14) Description: INTERVENTIONS: 1. Follow universal fall precautions (UFPs). 2. Individualize HD Falls Care Plan. 3. Place FALL RISK ID band on patient. 4. Provide patient/family education based on risk assessment using the HDS. 5. Instruct patient/ family to call staff for assistance when getting out of bed or accessing out ofreach items. 6. Place YELLOW Fall Precaution signage outside patient door. 7. Place patient in a room closer to the nursing station if available. 8. Pt score 2 or more on Mental Status/LOC/Awareness section: a) Use bed alarm (chair alarm if OOB/ in chair/in transport) b) Connect alarm to call light if possible; built in bed alarm-use large zone c) Place fall mats on one or both sides of bed/in front of chair when OOB 9. Do not leave pt. unattended in bathroom or while toileting. 11/20/2021 1303 by Radha Rizzo RN Outcome: Progressing 11/20/2021 1303 by Radha Rizzo RN Outcome: Progressing Goal: Decrease risk to fall secondary to Mobility Issues Assessment Score >/=2 Description: INTERVENTIONS: 1.Utilize a bed/ chair fall alarm if patient is MODERATE or HIGH RISK. 2. Use fall mats on one or both sides of the bed or in front of chair when OOB if patient is MODERATE or HIGH RISK. 3. Remove fall mat from floor when patient getting out of bed or chair and replace upon return. 4. Provide assistive device to patients who use at home (walker, cane, etc.). 5. Teach correct assistive device use, importance of using device to ambulate when applicable. 6. Use gait belt when assisting patient to ambulate when not contraindicated. 7. Patients on bedrest should use a bedpan. 8. Low bed position (If using) w/ pt knee at 90 degree angle, feet flat on floor to rise or return to bed. 9. Bedpan w/ 2 assist if 2 staff unavailable; BSC if 2 staff available entire time. 10. Patients requiring assist of 1 for safe ambulation- BSC. 11. Use proper positioning assist devices (chair belts, wedges, recliners). 12. Instruct patient/family to exit bed on their strongest side. 13. Schedule physical activity with assistance throughout the day and inform patient/ family of activity schedule. 14. Minimize the use of immobilizing devices such as urinary catheters and restraints. 15. Initiate PT Consult. 16. Provide bed baths for patients on bedrest or those requiring the assistance of 2 or more for safe ambulation. 17. Use a shower chair for patients requiring the assistance of one person and do not leave alone while in the shower. 18. Ensure that ambulating patients have mobile IV pole if applicable. 19. Reduce environmental triggers causing dizziness a) Cool room, transport comfort measures, dangle before stand b) No helium balloons c) Alter environment to avoid movements causing dizziness Outcome: Progressing Goal: Decrease risk to fall secondary to Toileting Issues Assessment Score >/=2 Description: INTERVENTIONS: 1. Do not leave patients unattended while toileting. 2. Hypotensive patients should be toileted using a bedpan. 3. Patients with incontinence should wear a brief or a dung-pad when ambulating or traveling off theit. 4. Patients with low blood sugars should be toileted using a bedpan. 5.Toilet prior to giving pain medications. 6. Toilet patient at regular and frequent intervals. 7. Provide frequent toileting opportunities to patients who are receiving laxatives & diuretics. 8. Instruct male patients prone to dizziness to void while sitting (use urinal when necessary). 9.Instruct patients/family on the use of grab bars and to call for assistance when toileting. 10. Obtain elevated toilet seat or bedside commode (BSC) if needed and place the BSC parallel to bedwith bed in front of BSC when in use. 11. Ensure catheter bag is placed below bladder level to promote drainage. 12. Assess need for continued urinary catheter use. 13. Ensure adequate bowel/bladder function by providing sufficient fluid and fiber as allowed by diet. Outcome: Progressing Problem: HDS Fall Risk Goal: Decrease risk to fall secondary to Medication Issues Assessment Score >/=2 Description: Decrease risk to fall secondary to medication issues. INTERVENTIONS: 1. Toilet patient before giving pain medication. 2. Avoid showering or bathing after giving pain medications. 3. Frequent/regular toileting for pt. on diuretics/laxatives. 4. Adjust adult remedial education instructor per side effects (i.e., Lasix to be given in AM). 5. Collaborate with physician and pharmacist to assess need for orthostatic hypotension (OH) evaluation: PROCEDURE 1. Have the patient lie down for 5 minutes. 2. Measure blood pressure and pulse rate. 3. Have the patient stand. 4. Repeat blood pressure and pulse rate measurements after standing 1 and 3 minutes. Evaluation of Orthostatic Hypotension (OH) - A drop in BP of greater than 20 mm Hg OR in diastolic BP of greater than 10 mm Hg OR experiencing lightheadedness or dizziness is considered abnormal. For positive OH findings: a) Notify MD/Provider b) Teach patient to rise slowly/ raise the HOB slowly when assisting pts OOB c) Teach patient to dangle and pump calves before rising d) Teach patient to lockstitch machine operator place before beginning to ambulate e) Teach patient to sit back down if they feel weak or dizzy f) Avoid situations that create urgency for patients with OH g) Provide bed bath for patients with OH. h) Ensure adequate hydration. 6. Limit prn combo med when possible (ex., sedative, analgesics, etc.). 7. Review medications daily with patien+[id number]:[id number] and family and educate on side effects. 8. Interprofessional collaboration for meds to dc or lower dose Outcome: Completed Goal: Decrease risk to fall secondary to Volume/Electrolyte status Assessment score >/=2 Description: INTERVENTIONS: 1. Collaborate with physician and pharmacist to assess need for orthostatic hypotension (OH) evaluation: PROCEDURE 1. Have the patient lie down for 5 minutes. 2. Measure blood pressure and pulse rate. 3. Have the patient stand. 4. Repeat blood pressure and pulse rate measurements after standing 1 and 3 minutes. EVALUATION of OH: A drop in BP of ?20 mm Hg, or in diastolic BP of ?10 mm Hg, or experiencing lightheadedness or dizziness is considered abnormal. For positive OH findings: a) Notify MD/Provider. b) Teach patient to rise slowly/ raise the HOB slowly when assisting pts OOB. c) Teach patient to dangle and pump calves before rising. d) Teach patient to lockstitch machine operator place before beginning to ambulate. e) Teach patient to sit back down if they feel weak or dizzy. f) Avoid situations that create urgency for patients with OH. g) Provide bed bath for patients with OH. h) Ensure proper hydration. 2. Patients with low blood sugars or hypotension should be toileted using a bedpan. 3. Teach patient to dangle before rising if hypotensive. 4. Ensure that the patient remains hydrated. 5. Monitor abnormal lab values. 6. Advance diet as tolerated when applicable to minimize use of intravenous and enteral feeds. 7.*Administer medications as ordered for n/v and provide interventions to prevent/minimize n/v. 8. Ensure that IV tubing length does not create risk for falls. 9. Collaborate with care team to ensure IV fluids are appropriate to patient's current condition. 10. *If diabetic, monitor blood sugars and facilitate interventions to maintain appropriate blood sugars. Outcome: Completed Plan of Care - Nathaly Walker RN - 11/19/2021 9:00 PM CDT Problem: Harmeet At Risk (score 15-18) Goal: Skin intergrity is maintained or improved Description: INTERVENTIONS: 1. If bed bound, reposition every 2 hours. If chair bound, reposition every hour 2. Increase mobility and activity for immobile patients 3. Elevate heels off bed surface and avoid skin to skin contact 4. Keep HOB at a 30 degree angle or lower unless otherwise indicated by MD adjunct sociology professor 5. Manage moisture, nutrition, and friction and shear 6. Use pressure reduction device if bed or chair bound Outcome: Progressing Plan of Care - Radha Rizzo RN - 11/19/2021 6:54 PM CDT Problem: Harmeet At Risk (score 15-18) Goal: Skin intergrity is maintained or improved Description: INTERVENTIONS: 1. If bed bound, reposition every 2 hours. If chair bound, reposition every hour 2. Increase mobility and activity for immobile patients 3. Elevate heels off bed surface and avoid skin to skin contact 4. Keep HOB at a 30 degree angle or lower unless otherwise indicated by MD adjunct sociology professor 5. Manage moisture, nutrition, and friction and shear 6. Use pressure reduction device if bed or chair bound Outcome: Progressing Problem: HDS Fall Risk Goal: Moderate Risk (HDS score 11-14) Description: INTERVENTIONS: 1. Follow universal fall precautions (UFPs). 2. Individualize HD Falls Care Plan. 3. Place FALL RISK ID band on patient. 4. Provide patient/family education based on risk assessment using the HDS. 5. Instruct patient/ family to call staff for assistance when getting out of bed or accessing out ofreach items. 6. Place YELLOW Fall Precaution signage outside patient door. 7. Place patient in a room closer to the nursing station if available. 8. Pt score 2 or more on Mental Status/LOC/Awareness section: a) Use bed alarm (chair alarm if OOB/ in chair/in transport) b) Connect alarm to call light if possible; built in bed alarm-use large zone c) Place fall mats on one or both sides of bed/in front of chair when OOB 9. Do not leave pt. unattended in bathroom or while toileting. Outcome: Progressing Goal: Decrease risk to fall secondary to Medication Issues Assessment Score >/=2 Description: Decrease risk to fall secondary to medication issues. INTERVENTIONS: 1. Toilet patient before giving pain medication. 2. Avoid showering or bathing after giving pain medications. 3. Frequent/regular toileting for pt. on diuretics/laxatives. 4. Adjust adult remedial education instructor per side effects (i.e., Lasix to be given in AM). 5. Collaborate with physician and pharmacist to assess need for orthostatic hypotension (OH) evaluation: PROCEDURE 1. Have the patient lie down for 5 minutes. 2. Measure blood pressure and pulse rate. 3. Have the patient stand. 4. Repeat blood pressure and pulse rate measurements after standing 1 and 3 minutes. Evaluation of Orthostatic Hypotension (OH) - A drop in BP of greater than 20 mm Hg OR in diastolic BP of greater than 10 mm Hg OR experiencing lightheadedness or dizziness is considered abnormal. For positive OH findings: a) Notify MD/Provider b) Teach patient to rise slowly/ raise the HOB slowly when assisting pts OOB c) Teach patient to dangle and pump calves before rising d) Teach patient to lockstitch machine operator place before beginning to ambulate e) Teach patient to sit back down if they feel weak or dizzy f) Avoid situations that create urgency for patients with OH g) Provide bed bath for patients with OH. h) Ensure adequate hydration. 6. Limit prn combo med when possible (ex., sedative, analgesics, etc.). 7. Review medications daily with patien+B71:B78t and family and educate on side effects. 8. Interprofessional collaboration for meds to dc or lower dose Outcome: Progressing Goal: Decrease risk to fall secondary to Volume/Electrolyte status Assessment score >/=2 Description: INTERVENTIONS: 1. Collaborate with physician and pharmacist to assess need for orthostatic hypotension (OH) evaluation: PROCEDURE 1. Have the patient lie down for 5 minutes. 2. Measure blood pressure and pulse rate. 3. Have the patient stand. 4. Repeat blood pressure and pulse rate measurements after standing 1 and 3 minutes. EVALUATION of OH: A drop in BP of ?20 mm Hg, or in diastolic BP of ?10 mm Hg, or experiencing lightheadedness or dizziness is considered abnormal. For positive OH findings: a) Notify MD/Provider. b) Teach patient to rise slowly/ raise the HOB slowly when assisting pts OOB. c) Teach patient to dangle and pump calves before rising. d) Teach patient to lockstitch machine operator place before beginning to ambulate. e) Teach patient to sit back down if they feel weak or dizzy. f) Avoid situations that create urgency for patients with OH. g) Provide bed bath for patients with OH. h) Ensure proper hydration. 2. Patients with low blood sugars or hypotension should be toileted using a bedpan. 3. Teach patient to dangle before rising if hypotensive. 4. Ensure that the patient remains hydrated. 5. Monitor abnormal lab values. 6. Advance diet as tolerated when applicable to minimize use of intravenous and enteral feeds. 7.*Administer medications as ordered for n/v and provide interventions to prevent/minimize n/v. 8. Ensure that IV tubing length does not create risk for falls. 9. Collaborate with care team to ensure IV fluids are appropriate to patient's current condition. 10. *If diabetic, monitor blood sugars and facilitate interventions to maintain appropriate blood sugars. Outcome: Progressing Problem: Harmeet Moderate Risk(Score 12-14) Goal: Skin integrity is maintained or improved Description: INTERVENTIONS: 1. If bed bound, reposition every 2 hours. If chair bound, reposition every hour 2. Increase mobility and activity for immobile patients 3. Elevate heels off bed surface and avoid skin to skin contact 4. Keep HOB at a 30 degree angle or lower unless otherwise indicated by MD adjunct sociology professor 5. Keep individual off trochanter (hip) or wound with positioning of 30 degrees or below 6. Manage moisture, nutrition, and friction and shear 7. Use pressure reduction device if bed or chair bound 8. DO NOT massage bony prominences Outcome: Completed Problem: Harmeet High Risk (Less than or equal to 11) Goal: Skin integrity is maintained or improved Description: INTERVENTIONS: 1. If bed bound, reposition every 2 hours. If chair bound, reposition every hour 2. Increase mobility and activity for immobile patients 3. Elevate heels off bed surface and avoid skin to skin contact 4. Use pillows, foam wedges to keep individual in place. Do not use donut shaped pads 5. Keep HOB at a 30 degree angle or lower unless otherwise indicated by MD adjunct sociology professor 6. Keep individual off trochanter (hip) or wound with positioning of 30 degrees or below 7. Manage moisture, nutrition, and friction and shear 7. Use pressure reduction device if bed or chair bound 8. DO NOT massage bony prominences Outcome: Completed Problem: Harmeet Severe Risk (Less than 9) Goal: Skin integrity is maintained or improved Description: INTERVENTIONS: 1. If bed bound, reposition every 2 hours. If chair bound, reposition every hour 2. Increase mobility and activity for immobile patients 3. Elevate heels off bed surface and avoid skin to skin contact 4. Use pillows, foam wedges to keep individual in place. Do not use donut shaped pads 5. Keep HOB at a 30 degree angle or lower unless otherwise indicated by MD adjunct sociology professor 6. Keep individual off trochanter (hip) or wound with positioning of 30 degrees or below 7. Manage moisture, nutrition, and friction and shear 8. Use pressure reduction device if bed or chair bound 9. DO NOT massage bony prominences Outcome: Completed Plan of Care - Curtis Darnell MD - 11/19/2021 5:07 PM CDT OK for a diet today from Ortho standpoint. Will be unable to take to OR today due no OR availability. Plan for OR tomorrow. Please make npo after midnight documented in this encounter Plan of Treatment Upcoming Encounters Date Type Specialty Care Team Description 03/11/2022 Office Visit Orthopaedics Kasey Hassan MD [address] [place] (Wo rk) Scheduled Referrals Name Type Priority Associated Diagnoses Order S chedule REFERRAL/DISCHARG Outpatient Referral Routine Dislocation of h ip Ordered: E FOLLOW UP joint prosthesis, 11/25/2021 initial encounter (HCC) documented as of this encounter Procedures Procedure Name Priority Date/Time Associated Comments Diagnosis POCT GLUCOSE Routine 11/27/2021 12:08 Results for this (FINGERSTICK) PM CDT procedure are in the results section. TELEMETRY WAVEFORM Routine 11/27/2021 7:05 AM CDT POCT GLUCOSE Routine 11/27/2021 7:05 Results for this (FINGERSTICK) AM CDT procedure are in the results section. CBC Routine 11/27/2021 5:32 [...] procedure are in the results section. CBC Routine 11/26/2021 5:21 [...] procedure are in the results section. CBC Routine 11/25/2021 10:01 [...] procedure are i n the results section. MORPHOLOGY REVIEW Routine 11/24/2021 [...] TELEMETRY WAVEFORM Routine 11/23/2021 8:08 AM CDT CBC WITH AUTO Routine 11/23/2021 6:50 Results for this DIFFERENTIAL AM CDT procedure are i n the results section. MORPHOLOGY REVIEW Routine 11/23/2021 6:50 Results for [...] procedure are i n the results section. PROTIME-INR Routine 11/18/2021 11:38 Results for this PM CDT procedure are i n the results section. HC CORTNEY TEST Routine 11/18/2021 11:38 Results f or this INDIRECT QUAL PM CDT procedure are in the results section. XR KNEE RIGHT 3 [...] results section. documented in this encounter Results (ABNORMAL) POCT GLUCOSE(FINGERSTICK)-Interfaced (11/27/2021 12:08 PM CDT)Only the most recent of37 resultswithin the time period is included. Patholo gist Method Time Signature POCT 142 (H) 74 - 106 11/27/2021 [facility] FINGERSTICK mg/dL 12:15 PM CDT DEPARTMENT OF GLUCOSE PATHOLOGY POCT PERFORMED Negative Retoucher Id: 11/27/2021 [facility] [id number] - 12:15 PM CDT DEPARTMENT OF [place], PATHOLOGY [place] Specimen Anatomical Collection Method Collection Time Receive d Time (Source) Location / / Volume Laterality Blood 11/27/2021 12:08 11/27/2021 PM CDT 12:15 PM CDT Deisy Bazan MD POCT ORDERABLES - INTERFACED Performing Organization Address City/State/ZIP Code Phon e Number [facility] DEPARTMENT OF PATHOLOGY [address] [place] [address] [place] Telemetry Waveform (11/27/2021 7:05 AM CDT) Specimen (Source) Anatomical Collection Method Collection Time Re ceived Time Location / / Volume Laterality 11/27/2021 7:05 AM CDT Waveforms Interface CV CARDIOECG ORDERABLES Performing Organization Address City/State/ZIP Code Phon e Number [place] (ABNORMAL) Basic metabolic panel (11/27/2021 5:32 AM CDT)Only the most recent of 6 resultswithin the time period is included. Analysis Performed At Patho logist Time Signature Sodium 137 136 - 145 11/27/2021 [facility] mmol/L 6:23 AM CDT DEPARTMENT OF PATHOLOGY Potassium 4.4 3.4 - 4.5 11/27/2021 [facility] mmol/L 6:23 AM CDT DEPARTMENT OF PATHOLOGY Chloride 101 98 - 107 11/27/2021 [facility] mmol/L 6:23 AM CDT DEPARTMENT OF PATHOLOGY CO2 29 22 - 29 11/27/2021 [facility] mmol/L 6:23 AM CDT DEPARTMENT OF PATHOLOGY Anion Gap 7.0 6.0 - 14.0 11/27/2021 [facility] mmol/L 6:23 AM CDT DEPARTMENT OF PATHOLOGY BUN 10.4 8.0 - 23.0 11/27/2021 [facility] mg/dL 6:23 AM CDT DEPARTMENT OF PATHOLOGY Calcium 8.3 (L) 8.6 - 10.2 11/27/2021 [facility] mg/dL 6:23 AM CDT DEPARTMENT OF PATHOLOGY Glucose 106 74 - 106 11/27/2021 [facility] mg/dL 6:23 AM T DEPARTMENT OF PATHOLOGY Creatinine 0.82 0.51 - 11/27/2021 [facility] Serum/WB 0.95 mg/dL 6:23 AM T DEPARTMENT OF PATHOLOGY Comment: Elevated levels of N-acetylcyst eine and Q-ketpli-q-benzoquinone imine can cause falsely decreased values. eGFR (from >=60 ml/min/1.73m?? 11/27/2021 6:23 AM [facility] DEPARTMENT OF Creatinine) CDT PATHOLOGY Specimen Anatomical Collection Method / Collection Time Recei jackelyn Time (Source) Location / Volume Laterality Blood Lab Venipuncture / 11/27/2021 5:32 2021 5:55 Unknown AM CDT AM CDT Narrative [facility] DEPARTMENT OF PATHOLOGY - 6:23 AM CDT AVERAGE GFR FOR 60-69 YEARS OLD: 85 ml/min/1.73 m?? CHRONIC KIDNEY DISEASE: <60 ml/min/1.73 m?? KIDNEY FAILURE: <15 ml/min/1.73 m?? The use of nonindexed eGFR values (mL/mi n) should be considered for drug dosing decisions. Calculated using the CKD-EPI 2020 formul a for IDMS-traceable methods. Deisy Bazan MD LAB BLOOD ORDERABLES Performing Organization Address City/State/ZIP Code Phon e Number [facility] DEPARTMENT OF PATHOLOGY [address] [place] [address] [phone] [place] [address] (ABNORMAL) CBC (11/27/2021 5:32 AM CDT)Only the most recent of5 resultswithin the time period is included. [facility] gist Method Time Signature White Blood Cell 7.0 4.0 - 11/27/2021 [facility] Count 10.0 6:11 AM CDT DEPARTMENT OF /cm PATHOLOGY Red Blood Cell 3.14 (L) 3.80 - 11/27/2021 [facility] Count 4.80 6:11 AM CDT DEPARTMENT OF /[facility] PATHOLOGY Hemoglobin 8.7 (L) 12.0 - 11/27/2021 [facility] 15.0 g/dL 6:11 AM T DEPARTMENT OF PATHOLOGY Hematocrit 28.8 (L) 36.0 - 11/27/2021 [facility] 46.0 % 6:11 AM CDT DEPARTMENT OF PATHOLOGY Mean Corpuscular 91.7 83.0 - 11/27/2021 [facility] Volume 101.0 fl 6:11 AM CDT DEPARTMENT OF PATHOLOGY MCH 27.7 27.0 - 11/27/2021 [facility] 32.0 pg 6:11 AM CDT DEPARTMENT OF PATHOLOGY Mean Corpuscular 30.2 (L) 31.5 - 11/27/2021 [facility] Hemoglobin Conc 34.5 g/dL 6:11 AM CDT DEPARTMENT O F PATHOLOGY Red Cell 14.7 12.0 - 11/27/2021 [facility] Distribution 15.0 6:11 AM CDT DEPARTMENT OF Width PATHOLOGY RDW - SD 49.5 (H) 36.4 - 11/27/2021 [facility] 46.3 fL 6:11 AM CDT DEPARTMENT OF PATHOLOGY Platelet Count 302 150 - 400 11/27/2021 [facility] TH/cmm 6:11 AM CDT DEPARTMENT OF PATHOLOGY Mean Platelet 9.7 9.4 - 11/27/2021 [facility] Volume 12.3 fl 6:11 AM CDT DEPARTMENT OF PATHOLOGY Specimen Anatomical Collection Method / Collection Time Recei jackelyn Time (Source) Location / Volume Laterality Blood Lab Venipuncture / 11/27/2021 5:32 2021 5:54 Unknown AM CDT AM CDT Narrative [facility] DEPARTMENT OF PATHOLOGY - 6:11 AM CDT If the anticoagulant ratio is incorrect when collecting an EDTA specimen, the hematocrit, mean cell volume (MCV), and mean corpuscular hemoglobin concentration (MCHC) may be inaccurate. ??It is recomm ended to fill the tube to the stated tube volume by vacutainer method. Deisy Bazan MD LAB BLOOD ORDERABLES Performing Organization Address City/State/ZIP Code Phon e Number [facility] DEPARTMENT OF PATHOLOGY [address] [place] [address] [place] Telemetry Waveform (11/26/2021 11:14 PM CDT) Specimen (Source) Anatomical Collection Method Collection Time Re ceived Time Location / / Volume Laterality 11/26/2021 11:14 PM CDT Waveforms Alisa SILVA CV CARDIOECG ORDERABLES Performing Organization Address City/State/ZIP [...] Interface CV CARDIOECG ORDERABLES Performing Organization Address City/[facility]/ZIP Code Phon e Number [facility] Telemetry Waveform [...] Laterality 11/24/2021 11:40 PM CDT Waveforms Interface MD CV CARDIOECG ORDERABLES Performing Organization Address City/State/ZIP Code Phon e Number [place] Telemetry Waveform (11/24/2021 2:42 PM CDT) Specimen (Source) Anatomical Collection Method Collection Time Re ceived Time Location / / Volume Laterality 11/24/2021 2:42 PM CDT Waveforms Interface MD CV CARDIOECG ORDERABLES Performing Organization Address City/State/ZIP Code Phon e Number [place] Telemetry Waveform (11/24/2021 2:42 PM CDT) Specimen (Source) Anatomical Collection Method Collection Time Re ceived Time Location / / Volume Laterality 11/24/2021 2:42 PM CDT Waveforms Interface MD CV CARDIOECG ORDERABLES Performing Organization Address City/State/ZIP Code Phon e Number [place] Telemetry Waveform (11/24/2021 8:30 AM CDT) Specimen (Source) Anatomical Collection Method Collection Time Re ceived Time Location / / Volume Laterality 11/24/2021 8:30 AM CDT Waveforms Interface MD CV CARDIOECG ORDERABLES Performing Organization Address City/State/ZIP Code Phon e Number [place] Telemetry Waveform (11/24/2021 8:30 AM CDT) Specimen (Source) Anatomical Collection Method Collection Time Re ceived Time Location / / Volume Laterality 11/24/2021 8:30 AM CDT Waveforms Interface CV CARDIOECG ORDERABLES Performing Organization Address City/[facility]/ZIP Code Phon e Number [place] (ABNORMAL) MORPHOLOGY REVIEW (11/24/2021 5:02 AM CDT)Only the most recent of2 resultswithin the time period is included. [facility] gist Method Time Signature RBC Morphology abnormal (A) Normal 11/24/2021 [facility] 6:59 AM CDT DEPARTMENT OF PATHOLOGY Anisocytosis Moderate 11/24/2021 [facility] 6:59 AM CDT DEPARTMENT OF PATHOLOGY Macrocytes Moderate 11/24/2021 [facility] 6:59 AM CDT DEPARTMENT OF PATHOLOGY Plt Sufficiency Normal 11/24/2021 [facility] 6:59 AM CDT DEPARTMENT OF PATHOLOGY Specimen Anatomical Collection Method / Collection Time Recei jackelyn Time (Source) Location / Volume Laterality Blood Lab Venipuncture / 11/24/2021 5:02 2021 6:09 Unknown AM CDT AM CDT Misbah Pino MD LAB ONLY COLLECT PERFORMABLE S Performing Organization Address City/State/ZIP Code Phon e Number [facility] DEPARTMENT OF PATHOLOGY [address] [place], [address] [place] (ABNORMAL) CBC with Auto Differential (11/24/2021 5:02 AM CDT)Only the most recent of6 resultswithin the time period is included. [facility] gist Method Time Signature White Blood Cell 6.0 4.0 - 11/24/2021 [facility] Count 10.0 6:24 AM CDT DEPARTMENT OF /formerly [facility] PATHOLOGY Red Blood Cell 3.10 (L) 3.80 - 11/24/2021 [facility] Count 4.80 6:24 AM CDT DEPARTMENT OF /formerly [facility] PATHOLOGY Hemoglobin 8.7 (L) 12.0 - 11/24/2021 [facility] 15.0 g/dL 6:24 AM CDT DEPARTMENT OF PATHOLOGY Hematocrit 29.4 (L) 36.0 - 11/24/2021 [facility] 46.0 % 6:24 AM CDT DEPARTMENT OF PATHOLOGY Mean Corpuscular 94.8 83.0 - 11/24/2021 [facility] Volume 101.0 fl 6:24 AM CDT DEPARTMENT OF PATHOLOGY MCH 28.1 27.0 - 11/24/2021 [facility] 32.0 pg 6:24 AM CDT DEPARTMENT OF PATHOLOGY Mean Corpuscular 29.6 (L) 31.5 - 11/24/2021 [facility] Hemoglobin Conc 34.5 g/dL 6:24 AM CDT DEPARTMENT O F PATHOLOGY Red Cell 14.8 12.0 - 11/24/2021 [facility] Distribution 15.0 6:24 AM CDT DEPARTMENT OF Width PATHOLOGY RDW - SD 51.6 (H) 36.4 - 11/24/2021 [facility] 46.3 fL 6:24 AM CDT DEPARTMENT OF PATHOLOGY Platelet Count 205 150 - 400 11/24/2021 [facility]/formerly [facility] 6:24 AM CDT DEPARTMENT OF PATHOLOGY Mean Platelet 10.7 9.4 - 11/24/2021 [facility] Volume 12.3 fl 6:24 AM CDT DEPARTMENT OF PATHOLOGY Neutrophils 64.0 44.0 - 11/24/2021 [facility] 65.0 % 6:24 AM T DEPARTMENT OF PATHOLOGY Lymphocytes 24.5 (L) 25.0 - 11/24/2021 [facility] Relative 46.0 % 6:24 AM CDT DEPARTMENT OF PATHOLOGY Monocytes 8.2 1.0 - 11/24/2021 [facility] Relative 10.0 % 6:24 AM T DEPARTMENT OF PATHOLOGY Eosinophils 2.7 0.0 - 9.0 11/24/2021 [facility] Relative % 6:24 AM CDT DEPARTMENT OF PATHOLOGY Basophils 0.3 0.0 - 4.0 11/24/2021 [facility] Relative % 6:24 AM CDT DEPARTMENT OF PATHOLOGY Immature 0.3 0.0 - 0.6 11/24/2021 [facility] Granulocytes % 6:24 AM CDT DEPARTMENT OF PATHOLOGY Comment: Immature Granulocytes are the c ombined total of Promyelocytes, Myelocytes, and Metamyelocytes. Nucleated RBC/Auto 0.0 <=0.0 /100WBC 11/24/2021 6:24 A M [facility] DEPARTMENT OF Diff CDT PATHOLOGY Neutrophils 3.84 1.80 - 7.80 11/24/2021 6:24 AM [facility] DE PARTMENT OF Absolute/Auto Diff TH/cmm CDT PATHOLOGY Lymphocyte 1.47 1.00 - 3.00 11/24/2021 6:24 AM [facility] DEP ARTMENT OF Absolute/Auto Diff TH/cmm CDT PATHOLOGY Monocytes 0.49 0.30 - 1.00 11/24/2021 6:24 AM [facility] DEPA RTMENT OF Absolute/Auto Diff TH/cmm CDT PATHOLOGY Eosinophil 0.16 0.00 - 0.50 11/24/2021 6:24 AM [facility] DEP ARTMENT OF Absolute/Auto Diff TH/cmm CDT PATHOLOGY Basophil Absolute/Auto 0.02 0.00 - 0.10 11/24/2021 6:24 AM [facility] DEPARTMENT OF Diff TH/cmm CDT PATHOLOGY Immature Granulocytes 0.02 0.00 - 0.10 11/24/2021 6:24 AM [facility] DEPARTMENT OF Absolute/Auto Diff TH/cmm CDT PATHOLOGY NRBC Absolute/Auto 0.00 TH/cmm 11/24/2021 6:24 AM [facility] DEPARTMENT OF Diff CDT PATHOLOGY Specimen Anatomical Collection Method / Collection Time Recei jackelyn Time (Source) Location / Volume Laterality Blood Lab Venipuncture / 11/24/2021 5:02 2021 6:09 Unknown AM CDT AM CDT Narrative [facility] DEPARTMENT OF PATHOLOGY - 6:24 [...] Organization Address City/State/ZIP Code Phon e Number [facility] DEPARTMENT OF PATHOLOGY [address] [place] [address] [place] (ABNORMAL) Renal function panel (11/24/2021 5:02 AM CDT)Only the most recent of4 resultswithin the time period is included. P athologist Signature Albumin 3.2 (L) 3.5 - 5.5 11/24/2021 [facility] DEPARTMENT g/dL 6:39 AM CDT OF PATHOLOGY Calcium 8.6 8.6 - 10.2 11/24/2021 [facility] DEPARTMENT mg/dL 6:39 AM CDT OF PATHOLOGY Phosphorus 3.9 2.7 - 4.5 11/24/2021 [facility] DEPARTMENT mg/dL 6:39 AM CDT OF PATHOLOGY BUN 11.8 8.0 - 23.0 11/24/2021 [facility] DEPARTMENT mg/dL 6:39 AM CDT OF PATHOLOGY Sodium 139 136 - 145 11/24/2021 [facility] DEPARTMENT mmol/L 6:39 AM CDT OF PATHOLOGY Potassium 4.5 3.4 - 4.5 11/24/2021 [facility] DEPARTMENT mmol/L 6:39 AM CDT OF PATHOLOGY Comment: Please interpret results with c aution due to presence of hemolysis. Chloride 103 98 - 107 mmol/L 11/24/2021 6:39 AM [facility] DEPARTMENT OF CDT PATHOLOGY CO2 26 22 - 29 mmol/L 11/24/2021 6:39 AM [facility] D EPARTMENT OF CDT PATHOLOGY Anion Gap 10.0 6.0 - 14.0 11/24/2021 6:39 AM [facility] DEPAR TMENT OF mmol/L CDT PATHOLOGY Glucose 137 (H) 74 - 106 mg/dL 11/24/2021 6:39 AM [facility] D EPARTMENT OF CDT PATHOLOGY Creatinine Serum/WB 0.82 0.51 - 0.95 11/24/2021 6:39 AM [facility] DEPARTMENT OF mg/dL CDT PATHOLOGY Comment: Elevated levels of N-acetylcyst eine and D-vgurgb-y-benzoquinone imine can cause falsely decreased values. eGFR (from >=60 ml/min/1.73m?? 11/24/2021 6:39 AM [facility] DEPARTMENT OF Creatinine) CDT PATHOLOGY Specimen Anatomical Collection Method / Collection Time Recei jackelyn Time (Source) Location / Volume Laterality Blood Lab Venipuncture / 11/24/2021 5:02 2021 6:09 Unknown AM CDT AM CDT Narrative [facility] DEPARTMENT OF PATHOLOGY - 6:39 [...] Organization Address City/State/ZIP Code Phon e Number [facility] DEPARTMENT OF PATHOLOGY [address] [place] [address] [place] Telemetry Waveform (11/23/2021 11:16 PM CDT) Specimen [...] Laterality 11/23/2021 3:00 PM CDT Waveforms Interface MD CV CARDIOECG [...] MD CV CARDIOECG ORDERABLES Performing Organization Address City/[facility]/ZIP Code Phon e Number [facility] Telemetry Waveform (11/23/2021 12:07 AM CDT) Specimen (Source) Anatomical Collection Method Collection Time Re ceived Time Location / / Volume Laterality 11/23/2021 12:07 AM CDT Waveforms Interface MD CV CARDIOECG ORDERABLES Performing Organization Address City/State/ZIP Code Phon e Number [facility] Telemetry Waveform (11/22/2021 4:16 PM CDT) Specimen (Source) Anatomical Collection Method Collection Time Re ceived Time Location / / Volume Laterality 11/22/2021 4:16 PM CDT Waveforms Interface MD CV CARDIOECG ORDERABLES Performing Organization Address City/[facility]/ZIP Code Phon e Number [place] Telemetry Waveform (11/22/2021 7:31 AM CDT) Specimen (Source) Anatomical Collection Method Collection Time Re ceived Time Location / / Volume Laterality 11/22/2021 7:31 AM CDT Waveforms Interface MD CV CARDIOECG ORDERABLES Performing Organization Address City/State/ZIP Code Phon e Number [place] (ABNORMAL) Magnesium (11/22/2021 6:55 AM CDT)Only the most recent of5 results within the time period is included. P athologist Signature Magnesium 1.5 (L) 1.7 - 2.5 11/22/2021 [facility] DEPARTMENT mg/dL 7:51 AM CDT OF PATHOLOGY Specimen Anatomical Collection Method / Collection Time Recei jackelyn Time (Source) Location / Volume Laterality Blood Lab Venipuncture / 11/22/2021 6:55 2021 7:24 Unknown AM CDT AM CDT Raysa Prajapati MD LAB BLOOD ORDERABLES Performing Organization Address City/[facility]/ZIP Code Phon e Number [facility] DEPARTMENT OF PATHOLOGY [address] [place] [address] Street Telemetry Waveform (11/22/2021 1:19 AM CDT) Specimen (Source) Anatomical Collection Method Collection Time Re ceived Time Location / / Volume Laterality 11/22/2021 1:19 AM CDT Waveforms Interface CV CARDIOECG ORDERABLES Performing Organization Address [facility]/ZIP Code Phon e Number [place] Telemetry Waveform (11/21/2021 2:26 PM CDT) Specimen (Source) Anatomical Collection Method Collection Time Re ceived Time Location / / Volume Laterality 11/21/2021 2:26 PM CDT Waveforms Interface CV CARDIOECG ORDERABLES Performing Organization Address City/[facility]/ZIP Code Phon e Number [place] Telemetry Waveform (11/21/2021 7:37 AM CDT) Specimen (Source) Anatomical Collection Method Collection Time Re ceived Time Location / / Volume Laterality 11/21/2021 7:37 AM CDT Waveforms Interface CV CARDIOECG ORDERABLES Performing Organization Address City/[facility]/ZIP Code Phon e Number [place] Telemetry Waveform (11/20/2021 11:28 PM CDT) Specimen (Source) Anatomical Collection Method Collection Time Re ceived Time Location / / Volume Laterality 11/20/2021 11:28 PM CDT Waveforms Interface CV CARDIOECG ORDERABLES Performing Organization Address City/[facility]/ZIP Code Phon e Number [facility] XR Pelvis 1 or 2 Views (11/20/2021 [...] with the findings of this report. Raysa [facility] ORDER BABAK ANES Performed [facility]/Invasive (11/20/2021 5:05 PM CDT) Specimen (Source) Anatomical Location Collection Method / Collectio n Time Received Time / Laterality Volume Narrative Radiology, Silent [employer]s - 11/20/2021 5:05 PM CDT This procedure was performed during a surgical case. Please see the anesthetic note for the f ormal interpretation. [facility] AFB culture w/ Stain (11/20/2021 3:01 PM CDT) [facility] Method Time Signature Culture, AFB No Acid Fast 01/08/2022 [facility] bacilli 5:46 PM CDT DEPARTMENT OF isolated PATHOLOGY AFB Smear No acid fast 01/08/2022 [facility] bacilli seen on 5:46 PM CDT [facility] direct smear fluorescent stain. Comment: [...] - GENERAL ORDER BABAK Performing Organization Address City/[facility]/ZIP Code Phon e Number [facility] DEPARTMENT OF PATHOLOGY [address] [place] [address], [place] [address] Street Deep Wound/Tissue Culture with stain (11/20/2021 3:01 PM CDT)Only the most recent of2 resultswithin the time period is included. [facility] Method [place] Signature Culture, Deep No Growth 11/23/2021 [facility] Wound after 72 9:47 AM CDT DEPARTMENT OF hours PATHOLOGY Gram Stain No WBC's 11/23/2021 [facility] Result seen. No 9:47 AM CDT DEPARTMENT OF organisms PATHOLOGY seen. Specimen Anatomical Collection Method Collection Time Receive d Time (Source) Location / / Volume Laterality Tissue BODY TISSUE 11/20/2021 3:01 PM 2 3:47 STRUCTURE / CDT PM CDT Unknown Comment: right hip synovium Blas Armendariz MD MICROBIOLOGY - GENERAL ORDER BABAK Performing Organization Address City/State/ZIP Code Phon e Number [facility] DEPARTMENT OF PATHOLOGY [address] [place] [address], [place] [address] Street Anaerobic culture (11/20/2021 3:01 PM CDT)Only the most recent of2 resultswithin the time period is included. [facility] Method Time Signature Culture, No anaerobes 11/24/2021 [facility] Anaerobe isolated 5:24 PM CDT DEPARTMENT OF PATHOLOGY Specimen Anatomical Collection Method Collection Time Receive d Time (Source) Location / / Volume Laterality Tissue BODY TISSUE 11/20/2021 3:01 PM 2 3:47 STRUCTURE / CDT PM CDT Unknown Comment: right hip synovium Blas Armendariz MD MICROBIOLOGY - GENERAL ORDER BABAK Performing Organization Address City/State/ZIP Code Phon e Number [facility] DEPARTMENT OF PATHOLOGY [address], [address] [place] Surgical Pathology Specimen (11/20/2021 2:42 PM CDT) Component Value Ref Test Analysis Performed At [facility] gist Range Method Time Signature Case Report Surgical Pathology ?Case: [id number] ? 11/24/2021 [facility] Authorizing Provider: ??Jenni Armendariz MD ? Collected: ? 11/20/2021 1442 ? 9:36 AM DEPARTM ENT Ordering Location: ? [facility] OR ?Received: ?11/21/2021 0853 ? CDT OF PATHOLOGY Pathologist: ? Sue Musa MD ? Specimen: ?Hip, Right, R ight Hip ? Final A. SOFT TISSUE, HIP, RIGHT, EXCISION: [facility] Electronically Diagnosis - Fragments of [...] at 9:36 AM Clinical Right Hip 11/24/2021 [facility] Information 9:36 AM DEPARTMENT CDT OF PATHOLOGY Gross A. Hip, Right. 11/24/2021 [facility] Description Specimen A is received in fo rmalin labeled with patient's name, medical record number, ? right hip? and consists of an aggregate of taylor, fibrous tissue fragments (4.2 x 3.1 x 0.7 cm) which is divided and submitted entirely in A 1-A 4. (AI) 9:36 AM DEPARTMENT CDT OF PATHOLOGY Additional 11/24/2021 [facility] Electron ically Information Unless specified otherwise a ho, the quality of the H&E and any other special stains performed at [facility] Pathology Laboratory (AFB, PAS, immunostains, etc) is sati 9:36 AM [facility]PARTMENT [facility], and any internal o r external positive and negative controls react appropriately. CDT OF PATHOLOGY Sue Musa MD on Any immunohistochemical, imm unofluorescence, or in-situ hybridization tests included in this report that were performed at [facility] were developed and their performance c 11/24/2021 at [facility] determined by [facility]. They have not been cleared or approved by the U.S. Food and Drug Administration (FDA). The FDA has determined that such clearance o 9:36 AM r approval is not necessary. These tests are used for clinical purposes. They should not be regarded as investigational or for research. The [facility] is certified under t he Clinical Laboratory [...] Organization Address City/State/ZIP Code Phon e Number [facility] DEPARTMENT OF PATHOLOGY [address], [address] [address] Telemetry Waveform (11/19/2021 11:42 PM CDT) Specimen (Source) Anatomical Collection Method Collection Time Re ceived Time Location / / Volume Laterality 11/19/2021 11:42 PM CDT Waveforms Interface CV CARDIOECG ORDERABLES Performing Organization Address City/[facility]/ZIP Code Phon e Number [place] (ABNORMAL) Hemoglobin A1c (11/19/2021 6:16 PM CDT) Analysis Performed At Patho logist Time Signature Hemoglobin A1C 7.1 (H) 4.2 - 6.0 11/19/2021 [facility] % 7:36 PM CDT DEPARTMENT OF PATHOLOGY Comment: For evaluation of glycemic control in kn own diabetic non- adults: ?A1C <7% lower or higher target A1C values maybe appropriate for individual patients. For the diagnosis of diabetes mellitus: A1C >/=6.5% Increased risk for diabetes mellitus: ?? A1C 5.7-6.4% Mean Bld Glu Estimate 157 mg/dL 11/19/2021 7:36 PM CDT [facility] DEPARTMENT OF PATHOLOGY Comment: The [...] MD LAB BLOOD ORDERABLES Performing Organization Address [facility]/ZIP Code Phon e Number [facility] DEPARTMENT OF PATHOLOGY [address], [address] [place] (ABNORMAL) Sedimentation rate (11/19/2021 6:29 AM CDT) [facility] Method Time Signature Erythrocyte 60.0 (H) 2.0 - 11/19/2021 [facility] Sedimentation 39.0 7:14 AM CDT DEPARTMENT OF Rate mm/hr PATHOLOGY Specimen Anatomical Collection Method Collection Time Receive d Time (Source) Location / / Volume Laterality Blood Collected during 11/19/2021 6:29 AM 11/19 6:39 insertion of IV / CDT AM CDT Unknown Narrative [facility] DEPARTMENT OF PATHOLOGY - 2 7:14 AM CDT If the anticoagulant ratio is incorrect when collecting an EDTA specimen, erythrocyte sedimentation rate may be erroneous. ??I t is recommended to fill the tube to the stated tube volume by vacutainer method. Raysa Prajapati MD LAB BLOOD ORDERABLES Performing Organization Address City/[facility]/ZIP Code Phon e Number [facility] DEPARTMENT OF PATHOLOGY [address] [place] [address], [place] [id number] [place] (ABNORMAL) C-reactive protein (11/19/2021 6:29 AM CDT) [facility] Signature C-Reactive 1.73 (H) 0.00 - 11/19/2021 [facility] Protein 0.50 mg/dL 7:18 AM CDT DEPARTMENT OF PATHOLOGY Specimen Anatomical Collection Method Collection Time Receive d Time (Source) Location / / Volume Laterality Blood Collected during 11/19/2021 6:29 AM 11/19 6:39 insertion of IV / CDT AM CDT Unknown Narrative [facility] DEPARTMENT OF PATHOLOGY - 2 7:18 AM CDT Significantly decreased CRP values may b e obtained from samples taken from patients who have been treated with carboxypenici llins. Raysa Prajapati MD LAB BLOOD ORDERABLES Performing Organization Address City/State/ZIP Code Phon e Number [facility] DEPARTMENT OF PATHOLOGY [address] [place] [address], [place] [address] [place] (ABNORMAL) Urinalysis with microscopic (11/19/2021 5:04 AM CDT) [facility] Method Time Signature Color UA Yellow Colorless, 11/19/2021 [facility] Light-Yello 5:27 AM CDT DEPARTMENT OF w, Yellow, PATHOLOGY Straw, Pale Yellow Clarity UA Slightly Clear, 11/19/2021 [facility] Cloudy Cloudy, 5:27 AM CDT DEPARTMENT OF Hazy, PATHOLOGY Slightly Cloudy, Slightly Hazy, Lightly Turbid, Other Leukocytes UA 11/19/2021 [facility] 5:27 AM CDT DEPARTMENT OF PATHOLOGY Protein UA 50.0 (A) Negative 11/19/2021 [facility] mg/dL 5:27 AM CDT DEPARTMENT OF PATHOLOGY Nitrite UA Negative Negative 11/19/2021 [facility] 5:27 AM CDT DEPARTMENT OF PATHOLOGY Blood UA 11/19/2021 [facility] 5:27 AM CDT DEPARTMENT OF PATHOLOGY Glucose Negative Negative 11/19/2021 [facility] mg/dL 5:27 AM CDT DEPARTMENT OF PATHOLOGY Ketones UA Trace (A) Negative 11/19/2021 [facility] mg/dL 5:27 AM CDT DEPARTMENT OF PATHOLOGY Ph UA 6.0 5.0 - 7.5 11/19/2021 [facility] 5:27 AM CDT DEPARTMENT OF PATHOLOGY Specific [place] 1.028 1.003 - 11/19/2021 [facility] UA 1.035 5:27 AM CDT DEPARTMENT OF PATHOLOGY Bilirubin UA Negative Negative 11/19/2021 [facility] mg/dL 5:27 AM CDT DEPARTMENT OF PATHOLOGY Urobilinogen UA Normal Normal 11/19/2021 [facility] mg/dL 5:27 AM CDT DEPARTMENT OF PATHOLOGY Bacteria UA None Absent, 11/19/2021 [facility] None /HPF 5:27 AM CDT DEPARTMENT OF PATHOLOGY Mucous UA Many (A) Rare, 11/19/2021 [facility] Occasional, 5:27 AM CDT DEPARTMENT OF None /LPF PATHOLOGY WBC UA 7.0 (H) 0.0 - 4.0 11/19/2021 [facility] /HPF 5:27 AM CDT DEPARTMENT OF PATHOLOGY RBC UA 79.0 (H) 0.0 - 4.0 11/19/2021 [facility] /HPF 5:27 AM CDT DEPARTMENT OF PATHOLOGY Squamous 4.0 (H) 0.0 - 3.0 11/19/2021 [facility] Epithelial UA /HPF 5:27 AM CDT DEPARTMENT OF PATHOLOGY Comment: The presence of these items may indicate contamination or an improperly collected specimen. Ca Oxalate Alicja UA Occasional Rare, Occasional, 11/19/2021 5:27 [facility] DEPARTMENT None /HPF AM CDT OF PATHOLOGY Leukocytes UA 25.0 (A) Negative Jacinto/uL 11/19/2021 5:27 [facility] DEPARTMENT JACINTO/UL AM CDT OF PATHOLOGY Comment: Not all white cells will demons trate leukocyte esterase activity. Blood UA, mg/dL 0.5 (A) Negative, 0.03 11/19/2021 5:27 AM [facility] DEPARTMENT OF mg/dL CDT PATHOLOGY Specimen Anatomical Collection Method Collection Time Receive d Time (Source) Location / / Volume Laterality Urine URINE / Unknown Non-blood 11/19/2021 5:04 AM 2021 5:09 collection / CDT AM CDT Unknown Narrative [facility] DEPARTMENT OF PATHOLOGY - 5:27 AM CDT NOTE: If delivery of a specimen to the aboratory is unavoidably delayed, arrangements must be made for refrigerat ion of the specimen to maintain integrity of cells and formed elements. ??Interpret r esults with caution if specimen is more than 1 - 2 hours old. Rasheeda Fernandes Jr., MD URINE ORDERABLES Performing Organization Address City/State/ZIP Code Phon e Number [facility] DEPARTMENT OF PATHOLOGY [address] [place] [address] [place] Vitamin D (11/19/2021 4:01 AM CDT) P athologist Signature Vit D, 29.9 6.6 - 49.0 11/19/2021 [facility] DEPARTMENT 25-Hydroxy ng/mL 11:00 AM CDT OF PATHOLOGY Specimen Anatomical Collection Method Collection Time Receive d Time (Source) Location / / Volume Laterality Blood Collected during 11/19/2021 4:01 AM 11/19 4:31 insertion of IV / CDT AM CDT Unknown Narrative [facility] DEPARTMENT OF PATHOLOGY - 11:00 AM CDT <10 ng/mL ??(severe deficiency) [...] Organization Address City/State/ZIP Code Phon e Number [facility] DEPARTMENT OF PATHOLOGY [address] [place] [address] [place] XR Chest 1 View (11/19/2021 12:28 AM [...] ? [facility] [place] [facility] Gender: ? F ?Time Buyer: ?? [id number] : ?1955 ? Requested By: RASHEEDA Chavez Order Number: [id number] ?Reading : ?? Rasheeda Barbosa ? Measurements Intervals ?[place] ? Rate: ? 76 ? P: ?15 AK: ? 178 ?QRS: ?-5 QRSD: ? 110 ?T: ?32 QT: ? 404 ? QTc: ?455 ? Interpretive Statements Sinus rhythm Compared to ECG 04/10/2020 09:11:35 No significant change Electronically signed by Rasheeda nicolas 11-19-2021 5:40:51 CDT Rasheeda Fernandes Jr., MD CV CARDIOECG ORDERABLES Performing Organization Address City/State/ZIP Code Phon e Number CARDIOLOGY CARDIOECG-ORDERS Protime-INR (11/18/2021 11:38 PM CDT) P athologist Signature Prothrombin Time 12.3 10.3 - 11/19/2021 [facility] 13.5 sec 12:37 AM CDT DEPARTMENT OF PATHOLOGY INR 1.03 0.80 - 11/19/2021 [facility] 1.10 12:37 AM CDT DEPARTMENT [...] MD LAB BLOOD ORDERABLES Performing Organization Address City/[facility]/ZIP Code Phon e Number [facility] DEPARTMENT OF PATHOLOGY [address] [place] [address] Street Type and screen (11/18/2021 11:38 PM CDT) [facility] gist Method Time Signature ABO/RH TYPE A Positive 11/19/2021 [facility] ([place]) 12:57 AM CDT BLOOD BANK LAB Antibody Negative 11/19/2021 [facility] Screen 12:57 AM CDT BLOOD BANK LAB Specimen Anatomical Collection Method Collection Time Receive d Time (Source) Location / / Volume Laterality Blood Collected during 11/18/2021 11:38 022 insertion of IV / PM CDT 12:00 AM C DT Unknown Rasheeda Fernandes Jr., MD BLOOD BANK TEST ORDERABLES Performing Organization Address City/[facility] Phon e Number [facility] BLOOD BANK LAB [address] [place] [address] [phone] XR Knee Right 3 Views (11/18/2021 6:27 [...] is in expected position relative to the crow distal femur. RIGHT KNEE: No acute fracture [...] is in expected position relative to the crow distal femur. RIGHT KNEE: No acute fracture [...] of this report. Rasheeda Fernandes Jr., MD [facility] DIAGNOSTIC IMAGING ORDER BABAK XR Hip WWO Pelvis Right 2 or 3 Views (11/18/2021 6:27 PM CDT) Anatomical Region Laterality Modality Hip, Pelvis Computed Radiography Specimen (Source) Anatomical Collection [...] is in expected position relative to the crow distal femur. RIGHT KNEE: No acute fracture [...] is in expected position relative to the crow distal femur. RIGHT KNEE: No acute fracture [...] of this report. Rasheeda Fernandes Jr., MD IM DIAGNOSTIC IMAGING ORDER BABAK XR Femur Right [...] is in expected position relative to the crow distal femur. RIGHT KNEE: No acute fracture [...] is in expected position relative to the crow distal femur. RIGHT KNEE: No acute fracture or dislocation. Modera te osteoarthritis. IMPRESSION: Dislocation of the right hip arthroplast y. No acute fracture or dislocation of the distal femur or knee. RESIDENT RADIOLOGIST: [place] Luke, M.D. ATTENDING RADIOLOGIST: Malcom Munroe. I have personally reviewed the image(s) and the resident's interpretations, performed any necessary editing, and agree with the findings of this report. Rasheeda Fernandes Jr., MD IMG DIAGNOSTIC IMAGING ORDER BABAK (ABNORMAL) Phosphorus (11/18/2021 4:58 PM CDT) P athologist Signature Phosphorus 4.9 (H) 2.7 - 4.5 11/18/2021 [facility] DEPARTMENT mg/dL 5:48 PM CDT OF PATHOLOGY Specimen Anatomical Collection Method Collection Time Receive d Time (Source) Location / / Volume Laterality Blood Collected during 11/18/2021 4:58 PM 11/18 5:10 insertion of IV / CDT PM CDT Unknown Rasheeda Fernandes Jr., MD LAB BLOOD ORDERABLES Performing Organization Address [facility] Phon e Number [facility] DEPARTMENT OF PATHOLOGY [address] [place] [address], [place] [address] [place] ED Screening for Hepatitis C (11/18/2021 4:58 PM CDT) Analysis Performed At Patho logist Time Signature Hepatitis C Not Not DORADO 11/18/2021 [facility] Antibody Detected Detected OUTSOLE FLEXER 5:52 PM CDT DEPARTMENT OF I2000 PATHOLOGY [...] MD LAB BLOOD ORDERABLES Performing Organization Address City/[facility] Phon e Number [facility] DEPARTMENT OF PATHOLOGY [address] [place] [address], [place] [address] [place] documented in this encounter Visit Diagnoses Diagnosis Closed dislocation of right hip, initial encounter (HCC) Right hip pain Pain in joint, pelvic region and thigh Dislocation of hip joint prosthesis, ini tial encounter (HCC) Stage 3a chronic kidney disease, GFR 45- 60 ml/min (HCC) Morbid obesity with BMI of 45.0-49.9, ad ult (HCC) Right hip subluxation, sequela Hypertension Unspecified essential hypertension Diabetes mellitus (HCC) Type II or unspecified type diabetes melissa litus without mention of complication, not stated as uncontrolled documented in this encounter Admitting Diagnoses Diagnosis Right hip subluxation, sequela documented in this encounter Administered Medications Inactive Administered Medications - up to 3 most recent administrations Medication Order MAR Action Action Date Dose Rate Site acetaminophen (TYLENOL) suppository 650 mg 650 mg Every 4 hours PRN, Rectal, Mild P ain, Fever (Temp > 100.4), Starting on Wed11/18/21 at 2345 acetaminophen (TYLENOL) tablet 1,000 mg Given 11/23/2021 6:34 AM CDT 1,000 mg 1,000 mg Every 8 hours, Oral, First dose on Wed11/22/21 at 1230 Given 11/22/2021 9:12 PM CDT 1,000 mg Given 11/22/2021 1:53 PM CDT 1,000 mg acetaminophen (TYLENOL) tablet 650 mg Given 11/22/2021 9:11 PM CDT 650 mg 650 mg Every 4 hours PRN, Oral, Mild Pain, Fever (Temp > 100.4), Starting on Wed11/18/21 at 2345 Aspirin Low Dose chewable tablet CHEW 81 mg Given 11/27/2021 9:20 AM CDT 81 mg 81 mg Daily, Oral, First dose on Wed11/19/21 at 0900 Given 11/26/2021 9:16 AM CDT 81 mg Given 11/25/2021 8:22 AM CDT 81 mg calcium carbonate-vitamin D (CALTRATE D) Given 11/27/2021 9:20 A M CDT 1 tablet 600-400 MG-UNIT per tablet 1 tablet 1 tablet BID-2 times daily, Oral, First dose on Wed11/19/21 at 0015 Given 11/26/2021 9:27 PM CDT 1 tablet Given 11/26/2021 9:17 AM CDT 1 tablet carvedilol (COREG) tablet 12.5 mg Given 11/27/2021 9:20 AM CDT 12.5 mg 12.5 mg 2 times daily with meals, Oral, First dose on Wed11/19/21 at 0800 Given 11/26/2021 4:42 PM CDT 12.5 mg Given 11/26/2021 9:16 AM CDT 12.5 mg ceFAZolin (ANCEF) injection 2 g Given 11/21/2021 8:41 AM CDT 2 g 2 g Every 8 hours scheduled (3 times per day), Intravenous, Indications: Perioperative Infection Pharmacoprophylaxis, 3 doses, First dose on Wed11/20/21 at 1900, Last dose on Wed11/21/21 at 0900 Given 11/21/2021 2:58 AM CDT 2 g Given 11/20/2021 6:43 PM CDT 2 g diphenhydrAMINE (BENADRYL) capsule 25 mg Given 11/24/2021 9:43 AM CDT 25 mg 25 mg Every 6 hours PRN, Oral, Itching, Starting on Wed11/21/21 at 0820 Given 11/24/2021 2:56 AM CDT 25 mg Given 11/23/2021 9:17 PM CDT 25 mg diphenhydrAMINE (BENADRYL) capsule 50 mg Given 11/27/2021 10:31 AM CDT 50 mg 50 mg Every 6 hours PRN, Oral, Itching, Starting on Wed11/24/21 at 1332 Given 11/26/2021 9:33 PM CDT 50 mg Given 11/25/2021 9:15 PM CDT 50 mg electrolyte-A (PLASMALYTE-A) solution New Bag 11/19/2021 11:59 PM CDT 125 mL/hr at 125 mL/hr, Intravenous, Continuous, Starting on Wed11/19/21 at 1245, For 12 hours New Bag 11/19/2021 4:59 PM CDT 125 mL/hr New Bag 11/19/2021 12:35 PM CDT 125 mL/hr Enoxaparin Sodium (LOVENOX) Given 11/27/2021 9:20 AM CDT 40 mg Abdominal Tissue injection 40 mg 40 mg BID-2 times daily, Subcutaneous, First dose on Wed11/23/21 at 1030 Given 11/26/2021 9:27 PM CDT 40 mg Abdom inal Tissue Given 11/26/2021 9:16 AM CDT 40 mg Abdom inal Tissue fentaNYL Citrate (PF) (SUBLIMAZE) injection Given 11/20/2021 6:00 PM CDT 25 mcg 25 mcg 25 mcg Every 10 min PRN, Intravenous, Pain scale 4-6, Starting on Griselda 11/20/21 at 1653, PACU Given 11/20/2021 5:50 PM CDT 25 mcg Given 11/20/2021 5:10 PM CDT 25 mcg HYDROcodone-acetaminophen (NORCO) 10-325 MG Given 11/01 6:07 AM CDT 1 tablet per tablet 1 tablet 1 tablet Every 6 hours PRN, Oral, Moderate Pain, Starting on Wed11/18/21 at 2345 Given 11/20/2021 8:03 PM CDT 1 tablet Given 11/19/2021 8:19 AM CDT 1 tablet HYDROcodone-acetaminophen (NORCO) 10-325 Given 11/24/2021 9: 43 AM CDT 2 tablets MG per tablet 2 tablet 2 tablet Every 6 hours PRN, Oral, Moderate Pain, Starting on Wed11/23/21 at 1000 Given 11/24/2021 2:56 AM CDT 2 tablets Given 11/23/2021 9:17 PM CDT 2 tablets HYDROcodone-acetaminophen (NORCO) 10-325 Given 10:31 AM CDT 2 tablets MG per tablet 2 tablet 2 tablet Every 4 hours PRN, Oral, Moderate Pain, Starting on Wed11/24/21 at 1345 Given 11/26/2021 9:29 PM CDT 2 tablets Given 11/26/2021 3:12 PM CDT 2 tablets HYDROmorphone (DILAUDID) injection 0.5 m g Given 11/27/2021 1:04 AM CDT 0.5 mg 0.5 mg Every 4 hours PRN, Intravenous, Severe pain unrelieved by oral as needed medications, Starting on Wed11/26/21 at 1211 HYDROmorphone (DILAUDID) injection 1 mg Given 11/19/2021 9:27 AM CDT 1 mg 1 mg Once, Intravenous, On Wed11/19/21 at 0800, For 1 dose HYDROmorphone (DILAUDID) injection 1 mg Given 11/26/2021 9:59 AM CDT 1 mg 1 mg Every 4 hours PRN, Intravenous, Severe pain unrelieved by oral as needed medications, Starting on Wed11/25/21 at 1214 HYDROmorphone (DILAUDID) injection 2 mg Given 11/21/2021 7:50 AM CDT 2 mg 2 mg Every 4 hours PRN, Intravenous, Severe Pain, Starting on Wed11/18/21 at 2345 Given 11/21/2021 3:18 AM CDT 2 mg Given 11/20/2021 10:36 PM CDT 2 mg HYDROmorphone (DILAUDID) injection 2 mg Given 11/24/2021 11:16 AM CDT 2 mg 2 mg Every 6 hours PRN, Intravenous, Severe Pain, Severe pain unrelieved by oral as needed medications, for use with physical therapy, Starting on Wed11/23/21 at 1001 HYDROmorphone (DILAUDID) injection 2 mg Given 11/25/2021 8:52 AM CDT 2 mg 2 mg Every 4 hours PRN, Intravenous, Severe Pain, Severe pain unrelieved by oral as needed medications, for use with physical therapy, Starting on Wed11/24/21 at 1345 HYDROmorphone CABINET MOUNTER 0.2 mg/mL New Syringe/Cartridge 11/22/2021 11:24 PM CDT Intravenous, Continuous, Starting on Wed11/21/21 at 1015, Until Wed11/23/21 at 1002, Infuse via primary IV line. Rate/Dose Verify 11/22/2021 9:11 PM CDT Rate/Dose Verify 11/22/2021 6:05 PM CDT Insulin Lispro 0-5 Units Given 11/21/2021 8:42 AM CDT 1 Units Abdom inal Tissue 0-5 Units 3 times daily before meals, Subcutaneous, First dose on Wed11/19/21 at 0730 lactated ringers infusion New Bag 11/20/2021 6:45 PM CDT 100 mL/hr at 100 mL/hr, Intravenous, Continuous, Starting on Wed11/20/21 at 1900, For 12 days, Post-op magnesium hydroxide (MILK OF MAGNESIA) 400 Given 11/25/2021 1:51 PM CDT 30 mLs MG/5ML suspension 30 mL 30 mL ONCE, Oral, On Wed11/25/21 at 1230, For 1 dose magnesium hydroxide (MILK OF MAGNESIA) 400 Given 11/26/2021 3:12 PM CDT 30 mLs MG/5ML suspension 30 mL 30 mL ONCE, Oral, On Wed11/26/21 at 1230, For 1 dose magnesium sulfate IV premix 2 g New Bag 11/22/2021 1:44 PM CDT 2 g 25 mL/hr 2 g, Intravenous, Administer over 2 Hours, at 25 mL/hr, Once, On Wed11/22/21 at 1330, For 1 dose, Infuse 1 gram/hour mirtazapine (REMERON) tablet 30 mg Given 11/26/2021 9:27 PM CDT 30 mg 30 mg Nightly, Oral, First dose on Wed11/19/21 at 0015 Given 11/25/2021 9:02 PM CDT 30 mg Given 11/24/2021 8:32 PM CDT 30 mg Morphine Sulfate (PF) injection 8 mg Given 11/18/2021 5:03 PM CDT 8 mg 8 mg Once, Intravenous, On Wed11/18/21 at 1700, For 1 dose Morphine Sulfate (PF) injection 8 mg Given 11/18/2021 6:16 PM CDT 8 mg 8 mg Once, Intravenous, On Wed11/18/21 at 1815, For 1 dose Morphine Sulfate (PF) injection 8 mg Given 11/18/2021 8:20 PM CDT 8 mg 8 mg Once, Intravenous, On Wed11/18/21 at 2030, For 1 dose naloxone (NARCAN) 0.4 MG/ML injection 0. 4 mg 0.4 mg PRN, Intravenous, Opioid Reversal, Starting on Wed11/21/21 at 0952 ondansetron (ZOFRAN) injection 4 mg Given 11/24/2021 12:58 PM CDT 4 mg 4 mg Every 8 hours PRN, Intravenous, Nausea, Starting on Wed11/18/21 at 2345 Given 11/22/2021 1:53 PM CDT 4 mg polyethylene glycol (GLYCOLAX) packet 17 g Given 11/27/2021 9:20 AM CDT 17 g 17 g Daily, Oral, First dose on Wed11/19/21 at 0900 Given 11/26/2021 9:17 AM CDT 17 g Given 11/25/2021 8:22 AM CDT 17 g potassium chloride SA (K-DUR,KLOR-CON) CR Given 11/25/2021 8:22 AM CDT 20 mEq tablet 20 mEq 20 mEq Daily, Oral, First dose on Wed11/19/21 at 0900 Given 11/24/2021 9:02 AM CDT 20 mEq Given 11/20/2021 8:47 AM CDT 20 mEq rOPINIRole (REQUIP) tablet 2 mg Given 11/19/2021 9:19 PM CDT 2 mg 2 mg Nightly, Oral, First dose on Wed11/19/21 at 0015 Given 11/19/2021 12:05 AM CDT 2 mg rOPINIRole (REQUIP) tablet 2 mg Given 11/27/2021 5:39 AM CDT 2 mg 2 mg 2 times daily, Oral, First dose (after last modification) on Wed11/20/21 at 2100 Given 11/26/2021 4:42 PM CDT 2 mg Given 11/26/2021 5:45 AM CDT 2 mg senna (SENOKOT) 17.2 mg Given 11/26/2021 9:27 PM CDT 17.2 mg 17.2 mg Nightly (2 tablet), Oral, First dose (after last modification) on Wed11/26/21 at 2100 senna (SENOKOT) 8.6 mg Given 11/25/2021 9:02 PM CDT 8.6 mg 8.6 mg Nightly (1 tablet), Oral, First dose on Wed11/25/21 at 2100 sodium chloride 0.9 % infusion New Bag 11/24/2021 2:13 PM CDT 100 mL/hr at 100 mL/hr, Intravenous, Continuous, Starting on 11/22/21 at 1330, For 10 days New Bag 11/22/2021 1:44 PM CDT 100 mL/hr therapeutic multivitamin-minerals Given 11/27/2021 9:20 AM CDT 1 tablet (THERAGRAN-M) tablet 1 tablet 1 tablet Daily, Oral, First dose on Wed11/20/21 at 1445 Given 11/26/2021 9:16 AM CDT 1 tablet Given 11/25/2021 8:22 AM CDT 1 tablet venlafaxine (EFFEXOR-XR) 24 hr capsule 1 50 mg Given 11/27/2021 9:20 AM CDT 150 mg 150 mg Daily, Oral, First dose on Wed11/19/21 at 0900 Given 11/26/2021 9:16 AM CDT 150 mg Given 11/25/2021 8:22 AM CDT 150 mg documented in this encounter Active and Recently Administered Medications Times are shown in CDT. Scheduled Medication Order 11/25/2021 11/26/2021 11/27/2021 Aspirin Low Dose chewable tablet CHEW 81 mg 0822 (Give n - Provider: Radha Rizzo RN) 0916 (Given - Provider: Juan Esposito, LEILA) 0920 (Give n - Provider: Juan Espsoito RN) 81 mg Daily, Oral, First dose on Wed11/19/21 at 0900 calcium carbonate-vitamin D (CALTRATE D) 600-400 MG-UN IT per tablet 1 tablet 821 (Given - Provider: Radha Rizzo RN)2101 (Given - Provider: Ashleigh Martini LPN) 09 (Given - Provider: Juan Esposito RN)2126 (Given - Provider: Ashleigh Martini LPN) 0920 (Given - Provider: Juan Esposito RN) 1 tablet BID-2 times daily, Oral, First dose on Wed11/19/21 at 0 015 carvedilol (COREG) tablet 12.5 mg 0822 (Given - Provid er: Radha Rizzo RN)1726 (Given - Provider: Radha Rizzo RN) 0916 (Given - Provider: Juan Esposito RN)1642 (Given - Provider: Juan Esposiot RN) 0920 (Given - Provider: Juan Esposito RN) 12.5 mg 2 times daily with meals, Oral, First dose on Wed 2 at 0800 Enoxaparin Sodium (LOVENOX) injection 40 mg 0822 (Give n - Provider: Radha Rizzo RN)2101 (Given - Provider: Ashleigh Martini LPN) 0916 (Given - Provider: Juan Esposito RN)2126 (Given - Provider: Ashleigh Martini LPN) 0920 (Given - Provider: Juan Esposito RN) 40 mg BID-2 times daily, Subcutaneous, First dose on Wed11/23/21 at 1030 Insulin Lispro 0-5 Units 0714 (Not Given - Provider: Radha Rizzo RN - Reason: Order parameters not met)1043 (Not Given - Provider: Radha Rizzo RN - Reason: Order parameters not met) 0819 (Not Given - Provider: Juan Esposito RN - Reason: Order parameters not met)1218 (Not Given - Provider: Juan Esposito RN - Reason: Order parameters not met)1612 (Not Given - Provider: Juan Esposito RN - Reason: Order parameters not met) 0722 (Not Given - Provider: Juan Esposito RN - Reason: Order parameters not met)1215 (Not Given - Provider: Juan Esposito RN - Reason: Order parameters not met) 0-5 Units 3 times daily before meals, Hilario bcutaneous, First dose on Wed11/19/21 at 0730 1707 (Not Given - Provider: Radha baxter RN - Reason: Order parameters not met) magnesium hydroxide (MILK OF MAGNESIA) 400 MG/5ML susp ension 30 mL (COMPLETED) 1351 (Given - Provider: Radha Rizzo RN) 30 mL ONCE, Oral, On Wed11/25/21 at 1230, For 1 dose magnesium hydroxide (MILK OF MAGNESIA) 400 MG/5ML suspension 30 mL (COMPLETED) 1512 (Given - Provider: Juan Esposito RN) 30 mL ONCE, Oral, On Wed11/26/21 at 1230, For 1 dose mirtazapine (REMERON) tablet 30 mg 2101 (Given - Provi josie: Ashleigh Martini LPN) 2126 (Given - Provider: Ashleigh Martini LPN) 30 mg Nightly, Oral, First dose on Wed11/19/21 at 0015 polyethylene glycol (GLYCOLAX) packet 17 g 22 (Given - Provider: Radha Rizzo RN) 0917 (Given - Provider: Juan Esposito RN) 0920 (Give n - Provider: Juan Esposito RN) 17 g Daily, Oral, First dose on Wed11/19/21 at 0900 potassium chloride SA (K-DUR,KLOR-CON) CR tablet 20 mE q 0822 (Given - Provider: Radha iRzzo RN) 0917 (Not Given - Provider: Juan duenas RN - Reason: Other - Comment: potassium 4.6) 0921 (Not Given - Provider: Juan duenas RN - Reason: Other - Comment: potassium wnl) 20 mEq Daily, Oral, First dose on Wed11/19/21 at 0900 rOPINIRole (REQUIP) tablet 2 mg 0626 (Given - Provider : Ashleigh Martini LPN)1730 (Given - Provider: Radha Rizzo RN) 0545 (Given - Provider: Ashleigh Martini LPN)1642 (Given - Provider: Juan Esposito RN)1830 (Canceled Entry - Provider: Juan Esposito RN) 0539 (Given - Provider: Ashleigh Martini LPN) 2 mg 2 times daily, Oral, First dose (af ter last modification) on Wed11/20/21 at 2100 senna (SENOKOT) 17.2 mg 2126 (Given - Provider: Ashleigh Martini LPN) 17.2 mg Nightly (2 tablet), Oral, First dose (after last modification) on Wed11/26/21 at 2100 senna (SENOKOT) 8.6 mg (CANCELED) 2101 (Given - Provid er: Ashleigh Martini LPN) 8.6 mg Nightly (1 tablet), Oral, First dose on Wed11/25/21 at 21 00 therapeutic multivitamin-minerals (THERAGRAN-M) tablet 1 tablet 0822 (Given - Provider: Radha Rizzo RN) 0916 (Given - Provider: Juan Esposito RN) 0920 (Given - Provider: Juan Esposito RN) 1 tablet Daily, Oral, First dose on Wed11/20/21 at 1445 venlafaxine (EFFEXOR-XR) 24 hr capsule 150 mg 0822 (Gi anthony - Provider: Radha Rizzo RN) 0916 (Given - Provider: Juan Esposito RN) 0920 (Give n - Provider: Juan Esposito RN) 150 mg Daily, Oral, First dose on Wed11/19/21 at 0900 PRN Medication Order 11/25/2021 11/26/2021 11/27/2021 acetaminophen (TYLENOL) suppository 650 mg(Linked Group 1) 650 mg Every 4 hours PRN, Rectal, Mild P ain, Fever, Starting on Wed11/18/21 at 2345 acetaminophen (TYLENOL) tablet 650 mg(Linked Group 1) 650 mg Every 4 hours PRN, Oral, Mild Sugey n, Fever, Starting on Wed11/18/21 at 2345 dextrose (D10W) 10% bolus 250 mL 250 mL, Intravenous, Administer over 15 Minutes, at 1,000 mL/hr, PRN, Other, Blood glucose <70 mg/dL or > 70 mg/dL with symptoms and cannot take oral hypoglycemia treatment., Starting on Wed11/18/21 at 2345 dextrose (D10W) 10% bolus 250 mL 250 mL, Intravenous, Administer over 15 Minutes, at 1,000 mL/hr, PRN, Other, If patient still hypoglycemic after initial D10 bolus, repeat D10 250 mL bolus and contact provider, Starting on Wed11/18/21 at 2345 diphenhydrAMINE (BENADRYL) capsule 50 mg 1225 (Given - Provider: Radha Rizzo RN)2115 (Given - Provider: Ashleigh Martini LPN) 213 (Given - Provider: Ashleigh Martini LPN) 1031 (Given - Provider: Juan Esposito RN) 50 mg Every 6 hours PRN, Oral, Itching, Starting on Wed11/24/21 at 1332 HYDROcodone-acetaminophen (NORCO) 10-325 MG per tablet 2 tablet 0023 (Given - Provider: Ashleigh Martini LPN)1225 (Given - Provider: Radha Rizzo RN)1726 (Given - Provider: Radha Rizzo RN)211 (Given - Provider: Ashleigh Martini LPN) 0547 (Given - Provider: Ashleigh argueta LPN)151 (Given - Provider: Juan Esposito, LEILA)2128 (Given - Provider: Ashleigh Martini LPN) 1031 (Given - Provider: Juan Esposito RN) 2 tablet Every 4 hours PRN, Oral, Modera te Pain, Starting on Wed11/24/21 at 1345 HYDROmorphone (DILAUDID) injection 0.5 mg 0104 (Given - Provider: Daniela Webber, RN) 0.5 mg Every 4 hours PRN, Intravenous, S evere pain unrelieved by oral as needed medications, Starting on Wed11/26/21 at 1211 HYDROmorphone (DILAUDID) injection 1 mg (CANCELED) 0959 (Given - Provider: Juan Esposito, LEILA) 1 mg Every 4 hours PRN, Intravenous, Sev ere pain unrelieved by oral as needed medications, Starting on Wed11/25/21 at 1214 HYDROmorphone (DILAUDID) injection 2 mg (CANCELED) 085 2 (Given - Provider: Radha Rizzo RN) 2 mg Every 4 hours PRN, Intravenous, Sev ere Pain, Severe pain unrelieved by oral as needed medications, for use with physical therapy, Starting on Wed11/24/21 at 1345 naloxone (NARCAN) 0.4 MG/ML injection 0.4 mg 0.4 mg PRN, Intravenous, Opioid Reversal, Starting on 11/21/ 2 at 0952 ondansetron (ZOFRAN) injection 4 mg 4 mg Every 8 hours PRN, Intravenous, Nausea, Starting on 10/31 at 2345 Linked Groups Order Group 1: acetaminophen (TYLENOL) tablet 650 mgJump to med 650 mg Every 4 hours PRN, Oral, Mild Sugey n, Fever, Starting on Wed11/18/21 at 2345 Or acetaminophen (TYLENOL) suppository 650 mgJump to med 650 mg Every 4 hours PRN, Rectal, Mild P ain, Fever, Starting on Wed11/18/21 at 2345 documented in this encounter Care Teams Research Spec Relationship Specialty Start Date End Date Anabelle Yost MD PCP - General Family Medicine 04/15/[address] [place] [address] [place] [id number] documented as of this encounter
--- OUTSIDE RECORDS SUMMARY | 2022-02-01 20:28 | XMS_ITS | Encounter Summary ---
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 encounter Plan of Treatment Upcoming Encounters Date Type Specialty Care Team Description 03/11/2022 Office Visit Orthopaedics Kasey Hassan MD [address] [facility] [place], [place] [address] (Wo rk) documented as of this encounter Results XR Hip WWO Pelvis [...] ATTENDING RADIOLOGIST: Malcom Munroe Blas Armendariz MD [facility] ORDER BABAK documented in this encounter Visit Diagnoses Diagnosis Closed dislocation of right hip, initial encounter (HCC) - Primary Closed dislocation of right hip, initial encounter (HCC) documented in this encounter Care Teams Blackjack Dealer Relationship Specialty Start Date End Date Anabelle Yost MD PCP - General Family Medicine 04/15/[address] [place] [address] [address] [place], [address] documented as of this encounter
--- OUTSIDE RECORDS SUMMARY | 2022-02-01 20:29 | XMS_ITS | Encounter Summary ---
:1955 Author Organization [facility] Address [address] [facility] [place] [address] Phone Care Team Providers Name Role Phone Anabelle Yost MD Primary Care Provider Reason for Visit Reason Comments Follow-up Encounter Details Date Type Department Care Team Description 03/06/2021 [facility]Up [facility] Kasey Hassan Histo ry of left hip replacement (Primary Dx); Orthopaedics Inflammatory breast cancer, unspecified laterality (HCC); [address] [facility] [address] Failure of right total hip arthroplasty, [place] [address] [place] [address] [phone] Social History Tobacco Use Types Packs/Day Years [...] at Date Recorded 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 Follow-up Referring Physician: Dr. Marr and Dr. Jordan Medical Oncologist: Dr. 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 2011: Bilateral mastectomies ?? [id number]: Several soft tissue procedures including resection of an 5th rib on the right and right chest wall secondary to osteomyelitis then treated by IV antibiotics with Merrem for 8 weeks and 1 year of p.o. suppressive therapy ?? Total of 18 surgeries for her breasts to include bilateral pectoral flaps ?? 06/14/2019: Right total hip arthroplasty by Dr. Jordan; implants: DP [place] acetabular shell size 54 with a 36 mm neutral liner, size 36+ 1.5 ceramic head and 6 high offset [place] stem ?? 08/22/2019: Revision right total hip arthroplasty secondary to fall with periprosthetic fracture on the femur; Dr. Jordan; TheraCoatuy reclaim stem 16 x 190 with a size 80 mm proximal body, 45 mm offset neck and a 1.5 ceramic head and 5 cables ?? 04/15/2020: Revision right total hip to constrained proximal femur replacement ([place]) Radiation Therapy: Chemotherapy: Completed and on surveillance therapy with tumor markers History of Present Illness: Sarah Doran is a 65 y.o. female with a past history as detailed above. She presents today for postoperative follow-up. She is approximately 6 weeks out from surgery. She is doing well and mobilizing with assistance of a walker. Her pain has been minimal. She denies any issues with her incision, ithas healed well. She was recently admitted to [facility] for fluid overload. She says she lost approximately 45 lbs via diuresis. Interval History 07/31/2020: She has been doing quite well. She has no pain to that right hip any more. She can walk ~150 feet without aid. She does report pain to other parts of her body which she takes diclofenac for and sometimes norco, but her right hip is pain free. She wishes to go to outpatient PT to increase her enduranceand wants to be able to drive for that. Interval History 03/06/21: She presents today for follow up. She reports doing fairly well. She recently had a right reverse total shoulder performed by Dr. Caal about 5 weeks ago. She is recovering from that. She has been ambulating well with no assistive device. She does report some pain to her right leg whenever she twistsa certain way. She is overall very pleased. She denies any fevers/chills. No issues with her incision. Sarah is in clinic today because of her left hip pain. Today she reports a pain severity of 1 and a usual severity of 1. The type of pain reported is aching and it lasts for a few days at a time. She reports that the pain is happening intermittently Pain is aggravated by bending, stretching and getting up from sitting. Treatments she has tried include: rest, ice and anti-inflammatories. She has had bloodwork and xrays done recently. Review of Systems: Review of Systems Constitutional: Positive for weight gain, night sweats, aching and stiffness. Respiratory: Positive for cough, shortness of breath, wheezing and sleep apnea. Cardiovascular: Positive for short of breath and high blood pressure. Gastrointestinal: Positive for diarrhea. Genitourinary: Positive for trouble stopping. Musculoskeletal: Positive for joint pain, joint swelling, joint replacement, joint instability, injury, muscle pain, osteoarthritis, obesity and frequent falls. Neurological: Positive for dizziness and poor balance. Endo/Heme: Positive for diabetes, edema and transfusion history. Psychiatric/Behavioral: Positive for depression and insomnia. Physical Exam: General Physical Exam: There were no vitals taken for this visit. General Appearance: Alert, cooperative, no distress, appears stated age Orthopaedic / Musculoskeletal Exam: Right Lower Extremity: Skin: Incision well-healed, No drainage or surrounding erythema Motor: 3/5 HF/HE, 4/5 KF/KE, 5/5 DF/PF/EHL/FHL Sensory: Sensation intact to light touch all dermatomes Vascular: 2+ DP/PT ROM: Hip: 15 degree IR, 20 degree ER Knee: 120 deg flexion, 0 deg extension Ankle: 15 deg dorsiflexion, 45 deg plantar flexion Imaging: Hardware in position with no signs of periprosthetic fracture, the constrained liner has disengaged and has migrated distally around the proximal aspect of the femoral prosthesis; Stem in valgus unchanged These images have been interpreted by me, Suraj Powell MD, independent of the radiologists interpretation as no radiology read was available at the time of documentation. Pathology: Final Diagnosis Date Value Ref Range Status 04/15/2020 Final A. HIP, RIGHT: - Synovium and dense fibrous tissue, negative for acute inflammation. B. HIP, RIGHT, # 2: - Synovium and dense fibrous tissue, negative for acute inflammation. C. FEMUR, RIGHT: - Segments of bone with foci of intramedullary fibrosis and reactive changes. - No acute osteomyelitis identified. I certify the accuracy of this report on the basis of my personal observations and interpretation. Microscopic examination performed on all specimens except gross only. Labs: No results found for any visits on 03/06/21. Assessment: ICD-10-CM 1. History of left hip replacement Z96.642 2. Inflammatory breast cancer, unspecified laterality (HCC) C50.919 3. Failure of right total hip arthroplasty, subsequent encounter T84.010D Plan: She is doing well post operatively. She has been ambulating with no issue. She wants to start working with her personal assistant again for exercise. Her incision looks good. Her constrained liner has disengaged and migrated down her femoral prosthesis. We discussed she has a higher chance of dislocation and patient is understanding. She does feel like her right leg is a little bit longer than her left. We will see if we can get her a shoe lift for her left foot. We will see her back in 1 year with repeat XR of right hip and femur. Weight bearing status: WBAT right lower extremity Pain medication: Requested Prescriptions No prescriptions requested or ordered in this encounter Consults: RTC: Patient instructed to return to clinic in 1 year with the following routine surveillance imaging required: X-rays right hip/femur She is satisfied with the current course as well as our current plan. All her questions were answered to her contentment. Keep the following scheduled appointments: Future Appointments Date Time Provider Department Center 03/11/2022 9:45 AM Kasey Hassan MD [facility] Suraj Powell MD ATTENDING ATTESTATION: I saw and evaluated the patient. I agree with the findings and plan as documented in the note. We have discussed her imaging today. Her prosthesis overall looks pretty good. The ring that fixate the locking mechanism for the constrained liner has loosened and is around the proximal prosthesis. She has not dislocated she does not feel unstable. Her greater troch is down in a reasonable position and has not moved I think that her soft tissues have all scarred in and she likely is going to be stable. We will just follow it. She has that a little higher than previous risk of dislo cation and she is fully aware. I told her while going to the gym and doing exercises she should remember her posterior hip precautions and maintain those. She has done really well and lost weight from 320 lb down to 280. She wants to continue working out. I think this is excellent idea. She will resume after she is released from restrictions of her right total shoulder. I would like to see her back in 1 year with new x-rays Barring no complications in the interim. Kasey Hassan DISCLAIMER: This note was prepared with voice recognition and crater and packer software, which may be prone to crater and packer errors US RECEPTIONIST documented in this encounter Plan of Treatment Upcoming Encounters Date Type Specialty Care Team Description 03/11/2022 Office Visit Orthopaedics Kasey Hassan MD [address] [place] [id number] (Wo rk) documented as of this encounter Visit Diagnoses Diagnosis History of left hip replacement - Primar y Inflammatory breast cancer, unspecified laterality (HCC) Failure of right total hip arthroplasty, subsequent encounter documented in this encounter Care Teams Funnel Coater Relationship Specialty Start Date End Date Anabelle Yost MD PCP - General Family Medicine 04/15/[address] [place] [id number] documented as of this encounter
--- OUTSIDE RECORDS SUMMARY | 2022-02-01 20:29 | XMS_ITS | Encounter Summary ---
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 Medications at Time of Discharge Medication Sig Dispensed Refills Start Date End Date amoxicillin (AMOXIL) 500 Take Amoxicillin 1gm 4 capsule 0 0 05/29/2020 mg capsule 30 minutes prior to dental procedure Indications: Infection of the Skin and/or Soft Tissue Ascorbic Acid (VITAMIN Take 1,000 mg by 0 C) 1000 MG tablet mouth daily AZO-CRANBERRY PO Take by mouth 0 benzonatate (TESSALON) Take 200 mg by mouth 0 100 mg capsule 3 times daily as needed Biotin 72591 MCG TABS Take 25,000 mcg by 0 mouth Calcium Take 1 tablet by 0 Carb-Cholecalciferol mouth 2 times daily (CALCIUM-VITAMIN D) with meals 500-200 MG-UNIT per tablet clonazePAM (KLONOPIN) Take 0.5 mg by mouth 0 0.5 mg tablet 2 times daily colesevelam (WELCHOL) Take 1,250 mg by 0 625 MG tablet mouth 2 times daily with meals cyclobenzaprine Take 10 mg by mouth 0 (FLEXERIL) 10 mg tablet 3 times daily as needed for Muscle spasms dicyclomine (BENTYL) 10 Take 10 mg by mouth 0 mg capsule 4 times daily before meals and nightly ELDERBERRY PO Take 100 mg by mouth 0 ferrous sulfate 325 (65 Take 325 mg [...] 0 (MULTI-VITAMIN DAILY) TABS ondansetron (ZOFRAN) 4 Take 4 mg by mouth 0 mg tablet every 8 hours as needed for Nausea potassium chloride SA Take 20 mEq by mouth 0 05/04 (K-DUR,KLOR-CON) 20 mEq daily as needed tablet promethazine (PHENERGAN) Take 12.5 mg by 0 12.5 MG tablet mouth every 6 hours as needed for Nausea rOPINIRole (REQUIP) 2 MG Take 2 mg by mouth 0 tablet nightly telmisartan-hydrochlorot Take 1 tablet by 0 07/21 hiazide (MICARDIS HCT) mouth daily 80-25 MG per tablet temazepam (RESTORIL) 30 Take 30 mg by mouth 0 MG capsule nightly as needed for Sleep venlafaxine (EFFEXOR-XR) Take 150 mg by mouth 0 150 mg 24 hr capsule daily gabapentin (NEURONTIN) Take 1 capsule by 90 capsule 6 201904/10/2021 300 mg capsule mouth 3 times daily oxycodone-acetaminophen Take 1 tablet by 45 tablet 0 202005/29/2021 (PERCOCET) 10-325 MG per mouth every 6 hours tablet as needed Max Daily Amount: 4 tablets rOPINIRole (REQUIP) 2 MG Take 1 tablet by 0 04/1804/18/2021 tablet mouth daily as needed (restless legs) HYDROcodone-acetaminophe Take 1-2 tablets by 0 11/27/2021 n (NORCO) 10-325 MG per mouth every 6 hours tablet as needed HYDROcodone-acetaminophe Take 1-2 tablets by 0 11/27/2021 n (NORCO) 5-325 MG per mouth every 4 hours tablet as needed mirtazapine (REMERON) 15 Take 15 mg by mouth 0 11/27/2021 mg tablet nightly nebivolol (BYSTOLIC) 5 Take 5 mg by mouth 0 11/27/2021 MG tablet daily Probiotic Product Take by mouth 0 11/01 (PROBIOTIC-10 ULTIMATE) CAPS telmisartan (MICARDIS) Take 80 mg by mouth 0 11/27/2021 80 MG tablet daily documented as of this encounter Plan of Treatment Upcoming Encounters Date Type Specialty Care Team Description 03/11/2022 Office Visit Orthopaedics Kasey Hassan MD [address] [facility], [place] [address] (Wo rk) documented as of this encounter Procedures Procedure Name Priority Date/Time Associated Diagnosis Comme nts XR HIP WWO PELVIS Routine 07/31/2020 8:41 AM S/P revision of R esults for this RIGHT 2 OR 3 VIEWS CDT total hip procedure are in the results section. documented in this encounter Results XR Hip WWO Pelvis Right 2 or 3 Views (07/31/2020 8:41 AM CDT) Anatomical Region Laterality Modality Hip, Pelvis Digital Radiography Specimen (Source) Anatomical Collection Method Collection Time Re ceived Time Location / / Volume Laterality 07/31/2020 9:03 AM CDT Impressions 07/31/2020 9:06 AM CDT IMPRESSION: ?? 1. ??Postoperative changes of right hip arthroplasty without interval hardware complication identified. 2. ??Nonspecific soft tissue swelling th roughout the right hip and included thigh. 3. ??Other findings as detailed above. Attending Name:Pablo Decker 07/31/2020 9:06 AM CDT RADIOLOGICAL EXAM: ??XR HIP WWO PELVIS RIGHT 2 OR 3 VIEWS DATE AND TIME OF EXAM: ??07/31/2020 8:36 AM Clinical History: Z96.649 - Presence of unspecified artificial hip joint TECHNIQUE:XR HIP WWO PELVIS RIGHT 2 OR 3 VIEWS COMPARISON: Right femur series dated 05/04 and right hip series dated 04/15/2020 FINDINGS: The superior pelvis is not fully include d on the study. Postsurgical changes of right hip arthroplasty with longstem femoral component. No interval hardware complication is appreciated. Some appearance of the osseous density lateral to the pr oximal right femur which may reflect heterotopic ossification or greater trochanteric fragment. Mild osteoarthritis of the left hip and mild degenerative changes at the pubic symphysis. There is soft ti ssue swelling throughout the included right hip. Remainder of the exam is not significantly changed. Procedure Note Sabino Negreet MD - 07/31/2020Form atting of this note might be different from the original. RADIOLOGICAL EXAM: XR HIP WWO PELVIS RIG HT 2 OR 3 VIEWS DATE AND TIME OF EXAM: 07/31/2020 8:36 AM Clinical History: Z96.649 - Presence of unspecified artificial hip joint TECHNIQUE:XR HIP WWO PELVIS RIGHT 2 OR 3 VIEWS COMPARISON: Right femur series dated 05/04 and right hip series dated 04/15/2020 FINDINGS: The superior pelvis is not fully include d on the study. Postsurgical changes of right hip arthroplasty with longstem femoral component. No interval hardware complication is appreciated. Some appearance of the osseous density lateral to the proximal right femur which may reflect heterotopic ossification or greater trochanteric fragment. Mild osteoarthritis of the left hip and mild degenerative changes at the pubic symphysis. There is soft tissue swelling throughout the included right hip. Remainder of the exam is not significantly changed. IMPRESSION: 1. Postoperative changes of right hip ar throplasty without interval hardware complication identified. 2. Nonspecific soft tissue swelling thro ughout the right hip and included thigh. 3. Other findings as detailed above. Attending Name:Vern Negrete D.O. Kasey Hassan MD IMG DIAGNOSTIC IMAGING ORDER BABAK documented in this encounter Visit Diagnoses Diagnosis S/P revision of total hip Hip joint replacement by other means documented in this encounter Care Teams Assembly Person Relationship Specialty Start Date End Date Anabelle Yost MD PCP - General Family Medicine 04/15/[address] [place] [address] [address] [facility] [place], [id number] documented as of this encounter
--- OUTSIDE RECORDS SUMMARY | 2022-02-01 20:29 | XMS_ITS | Encounter Summary ---
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 documented as of this encounter Plan of Treatment Upcoming Encounters Date Type Specialty Care Team Description 03/11/2022 Office Visit Orthopaedics Kasey Hassan MD [address] [facility], [place] [address] (Wo rk) documented as of this encounter Visit Diagnoses Not on filedocumented in this encounter Care Teams Political Cartoonist Relationship Specialty Start Date End Date Anabelle Yost MD PCP - General Family Medicine 04/15/[address] [place] [address] [address] [place], [id number] documented as of this encounter
--- OUTSIDE RECORDS SUMMARY | 2022-02-01 20:29 | XMS_ITS | Encounter Summary ---
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 documented as of this encounter Last Filed Vital Signs Vital Sign Reading Time Taken Comments Blood Pressure 102/59 05/01/2020 9:36 AM ELECTRICIAN CRANE MAINTENANCE Pulse 82 05/01/2020 9:36 AM ELECTRICIAN CRANE MAINTENANCE Temperature 36.4 ??C (97.6 ??F) 05/01/2020 9:36 AM ELECTRICIAN CRANE MAINTENANCE Respiratory Rate 20 05/01/2020 9:36 AM ELECTRICIAN CRANE MAINTENANCE Oxygen Saturation 99% 05/01/2020 9:36 AM ELECTRICIAN CRANE MAINTENANCE Inhaled Oxygen Concentration - - Weight 141.5 kg (312 lb) 05/01/2020 9:36 AM ELECTRICIAN CRANE MAINTENANCE Height 175.3 cm (5' 9) 05/01/2020 9:36 AM ELECTRICIAN CRANE MAINTENANCE Body Mass Index 46.07 05/01/2020 9:36 AM ELECTRICIAN CRANE MAINTENANCE documented in this encounter Patient Instructions Patient InstructionsEva Barber - 05/01/2020 9:45 AM CST Range of motion/Weight-bearing Restrictions: WBAT??right lower??extremity, posterior hip precautions?Activity:??WBAT??right lower??extremity, posterior hip precautions?Wound Care: RAGINI drain removed due to tubing compromise, Lea remain. Please clean incision area with betadine daily, let betadine dry, and cover with clean dry gauze. CONTINUE ORAL ANTIBIOTICS KEEP INCISIONS CLEAN AND DRY Return precautions: Patient was instructed to return to the Emergency Room should the following symptoms occur: fever > 101.5 F, chills, shortness of breath, chest pain, pain out of proportion, excessive or purulent wound drainage, foul odor from incision, new onset numbness/tingling or weakness to extremities, and any other concerns. TRICIAN CRANE MAINTENANCE documented in this encounter Progress Notes Ofelia River NP - 05/01/2020 9:45 AM CST PROCEDURES: Past Surgical History: Procedure Laterality Date ??? ACHILLES TENDON REPAIR ??? BRACHIOPLASTY with liposuction ??? BREAST RECONSTRUCTION ??? CATARACT EXTRACTION, BILATERAL ??? CHOLECYSTECTOMY ??? FACELIFT multiple ??? HYSTERECTOMY 1998 ??? INSERTION CEMENT RIGHT HIP Right 04/15/2020 Performed by Kasey Hassan MD at ADULT OR ??? MASTECTOMY ??? ORIF ANKLE DISLOCATION Right ??? PORT PLACEMENT ??? PORT REMOVAL ??? REVISE TOTAL HIP TO PROXIMAL FEMUR REPLACEMENT/TOTAL ONCOLOGIC HIP REPLACEMENT Right 04/15/2020 Performed by Kasey Hassan MD at ADULT OR HPI: Sarah Doran is a 65 y.o. y.o. female who is here for postop visit. She is s/p revision right SAMIR to proximal femur replacement by Dr. Hassan on 04/15/20. Severity of pain is described as mild and moderate. It is alleviated with rest and medications and exacerbated with increased activity. Woundvac and Two RAGINI drains noted. No output in wound vac. RAGINI drain #1 last output was 40 ml on 02/22/20. RAGINI drain #2 last output was 160 ml on 02/22/20. INTERVAL HISTORY 05/01/2020 Here for another wound check and to evaluate drain output. States she had issues with both of her drains on 2020. States she called and spoke to someone here, a resident, and facility was instructed to remove drain. Call to facility to clarify what happened. Spoke to the nurse at [facility] at facility and had reports that 1st drain came out on its own and it is unknown how the other drain was torn. Staff did place tegaderm to drain 2 and suctions was maintained. She has continued to have a good bit of bloody drainage has over 110cc today, 280cc yesterday and 325x3d ago. Severity of pain is described as mild and moderate. It is alleviated with rest and medications and exacerbated with inc reased activity. Denies fever, chills, body aches, nausea, vomiting or diarrhea. PE: Musculoskeletal- Incision- healing well, no significant drainage, no dehiscence, no significant erythema. Swelling mild and moderate. Muscle Tone: Normal, without spasm. Pulses: PT: 2 and DP: 2. Sensation Intact to light touch in all dermatomes. Joint-right hip diminished range of motion. BP 102/59 Pulse 82 Temp 97.6 ??F (36.4 ??C) (Temporal) Resp 20 Ht 1.753 m (5' 9) Wt (!) 141.5 kg (312 lb) SpO2 99% BMI 46.07 kg/m?? IMAGING: None today ASSESSMENT: Routine postoperative follow-up after above noted orthopaedic procedures. Remaining drain should be dc'd due to compromise. Consulted with Dr Hassan regarding situation. Will DC drain and will continue to monitor. She will return to clinic in 5-6 days with Ahsan Monte NP for another wound check and possible staple removal. She will continue Keflex. DVT prophylaxis: enoxaparin 40mg PLAN: 1. Pain control on Opioids . Pain medication was not refilled. Risks of medications were discussed. 2. PT/OT-outpatient Ordered . 3. Follow-up in:5-6 days with [facility] 4. do not obtain Xrays at next visit 5. Immobilization / braces: Walker Rolling Walker 6. WB status: Weight bear as tolerated right lower extremity, 90 degree posterior hip precautions 7. lea: intact and RAGINI drain DC'd 8. Instructions to facility to continue to monitor 9. Keep pressure dressing in place to drain site 10. Instructions to facility scanned into media Return precautions: Patient was instructed to return to the Emergency Room should the following symptoms occur: fever > 101.5 F, chills, shortness of breath, chest pain, pain out of proportion, excessive or purulent wound drainage, foul odor from incision, new onset numbness/tingling or weakness to extremities, and any other concerns. Ofelia River NP TRICIAN CRANE MAINTENANCE documented in this encounter Plan of Treatment Upcoming Encounters Date Type Specialty Care Team Description 03/11/2022 Office Visit Orthopaedics Kasey Hassan MD [address] [facility], [place] [address] (Wo rk) documented as of this encounter Visit Diagnoses Diagnosis Postop check - Primary Follow-up examination, following unspeci fied surgery documented in this encounter Care Teams Client Services Assistant Relationship Specialty Start Date End Date Anabelle Yost MD PCP - General Family Medicine 04/15/20 [address] [facility] [address] [place], [id number] documented as of this encounter
--- OUTSIDE RECORDS SUMMARY | 2022-02-01 20:29 | XMS_ITS | Encounter Summary ---
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 1 week Comments BILATERAL LOWER EXTREMITY STRENGTHENING, CONDITIONING, ROM, GAIT TRAINING, MODALITIES TOTAL ONCOLOGIC HIP REPLACEMENT 04-15-20 Reason for Visit Reason Comments Hip Pain XR RIGHT HIP...2 months f/u Encounter Details Date Type Department Care Team Description 07/31/2020 [facility] Kasey Hassan, Perip rosthetic fracture of proximal end of femur (Primary Dx); Orthopaedics History of left hip replacement; [address] [facility] [address] Failure of right total hip arthroplasty, subsequent encounter [place] [address] [place] [address] [phone] Social History Tobacco Use Types Packs/Day Years [...] at Date Recorded 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 Today she reports a pain severity of 2 and ausual severity of 1. The type of pain reported is sharp and it lasts for a few hours at a time. She reports that the pain is happening several times daily Pain is aggravated by bending and exercise. Treatments she has tried include: rest. Currently, she is using a cane, a walker and a wheelchair to assist in ambulation. She has had xrays done recently. Review of Systems: Review of Systems Constitutional: Positive for aching and stiffness. HENT: Negative. Eyes: Positive for cataracts. Respiratory: Positive for cough and shortness of breath. Cardiovascular: Positive for high blood pressure. Gastrointestinal: Negative. Genitourinary: Positive for frequent urination and trouble stopping. Musculoskeletal: Positive for joint pain, joint replacement, osteoarthritis and obesity. Skin: Negative. Neurological: Positive for dizziness. Endo/Heme: Positive for diabetes. Psychiatric/Behavioral: Positive for depression and insomnia. This note is written by Juani Nguyen LPN, acting as a scribe for Dr. Kasey Hassan. Associated attestation - Kasey Hassan MD - 07/31/2020 9:59 AM CDT ATTENDING ATTESTATION: This HPI and ROS was taken by Juani Nguyen LPN in my presence acting as my scribe. These notes accurately reflect my work and decisions Kasey Hassan M.D. Rush Solis MD - 07/31/2020 8:30 AM CDT ORTHOPAEDIC ONCOLOGY CLINIC NOTE Kasey Hassan MD Chief Complaint: Chief Complaint Patient presents with ??? Hip Pain XR RIGHT HIP...2 months f/u Referring Physician: Dr. Marr and Dr. Jordan Medical Oncologist: Dr. 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 2011: Bilateral mastectomies ?? [id number]: Several soft tissue procedures including resection of an 5th rib on the right and right chest wall secondary to osteomyelitis then treated by IV antibiotics with Merrem for 8 weeks and 1 year of p.o. suppressive therapy ?? Total of 18 surgeries for her breasts to include bilateral pectoral flaps ?? 06/14/2019: Right total hip arthroplasty by Dr. Jordan; implants: DP [place] acetabular shell size 54 with a 36 mm neutral liner, size 36+ 1.5 ceramic head and 6 high offset [place] stem ?? 08/22/2019: Revision right total hip arthroplasty secondary to fall with periprosthetic fracture on the femur; Dr. Jordan; DePuy reclaim stem 16 x 190 with a size 80 mm proximal body, 45 mm offset neck and a 1.5 ceramic head and 5 cables ?? 04/15/2020: Revision right total hip to constrained proximal femur replacement (Hassan) Radiation Therapy: Chemotherapy: Completed and on surveillance [...] healed well. She was recently admitted to [facility] for fluid overload. She says she lost [...] to be able to drive for that. Ortho HPI Parts of the HPI notes are written by Juani Nguyen LPN, acting as a scribe for Dr. Kasey Hassan. Review of Systems: Ortho Review of Systems Please see the Orthopedic Oncology nursing assessment notes with a complete review of systems. This is taken and written by Juani Nguyen LPN, acting as a scribe for Dr. Kasey Hassan. Physical Exam: General Physical Exam: BP 123/75 Pulse 89 Temp 98.1 ??F (36.7 ??C) (Temporal) Resp 20 Ht 1.727 m (5' 8) BMI 47.44 kg/m?? General Appearance: Alert, cooperative, no distress, appears stated age Orthopaedic / Musculoskeletal Exam: Right Lower Extremity: Skin: Incision well-healed, No drainage or surrounding erythema Motor: 3/5 HF/HE, 4/5 KF/KE, 5/5 DF/PF/EHL/FHL Sensory: Sensation intact to light touch all dermatomes Vascular: 2+ DP/PT ROM: Hip: Did not range today Knee: 120 deg flexion, 0 deg extension Ankle: 15 deg dorsiflexion, 45 deg plantar flexion Imaging: Hardware in appropriate position with no signs of loosening or periprosthetic fracture; unchanged since last exam. Stem in valgus unchanged These images have been interpreted by me, Rush Solis MD, independent of the radiologistsinterpretation as no radiology read was available at [...] No results found for any visits on 07/31/20. Assessment: ICD-10-CM 1. Periprosthetic fracture of proximal end of femur M97.8XXA Z96.649 2. History of left hip replacement Z96.642 3. Failure of right total hip arthroplasty, subsequent encounter T84.010D Plan: She is doing well and as expected postop. She wants to be released to drive and start outpatient PT for endurance which is reasonable. She also wants her oral diclofenac refilled. We will do both of these and see her back in 3 months Weight bearing status: WBAT right lower extremity Pain medication: Requested Prescriptions No prescriptions requested or ordered in this encounter Consults: RTC: Patient instructed to return to clinic in 6 months with the following routine surveillance imaging required: X-rays right hip/femur She is satisfied with the current course as well as our current plan. All her questions were answered to her contentment. Keep the following scheduled appointments: Future Appointments Date Time Provider Department Center 01/30/2021 11:00 AM Kasey Hassan MD [facility] Rush Solis MD ATTENDING ATTESTATION: I saw and evaluated the patient. We will refill her voltaren and give abx fordental work. Outpatient PT. See me in 6 months for surveillance of her implant. She may progress anddrive. Kasey Hassan DISCLAIMER: This note was prepared with voice recognition and woodworker helper software, which may be prone to woodworker helper errors documented in this encounter Plan of Treatment Upcoming Encounters Date Type Specialty Care Team Description 03/11/2022 Office Visit Orthopaedics Kasey Hassan MD [address] [facility], [address] (Wo rk) Scheduled Referrals Name Type Priority Associated Diagnoses Order S [facility] Ambulatory Referral Outpatient Referral Routine Periprosthetic Ordered: to Adult Physical fracture of proximal Therapy end of femur History of left hip replacement Failure of right total hip arthroplasty, subsequent encounter documented as of this encounter Visit Diagnoses Diagnosis Periprosthetic fracture of proximal end of femur - Primary History of left hip replacement Failure of right total hip arthroplasty, subsequent encounter documented in this encounter Care Teams Etl Developer Relationship Specialty Start Date End Date Anabelle Yost MD PCP - General Family Medicine 04/15/[address] [place] [address] [place] [address] documented as of this encounter
--- OUTSIDE RECORDS SUMMARY | 2022-02-01 20:29 | XMS_ITS | Encounter Summary ---
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 Medications [...] capsule 3 times daily as needed Biotin 94679 MCG TABS Take 25,000 mcg by 0 [...] times daily before meals and nightly diphenhydrAMINE Take 50 mg by mouth 0 12/10/2020 (SOMINEX) 25 MG tablet ELDERBERRY PO Take 100 mg by mouth [...] 0 150 mg 24 hr capsule daily diclofenac (VOLTAREN) 75 Take 1 tablet by 60 tablet 2 07/3107/31/2021 mg EC tablet mouth 2 times daily gabapentin (NEURONTIN) Take 1 capsule by 90 capsule 6 201904/10/2021 300 mg capsule mouth 3 times daily oxycodone-acetaminophen Take 1 tablet by 45 tablet 0 202005/29/2021 (PERCOCET) 10-325 MG per mouth every 6 hours tablet as needed Max Daily Amount: 4 tablets rOPINIRole (REQUIP) 2 MG Take 1 tablet by 0 04/1804/18/2021 tablet mouth daily as needed (restless legs) amoxicillin (AMOXIL) 500 TAKE AMOXICILLIN 2GM 4 capsule 1 0 07/31/2020 11/27/2021 mg capsule 1HR PRIOR TO DENTAL PROCEDURE Indications: Infection of the Skin and/or Soft Tissue Biotin 1 MG CAPS 0 11/28/19 22 Elderberry 575 MG/5ML as directed 0 SYRP Fluticasone with meals and 0 Furoate-Vilanterol (BREO snacks ELLIPTA) 100-25 MCG/INH AEPB HYDROcodone-acetaminophe Take 1-2 tablets by 0 11/27/2021 [...] Visit Orthopaedics Kasey Hassan MD [address] [facility], [address] (Wo rk) documented as of this encounter Procedures Procedure Name Priority Date/Time Associated Diagnosis Comme nts XR HIP WWO PELVIS Routine 03/06/2021 10:24 AM S/P revision of Results for this RIGHT 2 OR 3 VIEWS CDT total hip procedure are in the results section. documented in this encounter Results XR Hip WWO Pelvis Right 2 or 3 Views (03/06/2021 10:24 AM CDT) Anatomical Region Laterality Modality Hip, Pelvis Digital Radiography Specimen (Source) Anatomical Collection Method Collection Time Re ceived Time Location / / Volume Laterality 03/06/2021 10:32 AM CDT Impressions 03/06/2021 10:34 AM CDT IMPRESSION: Prior resection of the right proximal fe mur with right proximal femur prosthesis and right hip arthroplasty. No radiographic complication. ATTENDING RADIOLOGIST: Malcom Munroe Narrative 03/06/2021 10:34 AM CDT RADIOLOGIC EXAM: XR FEMUR RIGHT MIN 2 VIEWS, XR HIP WWO PELVIS RIGHT 2 OR 3 VIEWS DATE AND TIME OF EXAMINATION: 03/06/2021 10:14 AM CLINICAL HISTORY: Z96.649 - Presence of unspecified artificial hip joint ?? COMPARISON: 05/29/2020 TECHNIQUE:XR FEMUR RIGHT MIN 2 VIEWS, XR HIP WWO PELVIS RIGHT 2 OR 3 VIEWS FINDINGS: Prior resection of the right proximal fe mur with right proximal femur prosthesis and right hip arthroplasty. No radiographic complication. No new abnormality. Tricompartmental osteoarthritis of knee, unchanged. Procedure Note Pedro Mckeon MD - 03/06/2021F ormatting of this note might be different from the original. RADIOLOGIC EXAM: XR FEMUR RIGHT MIN 2 EWS, XR HIP WWO PELVIS RIGHT 2 OR 3 VIEWS DATE AND TIME OF EXAMINATION: 03/06/2021 10:14 AM CLINICAL HISTORY: Z96.649 - Presence of unspecified artificial hip joint COMPARISON: 05/29/2020 TECHNIQUE:XR FEMUR RIGHT MIN 2 VIEWS, XR HIP WWO PELVIS RIGHT 2 OR 3 VIEWS FINDINGS: Prior resection of the right proximal fe mur with right proximal femur prosthesis and right hip arthroplasty. No radiographic complication. No new abnormality. Tricompartmental osteoarthritis of knee, unchanged. IMPRESSION: Prior resection of the right proximal fe mur with right proximal femur prosthesis and right hip arthroplasty. No radiographic complication. ATTENDING RADIOLOGIST: Malcom Munroe Kasey Hassan MD IMG DIAGNOSTIC IMAGING ORDER BABAK documented in this encounter Visit Diagnoses Diagnosis S/P revision of total hip Hip joint replacement by other means documented in this encounter Care Teams All Around Presser Relationship Specialty Start Date End Date Anabelle Yost MD PCP - General Family Medicine 04/15/[address] [place] [address], [place] [address] documented as of this encounter
--- OUTSIDE RECORDS SUMMARY | 2022-02-01 20:29 | XMS_ITS | Encounter Summary ---
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 Plan of Treatment Upcoming Encounters Date Type Specialty Care Team Description 03/11/2022 Office Visit Orthopaedics Kasey Hassan MD [address] [facility] [place], [place] [address] (Wo rk) documented as of [...] ATTENDING RADIOLOGIST: Malcom Munroe Kasey Hassan MD [facility] DIAGNOSTIC IMAGING ORDER BABAK XR Femur Right Min 2 Views (03/06/2021 10:23 AM CDT) Anatomical Region Laterality Modality Thigh Digital Radiography Specimen (Source) Anatomical Collection Method Collection Time Re ceived Time Location / / Volume Laterality 03/06/2021 10:32 AM CDT Impressions 03/06/2021 10:34 AM CDT IMPRESSION: Prior resection of the right proximal fe mur with right proximal femur prosthesis and right hip arthroplasty. No radiographic complication. ATTENDING RADIOLOGIST: Malcom Munroe. Narrative 03/06/2021 10:34 AM CDT RADIOLOGIC EXAM: [...] Primary Hip joint replacement by other means S/P revision of total hip Hip joint replacement by other means S/P revision of total hip Hip joint replacement by other means documented in this encounter Care Teams Public Housing Manager Relationship Specialty Start Date End Date Anabelle Yost MD PCP - General Family Medicine 04/15/[address] [place] [address] [place] [id number] documented as of this encounter
--- OUTSIDE RECORDS SUMMARY | 2022-02-01 20:29 | XMS_ITS | Encounter Summary ---
:1955 Author Organization [facility] Address [address] [place] [address] Phone Care Team Providers Name Role Phone Anabelle Yost MD Primary Care Provider Reason for Visit Reason Comments Hip Pain Hip pain today. Hx of of hip replacement with multiple dislocations Auth/Cert Specialty Diagnoses / Procedures Referred By Contact Refer red To Contact Diagnoses Right hip subluxation, sequela Referral ID Status Reason Start Date Expiration Date Visits Requ ested Visits Authorized [id number] 1 1 Encounter Details Date Type Department Care Team Description 11/20/2021 Surgery ADULT OR Blas Armendariz MD REVISE TOTAL HIP [address] [facility] [address] [place] [address] [place] [address] [phone] (Wo rk) Surgery Details Date/Time Status Location OR Service Patient Case Class Case Tr auma Class Type Case? 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 RIGHT KNEE: No acute fracture [...] prosthesisis in expected position relative to the [place] distal femur. RIGHT KNEE: No acute fracture [...] prosthesisis in expected position relative to the [place] distal femur. RIGHT KNEE: No acute fracture [...] Intake/Output Summary (Last 24 hours) at 11/27/2021 1235 Last data filed at 11/26/2021 2018 Gross [...] CL 97* 103 101 103 101 CO2 29 BUN 9.9 11.8 10.1 11.9 10.4 [...] mouth 3 times daily as needed Biotin 75977 MCG TABS Take 25,000 mcg by mouth [...] 1: Joint Replacement Program Cell: Claudine - [phone] (7:00am-3:30pm) Option 2: Lisa - [phone]; Option #8 (8:00am-4:30pm) Appointments: [phone] Medication Refills: [phone]; Option #8 (*Refills are not handled after hours or on weekends andare not considered an emergency) After 4:30pm or On Weekends: To reach the doctor worker's compensation claims examiner or for urgent matters after 5:00pm call: [phone], press 0, and ask for the orthopedic physician worker's compensation claims examiner. An orthopedic resident is worker's compensation claims examiner for our [facility] emergency room 7 days a week, 24 hours a day. If you have an orthopedic emergency after office hours, you should report to the nearest emergency room! For general questions regarding the Joint Replacement Program or if you need any assistance aftersurgery PLEASE contact the senior programmer: Claudine Barros: office [phone], cell [phone] (call or text) Wednesday- Wednesday 7:30am until [...] should have an appointment with an Urology SOLE CONDITIONER in 7 days after your discharge in [...] medication as prescribed. -If you are taking [place] or Percocet, these narcotics also contain Tylenol [...] see us back in clinic at the [facility] about 2 weeks from your surgery. -If [...] surgery ([id number] -If you are already on blood thinning [...] record. Home Discharge Plan of Care: Another institution-swing bed/hospital Vaccinations: No vaccinations administered during this [...] of hip joint prosthesis, initial encounter (HCC) If your condition should worsen after returning [...] 1 week. The clinic phone number is [phone]. Please call at your earliest convenience to schedule an appointment. Follow-up with ortho in 1 week. Five Discharge diet: diabetic diet Activity restrictions after discharge: activity as tolerated A summary of this hospitalization will be sent electronically to your usual doctor if he or she is able to be located in our system. [facility] works hard to provide quality [...] capsule 3 times daily as needed Biotin 74288 MCG TABS Take 25,000 mcg by 0 [...] 1:33 PM CDT Patient is discharging to [facility]. Per referral, appointment scheduled as below. Future Appointments Date Time Provider Department Center 12/04/2021 8:00 AM FENG Barba [facility] 03/11/2022 9:45 AM Kasey Hassan MD [facility] Reji Novak - 11/27/2021 11:27 AM CDT Archival Records Clerk received spiritual services consult regarding pt request for tool setter visit. Archival Records Clerk will visit with pt this afternoon. Olive [...] Treatment Interventions Functional Mobility;Gait Training;Discharge Needs;Patient/Caregiver Education Kasey Randall OTR/Armando - 11/26/2021 10:05 AM CDT 11/26/21 1005 [...] Bazan MD - 11/26/2021 9:40 AM CDT [facility] Medicine Progress Note Date: 11/26/21 Subjective: [...] sequela Dislocation of hip prosthesis (HCC) PLAN [place] and dilaudid IV push prn. DM - [...] Bazan MD - 11/25/2021 9:42 AM CDT [facility] Medicine Progress Note Date: 11/25/21 Subjective: [...] sequela Dislocation of hip prosthesis (HCC) PLAN [place] and dilaudid IV push prn. DM - [...] and placement. Signed: Deisy Bazan MD Olive Barrera, PT, DPT - 11/25/2021 8:56 AM CDT 11/25/21 0856 Session Information PT Received On 11/25/21 Number of Treatments Today 1 Number of Treatments this Week 2 Visit 1: Start Time 0856 Visit 1: Stop Time 0945 Visit 1: Time Calculation (min) 49 min [...] Treatment Interventions Functional Mobility;Gait Training;Therapeutic Exercise;Discharge Needs CARIN Weiss/Armando - 11/25/2021 8:55 AM CDT 11/25/21 08 [...] (mL) 11/23/21 0701 - 11/23/21 1900 11/23/21 190 - 11/24/21 0700 11/24/21 0701 - 11/24/21 [...] follow up in 1 week with Ortho SOLE CONDITIONER for wound check and Ortho surgeon in 6 weeks at [facility]. Jillian Tesfaye PT - [...] notified of disposition Session Information Comment Pt's [id number] present in room throughout session. Precautions Weight [...] Exercise;Therapeutic Activities;Strengthening;Patient/Caregiver Education;Balance Training;Discharge Needs;Home Exercise Program CARIN Weiss/Armando - 11/24/2021 11:06 AM CDT 11/24/21 1106 [...] Bazan MD - 11/24/2021 9:26 AM CDT Hospital Medicine Progress Note Date: 11/24/21 Subjective: [...] of hip prosthesis (HCC) PLAN Diontinue dilaudid FISHER SPEAR today w/ plan to transition to oral [...] Pino MD - 11/23/2021 7:44 AM CDT [facility] Medicine Progress Note Date: 11/23/21 Subjective: [...] of hip prosthesis (HCC) PLAN Diontinue dilaudid FISHER SPEAR today w/ plan to transition to oral [...] follow orthopedics recommendations Signed: Misbah Pino MD Electrical Design Technician of Internal Medicine & Pediatrics Please contact via secure chat Misbah Pino MD - 11/22/2021 7:43 AM CDT [facility] Medicine Progress Note Date: 11/22/21 Subjective: Brief History:66 F admitted w/ spontaneous dislocation of R prosthetic hip, POD 2 from reduction/revision. Interval History: Pain is improving but unresolved while on FISHER SPEAR. We discussed the possibility of leaving on [...] of hip prosthesis (HCC) PLAN Continue dilaudid FISHER SPEAR today w/ plan to transition to oral [...] follow orthopedics recommendations Signed: Misbah Pino MD Electrical Design Technician of Internal Medicine & Pediatrics Please contact [...] - No drainage - SILT SP/DP/T - 08/05 EHL/FHL 08/05 GS/TA - +2 DP/PT, BCR <2s to exposed digits Recent Labs 11/20/21 0619 11/20/21 17111/21/21 0547 HGB 12.3 11.6* 10.3* HCT 39.2 37.8 32.8* Recent Labs 11/20/21 0611/20/21 17111/21/21 0547 CREATININE 0.85 0.81 0.81 BUN 21.1 16.3 12.4 NA 138 138 137 K 4.3 4.2 4.3 CL 99 100 100 CO2 27 25 27 Output by Drain (mL) 11/20/21 0701 - 11/20/21 1900 11/20/21 1901 - 11/21/21 0700 11/21/21 0701 - 11/21/21 [...] Kasey Chase - 11/21/2021 12:[address] [facility] Daily Progress Note Patient Name: Bogdan [...] holding DVT ppx - will transition to FISHER SPEAR today for better pain control; will likely [...] vac in place. Giving 24 hours on FISHER SPEAR dilaudid to get pain better controlled then [...] chronicity as she is followed by outside electrical fitter (Dr. Bertram Alcala). Continue home medications for other chronic medical conditions and nightly CPAP for LOLY. MD Magnolia Simon, DPT - 11/21/2021 9:51 AM CDT 11/21/21 0951 Session Information PT Received On 11/21/21 Number of Treatments Today 1 Number of Treatments this Week 1 Visit 1: Start Time 0951 Visit 1: Stop Time 1035 Visit 1: [...] Bench;Walker - rolling Prior Function Level of [place] Independent/Modified Independent with ADLs;Independent/Modified Independent with Functional [...] with home exercise program and safe progression CARIN Ingram/Armando - 11/21/2021 9:50 AM CDT 11/21/21 0950 [...] Layout One level Home Equipment Bedside commode;Cane;Cane-Quad;Lift chair;Harness Racing Handicapper;Tub Transfer Bench;Walker - rolling Prior Function Level of [place] Independent/Modified Independent with ADLs;Independent/Modified Independent with Functional [...] (37.6 ??C) Heart Rate: [71-97] 97 Resp: [14-] 18 BP: (118-142)/(63-83) 142/63 Physical Exam: Const: Resting comfortably in bed, No acute distress RLE: - Incisional Vac in place - No drainage - SILT SP/DP/T - 4/5 EHL/FHL 4/ GS/TA - +2 DP/PT, BCR <2s to [...] (mL) 11/19/21 0701 - 11/19/21 1900 11/19/21 1901 - 11/20/21 0700 11/20/21 0701 - 11/20/21 1900 11/20/21 1901 - 11/21/21 0626 Requested LDAs do not [...] BCR <2s to exposed digits Recent Labs 11/18/21165711/19/21 0401 11/20/21 0619 HGB 12.5 11.8* 12.3 HCT 40.2 38.5 39.2 Recent Labs 11/18/21165711/19/21 0401 11/20/21 0619 CREATININE 1.07* 1.05* 0.85 [...] Nilda Gonzalez - 11/20/2021 9:[address] [facility] Daily Progress Note Patient Name: Bogdan [...] otherwise doing well. Had a sandwich from [employer] last night. Hasn't had a bowel movement [...] dislocation of hip arthroplasty Signed: Nilda Gonzalez Associated attestation - Raysa Prajapati MD - [...] Nilda Gonzalez - 11/19/2021 9:[address] [facility] Daily Progress Note Patient Name: Bogdan [...] and internally rotated Expected TTP SILT T/DP/SP / EHL/FHL, / GS/TA +2 DP, BCR to exposed toes [...] head or LOC. She describes it as 8/10 ,on the lateral side of the hip and non radiating. The slightest movement makes it worse. Alleviated by rest and morphine in ER. Of note, she has a h/o elective R hip replacement at [facility] in 06/2019 with course complicated by three subsequent revisions after fall and periprosthetic femur fractures, last revision by Dr Hassan at [facility] in 04/2020. She reports being fully functional, being able to ambulate without any difficulty until this incident in the [facility] and was actually preparing to host a [...] 33 surgeries, most recently her shoulder ball daren has a past surgical history that includes [...] 12.5 / 242 / 40.2 \ 11/18 1657 138 100 22.8 / -- 4.1 24 1.07* \ 11/18 1657 M.7 (11/18 1657) Phos: 4.9* (11/18 1657) [...] Morbid obesity with BMI of 45.0-49.9, adult ([facility]) Stage 3a chronic kidney disease, GFR 45-60 [...] with 6% 30 day risk of , AR or cardiac arrest . - pre -op [...] has been working on weight loss through healthy choices and portion control, is down 59 lbs. On exam she is very pleasant and cooperative, able to provide detailed history. Afebrile; HR 60s-80s, BP 100s/60s - [id number] Cardiac rhythm regular, no pitting edema to [...] Surgical Procedures: ? 2011: Bilateral mastectomies ? [id number]: Several soft tissue procedures including resection of an 5th rib on the right and rightchest wall secondary to osteomyelitis then treated by IV antibiotics with Merrem for 8 weeks and 1 year of p.o. suppressive therapy ? Total of 18 surgeries for her breasts to include bilateral pectoral flaps ? 06/14/2019: Right total hip arthroplasty by Dr. Jordan; implants: DP [place] acetabular shell size 54 with a 36 mm neutral liner, size 36+ 1.5 ceramic head and 6 high offset [place] stem ? 08/22/2019: Revision right total hip [...] Full ROM at all joints SILT Ax/MC/M/R/U 09/04 Ax/MC/AIN/PIN/ULN 2+ Rad/Uln, BCR to exposed fingers LUE: No deformity, TTP, or open wounds Full ROM at all joints SILT Ax/MC/M/R/U 09/04 Ax/MC/AIN/PIN/ULN +2 Rad/Uln, BCR to exposed fingers RLE: Leg was shortened and externally rotated, moderate TTP to hip, no open wounds, incision well healed from prior SAMIR Full ROM at all joints except hip and knee due to pain SILT T/Hilario/Sa/DP/SP/Fem 5/ EHL/FHL/GS/TA +2 DP/PT, BCR to exposed toes LLE: No deformity, TTP, or open wounds Full ROM at all joints SILT T/Hilario/Sa/DP/SP/Fem 5/ EHL/FHL/GS/TA +2 DP/PT, BCR to exposed toes [...] scanned into chart, under Media tab in Epic ?? Follow up pre-op labs ?? Diet - NPO at [place] ?? Pain control ?? DVT prophylaxis - [...] femoral replacement and constrained liner for absent fuwhpgjst70/1/2020 Patient is unable to ambulate at this [...] CDTAssociated Order(s): IP CONSULT TO SOCIAL WORK aerial planting and cultivation manager received a consult for acute rehab. Per discussion with the patient and her son, referral sent to [facility] for evaluation for rehab via [facility]. PRANEETH Bernal, RN, [facility] Side Guider II [phone] documented in this encounter ED Notes Laureen [...] the last one occurring Apr 2020 at [facility] by Dr. Hassan. This morning, she felt her right leg give out and was then unable to put any weight on her right leg. She denies any trauma or falls prior to or after the episode. She called Dr. Hassan's office and was told to come to [facility] for evaluation. She denies any recent fevers/chills, abdominal/chest pain, N/V/D, and leg swelling. HISTORY: History documented here is for the purposes of medical decision making and the ED physician note. Itwill NOT file to the patient's permanent history.: Past Medical History: Diabetes: Yes Diabetes is currently be treated with oral diabetic medication. Is patient compliant with current medication(s): Yes HTN: Yes AR: No Cancer: Yes (inflammatory breast cancer) Social [...] Closed dislocation of right hip, initial encounter ([facility]) Right hip pain Plan ED Disposition ED [...] 0 Commonly known as: TESSALON * Biotin 86324 MCG Tabs Refills: 0 * Biotin 1 [...] the patient Pamella Balbuena MD Resident 11/18/21 8366 Associated attestation - Rasheeda Fernandes Jr., MD [...] Closed dislocation of right hip, initial encounter ([facility]) Acute 2. Right hip pain Acute 3. Dislocation of hip joint prosthesis, initial encounter ([facility]) Janes Mas RN - 11/18/2021 4:21 PM CDT Pt placed in gown. at bedside. documented in this encounter Miscellaneous Notes Plan of Care - Juan Esposito RN - 11/27/2021 1:00 PM CDT Discharge information discussed with patient. Patient verbalizes understanding and has no questions at this time. Patient provided with written copy of discharge instructions and prescriptions. Patientto be discharged to [facility] via stretcher driven by patient transport. Patient [...] Outcome: Progressing Problem: Adult Fall Risk and [place] Fall Precautions Goal: Fall risk and related [...] patient to make position changes slowly. 7. [place] patients to their bed areas, unit facilities, and how to get assistance. 8. Educate patient and family regarding the armband procedure. Instruct patient & family about fall prevention measures to use at home. 9. Patient education materials to be given to patient and family. Outcome: Progressing Goal: [place] Fall Precautions (all patients) Description: INTERVENTIONS: 1. [...] understood by others Description: INTERVENTIONS: 1. Utilize parts interpreter services for communication if needed 2. Provide written communication in preferred language when possible 3. Educate patient/caregiver on parts interpreter services when appropriate Outcome: Progressing Problem: Behavior [...] to organization policy. 7. Initiate consult with Foot Drill Operator or Pastoral/Spiritual Care as appropriate. Outcome: Progressing [...] ordered activity level. Outcome: Progressing Problem: Adult [place] Fall Precautions Goal: [place] Fall Precautions (Adults) Description: Implement [place] Fall Precautions Place call light, belongings, bedside [...] related injury risks are minimized Description: Implement [place] Fall Precautions - Scheduled rounding/offer toileting Q [...] 11/27/2021 12:25 PM CDT Report called to [facility]. Plan of Care - Ashleigh Martini LPN [...] Outcome: Progressing Problem: Adult Fall Risk and [place] Fall Precautions Goal: [place] Fall Precautions (all patients) Description: INTERVENTIONS: 1. [...] Outcome: Progressing Problem: Adult Fall Risk and [place] Fall Precautions Goal: Fall risk and related [...] patient to make position changes slowly. 7. [place] patients to their bed areas, unit facilities, and how to get assistance. 8. Educate patient and family regarding the armband procedure. Instruct patient & family about fall prevention measures to use at home. 9. Patient education materials to be given to patient and family. Outcome: Progressing Goal: [place] Fall Precautions (all patients) Description: INTERVENTIONS: 1. [...] understood by others Description: INTERVENTIONS: 1. Utilize parts interpreter services for communication if needed 2. Provide written communication in preferred language when possible 3. Educate patient/caregiver on parts interpreter services when appropriate Outcome: Progressing Goal: Expresses [...] to organization policy. 7. Initiate consult with Foot Drill Operator or Pastoral/Spiritual Care as appropriate. Outcome: Progressing [...] related injury risks are minimized Description: Implement [place] Fall Precautions - Scheduled rounding/offer toileting Q [...] Plan of Care. Plan of Care - CARIN Weiss/Armando - 11/26/2021 10:05 AM CDT Problem: Occupational [...] or lower unless otherwise indicated by MD honing machine operator production 5. Manage moisture, nutrition, and friction and [...] calves before rising. d) Teach patient to manufacturing electrician place before beginning to ambulate. e) Teach [...] toileting for pt. on diuretics/laxatives. 4. Adjust medical director per side effects (i.e., Lasix to be [...] calves before rising d) Teach patient to manufacturing electrician place before beginning to ambulate e) Teach [...] Outcome: Progressing Problem: Adult Fall Risk and [place] Fall Precautions Goal: Fall risk and related [...] patient to make position changes slowly. 7. [place] patients to their bed areas, unit facilities, and how to get assistance. 8. Educate patient and family regarding the armband procedure. Instruct patient & family about fall prevention measures to use at home. 9. Patient education materials to be given to patient and family. Outcome: Progressing Goal: [place] Fall Precautions (all patients) Description: INTERVENTIONS: 1. [...] understood by others Description: INTERVENTIONS: 1. Utilize parts interpreter services for communication if needed 2. Provide written communication in preferred language when possible 3. Educate patient/caregiver on parts interpreter services when appropriate Outcome: Progressing Goal: Expresses [...] 5. Encourage patient participation in care 6. [place] patient to unit and surroundings Outcome: Progressing [...] to organization policy. 7. Initiate consult with Foot Drill Operator or Pastoral/Spiritual Care as appropriate. Outcome: Progressing [...] 4. Encourage patient to communicate. 5. Consider ADVERTISING SALES EXECUTIVE consult Outcome: Progressing Problem: Metabolic/Fluid and Electrolytes [...] consult as needed. 6. Initiate consult for Hydraulic Lift Operator. Outcome: Progressing Problem: Skin/Tissue Integrity - Adult [...] hip dislocation precautions). Outcome: Progressing Problem: Adult [place] Fall Precautions Goal: [place] Fall Precautions (Adults) Description: Implement [place] Fall Precautions Place call light, belongings, bedside [...] source Patient Payor Payor Source Medicare;Commercial /Private (BS Federal) Payor correct at admission No Data Integrity notified Yes Drug coverage Yes Patient Information- Current Assessment Education Level Grade 12+ Home Services Patient Already Has None Primary Caregiver Self Grader Patrol Phone Number Cammy Garnett, daughter, Primary Care Information Primary Care Physician's Name Anabelle Yost Primary Care Physician's Number [phone] [facility]acy's Name [facility] Pharmacy's Number [phone] Activities of Daily Living- Prior to Admission Assistive Device/Equipment Cane;Rolling Walker;Wheelchair;Bedside commode;Other (Comment) (marking stitcher) Living Arrangement House;Lives alone Ambulation Independent Dressing Independent Feeding Independent Behavior Oriented Communication Talks;Understands speaking;Understands Kinyarwanda Anticipated Discharge Needs Expected Discharge Date 11/28/21 Anticipated Discharge Plan/ Needs Home;Acute Rehab;Unclear at present Assistive Device/Equipment needed at [place] Not applicable Obstacles/Barriers to Discharge Illness Mode [...] Antepartum/ No Plan of Care - Olive Barrera, PT, DPT - 11/25/2021 11:57 AM CDT [...] Plan of Care. Plan of Care - CARIN Weiss/Armando - 11/25/2021 8:55 AM CDT Problem: Occupational Therapy - Adult Goal: By Discharge: Performs self-care activities at highest level of function for planned dischargesetting. See evaluation for individualized goals. Outcome: Progressing Flowsheets (Taken 11/25/2021 0859) OT Discharge Recommendations: Acute Rehab OT Equipment [...] Outcome: Progressing Problem: Adult Fall Risk and [place] Fall Precautions Goal: [place] Fall Precautions (all patients) Description: INTERVENTIONS: 1. [...] or lower unless otherwise indicated by MD honing machine operator production 5. Manage moisture, nutrition, and friction and [...] calves before rising. d) Teach patient to manufacturing electrician place before beginning to ambulate. e) Teach [...] toileting for pt. on diuretics/laxatives. 4. Adjust medical director per side effects (i.e., Lasix to be [...] calves before rising d) Teach patient to manufacturing electrician place before beginning to ambulate e) Teach [...] Outcome: Progressing Problem: Adult Fall Risk and [place] Fall Precautions Goal: Fall risk and related [...] patient to make position changes slowly. 7. [place] patients to their bed areas, unit facilities, and how to get assistance. 8. Educate patient and family regarding the armband procedure. Instruct patient & family about fall prevention measures to use at home. 9. Patient education materials to be given to patient and family. Outcome: Progressing Goal: [place] Fall Precautions (all patients) Description: INTERVENTIONS: 1. [...] understood by others Description: INTERVENTIONS: 1. Utilize parts interpreter services for communication if needed 2. Provide written communication in preferred language when possible 3. Educate patient/caregiver on parts interpreter services when appropriate Outcome: Progressing Goal: Expresses [...] 5. Encourage patient participation in care 6. [place] patient to unit and surroundings Outcome: Progressing [...] to organization policy. 7. Initiate consult with Foot Drill Operator or Pastoral/Spiritual Care as appropriate. Outcome: Progressing [...] 4. Encourage patient to communicate. 5. Consider ADVERTISING SALES EXECUTIVE consult Outcome: Progressing Problem: Metabolic/Fluid and Electrolytes [...] consult as needed. 6. Initiate consult for Hydraulic Lift Operator. Outcome: Progressing Problem: Skin/Tissue Integrity - Adult [...] Plan of Care. Plan of Care - CARIN Weiss/Armando - 11/24/2021 11:06 AM CDT Problem: Occupational [...] calves before rising. d) Teach patient to manufacturing electrician place before beginning to ambulate. e) Teach [...] toileting for pt. on diuretics/laxatives. 4. Adjust medical director per side effects (i.e., Lasix to be [...] calves before rising d) Teach patient to manufacturing electrician place before beginning to ambulate e) Teach [...] Outcome: Progressing Problem: Adult Fall Risk and [place] Fall Precautions Goal: Fall risk and related [...] patient to make position changes slowly. 7. [place] patients to their bed areas, unit facilities, and how to get assistance. 8. Educate patient and family regarding the armband procedure. Instruct patient & family about fall prevention measures to use at home. 9. Patient education materials to be given to patient and family. Outcome: Progressing Goal: [place] Fall Precautions (all patients) Description: INTERVENTIONS: 1. [...] or lower unless otherwise indicated by MD honing machine operator production 5. Manage moisture, nutrition, and friction and [...] calves before rising. d) Teach patient to manufacturing electrician place before beginning to ambulate. e) Teach [...] toileting for pt. on diuretics/laxatives. 4. Adjust medical director per side effects (i.e., Lasix to be [...] calves before rising d) Teach patient to manufacturing electrician place before beginning to ambulate e) Teach [...] Outcome: Progressing Problem: Adult Fall Risk and [place] Fall Precautions Goal: Fall risk and related [...] patient to make position changes slowly. 7. [place] patients to their bed areas, unit facilities, and how to get assistance. 8. Educate patient and family regarding the armband procedure. Instruct patient & family about fall prevention measures to use at home. 9. Patient education materials to be given to patient and family. Outcome: Progressing Goal: [place] Fall Precautions (all patients) Description: INTERVENTIONS: 1. [...] understood by others Description: INTERVENTIONS: 1. Utilize parts interpreter services for communication if needed 2. Provide written communication in preferred language when possible 3. Educate patient/caregiver on parts interpreter services when appropriate Outcome: Progressing Problem: Behavior [...] to organization policy. 7. Initiate consult with Foot Drill Operator or Pastoral/Spiritual Care as appropriate. Outcome: Progressing [...] or lower unless otherwise indicated by MD honing machine operator production 5. Manage moisture, nutrition, and friction and [...] calves before rising. d) Teach patient to manufacturing electrician place before beginning to ambulate. e) Teach [...] toileting for pt. on diuretics/laxatives. 4. Adjust medical director per side effects (i.e., Lasix to be [...] calves before rising d) Teach patient to manufacturing electrician place before beginning to ambulate e) Teach [...] understood by others Description: INTERVENTIONS: 1. Utilize parts interpreter services for communication if needed 2. Provide written communication in preferred language when possible 3. Educate patient/caregiver on parts interpreter services when appropriate Outcome: Progressing Problem: Behavior [...] to organization policy. 7. Initiate consult with Foot Drill Operator or Pastoral/Spiritual Care as appropriate. Outcome: Progressing [...] or lower unless otherwise indicated by MD honing machine operator production 5. Manage moisture, nutrition, and friction and [...] calves before rising. d) Teach patient to manufacturing electrician place before beginning to ambulate. e) Teach [...] Outcome: Progressing Problem: Adult Fall Risk and [place] Fall Precautions Goal: Fall risk and related [...] patient to make position changes slowly. 7. [place] patients to their bed areas, unit facilities, and how to get assistance. 8. Educate patient and family regarding the armband procedure. Instruct patient & family about fall prevention measures to use at home. 9. Patient education materials to be given to patient and family. Outcome: Progressing Goal: [place] Fall Precautions (all patients) Description: INTERVENTIONS: 1. [...] Dislocation of hip joint prosthesis, initial encounter ([facility]) [T84.029A, Z96.649] Post-Op Diagnosis Codes: * Dislocation of hip joint prosthesis, initial encounter ([facility]) [T84.029A, Z96.649] Indication for Surgery: A 66-year-old [...] with a revision procedure for her hip. (DOC:[id number]) Procedure(s): Revision Right proximal femoral replacement NOTE: 22 Modifier was utilized for this procedure based on patient's morbid obesity. This increased the surgical complexity of the procedure requiring additional assistance and time for positioning, exposure and implantation. Anesthesia: General Surgeon(s) and Role: * Blas Armendariz MD - Primary Surgical Staff: Agriculture Laborer: Sherin Wood RN Rn Progressive Care Unit: Ines King Finish Remover: Rush Solis MD Implant(s): Depuy 54mm +4 Constrained liner 32mm +5 femoral head ceramic Specimen(s): ID Type Source Tests Collected by Time 1 : Right Hip Wound Tissue ANAEROBIC CULTURE, DEEP WOUND/TISSUE CULTURE W/ STAIN Blas Armendariz MD 11/20/2021 1439 2 : right hip synovium Tissue Tissue [...] home. We will await cultures as well. (DOC:[id number]) Plan of Care - Juan Esposito RN [...] or lower unless otherwise indicated by MD honing machine operator production 5. Manage moisture, nutrition, and friction and [...] calves before rising. d) Teach patient to manufacturing electrician place before beginning to ambulate. e) Teach [...] Outcome: Progressing Problem: Adult Fall Risk and [place] Fall Precautions Goal: Fall risk and related [...] patient to make position changes slowly. 7. [place] patients to their bed areas, unit facilities, and how to get assistance. 8. Educate patient and family regarding the armband procedure. Instruct patient & family about fall prevention measures to use at home. 9. Patient education materials to be given to patient and family. Outcome: Progressing Goal: [place] Fall Precautions (all patients) Description: INTERVENTIONS: 1. [...] understood by others Description: INTERVENTIONS: 1. Utilize parts interpreter services for communication if needed 2. Provide written communication in preferred language when possible 3. Educate patient/caregiver on parts interpreter services when appropriate Outcome: Progressing Problem: Decision [...] to organization policy. 7. Initiate consult with Foot Drill Operator or Pastoral/Spiritual Care as appropriate. Outcome: Progressing [...] Ongoing therapy 2-4x/week Plan of Care - JAME Ingram - 11/21/2021 9:50 AM CDT Problem: Occupational Therapy - Adult Goal: By Discharge: Performs self-care activities at highest level of function for planned dischargesetting. See evaluation for individualized goals. Flowsheets (Taken 11/21/2021 0950) OT Discharge Recommendations: Acute Rehab OT Equipment [...] or lower unless otherwise indicated by MD honing machine operator production 5. Manage moisture, nutrition, and friction and [...] of Surgery: 11/20/2021 Surgeon: Blas Armendariz MD Agriculture Laborer: Sherin Wood RN Rn Progressive Care Unit: Ines King Finish Remover: Rush Solis MD Preoperative Diagnosis: 1. Right [...] or lower unless otherwise indicated by MD honing machine operator production 5. Manage moisture, nutrition, and friction and [...] toileting for pt. on diuretics/laxatives. 4. Adjust medical director per side effects (i.e., Lasix to be [...] calves before rising d) Teach patient to manufacturing electrician place before beginning to ambulate e) Teach [...] calves before rising. d) Teach patient to manufacturing electrician place before beginning to ambulate. e) Teach [...] or lower unless otherwise indicated by MD honing machine operator production 5. Manage moisture, nutrition, and friction and [...] or lower unless otherwise indicated by MD honing machine operator production 5. Manage moisture, nutrition, and friction and [...] toileting for pt. on diuretics/laxatives. 4. Adjust medical director per side effects (i.e., Lasix to be [...] calves before rising d) Teach patient to manufacturing electrician place before beginning to ambulate e) Teach [...] calves before rising. d) Teach patient to manufacturing electrician place before beginning to ambulate. e) Teach [...] or lower unless otherwise indicated by MD honing machine operator production 5. Keep individual off trochanter (hip) or [...] or lower unless otherwise indicated by MD honing machine operator production 6. Keep individual off trochanter (hip) or [...] or lower unless otherwise indicated by MD honing machine operator production 6. Keep individual off trochanter (hip) or [...] Kasey Hassan MD [address] [facility] [place], [place] [address] (Wo rk) Scheduled Referrals Name Type [...] of37 resultswithin the time period is included. [facility] gist Method Time Signature POCT 142 (H) 74 - 106 11/27/2021 [facility] FINGERSTICK mg/dL 12:15 PM CDT DEPARTMENT OF GLUCOSE PATHOLOGY POCT PERFORMED Extra Gang Supervisor Id: 11/27/2021 [place] [id number] - 12:15 PM CDT DEPARTMENT OF [place], PATHOLOGY Octavia Specimen Anatomical Collection Method Collection Time Receive d Time (Source) Location / / Volume Laterality Blood 11/27/2021 12:08 11/27/2021 PM CDT 12:15 PM CDT Deisy Bazan MD POCT ORDERABLES - INTERFACED Performing Organization Address City/State/ZIP Code Phon e Number [facility] DEPARTMENT OF PATHOLOGY [address] [facility] [address] Street Telemetry Waveform (11/27/2021 7:05 AM CDT) [...] Signature Sodium 137 136 - 145 11/27/2021 [facility] mmol/L 6:23 AM CDT DEPARTMENT OF PATHOLOGY Potassium 4.4 3.4 - 4.5 11/27/2021 [facility] mmol/L 6:23 AM CDT DEPARTMENT OF PATHOLOGY Chloride 101 98 - 107 11/27/2021 [facility] mmol/L 6:23 AM CDT DEPARTMENT OF PATHOLOGY CO2 29 22 - 29 11/27/2021 [facility] mmol/L 6:23 AM CDT DEPARTMENT OF PATHOLOGY Anion Gap 7.0 6.0 - 14.0 11/27/2021 [facility] mmol/L 6:23 AM CDT DEPARTMENT OF PATHOLOGY BUN 10.4 8.0 - 23.0 11/27/2021 [facility] mg/dL 6:23 AM CDT DEPARTMENT OF PATHOLOGY Calcium 8.3 (L) 8.6 - 10.2 11/27/2021 [facility] mg/dL 6:23 AM CDT DEPARTMENT OF PATHOLOGY Glucose 106 74 - 106 11/27/2021 [facility] mg/dL 6:23 AM CDT DEPARTMENT OF PATHOLOGY Creatinine 0.82 0.51 - 11/27/2021 [facility] Serum/WB 0.95 mg/dL 6:23 AM CDT DEPARTMENT OF PATHOLOGY Comment: Elevated levels of N-acetylcyst eine and O-rucfjl-p-benzoquinone imine can cause falsely decreased values. eGFR (from >=60 ml/min/1.73m?? 11/27/2021 6:23 AM [facility] DEPARTMENT OF Creatinine) CDT PATHOLOGY Specimen Anatomical Collection Method / Collection Time Recei jackelyn Time (Source) Location / Volume Laterality Blood Lab Venipuncture / 11/27/2021 5:32 2021 5:55 Unknown AM CDT AM CDT Narrative [facility] DEPARTMENT OF PATHOLOGY - 6:23 [...] Organization Address City/State/ZIP Code Phon e Number [facility] DEPARTMENT OF PATHOLOGY [address] [facility] [place], [address] [address] (ABNORMAL) CBC (11/27/2021 5:32 AM CDT)Only the most recent of5 resultswithin the time period is included. [facility] gist Method Time Signature White Blood Cell 7.0 4.0 - 11/27/2021 [facility] Count 10.0 6:11 AM CDT DEPARTMENT OF /[facility] PATHOLOGY Red Blood Cell 3.14 (L) 3.80 - 11/27/2021 [facility] Count 4.80 6:11 AM CDT DEPARTMENT OF /cmm PATHOLOGY Hemoglobin 8.7 (L) 12.0 - 11/27/2021 [facility] 15.0 g/dL 6:11 AM CDT DEPARTMENT OF PATHOLOGY Hematocrit 28.8 (L) 36.0 - 11/27/2021 [facility] 46.0 % 6:11 AM CDT DEPARTMENT OF PATHOLOGY Mean Corpuscular 91.7 83.0 - 11/27/2021 [facility] Volume 101.0 fl 6:11 AM CDT DEPARTMENT OF PATHOLOGY MCH 27.7 27.0 - 11/27/2021 [facility] 32.0 pg 6:11 AM CDT DEPARTMENT OF PATHOLOGY Mean Corpuscular 30.2 (L) 31.5 - 11/27/2021 [facility] Hemoglobin Conc 34.5 g/dL 6:11 AM CDT DEPARTMENT O F PATHOLOGY Red Cell 14.7 12.0 - 11/27/2021 [facility] Distribution 15.0 6:11 AM CDT DEPARTMENT OF Width PATHOLOGY RDW - SD 49.5 (H) 36.4 - 11/27/2021 [facility] 46.3 fL 6:11 AM CDT DEPARTMENT OF PATHOLOGY Platelet Count 302 150 - 400 11/27/2021 [facility] 6:11 AM CDT DEPARTMENT OF PATHOLOGY Mean Platelet 9.7 9.4 - 11/27/2021 [facility] Volume 12.3 fl 6:11 AM CDT DEPARTMENT OF PATHOLOGY Specimen Anatomical Collection Method / Collection Time Recei jackelyn Time (Source) Location / Volume Laterality Blood Lab Venipuncture / 11/27/2021 5:32 2021 5:54 Unknown AM CDT AM CDT Narrative [facility] DEPARTMENT OF PATHOLOGY - 6:11 [...] Organization Address City/State/ZIP Code Phon e Number [facility] DEPARTMENT OF PATHOLOGY [address] [facility] [address] Street Telemetry Waveform (11/26/2021 11:14 PM CDT) Specimen (Source) Anatomical Collection Method Collection Time Re ceived Time Location / / Volume Laterality 11/26/2021 11:14 PM CDT Waveforms Interface CV CARDIOECG ORDERABLES Performing Organization Address City/[facility]/ZIP Code Phon e Number [facility] Telemetry Waveform (11/26/2021 11:14 PM CDT) Specimen (Source) Anatomical Collection Method Collection Time Re ceived Time Location / / Volume Laterality 11/26/2021 11:14 PM CDT Waveforms Interface CV CARDIOECG ORDERABLES Performing Organization Address City/[facility]/ZIP Code Phon e Number [place] Telemetry Waveform (11/26/2021 11:14 PM CDT) Specimen (Source) Anatomical Collection Method Collection Time Re ceived Time Location / / Volume Laterality 11/26/2021 11:14 PM CDT Waveforms Interface CV CARDIOECG ORDERABLES Performing Organization Address City/[facility]/ZIP Code Phon e Number [place] Telemetry Waveform (11/26/2021 2:48 PM CDT) Specimen (Source) Anatomical Collection Method Collection Time Re ceived Time Location / / Volume Laterality 11/26/2021 2:48 PM CDT Waveforms Interface CV CARDIOECG ORDERABLES Performing Organization Address City/[facility]/ZIP Code Phon e Number [place] Telemetry [...] Interface CV CARDIOECG ORDERABLES Performing Organization Address City/[facility]/ZIP Code Phon e Number [place] Telemetry [...] Interface CV CARDIOECG ORDERABLES Performing Organization Address City/[facility]/ZIP Code Phon e Number [place] Telemetry [...] City/State/ZIP Code Phon e Number [place] (ABNORMAL) MORPHOLOGY REVIEW (11/24/2021 5:02 AM CDT)Only the most recent of2 resultswithin the time period is included. [facility] Method Time Signature RBC Morphology abnormal (A) Normal 11/24/2021 [facility] 6:59 AM CDT DEPARTMENT OF PATHOLOGY Anisocytosis Moderate 11/24/2021 [facility] 6:59 AM CDT DEPARTMENT OF PATHOLOGY Macrocytes Moderate 11/24/2021 [facility] 6:59 AM CDT DEPARTMENT OF PATHOLOGY Plt Sufficiency Normal 11/24/2021 [facility] 6:59 AM CDT DEPARTMENT OF PATHOLOGY Specimen Anatomical Collection Method / Collection Time Recei jackelyn Time (Source) Location / Volume Laterality Blood Lab Venipuncture / 11/24/2021 5:02 2021 6:09 Unknown AM CDT AM CDT Misbah Pino MD LAB ONLY COLLECT PERFORMABLE S Performing Organization Address City/State/ZIP Code Phon e Number [facility] DEPARTMENT OF PATHOLOGY [address] [facility] [address] [phone] [place] [address] (ABNORMAL) CBC with Auto Differential (11/24/2021 5:02 AM CDT)Only the most recent of6 resultswithin the time period is included. [facility] Method Time Signature White Blood Cell 6.0 4.0 - 11/24/2021 [facility] Count 10.0 6:24 AM CDT DEPARTMENT OF TH/cmm PATHOLOGY Red Blood Cell 3.10 (L) 3.80 - 11/24/2021 [facility] Count 4.80 6:24 AM CDT DEPARTMENT OF M/cmm PATHOLOGY Hemoglobin 8.7 (L) 12.0 - 11/24/2021 [facility] 15.0 g/dL 6:24 AM CDT DEPARTMENT OF PATHOLOGY Hematocrit 29.4 (L) 36.0 - 11/24/2021 [facility] 46.0 % 6:24 AM CDT DEPARTMENT OF PATHOLOGY Mean Corpuscular 94.8 83.0 - 11/24/2021 [facility] Volume 101.0 fl 6:24 AM CDT DEPARTMENT OF PATHOLOGY MCH 28.1 27.0 - 11/24/2021 [facility] 32.0 pg 6:24 AM CDT DEPARTMENT OF PATHOLOGY Mean Corpuscular 29.6 (L) 31.5 - 11/24/2021 [facility] Hemoglobin Conc 34.5 g/dL 6:24 AM CDT DEPARTMENT O F PATHOLOGY Red Cell 14.8 12.0 - 11/24/2021 [facility] Distribution 15.0 6:24 AM CDT DEPARTMENT OF Width PATHOLOGY RDW - SD 51.6 (H) 36.4 - 11/24/2021 [facility] 46.3 fL 6:24 AM CDT DEPARTMENT OF PATHOLOGY Platelet Count 205 150 - 400 11/24/2021 [facility] TH/cmm 6:24 AM CDT DEPARTMENT OF PATHOLOGY Mean Platelet 10.7 9.4 - 11/24/2021 [facility] Volume 12.3 fl 6:24 AM CDT DEPARTMENT OF PATHOLOGY Neutrophils 64.0 44.0 - 11/24/2021 [facility] 65.0 % 6:24 AM CDT DEPARTMENT OF PATHOLOGY Lymphocytes 24.5 (L) 25.0 - 11/24/2021 [facility] Relative 46.0 % 6:24 AM CDT DEPARTMENT OF PATHOLOGY Monocytes 8.2 1.0 - 11/24/2021 [facility] Relative 10.0 % 6:24 AM CDT DEPARTMENT OF PATHOLOGY Eosinophils 2.7 0.0 - 9.0 11/24/2021 [facility] Relative % 6:24 AM CDT DEPARTMENT OF PATHOLOGY Basophils 0.3 0.0 - 4.0 11/24/2021 [facility] Relative % 6:24 AM CDT DEPARTMENT OF PATHOLOGY Immature 0.3 0.0 - 0.6 11/24/2021 [facility] Granulocytes % 6:24 AM CDT DEPARTMENT OF PATHOLOGY Comment: Immature Granulocytes are the c ombined total of Promyelocytes, Myelocytes, and Metamyelocytes. Nucleated RBC/Auto 0.0 <=0.0 /100WBC 11/24/2021 6:24 A M [facility] DEPARTMENT OF Diff CDT PATHOLOGY Neutrophils 3.84 1.80 - 7.80 11/24/2021 6:24 AM [facility] DE PARTMENT OF Absolute/Auto Diff TH/cmm CDT PATHOLOGY Lymphocyte 1.47 1.00 - 3.00 11/24/2021 6:24 AM [facility] DEP ARTMENT OF Absolute/Auto Diff TH/cmm CDT PATHOLOGY Monocytes 0.49 0.30 - 1.00 11/24/2021 6:24 AM [facility] DEPA RTMENT OF Absolute/Auto Diff TH/cmm CDT PATHOLOGY Eosinophil 0.16 0.00 - 0.50 11/24/2021 6:24 AM [facility] DEP ARTMENT OF Absolute/Auto Diff TH/cmm CDT PATHOLOGY Basophil Absolute/Auto 0.02 0.00 - 0.10 11/24/2021 6:24 AM [facility] DEPARTMENT OF Diff TH/cmm CDT PATHOLOGY Immature Granulocytes 0.02 0.00 - 0.10 11/24/2021 6:24 AM [facility] DEPARTMENT OF Absolute/Auto Diff TH/cmm CDT PATHOLOGY NRBC Absolute/Auto 0.00 TH/cmm 11/24/2021 6:24 AM [facility] DEPARTMENT OF Diff CDT PATHOLOGY Specimen Anatomical Collection Method / Collection Time Recei jackelyn Time (Source) Location / Volume Laterality Blood Lab Venipuncture / 11/24/2021 5:02 2021 6:09 Unknown AM CDT AM CDT Narrative [facility] DEPARTMENT OF PATHOLOGY - 6:24 [...] Organization Address City/State/ZIP Code Phon e Number [facility] DEPARTMENT OF PATHOLOGY [address] [facility] [address] [place] (ABNORMAL) Renal function panel (11/24/2021 5:02 AM CDT)Only the most recent of4 resultswithin the time period is included. P athologist Signature Albumin 3.2 (L) 3.5 - 5.5 11/24/2021 [facility] DEPARTMENT g/dL 6:39 AM CDT OF PATHOLOGY Calcium 8.6 8.6 - 10.2 11/24/2021 [facility] DEPARTMENT mg/dL 6:39 AM CDT OF PATHOLOGY Phosphorus 3.9 2.7 - 4.5 11/24/2021 [facility] DEPARTMENT mg/dL 6:39 AM CDT OF PATHOLOGY BUN 11.8 8.0 - 23.0 11/24/2021 [facility] DEPARTMENT mg/dL 6:39 AM CDT OF PATHOLOGY Sodium 139 136 - 145 11/24/2021 [facility] DEPARTMENT mmol/L 6:39 AM CDT OF PATHOLOGY Potassium 4.5 3.4 - 4.5 11/24/2021 [facility] DEPARTMENT mmol/L 6:39 AM CDT OF PATHOLOGY Comment: Please interpret results with c aution due to presence of hemolysis. Chloride 103 98 - 107 mmol/L 11/24/2021 6:39 AM [facility] DEPARTMENT OF CDT PATHOLOGY CO2 26 22 - 29 mmol/L 11/24/2021 6:39 AM [facility] D EPARTMENT OF CDT PATHOLOGY Anion Gap 10.0 6.0 - 14.0 11/24/2021 6:39 AM [facility] DEPAR TMENT OF mmol/L CDT PATHOLOGY Glucose 137 (H) 74 - 106 mg/dL 11/24/2021 6:39 AM [facility] D EPARTMENT OF CDT PATHOLOGY Creatinine Serum/WB 0.82 0.51 - 0.95 11/24/2021 6:39 AM [facility] DEPARTMENT OF mg/dL CDT PATHOLOGY Comment: Elevated levels of N-acetylcyst eine and M-shuait-d-benzoquinone imine can cause falsely decreased values. eGFR (from >=60 ml/min/1.73m?? 11/24/2021 6:39 AM [facility] DEPARTMENT OF Creatinine) CDT PATHOLOGY Specimen Anatomical Collection Method / Collection Time Recei jackelyn Time (Source) Location / Volume Laterality Blood Lab Venipuncture / 11/24/2021 5:02 2021 6:09 Unknown AM CDT AM CDT Narrative [facility] DEPARTMENT OF PATHOLOGY - 6:39 [...] Organization Address City/State/ZIP Code Phon e Number [facility] DEPARTMENT OF PATHOLOGY [address] [place], [address] [address] Telemetry Waveform (11/23/2021 11:16 PM CDT) Specimen (Source) Anatomical Collection Method Collection Time Re ceived Time Location / / Volume Laterality 11/23/2021 11:16 PM CDT Waveforms Interface CV CARDIOECG ORDERABLES Performing Organization Address City/[facility]/ZIP Code Phon e Number [facility] Telemetry Waveform (11/23/2021 11:16 PM CDT) Specimen (Source) Anatomical Collection Method Collection Time Re ceived Time Location / / Volume Laterality 11/23/2021 11:16 PM CDT Waveforms Interface CV CARDIOECG ORDERABLES Performing Organization Address City/[facility]/ZIP Code Phon e Number [place] Telemetry Waveform (11/23/2021 3:00 PM CDT) Specimen (Source) Anatomical Collection Method Collection Time Re ceived Time Location / / Volume Laterality 11/23/2021 3:00 PM CDT Waveforms Interface CV CARDIOECG ORDERABLES Performing Organization Address City/[facility]/ZIP Code Phon e Number [place] Telemetry Waveform (11/23/2021 1:57 PM CDT) Specimen (Source) Anatomical Collection Method Collection Time Re ceived Time Location / / Volume Laterality 11/23/2021 1:57 PM CDT Waveforms Interface CV CARDIOECG ORDERABLES Performing Organization Address City/[facility]/ZIP Code Phon e Number [place] Telemetry Waveform (11/23/2021 8:08 AM CDT) Specimen (Source) Anatomical Collection Method Collection Time Re ceived Time Location / / Volume Laterality 11/23/2021 8:08 AM CDT Waveforms Interface CV CARDIOECG ORDERABLES Performing Organization Address City/[facility]/ZIP Code Phon e Number [facility] Telemetry [...] Interface CV CARDIOECG ORDERABLES Performing Organization Address City/[place] [facility]/ZIP Code Phon e Number TELEWAVE Telemetry Waveform (11/22/2021 7:31 AM CDT) Specimen (Source) Anatomical Collection Method Collection Time Re ceived Time Location / / Volume Laterality 11/22/2021 7:31 AM CDT Waveforms Interface CV CARDIOECG ORDERABLES Performing Organization Address City/[facility]/ZIP Code Phon e Number TELEWAVE (ABNORMAL) Magnesium (11/22/2021 6:55 AM CDT)Only the most recent of5 results within the time period is included. P athologist Signature Magnesium 1.5 (L) 1.7 - 2.5 11/22/2021 [facility] DEPARTMENT mg/dL 7:51 AM CDT OF PATHOLOGY Specimen Anatomical Collection Method / Collection Time Recei jackelyn Time (Source) Location / Volume Laterality Blood Lab Venipuncture / 11/22/2021 6:55 2021 7:24 Unknown AM CDT AM CDT Raysa Prajapati MD LAB BLOOD ORDERABLES Performing Organization Address City/[facility]/ZIP Code Phon e Number [facility] DEPARTMENT OF PATHOLOGY [address] [place] [address] [place] Telemetry Waveform (11/22/2021 1:19 AM CDT) Specimen (Source) Anatomical Collection Method Collection Time Re ceived Time Location / / Volume Laterality 11/22/2021 1:19 AM CDT Waveforms Interface CV CARDIOECG ORDERABLES Performing Organization Address City/[facility] Phon e Number TELEWAVE Telemetry Waveform (11/21/2021 [...] 11/21/2021 7:37 AM CDT Waveforms Interface MD CV CARDIOECG ORDERABLES Performing Organization Address City/[facility]/ZIP Code Phon e Number TELEWAVE Telemetry Waveform (11/20/2021 11:28 PM CDT) Specimen (Source) Anatomical Collection Method Collection Time Re ceived Time Location / / Volume Laterality 11/20/2021 11:28 PM CDT Waveforms Interface MD CV CARDIOECG ORDERABLES Performing Organization Address City/[facility]/ZIP Code Phon e Number TELEWAVE XR Pelvis 1 or 2 Views (11/20/2021 6:16 PM CDT) Anatomical Region Laterality Modality Pelvis Computed Radiography Specimen (Source) Anatomical Collection Method Collection Time Re ceived Time Location / / Volume Laterality 11/20/2021 6:24 PM CDT Impressions 11/20/2021 6:32 PM CDT IMPRESSION: Appropriate alignment of the right hip a rthroplasty, status post surgical reduction. RESIDENT RADIOLOGIST: Apollo Garcia M.D . ATTENDING RADIOLOGIST: Malcom Munroe. I have personally [...] rthroplasty, status post surgical reduction. RESIDENT RADIOLOGIST: Apollo Garcia M.D . ATTENDING RADIOLOGIST: Malcom Munroe. I have personally reviewed the image(s) and the resident's interpretations, performed any necessary editing, and agree with the findings of this report. Raysa Prajapati MD [facility] DIAGNOSTIC IMAGING ORDER BABAK ANES Performed [facility]Invasive (11/20/2021 5:05 PM CDT) Specimen (Source) Anatomical Location Collection Method / Collectio n Time Received Time / Laterality Volume Narrative Radiology, Silent Title Checker - 11/20/2021 5:05 PM CDT This procedure was performed during a surgical case. Please see the anesthetic note for the f ormal interpretation. Raysa Prajapati MD IMG CLINIC AFB culture w/ Stain (11/20/2021 3:01 PM CDT) [facility] gist Method Time Signature Culture, AFB No Acid Fast 01/08/2022 [facility] bacilli 5:46 PM CDT DEPARTMENT OF isolated PATHOLOGY AFB Smear No acid fast 01/08/2022 [facility] bacilli seen on 5:46 PM [...] Organization Address City/State/ZIP Code Phon e Number [facility] DEPARTMENT OF PATHOLOGY [address] [facility] [address] [place] Deep Wound/Tissue Culture with stain (11/20/2021 3:01 PM CDT)Only the most recent of2 resultswithin the time period is included. [facility] Method [facility] Culture, Deep No Growth 11/23/2021 [facility] Wound after 72 9:47 AM CDT DEPARTMENT OF hours PATHOLOGY Gram Stain No WBC's 11/23/2021 [facility] Result seen. No 9:47 AM CDT DEPARTMENT OF organisms PATHOLOGY seen. Specimen Anatomical Collection Method Collection Time Receive d Time (Source) Location / / Volume Laterality Tissue BODY TISSUE 11/20/2021 3:01 PM 2 3:47 STRUCTURE / CDT PM CDT Unknown Comment: right hip synovium Blas Armendariz MD MICROBIOLOGY - GENERAL ORDER BABAK Performing Organization Address City/[facility]/ZIP Code Phon e Number [facility] DEPARTMENT OF PATHOLOGY [address] [facility] [address] [place] Anaerobic culture (11/20/2021 3:01 PM CDT)Only the most recent of2 resultswithin the time period is included. [facility] Culture, No anaerobes 11/24/2021 [facility] Anaerobe isolated 5:24 PM CDT DEPARTMENT OF PATHOLOGY Specimen Anatomical Collection Method Collection Time Receive d Time (Source) Location / / Volume Laterality Tissue BODY TISSUE 11/20/2021 3:01 PM 2 3:47 STRUCTURE / CDT PM CDT Unknown Comment: right hip synovium Blas Armendariz MD MICROBIOLOGY - GENERAL ORDER BABAK Performing Organization Address City/[facility]/ZIP Code Phon e Number [facility] DEPARTMENT OF PATHOLOGY [address] [place] [address] [place] Surgical Pathology Specimen (11/20/2021 2:42 PM CDT) Component Value Ref Test Analysis Performed At [facility] Method [facility] Case Report Surgical Pathology ?Case: [id number] ? 11/24/2021 [facility] Authorizing Provider: ??Jenni Armendariz MD ? Collected: ? 11/20/2021 1442 ? 9:36 AM DEPARTM ENT Ordering Location: ? [facility] OR ?Received: ?11/21/2021 0853 ? CDT OF PATHOLOGY Pathologist: ? Sue Musa MD ? Specimen: ?Hip, Right, R ight Hip ? Final A. SOFT TISSUE, HIP, RIGHT, EXCISION: [facility] Electronically Diagnosis - Fragments of [...] at 9:36 AM Clinical Right Hip 11/24/2021 [facility] Information 9:36 AM DEPARTMENT CDT OF PATHOLOGY Gross A. Hip, Right. 11/24/2021 [facility] Description Specimen A is received in [facility] labeled with patient's name, medical record number, ? right hip? and consists of an aggregate of taylor, fibrous tissue fragments (4.2 x 3.1 x 0.7 cm) which is divided and submitted entirely in A 1-A 4. (AI) 9:36 AM DEPARTMENT CDT OF PATHOLOGY Additional 11/24/2021 [facility] Electron ically Information Unless specified otherwise a ho, the quality of the H&E and any other special stains performed at [facility] Pathology Laboratory (AFB, PAS, immunostains, etc) is sati 9:36 AM DEPARTMENT signed by [facility], and any internal o r external positive and negative controls react appropriately. CDT OF PATHOLOGY Sue Musa MD on Any immunohistochemical, imm unofluorescence, or in-situ hybridization tests included in this report that were performed at [facility] were developed and their performance c 11/[facility] by [facility]. They have not been cleared or approved by the U.S. Food and Drug Administration (FDA). The FDA has determined that such clearance o 9:36 AM r approval is not necessary. These tests are used for clinical purposes. They should not be regarded as investigational or for research. The [facility] is certified under t Clinical Laboratory Impro vement Act of 1988 [...] Organization Address City/State/ZIP Code Phon e Number [facility] DEPARTMENT OF PATHOLOGY [address] [place] [address] [place] Telemetry Waveform (11/19/2021 11:42 PM CDT) Specimen (Source) Anatomical Collection Method Collection Time Re ceived Time Location / / Volume Laterality 11/19/2021 11:42 PM CDT Waveforms Interface CV CARDIOECG ORDERABLES Performing Organization Address City/State/ZIP Code Phon e Number TELEWAVE (ABNORMAL) Hemoglobin A1c (11/19/2021 6:16 PM CDT) Analysis Performed At Patho logist Time Signature Hemoglobin A1C 7.1 (H) 4.2 - 6.0 11/19/2021 [facility] % 7:36 PM CDT DEPARTMENT OF PATHOLOGY Comment: For evaluation of glycemic control in kn own diabetic non- adults: ?A1C <7% lower or higher target A1C values maybe appropriate for individual patients. For the diagnosis of diabetes mellitus: A1C >/=6.5% Increased risk for diabetes mellitus: ?? A1C 5.7-6.4% Mean Bld Glu Estimate 157 mg/dL 11/19/2021 7:36 PM CDT [facility] DEPARTMENT OF PATHOLOGY Comment: The [...] MD LAB BLOOD ORDERABLES Performing Organization Address City/[facility]/ZIP Code Phon e Number [facility] DEPARTMENT OF PATHOLOGY [address] [place] [address], [place] [address] [place] (ABNORMAL) Sedimentation rate (11/19/2021 6:29 AM CDT) Patholo gist Method Time Signature Erythrocyte 60.0 (H) 2.0 - 11/19/2021 [facility] Sedimentation 39.0 7:14 AM CDT DEPARTMENT OF Rate mm/hr PATHOLOGY Specimen Anatomical Collection Method Collection Time Receive d Time (Source) Location / / Volume Laterality Blood Collected during 11/19/2021 6:29 AM 11/19 6:39 insertion of IV / CDT AM CDT Unknown Narrative [facility] DEPARTMENT OF PATHOLOGY - 7:14 AM CDT If the anticoagulant ratio is incorrect when collecting an EDTA specimen, erythrocyte sedimentation rate may be erroneous. ??I t is recommended to fill the tube to the stated tube volume by vacutainer method. Raysa Prajapati MD LAB BLOOD ORDERABLES Performing Organization Address City/[facility]/ZIP [facility] Phon e Number [facility] DEPARTMENT OF PATHOLOGY [address] [place] [address], [place] [address] [place] (ABNORMAL) C-reactive protein (11/19/2021 6:29 AM CDT) Analysis Performed At Patho logist Time Signature C-Reactive 1.73 (H) 0.00 - 11/19/2021 [facility] Protein 0.50 mg/dL 7:18 AM CDT DEPARTMENT OF PATHOLOGY Specimen Anatomical Collection Method Collection Time Receive d Time (Source) Location / / Volume Laterality Blood Collected during 11/19/2021 6:29 AM 11/19 6:39 insertion of IV / CDT AM CDT Unknown Narrative [facility] DEPARTMENT OF PATHOLOGY - 7:18 AM CDT Significantly decreased CRP values may b e obtained from samples taken from patients who have been treated with carboxypenici llins. Raysa Prajapati MD LAB BLOOD ORDERABLES Performing Organization Address City/State/ZIP Code Phon e Number [facility] DEPARTMENT OF PATHOLOGY [address] [place] [address] [place] (ABNORMAL) Urinalysis with microscopic (11/19/2021 5:04 AM CDT) [facility] Method Time Signature Color UA Yellow Colorless, 11/19/2021 [facility] Light-Yello 5:27 AM CDT DEPARTMENT OF w, Yellow, PATHOLOGY Straw, Pale Yellow Clarity UA Slightly Clear, 11/19/2021 [facility] Cloudy Cloudy, 5:27 AM CDT DEPARTMENT OF Hazy, PATHOLOGY Slightly Cloudy, Slightly Hazy, Lightly Turbid, Other Leukocytes UA 11/19/2021 [facility] 5:27 AM CDT DEPARTMENT OF PATHOLOGY Protein UA 50.0 (A) Negative 11/19/2021 [facility] mg/dL 5:27 AM CDT DEPARTMENT OF PATHOLOGY Nitrite UA Negative Negative 11/19/2021 [facility] 5:27 AM CDT DEPARTMENT OF PATHOLOGY Blood UA 11/19/2021 [facility] 5:27 AM CDT DEPARTMENT OF PATHOLOGY Glucose Negative Negative 11/19/2021 [facility] mg/dL 5:27 AM CDT DEPARTMENT OF PATHOLOGY Ketones UA Trace (A) Negative 11/19/2021 [facility] mg/dL 5:27 AM CDT DEPARTMENT OF PATHOLOGY Ph UA 6.0 5.0 - 7.5 11/19/2021 [facility] 5:27 AM CDT DEPARTMENT OF PATHOLOGY Specific [place] 1.028 1.003 - 11/19/2021 [facility] UA 1.035 5:27 AM CDT DEPARTMENT OF PATHOLOGY Bilirubin UA Negative Negative 11/19/2021 [facility] mg/dL 5:27 AM CDT DEPARTMENT OF PATHOLOGY Urobilinogen UA Normal Normal 11/19/2021 [facility] mg/dL 5:27 AM CDT DEPARTMENT OF PATHOLOGY Bacteria UA None Absent, 11/19/2021 [facility] None /HPF 5:27 AM CDT DEPARTMENT OF PATHOLOGY Mucous UA Many (A) Rare, 11/19/2021 [facility] Occasional, 5:27 AM CDT DEPARTMENT OF None /LPF PATHOLOGY WBC UA 7.0 (H) 0.0 - 4.0 11/19/2021 [facility] /HPF 5:27 AM CDT DEPARTMENT OF PATHOLOGY RBC UA 79.0 (H) 0.0 - 4.0 11/19/2021 [facility] /HPF 5:27 AM CDT DEPARTMENT OF PATHOLOGY Squamous 4.0 (H) 0.0 - 3.0 11/19/2021 [facility] Epithelial UA /HPF 5:27 AM CDT DEPARTMENT OF PATHOLOGY Comment: The presence of these items may indicate contamination or an improperly collected specimen. Ca Oxalate Alicja UA Occasional Rare, Occasional, 11/19/2021 5:27 [facility] DEPARTMENT None /HPF AM CDT OF PATHOLOGY Leukocytes UA 25.0 (A) Negative Jacinto/uL 11/19/2021 5:27 [facility] DEPARTMENT JACINTO/UL AM CDT OF PATHOLOGY Comment: Not all white cells will demons trate leukocyte esterase activity. Blood UA, mg/dL 0.5 (A) Negative, 0.03 11/19/2021 5:27 AM [facility] DEPARTMENT OF mg/dL CDT PATHOLOGY Specimen Anatomical Collection Method Collection Time Receive d Time (Source) Location / / Volume Laterality Urine URINE / Unknown Non-blood 11/19/2021 5:04 AM 2021 5:09 collection / CDT AM CDT Unknown Narrative [facility] DEPARTMENT OF PATHOLOGY - 5:27 [...] Organization Address City/State/ZIP Code Phon e Number [facility] DEPARTMENT OF PATHOLOGY [address] [facility] [address] [place] Vitamin D (11/19/2021 4:01 AM CDT) P athologist Signature Vit D, 29.9 6.6 - 49.0 11/19/2021 [facility] DEPARTMENT 25-Hydroxy ng/mL 11:00 AM CDT OF PATHOLOGY Specimen Anatomical Collection Method Collection Time Receive d Time (Source) Location / / Volume Laterality Blood Collected during 11/19/2021 4:01 AM 11/19 4:31 insertion of IV / CDT AM CDT Unknown Narrative [facility] DEPARTMENT OF PATHOLOGY - 11:00 [...] Organization Address City/State/ZIP Code Phon e Number [facility] DEPARTMENT OF PATHOLOGY [address] [place] [address] [place] XR Chest 1 View (11/19/2021 12:28 AM [...] ? [facility] [place] [facility] Gender: ? 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 [id number] : ?1955 ? Requested By: RASHEEDA FERNANDES JR W Order Number: [id number] ?Reading MD: ?? Rasheeda Barbosa ? Measurements Intervals ?[place] ? Rate: ? 76 ? P: ?15 OR: ? 178 ?QRS: ?-5 QRSD: ? 110 ?T: ?32 QT: ? 404 ? QTc: ?455 ? Interpretive Statements Sinus rhythm Compared to ECG 04/10/2020 09:11:35 No significant change Electronically signed by Rasheeda nicolas 11-19-2021 5:40:51 CDT Rasheeda Fernandes Jr., MD CV CARDIOECG ORDERABLES Performing Organization Address [facility] Phon e Number CARDIOLOGY CARDIOECG-ORDERS Protime-INR (11/18/2021 11:38 PM CDT) athologist Signature Prothrombin Time 12.3 10.3 - 11/19/2021 [facility] 13.5 sec 12:37 AM CDT DEPARTMENT OF PATHOLOGY INR 1.03 0.80 - 11/19/2021 [facility] 1.10 12:37 AM CDT DEPARTMENT [...] MD LAB BLOOD ORDERABLES Performing Organization Address [facility] Phon e Number [facility] DEPARTMENT OF PATHOLOGY [address] [place] [address] Street Type and screen (11/18/2021 11:38 PM CDT) [facility] gist Method Time Signature ABO/RH TYPE A Positive 11/19/2021 [facility] ([place]) 12:57 AM CDT BLOOD BANK LAB Antibody Negative 11/19/2021 [facility] Screen 12:57 AM CDT BLOOD BANK LAB Specimen Anatomical Collection Method Collection Time Receive d Time (Source) Location / / Volume Laterality Blood Collected during 11/18/2021 11:38 022 insertion of IV / PM CDT 12:00 AM C DT Unknown Rasheeda Fernandes Jr., MD BLOOD BANK TEST ORDERABLES Performing Organization Address City/State/ZIP Code Phon e Number [facility] BLOOD BANK LAB [address] [facility], [place] [address] XR Knee Right 3 Views (11/18/2021 6:27 [...] is in expected position relative to the [place] distal femur. RIGHT KNEE: No acute fracture [...] is in expected position relative to the [place] distal femur. RIGHT KNEE: No acute fracture [...] MD IM DIAGNOSTIC IMAGING ORDER BABAK XR Hip WWO [...] CLINICAL HISTORY: Trauma ?? 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 Heterotopic ossification about the right hip. RIGHT FEMUR: No acute fracture. Proximal femoral pros thesis is in expected position relative to the [place] distal femur. RIGHT KNEE: No acute fracture [...] is in expected position relative to the [place] distal femur. RIGHT KNEE: No acute fracture [...] of this report. Rasheeda Fernandes Jr., MD [facility] DIAGNOSTIC IMAGING ORDER BABAK XR Femur Right [...] is in expected position relative to the [place] distal femur. RIGHT KNEE: No acute fracture [...] PM CLINICAL HISTORY: Trauma COMPARISON: Femur/hip radiographs 021 TECHNIQUE: XR KNEE RIGHT 3 VIEWS, XR HIP WWO PELVIS RIGHT 2 OR 3 VIEWS, XR FEMUR RIGHT MIN 2 VIEWS FINDINGS: RIGHT HIP: Superolateral dislocation of the right h ip arthroplasty. Heterotopic ossification about the right hip. RIGHT FEMUR: No acute fracture. Proximal femoral pros thesis is in expected position relative to the [place] distal femur. RIGHT KNEE: No acute fracture [...] Phosphorus 4.9 (H) 2.7 - 4.5 11/18/2021 [facility] DEPARTMENT mg/dL 5:48 PM CDT OF PATHOLOGY Specimen Anatomical Collection Method Collection Time Receive d Time (Source) Location / / Volume Laterality Blood Collected during 11/18/2021 4:58 PM 11/18 5:10 insertion of IV / CDT PM CDT Unknown Raseheda Fernandes Jr., MD LAB BLOOD ORDERABLES Performing Organization Address City/State/ZIP Code Phon e Number [facility] DEPARTMENT OF PATHOLOGY [address] [place] [address] [place] ED Screening for Hepatitis C (11/18/2021 4:58 PM CDT) Analysis Performed At Patho logist Time Signature Hepatitis C Not Not DORADO 11/18/2021 [facility] Antibody Detected Detected [employer] 5:52 PM CDT DEPARTMENT OF I2000 PATHOLOGY [...] Organization Address City/State/ZIP Code Phon e Number [facility] DEPARTMENT OF PATHOLOGY [address] [facility], [address] [address] documented in this encounter Visit Diagnoses Diagnosis [...] mention of complication, not stated as uncontrolled Dislocation of hip joint prosthesis, ini tial encounter (HCC) documented in this encounter Admitting Diagnoses Diagnosis [...] Wed11/18/21 at 2345 acetaminophen (TYLENOL) tablet 650 mg Given 11/22/2021 [...] Given 11/26/2021 9:16 AM CDT 12.5 mg diphenhydrAMINE (BENADRYL) capsule 50 mg Given 11/27/2021 10:31 AM CDT 50 mg 50 mg Every 6 hours PRN, Oral, Itching, Starting on Wed11/24/21 at 1332 Given 11/26/2021 9:33 PM CDT 50 mg Given 11/25/2021 9:15 PM CDT 50 mg Enoxaparin Sodium (LOVENOX) Given 11/27/2021 9:20 AM CDT 40 mg Abdominal Tissue injection 40 mg 40 mg BID-2 times daily, Subcutaneous, First dose on Wed11/23/21 at 1030 Given 11/26/2021 9:27 PM CDT 40 mg Abdom inal Tissue Given 11/26/2021 9:16 AM CDT 40 mg Abdom inal Tissue HYDROcodone-acetaminophen (NORCO) 10-325 Given 022 10:31 AM CDT 2 tablets MG per [...] needed medications, Starting on Wed11/26/21 at 1211 Insulin Lispro 0-5 Units Given 11/21/2021 8:42 AM CDT 1 Units Abdom inal Tissue 0-5 Units 3 times daily before meals, Subcutaneous, First dose on Wed11/19/21 at 0730 mirtazapine (REMERON) tablet 30 mg Given 11/26/2021 9:27 PM CDT 30 mg 30 mg Nightly, Oral, First dose on Wed11/19/21 at 0015 Given 11/25/2021 9:02 PM CDT 30 mg Given 11/24/2021 8:32 PM CDT 30 mg naloxone (NARCAN) 0.4 MG/ML injection 0. 4 [...] mEq rOPINIRole (REQUIP) tablet 2 mg Given 11/27/2021 [...] (after last modification) on Wed11/26/21 at 2100 therapeutic multivitamin-minerals Given 11/27/2021 9:20 AM CDT [...] (Give n - Provider: Juan Esposito RN) 81 mg Daily, Oral, First dose on Wed11/19/21 at 0900 calcium carbonate-vitamin D (CALTRATE D) 600-400 MG-UN IT per tablet 1 tablet 0822 (Given - Provider: Radha Rizzo RN)2101 (Given - Provider: Ashleigh Martini LPN) 0917 (Given - Provider: Juan Esposito RN)212 (Given - Provider: Ashleigh Martini LPN) 0920 (Given - Provider: Juan Esposito RN) 1 tablet BID-2 times daily, Oral, First dose on Wed11/19/21 at 0 015 carvedilol (COREG) tablet 12.5 mg 0822 (Given - Provid er: Radha Rizzo RN)1726 (Given - Provider: Radha Rizzo RN) 0916 (Given - Provider: Juan Esposito RN)1642 (Given - Provider: Juan Esposito RN) 0920 (Given - Provider: Juan Esposito RN) 12.5 mg 2 times daily with meals, Oral, First dose on Wed 2 at 0800 Enoxaparin Sodium (LOVENOX) injection 40 mg 0822 (Give n - Provider: Radha Rizzo RN)210 (Given - Provider: Ashleigh Martini LPN) 0916 (Given - Provider: Juan Esposito RN)2127 (Given - Provider: Ashleigh Martini LPN) 0920 [...] Esposito RN) 30 mL ONCE, Oral, On 7/27/22 at 1230, For 1 dose mirtazapine (REMERON) tablet 30 mg 2101 (Given - Provi josie: Ashleigh Martini LPN) 2126 (Given - Provider: Ashleigh Martini LPN) 30 mg Nightly, Oral, First dose on Wed11/19/21 at 0015 polyethylene glycol (GLYCOLAX) packet 17 g 0822 (Given - Provider: Radha Rizzo RN) 0917 (Given - Provider: Juan Esposito RN) 0920 (Give n - Provider: Juan Esposito RN) 17 g Daily, Oral, First dose on Wed11/19/21 at 0900 potassium chloride SA (K-DUR,KLOR-CON) CR tablet 20 mE q 0822 (Given - Provider: Radha Rizzo RN) 0917 (Not Given - Provider: Juan [...] 1 tablet Daily, Oral, First dose on Griselda 11/20/21 at 1445 venlafaxine (EFFEXOR-XR) 24 hr capsule 150 mg 0822 (Gi anthony - Provider: Radha Rizzo RN) 0916 (Given - Provider: Juan Esposito, LEILA) 0920 (Give n - Provider: Juan Esposito, LEILA) 150 mg Daily, Oral, First dose on [...] RN)2115 (Given - Provider: Ashleigh Martini LPN) 2133 (Given - Provider: Ashleigh Martini LPN) 1031 (Given - Provider: Juan Esposito RN) 50 mg Every 6 hours PRN, Oral, Itching, Starting on Wed11/24/21 at 1332 HYDROcodone-acetaminophen (NORCO) 10-325 MG per tablet 2 tablet 0023 (Given - Provider: Ashleigh Mratini LPN)1225 (Given - Provider: Radha Rizzo, LEILA)1726 (Given - Provider: Radha Rizzo RN)211 (Given - Provider: Ashleigh Martini LPN) 0547 (Given - Provider: Ashleigh argueta LPN)1512 (Given - Provider: Juan Esposito, LEILA)212 (Given - Provider: Ashleigh Martini LPN) 1031 (Given - Provider: Juan Esposito RN) 2 tablet Every 4 hours PRN, Oral, Modera te Pain, Starting on Wed11/24/21 at 1345 HYDROmorphone (DILAUDID) injection 0.5 mg 0104 (Given - Provider: Daniela Webber RN) 0.5 mg Every 4 hours PRN, Intravenous, S evere pain unrelieved by oral as needed medications, Starting on Wed11/26/21 at 1211 HYDROmorphone (DILAUDID) injection 1 mg (CANCELED) 0959 (Given - Provider: Juan Esposito RN) 1 mg Every 4 hours PRN, Intravenous, Sev ere pain unrelieved by oral as needed medications, Starting on Wed11/25/21 at 1214 HYDROmorphone (DILAUDID) injection 2 mg (CANCELED) 085 2 (Given - Provider: Radha Rizzo, LEILA) 2 mg Every 4 hours PRN, Intravenous, Sev ere Pain, Severe pain unrelieved by oral as needed medications, for use with physical therapy, Starting on Wed11/24/21 at 1345 naloxone (NARCAN) 0.4 MG/ML injection 0.4 mg 0.4 mg PRN, Intravenous, Opioid Reversal, Starting on Wed 2 at 0952 ondansetron (ZOFRAN) injection 4 [...] 2345 documented in this encounter Care Teams Polish Compounder Relationship Specialty Start Date End Date Anabelle Yost MD PCP - General Family Medicine 04/15/[address] [place] [address] [facility], [id number] documented as of this encounter
--- OUTSIDE RECORDS SUMMARY | 2022-02-01 20:29 | XMS_ITS | Encounter Summary ---
:1955 Author Organization [facility] Address [address] [place] [address] Phone Care Team Providers Name Role Phone Anabelle Yost MD Primary Care Provider Reason for Referral Consultation (Routine) - Closed Specialty Diagnoses / Procedures Referred By Contact Refer red To Contact Orthopaedics Diagnoses Other fracture of right femur, initial encounter for closed fracture (HCC) Failure of right total hip arthroplasty, initial encounter ([facility]) Kerrie Vidal, RAFAEL [address] [place] [address] Referral ID Status Reason Start Date Expiration Date Visits Requ ested Visits Authorized [id number] Closed 04/18/2020 04/19/2021 1 1 Question Answer How soon does this patient need this referral? See Com ment for Time Comments Follow up with Ortho SPOUT LINER HELPER in 1 week for wo und vac removal and drain check [facility] LENDING MANAGER Reason for Visit Auth/Cert Specialty Diagnoses / Procedures Referred By Contact Refer red To Contact Diagnoses Other fracture of right femur, initial encounter for closed fracture (HCC) Other fracture of right femur, initial encounter for closed fracture (HCC) [S72.8X1A] Procedures PA REVISE TOTAL HIP REPLACEMENT PA INSERT DRUG IMPLANT DEVICE REVISE TOTAL HIP INSERTION ANTIBIOTIC BEADS/SPACERS HIP Referral ID Status Reason Start Date Expiration Date Visits Requ ested Visits Authorized [id number] 1 1 Encounter Details Date Type Department Care Team Description 04/15/2020 - Hospital Encounter ELVIRA Hassan, Failure o f right total hip arthroplasty, initial encounter (HCC) (Primary Dx); 04/18/2020 ORTHOPAEDICS MD Kasey Other fracture of right femur, initial e ncounter for closed fracture (HCC); [address] Other fracture of right femu r, initial encounter for closed fracture ([facility]) [place] [id number] [phone] [place] [id number] Social History Tobacco Use Types Packs/Day Years [...] at Date Recorded Female 04/08/2020 10:19 AM BRANCH LENDING MANAGER COVID-19 Exposure Response Date Recorded In the last month, have you been in contact with No / Unsure 04/15/2020 6:56 PM BRANCH LENDING MANAGER someone who was confirmed or suspected to have Coronavirus / COVID-19? documented as of this encounter Last Filed Vital Signs Vital Sign Reading Time Taken Comments Blood Pressure 130/59 04/18/2020 10:07 AM BRANCH LENDING MANAGER Pulse 105 04/18/2020 10:07 AM BRANCH LENDING MANAGER Temperature 36.8 ??C (98.3 ??F) 04/18/2020 10:07 AM BRANCH LENDING MANAGER Respiratory Rate 16 04/18/2020 10:07 AM BRANCH LENDING MANAGER Oxygen Saturation 93% 04/18/2020 10:07 AM BRANCH LENDING MANAGER Inhaled Oxygen Concentration - - Weight 141.5 kg (312 lb) 04/15/2020 6:41 PM BRANCH LENDING MANAGER Height 172.7 cm (5' 8) 04/15/2020 6:41 PM BRANCH LENDING MANAGER Body Mass Index 47.44 04/15/2020 6:41 PM BRANCH LENDING MANAGER documented in this encounter Discharge Summaries Kerrie Vidal NP - 04/18/2020 10:44 AM CST Physician Discharge Summary Patient Name: Sarah Doran Age: 64 y.o. : 1955 Date: 04/18/2020 10:44 AM Admit date: 04/15/2020 Discharge date and time: 04/18/2020 10:43 AM Discharge diagnosis: Revision right total hip to constrained proximal femur replacement and Complex soft tissue rearrangement to salvage greater troch sling and fixation to implant with gluteus medius mobilization Principal Problem: Periprosthetic fracture of proximal end of femur Active Problems: Other fracture of right femur, initial encounter for closed fracture (HCC) Closed fracture of femur with nonunion Morbid obesity with BMI of 45.0-49.9, adult (HCC) Inflammatory breast cancer, unspecified laterality ([facility]) Diabetes mellitus ([facility]) On Admission: History of Present Illness: Sarah Doran was seen and evaluated by the Orthopaedic Surgery service due to concerns for possible infection of right hip prosthesis, and planned revision to proximal femur replacement. Significant Findings on Physical Exam: Extremities: bilateral lower extremity edema. ?? Pulses: Left DP: 1+ capillary refill normal ?? Skin: The skin over the operative site was inspected: Skin color, texture, turgor normal. No rashes or lesions. ? Neurologic: The patient denies numbness, tingling Left lower extremity. ?? Musculoskeletal: ROM-diminished range of motion left lower extremity, normal strength, Gait Abnormailities: antalgic no clubbing/cyanosis. Past Medical History: has a past medical history of Arthritis, Cancer ([facility]), Depression ([facility]), Diabetes mellitus ([facility]), and High blood pressure ([facility]). Hospital Course: Patient was admitted to the Orthopedic service with Dr. Hassan 04/15/2020 and underwent Revision righttotal hip to constrained proximal femur replacement and Complex soft tissue rearrangement to salvagegreater troch sling and fixation to implant with gluteus medius mobilization. Intraop cultures and surgical path samples were taken and sent to the lab. Estimated blood loss intraop noted to be 1000cc,and patient was transfused 1 unit PRBCs intraop. Incisional wound vac and RAGINI drains x 2 placed to RLE. Post op patient was transferred to the floor from PACU. She was started on broad spectrum antibiotics while cultures pended. SCDs and Lovenox ordered for DVT ppx. POD1 patient was able to void indepen dently. She was tolerating a diet without issue. Patient was mobilized with PT/OT and recommendations were provided for placement at discharge for continued therapy. Case management was consulted for assistance with discharge planning, and referrals made to patient's SNFs of choice. Mild hypotension noted post op, which improved during her admission. Patient was transitioned from long acting pain medication, to PRN meds for pain control. Acute blood loss anemia with hematocrit of 26.3 post op, but patient remained asymptomatic and did not require further blood products during admission. Intraop cultures resulted as no growth final on POD3. Patient was seen on rounds by Dr. Arauz POD3, and was found appropriate for discharge to swing bed. Patient accepted to [facility] for placement at discharge. She was transitioned to a prevena pump with good seal for DC. RAGINI drains with good suction. Patient will follow up with Ortho SPOUT LINER HELPER in 1 week for wound vac removal and drain check. She will start PO Keflex for prophylaxis while RAGINI drains are in place, and may stop this once drains are removed. A review of the [place] Prescription Monitoring System reveals no aberrant behavior. Procedures: Revision right total hip to constrained proximal femur replacement and Complex soft tissue rearrangement to salvage greater troch sling and fixation to implant with gluteus medius mobilization Treatments: IV antibiotics, incisional wound vac, RAGINI drains Significant Labs: none Significant Imaging, including Incidental Findings: None Microbiology/Pathology: Intrap cultures final with no growth; Surgical path: Final Diagnosis A. HIP, RIGHT: - Synovium and dense fibrous tissue, negative for acute inflammation. ?? B. HIP, RIGHT, # 2: - Synovium and dense fibrous tissue, negative for acute inflammation. ?? C. FEMUR, RIGHT: - Segments of bone with foci of intramedullary fibrosis and reactive changes. - No acute osteomyelitis identified. Consults: PT/OT, social and political studies professor, case management On Discharge: Discharge Condition: Able to complete ADL's with assistance Oriented to Person, Place and Time Significant Discharge Physical Exam: RLE: RAGINI drain x2 in place with s/s output Incisional VAC x1 in place with no output Expected TTP at incision site SILT T/DP/SP 5/ EHL/FHL, / GS/TA +2 DP, BCR to exposed toes ?? LUE: Swelling to forearm improving with elevation Several areas of deroofed blisters covered in Xeroform SILT M/R/U 5/5 AIN/PIN/U +2 radial, BCR to exposed fingers Last weight (!) 141.5 kg (312 lb) Last Blood Pressure 155/87 Labs at Discharge: Recent Labs 04/16/20 0435 04/17/20 0458 04/18/20 0515 WBC 10.2* 11.7* -- RBC 3.16* 2.95* -- HGB 8.9* 8.2* 7.9* HCT 28.0* 26.6* 26.3* MCV 88.6 90.2 -- MCH 28.2 27.8 -- MCHC 31.8 30.8* -- PLT 182 166 -- Most Recent Brief Chemistry 04/17/20 0458 NA 132* K 4.5 CL 96* CO2 27 BUN 23.0 CREATININE 0.88 GLU 210* Pending Tests: AFB cultures preliminary at discharge Disposition: Discharged to [facility] Facility Is inpatient Readmission Planned Within 30 days? No Patient Instructions: Range of motion/Weight-bearing Restrictions: WBAT right lower extremity, posterior hip precautions Activity: WBAT right lower extremity, posterior hip precautions Wound Care: prevena wound vac to remain in place until follow up on 04/24, RAGINI drain care Diet: resume prior to admission diet Medications: Current Discharge Medication List START taking these medications Details bacitracin ointment Apply topically as needed (skin tear) Qty: 120 g, Refills: 0 cephALEXin (KEFLEX) 500 MG capsule Take 1 capsule by mouth 4 times daily for 21 days Indications: prophylaxis while drains remain in place Qty: 84 capsule, Refills: 0 docusate sodium 100 MG CAPS Take 100 mg by mouth 2 times daily as needed for Constipation Qty: 10 capsule enoxaparin (LOVENOX) injection Inject 40 mg into the skin daily for 28 days Qty: 11.2 mL, Refills: 0 oxycodone-acetaminophen (PERCOCET) 10-325 MG per tablet Take 1 tablet by mouth every 8 hours as needed Max Daily Amount: 3 tablets Qty: 45 tablet, Refills: 0 !! rOPINIRole (REQUIP) 2 MG tablet Take 1 tablet by mouth daily as needed (restless legs) Qty: !! - Potential duplicate medications found. Please discuss with provider. CONTINUE these medications which have NOT CHANGED Details Ascorbic Acid (VITAMIN C) 1000 MG tablet Take 1,000 mg by mouth daily AZO-CRANBERRY PO Take by mouth Biotin 84095 MCG TABS Take 25,000 mcg by mouth Calcium Carb-Cholecalciferol (CALCIUM-VITAMIN D) 500-200 MG-UNIT per tablet Take 1 tablet by mouth 2times daily with meals colesevelam (WELCHOL) 625 MG tablet Take 1,875 mg by mouth 2 times daily with meals dicyclomine (BENTYL) 10 mg capsule Take 10 mg by mouth 4 times daily before meals and nightly ELDERBERRY PO Take 100 mg by mouth Fluticasone Furoate-Vilanterol (BREO ELLIPTA IN) Inhale into the lungs furosemide (LASIX) 40 mg tablet Take 40 mg by mouth daily gabapentin (NEURONTIN) 300 mg capsule Take 1 capsule by mouth 3 times daily Qty: 90 capsule, Refills: 6 Multiple Vitamin (MULTI-VITAMIN DAILY) TABS Take by mouth nebivolol (BYSTOLIC) 5 MG tablet Take 5 mg by mouth daily ondansetron (ZOFRAN) 4 mg tablet Take 4 mg by mouth every 8 hours as needed for Nausea Probiotic Product (PROBIOTIC-10 ULTIMATE) CAPS Take by mouth promethazine (PHENERGAN) 12.5 MG tablet Take 12.5 mg by mouth every 6 hours as needed for Nausea !! rOPINIRole (REQUIP) 2 MG tablet Take 2 mg by mouth nightly telmisartan (MICARDIS) 80 MG tablet Take 80 mg by mouth daily temazepam (RESTORIL) 30 MG capsule Take 30 mg by mouth nightly as needed for Sleep venlafaxine (EFFEXOR-XR) 150 mg 24 hr capsule Take 150 mg by mouth daily cyclobenzaprine (FLEXERIL) 10 mg tablet Take 10 mg by mouth 3 times daily as needed for Muscle spasms metFORMIN (GLUCOPHAGE) 500 mg tablet Take 500 mg by mouth 2 times daily with meals mirtazapine (REMERON) 15 mg tablet Take 15 mg by mouth nightly !! - Potential duplicate medications found. Please discuss with provider. STOP taking these medications diclofenac (VOLTAREN) 75 mg EC tablet HYDROcodone-acetaminophen (NORCO) 5-325 MG per tablet HYDROcodone-homatropine (HYCODAN) 5-1.5 MG/5ML syrup potassium chloride 20 MEQ/50ML IVPB telmisartan-hydrochlorothiazide (MICARDIS HCT) 80-25 MG per tablet Turmeric 500 MG CAPS aspirin 81 mg EC tablet dextrose 5 % SOLN 1,000 mL with MULTI-12 IV INJ 10 mL POTASSIUM PO Allergies: Allergies Allergen Reactions ??? Compazine [Prochlorperazine Edisylate] Shortness Of Breath ??? Nitrofurantoin Rash and Other (See Comments) ??? Prochlorperazine Anaphylaxis and Other (See Comments) ??? Other Other (See Comments) ??? Vancomycin Other (See Comments) Unsure of drug or dose, but caused total renal failure ??? Adhesive Rash Can tolerate paper tape ??? Mycin [Macrolides And Ketolides] Rash The patient was informed of thromboembolic disease (AMADOU) risk following trauma, and prophylactic medication Lovenox was recommended at time of discharge. The patient was provided with a cost estimate of the recommended AMADOU prophylaxis and was provided with a prescription. If for financial reasons the prescription could not be filled by the patient, he/she was advised of a lower cost alternative. An Enteric-coated 325 mg Aspirin tablet will be taken in place of the recommended medication. The risks associated with the use of Aspirin were covered. The patient voiced understanding that Aspirin is not considered a first line medication for AMADOU prophylaxis in trauma. Follow-up Instructions: Future Appointments: Future Appointments Date Time Provider Department Center 05/02/2020 8:15 AM Ofelia River NP PAV [facility] PAV Follow-up with Ortho SPOUT LINER HELPER in 1 week for wound vac removal and drain check Return precautions: Patient was instructed to call the clinic at [phone] if before 4:30pm and ask for the Ortho Resident should the following symptoms occur: fever > 101.5 F, chills, shortness of breath, chest pain, pain out of proportion, excessive or purulent wound drainage, foul odor from incision, new onset numbness/tingling or weakness to extremities, and any other concerns. If after 4:30pm, patient has been instructed to return to the Emergency Department. Admitting Physician: Kasey Hassan MD Discharging Physician: Kasey Hassan MD PCP: ANABELLE YOST MD Signed: Kerrie Vidal NP 04/18/2020 10:44 AM CH LENDING MANAGER Associated attestation - Kasey Hassan MD - 04/18/2020 5:12 PM BRANCH LENDING MANAGER ATTENDING ATTESTATION: I saw and evaluated the patient. I agree with the findings and plan as documented in the note Kasey Hassan. documented in this encounter Discharge Instructions Discharge InstructionsMihaela Benitez RN - 04/18/2020 10:53 AM CST DISCHARGE INSTRUCTIONS Note: Two copies of this document will be printed and signed, one for the patient and one for the patient's medical record. Home Discharge Plan of Care: Another institution-[facility] bed[facility]hospital Vaccinations: Pneumococcal vaccination date given 04/15/20 Discharge Planning Consults: Social Service Consult T. Pablo Date 04/18/20 and Other Consults: PT/OT Date 04/17/20 Activity: Activity as tolerated Equipment: To be determined at next level of care Diet: Regular diet Other Instructions: see above instructions Discharge Blood Pressure: BP Readings from Last 1 Encounters: 04/18/20 130/59 Weight: Discharge Wt: Wt Readings from Last 1 Encounters: 04/15/20 (!) 141.5 kg (312 lb) Admission Wt: 312lb CH LENDING MANAGER documented in this encounter Medications at Time of Discharge Medication Sig Dispensed Refills Start Date End Date Ascorbic Acid (VITAMIN Take 1,000 mg by 0 C) 1000 MG tablet mouth daily AZO-CRANBERRY PO Take by mouth 0 Biotin 52258 MCG TABS Take 25,000 mcg by 0 mouth Calcium Take 1 tablet by 0 Carb-Cholecalciferol mouth 2 times daily (CALCIUM-VITAMIN D) with meals 500-200 MG-UNIT per tablet colesevelam (WELCHOL) Take 1,250 mg by 0 625 MG tablet mouth 2 times daily with meals cyclobenzaprine Take 10 mg by mouth 0 (FLEXERIL) 10 mg tablet 3 times daily as needed for Muscle spasms dicyclomine (BENTYL) 10 Take 10 mg by mouth 0 mg capsule 4 times daily before meals and nightly ELDERBERRY PO Take 100 mg by mouth 0 Fluticasone Inhale into the 0 Furoate-Vilanterol (BREO lungs ELLIPTA IN) furosemide (LASIX) 40 mg Take 40 mg by mouth 0 tablet daily metFORMIN (GLUCOPHAGE) Take 500 mg by mouth 0 500 mg tablet daily with breakfast Multiple Vitamin Take by mouth 0 (MULTI-VITAMIN DAILY) TABS ondansetron (ZOFRAN) 4 Take 4 mg by mouth 0 mg tablet every 8 hours as needed for Nausea promethazine (PHENERGAN) Take 12.5 mg by 0 12.5 MG tablet mouth every 6 hours as needed for Nausea rOPINIRole (REQUIP) 2 MG Take 2 mg by mouth 0 tablet nightly temazepam (RESTORIL) 30 Take 30 mg by mouth 0 MG capsule nightly as needed for Sleep venlafaxine (EFFEXOR-XR) Take 150 mg by mouth 0 150 mg 24 hr capsule daily bacitracin ointment Apply topically as 120 g 0 04/18/20 20 04/28/2020 needed (skin tear) cephALEXin (KEFLEX) 500 Take 1 capsule by 84 capsule 0 04/1805/09/2020 MG capsule mouth 4 times daily for 21 days Indications: prophylaxis while drains remain in place docusate sodium 100 MG Take 100 mg by mouth 10 capsule 0 04/28/2020 CAPS 2 times daily as needed for Constipation enoxaparin (LOVENOX) Inject 40 mg into 11.2 mL 0 04/18/2005/16/2020 injection the skin daily for 28 days gabapentin (NEURONTIN) Take 1 capsule by 90 capsule 6 201904/10/2021 300 mg capsule mouth 3 times daily rOPINIRole (REQUIP) 2 MG Take 1 tablet by 0 04/1804/18/2021 tablet mouth daily as needed (restless legs) mirtazapine (REMERON) 15 Take 15 mg by mouth 0 11/27/2021 mg tablet nightly nebivolol (BYSTOLIC) 5 Take 5 mg by mouth 0 11/27/2021 MG tablet daily oxycodone-acetaminophen Take 1 tablet by 45 tablet 0 201905/08/2020 (PERCOCET) 10-325 MG per mouth every 8 hours tablet as needed Max Daily Amount: 3 tablets Probiotic Product Take by mouth 0 11/01 (PROBIOTIC-10 ULTIMATE) CAPS telmisartan (MICARDIS) Take 80 mg by mouth 0 11/27/2021 80 MG tablet daily documented as of this encounter Progress Notes Gilbert Boone OTR/Armando - 04/18/2020 1:30 PM CST 04/18/20 1330 Session Infomation OT Received On 04/18/20 Type of Session OT Treatment Number of Face to Face Visits Today 1 Number of Sessions this Week 3 Visit 1: Start Time 1330 Visit 1: Stop Time 1338 Visit 1: Time Calculation (min) 8 min Beginning of Session Disposition Session cleared with RN;Patient sitting on edge of bed;Family/visitor(s)/sitter present End of Session Disposition Patient left in chair/wheelchair (Pt being transported via wheelchair to [facility] wheelchair van) Pain Assessment Pain Assessment 0-10 0-10 Pain Scale Rating Pain Score (Did not rate. ) Precautions Weight bearing status RUE As tolerated Weight bearing status LUE As tolerated Weight bearing status RLE As tolerated Weight bearing status LLE As tolerated Hip precautions Posterior Other Precautions Fall precautions Current lines, drains, airways Wound vac;RAGINI Drain Cognition Overall Cognitive Status No apparent deficits Arousal/Alertness Appropriate responses Transfer 1 Activity Sit to Stand Level of Assist Minimal assist Number of assistants needed 2 Assistive Devices Rolling walker Cueing Verbal and Tactile cues for;Safety;Technique;Hand placement;Foot/lower extremity placement;Postural extension Number of Repetitions 1 Able to maintain precautions as ordered Yes Transfer 2 Activity Bed to Wheelchair Toward which side Right Level of Assist Minimal assist Number of assistants needed 2 Technique Stand pivot Assistive Devices Rolling walker Cueing Verbal and Tactile cues for;Safety;Technique;Controlled descent;Hand placement;Foot/lower extremity placement;Lower extremity management;Surgical precautions Number of Repetitions 1 Able to maintain precautions status as ordered Yes Assessment Therapy Problems Impaired ADL function;Decreased functional mobility;Impaired gait;Decreased strength;Decreased balance;Decreased endurance/activity tolerance;Pain Progress Progressing toward goals Rehab Potential Good OT Discharge Recommendations Placement for continued skilled OT services OT Equipment Recommendations To be determined at next level of care Assessment Comments Pt seen for functional transfers with sit to stand from bed with Min A of 2 persons using RW. Pt completed stand pivot transfer from bed to wc with Min A of 2 persons using RW. RN assisted with transfers. Pt's BLE elevated on legrests and pink wedge placed at bottom of footrests for comfort with RLE knee in extension at RLE legrests did not allow for pt to flex knee and maintain posterior hip precautions. Pt being transported to van for dc to SNF. Education Education Provided Safety techniques and recommendations;Precautions;Mobility/transfer training for patient/family Information Provided to; Level of Understanding Patient;Family;Verbalized understanding Plan Plan Comments No further skilled OT services as pt discharged from hospital this date. CH LENDING MANAGER Kerrie Vidal NP - 04/18/2020 10:22 AM CST TB Signs and Symptoms Assessment Does the patient have any of the following? A cough: No Hemoptysis:No Chest Pains:No Weight Loss:No Fever:No Weakness:No Loss of Appetite:No Difficulty Breathing:No Night Sweats:No If any questions are answered yes, please add comments: 1. The patient is safe for [facility]/swingbed admit Kerrie Vidal NP 04/18/2020 CH LENDING MANAGER Angel Arauz MD - 04/18/2020 8:13 AM CST Orthopaedic Surgery Progress Note Doing well this morning. Reports left forearm swelling has improved. Vitals: Temp: [97.8 ??F (36.6 ??C)-98.8 ??F (37.1 ??C)] 97.8 ??F (36.6 ??C) Heart Rate: [84-90] 84 Resp: [16-19] 18 BP: (114-164)/(45-87) 155/87 Physical Exam: Constitutional: Resting comfortably in bed in NAD RLE: RAGINI drain x2 in place with s/s output Incisional VAC x1 in place with no output Expected TTP at incision site SILT T/DP/SP 09/04 EHL/FHL, 09/04 GS/TA +2 DP, BCR to exposed toes LUE: Swelling to forearm improving with elevation Several areas of deroofed blisters covered in Xeroform SILT M/R/U 09/04 AIN/PIN/U +2 radial, BCR to exposed fingers Recent Labs 12/15/20 0435 04/17/20 0458 04/18/20 0515 HGB 8.9* 8.2* 7.9* HCT 28.0* 26.6* 26.3* Recent Labs 04/16/20 0435 04/17/20 0458 CREATININE 1.19* 0.88 BUN 31.0* 23.0 NA 134* 132* K 5.6* 4.5 CL 98 96* CO2 25 27 A/P: Sarah Doran is a 64 y.o. female s/p revision right SAMIR to proximal femur replacement by on 04/15/20. ?? Broad spectrum IV antibiotics until cultures return - Vancomycin and Zosyn ?? DVT prophylaxis - Lovenox 40mg daily to start POD1, SCD's while in bed for mechanical prophylaxis ?? F/u cultures - NGTD ?? Monitor drain output - 140, 70cc last shift ?? Monitor VAC output Acute blood loss anemia - Hct 26.3 and stable ?? Advance diet as tolerated ?? Elevation, N/V checks ?? Multimodal pain control ?? PT/OT evaluate and treat ?? Weight-bearing status: WBAT to right lower extremity Dispo: Mobilize with PT/OT. Pain control. Plan for discharge to [facility] when approved. Cultures will finalize today and plan to de-escalate antibiotics if negative. CH LENDING MANAGER Belia Moe DPT - 04/17/2020 11:39 AM CST 04/17/20 1139 Session Infomation PT Received On 04/17/20 Type of Session PT Treatment Number of Face to Face Visits Today 2 Number of Sessions this Week 2 Visit 1: Start Time 1100 Visit 1: Stop Time 1101 (Personal care. PT/OT to return at later time. ) Visit 1: Time Calculation (min) 1 min Visit 2: Start Time 1139 Visit 2: Stop Time 1231 Visit 2: Time Calculation (min) 52 min Visit 2: Co-Treatment with OT with PT Focus on LE Function Total Time Calculation (min) 53 min Beginning of Session Disposition Session cleared with RN;Patient in bed upon arrival;Family/visitor(s)/sitter present (Patient's [id number] present during therapy session ) End of Session Disposition Nursing staff notified of disposition;Call light in reach;Patient returned to bed;Head of bed elevated;Bed siderails up;Family/visitor(s)/sitter present (RN present in room upon PT/OT exit. ) Pain Assessment Pain Assessment 0-10 0-10 Pain Scale Rating Pain Score (No numerical value given) Pain Type Surgical pain Pain Location Leg Pain Orientation Right Pain Intervention(s) RN notified;Repositioned Response to Interventions Resting in bed. Precautions Weight bearing status RUE As tolerated Weight bearing status LUE As tolerated Weight bearing status RLE As tolerated Weight bearing status LLE As tolerated Hip precautions Posterior (R LE) Other Precautions Fall precautions Current lines, drains, airways RAGINI drain;Wound vac (RAGINI x 2) Bed Mobility 1 Activity Supine to sit Direction Left;To edge of bed Level of Assist Moderate assist Number of Assistants 2 Cueing/Assist Required For Tactile and Verbal cues for;Safety;Surgical precautions;Technique;Hand placement;Sequencing;Positioning;Foot/lower extremity placement;Lower extremity management Number of Repetitions 1 Able to maintain precautions as ordered Yes with cueing/assist Bed Mobility 2 Activity Sit to supine Direction Right Level of Assist Maximal assist Number of Assistants 2 Cueing/Assist Required For Tactile and Verbal cues for;Safety;Surgical precautions;Technique;Hand placement;Sequencing;Positioning;Lower extremity management;Foot/lower extremity placement Number of Repetitions 1 Able to maintain precautions as ordered Yes with cueing/assist Bed Mobility 3 Activity Scooting Direction Up in bed Level of Assist Moderate assist Number of Assistants 2 Cueing/Assist Required For Tactile and Verbal cues for;Safety;Surgical precautions;Technique;Hand placement;Positioning;Foot/lower extremity placement;Lower extremity management Number of Repetitions 1 Able to maintain weight bearing status as ordered Yes Transfer 1 Activity Sit to Stand;Stand to Sit (Elevated bed height ) Level of Assist Minimal assist Number of assistants needed 2 Assistive Devices (Bariatric RW) Cueing Verbal and Tactile cues for;Safety;Technique;Trunk and lower extremity extension;Controlled descent;Hand placement;Sequencing;Positioning;Foot/lower extremity placement;Surgical precautions;Postural Extension Number of Repetitions 1 Able to maintain precautions as ordered Yes with cueing/assist Transfer 2 Activity Sit to Stand;Stand to Sit (Elevated bed height ) Level of Assist Minimal assist Number of assistants needed 1 Assistive Devices (Bariatric RW) Cueing Verbal and Tactile cues for;Safety;Technique;Trunk and lower extremity extension;Controlled descent;Hand placement;Positioning;Foot/lower extremity placement;Surgical precautions;Postural Extension;Sequencing Number of Repetitions 1 Able to maintain precautions as ordered Yes with cueing/assist Balance Sitting Balance - static Sits without support for > 30 seconds. Sitting Balance-Dynamic Without Challenges - Movers/Returns center of gravity over base of support in multiple planes 100% of the time Balance Comments The patient required CGA to Min A x 1 in order to maintain static standing balance with use of bariatric RW. The patient required Min A x 2 for dynamic standing balance with use of bariatric RW. Gait 1 Level of Assist Minimal assist Assitive Devices (Bariatric RW) Number of Assistants 2 Distance in Steps (6 side steps left toward the head of the bed) Cueing Safety;Technique;Trunk and lower extremity extension;Balance;Hand placement;Safe use of assistive device;Sequencing;Lateral weight shift Gait Deviations Decreased gait velocity;Poor Posture Gait Patterns Side Stepping Gait Comments The patient was able to complete side stepping activity without incident. No LOB noted. Endurance/Activity Tolerance Endurance/Activity Tolerance Tolerates > 30 minutes of activity Assessment Therapy Problems Impaired ADL function;Decreased functional mobility;Impaired gait;Decreased strength;Decreased safety awareness/judgement;Decreased balance;Pain;Decreased endurance/activity tolerance Progress Progressing toward goals Rehab Potential Good Discharge Recommendations Placement for continued skilled PT services Equipment Recommendations To be determined at next level of care Assessment Comments The patient participated in PT treatment session well. The patient required Mod A x 2 for supine to sit. The patient required Max A x 2 for sit to supine. The patient progressed to Min A x 1 for sit to stand transfer with use of bariatric RW. The patient required Min A x 2 in orderto take side steps at the edge of the bed. The patient continues to fatigue quickly with mobility task, however recovers well with seated rest breaks. The patient was able to complete therapy session without incident. The patient will benefit from continued skilled PT in order to improve strength, endurance/activity tolerance, and safety with functional mobility. Will continue to progress the patientas appropriate. Education Education Provided Goals and treatment plan;Role of PT;Discharge recommendations;Safety techniques and recommendations;Precautions;Educated to call for assistance with mobility/transfers;Mobility/transfer training for patient/family Information Provided to; Level of Understanding Patient;Family;Verbalized understanding;Needs further education Plan Duration of Therapy Continue skilled therapy to address identified problems, as per Plan of Care.;Ongoing therapy 3-5x/week Treatment Interventions Functional Mobility;Gait Training;Therapeutic Activities;Strengthening;Patient/Caregiver Education;Balance Training;Discharge Needs CH LENDING MANAGER Gilbert Boone OTR/Armando - 04/17/2020 11:38 AM CST 04/17/20 1138 Session Infomation OT Received On 04/17/20 Type of Session OT Treatment Number of Face to Face Visits Today 2 Number of Sessions this Week 2 Visit 1: Start Time 1101 Visit 1: Stop Time 1101 (Pt receiving personal care. ) Visit 1: Time Calculation (min) 0 min Visit 2: Start Time 1138 Visit 2: Stop Time 1231 Visit 2: Time Calculation (min) 53 min Visit 2: Co-Treatment with PT with OT Focus on ADL;Endurance/Activity Tolerance Total Time Calculation (min) 53 min Beginning of Session Disposition Session cleared with RN;Patient in bed upon arrival;Family/visitor(s)/sitter present End of Session Disposition Patient returned to bed;Call light in reach;Head of bed elevated;Bed siderails up;Patient instructed to call for assistance with transfers;Family/visitor(s)/sitter present Pain Assessment Pain Assessment 0-10 0-10 Pain Scale Rating Pain Score (Did not rate. ) Precautions Weight bearing status RUE As tolerated Weight bearing status LUE As tolerated Weight bearing status RLE As tolerated Weight bearing status LLE As tolerated Hip precautions Posterior Other Precautions Fall precautions Current lines, drains, airways Wound vac;RAGINI Drain Cognition Overall Cognitive Status No apparent deficits Arousal/Alertness Appropriate responses Following Commands Follows commands without difficulty Bed Mobility 1 Activity Supine to sit Direction Left Level of Assist Moderate assist Number of Assistants 2 Cueing/Assist Required For Tactile and Verbal cues for;Safety;Technique;Surgical precautions;Hand placement;Foot/lower extremity placement;Lower extremity management Number of Repetitions 1 Bed Mobility 2 Activity Sit to supine Direction Right Level of Assist Maximal assist Number of Assistants 2 Cueing/Assist Required For Tactile and Verbal cues for;Safety;Surgical precautions;Technique;Hand placement;Foot/lower extremity placement;Lower extremity management Number of Repetitions 1 Bed Mobility 3 Activity Scooting Direction Up in bed (in supine) Level of Assist Moderate assist Number of Assistants 2 Cueing/Assist Required For Tactile and Verbal cues for;Safety;Technique;Surgical precautions;Hand placement;Foot/lower extremity placement Number of Repetitions 1 Transfer 1 Activity Sit to Stand;Stand to Sit Level of Assist Minimal assist Number of assistants needed 2 Assistive Devices Rolling walker Cueing Verbal and Tactile cues for;Safety;Technique;Controlled descent;Hand placement;Foot/lower extremity placement Number of Repetitions 1 Able to maintain precautions as ordered Yes Transfer 2 Activity Sit to Stand;Stand to Sit Level of Assist Minimal assist Number of assistants needed 1 Assistive Devices Rolling walker Cueing Verbal and Tactile cues for;Safety;Technique;Controlled descent;Hand placement;Foot/lower extremity placement Number of Repetitions 1 Able to maintain precautions status as ordered Yes Balance Sitting Balance - static Maintains with support of 1 upper extremity > 30 seconds Sitting Balance-Dynamic Without Challenges - Movers/Returns center of gravity over base of support in multiple planes 100% of the time Standing Balance -Static Supports self with assistive device >30seconds Standing Balance, Dynamic without Challenges - Moves/returns center of gravity over base of support in multiple planes 50-75% of the time Standing Balance Treatment Activities Midline orientation and postual retraining (static balance) Ambulation 1 Level of Assist Minimal assist Assistive Devices Rolling walker Number of Assistants 2 Distance in Steps 6 steps Ambulation Comments Refer to PT note for details. Endurance/Activity Tolerance Endurance/Activity Tolerance Tolerates > 30 minutes of activity Endurance Comments Pt fatigues easily with mobility. Grooming Level of Assistance Supervision/Stand by assistance Activity Completed Oral care Where Performed Edge of bed Type of Assistance Required Increased time to complete UE Dressing Level of Assist Supervision/Stand by assistance Article of Clothing Gown Where Performed Edge of bed Type of Assistance Required Positioning of clothing/device;Pull down in front UE Dressing Comments Changed hospital gown twice. LE Dressing Level of Assist Maximal assistance Article of Clothing Gripper socks Where Performed Supine in bed Type of Assistance Required Don/doff R sock;Don/doff L sock Assessment Therapy Problems Impaired ADL function;Decreased functional mobility;Impaired gait;Decreased strength;Decreased balance;Pain;Decreased endurance/activity tolerance Progress Progressing toward goals Rehab Potential Good OT Discharge Recommendations Placement for continued skilled OT services OT Equipment Recommendations To be determined at next level of care Assessment Comments Pt cooperative with skilled OT services. Pt required Mod A of 2 persons for supine to sit at EOB with cueing to adhere to posterior hip precautions. Pt able to complete sit to standwith RW with MIn A of 2 persons intially then progressing to Min A of 1 person using RW. Pt able to complete grooming and UB dressing tasks with supervision, seated on EOB. Pt required Max A of 2 perssons for sit to supine in bed. OT recommends placement for continued therapy services. OT to continue to follow and assess pt to address functional deficits and increase independence. Education Education Provided Safety techniques and recommendations;Precautions;Mobility/transfer training for p atient/family;Adaptive ADL techniques;Educated to call for assistance with mobility/transfers Information Provided to; Level of Understanding Patient;Family;Verbalized understanding;Needs further education Plan Duration of Therapy Continue skilled therapy to address identified problems, as per Plan of Care. Plan Comments Continue with OT POC. CH LENDING MANAGER Kerrie Vidal, RAFAEL - 04/17/2020 7:45 AM CST Orthopaedic Surgery Progress Note Resting comfortably in bed this morning. Swelling to LUE this morning. Vitals: Temp: [97.5 ??F (36.4 ??C)-99.1 ??F (37.3 ??C)] 99 ??F (37.2 ??C) Heart Rate: [91-99] 93 Resp: [14-18] 15 BP: (96-117)/(41-83) 117/62 Physical Exam: Constitutional: Resting comfortably in bed in NAD RLE: RGAINI drain x2 in place with bloody output Incisional VAC x1 in place with no output Expected TTP at incision site SILT T/DP/SP 5/ EHL/FHL, 5/ GS/TA +2 DP, BCR to exposed toes Recent Labs 04/15/20 1530 04/16/20 0435 04/17/20 0458 HGB -- 8.9* 8.2* HCT 35.7* 28.0* 26.6* Recent Labs 04/16/20 0435 04/17/20 0458 CREATININE 1.19* 0.88 BUN 31.0* 23.0 NA 134* 132* K 5.6* 4.5 CL 98 96* CO2 25 27 A/P: Sarah Doran is a 64 y.o. female s/p revision right SAMIR to proximal femur replacement by on 04/15/20. ?? Broad spectrum IV antibiotics until cultures return - Vancomycin and Zosyn ?? Intraop cultures pending- no growth at 24 hours ?? DVT prophylaxis - Lovenox 40mg daily to start POD1, SCD's while in bed for mechanical prophylaxis ?? Monitor drain output - 140/160 overnight ?? Monitor VAC output ?? Acute blood loss anemia - Hct 26.6 POD2 ?? Advance diet as tolerated ?? Elevation, N/V checks ?? Multimodal pain control ?? PT/OT evaluate and treat ?? Weight-bearing status: WBAT to right lower extremity, posterior hip precautions. Dispo: Mobilize with PT/OT. Pain control. F/u cultures. Monitor drain output. Patient seen today resting in bed. Wound vac and RAGINI drains to RLE with good seal. Oxycontin discontinued yesterday, patient tolerating PRN pain medications well. Mobilized with PT/OT, recommendations given for placement for continued therapy at discharge. Case management consulted for assistance with discharge planning. TB skin test, Covid test, and chest xray ordered today for placement. Swelling and blistering noted to LUE today. Patient reports blistering with use of certain tapes in the past, will use paper tape per patient tolerance. Elevate LUE, xeroform dressing to blister sites. sCr and potassium returned to baseline today, will stop IVFs and continue to monitor labs while receiving IV anti biotics. Intraop culture currently with no growth at 24 hours. Anticipate discharge after cultures are finalized and patient is accepted to [facility]. Manuela Vidal, TOUR COORDINATOR-C [phone] CH LENDING MANAGER Angel Arauz MD - 04/17/2020 7:16 AM CST Orthopaedic Surgery Progress Note Doing well this morning. Endorses soreness in right hip. Worked with PT yesterday, recommending placement. Vitals: Temp: [97.5 ??F (36.4 ??C)-99.1 ??F (37.3 ??C)] 99 ??F (37.2 ??C) Heart Rate: [91-99] 93 Resp: [14-18] 15 BP: (96-117)/(41-83) 117/62 Physical Exam: Constitutional: Resting comfortably in bed in NAD RLE: RAGINI drain x2 in place with s/s output Incisional VAC x1 in place with no output Expected TTP at incision site SILT T/DP/SP 5/5 EHL/FHL, 5/5 GS/TA +2 DP, BCR to exposed toes Recent Labs 04/15/20 1530 04/16/20 0435 04/17/20 0458 HGB -- 8.9* 8.2* HCT 35.7* 28.0* 26.6* Recent Labs 04/16/20 0435 04/17/20 0458 CREATININE 1.19* 0.88 BUN 31.0* 23.0 NA 134* 132* K 5.6* 4.5 CL 98 96* CO2 25 27 A/P: Sarah Doran is a 64 y.o. female s/p revision right SAMIR to proximal femur replacement by on 04/15/20. ?? Broad spectrum IV antibiotics until cultures return - Vancomycin and Zosyn ?? DVT prophylaxis - Lovenox 40mg daily to start POD1, SCD's while in bed for mechanical prophylaxis ?? F/u cultures - NGTD ?? Monitor drain output - 180cc total overnight ?? Monitor VAC output Acute blood loss anemia - Hct 26.6 this AM ?? Advance diet as tolerated ?? Elevation, N/V checks ?? Multimodal pain control ?? PT/OT evaluate and treat ?? Weight-bearing status: WBAT to right lower extremity Dispo: Mobilize with PT/OT. Pain control. F/u cultures. Monitor drain output. CH LENDING MANAGER Associated attestation - Kasey Hassan MD - 04/17/2020 5:03 PM [facility]AN[facility] LENDING MANAGER ATTENDING ATTESTATION: I saw and evaluated the patient. I agree with the findings and plan as documented in the note Kasey Hassan NP - 04/16/2020 1:51 PM CST Notified by social work that patient voiced history of suicidal thoughts during assessment. Patient evaluated, and at this time does not have suicidal thoughts or plan. Patient states it has been longer than six months since she has had any thoughts of self harm, and patient has not ever attempted to hurt herself. She is currently seeing a therapist, which she plans to continue after discharge. Suicide risk assessment on admission noted as low risk. Discussed options available to her while inpatient, however patient declined psych consult at this time. She did request having a commercial relationship manager visit if possible. Manuela Vidal, BJORN-Quinton [phone] CH LENDING MANAGER CARIN Maloney/rAmando - 04/16/2020 9:45 AM CST 04/16/20 0945 Session Infomation OT Received On 04/16/20 Type of Session OT Evaluation Number of Face to Face Visits Today 2 Number of Sessions this Week 1 Visit 1: Start Time 09 Visit 1: Stop Time 0906 (RN giving meds) Visit 1: Time Calculation (min) 1 min Visit 2: Start Time 0945 Visit 2: Stop Time 1026 Visit 2: Time Calculation (min) 41 min Visit 2: Co-Treatment with PT with OT Focus on Evaluation;ADL Total Time Calculation (min) 42 min Beginning of Session Disposition Session cleared with RN;Patient in bed upon arrival;Family/visitor(s)/sitter not present End of Session Disposition Patient returned to bed;Call light in reach;Head of bed elevated;Bed siderails up;Patient instructed to call for assistance with transfers;Family/visitor(s)/sitter present Pain Assessment Pain Assessment 0-10 0-10 Pain Scale Rating Pain Score 3 Pain Type Surgical pain Pain Location Leg Pain Orientation Right Pain Intervention(s) Ambulation/increased activity;Emotional support;Repositioned Patient stated goals Patient Stated Goals Pt stated she would like to go to a rehab facility before returning home due toliving alone. Pertinent Patient Info: PMH and Current Hx Pertinent Patient Information Pt is a 64 year old female s/p revision right SAMIR to proximal femur replacement by on 04/15/20. Pt with PMHx of Cancer, Depression, Diabetes Mellitus, High Blood Pressure,morbid obesity. Precautions Weight bearing status RUE As tolerated Weight bearing status LUE As tolerated Weight bearing status RLE As tolerated Weight bearing status LLE As tolerated Other Precautions Fall precautions Current lines, drains, airways Wound vac;RAGINI Drain Home Living Type of Home House Home Layout One level (One step entry) Bathroom Shower/Tub Tub/shower unit Bathroom Toilet Standard Bathroom Equipment Shower chair/seat Home Equipment Walker-rolling;Bedside commode Prior Function Level of Taylor Independent/Modified Independent with ADLs;Independent/Modified Independent with Functional Mobility;Independent/Modified Independent with Instrumental ADLs Assistance Available None, lives alone Comments Pt's two adult children live nearby. Cognition Overall Cognitive Status No apparent deficits Arousal/Alertness Appropriate responses Following Commands Follows commands without difficulty Vision Assessment Patient Comment No acute changes reported ROM LUE ROM AROM Within Normal Limits LUE ROM Comments Pt reports rotator cuff injury to L shoulder at baseline. RUE ROM AROM Within Normal Limits Hand Dominance Right Strength LUE Strength 4/5 RUE Strength 4/5 Sensation Light Touch No apparent deficits in upper extremities Coordination LUE Fine Motor Coordination Performs Digit-thumb opposition without difficulty RUE Fine Motor Coordination Performs digit-thumb opposition without difficulty Bed Mobility 1 Activity Supine to sit Direction Left Level of Assist Moderate assist Number of Assistants 2 Cueing/Assist Required For Tactile and Verbal cues for;Safety;Technique;Surgical precautions;Hand placement;Foot/lower extremity placement;Lower extremity management Number of Repetitions 1 Bed Mobility Comments Cueing for posterior hip precautions. Bed Mobility 2 Activity Sit to supine Direction Right Level of Assist Maximal assist Number of Assistants 2 Cueing/Assist Required For Tactile and Verbal cues for;Safety;Technique;Surgical precautions;Hand placement;Lower extremity management;Foot/lower extremity placement Number of Repetitions 1 Transfer 1 Activity Sit to Stand;Stand to Sit (bed height elevated. ) Level of Assist Minimal assist Number of assistants needed 2 Assistive Devices Rolling walker Cueing Verbal and Tactile cues for;Safety;Technique;Controlled descent;Hand placement;Foot/lower extremity placement;Postural extension Number of Repetitions 2 Balance Sitting Balance - static Sits without support for > 30 seconds. Sitting Balance-Dynamic Without Challenges - Movers/Returns center of gravity over base of support in multiple planes 100% of the time Standing Balance -Static Supports self with assistive device >30seconds Standing Balance, Dynamic without Challenges - Moves/returns center of gravity over base of support in multiple planes 50-75% of the time Standing Balance Treatment Activities Midline orientation and postual retraining (static balance);Standing weight shifting activities Ambulation 1 Level of Assist Minimal assist Assistive Devices Rolling walker Number of Assistants 2 Distance in Steps 6 steps (side steps) Ambulation Comments Refer to PT note for details. Endurance/Activity Tolerance Endurance/Activity Tolerance Tolerates > 30 minutes of activity Feeding Level of Assist Independent Grooming Level of Assistance Supervision/Stand by assistance Activity Completed Brushing hair;Wash/dry face Where Performed Edge of bed Type of Assistance Required Increased time to complete Bathing Level of Assist Unable to assess (Comment) UE Dressing Level of Assist Supervision/Stand by assistance LE Dressing Level of Assist Maximal assistance Article of Clothing Gripper socks Where Performed Supine in bed Type of Assistance Required Don/doff L sock;Don/doff R sock Toileting Level of Assist Moderate assistance Assessment Therapy Problems Impaired ADL function;Decreased functional mobility;Impaired gait;Decreased strength;Decreased balance;Pain;Decreased endurance/activity tolerance Rehab Potential Good OT Discharge Recommendations Placement for continued skilled OT services Assessment Comments Pt seen for initial OT eval this date. Pt required Mod A of 2 persons for supineto sit at EOB with cueing for posterior hip precautions. Pt required Min A of 2 persons for sit to stand using RW. Pt requires assist with ADLs. OT recommends placement for continued therapy services. OT to continue to follow and assess pt to address functional deficits and increase independence. Education Education Provided Role of OT;Goals and treatment plan;Discharge recommendations;Precautions;Mobility/transfer training for patient/family;Adaptive ADL techniques;Educated to call for assistance with mo bility/transfers Information Provided to; Level of Understanding Patient;Verbalized understanding;Needs further education Plan Duration of Therapy Ongoing therapy 1-5x/week Treatment Interventions Functional Mobility;Therapeutic Exercise;ADL Training;Therapeutic Activities;Strengthening;Patient/Caregiver Education;Balance Training;Discharge Needs;Home Exercise Program Plan Comments Initiate OT POC. Goal Formulation Goals to be Met or Reassessed in 2 weeks Goals Formulated With Patient Discharge Goals Discharge Goals Patient/Caregiver will verbalize understanding of recommendations for further therapy/DME needs, safety, and activity level. ADL Goals Grooming Independent;In standing;At sinkside Upper Body Dressing Independent Lower Body Dressing Moderate Assist;Verbalize understanding of technique;With adaptive equipment as needed Toileting Minimal Assistance Strength Goals Increase Strength Increase BUE strength 1/2 MMG to increase independence with ADLs and functional mobility. Transfer Goals Perform Sit to Stand Supervision/Setup;With appropriate assistive device;With assistance of 1 Perform Toilet Transfers To bedside commode;With appropriate assistive device;With assistance of 1 Precaution Goals Maintain Precautions During Functional Activities 100% of the Time Patient will verbalize understanding;Patient will demonstrate understanding;Hip precautions;Without cues HEP Goals Home Exercise Program Goals Patient will be independent with home exercise program and safe progression CH LENDING MANAGER Belia Moe DPT - 04/16/2020 9:44 AM CST 04/16/20 0944 Session Infomation PT Received On 04/16/20 Type of Session PT Evaluation Number of Face to Face Visits Today 2 Number of Sessions this Week 1 Visit 1: Start Time 905 Visit 1: Stop Time 09 (RN administering meds. PT/OT to return at later time. ) Visit 1: Time Calculation (min) 0 min Visit 2: Start Time 0944 Visit 2: Stop Time 1026 Visit 2: Time Calculation (min) 42 min Visit 2: Co-Treatment with OT with PT Focus on Evaluation;LE Function Total Time Calculation (min) 42 min Beginning of Session Disposition Session cleared with RN;Patient in bed upon arrival;Family/visitor(s)/sitter not present End of Session Disposition Nursing staff notified of disposition;Call light in reach;Patient returned to bed;Head of bed elevated;Bed siderails up;Family/visitor(s)/sitter present (Patient's daughter present at the end of therapy session ) Pain Assessment Pain Assessment 0-10 0-10 Pain Scale Rating Pain Score 3 Pain Type Surgical pain Pain Location Hip Pain Orientation Right Pain Intervention(s) RN notified;Repositioned;Ambulation/increased activity Response to Interventions Resting in bed. Pertinent Patient Info: PMH and Current Hx Pertinent Patient Information 64 year old female s/p revision right SAMIR to proximal femur replacement on 04/15/20. 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 Precautions Weight bearing status RUE As tolerated Weight bearing status LUE As tolerated Weight bearing status RLE As tolerated Weight bearing status LLE As tolerated Hip precautions Posterior (R LE) Other Precautions Fall precautions Current lines, drains, airways RAGINI drain;Wound vac (RAGINI x 2) Home Living Type of Home House Home Layout One level (1 step ) Bathroom Equipment Shower chair/seat Home Equipment Bedside commode;Walker-rolling Prior Function Level of Taylor Independent/Modified Independent with ADLs;Independent/Modified Independent with Functional Mobility Assistance Available None, lives alone (The patient's adult children live nearby. ) Cognition Arousal/Alertness Appropriate responses Following Commands Needs repetition Safety and Judgment Decreased safety awareness ROM LLE ROM AROM Within Defined Limits - Adequate ROM to perform ADLs and age- appropriate, functional activities RLE ROM Comments Hip ROM not tested due to posterior hip precautions. Knee and Ankle AROM WDL. Strength LLE Strength Within Defined Limits - Adequate strength to perform ADLs and age appropriate, basic functional activities LLE Strength Comments Demonstrated through AROM/Functional mobility. No formal MMT performed. RLE Strength Unable to assess;Deficits due to Pain;Deficits due to Precautions Sensation Light Touch No apparent deficits in lower extremities (Per patient report) Bed Mobility 1 Activity Supine to sit Direction Left;To edge of bed Level of Assist Moderate assist Number of Assistants 2 Cueing/Assist Required For Tactile and Verbal cues for;Safety;Surgical precautions;Technique;Hand placement;Sequencing;Positioning;Foot/lower extremity placement;Lower extremity management Number of Repetitions 1 Able to maintain precautions as ordered Yes with cueing/assist Bed Mobility 2 Activity Sit to supine Direction Right Level of Assist Maximal assist Number of Assistants 2 Cueing/Assist Required For Tactile and Verbal cues for;Safety;Surgical precautions;Technique;Sequencing;Positioning;Hand placement;Lower extremity management;Foot/lower extremity placement Number of Repetitions 1 Able to maintain precautions as ordered Yes with cueing/assist Transfer 1 Activity Sit to Stand;Stand to Sit (Elevated bed height ) Level of Assist Minimal assist Number of assistants needed 2 Assistive Devices (Bariatric RW) Cueing Verbal and Tactile cues for;Safety;Technique;Trunk and lower extremity extension;Controlled descent;Hand placement;Positioning;Foot/lower extremity placement;Postural Extension;Surgical precautions;Lower extremity management Number of Repetitions 2 Able to maintain precautions as ordered Yes with cueing/assist Balance Sitting Balance - static Sits without support for > 30 seconds. Sitting Balance-Dynamic Without Challenges - Movers/Returns center of gravity over base of support in multiple planes 100% of the time Balance Comments The patient required Min A x 2 with bariatric RW in order to maintain static/dynamic standing balance. Gait 1 Level of Assist Minimal assist Assitive Devices (Bariatric RW) Number of Assistants 2 Distance in Steps (6 side steps left toward the head of the bed ) Cueing Safety;Sequencing;Technique;Trunk and lower extremity extension;Balance;Lateral weight shift;Hand placement;Cueing for normalized gait pattern Gait Deviations Decreased gait velocity;Poor Posture Gait Patterns Side Stepping Gait Comments The patient required Min A x 2 with bariatric RW in order to take side steps at the edge of the bed. No LOB noted. The patient was able to complete side stepping activity without incident. Endurance/Activity Tolerance Endurance/Activity Tolerance Tolerates > 30 minutes of activity Assessment Therapy Problems Impaired ADL function;Decreased functional mobility;Impaired gait;Decreased strength;Decreased ROM;Decreased safety awareness/judgement;Decreased balance;Pain;Decreased endurance/activity tolerance Rehab Potential Good Discharge Recommendations Placement for continued skilled PT services Equipment Recommendations To be determined at next level of care Assessment Comments The patient participated in PT evaluation well. The patient was educated on R LEposterior hip precautions, patient verbalized understanding. The patient required Mod A x 2 for supine to sit. The patient required Max A x 2 for sit to supine. The patient required Min A x 2 for sit to stand transfers with use of bariatric RW. The patient required Min A x 2 with bariatric RW in orderto take side steps at the edge of the bed. The patient fatigues quickly with mobility task, however recovers well with seated rest breaks. The patient was able to complete therapy session without incident. The patient will benefit from continued skilled PT in order to improve deficits and maximize independence and safety with functional mobility. Will continue to progress the patient as appropriate. Education Education Provided Role of PT;Goals and treatment plan;Discharge recommendations;Safety techniques and recommendations;Mobility/transfer training for patient/family;Precautions;Educated to call for assistance with mobility/transfers Information Provided to; Level of Understanding Patient;Family;Verbalized understanding;Needs further education Plan Duration of Therapy Continue skilled therapy to address identified problems, as per Plan of Care.;Ongoing therapy 3-5x/week Treatment Interventions Functional Mobility;Gait Training;Therapeutic Activities;Strengthening;Discharge Needs;Balance Training;Patient/Caregiver Education;Wheelchair Skills/Training Goal Formulation Goals to be Met or Reassessed in 2 weeks Goals Formulated With Patient Discharge Goals Discharge Goals Patient/Caregiver will verbalize understanding of recommendations for further therapy/DME needs, safety, and activity level. Bed Mobility Goals Perform All Aspects of Bed Mobility Minimal Assistance;With assistance of 1 Transfer Goals Perform Sit to Stand Supervision/Setup;With appropriate assistive device;With assistance of 1 Perform Bed to Chair/Wheelchair Transfer Supervision/Setup;With assistance of 1;With appropriate assistive device Gait Goals Distance 25-50' Assistance Minimal Assistance;Using appropriate assistive device;With assistance of 1 Specifics of Gait On even surface;With good postural extension Precaution Goals Maintain Precautions During Functional Activities 100% of the Time Patient will verbalize understanding;Patient will demonstrate understanding;Hip precautions;Without cues CH LENDING MANAGER Kerrie Vidal NP - 04/16/2020 8:10 AM CST Orthopaedic Surgery Progress Note Resting comfortably this morning.No complaints at this time. Vitals: Temp: [97.2 ??F (36.2 ??C)-99.9 ??F (37.7 ??C)] 98.6 ??F (37 ??C) Heart Rate: [74-112] 102 Resp: [15-22] 20 BP: (88-140)/(53-107) 129/61 Physical Exam: Constitutional: Resting comfortably in bed in NAD RLE: RAGINI drain x2 in place with bloody output Incisional VAC x1 in place with no output Expected TTP at incision site SILT T/DP/SP 5/5 EHL/FHL, 5/5 GS/TA +2 DP, BCR to exposed toes Recent Labs 04/15/20 1530 04/16/20 0435 HGB -- 8.9* HCT 35.7* 28.0* Recent Labs 04/16/20 0435 CREATININE 1.19* BUN 31.0* NA 134* K 5.6* CL 98 CO2 25 A/P: Sarah Doran is a 64 y.o. female s/p revision right SAMIR to proximal femur replacement by on 04/15/20. ?? Broad spectrum IV antibiotics until cultures return - Vancomycin and Zosyn ?? DVT prophylaxis - Lovenox 40mg daily to start POD1, SCD's while in bed for mechanical prophylaxis ?? F/u cultures ?? Monitor drain output - 350 output overnight ?? Monitor VAC output Acute blood loss anemia - Hct 28 from 35.7, continue to monitor ?? Advance diet as tolerated ?? Elevation, N/V checks ?? Multimodal pain control ?? PT/OT evaluate and treat ?? Weight-bearing status: WBAT to right lower extremity, posterior hip precautions. Dispo: Mobilize with PT/OT. Pain control. F/u cultures. Monitor drain output. Patient seen today resting in bed. RAGINI drains x [address] and wound [address] in place to Right hip. Acute blood loss anemia with hct of 28 POD1, transfused 1 unit PRBCs intraop yesterday. Will recheck H/H tomorrow, and transfuse if needed for ABLA. Cultures currently pending, continue broad spectrum antibiotics until cultures finalized. PT/OT to mobilize patient today, will follow up with discharge recommendations. Patient voiced concern for discharge home as she lives alone and does not have anyone to provide assistance, will discuss with PT today. Mild increase in sCr from baseline 0.89 to 1.19 and potassium of 5.6 today. Likely related to surgery and addition of IV antibiotics. Continue IVFs today and will recheck BMP tomorrow to monitor sCr and potassium. Patient likely will remain inpatient until culturesfinal on 04/18. Manuela Vidal, TOUR COORDINATOR-C [phone] CH LENDING MANAGER Angel Arauz MD - 04/16/2020 5:51 AM CST Orthopaedic Surgery Progress Note Resting comfortably this morning. Pain controlled. Vitals: Temp: [97.2 ??F (36.2 ??C)-99.9 ??F (37.7 ??C)] 98.6 ??F (37 ??C) Heart Rate: [74-112] 102 Resp: [15-22] 20 BP: (88-140)/(53-107) 129/61 Physical Exam: Constitutional: Resting comfortably in bed in NAD RLE: RAGINI drain x2 in place with bloody output Incisional VAC x1 in place with no output Expected TTP at incision site SILT T/DP/SP 09/04 EHL/FHL, 5 GS/TA +2 DP, BCR to exposed toes Recent Labs 04/15/20 1530 04/16/20 0435 HGB -- 8.9* HCT 35.7* 28.0* Recent Labs 04/16/20 0435 CREATININE 1.19* BUN 31.0* NA 134* K 5.6* CL 98 CO2 25 A/P: Sarah Doran is a 64 y.o. female s/p revision right SAMIR to proximal femur replacement by on 04/15/20. ?? Broad spectrum IV antibiotics until cultures return - Vancomycin and Zosyn ?? DVT prophylaxis - Lovenox 40mg daily to start POD1, SCD's while in bed for mechanical prophylaxis ?? F/u cultures ?? Monitor drain output - 560 total output postop ?? Monitor VAC output Acute blood loss anemia - Hct 28 from 35.7, continue to monitor ?? Advance diet as tolerated ?? Elevation, N/V checks ?? Multimodal pain control ?? PT/OT evaluate and treat ?? Weight-bearing status: WBAT to right lower extremity Dispo: Mobilize with PT/OT. Pain control. F/u cultures. Monitor drain output. CH LENDING MANAGER Associated attestation - Kasey Hassan MD - 04/16/2020 2:38 PM BRANCH LENDING MANAGER ATTENDING ATTESTATION: I saw and evaluated the patient. I agree with the findings and plan as documented in the note Kasey Hassna. Angel Arauz MD - 04/15/2020 2:48 PM CST Orthopaedic Surgery Progress Note Patient seen for a postoperative check. Doing well postoperatively. Pain controlled. Vitals: Temp: [97.9 ??F (36.6 ??C)-98.3 ??F (36.8 ??C)] (P) 97.9 ??F (36.6 ??C) Heart Rate: [79-84] (P) 84 Resp: [18-19] (P) 18 BP: (138)/(82) (P) 107/76 Physical Exam: Constitutional: Resting comfortably in bed in NAD RLE: RAGINI drain x2 in place with bloody output Incisional VAC x1 in place with no output Expected TTP at incision site SILT T/DP/SP 5/5 EHL/FHL, 5/5 GS/TA +2 DP, BCR to exposed toes No results for input(s): HGB, HCT in the last 72 hours. No results for input(s): CREATININE, BUN, NA, K, CL, CO2 in the last 72 hours. A/P: Sarah Doran is a 64 y.o. female s/p revision right SAMIR to proximal femur replacement by on 04/15/20. ?? Broad spectrum IV antibiotics until cultures return - Vancomycin and Zosyn ?? DVT prophylaxis - Lovenox 40mg daily to start POD1, SCD's while in bed for mechanical prophylaxis ?? Keep dressings intact ?? Monitor drain output ?? Monitor wound VAC output ?? F/u labs ?? Advance diet as tolerated ?? Elevation, N/V checks ?? Multimodal pain control ?? PT/OT evaluate and treat ?? Weight-bearing status: WBAT to right lower extremity Dispo: Mobilize with PT/OT. Pain control. F/u cultures. Monitor drain output. CH LENDING MANAGER documented in this encounter H&P Notes Kasey Hassan MD - 04/15/2020 7:03 AM CST 04/15/2020 7:03 AM I have seen the patient and there have been no changes to the patient's history and physical examination and review of systems I have spoken with Sarah Doran and her family concerning the risks, benefits and alternatives tosurgical intervention as well as the risk of non operative management. Those risks include, but are not limited to: Bleeding, need for blood transfusion, infection, scar, pain, damage to nerves, damageto vasculature, chance of tumor recurrence and chance of future surgery for tumor or implant concerns, chance of completion or propagation of pathologic fracture, nonunion/malunion/malrotation, limb length inequality, dislocation risk; anesthesia risks which include: heart attack, stroke, blood clot, pulmonary embolism and . She understands these risks and has asked appropriate questions. She elects to proceed with surgical intervention. She agrees to blood products if indicated during or aftersurgery. Sarah Doran was informed during clinic that this operation has been scheduled to overlap with another surgery I am scheduled to perform. she understands that this means I will be present in the operating room during the critical parts of the operation but may not be present for the entire surgery. she was informed that I will lead the surgical team to perform the operation which may include another attending surgeon, a surgery fellow, or resident, and that some of the members of the team will perform parts of the procedure. I have assured the patient that I or another qualified surgeon will be immediately available should the need arise during surgery. All questions concerning overlapping surgery were answered and the patient gave their written consent. CH LENDING MANAGER Source Note - Winsome BoswellBJORN radford - 04/10/2020 8:15 AM BRANCH LENDING MANAGER HPI: Sarah Doran presents today as a 64 y.o. female here for preoperative workup for surgery Revise Total Hip To Proximal Femur Replacement/Total Oncologic Hip Replacement - Right Insertion Cement Beads/Spacers Hip - Right. Encounter Diagnoses Name Primary? Pre-op examination Yes ??? 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 Other fracture of right femur, initial encounter for closed fracture (HCC) A comprehensive review of systems was negative except for: Review of Systems: Review of Systems Constitutional: Positive for fatigue, aching and stiffness. HENT: Negative. Eyes: Negative. Respiratory: Positive for cough and shortness of breath. Cardiovascular: Positive for leg swelling, short of breath and high blood pressure. Gastrointestinal: Negative. Genitourinary: Positive for frequent urination and trouble stopping. Musculoskeletal: Positive for joint pain, joint replacement, joint instability, muscle pain, osteoarthritis and fracture. Skin: Negative. Neurological: Positive for dizziness and poor balance. Endo/Heme: Positive for diabetes and edema. Psychiatric/Behavioral: Positive for depression and insomnia. Past Medical History: Past Medical History: Diagnosis Date ??? Cancer (HCC) ??? Depression (HCC) ??? Diabetes mellitus (HCC) ??? High blood pressure (HCC) Past Surgical History: Past Surgical History: Procedure Laterality Date ??? HYSTERECTOMY 1999 Family History: Family History Problem Relation Age of Onset ??? Diabetes Mother ??? Cancer Mother ??? Stroke Mother ??? Hypercalcemia Father ??? No Known Problems Sister Social History: Social History Socioeconomic History ??? Marital status: Spouse name: Not on file ??? Number of children: Not on file ??? Years of education: Not on file ??? Highest education level: Not on file Occupational History ??? Not on file Social Needs ??? Financial resource strain: Not on file ??? Food insecurity Worry: Not on file Inability: Not on file ??? Transportation needs Medical: Not on file Non-medical: Not on file Tobacco Use ??? Smoking status: Never Smoker ??? Smokeless tobacco: Never Used Substance and Sexual Activity ??? Alcohol use: Yes Frequency: Monthly or less Comment: 1-2 socially ??? Drug use: Never ??? Sexual activity: Not on file Lifestyle ??? Physical activity Days per week: Not on file Minutes per session: Not on file ??? Stress: Not on file Relationships ??? Social connections Talks on phone: Not on file Gets together: Not on file Attends temple service: Not on file Active member of club or organization: Not on file Attends meetings of clubs or organizations: Not on file Relationship status: Not on file ??? Intimate partner violence Fear of current or ex partner: Not on file Emotionally abused: Not on file Physically abused: Not on file Forced sexual activity: Not on file Other Topics Concern ??? Not on file Social History Narrative ??? Not on file Medications: Current Outpatient Medications: ??? Ascorbic Acid (VITAMIN C) 1000 MG tablet, Take 1,000 mg by mouth daily, Disp: , Rfl: ??? Ascorbic Acid (VITAMIN C) 1000 MG tablet, Take by mouth, Disp: , Rfl: ??? aspirin 81 mg EC tablet, Take 81 mg by mouth daily, Disp: , Rfl: ??? AZO-CRANBERRY PO, Take by mouth, Disp: , Rfl: ??? Biotin 86884 MCG TABS, Take 25,000 mcg by mouth, Disp: , Rfl: ??? Calcium Carb-Cholecalciferol (CALCIUM-VITAMIN D) 500-200 MG-UNIT per tablet, Take 1 tablet by mouth 2 times daily with meals, Disp: , Rfl: ??? colesevelam (WELCHOL) 625 MG tablet, Take 1,875 mg by mouth 2 times daily with meals, Disp: , Rfl: ??? cyclobenzaprine (FLEXERIL) 10 mg tablet, Take 10 mg by mouth 3 times daily as needed for Muscle spasms, Disp: , Rfl: ??? dextrose 5 % SOLN 1,000 mL with MULTI-12 IV INJ 10 mL, Inject into the vein daily, Disp: , Rfl: ??? diclofenac (VOLTAREN) 75 mg EC tablet, Take 75 mg by mouth 2 times daily, Disp: , Rfl: ??? dicyclomine (BENTYL) 10 mg capsule, Take 10 mg by mouth 4 times daily before meals and nightly, Disp: , Rfl: ??? ELDERBERRY PO, Take 100 mg by mouth, Disp: , Rfl: ??? Fluticasone Furoate-Vilanterol (BREO ELLIPTA IN), Inhale into the lungs, Disp: , Rfl: ??? furosemide (LASIX) 40 mg tablet, Take 40 mg by mouth daily, Disp: , Rfl: ??? gabapentin (NEURONTIN) 300 mg capsule, Take 1 capsule by mouth 3 times daily, Disp: 90 capsule, Rfl: 6 ??? gabapentin (NEURONTIN) 300 mg capsule, Take 1 capsule by mouth 3 times daily, Disp: 90 capsule, Rfl: 6 ??? HYDROcodone-acetaminophen (NORCO) 5-325 MG per tablet, Take 1 tablet by mouth every 6 hours as needed for Pain, Disp: , Rfl: ??? HYDROcodone-homatropine (HYCODAN) 5-1.5 MG/5ML syrup, Take 5 mLs by mouth every 6 hours as needed, Disp: , Rfl: ??? metFORMIN (GLUCOPHAGE) 500 mg tablet, Take 500 mg by mouth 2 times daily with meals, Disp: , Rfl: ??? mirtazapine (REMERON) 15 mg tablet, Take 15 mg by mouth nightly, Disp: , Rfl: ??? Multiple Vitamin (MULTI-VITAMIN DAILY) TABS, Take by mouth, Disp: , Rfl: ??? nebivolol (BYSTOLIC) 5 MG tablet, Take 5 mg by mouth daily, Disp: , Rfl: ??? ondansetron (ZOFRAN) 4 mg tablet, Take 4 mg by mouth every 8 hours as needed for Nausea, Disp: ,Rfl: ??? potassium chloride 20 MEQ/50ML IVPB, Inject into the vein once, Disp: , Rfl: ??? POTASSIUM PO, Take by mouth, Disp: , Rfl: ??? Probiotic Product (PROBIOTIC-10 ULTIMATE) CAPS, Take by mouth, Disp: , Rfl: ??? promethazine (PHENERGAN) 12.5 MG tablet, Take 12.5 mg by mouth every 6 hours as needed for Nausea, Disp: , Rfl: ??? rOPINIRole (REQUIP) 2 MG tablet, Take 2 mg by mouth nightly, Disp: , Rfl: ??? telmisartan (MICARDIS) 80 MG tablet, Take 80 mg by mouth daily, Disp: , Rfl: ??? telmisartan-hydrochlorothiazide (MICARDIS HCT) 80-25 MG per tablet, Take 1 tablet by mouth daily, Disp: , Rfl: ??? temazepam (RESTORIL) 30 MG capsule, Take 30 mg by mouth nightly as needed for Sleep , Disp: , Rfl: ??? Turmeric 500 MG CAPS, Take by mouth, Disp: , Rfl: ??? venlafaxine (EFFEXOR-XR) 150 mg 24 hr capsule, Take 150 mg by mouth daily, Disp: , Rfl: Allergies: Allergies Allergen Reactions ??? Compazine [Prochlorperazine Edisylate] Shortness Of Breath ??? Nitrofurantoin Rash and Other (See Comments) ??? Prochlorperazine Anaphylaxis and Other (See Comments) ??? Other Other (See Comments) ??? Vancomycin Other (See Comments) Unsure of drug or dose, but caused total renal failure ??? Adhesive Rash Can tolerate paper tape ??? Mycin [Macrolides And Ketolides] Rash PHYSICAL EXAM: Vital Signs: There were no vitals filed for this visit. Body Mass Index: There is no height or weight on file to calculate BMI. General Appearance: healthy, alert, cooperative, oriented, and in no acute distress Affect: normal normal insight and judgment Head: Normocephalic. No masses, lesions, tenderness or abnormalities Eyes: conjunctiva normal Throat: Natural Dentition Neck: Neck supple without adenopathy, thyromegaly or masses Lungs: Normal Heart : No lifts, heaves, or thrills. RRR. No murmurs, clicks, or gallops Extremities: bilateral lower extremity edema. Pulses: Left DP: 1+ capillary refill normal Skin: The skin over the operative site was inspected: Skin color, texture, turgor normal. No rashes or lesions. Neurologic: The patient denies numbness, tingling Left lower extremity. Musculoskeletal: ROM-diminished range of motion left lower extremity, normal strength, Gait Abnormailities: antalgic no clubbing/cyanosis. Assessment: 1. Pre-op examination 2. 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 Other fracture of right femur, initial encounter for closed fracture (HCC) Plan: will proceed with planned surgical procedure. Discharge patient to anesthesia services for evaluation. Appropriate preop labs ordered Additional Information: The patient was instructed to inform the team of any upcoming dental or surgical procedures besides the planned surgery. The patient is on blood thinners and has plan developed for discontinuing aspirin and Voltaren PO 7 days prior to surgery. The patient was instructed to notify the team of any changes in health status, dental or surgical procedures, skin integrity, or blood thinner use. The patient was given a handout with instructions regarding self-isolation until surgery and a list of COVID symptoms to call and report should they experience any symptoms of COVID-19. The patient verbalized understanding of the above instructions. Code Status: Full Code BJORN Tejeda CH LENDING MANAGER documented in this encounter Consult Notes Kasey Dinero PharmD - 04/18/2020 9:32 AM CST Pharmacokinetics Consult - Vancomycin HPI: 64 y.o. female s/p revision right SAMIR to proximal femur replacement by Dr. Hassan on 04/15/20. Indication: Broad-spectrum coverage for orthopaedic infection Recent Labs Lab 04/16/20 0435 04/17/20 0458 04/17/20 1143 CREATININE 1.19* 0.88 -- GFR 46 >=60 -- WBC 10.2* 11.7* -- VANCOTR -- -- 9.6* Temp: [97.8 ??F (36.6 ??C)-98.8 ??F (37.1 ??C)] 97.8 ??F (36.6 ??C) Heart Rate: [84-90] 84 Resp: [16-19] 18 BP: (114-164)/(45-87) 155/87 Microbiology: No results found for: CULTUREBL No results found for: CULTUREUR No results found for: CULTURERESP 04/15 R femur - NGTD Ht: 5'8 Wt: 141.5 kg Estimated Creatinine Clearance: 98 mL/min (based on SCr of 0.88 mg/dL). Current antibiotic regimen: - vancomycin 2000 mg IV q18h - Zosyn 3.375 g IV q8h (EI) Goal trough 15 - 20 mcg/mL 04/17 trough: 9.6 mcg/mL prior to 3rd dose of 2000 mg IV q18h Plan: 1. Vancomycin listed as allergy. Per history, vancomycin caused renal failure. Trough today was 9.6 mcg/mL vancomycin 2000 mg IV q18h drawn prior to steady state, so it will likely continue to increase. Continue vancomycin 2000 mg IV q18h for now. 2. Repeat trough tonight at midnight. 3. Monitor renal function closely. Please call with any questions. Thank you for the consult, Kasey Dinero, PharmD [id number] CH LENDING MANAGER Julia ValentinoD - 04/17/2020 1:21 PM CST Pharmacokinetics Consult - Vancomycin HPI: 64 y.o. female s/p revision right SAMIR to proximal femur replacement by Dr. Hassan on 04/15/20. Indication: Broad-spectrum coverage for orthopaedic infection Recent Labs Lab 04/16/20 0435 04/17/20 0458 04/17/20 1143 CREATININE 1.19* 0.88 -- GFR 46 >=60 -- WBC 10.2* 11.7* -- VANCOTR -- -- 9.6* Temp: [97.5 ??F (36.4 ??C)-99 ??F (37.2 ??C)] 98.1 ??F (36.7 ??C) Heart Rate: [90-93] 90 Resp: [14-16] 16 BP: (96-119)/(41-64) 119/45 Microbiology: No results found for: CULTUREBL No results found for: CULTUREUR No results found for: CULTURERESP 04/15 R femur - NGTD Ht: 5'8 Wt: 141.5 kg Estimated Creatinine Clearance: 98 mL/min (based on SCr of 0.88 mg/dL). Current antibiotic regimen: - vancomycin 2000 mg IV q18h - Zosyn 3.375 g IV q8h (EI) Goal trough 15 - 20 mcg/mL 04/17 trough: 9.6 mcg/mL prior to 3rd dose of 2000 mg IV q18h Plan: 1. Vancomycin listed as allergy. Per history, vancomycin caused renal failure. Trough today was 9.6 mcg/mL vancomycin 2000 mg IV q18h drawn prior to steady state, so it will likely continue to increase. Continue vancomycin 2000 mg IV q18h for now. 2. Repeat trough in about 2 days. 3. Monitor renal function closely. Please call with any questions. Thank you for the consult, Kasey Dinero PharmD [id number] CH LENDING MANAGER Bisi Roland RN - 04/17/2020 10:41 AM CSTAssociated Order(s): IP CONSULT TO PICC TEAM VASCULAR ACCESS TEAM Date:April 17, 2020 Time: 1040 Consulted for vascular access. A 20 gauge angiocath started LFA using ultrasound guidance with bloodreturn noted and flushes easily, ready for use. Bisi Roland RN [facility] Adult Vascular Access Team CH LENDING MANAGER Kasey Dinero PharmD - 04/16/2020 8:49 AM CST Pharmacokinetics Consult - Vancomycin HPI: 64 y.o. female s/p revision right SAMIR to proximal femur replacement by Dr. Hassan on 04/15/20. Indication: Broad-spectrum coverage for orthopaedic infection Recent Labs Lab 04/10/20 1023 04/16/20 0435 CREATININE 0.89 1.19* GFR >=60 46 WBC 6.3 10.2* Temp: [97.2 ??F (36.2 ??C)-99.9 ??F (37.7 ??C)] 98.6 ??F (37 ??C) Heart Rate: [74-112] 102 Resp: [15-22] 20 BP: (88-140)/(53-107) 129/61 Microbiology: No results found for: CULTUREBL No results found for: CULTUREUR No results found for: CULTURERESP 04/15 R femur - NGTD Ht: 5'8 Wt: 141.5 kg Estimated Creatinine Clearance: 72.5 mL/min (A) (based on SCr of 1.19 mg/dL (H)). Current antibiotic regimen: - vancomycin 2000 mg IV q12h - Zosyn 3.375 g IV q8h (EI) Goal trough 15 - 20 mcg/mL Plan: 1. Vancomycin listed as allergy. Per history, vancomycin caused renal failure. Due to rising SCR, will empirically adjust vancomycin 2000 mg IV q18h. 2. Check trough prior to 3rd dose to assess clearance and hold dose if trough is >20 mcg/mL. 3. Monitor renal function closely. Please call with any questions. Thank you for the consult, Kasey Dinero PharmD [id number] CH LENDING MANAGER HILLARY Mendoza - 04/16/2020 8:47 AM CSTAssociated Order(s): IP CONSULT TO SOCIAL WORK; IP CONSULT TO CASE MANAGEMENT Assistant Community Director aware of consults. Patient will be assessed to assist with identifying anticipated discharge needs. CH LENDING MANAGER documented in this encounter Miscellaneous Notes Consult Follow-up - HILLARY Mendoza - 04/18/2020 12:03 PM CST 04/18/20 1201 Employee Operations ExaminerMagnetic Observer Information Patient expects to be discharged to: [facility] Type Shelter Facility Contact Name and Phone number Salina Martinez [phone] Current/Future Living Arrangements Patient lives alone. Family Member/Guardian Notified? Yes Family Member Name Cammy Doran (Daughter) Family Member Contact Number [phone] [facility] wheelchair van will picker operator Patient at 1:30, CH LENDING MANAGER Plan of Care - HILLARY Mendoza - 04/18/2020 11:58 AM CST Problem: Discharge Planning - Care Management Goal: [...] Arrange appropriate transportation to post-acute venues. Outcome: Completed Assistant Community Director contacted Salina Gannon with [facility] and confirmed that they can accept Patient today and provide wheelchair van transportation at 1:30. TYLER met with Patient and her daughter (Cammy) and informed them. SW allowed Patient to review and sign her Medicare IM letter. TYLER faxed discharge summary (AVS) and updated records to [facility] through edischarge. TYLER gaveNlayla Karimi the number to call report. No additional SW needs identified at this time. CH LENDING MANAGER Plan of Care - Mihaela Benitez RN - 04/18/2020 11:27 AM CST Discharge material reviewed with pt and family. Both verbalize understanding and deny any questions at this time. Written instructions and prescriptions provided to pt. Wound vac intact to RLE without complications along with two RAGINI's. Pt awaiting receiving facility to arrive for discharge transportation. CH LENDING MANAGER Plan of Care - Daniela Webber RN - 04/17/2020 7:46 PM CST Problem: Adult Fall Risk and Urania Fall Precautions Goal: Fall risk and related [...] patient to make position changes slowly. 7. Richardson patients to their bed areas, unit facilities, and how to get assistance. 8. Educate patient and family regarding the armband procedure. Instruct patient & family about fall prevention measures to use at home. 9. Patient education materials to be given to patient and family. Outcome: Progressing Goal: Urania Fall Precautions (all patients) Description: INTERVENTIONS: 1. Call light/belongings in reach 2. Bed in low position and locked 3. Wheelchairs and chairs locked 4. Non-slip footwear 5. Siderails up x 2 6. Adequate lighting, clutter free room Outcome: Progressing Problem: Pain - Adult Goal: [...] interventions unsuccessful or patient reports new pain Outcome: Progressing CH LENDING MANAGER Plan of Care - Belia Moe DPT - 04/17/2020 11:39 AM CST Problem: Physical Therapy - Adult Goal: By Discharge: Performs mobility at highest level of function for planned discharge setting. See evaluation for individualized goals. Flowsheets (Taken 04/17/2020 8050) Discharge Recommendations: Placement for continued skilled PT services Equipment Recommendations: To be determined at next level of care Assessment Comments: The patient participated in PT treatment session well. The patient required ModA x 2 for supine to sit. The patient required Max A x 2 for sit to supine. The patient progressed toMin A x 1 for sit to stand transfer with use of bariatric RW. The patient required Min A x 2 in order to take side steps at the edge of the bed. The patient continues to fatigue quickly with mobility task, however recovers well with seated rest breaks. The patient was able to complete therapy session without incident. The patient will benefit from continued skilled PT in order to improve strength, endurance/activity tolerance, and safety with functional mobility. Will continue to progress the patient as appropriate. Duration of Therapy: Continue skilled therapy to address identified problems, as per Plan of Care. Ongoing therapy 3-5x/week CH LENDING MANAGER Plan of Care - CARIN Maloney/Armando - 04/17/2020 11:38 AM CST Problem: Occupational Therapy - Adult Goal: By Discharge: Performs self-care activities at highest level of function for planned dischargesetting. See evaluation for individualized goals. Flowsheets (Taken 04/17/2020 4538) OT Discharge Recommendations: Placement for continued skilled OT services OT Equipment Recommendations: To be determined at next level of care Assessment Comments: Pt cooperative with skilled OT services. Pt required Mod A of 2 persons for supine to sit at EOB with cueing to adhere to posterior hip precautions. Pt able to complete sit to stand with RW with MIn A of 2 persons intially then progressing to Min A of 1 person using RW. Pt able tocomplete grooming and UB dressing tasks with supervision, seated on EOB. Pt required Max A of 2 perssons for sit to supine in bed. OT recommends placement for continued therapy services. OT to continueto follow and assess pt to address functional deficits and increase independence. Duration of Therapy: Continue skilled therapy to address identified problems, as per Plan of Care. CH LENDING MANAGER Plan of Care - Sachi Jones RN - 04/17/2020 10:31 AM CST Problem: Harmeet At Risk (score 15-18) Goal: [...] or lower unless otherwise indicated by MD cemetery counselor 5. Manage moisture, nutrition, and friction and shear 6. Use pressure reduction device if bed or chair bound Outcome: Progressing Problem: HDS Fall Risk Goal: High Risk (HDS score >/=15) Description: INTERVENTIONS: 1. Follow Urania Fall Precautions 2. Place yellow FALL RISK patient ID band on patient 3. Contact MD for PT/OT consult, if not already done 4. Provide patient/family education based on risk assessment using the HDS 5. Encourage patient/family to call staff for assistance when getting out of bed 6. Consider placing fall mats on one or both sides of bed and ensure correct placement with each assessment 7. Place a fall alarm device on patient's bed and ensure batteries are engaged with each assessment 8. Place patient in a room closer to the nursing station if available 9. Place RED fall precaution signage outside the patient door Outcome: Progressing Problem: Infection - Adult Goal: [...] isolation precautions for identified infection/condition Outcome: Progressing CH LENDING MANAGER Plan of Care - Daniela Webber RN - 04/16/2020 7:55 PM CST Problem: Adult Fall Risk and Urania Fall Precautions Goal: Fall risk and related [...] patient to make position changes slowly. 7. Richardson patients to their bed areas, unit facilities, and how to get assistance. 8. Educate patient and family regarding the armband procedure. Instruct patient & family about fall prevention measures to use at home. 9. Patient education materials to be given to patient and family. Outcome: Progressing Goal: Urania Fall Precautions (all patients) Description: INTERVENTIONS: 1. Call light/belongings in reach 2. Bed in low position and locked 3. Wheelchairs and chairs locked 4. Non-slip footwear 5. Siderails up x 2 6. Adequate lighting, clutter free room Outcome: Progressing Problem: Pain - Adult Goal: [...] interventions unsuccessful or patient reports new pain Outcome: Progressing CH LENDING MANAGER Plan of Care - Magnolia Arnold RN - 04/16/2020 3:55 PM CST Problem: Harmeet At Risk (score 15-18) Goal: [...] or lower unless otherwise indicated by MD cemetery counselor 5. Manage moisture, nutrition, and friction and shear 6. Use pressure reduction device if bed or chair bound Outcome: Progressing Problem: Harmeet Moderate Risk(Score 12-14) [...] or lower unless otherwise indicated by MD cemetery counselor 5. Keep individual off trochanter (hip) or wound with positioning of 30 degrees or below 6. Manage moisture, nutrition, and friction and shear 7. Use pressure reduction device if bed or chair bound 8. DO NOT massage bony prominences Outcome: Progressing Problem: Adult Fall Risk and Urania Fall Precautions Goal: Fall risk and related [...] patient to make position changes slowly. 7. Richardson patients to their bed areas, unit facilities, and how to get assistance. 8. Educate patient and family regarding the armband procedure. Instruct patient & family about fall prevention measures to use at home. 9. Patient education materials to be given to patient and family. Outcome: Progressing Goal: Urania Fall Precautions (all patients) Description: INTERVENTIONS: 1. Call light/belongings in reach 2. Bed in low position and locked 3. Wheelchairs and chairs locked 4. Non-slip footwear 5. Siderails up x 2 6. Adequate lighting, clutter free room Outcome: Progressing Problem: HDS Fall Risk Goal: Low Risk (HDS score 7-10) Description: INTERVENTIONS: 1. Initiate universal fall precautions (UFPs) and individualize fall protocol 2. Place yellow FALL RISK patient ID band on patient 3. Contact MD for PT/OT consult, if not already done 4. Provide patient/family education based on risk assessment using the HDS 5. Encourage patient/family to call staff for assistance when getting out of bed 6. Place GREEN fall precaution signage outside the patient door Outcome: Progressing Problem: Pain - Adult Goal: [...] interventions unsuccessful or patient reports new pain Outcome: Progressing Problem: Infection - Adult Goal: [...] isolation precautions for identified infection/condition Outcome: Progressing CH LENDING MANAGER Consult Follow-up - HILLARY Mendoza - 04/16/2020 11:19 AM CST Assistant Community Director obtained Patient's Shelter Facility choices of [facility], [facility], and [facility]. Referrals made to each through edischarge. CH LENDING MANAGER Plan of Care - HILLARY Mendoza - 04/16/2020 11:17 AM CST Problem: Discharge Planning - Care Management Goal: [...] appropriate transportation to post-acute venues. Outcome: Progressing CH LENDING MANAGER Consult Follow-up - HILLARY Mendoza - 04/16/2020 11:15 AM CST 04/16/20 1100 Portal of Entry Patient Arrival/Portal of Entry (Multiselect) Scheduled Admission Information Source Information source Patient Unable to obtain information due to Other (comment) Payor Payor Source Medicare;Commercial /Private Payor correct at admission Yes Drug coverage Yes Patient Information- Current Assessment Education Level Grade 12+ Home Services Patient Already Has None Primary Caregiver Self Concrete Polisher Phone Number daughter-Cammy Mills [phone] and son-Shekhar Doran [phone] Primary Care Information Primary Care Physician's Name Dr[facility] Anabel[facility] Activities of Daily Living- Prior to Admission Assistive Device/Equipment Bedside commode;Rolling Walker;Wheelchair;Other (Comment) (wc with elr) Living Arrangement Lives alone Ambulation Independent Dressing Independent Feeding Independent Behavior Oriented Communication Can write;Talks;Understands speaking;Understands Burkinan;Reads Anticipated Discharge Needs Expected Discharge Date 04/19/20 Anticipated Discharge Plan/ Needs Swing Bed Assistive Device/Equipment needed at DC Not applicable Obstacles/Barriers to Discharge Illness Mode of transportation for discharge Other(comment) (tbd) Who will accompany Patient at Discharge Family or Friend Family or Friend Name to be determined Who will take care of patient after discharge? accepting SNF Legal Information Advance Directives no Advance Directives Status Pt. declined information Social/Physiological Information Employment Status Unemployed Disability Benefits SSD Chemical Dependency History Current Use Denies Previous Treatment No Psychiatric History Previous Treatment Yes Current Outpatient Treatment Yes;Name of provider (Dr. Ladan Brown for severe depression and anxiety .) Abuse Risk Assessment Current Abuse None History of Abuse None Referral To Financial Resources Other (Comment) Community Resources Other (Comment) Psychological/Emotional Status Inotrope Therapy? No Antepartum/ Antepartum/ No Patient reported a history of Thoughts of Suicide. This was shared with RAFAEL Vidal. CH LENDING MANAGER Plan of Care - Gilbert Boone OTR/L - 04/16/2020 9:45 AM CST Problem: Occupational Therapy - Adult Goal: By Discharge: Performs self-care activities at highest level of function for planned dischargesetting. See evaluation for individualized goals. Flowsheets (Taken 04/16/2020 6629) OT Discharge Recommendations: Placement for continued skilled OT services Assessment Comments: Pt seen for initial OT eval this date. Pt required Mod A of 2 persons for supine to sit at EOB with cueing for posterior hip precautions. Pt required Min A of 2 persons for sit to stand using RW. Pt requires assist with ADLs. OT recommends placement for continued therapy services.OT to continue to follow and assess pt to address functional deficits and increase independence. Duration of Therapy: Ongoing therapy 1-5x/week CH LENDING MANAGER Plan of Care - Belia Moe DPT - 04/16/2020 9:44 AM CST Problem: Physical Therapy - Adult Goal: By Discharge: Performs mobility at highest level of function for planned discharge setting. See evaluation for individualized goals. Flowsheets (Taken 04/16/2020 1961) Discharge Recommendations: Placement for continued skilled PT services Equipment Recommendations: To be determined at next level of care Assessment Comments: The patient participated in PT evaluation well. The patient was educated on R LE posterior hip precautions, patient verbalized understanding. The patient required Mod A x 2 for supine to sit. The patient required Max A x 2 for sit to supine. The patient required Min A x 2 for sit to stand transfers with use of bariatric RW. The patient required Min A x 2 with bariatric RW in order to take side steps at the edge of the bed. The patient fatigues quickly with mobility task, howeverrecovers well with seated rest breaks. The patient was able to complete therapy session without incident. The patient will benefit from continued skilled PT in order to improve deficits and maximize independence and safety with functional mobility. Will continue to progress the patient as appropriate. Duration of Therapy: Continue skilled therapy to address identified problems, as per Plan of Care. Ongoing therapy 3-5x/week CH LENDING MANAGER Plan of Care - Magnolia Arnold RN - 04/15/2020 7:36 PM CST Problem: Harmeet At Risk (score 15-18) Goal: [...] or lower unless otherwise indicated by MD cemetery counselor 5. Manage moisture, nutrition, and friction and shear 6. Use pressure reduction device if bed or chair bound Outcome: Progressing Problem: Harmeet Moderate Risk(Score 12-14) [...] or lower unless otherwise indicated by MD cemetery counselor 5. Keep individual off trochanter (hip) or wound with positioning of 30 degrees or below 6. Manage moisture, nutrition, and friction and shear 7. Use pressure reduction device if bed or chair bound 8. DO NOT massage bony prominences Outcome: Progressing Problem: Adult Fall Risk and Urania Fall Precautions Goal: Fall risk and related [...] patient to make position changes slowly. 7. Richardson patients to their bed areas, unit facilities, and how to get assistance. 8. Educate patient and family regarding the armband procedure. Instruct patient & family about fall prevention measures to use at home. 9. Patient education materials to be given to patient and family. Outcome: Progressing Goal: Urania Fall Precautions (all patients) Description: INTERVENTIONS: 1. Call light/belongings in reach 2. Bed in low position and locked 3. Wheelchairs and chairs locked 4. Non-slip footwear 5. Siderails up x 2 6. Adequate lighting, clutter free room Outcome: Progressing Problem: HDS Fall Risk Goal: Low Risk (HDS score 7-10) Description: INTERVENTIONS: 1. Initiate universal fall precautions (UFPs) and individualize fall protocol 2. Place yellow FALL RISK patient ID band on patient 3. Contact MD for PT/OT consult, if not already done 4. Provide patient/family education based on risk assessment using the HDS 5. Encourage patient/family to call staff for assistance when getting out of bed 6. Place GREEN fall precaution signage outside the patient door Outcome: Progressing Goal: Moderate Risk (HDS score 11-14) Description: INTERVENTIONS: 1. Follow Urania Fall Precautions 2. Place yellow FALL RISK patient ID band on patient 3. Contact MD for PT/OT consult, if not already done 4. Provide patient/family education based on risk assessment using the HDS 5. Encourage patient/family to call staff for assistance when getting out of bed 6. Consider placing fall mats on one or both sides of bed and ensure correct placement with each assessment 7. Consider using a fall alarm device and ensure batteries are engaged with each assessment 8. Consider placing patient in a room closer to the nursing station if available 9. If using fall alarms for bed, patient should have alarm when OOB in chair or during transport. Fall alarms should always be connected to the call light unless the patient is transporting 10. Place YELLOW fall precaution signage outside the patient door Outcome: Progressing Goal: Urania High Risk Precautions sedated/comatose patients in ICU Description: INTERVENTIONS: 1. Bed in low position. 2. Side rails up x4. Check box for comatose/sedated patient. 3. Fall matting for patients with intermittent arousal. 4. Foam wedges/pillows between mattress and railing when appropriate, I.e. weaning and for extra padding. 5. Observation when not at bedside. 6. Collaboration with primary caregiver to sit/observe. 7. Ensure ancillary personnel aware of high risk and place proper signage (RED) at room. Outcome: Progressing Problem: Pain - Adult Goal: [...] interventions unsuccessful or patient reports new pain Outcome: Progressing Problem: Infection - Adult Goal: [...] isolation precautions for identified infection/condition Outcome: Progressing CH LENDING MANAGER Plan of Care - Daniela Webber RN - 04/15/2020 7:35 PM CST Problem: Adult Fall Risk and Urania Fall Precautions Goal: Fall risk and related [...] patient to make position changes slowly. 7. Richardson patients to their bed areas, unit facilities, and how to get assistance. 8. Educate patient and family regarding the armband procedure. Instruct patient & family about fall prevention measures to use at home. 9. Patient education materials to be given to patient and family. Outcome: Progressing Goal: Urania Fall Precautions (all patients) Description: INTERVENTIONS: 1. Call light/belongings in reach 2. Bed in low position and locked 3. Wheelchairs and chairs locked 4. Non-slip footwear 5. Siderails up x 2 6. Adequate lighting, clutter free room Outcome: Progressing Problem: Pain - Adult Goal: [...] interventions unsuccessful or patient reports new pain Outcome: Progressing CH LENDING MANAGER Plan of Care - Magnolia Arnold RN - 04/15/2020 7:21 PM CST ND notified of wound vac leakage stated would come back to floor in a few min. And check on it, CH LENDING MANAGER Op Note - Kasey Hassan MD - 04/15/2020 2:34 PM CST Procedure Note Date of Surgery: 04/15/2020 Pre-Op Diagnosis Codes: 1. Periprosthetic fracture right femur with nonunion [S72.8X1A] 2. 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 Morbid obesity with BMI 47 [E66.01, Z68.42] 4. History of inflammatory breast cancer [C50.919] Post-Op Diagnosis Codes: Same Indication for Surgery: femur fracture around total joint with nonunion, pain, inability to ambulate; concern for infection Procedure(s): 1. Incisional biopsy right femur periprosthetic fracture, CPT Code 86293 2. Resection right proximal femur for infection/necrotic bone, CPT Code 82364 3. Revision right total hip to constrained proximal femur replacement, CPT Code 38174, 22 modifier 4. Complex soft tissue rearrangement to salvage greater troch sling and fixation to implant with gluteus medius mobilization, CPT Code 76348 5. Placement of antibiotic drug delivery device (coat implant in antibiotic cement), CPT Code 32638 Anesthesia: General Endotracheal Anesthetic Surgeon(s) and Role: * Kasey Hassan MD - Primary Surgical Staff: Director Critical Care: Melanie Gupta RN; Cinthya Ritchie RN Relief Scrub: Jillian Vallejo Detective Sergeant: Sachi Bartholomew Manufacturing Weaver: Angel Arauz MD Implant(s): see below Specimen(s): ID Type Source Tests Collected by Time 1 : right hip fluid Tissue Hip, Right ANAEROBIC CULTURE, FUNGUS CULTURE, DEEP WOUND/TISSUE CULTURE W/ STAIN, AFB CULTURE W/ STAIN Kasey Hassan MD 04/15/2020 0902 2 : right hip socket Tissue Hip, Right ANAEROBIC CULTURE, FUNGUS CULTURE, DEEP WOUND/TISSUE CULTURE W/ STAIN, AFB CULTURE W/ STAIN Kasey Hassan MD 04/15/2020 0931 3 : right femoral canal Tissue Femur, Right ANAEROBIC CULTURE, FUNGUS CULTURE, DEEP WOUND/TISSUE CULTURE W/ STAIN, AFB CULTURE W/ STAIN Kasey Hassan MD 04/15/2020 1021 A : Right Hip Tissue Hip, Right SURGICAL PATHOLOGY SPECIMEN Kasey Hassan MD 04/15/2020 0907 B : Right Hip #2 Tissue Hip, Right SURGICAL PATHOLOGY SPECIMEN Kasey Hassan MD 04/15/2020 0911 C : right femur Tissue Femur, Right SURGICAL PATHOLOGY SPECIMEN Kasey Hassan MD 04/15/2020 1000 Estimated Blood Loss: 1 liter Wound Classification: 1-Clean , 1-Clean IV Fluids: See Anesthesia Record, 1 u PRBC Condition: stable Complications: None DATE OF SURGERY: 04/15/2020 PREOPERATIVE DIAGNOSIS: 1. Periprosthetic fracture right femur with nonunion [S72.8X1A] 2. 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 Morbid obesity with BMI 47 [E66.01, Z68.42] 4. History of inflammatory breast cancer [C50.919] POSTOPERATIVE DIAGNOSIS: Same PROCEDURE: 1. Incisional biopsy right femur periprosthetic fracture, CPT Code 49503 2. Resection right proximal femur for infection/necrotic bone, CPT Code 18083 3. Revision right total hip to constrained proximal femur replacement, CPT Code 08645, 22 modifier 4. Complex soft tissue rearrangement to salvage greater troch sling and fixation to implant with gluteus medius mobilization, CPT Code 29653 5. Placement of antibiotic drug delivery device (coat implant in antibiotic cement), CPT Code 64800 SURGEON: Kasey Hassan MD - Orthopaedic Oncology RESIDENT: Angel Arauz MD - Orthopaedic Resident ANESTHESIA TYPE: General Endotracheal Anesthetic EBL: 1,000 cc IVF: see anesthesia reconrd, 1 units PRBC UOP: See anesthesia record IMPLANTS: DEPUY: 1. DePuy LPS Femoral Stem: straight cemented; 12 mm x 100 mm 2. DePuy LPS Proximal Femoral Standard Body 15 degree (implanted and explanted), neutral 3. DePuy LPS Segmental Component: 65 mm, 45 mm 4. DePuy BIOLOX delta Femoral Head: 32 mm, +5, 12/14 taper 5. DePuy Elma GVF poly constrained acetabular liner: +4 neutral: 32 mm ID,54 mm OD 6. Smart set GV 40g x 2 for femur 7. 2 bags Palacos cement mixed itwh 2 g ancef and 2.4 g tobra assembled on the body of the implant. PATHOLOGY: FROZEN SECTIONS: soft tissue from right hip and right femur periprosthetic area was sent for frozen section labeled and returned within 30 minuets as no sign of acute inflammation or osteomyelitis. FINAL PATHOLOGY: Right Proximal Femur Resection. MICRO: 1. Fluid from right hip joint and periprosthetic fracture area sent for ortho culture set 2. Tissue from right hip joint deep sent for ortho culture set 3. Tissue from right distal femur canal sent for ortho tissue culture set DRAINS: 1 #19 deep and 1 size 15 fully superficial fluted hubless kristan drain, sewn into skin in line with the incision distally FINDINGS: lesser troch, proximal femur medially and laterally. Greater troch alive and salvaged. No purulence. Clear serosanguinous joint fluid. Metalosis. Well fixed stem distally COMPLICATIONS: None COUNTS: All sponge and needle counts were correct at cessation of procedure JUSTIFICATION FOR USE OF 22 MODIFIER: 1. Increased amount of operative time compared to a standard hip replacement secondary to morbid obesity body habitus and dissection time to get to the hip which takes at least 1 hour longer for dissection and closure than a standard body habitus. 2. Increased amount of blood loss and morbidity and prolonged length of stay compared to standard total hip due to morbidity. 3. Greater number of OR personal for retracting and instrumentation. 4. Increased complexity of implant placement due to large bone defect and soft tissue rearrangement to reconstruct remaining hip musculature. 5. The increased work in the OR is cindy to the add on code for osteoarticular allograft CPT code 29896 which increases reimbursement 18-31% from standard revision total hip INDICATIONS FOR THE PROCEDURE: Sarah Doran is a 64 y.o. female who has a history of inflammatorybreast cancer diagnosed and treated in 2010 with no known metastatic disease. She was treated with surgery locally and chemo. She never had radiation. She is on surveillance with tumor markers by Dr. Clemons. She had a right total hip replacement by Dr. Jordan 06/14/2019 and subsequently fell and had a periprosthetic femur fracture that was revised to a reclaim stem on 08/22/2019. She never had any infection symptoms and was doing well until she went onto nonunion with bone resorption and was sent to my partner for evaluation and ORIF. He subsequently thought she was infected and sent her to me for resection and revision to PFR with spacer. Her inflammatory markers were mildly elevated and she was sent for an aspiration which revealed a dry tap. We have discussed all of the risks, benefits and alternatives to surgical intervention. Proposed alternatives include amputation and no surgical management. Sarah Doran and her family has declined alternative surgical interventions and have elected for proximal femur resection and modular oncologic proximal femoral reconstruction with antibiotic cement coating to act like a spacer. The risks of this procedure include but are not limited to: bleeding, need for blood transfusions, infection, scar,pain, need for future surgery for infection or revision status, chance of damage to the superficial f emoral or profunda femoral artery that could necessitate vascular reconstruction, damage to femoral or sciatic nerve which may be permanent, permanent muscular weakness, chance of local infection recurrence or discovery of metastatic breast ca to bone that may require revision surgery, implant complications, hip dislocation, limb length inequality, anesthesia risks, heart attack, DVT, PE, stroke, . Sarah Doran and her family understands these risks and wish to proceed. PROCEDURE IN DETAIL: The patient was interviewed and identified in the preoperative holding area. The history and physical exam were updated. The correct extremity was identified and marked. Consent was verified. She was then taken back to [facility] [place] and placed in supine position on the operating room table. General endotracheal anesthetic was induced by the anesthesia provider without difficulty. She was then positioned in the lateral decubitus position with an axillary roll and all bony prominences were well padded. The right lower extremity was pre cleaned with chlorhexidine and washed with alcohol and was then prepped and draped in the standard sterile forequarter fashion. A time out was performed in which the correct patient, correct site, correct procedure, correct imaging and allergies were identified. It was verified that the patient had received the appropriate amount of preoperative antibiotic greater than 30 min prior to start of the procedure. We verified the anticipated blood loss and blood product availability. We defined the need for re-dosing of IV antibiotics every 3 hours or every 300 cc of blood loss. Implant availability and product representation was also assessed. We discussed intraoperative medical needs and perioperative medical management. The old incision was posterior to the femur. It was utilized and extended proximal and distal. The dissection in the fat layer was carried anteriorly to make the incision in the IT band at the desired area on the posterior 1/3 of the incision. Dissection was carried out with cautery through the soft tissue envelope. The IT band and muscle fascia was incised, fibers were longitudinally divided and thegreater troch fragment was mobilized with a sling of vastus lateralis which was elevated from posterior to anterior. The joint fluid was taken for culture. There was a lot of synovitis and metalosis from broken cables. The cables were removed. 2 sites of tissue along the periprosthetic area were sampled for frozen section to determine if active osteomyelitis or infection was present and it was calledback into the room no evidence of active infection. The bone fragments (lesser and shaft) aside fromthe greater troch were . The proximal 10 cm of femur were resected from the wound bed and sent to [facility] for fresh specimen. The implant was found to be well fixed into the distal femur. Guide wires were used to free up the stem along its splines and it was back slapped out. The femur was then transected at the level determined to be live bone. The entire wound bed thick heavy rind and synovits was excised and culture tissue sent. The multiplemetal fragments were removed. Dissection carried circumferentially around the femur. The iliopsoas was cut from the lesser troch fragment and tagged for later approximation. Attention was then directed to reconstruction. The acetabular liner was then removed. The proximal femur canal was prepared using the straight reamers to accomodates the cemented fit stem. I reamed up to a 14 mm for a 12mm stem with 1 cm cement. The trial prosthesis was built according to the amount of femur removed. It was adjusted accordinglyfor stability and fit. The version of the implant was marked on the femur. There was the appropriateamount of shuck. 3 liters of irrigation was ran through the wound bed. The final implants as noted above were chosen and opened and assembled on the back table. The femur stem was cemented into the canal using 3rd generation technique. The assembled segmental components to the proximal femur component was fit onto thefemoral stem. The acetabular constrained liner was placed. The ring was not engaged to allow for trial. The head was placed and the hip was reduced. At this time the soft tissue tension was found to beappropriate, the sciatic nerve was not felt to be under undue tension. The final implant was taken through a full range of motion and the patient had excellent stability and was able to be internally ro tated to a position of rest at approximated 80 degrees for subluxation. At 90 degrees of flexion,wasable to be internally rotated approximately 80 degrees however she had limited external rotation with impingement posteriorly and this was felt to be secondary to my version with cementing and therefore I disengaged the 15deg anteversion body and placed a neutral. It greatly increased her ability to externally rotate without instability with hip flexion and ER. The hip was dislocated, the antibiotic cement was mixed with ancef and tobra and placed onto the body of the implant (after placing bone waxat the junctions). It cured. The locking ring was then placed and the hip was again reduced. The lock ing ring was placed on the constrained liner and found to be down and secure circumferentially. A 50% diluted betadine soak was performed for 5 minutes. The wound was thoroughly irrigated with 6 liters of pulsatile lavage saline solution. Hemostasis was once again obtained using cautery. One deepdrains and one fat layer drain was placed and brought out proximal in line with the incision. The psoas tendon was sewn to the implant with Ethibond. The gluteus medius sling onto the vastus lateralis with the greater troch was assembled onto the implant via Ethibond suture through drill holes after fitting it with a garrett. Replication of soft tissue back to their closest to normal orientation was pe rformed. A layered muscular closure was performed with Ethibond suture, followed by deep quill on the IT band and closure of the subcu with 2-0 Monocryl and bing for the skin. An incisional wound vac was placed. She was then awoken from general anesthetic and transferred to the post anesthesia careunit in stable condition. Postoperative Plan: 1. Physical Therapy: Weight bear as tolerated right lower extremity, 90 degree posterior hip precautions 2. IV antibiotics while drains remain in place, drains to remain in place until nearly dry. 3. Adequate pain control with a pain service consult if necessary 4. Check hemoglobin and hematocrit and transfuse as appropriate 5. Await final pathology and cultures CH LENDING MANAGER documented in this encounter Plan of Treatment Upcoming Encounters Date Type Specialty Care Team Description 03/11/2022 Office Visit Orthopaedics Kasey Hassan MD [address], [place] [address] (Wo rk) Scheduled Referrals Name Type Priority Associated Diagnoses Order S chedule REFERRAL/DISCHARG Outpatient Referral Routine Other fracture o f Ordered: E FOLLOW UP right femur, initial 020 encounter for closed fracture (HCC) Failure of right total hip arthroplasty, initial encounter (HCC) documented as of this encounter Procedures Procedure Name Priority Date/Time Associated Comments Diagnosis POCT GLUCOSE Routine 04/18/2020 11:00 Results for this (FINGERSTICK) AM BRANCH LENDING MANAGER procedure are in the results section. HEMOGLOBIN AND Routine 04/18/2020 5:15 AM Results for this HEMATOCRIT, BLOOD BR[employer]CH LENDING MANAGER procedure are in the results section. POCT GLUCOSE Routine 04/18/2020 4:44 AM Results f or this (FINGERSTICK) BRANCH LENDING MANAGER procedure are in the results section. POCT GLUCOSE Routine 04/17/2020 8:56 PM Results f or this (FINGERSTICK) BRANCH LENDING MANAGER procedure are in the results section. POCT GLUCOSE Routine 04/17/2020 3:59 PM Results f or this (FINGERSTICK) BRANCH LENDING MANAGER procedure are in the results section. VANCOMYCIN, TROUGH Routine 04/17/2020 11:43 Resul ts for this AM BRANCH LENDING MANAGER procedure are i n the results section. POCT GLUCOSE Routine 04/17/2020 10:49 Results for this (FINGERSTICK) AM BRANCH LENDING MANAGER procedure are in the results section. ADULT VASC ACCESS Routine 04/17/2020 9:14 AM Resu lts for this ULTRASOUND BR[employer]CH LENDING MANAGER procedure are i n the results section. SARS-COV-2 RNA PANEL Routine 04/17/2020 8:37 AM R esults for this BY RT-PCR BRANCH LENDING MANAGER procedure are i n the results section. XR CHEST 1 VIEW Routine 04/17/2020 8:36 AM Other fracture of R esults for this BRANCH LENDING MANAGER right femur, procedure are i n initial encounter the result s for closed fracture section. (HCC) POCT GLUCOSE Routine 04/17/2020 6:10 AM Results f or this (FINGERSTICK) BRANCH LENDING MANAGER procedure are in the results section. CBC Routine 04/17/2020 4:58 AM Results f or this BRANCH LENDING MANAGER procedure are i n the results section. BASIC METABOLIC PANEL Routine 04/17/2020 4:58 AM Results for this BRANCH LENDING MANAGER procedure are i n the results section. CROSSMATCH PREPARE Routine 04/17/2020 1:00 AM Res ults for this LEUKO RBCS BR[employer]CH LENDING MANAGER procedure are i n the results section. POCT GLUCOSE Routine 04/16/2020 8:30 PM Results f or this (FINGERSTICK) BRANCH LENDING MANAGER procedure are in the results section. POCT GLUCOSE Routine 04/16/2020 6:15 PM Results f or this (FINGERSTICK) BRANCH LENDING MANAGER procedure are in the results section. POCT GLUCOSE Routine 04/16/2020 11:12 Results for this (FINGERSTICK) AM BRANCH LENDING MANAGER procedure are in the results section. POCT GLUCOSE Routine 04/16/2020 6:31 AM Results f or this (FINGERSTICK) BRANCH LENDING MANAGER procedure are in the results section. CBC Routine 04/16/2020 4:35 AM Results f or this BRANCH LENDING MANAGER procedure are i n the results section. BASIC METABOLIC PANEL Routine 04/16/2020 4:35 AM Results for this BRANCH LENDING MANAGER procedure are i n the results section. POCT GLUCOSE Routine 04/15/2020 10:57 Results for this (FINGERSTICK) PM BRANCH LENDING MANAGER procedure are in the results section. XR HIP WWO PELVIS Expedited 04/15/2020 6:14 PM Other fracture of Results for this RIGHT 2 OR 3 VIEWS BR[employer]CH LENDING MANAGER right femur, procedure are in initial encounter the result s for closed fracture section. (HCC) XR FEMUR RIGHT MIN 2 Expedited 04/15/2020 6:14 PM Other fracture of Results for this VIEWS BRANCH LENDING MANAGER right femur, procedure are i n initial encounter the result s for closed fracture section. (HCC) HEMATOCRIT Routine 04/15/2020 3:30 PM Results f or this BRANCH LENDING MANAGER procedure are i n the results section. ANES PERFORMED US Routine 04/15/2020 2:28 PM Resu lts for this REGIONAL/INVASIVE BRANCH LENDING MANAGER procedure are in the results section. XR PELVIS 1 OR 2 Routine 04/15/2020 1:22 PM Other fracture of Results for this VIEWS BRANCH LENDING MANAGER right femur, procedure are i n initial encounter the result s for closed fracture section. (HCC) HC HEMOGLOBIN Routine 04/15/2020 1:15 PM Results for this BRANCH LENDING MANAGER procedure are i n the results section. TRANSFUSE RED BLOOD Routine 04/15/2020 11:23 CELLS (IN ML) AM BRANCH LENDING MANAGER AFB CULTURE W/ STAIN Routine 04/15/2020 10:21 Other fracture o f Results for this AM BRANCH LENDING MANAGER right femur, procedure are i n initial encounter the result s for closed fracture section. (HCC) DEEP WOUND/TISSUE Routine 04/15/2020 10:21 Other fracture of R esults for this CULTURE W/ STAIN AM BRANCH LENDING MANAGER right femur, procedure a re in initial encounter the result s for closed fracture section. (HCC) FUNGUS CULTURE Routine 04/15/2020 10:21 Other fracture of Resu lts for this AM BRANCH LENDING MANAGER right femur, procedure are i n initial encounter the result s for closed fracture section. (HCC) ANAEROBIC CULTURE Routine 04/15/2020 10:21 Other fracture of R esults for this AM BRANCH LENDING MANAGER right femur, procedure are i n initial encounter the result s for closed fracture section. (HCC) AFB CULTURE W/ STAIN Routine 04/15/2020 9:31 AM Other fracture of Results for this BRANCH LENDING MANAGER right femur, procedure are i n initial encounter the result s for closed fracture section. ([facility]) DEEP WOUND/TISSUE Routine 04/15/2020 9:31 AM Other fracture of Results for this CULTURE W/ STAIN BRANCH LENDING MANAGER right femur, procedure a re in initial encounter the result s for closed fracture section. ([facility]) FUNGUS CULTURE Routine 04/15/2020 9:31 AM Other fracture of Re sults for this BRANCH LENDING MANAGER right femur, procedure are i n initial encounter the result s for closed fracture section. ([facility]) ANAEROBIC CULTURE Routine 04/15/2020 9:31 AM Other fracture of Results for this BRANCH LENDING MANAGER right femur, procedure are i n initial encounter the result s for closed fracture section. ([facility]) CONFIRMATORY ABORH Routine 04/15/2020 9:28 AM Res ults for this BRANCH LENDING MANAGER procedure are i n the results section. HC CORTNEY TEST Routine 04/15/2020 9:26 AM Results for this INDIRECT QUAL BR[employer]CH LENDING MANAGER procedure are in the results section. SURGICAL PATHOLOGY Routine 04/15/2020 9:07 AM Other fracture o f Results for this SPECIMEN BRANCH LENDING MANAGER right femur, procedure are i n initial encounter the result s for closed fracture section. ([facility]) AFB CULTURE W/ STAIN Routine 04/15/2020 9:02 AM Other fracture of Results for this BRANCH LENDING MANAGER right femur, procedure are i n initial encounter the result s for closed fracture section. ([facility]) DEEP WOUND/TISSUE Routine 04/15/2020 9:02 AM Other fracture of Results for this CULTURE W/ STAIN BRANCH LENDING MANAGER right femur, procedure a re in initial encounter the result s for closed fracture section. ([facility]) FUNGUS CULTURE Routine 04/15/2020 9:02 AM Other fracture of Re sults for this BRANCH LENDING MANAGER right femur, procedure are i n initial encounter the result s for closed fracture section. ([facility]) ANAEROBIC CULTURE Routine 04/15/2020 9:02 AM Other fracture of Results for this BRANCH LENDING MANAGER right femur, procedure are i n initial encounter the result s for closed fracture section. ([facility]) INSERTION ANTIBIOTIC 04/15/2020 7:13 AM Other fracture of BEADS/SPACERS HIP BRANCH LENDING MANAGER right femur, initial encounter for closed fracture ([facility]) Special Needs LATERAL ON REGULAR TABLE, WI XON, DEPUY BRIAN ALBERTO WILL ARRIVE AT 0600 REVISE TOTAL HIP 04/15/2020 7:13 AM BRANCH LENDING MANAGER Other fracture of right femur, initial encounter for closed fractur e (HCC) Special Needs LATERAL ON REGULAR TABLE, WI XON, DEPUY BRIAN VALADEZPT WILL ARRIVE AT 0600 POCT GLUCOSE (FINGERSTICK) Routine 04/15/2020 6:55 AM BRANCH LENDING MANAGER Results for this procedure are i n the results section . documented in this encounter Results (ABNORMAL) POCT GLUCOSE(FINGERSTICK)-Interfaced (04/18/2020 11:00 AM BRANCH LENDING MANAGER)Only the most recent of12 resultswithin the time period is included. Patholo gist Method Time Signature POCT 234 (H) 74 - 106 04/18/2020 [facility] FINGERSTICK mg/dL 11:12 AM BRANCH LENDING MANAGER DEPARTMENT OF GLUCOSE PATHOLOGY POCT PERFORMED Regeneration Operator Id: 04/18/2020 [facility] [place] [id number] - 11:12 AM BRANCH LENDING MANAGER DEPARTMENT OF [place], PATHOLOGY [place] Specimen Anatomical Collection Method Collection Time Receive d Time (Source) Location / / Volume Laterality Blood 04/18/2020 11:00 04/18/2020 AM BRANCH LENDING MANAGER 11:12 AM BRANCH LENDING MANAGER Kasey Hassan MD POCT ORDERABLES - INTERFACED Performing Organization Address City/State/ZIP Code Phon e Number [facility] DEPARTMENT OF PATHOLOGY [address] [place] [address] Street (ABNORMAL) Hemoglobin and hematocrit, blood (04/18/2020 5:15 AM BRANCH LENDING MANAGER) P athologist Signature Hemoglobin 7.9 (L) 12.0 - 04/18/2020 [facility] DEPARTMENT 15.0 g/dL 6:09 AM BRANCH LENDING MANAGER OF PATHOLOGY Hematocrit 26.3 (L) 36.0 - 04/18/2020 [facility] DEPARTMENT 46.0 % 6:09 AM BRANCH LENDING MANAGER OF PATHOLOGY Specimen Anatomical Collection Method / Collection Time Recei jackelyn Time (Source) Location / Volume Laterality Blood Lab Venipuncture / 04/18/2020 5:15 2019 5:45 Unknown AM BRANCH LENDING MANAGER AM BRANCH LENDING MANAGER Narrative [facility] DEPARTMENT OF PATHOLOGY - 0 6:09 AM BRANCH LENDING MANAGER If the anticoagulant ratio is incorrect when colleting an EDTA specimen, the hematocrit, mean cell volume (MCV), and mean corpuscular hemoglobin concentration (MCHC) may be inaccurate. ??It is recomm ended to fill the tube to the stated tube volume by vacutainer method. Kerrie Vidal SPOUT LINER HELPER LAB BLOOD ORDERABLES Performing Organization Address City/[facility]/ZIP Code Phon e Number [facility] DEPARTMENT OF PATHOLOGY [address] [place] [address] Street (ABNORMAL) Vancomycin, trough (04/17/2020 11:43 AM BRANCH LENDING MANAGER) Patholo gist Method Time Signature Vancomycin 9.6 (L) 10.0 - 04/17/2020 [facility] Trough 20.0 12:23 PM BRANCH LENDING MANAGER DEPARTMENT OF mcg/mL PATHOLOGY Vancomycin Tr 04/16/2020 04/17/2020 [facility] Dose Dt 12:23 PM BRANCH LENDING MANAGER DEPARTMENT OF PATHOLOGY Vancomycin Tr 6:49 PM 04/17/2020 [facility] Dose Tm 12:23 PM BRANCH LENDING MANAGER DEPARTMENT OF PATHOLOGY VANC TROUGH 2,000.0 mg 04/17/2020 [facility] DOSAGE 12:23 PM BRANCH LENDING MANAGER DEPARTMENT OF PATHOLOGY Specimen Anatomical Collection Method / Collection Time Recei jackelyn Time (Source) Location / Volume Laterality Blood Non-lab 04/17/2020 11:43 04/17/2020 Venipuncture / AM BRANCH LENDING MANAGER 11:48 AM BRANCH LENDING MANAGER Unknown Narrative [facility] DEPARTMENT OF PATHOLOGY - 0 12:23 PM BRANCH LENDING MANAGER A higher trough level (15-20 ug/mL) is i ndicated for certain infections (Pneumonia, Bacteremia, Endocarditis, Osteomyelitis, Meningitis, Empiric Bacterial Meningitis, and Hardware Infections). Kasey Dinero PharmD LAB BLOOD ORDERABLES Performing Organization Address [facility]/ZIP Code Phon e Number [facility] DEPARTMENT OF PATHOLOGY [address] [place] [address] [place] ADULT VASC ACCESS ULTRASOUND (04/17/2020 9:14 AM BRANCH LENDING MANAGER) Specimen (Source) Anatomical Location Collection Method / Collectio n Time Received Time / Laterality Volume Narrative Radiology, Silent Booth Operator - 04/17/2020 9:14 AM BRANCH LENDING MANAGER Ultrasound images obtained for archiving purposes only. ?? Kasey Hassan MD [facility] SARS-CoV-2 RNA Panel by RT-PCR (04/17/2020 8:37 AM BRANCH LENDING MANAGER) Analysis Performed At Patho logist Time Signature SARS-CoV-2 Not Not MD DORADO 04/17/2020 [facility] PCR Detected Detected 1999 9:34 PM BRANCH LENDING MANAGER DEPARTMENT OF INSTRUMENT PATHOLOGY Comment: The detection of SARS-CoV-2 RNA may be a ffected by variations in specimen collection techniques, patient factors (e.g. presence of symptoms) and/or stage of infection. Therefore, a negative test result does not conclusively rule out disease. Specimen (Source) Anatomical Location / Collection Collection Santiago e Received Time Laterality Method / Volume Respiratory NASOPHARYNGEAL Non-blood 04/17/2020 8:37 04/17/2020 STRUCTURE / Unknown collection / AM BRANCH LENDING MANAGER 8:48 AM BRANCH LENDING MANAGER Unknown Narrative [facility] DEPARTMENT OF PATHOLOGY - 0 9:34 PM BRANCH LENDING MANAGER SARS-CoV-2 is the virus responsible for COVID-19. This test has been authorized by the FDA under EUA for use by authorized laboratories. This test uses RT-PCR to detect the RdRp and N genes of the SARS-CoV-2 virus, and is sensitive to 100 RNA copies/mL in viral transport media. Kerrie Vidal SPOUT LINER HELPER MICROBIOLOGY - GENERAL ORDER BABAK Performing Organization Address City/State/ZIP Code Phon e Number [facility] DEPARTMENT OF PATHOLOGY [address] [place] [address] [place] XR Chest 1 View (04/17/2020 8:36 AM BRANCH LENDING MANAGER) Anatomical Region Laterality Modality Chest Computed Radiography Specimen (Source) Anatomical Collection Method Collection Time Re ceived Time Location / / Volume Laterality 04/17/2020 8:52 AM BRANCH LENDING MANAGER Impressions 04/17/2020 8:53 AM BRANCH LENDING MANAGER IMPRESSION: No acute cardiopulmonary process. ATTENDING RADIOLOGIST: Amber Simmons M.D., Ph.D. Narrative 04/17/2020 8:53 AM BRANCH LENDING MANAGER RADIOLOGIC EXAM: XR CHEST 1 VIEW DATE AND TIME OF EXAMINATION: 04/17/2020 8:07 AM CLINICAL HISTORY: ?? Other - swingbed pl acement ?? COMPARISON: None. TECHNIQUE: XR CHEST 1 VIEW FINDINGS: Single AP lordotic portable view of the chest was obtained. ??No pneumothorax. ?? The heart is normal in size. ??The lungs are clear. ??No acute bone or soft tissue abnormalities are identified. Procedure Note Amber Simmons MD - 04/17/2020 RADIOLOGIC EXAM: XR CHEST 1 VIEW DATE AND TIME OF EXAMINATION: 04/17/2020 8:07 AM CLINICAL HISTORY: Other - swingbed place ment COMPARISON: None. TECHNIQUE: XR CHEST 1 VIEW FINDINGS: Single AP lordotic portable view of the chest was obtained. No pneumothorax. The heart is normal in size. The lungs are clear. No acute bone or soft tissue abnormalities are identified. IMPRESSION: No acute cardiopulmonary process. ATTENDING RADIOLOGIST: Amber Simmons M.D., Ph.D. Kerrie Zamoranoock SPOUT LINER HELPER IMG DIAGNOSTIC IMAGING ORDER BABAK (ABNORMAL) Basic metabolic panel (04/17/2020 4:58 AM BRANCH LENDING MANAGER)Only the most recent of 2 resultswithin the time period is included. Analysis Performed At Patho logist Time Signature Sodium 132 (L) 136 - 145 04/17/2020 [facility] mmol/L 7:16 AM [facility] DEPARTMENT OF PATHOLOGY Potassium 4.5 3.4 - 4.5 04/17/2020 [facility] mmol/L 7:16 AM [facility] DEPARTMENT OF PATHOLOGY Chloride 96 (L) 98 - 107 04/17/2020 [facility] mmol/L 7:16 AM [facility] DEPARTMENT OF PATHOLOGY CO2 27 22 - 29 04/17/2020 [facility] mmol/L 7:16 AM [facility] DEPARTMENT OF PATHOLOGY Anion Gap 9.0 6.0 - 14.0 04/17/2020 [facility] mmol/L 7:16 AM [facility] DEPARTMENT OF PATHOLOGY BUN 23.0 8.0 - 23.0 04/17/2020 [facility] mg/dL 7:16 AM [facility] DEPARTMENT OF PATHOLOGY Calcium 7.3 (L) 8.6 - 10.2 04/17/2020 [facility] mg/dL 7:16 AM [facility] DEPARTMENT OF PATHOLOGY Glucose 210 (H) 74 - 106 04/17/2020 [facility] mg/dL 7:16 AM [facility] DEPARTMENT OF PATHOLOGY Creatinine 0.88 0.51 - 04/17/2020 [facility] Serum/WB 0.95 mg/dL 7:16 AM [facility] DEPARTMENT OF PATHOLOGY Comment: Elevated levels of N-acetylcyst eine and L-wvouqx-e-benzoquinone imine can cause falsely decreased values. eGFR (from >=60 ml/min/1.73m?? 04/17/2020 7:16 AM [facility] DEPARTMENT OF Creatinine) [facility] PATHOLOGY Specimen Anatomical Collection Method / Collection Time Recei jackelyn Time (Source) Location / Volume Laterality Blood Lab Venipuncture / 04/17/2020 4:58 2019 6:31 Unknown AM BRANCH LENDING MANAGER AM BRANCH LENDING MANAGER Narrative [facility] DEPARTMENT OF PATHOLOGY - 0 7:16 AM BRANCH LENDING MANAGER AVERAGE GFR FOR 60-69 YEARS OLD: 85 ml/min/1.73 m?? CHRONIC KIDNEY DISEASE: <60 ml/min/1.73 m?? KIDNEY FAILURE: <15 ml/min/1.73 m?? Calculated using the MDRD formula for ID MS-traceable methods. Kerrie Vidal NP LAB BLOOD ORDERABLES Performing Organization Address City/State/ZIP Code Phon e Number [facility] DEPARTMENT OF PATHOLOGY [address] [place] [address] [place] (ABNORMAL) CBC (04/17/2020 4:58 AM BRANCH LENDING MANAGER)Only the most recent of2 resultswithin the time period is included. [facility] gist Method Time Signature White Blood Cell 11.7 (H) 4.0 - 04/17/2020 [facility] Count 10.0 6:58 AM BRANCH LENDING MANAGER DEPARTMENT OF TH/[facility] PATHOLOGY Red Blood Cell 2.95 (L) 3.80 - 04/17/2020 [facility] Count 4.80 6:58 AM BRANCH LENDING MANAGER DEPARTMENT OF /c[facility] PATHOLOGY Hemoglobin 8.2 (L) 12.0 - 04/17/2020 [facility] 15.0 g/dL 6:58 AM BRANCH LENDING MANAGER DEPARTMENT OF PATHOLOGY Hematocrit 26.6 (L) 36.0 - 04/17/2020 [facility] 46.0 % 6:58 AM BRANCH LENDING MANAGER DEPARTMENT OF PATHOLOGY Mean Corpuscular 90.2 83.0 - 04/17/2020 [facility] Volume 101.0 fl 6:58 AM BRANCH LENDING MANAGER DEPARTMENT OF PATHOLOGY MCH 27.8 27.0 - 04/17/2020 [facility] 32.0 pg 6:58 AM BRANCH LENDING MANAGER DEPARTMENT OF PATHOLOGY Mean Corpuscular 30.8 (L) 31.5 - 04/17/2020 [facility] Hemoglobin Conc 34.5 g/dL 6:58 AM BRANCH LENDING MANAGER DEPARTMENT O F PATHOLOGY Red Cell 15.9 (H) 12.0 - 04/17/2020 [facility] Distribution 15.0 6:58 AM BRANCH LENDING MANAGER DEPARTMENT OF Width PATHOLOGY RDW - SD 52.3 (H) 36.4 - 04/17/2020 [facility] 46.3 fL 6:58 AM BRANCH LENDING MANAGER DEPARTMENT OF PATHOLOGY Platelet Count 166 150 - 400 04/17/2020 [facility] TH/cmm 6:58 AM BRANCH LENDING MANAGER DEPARTMENT OF PATHOLOGY Mean Platelet 11.1 9.4 - 04/17/2020 [facility] Volume 12.3 fl 6:58 AM BRANCH LENDING MANAGER DEPARTMENT OF PATHOLOGY Specimen Anatomical Collection Method / Collection Time Recei jackelyn Time (Source) Location / Volume Laterality Blood Lab Venipuncture / 04/17/2020 4:58 2019 6:32 Unknown AM BRANCH LENDING MANAGER AM BRANCH LENDING MANAGER Narrative [facility] DEPARTMENT OF PATHOLOGY - 0 6:58 AM BRANCH LENDING MANAGER If the anticoagulant ratio is incorrect when collecting an EDTA specimen, the hematocrit, mean cell volume (MCV), and mean corpuscular hemoglobin concentration (MCHC) may be inaccurate. ??It is recomm ended to fill the tube to the stated tube volume by vacutainer method. Kerrie Vidal SPOUT LINER HELPER LAB BLOOD ORDERABLES Performing Organization Address City/State/ZIP Code Phon e Number [facility] DEPARTMENT OF PATHOLOGY [address] [place] [address], [place] [address] [place] Crossmatch & Prepare Leuko RBC's (Units), 2 Units (04/17/2020 1:00 AM BRANCH LENDING MANAGER) [facility] gist Method Time Signature PRODUCT ID Red Blood Cells BLOOD BANK PRODUCTS CROSSMATCH Compatible BLOOD BANK RESULT PRODUCTS BPAM PROD BLD 6200 BLOOD BANK TYPE PRODUCTS PRODUCT BLD A Pos BLOOD BANK TYPE PRODUCTS PRODUCT UNIT # [id number] BLOOD BANK PRODUCTS Product Transfused BLOOD BANK Dispense PRODUCTS Status BBK UNIT INFO [id number] BLOOD BANK PRODUCTS PRODUCT CODE [id number] BLOOD BANK PRODUCTS BLOOD PROD [id number] BLOOD BANK CODING PRODUCTS PRODUCT ID Red Blood Cells BLOOD BANK PRODUCTS CROSSMATCH Compatible BLOOD BANK RESULT PRODUCTS BPAM PROD BLD 6200 BLOOD BANK TYPE PRODUCTS PRODUCT BLD A Pos BLOOD BANK TYPE PRODUCTS PRODUCT UNIT # [id number] BLOOD BANK PRODUCTS Product Released BLOOD BANK Dispense PRODUCTS Status BBK UNIT INFO [id number] BLOOD BANK PRODUCTS PRODUCT CODE [id number] BLOOD BANK PRODUCTS BLOOD PROD [id number] BLOOD BANK CODING PRODUCTS ISSUE [id number] BLOOD BANK DATE/TIME PRODUCTS Specimen (Source) Anatomical Collection Method Collection Time Re ceived Time Location / / Volume Laterality Blood 04/17/2020 1:00 AM BRANCH LENDING MANAGER Drew Boudreaux MD BLOOD BANK PRODUCT ORDERABLE S Performing Organization Address City/State/ZIP Code Phon e Number BLOOD BANK PRODUCTS XR Hip WWO Pelvis Right 2 or 3 Views (04/15/2020 6:14 PM BRANCH LENDING MANAGER) Anatomical Region Laterality Modality Hip, Pelvis Digital Radiography Specimen (Source) Anatomical Collection Method Collection Time Re ceived Time Location / / Volume Laterality 04/15/2020 6:18 PM BRANCH LENDING MANAGER Impressions 04/15/2020 6:19 PM BRANCH LENDING MANAGER IMPRESSION: 1. Recent right hip arthroplasty with hilario rgical drain placement overlying skin bing as detailed. 2. Small displaced bone fragment along t he cortex distal prosthesis. No definite fracture lines otherwise are demonstrated. ?? Attending Radiologist: Scott Chen M.D. 04/15/2020 6:18 PM Narrative 04/15/2020 6:19 PM BRANCH LENDING MANAGER RADIOLOGIC EXAM: XR HIP WWO PELVIS RIGHT 2 OR 3 VIEWS DATE AND TIME OF EXAMINATION: 04/15/2020 5:28 PM CLINICAL HISTORY: Post Op ?? COMPARISON: None. TECHNIQUE: XR HIP WWO PELVIS RIGHT 2 OR 3 VIEWS FINDINGS: Recent revision of total right hip arthr oplasty and proximal femur prosthesis. Surgical drain courses along the lateral aspect of the right femur. Small displaced bone fragment is noted along the medial cortex of the lower femur. No displaced fractures are demonstrated otherwise. Procedure Note Scott Chen MD - 04/15/2020Formatt ing of this note might be different from the original. RADIOLOGIC EXAM: XR HIP WWO PELVIS RIGHT 2 OR 3 VIEWS DATE AND TIME OF EXAMINATION: 04/15/2020 5:28 PM CLINICAL HISTORY: Post Op COMPARISON: None. TECHNIQUE: XR HIP WWO PELVIS RIGHT 2 OR 3 VIEWS FINDINGS: Recent revision of total right hip arthr oplasty and proximal femur prosthesis. Surgical drain courses along the lateral aspect of the right femur. Small displaced bone fragment is noted along the medial cortex of the lower femur. No displaced fractures are demonstrated otherwise. IMPRESSION: 1. Recent right hip arthroplasty with hilario rgical drain placement overlying skin bing as detailed. 2. Small displaced bone fragment along t he cortex distal prosthesis. No definite fracture lines otherwise are demonstrated. Attending Radiologist: Scott Chen M.D. 04/15/2020 6:18 PM Kasey Hassan MD [facility] DIAGNOSTIC IMAGING ORDER BABAK XR Femur Right Min 2 Views (04/15/2020 6:14 PM BRANCH LENDING MANAGER) Anatomical Region Laterality Modality Thigh Digital Radiography Specimen (Source) Anatomical Collection Method Collection Time Re ceived Time Location / / Volume Laterality 04/15/2020 6:16 PM BRANCH LENDING MANAGER Impressions 04/15/2020 6:18 PM BRANCH LENDING MANAGER IMPRESSION: No evidence of periprosthetic fracture. Expected postoperative findings. Attending Radiologist: Scott Chen M.D. 04/15/2020 6:16 PM Narrative 04/15/2020 6:18 PM BRANCH LENDING MANAGER RADIOLOGIC EXAM(S): XR FEMUR RIGHT MIN 2 VIEWS DATE AND TIME OF EXAM: 04/15/2020 5:28 PM CLINICAL HISTORY: Post Op; ; COMPARISON: ?? No studies are available for comparison. TECHNIQUE: XR FEMUR RIGHT MIN 2 VIEWS FINDINGS: Findings compatible with recent revision right total hip arthroplasty and proximal right femur replacement. Surgical drain is present overlying the distal aspect of the prosthesis. Moderately advanced t ricompartmental osteoarthrosis of the ri ght knee. Procedure Note Scott Chen MD - 04/15/2020Formatt ing of this note might be different from the original. RADIOLOGIC EXAM(S): XR FEMUR RIGHT MIN 2 VIEWS DATE AND TIME OF EXAM: 04/15/2020 5:28 PM CLINICAL HISTORY: Post Op; ; COMPARISON: No studies are available for comparison. TECHNIQUE: XR FEMUR RIGHT MIN 2 VIEWS FINDINGS: Findings compatible with recent revision right total hip arthroplasty and proximal right femur replacement. Surgical drain is present overlying the distal aspect of the prosthesis. Moderately advanced tricompartmental osteoarthrosis of the right knee. IMPRESSION: No evidence of periprosthetic fracture. Expected postoperative findings. Attending Radiologist: Scott Chen M.D. 04/15/2020 6:16 PM Kasey Hassan MD IMG DIAGNOSTIC IMAGING ORDER BABAK (ABNORMAL) hematocrit (04/15/2020 3:30 PM BRANCH LENDING MANAGER) athologist Signature Hematocrit 35.7 (L) 36.0 - 04/15/2020 [facility] DEPARTMENT 46.0 % 4:07 PM BRANCH LENDING MANAGER OF PATHOLOGY Specimen Anatomical Collection Method Collection Time Receive d Time (Source) Location / / Volume Laterality Blood STRUCTURE OF LEFT 04/15/2020 3:30 PM 04/02 3:44 UPPER LIMB / BRANCH LENDING MANAGER PM BRANCH LENDING MANAGER Unknown Narrative [facility] DEPARTMENT OF PATHOLOGY - 0 4:07 PM BRANCH LENDING MANAGER If the anticoagulant ratio is incorrect when colleting an EDTA specimen, the hematocrit, mean cell volume (MCV), and mean corpuscular hemoglobin concentration (MCHC) may be inaccurate. ??It is recomm ended to fill the tube to the stated tube volume by vacutainer method. Kasey Hassan MD LAB BLOOD ORDERABLES Performing Organization Address City/State/ZIP Code Phon e Number [facility] DEPARTMENT OF PATHOLOGY [address] [facility] [place] [address] [address] ANES Performed [facility] Regional/Invasive (04/15/2020 2:28 PM BRANCH LENDING MANAGER) Specimen (Source) Anatomical Location Collection Method / Collectio n Time Received Time / Laterality Volume Narrative Radiology, Silent Booth Operator - 04/15/2020 2:28 PM BRANCH LENDING MANAGER This procedure was performed during a surgical case. Please see the anesthetic note for the f ormal interpretation. Misbah Murphy MD IMG CLINIC XR Pelvis 1 or 2 Views (04/15/2020 1:22 PM BRANCH LENDING MANAGER) Anatomical Region Laterality Modality Pelvis Computed Radiography Specimen (Source) Anatomical Collection Method Collection Time Re ceived Time Location / / Volume Laterality 04/15/2020 1:33 PM BRANCH LENDING MANAGER Impressions 04/15/2020 1:35 PM BRANCH LENDING MANAGER IMPRESSION: Interval revision of right hip arthropla sty as above. ?? RESIDENT RADIOLOGIST: ATTENDING RADIOLOGIST: Malcom Nolen Narrative 04/15/2020 1:35 PM BRANCH LENDING MANAGER RADIOLOGIC EXAM: XR PELVIS 1 OR 2 VIEWS DATE AND TIME OF EXAMINATION: 04/15/2020 1:10 PM CLINICAL HISTORY: REVISE TOTAL HIP TO PA OXIMAL FEMUR REPLACEMENT/TOTAL ONCOLOGIC HIP REPLACEMENT ??Pelvic Pain ?? COMPARISON: Right hand April 10 TECHNIQUE: XR PELVIS 1 OR 2 VIEWS FINDINGS: Intraoperative radiographs during revisi on of right hip arthroplasty with placement of cemented proximal femoral replacement across the site of periprosthetic fracture exhibited on prior study. Associat ed cerclage wires have been removed. No fracture detected adjacent to the distal stem of the new femoral component. Acetabular component is in expected position. Open lateral soft tissue incision visible. Procedure Note Eilna Mcgee MD - 04/15/2020Formatti ng of this note might be different from the original. RADIOLOGIC EXAM: XR PELVIS 1 OR 2 VIEWS DATE AND TIME OF EXAMINATION: 04/15/2020 1:10 PM CLINICAL HISTORY: REVISE TOTAL HIP TO PA OXIMAL FEMUR REPLACEMENT/TOTAL ONCOLOGIC HIP REPLACEMENT Pelvic Pain COMPARISON: Right hand April 10 TECHNIQUE: XR PELVIS 1 OR 2 VIEWS FINDINGS: Intraoperative radiographs during revisi on of right hip arthroplasty with placement of cemented proximal femoral replacement across the site of periprosthetic fracture exhibited on prior study. Associated cerclage wires have been removed. No fracture det ected adjacent to the distal stem of the new femoral component. Acetabular component is in expected position. Open lateral soft tissue incision visible. IMPRESSION: Interval revision of right hip arthropla sty as above. RESIDENT RADIOLOGIST: ATTENDING RADIOLOGIST: Malcom Nolen Kasey Hasasn MD IMG DIAGNOSTIC IMAGING ORDER ABBAK (ABNORMAL) POCT TOTAL HGB W/HCT(CALC)VENOUS (04/15/2020 1:15 PM BRANCH LENDING MANAGER) [facility] [employer] Method Time Signature POC Total 11.7 (L) 12.0 - 04/15/2020 [facility] Hemoglobin 16.0 g/dl 1:16 PM BRANCH LENDING MANAGER DEPARTMENT OF Venous PATHOLOGY POCT 35.0 (L) 39.0 - 04/15/2020 [facility] HEMATOCRIT 45.0 % 1:16 PM BRANCH LENDING MANAGER DEPARTMENT OF CALC PATHOLOGY POCT PERFORMED Regeneration Operator Id: 04/15/2020 [facility] [place] [place] [id number] - 1:16 PM BRANCH LENDING MANAGER DEPARTMENT OF TORRES, PATHOLOGY [place] Specimen Anatomical Collection Method Collection Time Receive d Time (Source) Location / / Volume Laterality 04/15/2020 1:15 PM 0 1:16 BRANCH LENDING MANAGER PM BRANCH LENDING MANAGER Kasey Hassan MD POCT ORDERABLES - INTERFACED Performing Organization Address City/State/ZIP Code Phon e Number [facility] DEPARTMENT OF PATHOLOGY [address] [place], [place] [address] [phone] Street Transfuse RBC in mL (Nursing) (04/15/2020 11:23 AM BRANCH LENDING MANAGER) Misbah Murphy MD NURSING TREATMENT ORDERABLES - BLOOD ADMIN AFB culture w/ Stain (04/15/2020 10:21 AM BRANCH LENDING MANAGER)Only the most recent of3 results within the time period is included. [facility] Method Time Signature Culture, AFB No Acid Fast 05/29/2020 [facility] bacilli 12:25 PM DEPARTMENT OF isolated BRANCH LENDING MANAGER PATHOLOGY AFB Smear No acid fast 05/29/2020 [facility] bacilli seen on 12:25 PM DEPARTMENT OF [facility] BRANCH LENDING MANAGER PATHOLOGY ine direct smear fluorescent stain. Comment: Interpret No acid fast bacilli seen on smear with extreme caution. A negative result does not rule out the pr esence of an infectious agent. Culture pending final result. Specimen Anatomical Collection Method Collection Time Receive d Time (Source) Location / / Volume Laterality Tissue BONE STRUCTURE OF 04/15/2020 10:21 2019 1:01 FEMUR / Unknown AM BRANCH LENDING MANAGER PM BRANCH LENDING MANAGER Comment: Right femoral canal Kasey Hassan MD MICROBIOLOGY - GENERAL ORDER BABAK Performing Organization Address City/[facility]/ZIP Code Phon e Number [facility] DEPARTMENT OF PATHOLOGY [address] [place] [address] Street Deep Wound/Tissue Culture with stain (04/15/2020 10:21 AM BRANCH LENDING MANAGER)Only the most recent of3 resultswithin the time period is included. Component Value Ref Test Method Analysis Performed At Patho logist Range Time Signature Culture, No Growth MINIMUM 04/18/2020 [facility] Deep Wound after 72 INHIBITORY 8:52 AM BRANCH LENDING MANAGER DEPARTMENT OF hours CONCENTRATION PATHOLOGY Gram Stain Rare WBC per 04/18/2020 [facility] Result low power 8:52 AM BRANCH LENDING MANAGER DEPARTMENT OF field PATHOLOGY Gram Stain No organisms 04/18/2020 [facility] Result seen 8:52 AM BRANCH LENDING MANAGER DEPARTMENT OF PATHOLOGY Specimen Anatomical Collection Method Collection Time Receive d Time (Source) Location / / Volume Laterality Tissue BONE STRUCTURE OF 04/15/2020 10:21 2019 1:01 FEMUR / Unknown AM BRANCH LENDING MANAGER PM BRANCH LENDING MANAGER Comment: Right femoral canal Kasey Hassan MD MICROBIOLOGY - GENERAL ORDER BABAK Performing Organization Address [facility] Phon e Number [facility] DEPARTMENT OF PATHOLOGY [address] [place] [address], [place] [address] Street Fungus culture (04/15/2020 10:21 AM BRANCH LENDING MANAGER)Only the most recent of3 resultswithin the time period is included. Patholo gist Method Time Signature Culture, No Growth 05/16/2020 [facility] Fungus 9:01 AM BRANCH LENDING MANAGER DEPARTMENT OF PATHOLOGY Specimen Anatomical Collection Method Collection Time Receive d Time (Source) Location / / Volume Laterality Tissue BONE STRUCTURE OF 04/15/2020 10:21 2019 1:01 FEMUR / Unknown AM BRANCH LENDING MANAGER PM BRANCH LENDING MANAGER Comment: Right femoral canal Kasey Hassan MD MICROBIOLOGY - GENERAL ORDER BABAK Performing Organization Address City/[facility]/ZIP Code Phon e Number [facility] DEPARTMENT OF PATHOLOGY [address] [place] [address], [place] [address] Street Anaerobic culture (04/15/2020 10:21 AM BRANCH LENDING MANAGER)Only the most recent of3 results within the time period is included. [facility] Method [place] Signature Culture, No anaerobes 04/17/2020 [facility] Anaerobe isolated 11:10 AM BRANCH LENDING MANAGER DEPARTMENT OF PATHOLOGY Specimen Anatomical Collection Method Collection Time Receive d Time (Source) Location / / Volume Laterality Tissue BONE STRUCTURE OF 04/15/2020 10:21 2019 1:01 FEMUR / Unknown AM BRANCH LENDING MANAGER PM BRANCH LENDING MANAGER Comment: Right femoral canal Kasey Hassan MD MICROBIOLOGY - GENERAL ORDER BABAK Performing Organization Address City/State/ZIP Code Phon e Number [facility] DEPARTMENT OF PATHOLOGY [address] [place] [address] Street CONFIRMATORY ABORH (04/15/2020 9:28 AM BRANCH LENDING MANAGER) [facility] Method [place] Signature ABO/RH TYPE A Positive 04/15/2020 [facility] ([place]) 10:41 AM BRANCH LENDING MANAGER BLOOD BANK LAB Specimen Anatomical Collection Method / Collection Time Recei jackelyn Time (Source) Location / Volume Laterality Blood Non-lab 04/15/2020 9:28 04/15/2020 9 :29 Venipuncture / AM BRANCH LENDING MANAGER AM BRANCH LENDING MANAGER Unknown Kerrie Vidal NP BLOOD BANK TEST ORDERABLES Performing Organization Address City/[facility]/ZIP Code Phon e Number [facility] BLOOD BANK LAB [address] [place] [address], [place] [address] Type and screen (04/15/2020 9:26 AM BRANCH LENDING MANAGER) [facility] Signature ABO/RH TYPE A Positive 04/15/2020 [facility] ([place]) 10:32 AM BRANCH LENDING MANAGER BLOOD BANK LAB Antibody Negative 04/15/2020 [facility] Screen 10:32 AM BRANCH LENDING MANAGER BLOOD BANK LAB Specimen Anatomical Collection Method / Collection Time Recei jackelyn Time (Source) Location / Volume Laterality Blood Non-lab 04/15/2020 9:26 04/15/2020 9 :26 Venipuncture / AM BRANCH LENDING MANAGER AM BRANCH LENDING MANAGER Unknown Drew Boudreaux MD BLOOD BANK TEST ORDERABLES Performing Organization Address City/[facility]/ZIP Code Phon e Number [facility] BLOOD BANK LAB [address] [facility], [place] [address] Surgical Pathology Specimen (04/15/2020 9:07 AM BRANCH LENDING MANAGER) Component Value Ref Test Analysis Performed At Patholo gist Range Method Time Signature Case Report Surgical Pathology ?Case: [id number] ? 04/17/2020 [facility] Authorizing Provider: ??Татьяна Hassan MD ?Collected: ? 04/15/2020 0907 ? 9:10 AM DEPA RTMENT Ordering Location: ? [facility] OR ?Received: ?04/15/2020 0957 ? BRANCH LENDING MANAGER OF PATHOLOGY Pathologist: ? Sue Musa MD ? Intraop: ? Sue Musa MD ? Specimens: ?? A) - Hip, Righ t, Right Hip ? B) - Hip, Right, Right Hip #2 ? C) - Femu r, Right, right femur ? Final Diagnosis A. HIP, RIGHT: 04/17/2020 [facility] Electronically - Synovium and dense fibrous tissue, negative for acut e inflammation. 9:10 AM DEPARTMENT signed by BRANCH LENDING MANAGER OF PATHOLOGY Sue Newman B. HIP, RIGHT, # 2: MD Daysi on - Synovium and dense fibrous tissue, negative for acute infl ammation. 04/17/2020 at 9:10 AM C. FEMUR, RIGHT: - Segments of bone with foci of intramedullary f ibrosis and reactive changes. - No acute osteomyelitis identified. I certify the accuracy of th is report on the basis of my personal observations and interpretation. Microscopic examination performed on all specimens except gross only. Intraoperative A. Hip, Right. 04/17/2020 [facility] Consultation Specimen A: 9:10 AM DEPARTMENT Right hip: Negative for acute inflammation. BRANCH LENDING MANAGER OF PATHOLOGY Time Received 0957 Time Reported [id number] 1 Jose Cruz Read 04/15/[address] Musa B. Hip, Right. Specimen B: Right hip #2: Negative for acute inflammation. Time Received 0957 Time Reported [id number] 1 Jose Cruz Read 04/15/[address] Musa Gross A. Hip, Right. 04/17/2020 [facility] Description Specimen A is received fresh for intraoperative consult labeled with the patient's name, medical record number, right hip and consists of an aggregate of taylor-pink, focally necrotic tissue (6.0 x 3.0 x 9:10 AM DEPARTMENT 0.6 cm). Teacher Learning Disabled sections are submitted for frozen sectioning. BRANCH LENDING MANAGER OF PATHOLOGY Section code: A1: Frozen section remnant (CM) B. Hip, Right. Specimen B is received fresh for intraoperative consult labeled with the patient's name, medical record number, right hip #2 and consists of an aggregate of taylor-pink, focally necrotic tissue (2.8 x 2. 8 x 0.7 cm). Teacher Learning Disabled sections are submitted for froze n sectioning. Section code: B1: Frozen section remnant (CM) C. Femur, Right. Specimen C is received fresh labeled with patient's name, medical record number, ? right femur? and consists of 3 fragments of ragged, unoriented (10.5 x 4.5 x 2.5 cm, 13.5 x 2.5 x 1.4 cm, 7.2 x 3.5 x 2.9 cm) which appear to al l of been surgically , longitudinally splitting the femur into multiple fragments. Teacher Learning Disabled sections of each fragment are submitted in C1-C4, post decalcification. (AI) Additional 04/17/2020 [employer] Electron ically Information Unless specified otherwise a ho, the quality of the H&E and any other special stains performed at [facility] (AFB, PAS, immunostains, etc) is sati 9:10 AM DEPARTMENT [facility], and any internal o r external positive and negative controls react appropriately. BRANCH LENDING MANAGER OF PATHOLOGY Sue Musa MD on Any immunohistochemical, imm unofluorescence, or in-situ hybridization tests included in this report that were performed at [facility] were developed and their performance c 04/17/2020 at [facility] determined by [facility]. They have not been cleared or approved by the U.S. Food and Drug Administration (FDA). The FDA has determined that such clearance o 9:10 AM r approval is not necessary. These tests are used for clinical purposes. They should not be regarded as investigational or for research. The [facility] is certified under t he Clinical Laboratory Impro vement Act of 1988 (CLIA) as qualified to perform high complexity clinical laboratory testing. Specimen Anatomical Collection Method Collection Time Receive d Time (Source) Location / / Volume Laterality Tissue RIGHT HIP REGION 04/15/2020 9:07 AM 04/15 9:57 STRUCTURE / BRANCH LENDING MANAGER AM BRANCH LENDING MANAGER Unknown Comment: looking for acute infection, per Dr. Hassan. Please call OR 6 with results: #[id number] Tissue specimen RIGHT HIP REGION 04/15/2020 9:11 AM 9:57 AM (specimen) STRUCTURE / Unknown BRANCH LENDING MANAGER BRANCH LENDING MANAGER Comment: Right Hip #2 looking for acute infection, per Dr. Hassan. Please call OR 6 with results: #[id number] Tissue specimen STRUCTURE OF RIGHT 04/15/2020 10:00 AM 04/15/2020 12:49 PM (specimen) FEMUR / Unknown BRANCH LENDING MANAGER BRANCH LENDING MANAGER Comment: Right femur Kasey Hassan MD PATHOLOGY/CYTOLOGY ORDERABLE S Performing Organization Address City/State/ZIP Code Phon e Number [id number] DEPARTMENT OF PATHOLOGY [address] [facility] [place], [address] [place] documented in this encounter Visit Diagnoses Diagnosis Periprosthetic fracture of proximal end of femur - Primary Other fracture of right femur, initial e ncounter for closed fracture (HCC) Failure of right total hip arthroplasty, initial encounter (HCC) Morbid obesity with BMI of 45.0-49.9, ad ult (HCC) Inflammatory breast cancer, unspecified laterality (HCC) Diabetes mellitus (HCC) Type II or unspecified type diabetes melissa litus without mention of complication, not stated as uncontrolled documented in this encounter Admitting Diagnoses Diagnosis Other fracture of right femur, initial e ncounter for closed fracture (HCC) Periprosthetic fracture of proximal end of femur documented in this encounter Administered Medications Inactive Administered Medications - up to 3 most recent administrations Medication Order MAR Action Action Date Dose Rate Site acetaminophen (TYLENOL) tablet Given 04/18/2020 9:40 AM BRANCH LENDING MANAGER 1,00 0 mg 1,000 mg 1,000 mg Every 6 hours, Oral, First dose on Wed04/15/20 at 1945, Post-op Given 04/17/2020 8:55 PM BRANCH LENDING MANAGER 1,000 mg Given 04/17/2020 12:40 PM BRANCH LENDING MANAGER 1,000 mg ascorbic acid (VITAMIN C) tablet 1,000 m g Given 04/18/2020 9:41 AM BRANCH LENDING MANAGER 1,000 mg 1,000 mg Daily, Oral, First dose on Wed04/15/20 at 1945 Given 04/17/2020 8:28 AM BRANCH LENDING MANAGER 1,000 mg Given 04/16/2020 9:00 AM BRANCH LENDING MANAGER 1,000 mg bacitracin ointment Given 04/16/2020 10:40 PM BRANCH LENDING MANAGER Topical, PRN, Wound Care, skin tear, Starting on Wed04/16/20 at 2117, LUE dicyclomine (BENTYL) capsule 10 mg Given 04/17/2020 8:55 PM BRANCH LENDING MANAGER 10 mg 10 mg 4 times daily before meals & nightly, Oral, First dose on Wed04/15/20 at 2100 Given 04/17/2020 8:28 AM BRANCH LENDING MANAGER 10 mg Given 04/16/2020 9:08 PM BRANCH LENDING MANAGER 10 mg docusate sodium (COLACE) capsule 100 mg Given 04/18/2020 9:40 AM BRANCH LENDING MANAGER 100 mg 100 mg BID-2 times daily, Oral, First dose on Wed04/15/20 at 2100, Post-op Given 04/17/2020 8:55 PM BRANCH LENDING MANAGER 100 mg Given 04/17/2020 8:28 AM BRANCH LENDING MANAGER 100 mg enoxaparin (LOVENOX) injection Given 04/18/2020 9:40 AM BRANCH LENDING MANAGER 40 m g Abdominal Tissue 40 mg 40 mg Daily, Subcutaneous, First dose on Wed04/16/20 at 0900, Post-op Given 04/17/2020 8:28 AM BRANCH LENDING MANAGER 40 mg Abdom inal Tissue Given 04/16/2020 8:58 AM BRANCH LENDING MANAGER 40 mg Abdom inal Tissue famotidine injection 20 mg Given 04/15/2020 7:00 AM BRANCH LENDING MANAGER 20 mg 20 mg Poultry Service Technician to O.R., Intravenous, Starting on Wed04/15/20 at 0622, For 1 dose, Pre-op gabapentin (NEURONTIN) capsule 100 mg Given 04/18/2020 9:41 AM BRANCH LENDING MANAGER 100 mg 100 mg 3 times daily, Oral, First dose on Wed04/17/20 at 1400 Given 04/17/2020 8:55 PM BRANCH LENDING MANAGER 100 mg Given 04/17/2020 12:40 PM BRANCH LENDING MANAGER 100 mg heparin (porcine) injection 5,000 Given 04/15/2020 7:20 AM BRANCH LENDING MANAGER 5 ,000 Units Left Arm Units 5,000 Units Once, Subcutaneous, On Wed04/15/20 at 0730, For 1 dose, Pre-op insulin regular (HUMULIN Given 04/17/2020 5:08 PM BRANCH LENDING MANAGER 1 Units Abdominal Tissue R,NOVOLIN R) injection 0-5 Units 0-5 Units 3 times daily before meals, Subcutaneous, First dose on Wed04/15/20 at 1945 Given 04/17/2020 11:28 AM BRANCH LENDING MANAGER 1 Units Abdo josé miguel Tissue Given 04/17/2020 8:28 AM BRANCH LENDING MANAGER 1 Units Abdom inal Tissue mirtazapine (REMERON) tablet 15 mg Given 04/17/2020 8:55 PM BRANCH LENDING MANAGER 15 mg 15 mg Nightly, Oral, First dose on Wed04/15/20 at 2100 Given 04/16/2020 9:08 PM BRANCH LENDING MANAGER 15 mg Given 04/15/2020 8:19 PM BRANCH LENDING MANAGER 15 mg Morphine Sulfate injection 2 mg Given 04/16/2020 10:40 PM BRANCH LENDING MANAGER 2 mg 2 mg Every 2 hours PRN, Intravenous, Severe Pain, breakthrough pain, Starting on Wed04/15/20 at 1918, Post-op Given 04/16/2020 5:38 PM BRANCH LENDING MANAGER 2 mg nebivolol (BYSTOLIC) tablet 5 mg Given 04/17/2020 8:29 AM BRANCH LENDING MANAGER 5 mg 5 mg Daily, Oral, First dose on Wed04/16/20 at 0900 Given 04/16/2020 9:01 AM BRANCH LENDING MANAGER 5 mg ondansetron (ZOFRAN) tablet 4 mg Given 04/18/2020 1:09 PM BRANCH LENDING MANAGER 4 mg 4 mg Once, Oral, On Griselda 04/18/20 at 1315, For 1 dose oxyCODONE (ROXICODONE) immediate release Given 04/18/2020 1:25 P M BRANCH LENDING MANAGER 10 mg tablet 5-10 mg 5-10 mg Every 4 hours PRN, Oral, Moderate Pain, Breakthrough Pain, Starting on Wed04/15/20 at 1918, Post-op Given 04/18/2020 9:43 AM BRANCH LENDING MANAGER 10 mg Given 04/17/2020 8:55 PM BRANCH LENDING MANAGER 10 mg oxyCODONE HCl ER (OXYCONTIN) 12 hr tablet 10 Given 0 9:00 AM BRANCH LENDING MANAGER 10 mg mg 10 mg BID-2 times daily, Oral, First dose on Wed04/15/20 at 2100, Post-op Given 04/15/2020 8:19 PM BRANCH LENDING MANAGER 10 mg piperacillin-tazobactam (ZOSYN) New Bag 04/18/2020 2:36 AM BRANCH LENDING MANAGER 3.3 75 g 25 mL/hr 3.375 g in sodium chloride 0.9 % 100 mL IVPB (EXTENDED INFUSION) 3.375 g, Intravenous, Administer over 4 Hours, at 25 mL/hr, Every 8 hours, First dose on Wed04/15/20 at 1945, Until Discontinued, Indications: Broad-spectrum coverage New Bag 04/17/2020 9:02 PM BRANCH LENDING MANAGER 3.375 g 25 mL/hr New Bag 04/17/2020 11:28 AM BRANCH LENDING MANAGER 3.375 g 25 mL/hr RisaQuad CAPS 1 capsule Given 04/18/2020 9:40 AM BRANCH LENDING MANAGER 1 capsule 1 capsule Daily, Oral, First dose on Wed04/17/20 at 1100 Given 04/17/2020 11:28 AM BRANCH LENDING MANAGER 1 capsule rOPINIRole (REQUIP) tablet 2 mg Given 04/17/2020 8:55 PM BRANCH LENDING MANAGER 2 mg 2 mg Nightly, Oral, First dose on Wed04/15/20 at 2100 Given 04/16/2020 9:08 PM BRANCH LENDING MANAGER 2 mg Given 04/15/2020 8:19 PM BRANCH LENDING MANAGER 2 mg rOPINIRole (REQUIP) tablet 2 mg Given 04/18/2020 10:16 AM BRANCH LENDING MANAGER 2 mg 2 mg Daily PRN, Oral, Other, restless legs, Starting on Wed04/16/20 at 0928 Given 04/17/2020 9:28 AM BRANCH LENDING MANAGER 2 mg sodium chloride 0.9 % infusion New Bag 04/15/2020 11:03 PM BRANCH LENDING MANAGER 100 mL/hr at 100 mL/hr, Intravenous, Continuous, Starting on Wed04/16/20 at 0000 temazepam (RESTORIL) capsule 30 mg Given 04/17/2020 9:46 PM BRANCH LENDING MANAGER 30 mg 30 mg Nightly PRN, Oral, Sleep, Starting on Wed04/16/20 at 2136 Given 04/16/2020 10:27 PM BRANCH LENDING MANAGER 30 mg tuberculin injection 5 Units Given 04/17/2020 9:20 AM BRANCH LENDING MANAGER 5 Units Left Arm 5 Units Once, Intradermal, On Wed04/17/20 at 0715, For 1 dose Vancomycin HCl 2 g in sodium chloride New Bag 04/16/2020 12:49 AM BRANCH LENDING MANAGER 2 g 125 mL/hr 0.9 % 250 mL IVPB 2 g (rounded from 2.1225 g = 15 mg/kg ? 141.5 kg), Intravenous, Administer over 120 Minutes, at 125 mL/hr, Every 12 hours, First dose (after last reorder) on Wed04/15/20 at 2115, Until Discontinued, Indications: Perioperative Infection Pharmacoprophylaxis, Please check the refrigerator before requesting a redispense. Vancomycin HCl 2 g in sodium chloride New Bag 04/18/2020 6:37 AM BRANCH LENDING MANAGER 2 g 125 mL/hr 0.9 % 250 mL IVPB 2 g (rounded from 2.1225 g = 15 mg/kg ? 141.5 kg), Intravenous, Administer over 120 Minutes, at 125 mL/hr, Every 18 hours, First dose (after last modification) on Wed04/16/20 at 1800, Until Discontinued, Indications: Perioperative Infection Pharmacoprophylaxis, Please check the refrigerator before requesting a redispense. New Bag 04/17/2020 12:41 PM BRANCH LENDING MANAGER 2 g 125 mL/hr New Bag 04/16/2020 6:49 PM BRANCH LENDING MANAGER 2 g 125 mL/hr venlafaxine (EFFEXOR-XR) 24 hr capsule 1 50 mg Given 04/18/2020 9:40 AM BRANCH LENDING MANAGER 150 mg 150 mg Daily, Oral, First dose on Wed04/15/20 at 1945 Given 04/17/2020 8:28 AM BRANCH LENDING MANAGER 150 mg Given 04/16/2020 8:59 AM BRANCH LENDING MANAGER 150 mg documented in this encounter Active and Recently Administered Medications Times are shown in BRANCH LENDING MANAGER. Scheduled Medication Order 04/16/2020 04/17/2020 04/18/2020 acetaminophen (TYLENOL) tablet 1,000 mg 0036 (Given - Provider: Daniela Webber RN)0145 (Canceled Entry - Provider: Daniela Webber RN)0859 (Given - Provider: Magnolia Arnold RN)1258 (Given - Provider: Magnolia Arnold RN)1901 (Given - Provider: Magnolia Arnold RN) 0126 (Not Given - Provider: Daniela Webber RN - Reason: Other)0828 (Given - Provider: Sachi Jones RN)1240 (Given - Provider: Sachi Jones RN)1259 (Canceled Entry - Provider: aSchi Jones RN) 0145 (Not Given - Provider: Daniela cabrera RN - Reason: Other)0940 (Given - Provider: Sachi Jones RN) 1,000 mg Every 6 hours, Oral, First dose on Wed04/15/20 at 1945, Post-op 2054 (Given - Provider: Daniela Webber RN) ascorbic acid (VITAMIN C) tablet 1,000 mg 0900 (Given - Provider: Magnolia Arnold RN) 0828 (Given - Provider: Sachi Jones RN) 0941 (Given - Provider: Sachi Jones RN) 1,000 mg Daily, Oral, First dose on Wed04/15/20 at 1945 dicyclomine (BENTYL) capsule 10 mg 0859 (Given - Provi josie: Magnolia Arnold RN)1258 (Given - Provider: Magnolia Arnold, LEILA)1652 (Given - Provider: Magnolia Arnold RN)2108 (Given - Provider: Daniela Webber RN) 0828 (Given - Provider: Sachi Jones RN)1129 (Not Given - Provider: Sachi Jones RN - Reason: Patient/family refused)1643 (Not Given - Provider: Sachi Jones RN - Reason: Patient/family refused) 0806 (Not Given - Provider: Sachi Jones RN - Reason: Patient/family refused)1303 (Not Given - Provider: Sachi Jones RN - Reason: Patient/family refused) 10 mg 4 times daily before meals & night ly, Oral, First dose on Wed04/15/20 at 2100 2054 (Given - Provider: Daniela Webber , LEILA) docusate sodium (COLACE) capsule 100 mg 0859 (Given - Provider: Magnolia Arnold RN)2107 (Given - Provider: Daniela Webber RN) 0828 (Given - Provider: Sachi Jones RN)2054 (Given - Provider: Daniela Webber RN) 0940 (Given - Provider: Sachi Jones RN) 100 mg BID-2 times daily, Oral, First dose on Wed04/15/20 at 21 00, Post-op enoxaparin (LOVENOX) injection 40 mg 0858 (Given - Pro vider: Magnolia Arnold RN) 0828 (Given - Provider: Sachi Jones, LEILA) 0940 (Given - Provider: Sachi Jones, LEILA) 40 mg Daily, Subcutaneous, First dose on Wed04/16/20 at 0900, P ost-op gabapentin (NEURONTIN) capsule 100 mg 12 40 (Given - Provider: Sachi Jones, LEILA)1340 (Canceled Entry - Provider: Sachi Jones, LEILA)2054 (Given - Provider: Daniela Webber RN) 0941 (Given - Provider: Sachi Jones RN) 100 mg 3 times daily, Oral, First dose on Wed04/17/20 at 1400 insulin regular (HUMULIN R,NOVOLIN R) injection 0-5 Un its 0912 (Given - Provider: Magnolia Arnold RN)1259 (Given - Provider: Magnoila Arnold, LEILA)1829 (Given - Provider: Magnolia Arnold, LEILA) 0828 (Given - Provider: Sachi Jones RN - Comment: [phone] (Given - Provider: Sachi Jones RN)1708 (Given - Provider: Sachi Jones RN) 0502 (Not Given - Provider: Daniela Webber RN - Reason: Order parameters not met - Comment: [phone] (Canceled Entry - Provider: Daniela Webber RN)1130 (Due) 0-5 Units 3 times daily before meals, Hilario bcutaneous, First dose on Wed04/15/20 at 1945 mirtazapine (REMERON) tablet 15 mg 2107 (Given - Provi josie: Daniela Webber RN) 2054 (Given - Provider: Daniela Webber RN) 15 mg Nightly, Oral, First dose on Wed04/15/20 at 2100 nebivolol (BYSTOLIC) tablet 5 mg 0901 (Given - Provider: Sanchez Arnold RN) 0829 (Given - Provider: Sachi Jones RN) 0941 (Not Given - Provider: Sachi Jones RN - Reason: Patient/family refused) 5 mg Daily, Oral, First dose on Wed04/16/20 at 0900 ondansetron (ZOFRAN) tablet 4 mg (COMPLETED) 1309 (Given - Provider: Sachi Jones, LEILA) 4 mg Once, Oral, On Wed04/18/20 at 1315, For 1 dose oxyCODONE HCl ER (OXYCONTIN) 12 hr tablet 10 mg (CANCE LED) 0900 (Given - Provider: Magnolia Arnold, LEILA) 10 mg BID-2 times daily, Oral, First dose on Wed04/15/20 at 210 0, Post-op piperacillin-tazobactam (ZOSYN) 3.375 g in sodium chloride 0.9 % 100 mL IVPB (EXTENDED INFUSION) 0344 (New Bag - Provider: Daniela carrasco RN)1258 (New Bag - Provider: Magnolia Arnold, LEILA)1857 (New Bag - Provider: Magnolia Arnold RN) 0333 (New Bag - Provider: Daniela Webber, LEILA)1128 (New Bag - Provider: Sachi Jones RN)210 (New Bag - Provider: Daniela Webber RN) 0236 (New Bag - Provider: Daniela Webber RN)0345 (Canceled Entry - Provider: Daniela Webber RN)1303 (Not Given - Provider: Sachi Jones RN - Reason: Loss of IV access) 3.375 g, Intravenous, Administer over 4 Hours, at 25 mL/hr, Every 8 hours, First dose on Wed04/15/20 at 1945, Until Discontinued, Indications: Broad-spectrum coverage RisaQuad CAPS 1 capsule 1128 (Given - Provider: Sachi Jones RN) 0940 (Given - Provider: Sachi Jones RN) 1 capsule Daily, Oral, First dose on Wed04/17/20 at 1100 rOPINIRole (REQUIP) tablet 2 mg 2107 (Given - Provider: Suzie Webber RN) 2054 (Given - Provider: Daniela Webber RN) 2 mg Nightly, Oral, First dose on Wed04/15/20 at 2100 tuberculin injection 5 Units (COMPLETED) 09 (Given - Provider: Pop King RN) 5 Units Once, Intradermal, Wed04/17/20 at 0715, For 1 dose Vancomycin HCl 2 g in sodium chloride 0.9 % 250 mL IVP B (CANCELED) 004 (New Bag - Provider: Daniela Webber RN) 2 g (rounded from 2.1225 g = 15 mg/kg ? 141.5 kg), Intravenous, Administer over 120 Minutes, at 125 mL/hr, Every 12 hours, First dose (after last reorder) on Wed04/15/20 at 2115, Until Discontinued, I ndications: Perioperative Infection Phar macoprophylaxis, Please check the refrigerator before requesting a redispense. Vancomycin HCl 2 g in sodium chloride 0.9 % 250 mL IVP B 1849 (New Bag - Provider: Magnolia Arnold RN) 1241 (New Bag - Provider: Sachi Bradley RN) 0637 (New Bag - Provider: Daniela carrasco RN) 2 g (rounded from 2.1225 g = 15 mg/kg ? 141.5 kg), Intravenous, Administer over 120 Minutes, at 125 mL/hr, Every 18 hours, First dose (after last modification) on Wed04/16/20 at 1800, Until Discontinu ed, Indications: Perioperative Infection Pharmacoprophylaxis, Please check the refrigerator before requesting a redispense. venlafaxine (EFFEXOR-XR) 24 hr capsule 150 mg 0859 (Gi anthony - Provider: Magnolia Arnold RN) 0828 (Given - Provider: Sachi Jones, LEILA) 0940 (Given - Provider: Sachi Jones RN) 150 mg Daily, Oral, First dose on Wed04/15/20 at 1945 PRN Medication Order 04/16/2020 04/17/2020 04/18/2020 bacitracin ointment 2240 (Given - Provider: Daniela Webber RN ) Topical, PRN, Wound Care, skin tear, Starting Wed04/16/20 at 21 17, LUE dextrose 50 % solution 50 mL 50 mL PRN, Intravenous, Low blood sugar, for blood glucose < 70 mg/dL or >/= 70 mg/dL with symptoms, Starting Wed04/15/20 at 1918 Morphine Sulfate injection 2 mg 1738 (Given - Provider : Magnolia Arnold, LEILA)2240 (Given - Provider: Daniela Webber, LEILA) 2 mg Every 2 hours PRN, Intravenous, Sev ere Pain, breakthrough pain, Starting Wed04/15/20 at 1918, Post-op oxyCODONE (ROXICODONE) immediate release tablet 5-10 m g 0035 (Given - Provider: Daniela Webber, LEILA)1442 (Given - Provider: Magnolia Arnold, LEILA)2108 (Given - Provider: Daniela Webber, LEILA) 0611 (Given - Provider: Daniela Webber RN)1240 (Given - Provider: Sachi Jones RN)1706 (Given - Provider: Sachi Jones RN)2055 (Given - Provider: Daniela Webber RN) 0943 (Given - Provider: Sachi Jones RN)1325 (Given - Provider: Sachi Jones, LEILA) 5-10 mg Every 4 hours PRN, Oral, Moderat e Pain, Breakthrough Pain, Starting 04/15/20 at 1918, Post-op rOPINIRole (REQUIP) tablet 2 mg 0928 (Gi anthony - Provider: Sachi Jones RN) 1016 (Given - Provider: Sachi pablo RN) 2 mg Daily PRN, Oral, Other, restless legs, Starting Tue 0 at 0928 temazepam (RESTORIL) capsule 30 mg 2227 (Given - Provi josie: Daniela Webber RN) 2146 (Given - Provider: Daniela Webber RN) 30 mg Nightly PRN, Oral, Sleep, Starting Wed04/16/20 at 2136 documented in this encounter Care Teams Twine Winder Relationship Specialty Start Date End Date Anabelle Yost MD PCP - General Family Medicine 04/15/[address] [place] [address] [place] [address] documented as of this encounter
--- OUTSIDE RECORDS SUMMARY | 2022-02-01 20:29 | XMS_ITS | Encounter Summary ---
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 ??Other findings as detailed above. Attending Name:Vern Negrete D.O. Narrative 07/31/2020 9:06 AM CDT RADIOLOGICAL EXAM: ??XR [...] is not significantly changed. Procedure Note Sabino Negrete MD - 07/31/2020Form atting of this note [...] means documented in this encounter Care Teams Distance Learning Coordinator Relationship Specialty Start Date End Date Anabelle Yost MD PCP - General Family Medicine 04/15/[address] [place] [address] [place], [address] documented as of this encounter
--- OUTSIDE RECORDS SUMMARY | 2022-02-01 20:29 | XMS_ITS | Encounter Summary ---
:1955 Author Organization [facility] Address [address] [facility], [address] Phone Care Team Providers Name Role Phone Anabelle Yost MD Primary Care Provider Encounter Details Date Type Department Care Team Description 04/22/2020 Telephone [facility] Orthopaedics Silke Frias [facility] 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 documented as of this encounter Miscellaneous Notes Telephone Encounter - [facility] - 04/22/2020 12:59 PM CST Copied from [facility] #[id number]. Topic: Clinical Question/Request - Medical Concern/Question >> Apr 22, 2020 12:33 PM Vidya Rudolph wrote: Cinthya Moore at [facility] would like to speak with the nurse. The patient is having problems with her wound vac. Cinthya can be reached at [phone]. She needs to speak with the nurse today. documented in this encounter Plan of Treatment Upcoming Encounters Date Type Specialty Care Team Description 03/11/2022 Office Visit Orthopaedics Kasey Hassan MD [address] [facility], [place] [address] (Wo rk) documented as of this encounter Visit Diagnoses Not on filedocumented in this encounter Care Teams Tire Curer Relationship Specialty Start Date End Date Anabelle Yost MD PCP - General Family Medicine 04/15/[address] [place] [address] [place] [id number] documented as of this encounter
--- OUTSIDE RECORDS SUMMARY | 2022-02-01 20:29 | XMS_ITS | Encounter Summary ---
:1955 Author Organization [facility] Address [address] [facility], [address] Phone Care Team Providers Name Role Phone Anabelle Yost MD Primary Care Provider Reason for Visit Auth/Cert Specialty Diagnoses / Procedures Referred By Contact Refer red To Contact Diagnoses Other fracture of right femur, initial encounter for closed fracture (HCC) Other fracture of right femur, initial encounter for closed fracture (HCC) [S72.8X1A] Procedures LA REVISE TOTAL HIP REPLACEMENT LA INSERT DRUG IMPLANT DEVICE REVISE TOTAL HIP INSERTION ANTIBIOTIC BEADS/SPACERS HIP Referral ID Status Reason Start Date Expiration Date Visits Requ ested Visits Authorized [id number] 1 1 Encounter Details Date Type Department Care Team Description 04/17/2020 Ancillary Procedure [facility]patient Milagros Hassan MD Infusion/PICC [address] [place], [address] [place], [address] [phone] Social History Tobacco Use Types Packs/Day Years [...] at Date Recorded 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 documented as of this encounter Plan of Treatment Upcoming Encounters Date Type Specialty Care Team Description 03/11/2022 Office Visit [facility]opaedics [facility] Hassan MD [address] [facility] (Wo rk) documented as of this encounter Procedures Procedure Name Priority Date/Time Associated Comments Diagnosis ADULT VASC ACCESS Routine 04/17/2020 9:14 AM Resu lts for this ULTRASOUND CONTRIBUTION SOLICITOR procedure are i n the results section. documented in this encounter Results ADULT VASC ACCESS ULTRASOUND (04/17/2020 9:14 AM CONTRIBUTION SOLICITOR) Specimen (Source) Anatomical Location Collection Method / Collectio n Time Received Time / Laterality Volume Narrative Radiology, Silent Roping Tender - 04/17/2020 9:14 AM CONTRIBUTION SOLICITOR Ultrasound images obtained for archiving purposes only. ?? Kasey Hassan MD [facility] documented in this encounter Visit Diagnoses Not on filedocumented in this encounter Care Teams Security And Compliance Analyst Relationship Specialty Start Date End Date Anabelle Yost MD PCP - General Family Medicine 04/15/[address] [place] [address] SUITE [facility] [address] documented as of this encounter
--- OUTSIDE RECORDS SUMMARY | 2022-02-01 20:29 | XMS_ITS | Encounter Summary ---
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 documented in this encounter Results XR Femur Right Min 2 Views (03/06/2021 [...] means documented in this encounter Care Teams Income Tax Expert Relationship Specialty Start Date End Date Anabelle Yost MD PCP - General Family Medicine 04/15/[address] [place] [address] [place] [address], [place] [address] documented as of this encounter
--- OUTSIDE RECORDS SUMMARY | 2022-02-01 20:29 | XMS_ITS | Encounter Summary ---
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 documented in this encounter Results XR Femur Right Min 2 Views (05/29/2020 9:08 AM ELECTROPHYSIOLOGY NURSE PRACTITIONER) Anatomical Region Laterality Modality Thigh Digital Radiography Specimen (Source) Anatomical Collection Method Collection Time Re ceived Time Location / / Volume Laterality 05/29/2020 9:57 AM ELECTROPHYSIOLOGY NURSE PRACTITIONER Impressions 05/29/2020 9:59 AM ELECTROPHYSIOLOGY NURSE PRACTITIONER IMPRESSION: No significant interval change in the ap pearance of right hip arthroplasty and proximal right femoral prosthesis. ?? RESIDENT RADIOLOGIST: ATTENDING RADIOLOGIST: Malcom Nolen Narrative 05/29/2020 9:59 AM ELECTROPHYSIOLOGY NURSE PRACTITIONER RADIOLOGIC EXAM: XR FEMUR RIGHT MIN 2 VIEWS DATE AND TIME OF EXAMINATION: 05/29/2020 9:00 AM CLINICAL HISTORY: Z96.649 - Presence of unspecified artificial hip joint ?? COMPARISON: April 15, 2020 TECHNIQUE: XR FEMUR RIGHT MIN 2 VIEWS FINDINGS: Right hip arthroplasty and proximal femo ral prosthesis with unchanged hardware position or alignment. Ununited osseous fragment lateral to the proximal femoral prosthesis is unchanged in position. Soft tissue drain has been removed from the r ight hip region. Chronic arthritic changes in the right knee. Procedure Note Elina Mcgee MD - 05/29/2020Formatti ng of this note might be different from the original. RADIOLOGIC EXAM: XR FEMUR RIGHT MIN 2 EWS DATE AND TIME OF EXAMINATION: 05/29/2020 9:00 AM CLINICAL HISTORY: Z96.649 - Presence of unspecified artificial hip joint COMPARISON: April 15, 2020 TECHNIQUE: XR FEMUR RIGHT MIN 2 VIEWS FINDINGS: Right hip arthroplasty and proximal femo ral prosthesis with unchanged hardware position or alignment. Ununited osseous fragment lateral to the proximal femoral prosthesis is unchanged in position. Soft tissue drain has been removed from the right hip mariam on. Chronic arthritic changes in the right knee. IMPRESSION: No significant interval change in the ap pearance of right hip arthroplasty and proximal right femoral prosthesis. RESIDENT RADIOLOGIST: ATTENDING RADIOLOGIST: Malcom Nolen Kasey Hassan MD IMG DIAGNOSTIC IMAGING ORDER BABAK documented in this encounter Visit Diagnoses Diagnosis S/P revision of total hip Hip joint replacement by other means documented in this encounter Care Teams Bedspread Folder Relationship Specialty Start Date End Date Anabelle Yost MD PCP - General Family Medicine 04/15/[address] [place] [address] SUITE [facility] [place] [address] documented as of this encounter
--- OUTSIDE RECORDS SUMMARY | 2022-02-01 20:29 | XMS_ITS | Encounter Summary ---
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 Medications at [...] capsule 3 times daily as needed Biotin 63502 MCG TABS Take 25,000 mcg by 0 [...] Tissue Biotin 1 MG CAPS 0 11/28/19 Elderberry 575 MG/5ML as directed 0 SYRP [...] 03/11/2022 Office Visit Orthopaedics Kasey Hassan MD [facility] (Wo rk) documented as of this encounter Visit Diagnoses Diagnosis S/P revision of total hip Hip joint replacement by other means documented in this encounter Care Teams Class A Regional Truck Driver Relationship Specialty Start Date End Date Anabelle Yost MD PCP - General Family Medicine 04/15/[address] [place] [address] SUITE [facility] [place] [address] documented as of this encounter
--- OUTSIDE RECORDS SUMMARY | 2022-02-01 20:29 | XMS_ITS | Encounter Summary ---
:1955 Author Organization [facility] Address [address] [facility], [address] Phone Care Team Providers Name Role Phone Anabelle Yost MD Primary Care Provider Reason for Visit Reason Comments Post-Op *CR staple removal-1 WK F/U Encounter Details Date Type Department Care Team Description 05/14/2020 [facility]Up [facility] Winsome Monte, Jayna top check (Primary Dx); Orthopaedics ORACLE DATABASE DEVELOPER Closed disp fracture of lesser trochante r of left femur with nonunion; [address] [facility] S/ P revision of total hip [address] [place], [address] [place] [address] [phone] Social History Tobacco Use Types Packs/Day Years [...] at Date Recorded Female 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 documented as of this encounter Last Filed Vital Signs Vital Sign Reading Time Taken Comments Blood Pressure 141/70 05/14/2020 9:08 AM PATROL JUDGE Pulse 74 05/14/2020 9:08 AM PATROL JUDGE Temperature 36.6 ??C (97.9 ??F) 05/14/2020 9:08 AM PATROL JUDGE Respiratory Rate 20 05/14/2020 9:08 AM PATROL JUDGE Oxygen Saturation - - Inhaled Oxygen Concentration - - Weight - - Height 172.7 cm (5' 8) 05/14/2020 9:08 AM PATROL JUDGE Body Mass Index - - documented in this encounter Progress Notes BJORN Tejeda - 05/14/2020 9:15 AM CST PROCEDURES: Past Surgical History: Procedure [...] what happened. Spoke to the nurse at [facility] at facility and had reports that 1st [...] chills, body aches, nausea, vomiting or diarrhea. INTERVAL HISTORY 05/08/2020 She is s/p revision right SAMIR to proximal femur replacement by Dr. Hassan on 04/15/20. She returns today for wound check. No redness, drainage, or wound dehiscence. All RAGINI drains were removed prior to visit today. INTERVAL HISTORY 05/14/2020 She is s/p revision right SAMIR to proximal femur replacement by Dr. Hassan on 04/15/20. She returns today for wound check. No redness, drainage, or wound dehiscence. Every other bing removed on previous visit. She is doing well. She states she they plan to discharge her to home from the rehab facilityin 3 days. She PE: Musculoskeletal- Incision- healing well, no significant drainage, no dehiscence, no significant erythema. Swelling mild and moderate. Muscle Tone: Normal, without spasm. Pulses: PT: 2 and DP: 2. Sensation Intact to light touch in all dermatomes. Joint-right hip diminished range of motion. BP 141/70 Pulse 74 Temp 97.9 ??F (36.6 ??C) (Temporal) Resp 20 Ht 1.727 m (5' 8) BMI 47.44 kg/m?? IMAGING: None today ASSESSMENT: Routine postoperative follow-up after above noted orthopaedic procedures. Every other staple removed today. Patient doing well. She will continue to bathe with betadine daily. No showers orbaths. DVT prophylaxis: enoxaparin 40mg PLAN: 1. Pain control on Opioids . Pain medication was refilled. Risks of medications were discussed. 2. PT/OT-outpatient: Dr. Hassan nurse will send home health PT orders 3. Follow-up in [address] Hassan. 4. do not obtain Xrays at next visit 5. Immobilization / braces: Walker Rolling Walker 6. WB status: Weight bear as tolerated right lower extremity, 90 degree posterior hip precautions 7. bing: bing removed 8. Instructions to facility to continue to [...] weakness to extremities, and any other concerns. 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
--- OUTSIDE RECORDS SUMMARY | 2022-02-01 20:29 | XMS_ITS | Encounter Summary ---
:1955 Author Organization [facility] Address [address] [facility], [address] Phone Care Team Providers Name Role Phone Anabelle Yost MD Primary Care Provider Reason for Visit Reason Comments Post-Op ~ CR 1 week f/u Encounter Details Date Type Department Care Team Description 05/08/2020 [facility] [place], Jayna top check (Primary Dx); Orthopaedics HAND PICKER Closed disp fracture of lesser trochante r of left femur with nonunion; [address] [facility] [address] [facility] S/ P ORIF (open reduction internal fixation) fracture [place], [address] [place], [address] [phone] Social History Tobacco Use Types Packs/Day Years [...] at Date Recorded Female 04/08/2020 10:19 AM SHAPE HAND COVID-19 Exposure Response Date Recorded In the last month, have you been in contact with No / Unsure 04/15/2020 6:56 PM SHAPE HAND someone who was confirmed or suspected to have Coronavirus / COVID-19? documented as of this encounter Last Filed Vital Signs Vital Sign Reading Time Taken Comments Blood Pressure 124/60 05/08/2020 11:04 AM SHAPE HAND Pulse 80 05/08/2020 11:04 AM SHAPE HAND Temperature 36.3 ??C (97.4 ??F) 05/08/2020 11:04 AM SHAPE HAND Respiratory Rate 20 05/08/2020 11:04 AM SHAPE HAND Oxygen Saturation 100% 05/08/2020 11:04 AM SHAPE HAND Inhaled Oxygen Concentration - - Weight - - Height 175.3 cm (5' 9) 05/08/2020 11:04 AM SHAPE HAND Body Mass Index - - documented in this encounter Patient Instructions Patient InstructionsBJORN Tejeda - 05/08/2020 10:15 AM CST Patient Instructions: Range of motion/Weight-bearing Restrictions: WBAT right lower extremity, posterior hip precautions Activity: WBAT right lower extremity, posterior hip precautions Wound Care: Every other Lea remain. Please clean incision area with betadine daily, let betadine dry, and cover with clean dry Gauze or leave open to air Return to Clinic: 1 week for wound check . Diet: resume prior to admission diet Medications: oxycodone-acetaminophen (PERCOCET E HAND documented in this encounter Progress Notes BJORN Tejeda - 05/08/2020 10:15 AM CST PROCEDURES: Past Surgical History: Procedure [...] what happened. Spoke to the nurse at [facility] at facility and had reports that 1st [...] drains were removed prior to visit today. PE: Musculoskeletal- Incision- healing well, no significant drainage, no dehiscence, no significant erythema. Swelling mild and moderate. Muscle Tone: Normal, without spasm. Pulses: PT: 2 and DP: 2. Sensation Intact to light touch in all dermatomes. Joint-right hip diminished range of motion. BP 124/60 Pulse 80 Temp 97.4 ??F (36.3 ??C) (Temporal) Resp 20 Ht 1.753 m (5' 9) SpO2 100% BMI 46.07 kg/m?? IMAGING: None today ASSESSMENT: Routine postoperative follow-up after above noted orthopaedic procedures. Every other staple removed today. Patient doing well. She will continue to bathe with betadine daily. No showers orbaths. DVT prophylaxis: enoxaparin 40mg PLAN: 1. Pain control on Opioids . Pain medication was refilled. Risks of medications were discussed. 2. PT/OT-outpatient Ordered . 3. Follow-up in:5-6 days with me 4. do not obtain Xrays at next visit 5. Immobilization / braces: Walker Rolling Walker 6. WB status: Weight bear as tolerated right lower extremity, 90 degree posterior hip precautions 7. lea: every other lea removed 8. Instructions to facility to continue [...] extremities, and any other concerns. 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
--- OUTSIDE RECORDS SUMMARY | 2022-02-01 20:29 | XMS_ITS | Encounter Summary ---
:1955 Author Organization [facility] Address [address] [place] [address] Phone Care Team Providers Name Role Phone Anabelle Yost MD Primary Care Provider Encounter Details Date Type Department Care Team Description 11/18/2021 Anesthesia Event [facility] OR [place], Mihaela Koo., [address] [facility] [place] [address] [place] [address] [place], [place] [address] (Wo rk) Anesthesia Record Procedure Summary Procedure Name Responsible Anesthesia Start Anesthesia Stop Time Anesthesiologist Time CLOSED REDUCTION HIP SOCKET FRACTURE (Right ) Events No events on file. No medications on file. Agents No agents on file. Blood No blood administrations on file. 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 documented as of this encounter OR Notes Anesthesia Preprocedure Evaluation - Lucretia Turpin, USAMA - 11/19/2021 7:56 AM CDT NPO Date of last liquid consumption: -- Time of last liquid consumption: -- Date of last solid food consumption: -- Time of last solid food consumption: -- Comment: -- Case: [id number] Date/Time: 11/19/21 0815 Procedure: CLOSED REDUCTION HIP SOCKET FRACTURE (Right ) Diagnosis: Closed dislocation of right hip, subsequent encounter [S73.004D] Pre-op diagnosis: Closed dislocation of right hip, subsequent encounter [S73.004D] Location: MAIN OR [address] [place] [address] ADULT OR Surgeons: Blas Armendariz MD Allergies [...] Mycin [Macrolides And Ketolides] Rash PHYSICAL EXAM Other Findings HTN, non insulin dependent DM2, CHF and hx of inflammatory breast cancer s/p b/l mastectomy and chemo, LOLY on CPAP, PTSD/depression/anxiety and class 3 obesity Chart review Anesthesia Notes Fell Wednesday and injured hip. No LOC. Very extensive surgical history with 33 previous surgeries. 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 Blood Products Available PRBC: 4 Plts: FFP: Cryo: Lab Results Component Value Date WBC 6.2 11/19/2021 HGB 11.8 (L) 11/19/2021 HCT 38.5 11/19/2021 PLT 215 11/19/2021 NA 137 11/19/2021 K 4.0 11/19/2021 CO2 24 11/19/2021 CL 100 11/19/2021 INR 1.03 11/18/2021 documented in this encounter Plan of Treatment Upcoming Encounters Date Type Specialty Care Team Description 03/11/2022 Office Visit Orthopaedics Kasey Hassan MD [facility] N [facility], [place] [address] (Wo rk) documented as of this encounter Visit Diagnoses Not on filedocumented in this encounter Care Teams Nursery Technician Relationship Specialty Start Date End Date Anabelle Yost MD PCP - General Family Medicine 04/15/[address] [place] [address] [address] [place] [address] documented as of this encounter
--- OUTSIDE RECORDS SUMMARY | 2022-02-01 20:29 | XMS_ITS | Encounter Summary ---
:1955 Author Organization [facility] Address [address] [place] [address] Phone Care Team Providers Name Role Phone Anabelle Yost MD Primary Care Provider Reason for Visit Reason Comments Post-Op ~ CRSx 04/15, Dr. Hassan; 1wk wound vac removal; drain check Consultation (Routine) - Closed Specialty Diagnoses / Procedures Referred By Contact Refer red To Contact Orthopaedics Diagnoses Other fracture of right femur, initial encounter for closed fracture (HCC) Failure of right total hip arthroplasty, initial encounter (HCC) Kerrie Vidal NP [address] [place] [address] Referral ID Status Reason Start Date Expiration Date Visits Requ ested Visits Authorized [id number] Closed 04/18/2020 04/19/2021 1 1 Encounter Details Date Type Department Care Team Description 04/24/2020 [facility]Up [facility] Winsome Monte, Pos top check (Primary Dx); Orthopaedics CONCRETE PRECAST MOULDER Closed disp fracture of lesser trochante r of left femur with nonunion; [address] [facility] S/ P ORIF (open reduction internal fixation) fracture [place] [facility] [address] [place] [address] [phone] Social History Tobacco Use Types Packs/Day Years [...] at Date Recorded Female 04/08/2020 10:19 AM NICKER COVID-19 Exposure Response Date Recorded In the last month, have you been in contact with No / Unsure 04/15/2020 6:56 PM NICKER someone who was confirmed or suspected to have Coronavirus / COVID-19? documented as of this encounter Last Filed Vital Signs Vital Sign Reading Time Taken Comments Blood Pressure 131/70 04/24/2020 7:52 AM NICKER Pulse 88 04/24/2020 7:52 AM NICKER Temperature - - Respiratory Rate 20 04/24/2020 7:52 AM NICKER Oxygen Saturation - - Inhaled Oxygen Concentration - - Weight - - Height 175.3 cm (5' 9) 04/24/2020 7:52 AM NICKER Body Mass Index - - documented in this encounter Patient Instructions Patient InstructionsBJORN Tejeda - 04/24/2020 8:00 AM CST Pending Tests: AFB cultures preliminary at discharge ?? Disposition: Discharged to SN[facility] ?? Is inpatient Readmission Planned Within 30 days? No ?? Patient Instructions: Range of motion/Weight-bearing Restrictions: WBAT right lower extremity, posterior hip precautions Activity: WBAT right lower extremity, posterior hip precautions ?? Wound Care: prevena wound vac removed. RAGINI drain remain. Lea remain. Please clean incision area with betadine daily, let betadine dry, and cover with clean dry gauze. ?? Diet: resume prior to admission diet ?? Medications: oxycodone-acetaminophen (PERCOCET) 10-325 MG per tablet Summary: Take 1 tablet by mouth every 6 hours as needed Max Daily Amount: 4 tablets, Return to Clinic: 1 week for RAGINI check/removal ER documented in this encounter Progress Notes Winsome MonteBJORN - 04/24/2020 8:00 AM CST PROCEDURES: Past Surgical History: Procedure [...] ADULT OR HPI: Sarah Doran is a 64 y.o. y.o. female who is here for [...] last output was 160 ml on 02/22/20. PE: Musculoskeletal- Incision- healing well, no significant drainage, no dehiscence, no significant erythema. Swelling mild and moderate. Muscle Tone: Normal, without spasm. Pulses: PT: 2 and DP: 2. Sensation Intact to light touch in all dermatomes. joint-right hip diminished range of motion. IMAGING: None today ASSESSMENT: Routine postoperative follow-up after above noted orthopaedic procedures with no evidence of complications. No evidence of infection or DVT. Wound Vac removed. RAGINI drain #1 and #2 will remain intact. She will return to clinic in 1 week with RESEARCH CHEMIST for staple removal and RAGINI drain removal if appropriate. She will continue Keflex. Pain medication not refilled today, but in instructions I noted it is okay to take her medication [id number] with max of 4 pills a day. DVT prophylaxis: enoxaparin 40mg PLAN: 1. Pain control on Opioids . Pain medication was not refilled. Risks of medications were discussed. 2. PT/OT-outpatient Ordered . 3. Follow-up in:1 weeks with RESEARCH CHEMIST 4. do not obtain Xrays at next visit 5. Immobilization / braces: Walker Rolling Walker 6. WB status: Weight bear as tolerated right lower extremity, 90 degree posterior hip precautions 7. lea: intact Return precautions: Patient was instructed to return to the Emergency Room should the following symptoms occur: fever > 101.5 F, chills, shortness of breath, chest pain, pain out of proportion, excessive or purulent wound drainage, foul odor from incision, new onset numbness/tingling or weakness to extremities, and any other concerns. BJORN Tejeda ER documented in this encounter Plan of Treatment Upcoming Encounters Date Type Specialty Care Team Description 03/11/2022 Office Visit Orthopaedics Kasey Hassan MD [address] [place] [id number] (Wo rk) documented as of this encounter Visit Diagnoses Diagnosis Postop check - Primary Follow-up examination, following unspeci fied surgery Closed disp fracture of lesser trochante r of left femur with nonunion Nonunion of fracture S/P ORIF (open reduction internal fixati on) fracture documented in this encounter Care Teams Technology Education Instructor Relationship Specialty Start Date End Date Anabelle Yost MD PCP - General Family Medicine 04/15/[address] [place] [id number] documented as of this encounter
--- OUTSIDE RECORDS SUMMARY | 2022-02-01 20:29 | XMS_ITS | Encounter Summary ---
:1955 Author Organization [facility] Address [address] [place] [facility] [place] [address] Phone Care Team Providers Name Role Phone Anabelle Yost MD Primary Care Provider Encounter Details Date Type Department Care Team Description 11/19/2021 Travel Social History Tobacco Use Types Packs/Day [...] at Date Recorded Female 04/08/2020 10:19 AM LIME BURNER COVID-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 documented as of this encounter Plan of Treatment Upcoming Encounters Date Type Specialty Care Team Description 03/11/2022 Office Visit Orthopaedics Kasey Hassan MD [address] [facility] [place] [address] (Wo rk) documented as of this encounter Visit Diagnoses Not on filedocumented in this encounter Care Teams Tire Fabricator Relationship Specialty Start Date End Date Anabelle Yost MD PCP - General Family Medicine 04/15/[address] [place] [address] [address] [place] [id number] documented as of this encounter
--- OUTSIDE RECORDS SUMMARY | 2022-02-01 20:29 | XMS_ITS | Encounter Summary ---
:1955 Author Organization [facility] Address [address] [place] [address], [place] [address] Phone Care Team Providers Name Role Phone Anabelle Yost MD Primary Care Provider Reason for Visit Auth/Cert Specialty Diagnoses / Procedures Referred By Contact Refer red To Contact Diagnoses Other fracture of right femur, initial encounter for closed fracture (HCC) Other fracture of right femur, initial encounter for closed fracture (HCC) [S72.8X1A] Procedures SC REVISE TOTAL HIP REPLACEMENT SC INSERT DRUG IMPLANT DEVICE REVISE TOTAL HIP INSERTION ANTIBIOTIC BEADS/SPACERS HIP Referral ID Status Reason Start Date Expiration Date Visits Requ ested Visits Authorized [id number] 1 1 Encounter Details Date Type Department Care Team Description 04/15/2020 Ancillary Procedure [facility] ANESTHESIA Misbah Murphy MD [address] [place] [address], [place] [address] [place] [address] [email or web address] Kasey Hassan MD [address] [place] [address], [place] [address] [place] [id number] Social History Tobacco Use Types Packs/Day Years [...] at Date Recorded 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 documented as of this encounter Plan of Treatment Upcoming Encounters Date Type Specialty Care Team Description 03/11/2022 Office Visit Orthopaedics Kasey Hassan MD [address] [facility], [address] (Wo rk) documented as of this encounter Procedures Procedure Name Priority Date/Time Associated Diagnosis Comme nts ANES PERFORMED US Routine 04/15/2020 2:28 PM Resu lts for this REGIONAL/INVASIVE FIELD MARKETING SPECIALIST procedure are in the results section. documented in this encounter Results ANES Performed US Regional/Invasive (04/15/2020 2:28 PM FIELD MARKETING SPECIALIST) Specimen (Source) Anatomical Location Collection Method / Collectio n Time Received Time / Laterality Volume Narrative Radiology, Silent Goodwill Ambassador - 04/15/2020 2:28 PM FIELD MARKETING SPECIALIST This procedure was performed during a surgical case. Please see the anesthetic note for the f ormal interpretation. Misbah Murphy MD [facility] documented in this encounter Visit Diagnoses Not on filedocumented in this encounter Care Teams Script Supervisor Relationship Specialty Start Date End Date Anabelle Yost MD PCP - General Family Medicine 04/15/[address] [place] [address] [address] [place] [address] documented as of this encounter
--- OUTSIDE RECORDS SUMMARY | 2022-02-01 20:29 | XMS_ITS | Encounter Summary ---
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 1 week Comments Resume physical therapy program to RLE Conditioning, Strengthening, ROM, modali ties as indicated SITION REPORTER Reason for Visit Reason Comments Post-Op CASTROOM/WOUND CHECK....2 we ek post-op Encounter Details Date Type Department Care Team Description 05/29/2020 [facility] Kasey Hassan, S/P r evision of total hip (Primary Dx); Orthopaedics Failure of right total hip arthroplasty, subsequent encounter; [address] Periprosthetic fracture of proximal end of femur; [place] [address] History of left hip replacement [place] [address] [phone] Social History Tobacco Use Types Packs/Day Years [...] at Date Recorded Female 04/08/2020 10:19 AM DEPOSITION REPORTER documented as of this encounter Last Filed Vital Signs Vital Sign Reading Time Taken Comments Blood Pressure 112/61 05/29/2020 8:08 AM DEPOSITION REPORTER Pulse 83 05/29/2020 8:08 AM DEPOSITION REPORTER Temperature 36.3 ??C (97.4 ??F) 05/29/2020 8:08 AM DEPOSITION REPORTER Respiratory Rate 20 05/29/2020 8:08 AM DEPOSITION REPORTER Oxygen Saturation 97% 05/29/2020 8:08 AM DEPOSITION REPORTER Inhaled Oxygen Concentration - - Weight - - Height 172.7 cm (5' 8) 05/29/2020 8:08 AM DEPOSITION REPORTER Body Mass Index - - documented in this encounter Progress Notes Juani Nguyen LPN - 05/29/2020 7:45 AM CST ORTHOPAEDIC ONCOLOGY NURSING ASSESSMENT Sarah is in clinic today because of her right leg pain. Today she reports a pain severity of 3 and ausual severity of 3. The type of pain reported is aching and it lasts for a few hours at a time. Shereports that the pain is happening once a week Pain is aggravated by exercise and getting up from sitting. Treatments she has tried include: rest, heat, ice, exercise, physical therapy, anti-inflammator ies and narcotics/pain meds. Currently, she is using a walker and a wheelchair to assist in ambulation. Sarah has been seen by another providerfor this condition. She has had xrays done recently. Review of Systems: Review of Systems Constitutional: Positive for weight gain, fatigue, night sweats, aching and stiffness. HENT: Positive for headaches. Eyes: Negative. Respiratory: Positive for cough, shortness of breath and wheezing. Cardiovascular: Positive for leg swelling, leg cramping, short of breath and high blood pressure. Gastrointestinal: Negative. Genitourinary: Negative. Musculoskeletal: Positive for joint pain, joint swelling, joint replacement, muscle pain and obesity. Skin: Negative. Neurological: Positive for dizziness. Endo/Heme: Positive for bruises/bleeds easily, diabetes and anemia. Psychiatric/Behavioral: Positive for depression and insomnia. This note is written by Juani Nguyen LPN, acting as a scribe for Dr. Kasey Hassan. SITION REPORTER Associated attestation - Kasey Hassan MD - 05/29/2020 3:24 PM DEPOSITION REPORTER ATTENDING ATTESTATION: This HPI and ROS was taken by Juani Nguyen LPN in my presence acting as my scribe. These notes accurately reflect my work and decisions Kasey Hassan M.D. Angel Arauz MD - 05/29/2020 7:45 AM CST ORTHOPAEDIC ONCOLOGY CLINIC NOTE Kasey Hassan MD Chief Complaint: Chief Complaint Patient presents with ??? Post-Op CASTROOM/WOUND CHECK....2 week post-op Referring Physician: Dr. Marr and Dr. Jordan Medical Oncologist: Dr. 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 2011: Bilateral mastectomies ?? [id number]: Several soft tissue procedures including resection of an 5th rib on the right and right chest wall secondary to osteomyelitis then treated by IV antibiotics with Merrem for 8 weeks and 1 year of p.o. suppressive therapy ?? Total of 18 surgeries for her breasts to include bilateral pectoral flaps ?? 06/14/2019: Right total hip arthroplasty by Dr. Jordan; implants: DP [place] acetabular shell size 54 with a 36 mm neutral liner, size 36+ 1.5 ceramic head and 6 high offset Gem stem ?? 08/22/2019: Revision right total hip [...] healed well. She was recently admitted to [facility] for fluid overload. She says she lost approximately 45 lbs via diuresis. Ortho HPI Parts of the HPI notes [...] Hassan. Physical Exam: General Physical Exam: BP 112/61 Pulse 83 Temp 97.4 ??F (36.3 ??C) (Oral) Resp 20 Ht 1.727 m (5' 8) SpO2 97% BMI 47.44 kg/m?? General Appearance: Alert, cooperative, [...] with no signs of loosening or periprosthetic fracture. These images have been interpreted by me, Angel Arauz MD, independent of the radiologists interpretation as [...] No results found for any visits on 05/29/20. Assessment: ICD-10-CM 1. S/P revision of total hip Z96.649 2. Failure of right total hip arthroplasty, subsequent encounter T84.010D 3. Periprosthetic fracture of proximal end of femur M97.8XXA Z96.649 4. History of left hip replacement Z96.642 Plan: She is doing well and as expected postop. She understands to continue posterior hip precautions. Weight bearing status: WBAT right lower extremity Pain medication: Requested Prescriptions Signed Prescriptions Disp Refills ??? oxycodone-acetaminophen (PERCOCET) 10-325 MG per tablet 45 tablet 0 Sig: Take 1 tablet by mouth every 6 hours as needed Max Daily Amount: 4 tablets ??? amoxicillin (AMOXIL) 500 mg capsule 4 capsule 0 Sig: Take Amoxicillin 1gm 30 minutes prior to dental procedure Indications: Infection of the Skin and/or Soft Tissue Consults: RTC: Patient instructed to return to clinic in 2 months with the following routine surveillance imaging required: X-rays right hip/femur She is satisfied with the current course as well as our current plan. All her questions were answered to her contentment. Keep the following scheduled appointments: Future Appointments Date Time Provider Department Center 07/31/2020 8:30 AM Kasey Hassan MD [facility] Angel Arauz MD /ATTENDING ATTESTATION: I saw and evaluated the patient. I agree with the findings and plan as documented in the note. She will maintain her posterior hip precautions x 3 months. See me in 2 months forevaluation for driving Kasey Hassan DISCLAIMER: This note was prepared with voice recognition and cement or concrete finishing supervisor software, which may be prone to cement or concrete finishing supervisor errors SITION REPORTER documented in this encounter Plan of Treatment Upcoming Encounters Date Type Specialty Care Team Description 03/11/2022 Office Visit Orthopaedics Kasey Hassan MD [address] [facility] [place], [address] (Wo rk) Scheduled Referrals Name Type Priority Associated Diagnoses Order S chedule Ambulatory Referral Outpatient Referral Routine S/P revision o f Ordered: to Adult Physical total hip 05/29/2020 Therapy Failure of right total hip arthroplasty, subsequent encou nter Periprosthetic fracture of proximal end of femur History of left hip replacement documented as of this encounter Results XR Femur Right Min 2 Views (05/29/2020 9:08 AM DEPOSITION REPORTER) Anatomical Region Laterality Modality Thigh Digital Radiography Specimen (Source) Anatomical Collection Method Collection Time Re ceived Time Location / / Volume Laterality 05/29/2020 9:57 AM DEPOSITION REPORTER Impressions 05/29/2020 9:59 AM DEPOSITION REPORTER IMPRESSION: No significant interval change in the ap pearance of right hip arthroplasty and proximal right femoral prosthesis. ?? RESIDENT RADIOLOGIST: ATTENDING RADIOLOGIST: Malcom Nolen Narrative 05/29/2020 9:59 AM DEPOSITION REPORTER RADIOLOGIC EXAM: XR FEMUR RIGHT MIN 2 [...] Primary Hip joint replacement by other means Failure of right total hip arthroplasty, subsequent encounter Periprosthetic fracture of proximal end of femur History of left hip replacement S/P revision of total hip Hip joint replacement by other means documented in this encounter Care Teams Milk Of Lime Slaker Relationship Specialty Start Date End Date Anabelle Yost MD PCP - General Family Medicine 04/15/[address] [place] [id number] documented as of this encounter
--- OUTSIDE RECORDS SUMMARY | 2022-02-01 20:30 | XMS_ITS | Encounter Summary ---
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 documented as of this encounter Medications at Time of Discharge Medication Sig Dispensed Refills Start Date End Date Ascorbic Acid (VITAMIN C) Take 1,000 mg by 0 1000 MG tablet mouth daily Calcium Take 1 tablet by 0 Carb-Cholecalciferol mouth 2 times daily (CALCIUM-VITAMIN D) with meals 500-200 MG-UNIT per tablet colesevelam (WELCHOL) 625 Take 1,250 mg by 0 MG tablet mouth 2 times daily with meals cyclobenzaprine (FLEXERIL) Take 10 mg by mouth 0 10 mg tablet 3 times daily as needed for Muscle spasms dicyclomine (BENTYL) 10 mg Take 10 mg by mouth 0 capsule 4 times daily before meals and nightly furosemide (LASIX) 40 mg Take 40 mg by mouth 0 tablet daily metFORMIN (GLUCOPHAGE) 500 Take 500 mg by 0 mg tablet mouth daily with breakfast ondansetron (ZOFRAN) 4 mg Take 4 mg by mouth 0 tablet every 8 hours as needed for Nausea promethazine (PHENERGAN) Take 12.5 mg by 0 12.5 MG tablet mouth every 6 hours as needed for Nausea rOPINIRole (REQUIP) 2 MG Take 2 mg by mouth 0 tablet nightly temazepam (RESTORIL) 30 MG Take 30 mg by mouth 0 capsule nightly as needed for Sleep venlafaxine (EFFEXOR-XR) Take 150 mg by 0 150 mg 24 hr capsule mouth daily Ascorbic Acid (VITAMIN C) Take by mouth 0 020 04/18/2020 1000 MG tablet aspirin 81 mg EC tablet Take 81 mg by mouth 0 04/18/2020 daily dextrose 5 % SOLN 1,000 mL Inject into the 0 04/18/2020 with MULTI-12 IV INJ 10 mL vein daily diclofenac (VOLTAREN) 75 Take 75 mg by mouth 0 04/18/2020 mg EC tablet 2 times daily HYDROcodone-acetaminophen Take 1 tablet by 0 04/18/2020 (NORCO) 5-325 MG per mouth every 6 hours tablet as needed for Pain mirtazapine (REMERON) 15 Take 15 mg by mouth 0 11/27/2021 mg tablet nightly nebivolol (BYSTOLIC) 5 MG Take 5 mg by mouth 0 11/27/2021 tablet daily potassium chloride 20 Inject into the 0 04/18/2020 MEQ/50ML IVPB vein once telmisartan-hydrochlorothi Take 1 tablet by 0 04/18/2020 azide (MICARDIS HCT) 80-25 mouth daily MG per tablet documented as of this encounter Plan of Treatment Upcoming Encounters Date Type Specialty Care Team Description 03/11/2022 Office Visit Orthopaedics Kasey Hassan MD [address] [facility] [place], [place] [address] (Wo rk) documented as of this encounter Procedures Procedure Name Priority Date/Time Associated Comments Diagnosis FL THERAPEUTIC Routine 03/20/2020 10:44 Right hip pain Results for this INJ/ASPIR LG JOINT AM THRESHING DEPARTMENT SUPERVISOR Failure of right proce dure are in total hip the results arthroplasty, section. initial encounter (HCC) documented in this encounter Results FL Therapeutic Inj/Aspir LG Joint (03/20/2020 10:44 AM THRESHING DEPARTMENT SUPERVISOR) Anatomical Region Laterality Modality Digital Radiography Specimen (Source) Anatomical Collection Method Collection Time Re ceived Time Location / / Volume Laterality 03/20/2020 3:34 PM THRESHING DEPARTMENT SUPERVISOR Impressions 03/20/2020 3:37 PM THRESHING DEPARTMENT SUPERVISOR IMPRESSION: Unsuccessful fluoroscopically guided rig ht hip aspiration. ATTENDING RADIOLOGIST: Scott Rice MD I was present for the entire procedure. ??I personally reviewed the associated images and agree with the findings. Narrative 03/20/2020 3:37 PM THRESHING DEPARTMENT SUPERVISOR EXAM: ??FLUOROSCOPICALLY GUIDED RIGHT HIP INJECTION DATE AND TIME OF EXAM: ??03/20/2020 10:1 2 AM HISTORY: M25.551 - Pain in right hip; T84.010A - Broken internal right hip pro sthesis, initial encounter ([facility]); evaluate TECHNIQUE: ??FLUOROSCOPICALLY GUIDED RIG HT HIP INJECTION COMPARISON: Right hip x-rays 03/13/2020 FINDINGS: Informed, written consent was obtained f rom the patient including the risks and benefits of the procedure. All questions were answered. A timeout was performed before the procedure. Patient was placed supine on the fluoros copic table. Proper site was marked and the area was prepped and draped in the usual sterile fashion. Local anesthesia was achieved with 1% lidocaine. Under fluor oscopic guidance, a 20-gauge spinal need le was advanced into the right hip joint until it contacted the femoral neck component of hip arthroplasty. No spontaneous or manual aspiration of joint fluid could be obtained. Needle was then withdrawn. No immediate postprocedural complication s. Total fluoroscopy time was less than 1 minute. Procedure Note Scott Rice MD - 03/20/2020Formatti ng of this note might be different from the original. EXAM: FLUOROSCOPICALLY GUIDED RIGHT HIP INJECTION DATE AND TIME OF EXAM: 03/20/2020 10:12 AM HISTORY: M25.551 - Pain in right hip; T84.010A - Broken internal right hip pro sthesis, initial encounter ([facility]); evaluate TECHNIQUE: FLUOROSCOPICALLY GUIDED RIGHT HIP INJECTION COMPARISON: Right hip x-rays 03/13/2020 FINDINGS: Informed, written consent was obtained f rom the patient including the risks and benefits of the procedure. All questions were answered. A timeout was performed before the procedure. Patient was placed supine on the fluoros copic table. Proper site was marked and the area was prepped and draped in the usual sterile fashion. Local anesthesia was achieved with 1% lidocaine. Under fluoroscopic guidance, a 20-gauge spinal needle was a dvanced into the right hip joint until it contacted the femoral neck component of hip arthroplasty. No spontaneous or manual aspiration of joint fluid could be obtained. Needle was then withdrawn. No immediate postprocedural complication s. Total fluoroscopy time was less than 1 minute. IMPRESSION: Unsuccessful fluoroscopically guided rig ht hip aspiration. ATTENDING RADIOLOGIST: Scott Rice MD I was present for the entire procedure. I personally reviewed the associated images and agree with the findings. Paramjit Marr MD IMG FLUOROSCOPY ORDERABLES documented in this encounter Visit Diagnoses Diagnosis Right hip pain Pain in joint, pelvic region and thigh Failure of right total hip arthroplasty, initial encounter ([facility]) documented in this encounter Administered Medications Inactive Administered Medications - up to 3 most recent administrations Medication Order MAR Action Action Date Dose Rate Site lidocaine 1 % injection 10 Given by Other 03/20/2020 10:17 AM THRESHING DEPARTMENT SUPERVISOR 10 mLs Other mL 10 mL Once, Intradermal, On Wed03/20/20 at 1115, For 1 dose documented in this encounter Care Teams Operations Section Manager Relationship Specialty Start Date End Date None, No Pcp PCP - General Family Medicine 03/13/20 04/14/20 [address] [facility] [place] [address] documented as of this encounter
--- OUTSIDE RECORDS SUMMARY | 2022-02-01 20:30 | XMS_ITS | Encounter Summary ---
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 documented in this encounter Results XR Hip WWO Pelvis Right 2 or 3 Views (03/13/2020 9:25 AM BIOPHYSICS TEACHER) Anatomical Region Laterality Modality Hip, Pelvis Digital Radiography Specimen (Source) Anatomical Collection Method Collection Time Re ceived Time Location / / Volume Laterality 03/13/2020 9:50 AM BIOPHYSICS TEACHER Impressions 03/13/2020 9:53 AM BIOPHYSICS TEACHER IMPRESSION: ?? 1. ??Postoperative changes of right hip arthroplasty with periprosthetic fracture of the proximal femur as described above. The proximal cerclage wire appears incomplete. Remaining hardware appears intact. 2. ??Other findings as above. Attending Name:Vern Negrete D.O. Narrative 03/13/2020 9:53 AM BIOPHYSICS TEACHER RADIOLOGICAL EXAM: ??XR HIP WWO PELVIS RIGHT 2 OR 3 VIEWS DATE AND TIME OF EXAM: ??03/13/2020 9:14 AM Clinical History: previous rt hip surger y M25.551 - Pain in right hip TECHNIQUE:XR HIP WWO PELVIS RIGHT 2 OR 3 VIEWS COMPARISON: none FINDINGS: Postoperative changes of right hip arthr oplasty with multiple cerclage wires transfixing a periprosthetic fracture deformity of the proximal femur. There is some medial displacement of the fracture frag ments about the medial aspect of the fem oral component. The greater trochanteric fracture fragment demonstrates mild lateral displacement. Osseous defect is also noted about the medial aspect of the fem oral prosthesis. The superiormost cercla ge wire appears discontinuous. Hardware otherwise appears intact. No acute fracture of the visualized pelvis is appreciated. Osteoarthritis of the left hip. Procedure Note Sabino Negrete MD - 03/13/2020Form atting of this note might be different from the original. RADIOLOGICAL EXAM: XR HIP WWO PELVIS RIG HT 2 OR 3 VIEWS DATE AND TIME OF EXAM: 03/13/2020 9:14 A M Clinical History: previous rt hip surger y M25.551 - Pain in right hip TECHNIQUE:XR HIP WWO PELVIS RIGHT 2 OR 3 VIEWS COMPARISON: none FINDINGS: Postoperative changes of right hip arthr oplasty with multiple cerclage wires transfixing a periprosthetic fracture deformity of the proximal femur. There is some medial displacement of the fracture fragments about the medial aspect of the femoral compone nt. The greater trochanteric fracture fragment demonstrates mild lateral displacement. Osseous defect is also noted about the medial aspect of the femoral prosthesis. The superiormost cerclage wire appears disco ntinuous. Hardware otherwise appears intact. No acute fracture of the visualized pelvis is appreciated. Osteoarthritis of the left hip. IMPRESSION: 1. Postoperative changes of right hip ar throplasty with periprosthetic fracture of the proximal femur as described above. The proximal cerclage wire appears incomplete. Remaining hardware appears intact. 2. Other findings as above. Attending Name:Vern Negrete D.O. Paramjit Marr MD IMG DIAGNOSTIC IMAGING ORDER BABAK documented in this encounter Visit Diagnoses Diagnosis Right hip pain Pain in joint, pelvic region and thigh documented in this encounter Care Teams Refrigerated Company Driver Relationship Specialty Start Date End Date None, No Pcp PCP - General Family Medicine 03/13/20 04/14/[address] [place] [address] documented as of this encounter
--- OUTSIDE RECORDS SUMMARY | 2022-02-01 20:30 | XMS_ITS | Encounter Summary ---
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
--- OUTSIDE RECORDS SUMMARY | 2022-02-01 20:30 | XMS_ITS | Encounter Summary ---
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 encounter Medications at Time of Discharge Medication Sig Dispensed Refills Start Date End Date Ascorbic Acid (VITAMIN Take 1,000 mg by 0 C) 1000 MG tablet mouth daily AZO-CRANBERRY PO Take by mouth 0 Biotin 71072 MCG TABS Take 25,000 mcg by 0 [...] Inject 40 mg into 11.2 mL 0 04/18/20 20 05/16/2020 injection the skin daily for 28 days gabapentin (NEURONTIN) Take 1 capsule by 90 capsule 6 201904/10/2021 300 mg capsule mouth 3 times daily rOPINIRole (REQUIP) 2 MG Take 1 tablet by 0 04/1804/18/2021 tablet mouth daily as needed (restless legs) Ascorbic Acid (VITAMIN Take by mouth 0 05/31/2019 04/18/2020 C) 1000 MG tablet aspirin 81 mg EC tablet Take 81 mg by mouth 0 04/18/2020 daily dextrose 5 % SOLN 1,000 Inject into the vein 0 04/18/2020 mL with MULTI-12 IV INJ daily 10 mL diclofenac (VOLTAREN) 75 Take 75 mg by mouth 0 04/18/2020 mg EC tablet 2 times daily gabapentin (NEURONTIN) Take 1 capsule by 90 capsule 6 201904/18/2020 300 mg capsule mouth 3 times daily HYDROcodone-acetaminophe Take 1 tablet by 0 04/18/2020 n (NORCO) 5-325 MG per mouth every 6 hours tablet as needed for Pain HYDROcodone-homatropine Take 5 mLs by mouth 0 04/18/2020 (HYCODAN) 5-1.5 MG/5ML every 6 hours as syrup needed mirtazapine (REMERON) 15 Take 15 mg by mouth 0 11/27/2021 mg tablet nightly nebivolol (BYSTOLIC) 5 Take 5 mg by mouth 0 11/27/2021 MG tablet daily oxycodone-acetaminophen Take 1 tablet by 45 tablet 0 201905/08/2020 (PERCOCET) 10-325 MG per mouth every 8 hours tablet as needed Max Daily Amount: 3 tablets potassium chloride 20 Inject into the vein 0 04/18/2020 MEQ/50ML IVPB once POTASSIUM PO Take by mouth 0 0 Probiotic Product Take by mouth 0 11/01 (PROBIOTIC-10 ULTIMATE) CAPS telmisartan (MICARDIS) Take 80 mg by mouth 0 11/27/2021 80 MG tablet daily telmisartan-hydrochlorot Take 1 tablet by 0 04/18/2020 hiazide (MICARDIS HCT) mouth daily 80-25 MG per tablet Turmeric 500 MG CAPS Take by mouth 0 1 06/19/2019 documented as of this encounter Plan of Treatment Upcoming Encounters Date Type Specialty Care Team Description 03/11/2022 Office Visit Orthopaedics Kasey Hassan MD [address] [facility], [place] [address] (Wo rk) documented as of this encounter Procedures Procedure Name Priority Date/Time Associated Diagnosis Comme nts XR HIP WWO PELVIS Routine 04/10/2020 7:43 AM Right hip pain Re sults for this RIGHT 2 OR 3 VIEWS PATENT LAWYER procedure are in the results section. 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 ?? RESIDENT RADIOLOGIST: ATTENDING RADIOLOGIST: Malcom Munroe Narrative 04/10/2020 9:15 AM PATENT LAWYER RADIOLOGIC EXAM: XR HIP WWO PELVIS RIGHT 2 OR 3 VIEWS DATE AND TIME OF EXAMINATION: 04/10/2020 7:32 AM CLINICAL HISTORY: M25.551 - Pain in righ t hip ?? COMPARISON: 03/13/2020 TECHNIQUE:XR HIP WWO PELVIS RIGHT 2 OR 3 VIEWS FINDINGS: Unchanged right hip total arthroplasty. Displaced cortical fracture fragments along the medial aspect of the prosthesis including the lesser tuberosity, unchanged from prior. Displaced greater trochante aashish fragment, unchanged. Fracture superi or cerclage wire, unchanged. Procedure Note Pedro Mckeon MD - 04/10/2020F ormatting of this note might be different from the original. RADIOLOGIC EXAM: XR HIP WWO PELVIS RIGHT 2 OR 3 VIEWS DATE AND TIME OF EXAMINATION: 04/10/2020 7:32 AM CLINICAL HISTORY: M25.551 - Pain in righ t hip COMPARISON: 03/13/2020 TECHNIQUE:XR HIP WWO PELVIS RIGHT 2 OR 3 VIEWS FINDINGS: Unchanged right hip total arthroplasty. Displaced cortical fracture fragments along the medial aspect of the prosthesis including the lesser tuberosity, unchanged from prior. Displaced greater trochanteric fragment, unchanged. Fracture superior cerclage wi re, unchanged. IMPRESSION: Unchanged right hip total arthroplasty w ith periprosthetic fracture fragments. RESIDENT RADIOLOGIST: ATTENDING RADIOLOGIST: Malcom Munroe Kasey Hassan MD IMG DIAGNOSTIC IMAGING ORDER BABAK documented in this encounter Visit Diagnoses Diagnosis Right hip pain Pain in joint, pelvic region and thigh documented in this encounter Care Teams Assurance Analyst Relationship Specialty Start Date End Date None, No Pcp PCP - General Family Medicine 03/13/20 04/14/20 [address] [place] [facility] [address] documented as of this encounter
--- OUTSIDE RECORDS SUMMARY | 2022-02-01 20:30 | XMS_ITS | Encounter Summary ---
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 Topic: Clinical Question/Request - Medical Concern/Question >> Mar 27, 2020 2:08 PM Fabiana Valdez wrote: Patient calling, states she has a broken leg, but now the pain is unbearable and can put no weight on it, needs to speak to you evelina, said she isn't sure why the pain is increasing, has appt with Dr. Hassan next week. Returned call to the patient, advised there is no one here in clinic to see her, clinics are closed until Wednesday, advised to take the [place] she has, pt denies falling or taking a wrong step, states thepain actually started with the aspiration, feels like fire. Also, advised to take Ibuprofen if shecan, in between doses of pain meds, if pain is still unbearable, ED. Pt v/u. CTOR BUSINESS MANAGEMENT documented in this encounter Plan of Treatment Upcoming Encounters Date Type Specialty Care Team Description 03/11/2022 Office Visit Orthopaedics Kasey Hassan MD [address] [facility] [place], [place] [address] (Wo rk) documented as of this encounter Visit Diagnoses Not on filedocumented in this encounter Care Teams Hydraulic Operator Relationship Specialty Start Date End Date None, No Pcp PCP - General Family Medicine 03/13/20 04/14/20 [address] [place] [address] documented as of this encounter
--- OUTSIDE RECORDS SUMMARY | 2022-02-01 20:30 | XMS_ITS | Encounter Summary ---
:1955 Author Organization [facility] Address [address] [place] [facility] [place] [address] Phone Care Team Providers Name Role Phone Anabelle Yost MD Primary Care Provider Reason for Visit Auth/Cert Specialty Diagnoses / Procedures Referred By Contact Refer red To Contact Diagnoses Other fracture of right femur, initial encounter for closed fracture (HCC) Other fracture of right femur, initial encounter for closed fracture (HCC) [S72.8X1A] Procedures NC REVISE TOTAL HIP REPLACEMENT NC INSERT DRUG IMPLANT DEVICE REVISE TOTAL HIP INSERTION ANTIBIOTIC BEADS/SPACERS HIP Referral ID Status Reason Start Date Expiration Date Visits Requ ested Visits Authorized [id number] 1 1 Encounter Details Date Type Department Care Team Description 04/15/2020 Surgery ADULT OR Kasey Hassan MD REVISE TOTAL HIP TO [address] [facility] [address] [facility] [place] [address] JUAN, [id number] REPLACEMENT/TOTAL [phone] ONCOLOGIC HIP (Work) REPLACEMENT Surgery Details Date/Time Status Location OR Service Patient Case Class Case Tr auma Class Type Case? 04/15/20 7:15 Posted ADULT OR OR 06 Orthopedics Surgery Elective No AM Admit Panel 1 Procedure LRB Anes Op Region Wound Class Commen ts REVISE TOTAL HIP TO PROXIMAL FEMUR Right General Hip 1 -Clean REPLACEMENT/TOTAL ONCOLOGIC HIP REPLACEMENT INSERTION CEMENT RIGHT HIP Right General Hip 1-Clean Surgeon Surgeon Role Service Panel Kasey Hassan MD Primary Orthopedics 1 Kasey Hassan MD Primary Orthopedics 1 Special Needs LATERAL ON REGULAR TABLE, IVANNA SIM JEANCARLOSMilton GIRON ALLYSONPT WILL ARRIVE AT 0600 documented in this encounter Social History Tobacco [...] at Date Recorded Female 04/08/2020 10:19 AM CERTIFIED ANESTHESIOLOGIST ASSISTANT documented as of this encounter Last Filed Vital Signs Vital Sign Reading Time Taken Comments Blood Pressure 138/82 04/15/2020 6:52 AM CERTIFIED ANESTHESIOLOGIST ASSISTANT Pulse 79 04/15/2020 6:52 AM CERTIFIED ANESTHESIOLOGIST ASSISTANT Temperature 36.8 ??C (98.3 ??F) 04/15/2020 6:52 AM CERTIFIED ANESTHESIOLOGIST ASSISTANT Respiratory Rate 19 04/15/2020 6:52 AM CERTIFIED ANESTHESIOLOGIST ASSISTANT Oxygen Saturation 95% 04/15/2020 6:52 AM CERTIFIED ANESTHESIOLOGIST ASSISTANT Inhaled Oxygen Concentration - - Weight 141.5 kg (312 lb) 04/15/2020 6:52 AM CERTIFIED ANESTHESIOLOGIST ASSISTANT Height 172.7 cm (5' 8) 04/15/2020 6:52 AM CERTIFIED ANESTHESIOLOGIST ASSISTANT Body Mass Index 47.44 04/15/2020 6:41 PM CERTIFIED ANESTHESIOLOGIST ASSISTANT documented in this encounter Discharge Summaries Kerrie [...] adult (HCC) Inflammatory breast cancer, unspecified laterality (HCC) Diabetes mellitus ([facility]) On Admission: History of Present Illness: Sarah [...] a past medical history of Arthritis, Cancer ([facility]), Depression ([facility]), Diabetes mellitus ([facility]), and High blood pressure ([facility]). Hospital Course: Patient was admitted to the [...] discharge to swing bed. Patient accepted to [facility] for placement at discharge. She was transitioned to a prevena pump with good seal for DC. RAGINI drains with good suction. Patient will follow up with Ortho SUPPORT TECHNICIAN in 1 week for wound vac removal [...] No acute osteomyelitis identified. Consults: PT/OT, social service technician, case management On Discharge: Discharge Condition: Able to complete ADL's with assistance Oriented to Person, Place and Time Significant Discharge Physical Exam: RLE: RAGINI drain x2 in place with s/s output Incisional VAC x1 in place with no output Expected TTP at incision site SILT T/DP/SP / EHL/FHL, 09/04 GS/TA +2 DP, BCR to exposed toes ?? LUE: Swelling to forearm improving with elevation Several areas of deroofed blisters covered in Xeroform SILT M/R/U / AIN/PIN/U +2 radial, BCR to exposed fingers [...] cultures preliminary at discharge Disposition: Discharged to [facility] Shelter Facility Is inpatient Readmission Planned [...] daily AZO-CRANBERRY PO Take by mouth Biotin 85296 MCG TABS Take 25,000 mcg by mouth [...] NP PAV AORT PAV Follow-up with Ortho SUPPORT TECHNICIAN in 1 week for wound vac removal and drain check Return precautions: Patient was instructed to call the clinic at [phone] if before 4:30pm and ask for the [...] Signed: Kerrie Vidal NP 04/18/2020 10:44 AM IFIED ANESTHESIOLOGIST ASSISTANT Associated attestation - Kasey Hassan MD - 04/18/2020 5:12 PM CERTIFIED ANESTHESIOLOGIST ASSISTANT ATTENDING ATTESTATION: I saw and evaluated the patient. I agree with the findings and plan as documented in the note Kasey Hassan documented in this encounter Discharge Instructions Discharge InstructionsMihaela Benitez RN - 04/18/2020 10:53 AM CST DISCHARGE INSTRUCTIONS Note: Two copies of this document will be printed and signed, one for the patient and one for the patient's medical record. Home Discharge Plan of Care: Another institution-swing bed/hospital Vaccinations: Pneumococcal vaccination date given 04/15/20 Discharge Planning Consults: Social Service Consult Gen Shah Date 04/18/20 and Other Consults: PT/OT Date 04/17/20 Activity: Activity as tolerated Equipment: To be determined at next level of care Diet: Regular diet Other Instructions: see above instructions Discharge Blood Pressure: BP Readings from Last 1 Encounters: 04/18/20 130/59 Weight: Discharge Wt: Wt Readings from Last 1 Encounters: 04/15/20 (!) 141.5 kg (312 lb) Admission Wt: 312lb IFIED ANESTHESIOLOGIST ASSISTANT documented in this encounter Medications at Time of Discharge Medication Sig Dispensed Refills Start Date End Date Ascorbic Acid (VITAMIN Take 1,000 mg by 0 C) 1000 MG tablet mouth daily AZO-CRANBERRY PO Take by mouth 0 Biotin 24949 MCG TABS Take 25,000 mcg by 0 [...] documented as of this encounter Progress Notes CARIN Maloney/Armando - 04/18/2020 1:30 PM CST 04/18/20 1330 [...] chair/wheelchair (Pt being transported via wheelchair to SNF wheelchair van) Pain Assessment Pain Assessment 0-10 [...] as pt discharged from hospital this date. IFIED ANESTHESIOLOGIST ASSISTANT Kerrie Vidal NP - 04/18/2020 10:22 AM CST TB Signs and Symptoms Assessment Does the patient have any of the following? A cough: No Hemoptysis:No Chest Pains:No Weight Loss:No Fever:No Weakness:No Loss of Appetite:No Difficulty Breathing:No Night Sweats:No If any questions are answered yes, please add comments: 1. The patient is safe for intermediate/swingbed admit Kerrie Vidal NP 04/18/2020 IFIED ANESTHESIOLOGIST ASSISTANT Angel Arauz MD - 04/18/2020 8:13 AM [...] Expected TTP at incision site SILT T/DP/SP / EHL/FHL, 09/04 GS/TA +2 DP, BCR to exposed toes LUE: Swelling to forearm improving with elevation Several areas of deroofed blisters covered in Xeroform SILT M/R/U 09/04 AIN/PIN/U +2 radial, BCR to exposed fingers Recent Labs 04/16/20 0435 04/17/20 0458 04/18/20 0515 HGB 8.9* [...] PT/OT. Pain control. [facility]. Cultures will finalize today and plan to de-escalate antibiotics if negative. IFIED ANESTHESIOLOGIST ASSISTANT Belia Moe DPT - 04/17/2020 11:39 AM [...] RN;Patient in bed upon arrival;Family/visitor(s)/sitter present (Patient's [id number] present during therapy session ) End of [...] Functional Mobility;Gait Training;Therapeutic Activities;Strengthening;Patient/Caregiver Education;Balance Training;Discharge Needs IFIED ANESTHESIOLOGIST ASSISTANT JAME Maloney - 04/17/2020 11:38 AM CST 04/17/20 1138 [...] Care. Plan Comments Continue with OT POC. IFIED ANESTHESIOLOGIST ASSISTANT Kerrie Vidal NP - 04/17/2020 7:45 AM CST Orthopaedic Surgery [...] Expected TTP at incision site SILT T/DP/SP / EHL/FHL, 5/ GS/TA +2 DP, BCR to [...] finalized and patient is accepted to swingbed. Maribell Vidal, BLANKING MACHINE OPERATOR-C [phone] IFIED ANESTHESIOLOGIST ASSISTANT Angel Arauz MD - 04/17/2020 7:16 AM [...] toes Recent Labs 04/15/20 1530 04/16/20 0435 04/17/208 HGB -- 8.9* 8.2* HCT 35.7* 28.0* [...] Pain control. F/u cultures. Monitor drain output. IFIED ANESTHESIOLOGIST ASSISTANT Associated attestation - Kasey Hassan MD - 04/17/2020 5:03 PM CERTIFIED ANESTHESIOLOGIST ASSISTANT ATTENDING ATTESTATION: I saw and evaluated the patient. I agree with the findings and plan as documented in the note Ksaey Hassanothy Maribell Vidal NP - 04/16/2020 1:51 PM CST Notified [...] this time. She did request having a titrator visit if possible. Maribell Vidal, BLANKING MACHINE OPERATOR-C [phone] IFIED ANESTHESIOLOGIST ASSISTANT Gilbert Boone OTR/Armando - 04/16/2020 9:45 AM CST 04/16/20 0945 Session Infomation OT Received On 04/16/20 Type of Session OT Evaluation Number of Face to Face Visits Today 2 Number of Sessions this Week 1 Visit 1: Start Time 904 Visit 1: Stop Time 905 (RN giving meds) Visit 1: Time Calculation (min) 1 min Visit 2: Start Time 45 Visit 2: Stop Time 1026 Visit 2: [...] Equipment Walker-rolling;Bedside commode Prior Function Level of Ovid Independent/Modified Independent with ADLs;Independent/Modified Independent with Functional [...] with home exercise program and safe progression IFIED ANESTHESIOLOGIST ASSISTANT Belia Moe DPT - 04/16/2020 9:44 AM CST 04/16/20 0944 Session Infomation PT Received On 04/16/20 Type of Session PT Evaluation Number of Face to Face Visits Today 2 Number of Sessions this Week 1 Visit 1: Start Time 905 Visit 1: Stop Time 905 (RN administering meds. PT/OT to return at later time. ) Visit 1: Time Calculation (min) 0 min Visit 2: Start Time 943 Visit 2: Stop Time 102 Visit 2: Time Calculation (min) 42 min [...] Equipment Bedside commode;Walker-rolling Prior Function Level of Ovid Independent/Modified Independent with ADLs;Independent/Modified Independent with Functional [...] verbalize understanding;Patient will demonstrate understanding;Hip precautions;Without cues IFIED ANESTHESIOLOGIST ASSISTANT Kerrie Vidal NP - 04/16/2020 8:10 AM [...] at incision site SILT T/DP/SP 5/5 EHL/FHL, 5/ GS/TA +2 DP, BCR to [...] will remain inpatient until culturesfinal on 04/18. Maribell Vidal, BLANKING MACHINE OPERATOR-C [phone] IFIED ANESTHESIOLOGIST ASSISTANT Angel Arauz MD - 04/16/2020 5:51 AM [...] Pain control. F/u cultures. Monitor drain output. IFIED ANESTHESIOLOGIST ASSISTANT Associated attestation - Kasey Hassan MD - 04/16/2020 2:38 PM CERTIFIED ANESTHESIOLOGIST ASSISTANT ATTENDING ATTESTATION: I saw and evaluated the patient. I agree with the findings and plan as documented in the note Kasey Hassan. Angel Arauz MD - 04/15/2020 2:48 PM [...] Pain control. F/u cultures. Monitor drain output. IFIED ANESTHESIOLOGIST ASSISTANT documented in this encounter H&P Notes Kasey [...] and the patient gave their written consent. IFIED ANESTHESIOLOGIST ASSISTANT Source Note - BJORN Tejeda - 04/10/2020 8:15 AM CERTIFIED ANESTHESIOLOGIST ASSISTANT HPI: Sarah Doran presents today as a [...] Surgical History: Procedure Laterality Date ??? HYSTERECTOMY 1998 Family History: Family History Problem Relation Age [...] file Gets together: Not on file Attends shinto service: Not on file Active member of [...] by mouth, Disp: , Rfl: ??? Biotin 74840 MCG TABS, Take 25,000 mcg by mouth, [...] instructions. Code Status: Full Code BJORN Tejeda IFIED ANESTHESIOLOGIST ASSISTANT documented in this encounter Consult Notes Kasey [...] you for the consult, Kasey Dinero PharmD [id number] IFIED ANESTHESIOLOGIST ASSISTANT Kasey Dinero PharmD - 04/17/2020 1:21 PM CST Pharmacokinetics Consult [...] you for the consult, Kasey Dinero PharmD [id number] IFIED ANESTHESIOLOGIST ASSISTANT Bisi Roland RN - 04/17/2020 10:41 AM CSTAssociated Order(s): IP CONSULT TO PICC TEAM VASCULAR ACCESS TEAM Date:April 17, 2020 Time: 1040 Consulted for vascular access. A 20 gauge angiocath started LFA using ultrasound guidance with bloodreturn noted and flushes easily, ready for use. Bisi Roland RN [facility] Adult Vascular Access Team IFIED ANESTHESIOLOGIST ASSISTANT Kasey Dinero PharmD - 04/16/2020 8:49 AM [...] you for the consult, Kasey Dinero PharmD [id number] IFIED ANESTHESIOLOGIST ASSISTANT HILLARY Mendoza - 04/16/2020 8:47 AM CSTAssociated Order(s): IP CONSULT TO SOCIAL WORK; IP CONSULT TO CASE MANAGEMENT Texture Artist aware of consults. Patient will be assessed to assist with identifying anticipated discharge needs. IFIED ANESTHESIOLOGIST ASSISTANT documented in this encounter Miscellaneous Notes Consult Follow-up - HILLARY Mendoza - 04/18/2020 12:03 PM CST 04/18/20 1201 Electric Golf Cart RepairersTwister Tender Paper Information Patient expects to be discharged to: [facility] Type Shelter Facility Contact Name and Phone number Salina Martinez [phone] Current/Future Living Arrangements Patient lives alone. Family Member/Guardian Notified? Yes Family Member Name Cammy Doran (Daughter) Family Member Contact Number [phone] [facility] wheelchair van will orange picker machine operator Patient at 1:30, IFIED ANESTHESIOLOGIST ASSISTANT Plan of Care - HILLARY Mendoza - [...] appropriate transportation to post-acute venues. Outcome: Completed Texture Artist contacted Salina Gannon with [facility] and confirmed that they can accept Patient today and provide wheelchair van transportation at 1:30. SW met with Patient and her daughter (Cammy) and informed them. SW allowed Patient to review and sign her Medicare IM letter. SW faxed discharge summary (AVS) and updated records to [facility] through edischarge. TYLER gaveNlayla Schultzey the number to call report. No additional SW needs identified at this time. IFIED ANESTHESIOLOGIST ASSISTANT Plan of Care - Mihaela Benitez RN - 04/18/2020 11:27 AM CST Discharge material reviewed with pt and family. Both verbalize understanding and deny any questions at this time. Written instructions and prescriptions provided to pt. Wound vac intact to RLE without complications along with two RAGINI's. Pt awaiting receiving facility to arrive for discharge transportation. IFIED ANESTHESIOLOGIST ASSISTANT Plan of Care - Daniela Webber RN - 04/17/2020 7:46 PM CST Problem: Adult Fall Risk and [place] Fall Precautions Goal: Fall risk and related [...] patient to make position changes slowly. 7. [place] patients to their bed areas, unit facilities, and how to get assistance. 8. Educate patient and family regarding the armband procedure. Instruct patient & family about fall prevention measures to use at home. 9. Patient education materials to be given to patient and family. Outcome: Progressing Goal: [place] Fall Precautions (all patients) Description: INTERVENTIONS: 1. [...] or patient reports new pain Outcome: Progressing IFIED ANESTHESIOLOGIST ASSISTANT Plan of Care - Belia Moe DPT - 04/17/2020 11:39 AM CST Problem: Physical Therapy - Adult Goal: By Discharge: Performs mobility at highest level of function for planned discharge setting. See evaluation for individualized goals. Flowsheets (Taken 04/17/2020 6324) Discharge Recommendations: Placement for continued skilled PT [...] per Plan of Care. Ongoing therapy 3-5x/week IFIED ANESTHESIOLOGIST ASSISTANT Plan of Care - CARIN Maloney/Armando - 04/17/2020 11:38 AM CST Problem: Occupational Therapy - Adult Goal: By Discharge: Performs self-care activities at highest level of function for planned dischargesetting. See evaluation for individualized goals. Flowsheets (Taken 04/17/2020 1138) OT Discharge Recommendations: Placement for continued skilled [...] identified problems, as per Plan of Care. IFIED ANESTHESIOLOGIST ASSISTANT Plan of Care - Sachi Jones RN [...] or lower unless otherwise indicated by MD restoration ecologist 5. Manage moisture, nutrition, and friction and shear 6. Use pressure reduction device if bed or chair bound Outcome: Progressing Problem: HDS Fall Risk Goal: High Risk (HDS score >/=15) Description: INTERVENTIONS: 1. Follow [place] Fall Precautions 2. Place yellow FALL RISK [...] isolation precautions for identified infection/condition Outcome: Progressing IFIED ANESTHESIOLOGIST ASSISTANT Plan of Care - Daniela Webber RN - 04/16/2020 7:55 PM CST Problem: Adult Fall Risk and [place] Fall Precautions Goal: Fall risk and related [...] patient to make position changes slowly. 7. [place] patients to their bed areas, unit facilities, and how to get assistance. 8. Educate patient and family regarding the armband procedure. Instruct patient & family about fall prevention measures to use at home. 9. Patient education materials to be given to patient and family. Outcome: Progressing Goal: [place] Fall Precautions (all patients) Description: INTERVENTIONS: 1. [...] or patient reports new pain Outcome: Progressing IFIED ANESTHESIOLOGIST ASSISTANT Plan of Care - Magnolia Arnold RN [...] or lower unless otherwise indicated by MD restoration ecologist 5. Manage moisture, nutrition, and friction and [...] or lower unless otherwise indicated by MD restoration ecologist 5. Keep individual off trochanter (hip) or wound with positioning of 30 degrees or below 6. Manage moisture, nutrition, and friction and shear 7. Use pressure reduction device if bed or chair bound 8. DO NOT massage bony prominences Outcome: Progressing Problem: Adult Fall Risk and [place] Fall Precautions Goal: Fall risk and related [...] patient to make position changes slowly. 7. [place] patients to their bed areas, unit facilities, and how to get assistance. 8. Educate patient and family regarding the armband procedure. Instruct patient & family about fall prevention measures to use at home. 9. Patient education materials to be given to patient and family. Outcome: Progressing Goal: [place] Fall Precautions (all patients) Description: INTERVENTIONS: 1. [...] isolation precautions for identified infection/condition Outcome: Progressing IFIED ANESTHESIOLOGIST ASSISTANT Consult Follow-up - HILLARY Mendoza - 04/16/2020 11:19 AM CST Texture Artist obtained Patient's Shelter Facility choices of [facility], [facility], and [facility]. Referrals made to each through edischarge. IFIED ANESTHESIOLOGIST ASSISTANT Plan of Care - HILLARY Mendoza - [...] appropriate transportation to post-acute venues. Outcome: Progressing IFIED ANESTHESIOLOGIST ASSISTANT Consult Follow-up - HILLARY Mendoza - 04/16/2020 [...] Patient Already Has None Primary Caregiver Self Machine Rug Cleaner Phone Number daughter-Cammy Mills [phone] and son-Shekhar Doran [phone] Primary Care Information Primary Care Physician's Name Dr. Anabelle Yost Pharmacy's Name [facility] Activities of Daily Living- Prior to Admission Assistive Device/Equipment Bedside commode;Rolling Walker;Wheelchair;Other (Comment) (wc with elr) Living Arrangement Lives alone Ambulation Independent Dressing Independent Feeding Independent Behavior Oriented Communication Can write;Talks;Understands speaking;Understands Swiss;Reads Anticipated Discharge Needs Expected Discharge Date 04/19/20 [...] Suicide. This was shared with RAFAEL Vidal. IFIED ANESTHESIOLOGIST ASSISTANT Plan of Care - CARIN Maloney/Armando - 04/16/2020 9:45 AM CST Problem: Occupational Therapy - Adult Goal: By Discharge: Performs self-care activities at highest level of function for planned dischargesetting. See evaluation for individualized goals. Flowsheets (Taken 04/16/2020 0929) OT Discharge Recommendations: Placement for continued skilled [...] independence. Duration of Therapy: Ongoing therapy 1-5x/week IFIED ANESTHESIOLOGIST ASSISTANT Plan of Care - Belia Moe DPT - 04/16/2020 9:44 AM CST Problem: Physical Therapy - Adult Goal: By Discharge: Performs mobility at highest level of function for planned discharge setting. See evaluation for individualized goals. Flowsheets (Taken 04/16/2020 0975) Discharge Recommendations: Placement for continued skilled PT [...] per Plan of Care. Ongoing therapy 3-5x/week IFIED ANESTHESIOLOGIST ASSISTANT Plan of Care - Magnolia Arnold RN [...] or lower unless otherwise indicated by MD restoration ecologist 5. Manage moisture, nutrition, and friction and [...] or lower unless otherwise indicated by MD restoration ecologist 5. Keep individual off trochanter (hip) or wound with positioning of 30 degrees or below 6. Manage moisture, nutrition, and friction and shear 7. Use pressure reduction device if bed or chair bound 8. DO NOT massage bony prominences Outcome: Progressing Problem: Adult Fall Risk and [place] Fall Precautions Goal: Fall risk and related [...] patient to make position changes slowly. 7. [place] patients to their bed areas, unit facilities, and how to get assistance. 8. Educate patient and family regarding the armband procedure. Instruct patient & family about fall prevention measures to use at home. 9. Patient education materials to be given to patient and family. Outcome: Progressing Goal: [place] Fall Precautions (all patients) Description: INTERVENTIONS: 1. [...] (HDS score 11-14) Description: INTERVENTIONS: 1. Follow [place] Fall Precautions 2. Place yellow FALL RISK [...] outside the patient door Outcome: Progressing Goal: [place] High Risk Precautions sedated/comatose patients in ICU [...] isolation precautions for identified infection/condition Outcome: Progressing IFIED ANESTHESIOLOGIST ASSISTANT Plan of Care - Daniela Webber RN - 04/15/2020 7:35 PM CST Problem: Adult Fall Risk and [place] Fall Precautions Goal: Fall risk and related [...] patient to make position changes slowly. 7. [place] patients to their bed areas, unit facilities, and how to get assistance. 8. Educate patient and family regarding the armband procedure. Instruct patient & family about fall prevention measures to use at home. 9. Patient education materials to be given to patient and family. Outcome: Progressing Goal: [place] Fall Precautions (all patients) Description: INTERVENTIONS: 1. [...] or patient reports new pain Outcome: Progressing IFIED ANESTHESIOLOGIST ASSISTANT Plan of Care - Magnolia Arnold RN - 04/15/2020 7:21 PM CST ND notified of wound vac leakage MD stated would come back to floor in a few min. And check on it, IFIED ANESTHESIOLOGIST ASSISTANT Op Note - Kasey Hassan MD - [...] biopsy right femur periprosthetic fracture, CPT Code 32749 2. Resection right proximal femur for infection/necrotic bone, CPT Code 83761 3. Revision right total hip to constrained proximal femur replacement, CPT Code 95273, 22 modifier 4. Complex soft tissue rearrangement to salvage greater troch sling and fixation to implant with gluteus medius mobilization, CPT Code 96444 5. Placement of antibiotic drug delivery device (coat implant in antibiotic cement), CPT Code 48749 Anesthesia: General Endotracheal Anesthetic Surgeon(s) and Role: * Kasey Hassan MD - Primary Surgical Staff: Head Doffer: Melanie Gupta RN; Cinthya Ritchie RN Relief Scrub: Jillian Vallejo Back Closer: Sachi Bartholomew Topper Press Operator: Angel Arauz MD Implant(s): see below Specimen(s): [...] biopsy right femur periprosthetic fracture, CPT Code 77323 2. Resection right proximal femur for infection/necrotic bone, CPT Code 92766 3. Revision right total hip to constrained proximal femur replacement, CPT Code 27857, 22 modifier 4. Complex soft tissue rearrangement to salvage greater troch sling and fixation to implant with gluteus medius mobilization, CPT Code 68983 5. Placement of antibiotic drug delivery device (coat implant in antibiotic cement), CPT Code 41654 SURGEON: Kasey Hassan MD - Orthopaedic Oncology [...] 32 mm, +5, 12/14 taper 5. DePuy Alfred GVF poly constrained acetabular liner: +4 neutral: [...] on code for osteoarticular allograft CPT code 04390 which increases reimbursement 18-31% from standard revision [...] verified. She was then taken back to [facility] and placed in supine position on the [...] from the wound bed and sent to group health [facility] for fresh specimen. The implant was found [...] appropriate 5. Await final pathology and cultures IFIED ANESTHESIOLOGIST ASSISTANT documented in this encounter Plan of Treatment Upcoming Encounters Date Type Specialty Care Team Description 03/11/2022 Office Visit Orthopaedics Kasey Hassan MD [address], [place] [address] (Wo rk) Scheduled Referrals Name [...] 04/18/2020 11:00 Results for this (FINGERSTICK) AM CERTIFIED ANESTHESIOLOGIST ASSISTANT procedure are in the results section. HEMOGLOBIN AND Routine 04/18/2020 5:15 AM Results for this HEMATOCRIT, BLOOD CERTIFIED ANESTHESIOLOGIST ASSISTANT procedure are in the results section. POCT GLUCOSE Routine 04/18/2020 4:44 AM Results f or this (FINGERSTICK) CERTIFIED ANESTHESIOLOGIST ASSISTANT procedure are in the results section. POCT GLUCOSE Routine 04/17/2020 8:56 PM Results f or this (FINGERSTICK) CERTIFIED ANESTHESIOLOGIST ASSISTANT procedure are in the results section. POCT GLUCOSE Routine 04/17/2020 3:59 PM Results f or this (FINGERSTICK) CERTIFIED ANESTHESIOLOGIST ASSISTANT procedure are in the results section. VANCOMYCIN, TROUGH Routine 04/17/2020 11:43 Resul ts for this AM CERTIFIED ANESTHESIOLOGIST ASSISTANT procedure are i n the results section. POCT GLUCOSE Routine 04/17/2020 10:49 Results for this (FINGERSTICK) AM CERTIFIED ANESTHESIOLOGIST ASSISTANT procedure are in the results section. ADULT VASC ACCESS Routine 04/17/2020 9:14 AM Resu lts for this ULTRASOUND CERTIFIED ANESTHESIOLOGIST ASSISTANT procedure are i n the results section. SARS-COV-2 RNA PANEL Routine 04/17/2020 8:37 AM R esults for this BY RT-PCR CERTIFIED ANESTHESIOLOGIST ASSISTANT procedure are i n the results section. XR CHEST 1 VIEW Routine 04/17/2020 8:36 AM Other fracture of R esults for this CERTIFIED ANESTHESIOLOGIST ASSISTANT right femur, procedure are i n initial encounter the result s for closed fracture section. (HCC) POCT GLUCOSE Routine 04/17/2020 6:10 AM Results f or this (FINGERSTICK) CERTIFIED ANESTHESIOLOGIST ASSISTANT procedure are in the results section. CBC Routine 04/17/2020 4:58 AM Results f or this CERTIFIED ANESTHESIOLOGIST ASSISTANT procedure are i n the results section. BASIC METABOLIC PANEL Routine 04/17/2020 4:58 AM Results for this CERTIFIED ANESTHESIOLOGIST ASSISTANT procedure are i n the results section. CROSSMATCH PREPARE Routine 04/17/2020 1:00 AM Res ults for this LEUKO RBCS CERTIFIED ANESTHESIOLOGIST ASSISTANT procedure are i n the results section. POCT GLUCOSE Routine 04/16/2020 8:30 PM Results f or this (FINGERSTICK) CERTIFIED ANESTHESIOLOGIST ASSISTANT procedure are in the results section. POCT GLUCOSE Routine 04/16/2020 6:15 PM Results f or this (FINGERSTICK) CERTIFIED ANESTHESIOLOGIST ASSISTANT procedure are in the results section. POCT GLUCOSE Routine 04/16/2020 11:12 Results for this (FINGERSTICK) AM CERTIFIED ANESTHESIOLOGIST ASSISTANT procedure are in the results section. POCT GLUCOSE Routine 04/16/2020 6:31 AM Results f or this (FINGERSTICK) CERTIFIED ANESTHESIOLOGIST ASSISTANT procedure are in the results section. CBC Routine 04/16/2020 4:35 AM Results f or this CERTIFIED ANESTHESIOLOGIST ASSISTANT procedure are i n the results section. BASIC METABOLIC PANEL Routine 04/16/2020 4:35 AM Results for this CERTIFIED ANESTHESIOLOGIST ASSISTANT procedure are i n the results section. POCT GLUCOSE Routine 04/15/2020 10:57 Results for this (FINGERSTICK) PM CERTIFIED ANESTHESIOLOGIST ASSISTANT procedure are in the results section. XR HIP WWO PELVIS Expedited 04/15/2020 6:14 PM Other fracture of Results for this RIGHT 2 OR 3 VIEWS CERTIFIED ANESTHESIOLOGIST ASSISTANT right femur, procedure are in initial encounter the result s for closed fracture section. (HCC) XR FEMUR RIGHT MIN 2 Expedited 04/15/2020 6:14 PM Other fracture of Results for this VIEWS CERTIFIED ANESTHESIOLOGIST ASSISTANT right femur, procedure are i n initial encounter the result s for closed fracture section. ([facility]) HEMATOCRIT Routine 04/15/2020 3:30 PM Results f or this CERTIFIED ANESTHESIOLOGIST ASSISTANT procedure are i n the results section. ANES PERFORMED US Routine 04/15/2020 2:28 PM Resu lts for this REGIONAL/INVASIVE CERTIFIED ANESTHESIOLOGIST ASSISTANT procedure are in the results section. XR PELVIS 1 OR 2 Routine 04/15/2020 1:22 PM Other fracture of Results for this VIEWS CERTIFIED ANESTHESIOLOGIST ASSISTANT right femur, procedure are i n initial encounter the result s for closed fracture section. ([facility]) HC HEMOGLOBIN Routine 04/15/2020 1:15 PM Results for this CERTIFIED ANESTHESIOLOGIST ASSISTANT procedure are i n the results section. TRANSFUSE RED BLOOD Routine 04/15/2020 11:23 CELLS (IN ML) AM CERTIFIED ANESTHESIOLOGIST ASSISTANT AFB CULTURE W/ STAIN Routine 04/15/2020 10:21 Other fracture o f Results for this AM CERTIFIED ANESTHESIOLOGIST ASSISTANT right femur, procedure are i n initial encounter the result s for closed fracture section. ([facility]) DEEP WOUND/TISSUE Routine 04/15/2020 10:21 Other fracture of R esults for this CULTURE W/ STAIN AM CERTIFIED ANESTHESIOLOGIST ASSISTANT right femur, procedure a re in initial encounter the result s for closed fracture section. ([facility]) FUNGUS CULTURE Routine 04/15/2020 10:21 Other fracture of Resu lts for this AM CERTIFIED ANESTHESIOLOGIST ASSISTANT right femur, procedure are i n initial encounter the result s for closed fracture section. ([facility]) ANAEROBIC CULTURE Routine 04/15/2020 10:21 Other fracture of R esults for this AM CERTIFIED ANESTHESIOLOGIST ASSISTANT right femur, procedure are i n initial encounter the result s for closed fracture section. ([facility]) AFB CULTURE W/ STAIN Routine 04/15/2020 9:31 AM Other fracture of Results for this CERTIFIED ANESTHESIOLOGIST ASSISTANT right femur, procedure are i n initial encounter the result s for closed fracture section. ([facility]) DEEP WOUND/TISSUE Routine 04/15/2020 9:31 AM Other fracture of Results for this CULTURE W/ STAIN CERTIFIED ANESTHESIOLOGIST ASSISTANT right femur, procedure a re in initial encounter the result s for closed fracture section. ([facility]) FUNGUS CULTURE Routine 04/15/2020 9:31 AM Other fracture of Re sults for this CERTIFIED ANESTHESIOLOGIST ASSISTANT right femur, procedure are i n initial encounter the result s for closed fracture section. ([facility]) ANAEROBIC CULTURE Routine 04/15/2020 9:31 AM Other fracture of Results for this CERTIFIED ANESTHESIOLOGIST ASSISTANT right femur, procedure are i n initial encounter the result s for closed fracture section. ([facility]) CONFIRMATORY ABORH Routine 04/15/2020 9:28 AM Res ults for this CERTIFIED ANESTHESIOLOGIST ASSISTANT procedure are i n the results section. HC CORTNEY TEST Routine 04/15/2020 9:26 AM Results for this INDIRECT QUAL CERTIFIED ANESTHESIOLOGIST ASSISTANT procedure are in the results section. SURGICAL PATHOLOGY Routine 04/15/2020 9:07 AM Other fracture o f Results for this SPECIMEN CERTIFIED ANESTHESIOLOGIST ASSISTANT right femur, procedure are i n initial encounter the result s for closed fracture section. ([facility]) AFB CULTURE W/ STAIN Routine 04/15/2020 9:02 AM Other fracture of Results for this CERTIFIED ANESTHESIOLOGIST ASSISTANT right femur, procedure are i n initial encounter the result s for closed fracture section. ([facility]) DEEP WOUND/TISSUE Routine 04/15/2020 9:02 AM Other fracture of Results for this CULTURE W/ STAIN CERTIFIED ANESTHESIOLOGIST ASSISTANT right femur, procedure a re in initial encounter the result s for closed fracture section. ([facility]) FUNGUS CULTURE Routine 04/15/2020 9:02 AM Other fracture of Re sults for this CERTIFIED ANESTHESIOLOGIST ASSISTANT right femur, procedure are i n initial encounter the result s for closed fracture section. ([facility]) ANAEROBIC CULTURE Routine 04/15/2020 9:02 AM Other fracture of Results for this CERTIFIED ANESTHESIOLOGIST ASSISTANT right femur, procedure are i n initial encounter the result s for closed fracture section. ([facility]) INSERTION ANTIBIOTIC 04/15/2020 7:13 AM Other fracture of BEADS/SPACERS HIP CERTIFIED ANESTHESIOLOGIST ASSISTANT right femur, initial encounter for closed fracture ([facility]) Special Needs LATERAL ON REGULAR TABLE, WI XON, DEPUY SOLA EVANSPT WILL ARRIVE AT 0600 REVISE TOTAL HIP 04/15/2020 7:13 AM CERTIFIED ANESTHESIOLOGIST ASSISTANT Other fracture of right femur, initial encounter for closed fractur e ([facility]) Special Needs LATERAL ON REGULAR TABLE, WI XON, DEPUY SOLA EVANSPT WILL ARRIVE AT 0600 POCT GLUCOSE (FINGERSTICK) Routine 04/15/2020 6:55 AM CERTIFIED ANESTHESIOLOGIST ASSISTANT Results for this procedure are i n the results section . documented in this encounter Results (ABNORMAL) POCT GLUCOSE(FINGERSTICK)-Interfaced (04/18/2020 11:00 AM CERTIFIED ANESTHESIOLOGIST ASSISTANT)Only the most recent of12 resultswithin the time period is included. [facility] gist Method Time Signature POCT 234 (H) 74 - 106 04/18/2020 [facility] FINGERSTICK mg/dL 11:12 AM CERTIFIED ANESTHESIOLOGIST ASSISTANT DEPARTMENT OF GLUCOSE PATHOLOGY POCT PERFORMED Soft Tile Setter Id: 04/18/2020 [place] [id number] - 11:12 AM CERTIFIED ANESTHESIOLOGIST ASSISTANT DEPARTMENT OF [place], PATHOLOGY [place] Specimen Anatomical Collection Method Collection Time Receive d Time (Source) Location / / Volume Laterality Blood 04/18/2020 11:00 04/18/2020 AM CERTIFIED ANESTHESIOLOGIST ASSISTANT 11:12 AM CERTIFIED ANESTHESIOLOGIST ASSISTANT Kasey Hassan MD POCT ORDERABLES - INTERFACED Performing Organization Address City/State/ZIP Code Phon e Number [facility] DEPARTMENT OF PATHOLOGY [address] [place] [address] [place] (ABNORMAL) Hemoglobin and hematocrit, blood (04/18/2020 5:15 AM CERTIFIED ANESTHESIOLOGIST ASSISTANT) P athologist Signature Hemoglobin 7.9 (L) 12.0 - 04/18/2020 [facility] DEPARTMENT 15.0 g/dL 6:09 AM CERTIFIED ANESTHESIOLOGIST ASSISTANT OF PATHOLOGY Hematocrit 26.3 (L) 36.0 - 04/18/2020 [facility] DEPARTMENT 46.0 % 6:09 AM CERTIFIED ANESTHESIOLOGIST ASSISTANT OF PATHOLOGY Specimen Anatomical Collection Method / Collection Time Recei jackelyn Time (Source) Location / Volume Laterality Blood Lab Venipuncture / 04/18/2020 5:15 2019 5:45 Unknown AM CERTIFIED ANESTHESIOLOGIST ASSISTANT AM CERTIFIED ANESTHESIOLOGIST ASSISTANT Narrative [facility] DEPARTMENT OF PATHOLOGY - 0 6:09 AM CERTIFIED ANESTHESIOLOGIST ASSISTANT If the anticoagulant ratio is incorrect when colleting an EDTA specimen, the hematocrit, mean cell volume (MCV), and mean corpuscular hemoglobin concentration (MCHC) may be inaccurate. ??It is recomm ended to fill the tube to the stated tube volume by vacutainer method. Kerrie Vidal SUPPORT TECHNICIAN LAB BLOOD ORDERABLES Performing Organization Address City/State/ZIP Code Phon e Number [facility] DEPARTMENT OF PATHOLOGY [address] [place] [address] [place] (ABNORMAL) Vancomycin, trough (04/17/2020 11:43 AM CERTIFIED ANESTHESIOLOGIST ASSISTANT) Patholo gist Method Time Signature Vancomycin 9.6 (L) 10.0 - 04/17/2020 [facility] Trough 20.0 12:23 PM CERTIFIED ANESTHESIOLOGIST ASSISTANT DEPARTMENT OF mcg/mL PATHOLOGY Vancomycin Tr 04/16/2020 04/17/2020 [facility] Dose Dt 12:23 PM CERTIFIED ANESTHESIOLOGIST ASSISTANT DEPARTMENT OF PATHOLOGY Vancomycin Tr 6:49 PM 04/17/2020 [facility] Dose Tm 12:23 PM CERTIFIED ANESTHESIOLOGIST ASSISTANT DEPARTMENT OF PATHOLOGY VANC TROUGH 2,000.0 mg 04/17/2020 [facility] DOSAGE 12:23 PM CERTIFIED ANESTHESIOLOGIST ASSISTANT DEPARTMENT OF PATHOLOGY Specimen Anatomical Collection Method / Collection Time Recei jackelyn Time (Source) Location / Volume Laterality Blood Non-lab 04/17/2020 11:43 04/17/2020 Venipuncture / AM CERTIFIED ANESTHESIOLOGIST ASSISTANT 11:48 AM CERTIFIED ANESTHESIOLOGIST ASSISTANT Unknown Narrative [facility] DEPARTMENT OF PATHOLOGY - 0 12:23 PM CERTIFIED ANESTHESIOLOGIST ASSISTANT A higher trough level (15-20 ug/mL) is i ndicated for certain infections (Pneumonia, Bacteremia, Endocarditis, Osteomyelitis, Meningitis, Empiric Bacterial Meningitis, and Hardware Infections). Kasey Dinero PharmD LAB BLOOD ORDERABLES Performing Organization Address City/State/ZIP Code Phon e Number [facility] DEPARTMENT OF PATHOLOGY [address] [place] [address] Street ADULT VASC ACCESS ULTRASOUND (04/17/2020 9:14 AM CERTIFIED ANESTHESIOLOGIST ASSISTANT) Specimen (Source) Anatomical Location Collection Method / Collectio n Time Received Time / Laterality Volume Narrative Radiology, Silent Trailer Steerer - 04/17/2020 9:14 AM CERTIFIED ANESTHESIOLOGIST ASSISTANT Ultrasound images obtained for archiving purposes only. ?? Kasey Hassan MD [facility] SARS-CoV-2 RNA Panel by RT-PCR (04/17/2020 8:37 AM CERTIFIED ANESTHESIOLOGIST ASSISTANT) Analysis Performed At Patho logist Time Signature SARS-CoV-2 Not Not MD DORADO 04/17/2020 [facility] PCR Detected Detected 1999 9:34 PM CERTIFIED ANESTHESIOLOGIST ASSISTANT DEPARTMENT OF INSTRUMENT PATHOLOGY Comment: The detection [...] 04/17/2020 STRUCTURE / Unknown collection / AM CERTIFIED ANESTHESIOLOGIST ASSISTANT 8:48 AM CERTIFIED ANESTHESIOLOGIST ASSISTANT Unknown Narrative [facility] DEPARTMENT OF PATHOLOGY - 0 9:34 PM CERTIFIED ANESTHESIOLOGIST ASSISTANT SARS-CoV-2 is the virus responsible for COVID-19. This test has been authorized by the FDA under EUA for use by authorized laboratories. This test uses RT-PCR to detect the RdRp and N genes of the SARS-CoV-2 virus, and is sensitive to 100 RNA copies/mL in viral transport media. Kerrie Vidal NP MICROBIOLOGY - GENERAL ORDER BABAK Performing Organization Address City/State/ZIP Code Phon e Number [facility] DEPARTMENT OF PATHOLOGY [address] [place] [address] [place] XR Chest 1 View (04/17/2020 8:36 AM CERTIFIED ANESTHESIOLOGIST ASSISTANT) Anatomical Region Laterality Modality Chest Computed Radiography Specimen (Source) Anatomical Collection Method Collection Time Re ceived Time Location / / Volume Laterality 04/17/2020 8:52 AM CERTIFIED ANESTHESIOLOGIST ASSISTANT Impressions 04/17/2020 8:53 AM CERTIFIED ANESTHESIOLOGIST ASSISTANT IMPRESSION: No acute cardiopulmonary process. ATTENDING RADIOLOGIST: Amber Simmons M.D., Ph.D. Narrative 04/17/2020 8:53 AM CERTIFIED ANESTHESIOLOGIST ASSISTANT RADIOLOGIC EXAM: XR CHEST 1 VIEW DATE [...] ATTENDING RADIOLOGIST: Amber Simmons M.D., Ph.D. Kerrie Vidal NP IMG DIAGNOSTIC IMAGING ORDER BABAK (ABNORMAL) Basic metabolic panel (04/17/2020 4:58 AM CERTIFIED ANESTHESIOLOGIST ASSISTANT)Only the most recent of 2 resultswithin the time period is included. Analysis Performed At [facility] Time Signature Sodium 132 (L) 136 - 145 04/17/2020 [facility] mmol/L 7:[address] [facility] DEPARTMENT OF PATHOLOGY Potassium 4.5 3.4 - 4.5 04/17/2020 [facility] mmol/L 7:[address] [facility] DEPARTMENT OF PATHOLOGY Chloride 96 (L) 98 - 107 04/17/2020 [facility] mmol/L 7:[address] [facility] DEPARTMENT OF PATHOLOGY CO2 27 22 - 29 04/17/2020 [facility] mmol/L 7:[address] [facility] DEPARTMENT OF PATHOLOGY Anion Gap 9.0 6.0 - 14.0 04/17/2020 [facility] mmol/L 7:[address] [facility] DEPARTMENT OF PATHOLOGY BUN 23.0 8.0 - 23.0 04/17/2020 [facility] mg/dL 7:[address] [facility] DEPARTMENT OF PATHOLOGY Calcium 7.3 (L) 8.6 - 10.2 04/17/2020 [facility] mg/dL 7:[address] [facility] DEPARTMENT OF PATHOLOGY Glucose 210 (H) 74 - 106 04/17/2020 [facility] mg/dL 7:[address] [facility] DEPARTMENT OF PATHOLOGY Creatinine 0.88 0.51 - 04/17/2020 [facility] Serum/WB 0.95 mg/dL 7:[address] [facility] DEPARTMENT OF PATHOLOGY Comment: Elevated levels of N-acetylcyst eine and W-nlhtbi-k-benzoquinone imine can cause falsely decreased values. eGFR (from >=60 ml/min/1.73m?? 04/17/2020 7:16 AM [facility] DEPARTMENT OF Creatinine) [facility] PATHOLOGY Specimen Anatomical Collection Method / Collection Time Recei jackelyn Time (Source) Location / Volume Laterality Blood Lab Venipuncture / 04/17/2020 4:58 2019 6:31 Unknown AM CERTIFIED ANESTHESIOLOGIST ASSISTANT AM CERTIFIED ANESTHESIOLOGIST ASSISTANT Narrative [facility] DEPARTMENT OF PATHOLOGY - 0 7:[address] [facility] AVERAGE GFR FOR 60-69 YEARS OLD: 85 ml/min/1.73 m?? CHRONIC KIDNEY DISEASE: <60 ml/min/1.73 m?? KIDNEY FAILURE: <15 ml/min/1.73 m?? Calculated using the MDRD formula for ID [place]-traceable methods. Kerrie Vidal NP LAB BLOOD ORDERABLES Performing Organization Address City/State/ZIP Code Phon e Number [facility] DEPARTMENT OF PATHOLOGY [address] [place] [address] [place] (ABNORMAL) CBC (04/17/2020 4:58 AM CERTIFIED ANESTHESIOLOGIST ASSISTANT)Only the most recent of2 resultswithin the time period is included. [facility] gist Method Time Signature White Blood Cell 11.7 (H) 4.0 - 04/17/2020 [facility] Count 10.0 6:58 AM CERTIFIED ANESTHESIOLOGIST ASSISTANT DEPARTMENT OF /[facility] PATHOLOGY Red Blood Cell 2.95 (L) 3.80 - 04/17/2020 [facility] Count 4.80 6:58 AM CERTIFIED ANESTHESIOLOGIST ASSISTANT DEPARTMENT OF /[facility] PATHOLOGY Hemoglobin 8.2 (L) 12.0 - 04/17/2020 [facility] 15.0 g/dL 6:[address] [facility] DEPARTMENT OF PATHOLOGY Hematocrit 26.6 (L) 36.0 - 04/17/2020 [facility] 46.0 % 6:[address] [facility] DEPARTMENT OF PATHOLOGY Mean Corpuscular 90.2 83.0 - 04/17/2020 [facility] Volume 101.0 fl 6:[address] [facility] DEPARTMENT OF PATHOLOGY MCH 27.8 27.0 - 04/17/2020 [facility] 32.0 pg 6:[address] [facility] DEPARTMENT OF PATHOLOGY Mean Corpuscular 30.8 (L) 31.5 - 04/17/2020 [facility] Hemoglobin Conc 34.5 g/dL 6:58 AM CERTIFIED ANESTHESIOLOGIST ASSISTANT DEPARTMENT O F PATHOLOGY Red Cell 15.9 (H) 12.0 - 04/17/2020 [facility] Distribution 15.0 6:[address] [facility] DEPARTMENT OF Width PATHOLOGY RDW - SD 52.3 (H) 36.4 - 04/17/2020 [facility] 46.3 fL 6:[address] [facility] DEPARTMENT OF PATHOLOGY Platelet Count 166 150 - 400 04/17/2020 [facility] 6:58 AM CERTIFIED ANESTHESIOLOGIST ASSISTANT DEPARTMENT OF PATHOLOGY Mean Platelet 11.1 9.4 - 04/17/2020 [facility] Volume 12.3 fl 6:[address] [facility] DEPARTMENT OF PATHOLOGY Specimen Anatomical Collection Method / Collection Time Recei jackelyn Time (Source) Location / Volume Laterality Blood Lab Venipuncture / 04/17/2020 4:58 2019 6:32 Unknown AM CERTIFIED ANESTHESIOLOGIST ASSISTANT AM [facility] Narrative [facility] DEPARTMENT OF PATHOLOGY - 0 6:58 AM CERTIFIED ANESTHESIOLOGIST ASSISTANT If the anticoagulant ratio is incorrect when collecting an EDTA specimen, the hematocrit, mean cell volume (MCV), and mean corpuscular hemoglobin concentration (MCHC) may be inaccurate. ??It is recomm ended to fill the tube to the stated tube volume by vacutainer method. Kerrie Maribell Vidal SUPPORT TECHNICIAN LAB BLOOD ORDERABLES Performing Organization Address City/State/ZIP Code Phon e Number [facility] DEPARTMENT OF PATHOLOGY [address] [facility], [address] [address] Crossmatch & Prepare Leuko RBC's (Units), 2 Units (04/17/2020 1:00 AM CERTIFIED ANESTHESIOLOGIST ASSISTANT) [facility] gist Method Time Signature PRODUCT ID Red Blood Cells BLOOD BANK PRODUCTS CROSSMATCH Compatible BLOOD BANK RESULT PRODUCTS BPAM PROD BLD 6200 BLOOD BANK TYPE PRODUCTS PRODUCT BLD A Pos BLOOD BANK TYPE PRODUCTS PRODUCT UNIT # [id number] BLOOD BANK PRODUCTS Product Transfused BLOOD BANK Dispense PRODUCTS Status BBK UNIT INFO [id number] BLOOD BANK PRODUCTS PRODUCT CODE [id number] BLOOD BANK PRODUCTS BLOOD PROD [id number] BLOOD BANK CODING PRODUCTS PRODUCT ID Red Blood Cells BLOOD BANK PRODUCTS CROSSMATCH Compatible BLOOD BANK RESULT PRODUCTS BPAM PROD BLD 6200 BLOOD BANK TYPE PRODUCTS PRODUCT BLD A Pos BLOOD BANK TYPE PRODUCTS PRODUCT UNIT # [id number] BLOOD BANK PRODUCTS Product Released BLOOD BANK Dispense PRODUCTS Status BBK UNIT INFO [id number] BLOOD BANK PRODUCTS PRODUCT CODE [id number] BLOOD BANK PRODUCTS BLOOD PROD [id number] BLOOD BANK CODING PRODUCTS ISSUE [id number] BLOOD BANK DATE/TIME PRODUCTS Specimen (Source) Anatomical Collection Method Collection Time Re ceived Time Location / / Volume Laterality Blood 04/17/2020 1:00 AM CERTIFIED ANESTHESIOLOGIST ASSISTANT Drew Boudreaux MD BLOOD BANK PRODUCT ORDERABLE S Performing Organization Address City/State/ZIP Code Phon e Number BLOOD BANK PRODUCTS XR Hip WWO Pelvis Right 2 or 3 Views (04/15/2020 6:14 PM CERTIFIED ANESTHESIOLOGIST ASSISTANT) Anatomical Region Laterality Modality Hip, Pelvis Digital Radiography Specimen (Source) Anatomical Collection Method Collection Time Re ceived Time Location / / Volume Laterality 04/15/2020 6:18 PM CERTIFIED ANESTHESIOLOGIST ASSISTANT Impressions 04/15/2020 6:19 PM CERTIFIED ANESTHESIOLOGIST ASSISTANT IMPRESSION: 1. Recent right hip arthroplasty with hilario rgical drain placement overlying skin bing as detailed. 2. Small displaced bone fragment along t he cortex distal prosthesis. No definite fracture lines otherwise are demonstrated. ?? Attending Radiologist: Scott Chen M.D. 04/15/2020 6:18 PM Narrative 04/15/2020 6:19 PM CERTIFIED ANESTHESIOLOGIST ASSISTANT RADIOLOGIC EXAM: XR HIP WWO PELVIS RIGHT [...] M.D. 04/15/2020 6:18 PM Kasey Hassan MD IMG DIAGNOSTIC IMAGING ORDER BABAK XR Femur Right Min 2 Views (04/15/2020 6:14 PM CERTIFIED ANESTHESIOLOGIST ASSISTANT) Anatomical Region Laterality Modality Thigh Digital Radiography Specimen (Source) Anatomical Collection Method Collection Time Re ceived Time Location / / Volume Laterality 04/15/2020 6:16 PM CERTIFIED ANESTHESIOLOGIST ASSISTANT Impressions 04/15/2020 6:18 PM CERTIFIED ANESTHESIOLOGIST ASSISTANT IMPRESSION: No evidence of periprosthetic fracture. Expected postoperative findings. Attending Radiologist: Scott Chen M.D. 04/15/2020 6:16 PM Narrative 04/15/2020 6:18 PM CERTIFIED ANESTHESIOLOGIST ASSISTANT RADIOLOGIC EXAM(S): XR FEMUR RIGHT MIN 2 [...] ORDER BABAK (ABNORMAL) hematocrit (04/15/2020 3:30 PM CERTIFIED ANESTHESIOLOGIST ASSISTANT) athologist Signature Hematocrit 35.7 (L) 36.0 - 04/15/2020 [facility] DEPARTMENT 46.0 % 4:07 PM CERTIFIED ANESTHESIOLOGIST ASSISTANT OF PATHOLOGY Specimen Anatomical Collection Method Collection Time Receive d Time (Source) Location / / Volume Laterality Blood STRUCTURE OF LEFT 04/15/2020 3:30 PM 04/02 3:44 UPPER LIMB / CERTIFIED ANESTHESIOLOGIST ASSISTANT PM CERTIFIED ANESTHESIOLOGIST ASSISTANT Unknown Narrative [facility] DEPARTMENT OF PATHOLOGY - 0 4:07 PM CERTIFIED ANESTHESIOLOGIST ASSISTANT If the anticoagulant ratio is incorrect when colleting an EDTA specimen, the hematocrit, mean cell volume (MCV), and mean corpuscular hemoglobin concentration (MCHC) may be inaccurate. ??It is recomm ended to fill the tube to the stated tube volume by vacutainer method. Kasey Hassan MD LAB BLOOD ORDERABLES Performing Organization Address City/State/ZIP Code Phon e Number [facility] DEPARTMENT OF PATHOLOGY [address] [place] [address] [place] ANES Performed [facility] Regional/Invasive (04/15/2020 2:28 PM CERTIFIED ANESTHESIOLOGIST ASSISTANT) Specimen (Source) Anatomical Location Collection Method / Collectio n Time Received Time / Laterality Volume Narrative Radiology, Silent Trailer Steerer - 04/15/2020 2:28 PM CERTIFIED ANESTHESIOLOGIST ASSISTANT This procedure was performed during a surgical case. Please see the anesthetic note for the f ormal interpretation. Misbah Murphy MD [facility] [facility] XR Pelvis 1 or 2 Views (04/15/2020 1:22 PM CERTIFIED ANESTHESIOLOGIST ASSISTANT) Anatomical Region Laterality Modality Pelvis Computed Radiography Specimen (Source) Anatomical Collection Method Collection Time Re ceived Time Location / / Volume Laterality 04/15/2020 1:33 PM CERTIFIED ANESTHESIOLOGIST ASSISTANT Impressions 04/15/2020 1:35 PM CERTIFIED ANESTHESIOLOGIST ASSISTANT IMPRESSION: Interval revision of right hip arthropla sty as above. ?? RESIDENT RADIOLOGIST: ATTENDING RADIOLOGIST: Malcom Nolen Narrative 04/15/2020 1:35 PM CERTIFIED ANESTHESIOLOGIST ASSISTANT RADIOLOGIC EXAM: XR PELVIS 1 OR 2 VIEWS DATE AND TIME OF EXAMINATION: 04/15/2020 1:10 PM CLINICAL HISTORY: REVISE TOTAL HIP TO NC OXIMAL FEMUR REPLACEMENT/TOTAL ONCOLOGIC HIP REPLACEMENT ??Pelvic [...] lateral soft tissue incision visible. Procedure Note Elina Mcgee MD - 04/15/2020Formatti ng of this note might be different from the original. RADIOLOGIC EXAM: XR PELVIS 1 OR 2 VIEWS DATE AND TIME OF EXAMINATION: 04/15/2020 1:10 PM CLINICAL HISTORY: REVISE TOTAL HIP TO NC OXIMAL FEMUR REPLACEMENT/TOTAL ONCOLOGIC HIP REPLACEMENT Pelvic [...] ATTENDING RADIOLOGIST: Malcom Nolen Kasey Hassan MD [facility] DIAGNOSTIC IMAGING ORDER BABAK (ABNORMAL) POCT TOTAL HGB W/HCT(CALC)VENOUS (04/15/2020 1:15 PM CERTIFIED ANESTHESIOLOGIST ASSISTANT) [facility] Method Time Signature POC Total 11.7 (L) 12.0 - 04/15/2020 [facility] Hemoglobin 16.0 g/dl 1:16 PM CERTIFIED ANESTHESIOLOGIST ASSISTANT DEPARTMENT OF Venous PATHOLOGY POCT 35.0 (L) 39.0 - 04/15/2020 [facility] HEMATOCRIT 45.0 % 1:16 PM CERTIFIED ANESTHESIOLOGIST ASSISTANT DEPARTMENT OF CALC PATHOLOGY POCT PERFORMED Soft Tile Setter Id: 04/15/2020 [place] [id number] - 1:16 PM CERTIFIED ANESTHESIOLOGIST ASSISTANT DEPARTMENT OF TORRES, PATHOLOGY LETICIA Specimen Anatomical Collection Method Collection Time Receive d Time (Source) Location / / Volume Laterality 04/15/2020 1:15 PM 0 1:16 CERTIFIED ANESTHESIOLOGIST ASSISTANT PM CERTIFIED ANESTHESIOLOGIST ASSISTANT Kasey Hassan MD POCT ORDERABLES - INTERFACED Performing Organization Address City/State/ZIP Code Phon e Number [facility] DEPARTMENT OF PATHOLOGY [address] [place] [address], [place] [address] [address] Transfuse RBC in mL (Nursing) (04/15/2020 11:23 AM CERTIFIED ANESTHESIOLOGIST ASSISTANT) Misbah Murphy MD NURSING TREATMENT ORDERABLES - BLOOD ADMIN AFB culture w/ Stain (04/15/2020 10:21 AM CERTIFIED ANESTHESIOLOGIST ASSISTANT)Only the most recent of3 results within the time period is included. [facility] Method Time Signature Culture, AFB No Acid Fast 05/29/2020 [facility] bacilli 12:25 PM DEPARTMENT OF isolated CERTIFIED ANESTHESIOLOGIST ASSISTANT PATHOLOGY AFB Smear No acid fast 05/29/2020 [facility] bacilli seen on 12:25 PM [facility] CERTIFIED ANESTHESIOLOGIST ASSISTANT PATHOLOGY ine direct smear fluorescent stain. Comment: Interpret No acid fast bacilli seen on smear with extreme caution. A negative result does not rule out the pr esence of an infectious agent. Culture pending final result. Specimen Anatomical Collection Method Collection Time Receive d Time (Source) Location / / Volume Laterality Tissue BONE STRUCTURE OF 04/15/2020 10:21 2019 1:01 FEMUR / Unknown AM CERTIFIED ANESTHESIOLOGIST ASSISTANT PM CERTIFIED ANESTHESIOLOGIST ASSISTANT Comment: Right femoral canal Kasey Hassan MD MICROBIOLOGY - GENERAL ORDER BABAK Performing Organization Address City/State/ZIP Code Phon e Number [facility] DEPARTMENT OF PATHOLOGY [address] [place] [address] Street Deep Wound/Tissue Culture with stain (04/15/2020 10:21 AM CERTIFIED ANESTHESIOLOGIST ASSISTANT)Only the most recent of3 resultswithin the time period is included. Component Value Ref Test Method Analysis Performed At Patho logist Range Time Signature Culture, No Growth MINIMUM 04/18/2020 [facility] Deep Wound after 72 INHIBITORY 8:52 AM CERTIFIED ANESTHESIOLOGIST ASSISTANT DEPARTMENT OF hours [facility] PATHOLOGY Gram Stain Rare WBC per 04/18/2020 [facility] Result low power 8:52 AM CERTIFIED ANESTHESIOLOGIST ASSISTANT DEPARTMENT OF field PATHOLOGY Gram Stain No organisms 04/18/2020 [facility] Result seen 8:52 AM CERTIFIED ANESTHESIOLOGIST ASSISTANT DEPARTMENT OF PATHOLOGY Specimen Anatomical Collection Method Collection Time Receive d Time (Source) Location / / Volume Laterality Tissue BONE STRUCTURE OF 04/15/2020 10:21 2019 1:01 FEMUR / Unknown AM CERTIFIED ANESTHESIOLOGIST ASSISTANT PM CERTIFIED ANESTHESIOLOGIST ASSISTANT Comment: Right femoral canal Kasey Hassan MD MICROBIOLOGY - GENERAL ORDER BABAK Performing Organization Address City/State/ZIP Code Phon e Number [facility] DEPARTMENT OF PATHOLOGY [address] [place] [address] Street Fungus culture (04/15/2020 10:21 AM CERTIFIED ANESTHESIOLOGIST ASSISTANT)Only the most recent of3 resultswithin the time period is included. [facility] gist Method Time Signature Culture, No Growth 05/16/2020 [facility] Fungus 9:01 AM CERTIFIED ANESTHESIOLOGIST ASSISTANT DEPARTMENT OF PATHOLOGY Specimen Anatomical Collection Method Collection Time Receive d Time (Source) Location / / Volume Laterality Tissue BONE STRUCTURE OF 04/15/2020 10:21 2019 1:01 FEMUR / Unknown AM CERTIFIED ANESTHESIOLOGIST ASSISTANT PM CERTIFIED ANESTHESIOLOGIST ASSISTANT Comment: Right femoral canal Kasey Hassan MD MICROBIOLOGY - GENERAL ORDER BABAK Performing Organization Address City/[facility]/ZIP Code Phon e Number [facility] DEPARTMENT OF PATHOLOGY [address] [place] [address] Street Anaerobic culture (04/15/2020 10:21 AM CERTIFIED ANESTHESIOLOGIST ASSISTANT)Only the most recent of3 results within the time period is included. [facility] gist Method Time Signature Culture, No anaerobes 04/17/2020 [facility] Anaerobe isolated 11:10 AM CERTIFIED ANESTHESIOLOGIST ASSISTANT DEPARTMENT OF PATHOLOGY Specimen Anatomical Collection Method Collection Time Receive d Time (Source) Location / / Volume Laterality Tissue BONE STRUCTURE OF 04/15/2020 10:21 2019 1:01 FEMUR / Unknown AM CERTIFIED ANESTHESIOLOGIST ASSISTANT PM CERTIFIED ANESTHESIOLOGIST ASSISTANT Comment: Right femoral canal Kasey Hassan MD MICROBIOLOGY - GENERAL ORDER BABAK Performing Organization Address City/State/ZIP Code Phon e Number [facility] DEPARTMENT OF PATHOLOGY [address] [place] [address] Street CONFIRMATORY ABORH (04/15/2020 9:28 AM CERTIFIED ANESTHESIOLOGIST ASSISTANT) [facility] gist Method Time [facility] ABO/RH TYPE A Positive 04/15/2020 [facility] ([place]) 10:41 AM CERTIFIED ANESTHESIOLOGIST ASSISTANT BLOOD BANK LAB Specimen Anatomical Collection Method / Collection Time Recei jackelyn Time (Source) Location / Volume Laterality Blood Non-lab 04/15/2020 9:28 04/15/2020 9 :29 Venipuncture / AM CERTIFIED ANESTHESIOLOGIST ASSISTANT AM CERTIFIED ANESTHESIOLOGIST ASSISTANT Unknown Kerrie Vidal NP BLOOD BANK TEST ORDERABLES Performing Organization Address City/[facility]/ZIP Code Phon e Number [facility] BLOOD BANK LAB [address] [facility], [place] [address] Type and screen (04/15/2020 9:26 AM CERTIFIED ANESTHESIOLOGIST ASSISTANT) [facility] Method Time [facility] ABO/RH TYPE A Positive 04/15/2020 [facility] ([place]) 10:32 AM CERTIFIED ANESTHESIOLOGIST ASSISTANT BLOOD BANK LAB Antibody Negative 04/15/2020 [facility] Screen 10:32 AM CERTIFIED ANESTHESIOLOGIST ASSISTANT BLOOD BANK LAB Specimen Anatomical Collection Method / Collection Time Recei jackelyn Time (Source) Location / Volume Laterality Blood Non-lab 04/15/2020 9:26 04/15/2020 9 :26 Venipuncture / AM CERTIFIED ANESTHESIOLOGIST ASSISTANT AM CERTIFIED ANESTHESIOLOGIST ASSISTANT Unknown Drew Boudreaux MD BLOOD BANK TEST ORDERABLES Performing Organization Address City/[facility]/ZIP Code Phon e Number [facility] BLOOD BANK LAB [address] [facility], [place] [address] Surgical Pathology Specimen (04/15/2020 9:07 AM CERTIFIED ANESTHESIOLOGIST ASSISTANT) Component Value Ref Test Analysis Performed At [facility] Range Method Time [facility] Case Report Surgical Pathology ?Case: [id number] ? 04/17/2020 [facility] Authorizing Provider: ??Татьяна Hassan MD ?Collected: ? 04/15/2020 0907 ? 9:10 AM DEPA RTMENT Ordering Location: ? [facility] OR ?Received: ?04/15/2020 0957 ? CERTIFIED ANESTHESIOLOGIST ASSISTANT OF PATHOLOGY Pathologist: ? Sue Musa MD ? Intraop: ? Sue Musa MD ? Specimens: ?? A) - Hip, Righ t, Right Hip ? B) - Hip, Right, Right Hip #2 ? C) - Femu r, Right, right femur ? Final Diagnosis A. HIP, RIGHT: 04/17/2020 [facility] Electronically - Synovium and dense fibrous tissue, negative for acut e inflammation. 9:10 AM DEPARTMENT signed by CERTIFIED ANESTHESIOLOGIST ASSISTANT OF PATHOLOGY Sue Newman B. HIP, RIGHT, [...] gross only. Intraoperative A. Hip, Right. 04/17/2020 [facility] Consultation Specimen A: 9:10 AM DEPARTMENT Right hip: Negative for acute inflammation. CERTIFIED ANESTHESIOLOGIST ASSISTANT OF PATHOLOGY Time Received 0957 Time Reported 1019 1 Jose Cruz Read 04/15/[address] Musa B. Hip, Right. Specimen B: Right hip #2: Negative for acute inflammation. Time Received 0957 Time Reported 1019 1 Jose Cruz Read 04/15/[address] Musa Gross A. Hip, Right. 04/17/2020 [facility] Description Specimen A is received fresh for intraoperative consult labeled with the patient's name, medical record number, right hip and consists of an aggregate of tayolr-pink, focally necrotic tissue (6.0 x 3.0 x 9:10 AM DEPARTMENT 0.6 cm). Cheese Supervisor sections are submitted for frozen sectioning. CERTIFIED ANESTHESIOLOGIST ASSISTANT OF PATHOLOGY Section code: A1: Frozen section remnant (CM) B. Hip, Right. Specimen B is received fresh for intraoperative consult labeled with the patient's name, medical record number, right hip #2 and consists of an aggregate of taylor-pink, focally necrotic tissue (2.8 x 2. 8 x 0.7 cm). Cheese Supervisor sections are submitted for froze n sectioning. [...] longitudinally splitting the femur into multiple fragments. Cheese Supervisor sections of each fragment are submitted in C1-C4, post decalcification. (AI) Additional 04/17/2020 [facility] Electron ically Information Unless specified otherwise a ho, the quality of the H&E and any other special stains performed at [facility] Pathology Laboratory (AFB, PAS, immunostains, etc) is sati 9:10 AM DEPARTMENT signed by brad, and any internal o r external positive and negative controls react appropriately. CERTIFIED ANESTHESIOLOGIST ASSISTANT OF PATHOLOGY Sue Musa MD on Any immunohistochemical, imm unofluorescence, or in-situ hybridization tests included in this report that were performed at [facility] were developed and their performance c 04/17/2020 at [facility] determined by [facility]. They have not been cleared or approved by the U.S. Food and Drug Administration (FDA). The FDA has determined that such clearance o 9:10 AM r approval is not necessary. These tests are used for clinical purposes. They should not be regarded as investigational or for research. The [facility] is certified under t he Clinical Laboratory Impro vement Act of 1988 (CLIA) as qualified to perform high complexity clinical laboratory testing. Specimen Anatomical Collection Method Collection Time Receive d Time (Source) Location / / Volume Laterality Tissue RIGHT HIP REGION 04/15/2020 9:07 AM 04/15 9:57 STRUCTURE / CERTIFIED ANESTHESIOLOGIST ASSISTANT AM CERTIFIED ANESTHESIOLOGIST ASSISTANT Unknown Comment: looking for acute infection, per Dr. Hassan. Please call OR 6 with results: #[id number] Tissue specimen RIGHT HIP REGION 04/15/2020 9:11 AM 9:57 AM (specimen) STRUCTURE / Unknown CERTIFIED ANESTHESIOLOGIST ASSISTANT CERTIFIED ANESTHESIOLOGIST ASSISTANT Comment: Right Hip #2 looking for acute infection, per Dr. Hassan. Please call OR 6 with results: #[id number] Tissue specimen STRUCTURE OF RIGHT 04/15/2020 10:00 AM 04/15/2020 12:49 PM (specimen) FEMUR / Unknown CERTIFIED ANESTHESIOLOGIST ASSISTANT CERTIFIED ANESTHESIOLOGIST ASSISTANT Comment: Right femur Kasey Hassan MD PATHOLOGY/CYTOLOGY ORDERABLE S Performing Organization Address City/State/ZIP Code Phon e Number [facility] DEPARTMENT OF PATHOLOGY [address] [facility], [address] [place] documented in this encounter Visit Diagnoses Diagnosis Other fracture of right femur, initial e ncounter for closed fracture (HCC) Failure of right total hip arthroplasty, initial encounter (HCC) Other fracture of right femur, initial e ncounter for closed fracture (HCC) documented in this encounter Admitting Diagnoses Diagnosis Other fracture of right femur, initial e ncounter for closed fracture (HCC) Periprosthetic fracture of proximal end of femur documented in this encounter Administered Medications Inactive Administered Medications - up to 3 most recent administrations Medication Order MAR Action Action Date Dose Rate Site acetaminophen (TYLENOL) tablet Given 04/18/2020 9:40 AM CERTIFIED ANESTHESIOLOGIST ASSISTANT 1,00 0 mg 1,000 mg 1,000 mg Every 6 hours, Oral, First dose on Wed04/15/20 at 1945, Post-op Given 04/17/2020 8:55 PM CERTIFIED ANESTHESIOLOGIST ASSISTANT 1,000 mg Given 04/17/2020 12:40 PM CERTIFIED ANESTHESIOLOGIST ASSISTANT 1,000 mg ascorbic acid (VITAMIN C) tablet 1,000 m g Given 04/18/2020 9:41 AM CERTIFIED ANESTHESIOLOGIST ASSISTANT 1,000 mg 1,000 mg Daily, Oral, First dose on Wed04/15/20 at 1945 Given 04/17/2020 8:28 AM CERTIFIED ANESTHESIOLOGIST ASSISTANT 1,000 mg Given 04/16/2020 9:00 AM CERTIFIED ANESTHESIOLOGIST ASSISTANT 1,000 mg bacitracin ointment Given 04/16/2020 10:40 PM CERTIFIED ANESTHESIOLOGIST ASSISTANT Topical, PRN, Wound Care, skin tear, Starting on Wed04/16/20 at 2117, LUE ceFAZolin (ANCEF) injection Given 04/15/2020 11:35 AM CERTIFIED ANESTHESIOLOGIST ASSISTANT 2 g Port PRN, Starting on Wed04/15/20 at 1135, Until Wed04/15/20 at 1812, Intra-op dicyclomine (BENTYL) capsule 10 mg Given 04/17/2020 8:55 PM CERTIFIED ANESTHESIOLOGIST ASSISTANT 10 mg 10 mg 4 times daily before meals & nightly, Oral, First dose on Wed04/15/20 at 2100 Given 04/17/2020 8:28 AM CERTIFIED ANESTHESIOLOGIST ASSISTANT 10 mg Given 04/16/2020 9:08 PM CERTIFIED ANESTHESIOLOGIST ASSISTANT 10 mg docusate sodium (COLACE) capsule 100 mg Given 04/18/2020 9:40 AM CERTIFIED ANESTHESIOLOGIST ASSISTANT 100 mg 100 mg BID-2 times daily, Oral, First dose on Wed04/15/20 at 2100, Post-op Given 04/17/2020 8:55 PM CERTIFIED ANESTHESIOLOGIST ASSISTANT 100 mg Given 04/17/2020 8:28 AM CERTIFIED ANESTHESIOLOGIST ASSISTANT 100 mg enoxaparin (LOVENOX) injection Given 04/18/2020 9:40 AM CERTIFIED ANESTHESIOLOGIST ASSISTANT 40 m g Abdominal Tissue 40 mg 40 mg Daily, Subcutaneous, First dose on Wed04/16/20 at 0900, Post-op Given 04/17/2020 8:28 AM CERTIFIED ANESTHESIOLOGIST ASSISTANT 40 mg Abdom inal Tissue Given 04/16/2020 8:58 AM CERTIFIED ANESTHESIOLOGIST ASSISTANT 40 mg Abdom inal Tissue gabapentin (NEURONTIN) capsule 100 mg Given 04/18/2020 9:41 AM CERTIFIED ANESTHESIOLOGIST ASSISTANT 100 mg 100 mg 3 times daily, Oral, First dose on Wed04/17/20 at 1400 Given 04/17/2020 8:55 PM CERTIFIED ANESTHESIOLOGIST ASSISTANT 100 mg Given 04/17/2020 12:40 PM CERTIFIED ANESTHESIOLOGIST ASSISTANT 100 mg insulin regular (HUMULIN Given 04/17/2020 5:08 PM CERTIFIED ANESTHESIOLOGIST ASSISTANT 1 Units Abdominal Tissue R,NOVOLIN R) injection 0-5 Units 0-5 Units 3 times daily before meals, Subcutaneous, First dose on Wed04/15/20 at 1945 Given 04/17/2020 11:28 AM CERTIFIED ANESTHESIOLOGIST ASSISTANT 1 Units Abdo josé miguel Tissue Given 04/17/2020 8:28 AM CERTIFIED ANESTHESIOLOGIST ASSISTANT 1 Units Abdom inal Tissue mirtazapine (REMERON) tablet 15 mg Given 04/17/2020 8:55 PM CERTIFIED ANESTHESIOLOGIST ASSISTANT 15 mg 15 mg Nightly, Oral, First dose on Wed04/15/20 at 2100 Given 04/16/2020 9:08 PM CERTIFIED ANESTHESIOLOGIST ASSISTANT 15 mg Given 04/15/2020 8:19 PM CERTIFIED ANESTHESIOLOGIST ASSISTANT 15 mg Morphine Sulfate injection 2 mg Given 04/16/2020 10:40 PM CERTIFIED ANESTHESIOLOGIST ASSISTANT 2 mg 2 mg Every 2 hours PRN, Intravenous, Severe Pain, breakthrough pain, Starting on Wed04/15/20 at 1918, Post-op Given 04/16/2020 5:38 PM CERTIFIED ANESTHESIOLOGIST ASSISTANT 2 mg nebivolol (BYSTOLIC) tablet 5 mg Given 04/17/2020 8:29 AM CERTIFIED ANESTHESIOLOGIST ASSISTANT 5 mg 5 mg Daily, Oral, First dose on Wed04/16/20 at 0900 Given 04/16/2020 9:01 AM CERTIFIED ANESTHESIOLOGIST ASSISTANT 5 mg oxyCODONE (ROXICODONE) immediate release Given 04/18/2020 1:25 P M CERTIFIED ANESTHESIOLOGIST ASSISTANT 10 mg tablet 5-10 mg 5-10 mg Every 4 hours PRN, Oral, Moderate Pain, Breakthrough Pain, Starting on Wed04/15/20 at 1918, Post-op Given 04/18/2020 9:43 AM CERTIFIED ANESTHESIOLOGIST ASSISTANT 10 mg Given 04/17/2020 8:55 PM CERTIFIED ANESTHESIOLOGIST ASSISTANT 10 mg piperacillin-tazobactam (ZOSYN) New Bag 04/18/2020 2:36 AM CERTIFIED ANESTHESIOLOGIST ASSISTANT 3.3 75 g 25 mL/hr 3.375 g in sodium chloride 0.9 % 100 mL IVPB (EXTENDED INFUSION) 3.375 g, Intravenous, Administer over 4 Hours, at 25 mL/hr, Every 8 hours, First dose on Wed04/15/20 at 1945, Until Discontinued, Indications: Broad-spectrum coverage New 04/17/2020 9:02 PM CERTIFIED ANESTHESIOLOGIST ASSISTANT 3.375 g 25 mL/hr New Bag 04/17/2020 11:28 AM CERTIFIED ANESTHESIOLOGIST ASSISTANT 3.375 g 25 mL/hr RisaQuad CAPS 1 capsule Given 04/18/2020 9:40 AM CERTIFIED ANESTHESIOLOGIST ASSISTANT 1 capsule 1 capsule Daily, Oral, First dose on Wed04/17/20 at 1100 Given 04/17/2020 11:28 AM CERTIFIED ANESTHESIOLOGIST ASSISTANT 1 capsule rOPINIRole (REQUIP) tablet 2 mg Given 04/17/2020 8:55 PM CERTIFIED ANESTHESIOLOGIST ASSISTANT 2 mg 2 mg Nightly, Oral, First dose on Wed04/15/20 at 2100 Given 04/16/2020 9:08 PM CERTIFIED ANESTHESIOLOGIST ASSISTANT 2 mg Given 04/15/2020 8:19 PM CERTIFIED ANESTHESIOLOGIST ASSISTANT 2 mg rOPINIRole (REQUIP) tablet 2 mg Given 04/18/2020 10:16 AM CERTIFIED ANESTHESIOLOGIST ASSISTANT 2 mg 2 mg Daily PRN, Oral, Other, restless legs, Starting on Wed04/16/20 at 0928 Given 04/17/2020 9:28 AM CERTIFIED ANESTHESIOLOGIST ASSISTANT 2 mg temazepam (RESTORIL) capsule 30 mg Given 04/17/2020 9:46 PM CERTIFIED ANESTHESIOLOGIST ASSISTANT 30 mg 30 mg Nightly PRN, Oral, Sleep, Starting on Wed04/16/20 at 2136 Given 04/16/2020 10:27 PM CERTIFIED ANESTHESIOLOGIST ASSISTANT 30 mg tobramycin (NEBCIN) injection New 04/15/2020 11:37 AM CERTIFIED ANESTHESIOLOGIST ASSISTANT 2.4 g Continuous PRN, Starting on Wed04/15/20 at 1137, Until Wed04/15/20 at 1918, Intra-op Vancomycin HCl 2 g in sodium chloride New 04/18/2020 6:37 AM CERTIFIED ANESTHESIOLOGIST ASSISTANT 2 g 125 mL/hr 0.9 % 250 mL IVPB 2 g (rounded from 2.1225 g = 15 mg/kg ? 141.5 kg), Intravenous, Administer over 120 Minutes, at 125 mL/hr, Every 18 hours, First dose (after last modification) on 12/15/20 at 1800, Until Discontinued, Indications: Perioperative Infection Pharmacoprophylaxis, Please check the refrigerator before requesting a redispense. New Bag 04/17/2020 12:41 PM CERTIFIED ANESTHESIOLOGIST ASSISTANT 2 g 125 mL/hr New Bag 04/16/2020 6:49 PM CERTIFIED ANESTHESIOLOGIST ASSISTANT 2 g 125 mL/hr venlafaxine (EFFEXOR-XR) 24 hr capsule 1 50 mg Given 04/18/2020 9:40 AM CERTIFIED ANESTHESIOLOGIST ASSISTANT 150 mg 150 mg Daily, Oral, First dose on Wed04/15/20 at 1945 Given 04/17/2020 8:28 AM CERTIFIED ANESTHESIOLOGIST ASSISTANT 150 mg Given 04/16/2020 8:59 AM CERTIFIED ANESTHESIOLOGIST ASSISTANT 150 mg documented in this encounter Active and Recently Administered Medications Times are shown in CERTIFIED ANESTHESIOLOGIST ASSISTANT. Scheduled Medication Order 04/16/2020 04/17/2020 04/18/2020 acetaminophen [...] Sachi Jones RN)[phone] (Canceled Entry - Provider: Sachi Jones RN) 0145 (Not Given - Provider: [...] mg 0859 (Given - Provi josie: Magnolia Arnold, LEILA)1258 (Given - Provider: Magnolia Arnold, LEILA)1652 (Given - Provider: Magnolia Arnold RN)2108 (Given - Provider: Daniela Webber RN) 0828 (Given - Provider: Sachi Jones, LEILA)1129 (Not Given - Provider: Sachi Jones RN [...] 100 mg 0859 (Given - Provider: Magnolia Arnold, LEILA)2107 (Given - Provider: Daniela Webber, LEILA) 0828 (Given - Provider: Sachi Jones RN)2054 (Given - Provider: Daniela Webber RN) 0940 (Given - Provider: Sachi Jones RN) 100 mg BID-2 times daily, Oral, First dose on Wed04/15/20 at 21 00, Post-op enoxaparin (LOVENOX) injection 40 mg 0858 (Given - Pro vider: Magnolia Arnold RN) 0828 (Given - Provider: Sachi Jones RN) 0940 (Given - Provider: Sachi Jones RN) 40 mg Daily, Subcutaneous, First dose on Wed04/16/20 at 0900, P ost-op gabapentin (NEURONTIN) capsule 100 mg 12 40 (Given - Provider: Sachi Jones RN)1340 (Canceled Entry - Provider: Sachi Jones, LEILA)2054 (Given - Provider: Daniela Webber RN) 0941 (Given - Provider: Sachi Jones, LEILA) 100 mg 3 times daily, Oral, First dose on Wed04/17/20 at 1400 insulin regular (HUMULIN R,NOVOLIN R) injection 0-5 Un its 0912 (Given - Provider: Magnolia Arnold, LEILA)1259 (Given - Provider: Magnolia Arnold, LEILA)1829 (Given - Provider: Magnolia Arnold, LEILA) 0828 (Given - Provider: Sachi Jones RN - Comment: [phone] (Given - Provider: Sachi Jones, LEILA)1708 (Given - Provider: Sachi Jones RN) 0502 (Not Given - Provider: Daniela Webber RN - Reason: Order parameters not met - Comment: [phone] (Canceled Entry - Provider: Daniela Webber RN)1130 (Due) 0-5 Units 3 times daily before meals, Hilario bcutaneous, First dose on Wed04/15/20 at 1945 mirtazapine (REMERON) tablet 15 mg 2108 (Given - Provi josie: Daniela Webber RN) 2055 (Given - Provider: Daniela Webber RN) 15 mg Nightly, Oral, First dose on Wed04/15/20 at 2100 nebivolol (BYSTOLIC) tablet 5 mg 0901 (Given - Provider: Sanchez Arnold RN) 0829 (Given - Provider: Sachi Jones, LEILA) 0941 (Not Given - Provider: Sachi Jones [...] Arnold, LEILA)1857 (New Bag - Provider: Magnolia Arnold, LEILA) 0333 (New Bag - Provider: Daniela Webber, LEILA)1128 (New Bag - Provider: Sachi Jones RN)210 (New Bag - Provider: Daniela Webber RN) 0236 (New Bag - Provider: Daniela Webber, LEILA)0345 (Canceled Entry - Provider: Daniela Webber RN)1303 (Not Given - Provider: Sachi Jones RN - Reason: Loss of IV access) 3.375 g, Intravenous, Administer over 4 Hours, at 25 mL/hr, Every 8 hours, First dose on Wed04/15/20 at 1945, Until Discontinued, Indications: Broad-spectrum coverage RisaQuad CAPS 1 capsule 112 (Given - Provider: Sachi Jones RN) 0940 (Given - Provider: Sachi Jones RN) 1 capsule Daily, Oral, First dose on Wed04/17/20 at 1100 rOPINIRole (REQUIP) tablet 2 mg 2107 (Given - Provider: Suzie Webber RN) 2054 (Given - Provider: Daniela Webber RN) 2 mg Nightly, Oral, First dose on Wed04/15/20 at 2100 tuberculin injection 5 Units (COMPLETED) 0920 (Given - Provider: Pop King RN) 5 [...] 0828 (Given - Provider: Sachi Jones RN) 0940 [...] mg 1738 (Given - Provider : Magnolia Arnold RN)2240 (Given - Provider: Daniela Webber, LEILA) 2 mg Every 2 hours PRN, Intravenous, Sev ere Pain, breakthrough pain, Starting Wed04/15/20 at 1918, Post-op oxyCODONE (ROXICODONE) immediate release tablet 5-10 m g 0035 (Given - Provider: Daniela Webber, LEILA)1442 (Given - Provider: Magnolia Arnold RN)2108 (Given - Provider: Daniela Webber RN) 0611 (Given - Provider: Daniela Webber RN)1240 (Given - Provider: Sachi Jones RN)1706 (Given - Provider: Sachi Jones RN)2055 (Given - Provider: Daniela Webber RN) 0943 (Given - Provider: Sachi Jones RN)1325 (Given - Provider: Sachi Jones RN) 5-10 mg Every 4 hours PRN, Oral, [...] 2136 documented in this encounter Care Teams Balance Truer Relationship Specialty Start Date End Date Anabelle Yost MD PCP - General Family Medicine 04/15/[address] [place] [address] [place] [id number] documented as of this encounter
--- OUTSIDE RECORDS SUMMARY | 2022-02-01 20:30 | XMS_ITS | Encounter Summary ---
:1955 Author Organization [facility] Address [address] [facility] [place], [address] Phone Care Team Providers Name Role Phone None, No Pcp Primary Care Provider Unavailable Encounter Details Date Type Department Care Team Description 04/08/2020 Orders Only [facility] - Adult Juani Nguyen hip pain Orthopaedics D, BUSPERSON (Primary Dx) [address] [place], [address] Social History Tobacco Use Types Packs/Day Years [...] at Date Recorded Female 04/08/2020 10:19 AM [employer] documented as of this encounter Plan of Treatment Upcoming Encounters Date Type Specialty Care Team Description 03/11/2022 Office Visit Orthopaedics Kasey Hassan MD [address] [place], [address] (Wo rk) documented as of this encounter Results XR Hip WWO Pelvis Right 2 or 3 Views (04/10/2020 7:43 AM [employer]) Anatomical Region Laterality Modality Hip, Pelvis Digital Radiography Specimen (Source) Anatomical Collection Method Collection Time Re ceived Time Location / / Volume Laterality 04/10/2020 9:13 AM [employer] Impressions 04/10/2020 9:15 AM [employer] IMPRESSION: Unchanged right hip total arthroplasty w ith periprosthetic fracture fragments. ?? RESIDENT RADIOLOGIST: ATTENDING RADIOLOGIST: Malcom Munroe Narrative 04/10/2020 9:15 AM [employer] RADIOLOGIC EXAM: XR HIP WWO PELVIS RIGHT [...] encounter Visit Diagnoses Diagnosis Right hip pain - Primary Pain in joint, pelvic region and thigh Right hip pain Pain in joint, pelvic region and thigh documented in this encounter Care Teams Water Safety Teacher Relationship Specialty Start Date End Date None, No Pcp PCP - General Family Medicine 03/13/20 04/14/20 [address] [place] [address] documented as of this encounter
--- OUTSIDE RECORDS SUMMARY | 2022-02-01 20:30 | XMS_ITS | Encounter Summary ---
:1955 Author Organization [facility] Address [address] [facility] [place] [address] Phone Care Team Providers Name Role Phone None, No Pcp Primary Care Provider Unavailable Reason for Visit Reason Comments Initial Visit (New Patient) XR RIGHT HIP...DISCUSS GUADALUPE SANDRA Encounter Details Date Type Department Care Team Description 04/10/2020 Office Visit [facility] - Adult Kasey Hassan Close d disp fracture of lesser trochanter of left femur with nonunion (Primary Dx); Orthopaedics Other fracture of right femur, initial e ncounter for closed fracture (HCC); [address] [facility] Failure of right total hip arthroplasty, initial encounter ([facility]) [place] [address] [place] [address] [phone] Social History Tobacco Use Types Packs/Day Years [...] at Date Recorded Female 04/08/2020 10:19 AM 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 documented as of this encounter Last Filed Vital Signs Vital Sign Reading Time Taken Comments Blood Pressure 136/67 04/10/2020 7:49 AM 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 Pulse 89 04/10/2020 7:49 AM 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 Temperature 36.8 ??C (98.3 ??F) 04/10/2020 7:49 AM 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 Respiratory Rate 20 04/10/2020 7:49 AM 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 Oxygen Saturation 97% 04/10/2020 7:49 AM 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 Inhaled Oxygen - - Concentration Weight 141.5 kg (312 lb) 04/10/2020 7:49 per pt; pt in AM 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 wheelchair Height 175.3 cm (5' 9) 04/10/2020 7:49 AM 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 Body Mass Index 46.07 04/10/2020 7:49 AM 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 documented in this encounter Progress Notes Juani Nguyen LPN - 04/10/2020 7:30 AM CST ORTHOPAEDIC ONCOLOGY NURSING ASSESSMENT Sarah is in clinic today because of her right hip and thigh pain. Today she reports a pain severity of 7 and a usual severity of 3. The type of pain reported is throbbing, sharp and aching She reports that the pain is happening constantly Pain is aggravated by stretching, exercise, standing, walking and getting up from sitting. Treatments she has tried include: rest, ice, heat, exercise, anti-inflammatories and narcotics/pain meds. Currently, she is using a walker and a wheelchair to assist in ambulation. Sarah has been seen by another providerfor this condition. She has had xrays done recently. The goals for this visit include: arrange to have surgery. Review of Systems: Review of Systems Constitutional: [...] edema. Psychiatric/Behavioral: Positive for depression and insomnia. This note is written by Juani Nguyen LPN, acting as a scribe for Dr. Kasey Hassan. DRY MACHINE TENDER Associated attestation - Kasey Hassan MD - 04/10/2020 1:42 PM 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 ATTENDING ATTESTATION: This HPI and ROS was taken by Juani Nguyen LPN in my presence acting as my scribe. These notes accurately reflect my work and decisions Kasey Hassan M.D. Kasey Hassan MD - 04/10/2020 7:30 AM CST ORTHOPAEDIC ONCOLOGY CLINIC NOTE Kasey Hassan MD Chief Complaint: Chief Complaint Patient presents with ??? Initial Visit (New Patient) XR RIGHT HIP...DISCUSS SURGERY Referring Physician: Dr. Marr and Dr. Jordan Medical Oncologist: Dr. 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 2011: Bilateral mastectomies ?? [id number]: Several soft tissue procedures including resection of an 5th rib on the right and right chest wall secondary to osteomyelitis then treated by IV antibiotics with Merrem for 8 weeks and 1 year of p.o. suppressive therapy ?? Total of 18 surgeries for her breasts to include bilateral pectoral flaps ?? 06/14/2019: Right total hip arthroplasty by Dr. Jordan; implants: DP [place] acetabular shell size 54 with a 36 mm neutral liner, size 36+ 1.5 ceramic head and 6 high offset [place] stem ?? 08/22/2019: Revision right total hip arthroplasty secondary to fall with periprosthetic fracture on the femur; Dr. Jordan; DePuy reclaim stem 16 x 190 with a size 80 mm proximal body, 45 mm offset neck and a 1.5 ceramic head and 5 cables Radiation Therapy: Chemotherapy: Completed and on surveillance therapy with tumor markers History of Present Illness: Sarah Doran is a 64 y.o. female with a past history as detailed above. She presents today for evaluation of Her right hip. she has previously seen my partner Dr. Bush and was initially being considered for ORIF of the periprosthetic hip fracture however after further discussion with our trauma pa rtner Dr. Parr they believe that the wound is infected and ORIF should not be attempted. They believe that a revision to a proximal femur resection and replacement is in her best interest and therefore she has been referred to me for surgical consideration. She reports that she was doing great prior to for 20 when she fell and broke her femur. She had no concerns for infection previously. She says that it did hurt at the tip of her stem in her femur priorto her fall and now it hurts more distal in the femur. As far as her medical history we have discussed all of her oncologic history. She also has a chroniccough that has been worked up by pulmonology [address] Hipolito Benitez and she still sees him. She does report she have night sweats but she never had any wound drainage or wound issues she did have apatch of bruising for 2 days back in December as dung incisionally but it never cause any wound drainage or wound concerns at that time. Her sed rate and CRP were elevated when she saw my partner Dr. Bush and he sent her for a tap of the joint which was dry and therefore not enough fluid for culture or fluid analysis Ortho HPI Parts of the HPI notes are written by Juani Nguyen LPN, acting as a scribe for Dr. Kasey Hassan. Review of Systems: Ortho Review of Systems Please see the Orthopedic Oncology nursing assessment notes with a complete review of systems. This is taken and written by Juani Nguyen LPN, acting as a scribe for Dr. Kasey Hassan. Medical History: Past Medical History: Past Medical History: Diagnosis Date ??? Cancer (HCC) ??? Depression (HCC) ??? Diabetes mellitus (HCC) ??? High blood pressure (HCC) Past Surgical History: Past Surgical History: Procedure Laterality Date ??? ACHILLES TENDON REPAIR ??? BRACHIOPLASTY with liposuction ??? BREAST RECONSTRUCTION ??? CATARACT EXTRACTION, BILATERAL ??? CHOLECYSTECTOMY ??? FACELIFT multiple ??? HYSTERECTOMY 1998 ??? MASTECTOMY ??? ORIF ANKLE DISLOCATION Right ??? PORT PLACEMENT ??? PORT REMOVAL Social History: Social History Occupational History ??? Not on file Tobacco Use ??? Smoking status: Never Smoker ??? Smokeless tobacco: Never Used Substance and Sexual Activity ??? Alcohol use: Yes Frequency: Monthly or less Comment: 1-2 socially ??? Drug use: Never ??? Sexual activity: Not on file Family History: Family History Problem Relation Age of Onset ??? Diabetes Mother ??? Cancer Mother ??? Stroke Mother ??? Hypercalcemia Father ??? No Known Problems Sister Medications: Current Outpatient Medications on File Prior to Visit Medication Sig Dispense Refill ??? Ascorbic Acid (VITAMIN C) 1000 MG tablet Take 1,000 mg by mouth daily ??? aspirin 81 mg EC tablet Take 81 mg by mouth daily ??? AZO-CRANBERRY PO Take by mouth ??? Biotin 12439 MCG TABS Take 25,000 mcg by mouth ??? Calcium Carb-Cholecalciferol (CALCIUM-VITAMIN D) 500-200 MG-UNIT per tablet Take 1 tablet by mouth 2 times daily with meals ??? colesevelam (WELCHOL) 625 MG tablet Take 1,875 mg by mouth 2 times daily with meals ??? cyclobenzaprine (FLEXERIL) 10 mg tablet Take 10 mg by mouth 3 times daily as needed for Muscle spasms ??? diclofenac (VOLTAREN) 75 mg EC tablet Take 75 mg by mouth 2 times daily ??? dicyclomine (BENTYL) 10 mg capsule Take 10 mg by mouth 4 times daily before meals and nightly ??? ELDERBERRY PO Take 100 mg by mouth ??? Fluticasone Furoate-Vilanterol (BREO ELLIPTA IN) Inhale into the lungs ??? furosemide (LASIX) 40 mg tablet Take 40 mg by mouth daily ??? HYDROcodone-acetaminophen (NORCO) 5-325 MG per tablet Take 1 tablet by mouth every 6 hours as needed for Pain ??? HYDROcodone-homatropine (HYCODAN) 5-1.5 MG/5ML syrup Take 5 mLs by mouth every 6 hours as needed ??? metFORMIN (GLUCOPHAGE) 500 mg tablet Take 500 mg by mouth 2 times daily with meals ??? mirtazapine (REMERON) 15 mg tablet Take 15 mg by mouth nightly ??? Multiple Vitamin (MULTI-VITAMIN DAILY) TABS Take by mouth ??? nebivolol (BYSTOLIC) 5 MG tablet Take 5 mg by mouth daily ??? ondansetron (ZOFRAN) 4 mg tablet Take 4 mg by mouth every 8 hours as needed for Nausea ??? Probiotic Product (PROBIOTIC-10 ULTIMATE) CAPS Take by mouth ??? promethazine (PHENERGAN) 12.5 MG tablet Take 12.5 mg by mouth every 6 hours as needed for Nausea ??? rOPINIRole (REQUIP) 2 MG tablet Take 2 mg by mouth nightly ??? telmisartan (MICARDIS) 80 MG tablet Take 80 mg by mouth daily ??? telmisartan-hydrochlorothiazide (MICARDIS HCT) 80-25 MG per tablet Take 1 tablet by mouth daily ??? temazepam (RESTORIL) 30 MG capsule Take 30 mg by mouth nightly as needed for Sleep ??? Turmeric 500 MG CAPS Take by mouth ??? venlafaxine (EFFEXOR-XR) 150 mg 24 hr capsule Take 150 mg by mouth daily ??? Ascorbic Acid (VITAMIN C) 1000 MG tablet Take by mouth ??? dextrose 5 % SOLN 1,000 mL with MULTI-12 IV INJ 10 mL Inject into the vein daily ??? potassium chloride 20 MEQ/50ML IVPB Inject into the vein once No current facility-administered medications on file prior to visit. Allergies: Allergies Allergen Reactions ??? Compazine [Prochlorperazine Edisylate] Shortness Of Breath ??? Nitrofurantoin Rash and Other (See Comments) ??? Prochlorperazine Anaphylaxis and Other (See Comments) ??? Other Other (See Comments) ??? Vancomycin Other (See Comments) Unsure of drug or dose, but caused total renal failure ??? Adhesive Rash Can tolerate paper tape ??? Mycin [Macrolides And Ketolides] Rash Physical Exam: General Physical Exam: BP 136/67 Pulse 89 Temp 98.3 ??F (36.8 ??C) (Temporal) Resp 20 Ht 1.753 m (5' 9) Wt (!) 141.5 kg (312 lb) Comment: per pt; pt in wheelchair SpO2 97% BMI 46.07 kg/m?? General Appearance: Alert, cooperative, no distress, appears stated age Head: Normocephalic, without obvious abnormality, atraumatic Eyes: EOMI, conjunctiva/corneas clear Nose: Nares normal, no drainage Throat: Lips, mucosa, and tongue normal; teeth and gums normal Neck: Supple, symmetrical, trachea midline Back: Symmetric, no curvature, ROM normal Lungs: No audible wheezing, respirations unlabored Chest wall: No tenderness or deformity Heart: Regular rate and rhythm by pulse exam Abdomen: Soft, non-tender, no masses Extremities: Extremities normal, atraumatic, no cyanosis or edema Pulses: 2+ and symmetric all extremities Skin: Skin color, texture, turgor normal, no rashes or lesions except as noted below in MSK exam. Lymph: unable to appreciate inguinal LAD Neurologic: CNII-XII intact. Normal strength & sensation throughout Orthopaedic / Musculoskeletal Exam: Right Lower Extremity: Skin: Edema of the right lower extremity slightly greater than the left with pain to palpation aboutthe proximal femur No palpable masses or lesions, no drainage, no erythema or edema. Motor: 3/5 HF/HE/KF/KE 5/5 DF/PF/EHL/FHL Sensory: Sensation intact to light touch all dermatomes Vascular: 2+ DP/PT ROM: Hip: Did not range Knee: 120 deg flexion, 0 deg extension Ankle: 15 deg dorsiflexion, 45 deg plantar flexion Imaging: Xr Hip Wwo Pelvis Right 2 Or 3 Views Result Date: 04/10/2020 IMPRESSION: Unchanged right hip total arthroplasty with periprosthetic fracture fragments. RESIDENT RADIOLOGIST: ATTENDING RADIOLOGIST: Pedro Mckeon M.D. Xr Hip Wwo Pelvis Right 2 Or 3 Views Result Date: 03/13/2020 IMPRESSION: 1. Postoperative changes of right hip arthroplasty with periprosthetic fracture of the proximal femur as described above. The proximal cerclage wire appears incomplete. Remaining hardware appears intact. 2. Other findings as above. Attending Name:Vern Negrete D.O. Fl Therapeutic Inj/aspir Lg Joint Result Date: 03/20/2020 IMPRESSION: Unsuccessful fluoroscopically guided right hip aspiration. ATTENDING RADIOLOGIST: Scott Rice MD I was present for the entire procedure. I personally reviewed the associated images and agree with the findings. These images have been interpreted by me, KASEY HASSAN MD, independent of the radiologists interpretation as no radiology read was available at the time of documentation. Pathology: No results found for: FINALDX Labs: Results for orders placed or performed in visit on 04/10/20 Sedimentation rate Collection Time: 04/10/20 10:23 AM Result Value Ref Range Erythrocyte Sedimentation Rate 19.0 0.0 - 20.0 mm/hr C-reactive protein Collection Time: 04/10/20 10:23 AM Result Value Ref Range C-Reactive Protein 1.60 (H) 0.00 - 0.50 mg/dL Basic metabolic panel Collection Time: 04/10/20 10:23 AM Result Value Ref Range Sodium 141 136 - 145 mmol/L Potassium 4.7 (H) 3.4 - 4.5 mmol/L Chloride 100 98 - 107 mmol/L CO2 31 (H) 22 - 29 mmol/L Anion Gap 10.0 6.0 - 14.0 mmol/L BUN 23.0 8.0 - 23.0 mg/dL Calcium 9.9 8.6 - 10.2 mg/dL Glucose 140 (H) 74 - 106 mg/dL Creatinine Serum/WB 0.89 0.51 - 0.95 mg/dL eGFR >=60 ml/min/1.73m?? CBC with Auto Differential Collection Time: 04/10/20 10:23 AM Result Value Ref Range White Blood Cell Count 6.3 4.0 - 10.0 TH/cmm Red Blood Cell Count 4.23 3.80 - 4.80 M/cmm Hemoglobin 11.9 (L) 12.0 - 15.0 g/dL Hematocrit 39.3 36.0 - 46.0 % Mean Corpuscular Volume 92.9 83.0 - 101.0 fl MCH 28.1 27.0 - 32.0 pg Mean Corpuscular Hemoglobin Conc 30.3 (L) 31.5 - 34.5 g/dL Red Cell Distribution Width 16.1 (H) 12.0 - 15.0 RDW - SD 54.4 (H) 36.4 - 46.3 fL Platelet Count 196 150 - 400 TH/cmm Mean Platelet Volume 11.3 9.4 - 12.3 fl Neutrophils 68.2 (H) 44.0 - 65.0 % Lymphocytes Relative 22.5 (L) 25.0 - 46.0 % Monocytes Relative 7.1 1.0 - 10.0 % Eosinophils Relative 1.4 0.0 - 9.0 % Basophils Relative 0.3 0.0 - 4.0 % Immature Granulocytes 0.5 0.0 - 0.6 % Nucleated RBC/Auto Diff 0.0 <=0.0 /100WBC Neutrophils Absolute/Auto Diff 4.29 1.80 - 7.80 TH/cmm Lymphocyte Absolute/Auto Diff 1.42 1.00 - 3.00 TH/cmm Monocytes Absolute/Auto Diff 0.45 0.30 - 1.00 TH/cmm Eosinophil Absolute/Auto Diff 0.09 0.00 - 0.50 TH/cmm Basophil Absolute/Auto Diff 0.02 0.00 - 0.10 TH/cmm Immature Granulocytes Absolute/Auto Diff 0.03 0.00 - 0.10 TH/cmm NRBC Absolute/Auto Diff 0.00 TH/cmm Assessment: ICD-10-CM 1. Closed disp fracture of lesser trochanter of left femur with nonunion S72.122K 2. Other fracture of right femur, initial encounter for closed fracture ([facility]) S72.8X1A 3. Failure of right total hip arthroplasty, initial encounter ([facility]) T84.010A Plan: I have discussed all of her imaging as well her history with her today. We did discuss her stemmed hip pain currently and the fail hip revision. I did discuss the my partners it is felt that she was infected. I will get more inflammatory markers today. They are only slightly elevated. I do plan for biopsy for frozen section for PMNs per high-power field determine if she has acute infection during surgery. We did discuss that if I encounter purulence during surgery I will wash her out and debride thearea a pack her with antibiotic cement for a short interval staged procedure in which I will come back after a week of IV antibiotics and do the proximal femur resection and revision of the implant. If it looks good we will proceed with proximal femur resection and replacement at that time. I am hoping to retain her acetabular cup given the negative tap of her hip joint. I will then place in biotic cement around the entire implant as a spacer. I will try to retain the bone fragments if they are alive. If they look like they are we will resect them along with the rest of the tissue. I have spoken with Sarah Doran and her family concerning the risks, benefits and alternatives tosurgical intervention as well as the risk of non operative management. Those risks include, but are not limited to: Bleeding, need for blood transfusion, infection, scar, pain, damage to nerves, damageto vasculature, chance of tumor recurrence and chance of future surgery for wound/implant or infection concerns, chance of completion or propagation of pathologic fracture, nonunion/malunion/malrotation, limb length inequality, dislocation risk; anesthesia risks which include: heart attack, stroke, blood clot, pulmonary embolism and . She understands these risks and has asked appropriate questions. She elects to proceed with surgical intervention. She agrees to blood products if indicated during or after surgery. Sarah Doran was informed that this operation has been scheduled to [...] members of the team will perform parts ofthe procedure. I have assured the patient that I or another qualified surgeon will be immediately available should the need arise during surgery. All questions concerning overlapping surgery were answered and the patient gave their written consent. Most likely I will constrained her hip depending upon the soft tissue attachments she has Given her exposure to a Coban positive patient during Thanksgiving and the fact that she was tested shortly after which could been and false negative I will send her for confirmatory testing today as there is a increased perioperative mortality around 20% if she has positive despite having no symptomstoday. The specimen has been collected and is in process Weight bearing status: Nonweightbearing right lower extremity Pain medication: Requested Prescriptions Signed Prescriptions Disp Refills ??? gabapentin (NEURONTIN) 300 mg capsule 90 capsule 6 Sig: Take 1 capsule by mouth 3 times daily ??? gabapentin (NEURONTIN) 300 mg capsule 90 capsule 6 Sig: Take 1 capsule by mouth 3 times daily Consults: RTC: Patient instructed to return to clinic in 2&6 weeks with the following routine surveillanceimaging required: Wound check and x-rays right hip/femur She is satisfied with the current course as well as our current plan. All her questions were answered to her contentment. Keep the following scheduled appointments: Future Appointments Date Time Provider Department Center 05/02/2020 8:15 AM Ofelia River NP [facility] KASEY HASSAN MD DISCLAIMER: This note was prepared with voice recognition and retail planning manager software, which may be prone to retail planning manager errors DRY MACHINE TENDER documented in this encounter Plan of Treatment Upcoming Encounters Date Type Specialty Care Team Description 03/11/2022 Office Visit Orthopaedics Kasey Hassan MD [address] [facility], [place] [address] (Wo rk) documented as of this encounter Results (ABNORMAL) C-reactive protein (04/10/2020 10:23 AM 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) Analysis Performed At Patho logist Time Signature C-Reactive 1.60 (H) 0.00 - 04/10/2020 [facility] Protein 0.50 mg/dL 11:38 AM 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 DEPARTMENT OF PATHOLOGY Specimen Anatomical Collection Method / Collection Time Recei jackelyn Time (Source) Location / Volume Laterality Blood Lab Venipuncture / 04/10/2020 10:23 04/10 Unknown AM 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 10:31 AM 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 Narrative [facility] DEPARTMENT OF PATHOLOGY - 0 11:38 AM 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 Significantly decreased CRP values may b e obtained from samples taken from patients who have been treated with carboxypenici llins. Kasey Hassan MD LAB BLOOD ORDERABLES Performing Organization Address City/[facility]/ZIP Code Phon e Number [facility] DEPARTMENT OF PATHOLOGY [address] [place] [address], [place] [address] Street Sedimentation rate (04/10/2020 10:23 AM 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) [facility] gist Method Time Signature Erythrocyte 19.0 0.0 - 20.0 04/10/2020 [facility] Sedimentation Rate mm/hr 12:10 PM 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 DEPARTME NT OF PATHOLOGY Specimen Anatomical Collection Method / Collection Time Recei jackelyn Time (Source) Location / Volume Laterality Blood Lab Venipuncture / 04/10/2020 10:23 04/10 Unknown AM 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 10:31 AM 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 Narrative [facility] DEPARTMENT OF PATHOLOGY - 0 12:10 PM 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 If the anticoagulant ratio is incorrect when collecting an EDTA specimen, erythrocyte sedimentation rate may be erroneous. ??I t is recommented to fill the tube to the stated tube volume by vacutainer method. Kasey Hassan MD LAB BLOOD ORDERABLES Performing Organization Address City/State/ZIP Code Phon e Number [facility] DEPARTMENT OF PATHOLOGY [address] [place] [address], [place] [address] [place] SARS-CoV-2 RNA Panel by RT-PCR (04/10/2020 10:23 AM 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) Analysis Performed At Patho logist Time Signature SARS-CoV-2 Not Not MD DORADO 04/11/2020 [facility] PCR Detected Detected 1999 12:04 AM DEPARTMENT OF INSTRUMENT 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 PATHOLOGY Comment: The detection of SARS-CoV-2 RNA may be a ffected by variations in specimen collection techniques, patient factors (e.g. presence of symptoms) and/or stage of infection. Therefore, a negative test result does not conclusively rule out disease. Specimen (Source) Anatomical Location / Collection Collection Santiago e Received Time Laterality Method / Volume Respiratory NASOPHARYNGEAL Non-blood 04/10/2020 10:23 0 STRUCTURE / Unknown collection / AM 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 10:31 AM 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 Unknown Narrative [facility] DEPARTMENT OF PATHOLOGY - 0 12:04 AM 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 SARS-CoV-2 is the virus responsible for COVID-19. This test has been authorized by the FDA under EUA for use by authorized laboratories. This test uses RT-PCR to detect the RdRp and N genes of the SARS-CoV-2 virus, and is sensitive to 100 RNA copies/mL in viral transport media. Kasey Hassan MD MICROBIOLOGY - GENERAL ORDER BABAK Performing Organization Address City/State/ZIP Code Phon e Number [facility] DEPARTMENT OF PATHOLOGY [address] [place] [address] Street documented in this encounter Visit Diagnoses Diagnosis Closed disp fracture of lesser trochante r of left femur with nonunion - Primary Nonunion of fracture Other fracture of right femur, initial e ncounter for closed fracture (HCC) Failure of right total hip arthroplasty, initial encounter (HCC) documented in this encounter Care Teams Corporate Director Talent Assessment Relationship Specialty Start Date End Date None, No Pcp PCP - General Family Medicine 03/13/20 04/14/[address] [place] [address], [place] [address] documented as of this encounter
--- OUTSIDE RECORDS SUMMARY | 2022-02-01 20:30 | XMS_ITS | Encounter Summary ---
:1955 Author Organization [facility] Address [address] [place] [address] Phone Care Team Providers Name Role Phone Anabelle Yost MD Primary Care Provider Reason for Visit Auth/Cert Specialty Diagnoses / Procedures Referred By Contact Refer red To Contact Diagnoses Other fracture of right femur, initial encounter for closed fracture (HCC) Other fracture of right femur, initial encounter for closed fracture (HCC) [S72.8X1A] Procedures ID REVISE TOTAL HIP REPLACEMENT ID INSERT DRUG IMPLANT DEVICE REVISE TOTAL HIP INSERTION ANTIBIOTIC BEADS/SPACERS HIP Referral ID Status Reason Start Date Expiration Date Visits Requ ested Visits Authorized [id number] 1 1 Encounter Details Date Type Department Care Team Description 04/15/2020 Anesthesia Event [facility] OR Misbah Murphy MD [address] [facility] [place] [address] [address] [facility] [address] [facility] [place] [address] [place] [address] Anesthesia Record Procedure Summary Procedure Name Responsible Anesthesia Start Anesthesia Stop Anesthesiologist Time Time REVISE TOTAL HIP TO Misbah Murphy MD 04/15/20 0728 04/15/20 1446 PROXIMAL FEMUR REPLACEMENT/TOTAL ONCOLOGIC HIP REPLACEMENT (Right Hip) Events Date Time Event Comment 04/15/2020 0643 0728 An Start 0728 Equipment Ready Equipment in the room was prepared and checked. 0728 In Room Standard Monitor s Placed; VItal Signs Checked 0728 An Start Data 0737 Pre-oxygenation initiated 0737 Pre Induction/Sedation Assessmen t Patient reevaluated. Conditions appear adequate to proceed. 0737 An Induction 0740 An Intubation 0744 Eyes Checked Eyes Checked; Co nfirmed free from pressure 0747 Turned Over to Surgeon 0841 Procedure Start 0930 An Intraop Handoff 1422 An Intraop Handoff 1423 Procedure Finish 1423 An Emergence 1436 Extubation Criteria Met Patient has spontaneous respirations; sky stained head lift; obeys command; a irways suctioned 1436 Extubation 1437 an stop data 1437 Out of Room 1446 An Stop 1514 US Guid - Regional/Invasive For: Regional: Fascia Iliaca Monitoring Name Total lidocaine 1 % 50 mg Succinylcholine (Anectine) 140 mg Midazalam (Versed) 2mg amp 2 mg Propofol Bolus 10 MG/ML 200 mg fentaNYL (SUBLIMAZE) injection 250 mcg Ondansetron (Zofran) 8 mg Rocuronium (Zemuron) 165 mg phenylephrine HCl 1 MG/10ML 900 mcg Cefazolin (Ancef) 6 g ePHEDrine Sulfate 50 MG/ML 100 mg tranexamic acid 1000 MG/10ML 2 g Phenylephrine HCl (VAZCULEP) 10,000 mcg in sodium chlo ride 0.9 % infusion 627.13 mg HYDROmorphone 1 MG/ML 1 mg Glycopyrrolate 1 MG/5ML 0.8 mg Neostigmine Methylsulfate 5 MG/5ML 5 mg ropivacaine (NAROPIN) injection 0.5% 30 mL Lactated Ringers Inf. 3,200 mL 0.9% NaCl Inf. 400 mL Agents Name O2 N2O Sevoflurane Exp MAC O2 Insp Air Sevoflurane Insp O2 Exp Blood Name Total PRBC 350 mL Lines, Drains, and Airways Type Details Placement Removal Peripheral IV b. sanchez manager intranet ; 1st 04/15/20 0922 by 04/16/20 000 0 by attempt; Yes; Alcohol; Magnolia A LEILA Arnold Flushed with 10 cc NS; 20; Gauge; Left; Hand; Skin barrier; 04/16/20; Yes Wound 04/15/20; N; Yes; 04/15/20 0000 by Melanie 07/29/21 1518 by Incision; Leg; Right, LEILA Prajapati or Upper; 07/29/21 (Progamatically removed/completed); 1518 (Progamatically removed/completed) Peripheral IV 04/15/20; 0630; 1st 04/15/20 0630 by 04/16/20 18 00 by attempt; Yes; Alcohol; LEILA Orellana RN Comfort measures; None; Flushed with 3-5 cc NS; Tolerated well; 20; Gauge; Left; Forearm; Taped, Transparent; 04/16/20; 1800; Yes ETT/Airway 04/15/20; 0740; D.L.: 04/15/20 0740 by 04/15/20 1436 by Grade I View; Mihaela Worley, Joann roman, Sabas #4; 1st LUG BREAKER AND WIRE PULLER LUG BREAKER AND WIRE PULLER attempt; 7 mm; 22 cm; Lips; Video laryngoscope; Single-lumen; Cuffed, ETT passed easily without resistance.; Yes; Yes; Yes; Yes Urethral Catheter 04/15/20; 0838; 04/15/20 0838 by 04/16/20 0945 by Non-latex; 16 Fr.; LEILA Zuniga RN rpinion rn; Per order Closed/Suction Drain 04/15/20; 1321; 1; 04/15/20 1321 by Melanie Mckeon, Other (Comment) LEILA Prajapati (DEEP); Thigh; Bulb; 19 Fr.; 11/18/21 Closed/Suction Drain 04/15/20; 1358; 2; 04/15/20 1358 by Melanie Mckeon (SUPERFICIAL); LEILA Prajapati Thigh; Bulb; 15 Fr.; 11/18/21 Wound Vac NPWT 04/15/20; 1413; J. 04/15/20 1413 by Melanie Arauz MD; Yes; LEILA Prajapati Surgical; Leg; Right, Upper, Lateral; 11/18/21 documented in this encounter Social History Tobacco [...] at Date Recorded Female 04/08/2020 10:19 AM MANAGER EXPORT COVID-19 Exposure Response Date Recorded In the last month, have you been in contact with No / Unsure 04/15/2020 6:56 PM MANAGER EXPORT someone who was confirmed or suspected to have Coronavirus / COVID-19? documented as of this encounter OR Notes Anesthesia Postprocedure Evaluation - Brien Krishnan DO - 04/16/2020 4:44 AM CST Post Anesthesia Assessment Surgery Date: 04/15/2020 Sarah Mann Doran REVISE TOTAL HIP TO PROXIMAL FEMUR REPLACEMENT/TOTAL ONCOLOGIC HIP REPLACEMENT (Right Hip) INSERTION CEMENT RIGHT HIP (Right Hip) Patient Location: PACU Pain Management: Pain Relief: Adequate Analgesia Post-op Vital Signs: Stable SpO2 (%): 99 Heart Rate: 99 Respiration: 20 NIBP (S/D): 96/54 Temp: 99 Temp Source: Skin Airway Patency: Airway patent; ventilatory exchange adequate Post-op Nausea and Vomiting: None Level of Consciousness: Awake, Alert and Oriented Complications: None, Mental Status: Alert O2 Assist Device: Room air Post-op Hydration: No evidence of hydration deficits noted Patient Participation: Patient able to participate Anesthesia Type: general GER EXPORT Anesthesia Procedure Notes - Angel Lozada MD - 04/15/2020 3:20 PM MANAGER EXPORT Associated Order(s): Lower Extremity Block Lower Extremity Block: Other (See Comment) Block Type Comments: Fascia Iliaca Laterality: right Patient location during procedure: Post-Op Reason for Block: Post-op Staffing Attending Anesthesiologist: Veronica Piña MD, Medically Directed Resident: Angel Lozada MD Insertion Attempts: 1st attempt Preanesthetic Checklist Completed: pre-op evaluation, timeout performed, IV checked and monitors and equipment checked Technique Single-shot and Ultrasound Guided Monitoring Patient monitoring: ECG, SPO2 and BP Patient position: Supine Mental Status During Block: Awake Prep: Mask and Chlorhexidine Gluconate Needle Needle type: Insulated Nerve Stimulator Needle Needle gauge: 20 G 4 in Test Dose? No Meds: Loading Dose / Infusions Route: Peripheral NerveLocal Anesthetic Used? Yes Local Anesthetic: ropivacaine (NAROPIN) injection 0.5%, 30 mL Narcotics Used? No No Meds/Infusions Route: Peripheral Nerve Assessment Injection assessment: No Paresthesia, Aspiration: Neg Heme, Aspiration: Neg CSF, Smooth Injection and Slow, Incremental DosesLA visualized in fascial plane Complications None Additional Notes On exam, patient was able to dorsi and plantarflex against resistance. Sensation intact on plantar and dorsal aspects of the foot, as well as the saphenous distribution. Spoke to Dr. Hassan before block, who confirmed it was OK to proceed. GER EXPORT Associated attestation - Veronica Piña MD - 04/16/2020 6:44 AM MANAGER EXPORT I was present during the entirety of the procedure. VERONICA PIÑA MD Anesthesia Preprocedure Evaluation - Angel Lozada MD - 04/10/2020 9:25 AM CST Images from the original note were not included. NPO Date of last liquid consumption: -- Time of last liquid consumption: -- Date of last solid food consumption: -- Time of last solid food consumption: -- Comment: -- Allergies Allergen Reactions ??? Compazine [Prochlorperazine Edisylate] Shortness Of Breath ??? Nitrofurantoin Rash and Other (See Comments) ??? Prochlorperazine Anaphylaxis and Other (See Comments) ??? Other Other (See Comments) ??? Vancomycin Other (See Comments) Unsure of drug or dose, but caused total renal failure ??? Adhesive Rash Can tolerate paper tape ??? Mycin [Macrolides And Ketolides] Rash PHYSICAL EXAM Airway Mallampati: I Mouth Opening: good TM Distance: >3 FB Neck ROM: full Dental Cardiovascular regular Pulmonary Breath sounds clear to auscultation Other Findings Face to face pre op. Information obtained from patient. Ht/wt: 69 in, 312 lb Best contact: [phone] Anesthesia History Anesthesia complications Intra op awareness during MAC sedation IV access difficult No sticks to right Cardiovascular Functional Capacity Most exertional activity 04/10/2020: Currently wheelchair dependent, can transferindependently. Needs assistance with ADLs. Denies chest pain. +PERRY, relieved with rest hypertension Dx Home BP monitoring averages 140/90. Respiratory sleep apnea STOP BANG 08/08 criteria met chronic cough Onset: 2010 Followed by Rag Cutting Machine Feeder Lainey Sharma daily dyspnea Intermittent Relieved with rest GI/ Other GI Complications Diarrhea Other Complications Frequency Endocrine Diabetes Mellitus Dx 2018 Denies home FBS monitoring Hgb A1C (~03/2020): 7.4% Neurological neuropathy Hands, feet intermittent Joint/Musculoskeletal arthritis OA, bilateral knees Other Joint/Musculoskeletal Abnormality Fracture of right femur Bilateral rotator cuff tears Psycho/Social anxiety depression Hematology/Oncology Blood Transfusions No adverse reactions Cancer Breast, 03/2011 Chemo, last dose 09/2011 Bilateral mastectomy + reconstruction, [id number] Other History pain 04/10/2020: Right hip, 11/09 obesity BMI: 46.07 kg/m?? 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 HYSTERECTOMY 1998 Social History Socioeconomic History ??? Marital status: [...] file Gets together: Not on file Attends buddhism service: Not on file Active member of [...] Social History Narrative ??? Not on file E-Cigarettes/Vaping ??? E-Cigarette/Vaping Use Never Used ??? Passive Exposure No ??? Counseling Given Yes E-Cigarette/Vaping Substances E-Cigarette/Vaping Devices Complex Physical Exam ANESTHESIA PLAN ASA Score: 3 Anesthesia Plan: general Induction: intravenous Anesthetic plan and risks discussed with patient. Informed Consent: Use of blood products discussed with patient who Consented to blood. Plan discussed with LUG BREAKER AND WIRE PULLER. Attending Statement: Re-interviewed/Re-examined and No Change Beta Blockers: No, this patient is not on beta blockers. Consent: Regional/Pain Management The placement of a(an) Other: fascia iliaca block was discussed with the patient. The risks and benefits of a regional nerve block for assistance with post-operative pain control were discussed with the patient. The patient verbalized understanding, and all questions were answered. Patient was informed that Acute Pain Service will be notified for immediate post-operative evaluation and follow-up. The patient verbalized understanding, and all questions were answered. APS Pager: (Res) [phone] (TALCER) [phone] GER EXPORT documented in this encounter Miscellaneous Notes Transfer of Care - Mihaela Worley - 04/15/2020 2:46 PM CST Anesthesia Handoff Surgery Date: 04/15/2020 Sarah Doran REVISE TOTAL HIP TO PROXIMAL FEMUR REPLACEMENT/TOTAL ONCOLOGIC HIP REPLACEMENT (Right Hip) INSERTION CEMENT RIGHT HIP (Right Hip) Patient Location: PACU Pain Management: Pain Relief: Adequate Analgesia Post-op Assessment: No apparent anesthetic complications Post-op Vital Signs: Stable SpO2 (%): 98 Heart Rate: 82 Respiration: 18 NIBP (S/D): 107/76 Temp: 97.9 Temp Source: Skin Post-op Nausea and Vomiting: None Level of Consciousness: Drowsy/Arousable Complications: None, O2 Assist Device: Face mask Anesthesia Type: general GER EXPORT documented in this encounter Plan of Treatment Upcoming Encounters Date Type Specialty Care Team Description 03/11/2022 Office Visit Orthopaedics Kasey Hassan MD [address] [facility] [place], [place] [address] (Wo rk) documented as of this encounter Procedures Procedure Name Priority Date/Time Associated Comments Diagnosis ANESTHESIA BLOCK Routine 04/15/2020 3:20 PM Resul ts for this LOWER EXTREMITY MANAGER EXPORT procedure ar e in the results section. documented in this encounter Results Lower Extremity Block (04/15/2020 3:20 PM MANAGER EXPORT) Narrative Veronica Piña MD - 04/15/2020 3:20 PM MANAGER EXPORT Angel Lozada MD ? 04/15/2020 ??3:23 PM Lower Extremity Block: Other (See Comme nt) Block Type Comments: Fascia Iliaca Laterality: right Patient location during procedure: Post- Op Reason for Block: Post-op Staffing Attending Anesthesiologist: Veronica morin MD, Medically Directed Resident: Angel Lozada MD Insertion Attempts: 1st attempt Preanesthetic Checklist Completed: pre-op evaluation, timeout pe rformed, IV checked and monitors and equipment checked Technique Single-shot and Ultrasound Guided Monitoring Patient monitoring: ECG, SPO2 and BP Patient position: Supine Mental Status During Block: Awake Prep: Mask and Chlorhexidine Gluconate Needle Needle type: Insulated Nerve Stimulator Needle Needle gauge: 20 G 4 in Test Dose? No Meds: Loading Dose / Infusions Route: Peripheral NerveLocal Anesthetic Used? Yes Local Anesthetic: ropivacaine (NAROPIN) injection 0.5%, 30 mL Narcotics Used? No No Meds/Infusions Route: Peripheral Nerve Assessment Injection assessment: No Paresthesia, As piration: Neg Heme, Aspiration: Neg CSF, Smooth Injection and Slow, Incr emental DosesLA visualized in fascial plane Complications None Additional Notes On exam, patient was able to dorsi and p lantarflex against resistance. Sensation intact on plantar and dorsal a spects of the foot, as well as the saphenous distribution. Spoke to Dr. Hassan before block, who conf irmed it was OK to proceed. Misbah Murphy MD ID ANESTHESIA documented in this encounter Visit Diagnoses Not on filedocumented in this encounter Administered Medications Inactive Administered Medications - up to 3 most recent administrations Medication Order MAR Action Action Date Dose Rate Site ceFAZolin (ANCEF) injection Given 04/15/2020 12:02 PM MANAGER EXPORT 3 g PRN, Starting on Wed04/15/20 at 0748, Until Wed04/15/20 at 1446, Anesthesia Intra-op Given 04/15/2020 7:48 AM MANAGER EXPORT 3 g ePHEDrine Sulfate injection Given 04/15/2020 1:25 PM MANAGER EXPORT 25 mg PRN, Starting on Wed04/15/20 at 0817, Anesthesia Intra-op Given 04/15/2020 11:45 AM MANAGER EXPORT 25 mg Given 04/15/2020 8:34 AM MANAGER EXPORT 20 mg fentaNYL Citrate (PF) (SUBLIMAZE) inject ion Given 04/15/2020 1:19 PM MANAGER EXPORT 50 mcg PRN, Starting on Wed04/15/20 at 0737, Anesthesia Intra-op Given 04/15/2020 8:46 AM MANAGER EXPORT 100 mcg Given 04/15/2020 7:37 AM MANAGER EXPORT 100 mcg Glycopyrrolate injection Given 04/15/2020 2:18 PM MANAGER EXPORT 0.8 mg PRN, Starting on Wed04/15/20 at 1418, Anesthesia Intra-op HYDROmorphone (DILAUDID) injection Given 04/15/2020 1:20 PM MANAGER EXPORT 0.5 mg PRN, Starting on Wed04/15/20 at 1320, Anesthesia Intra-op Given 04/15/2020 11:48 AM MANAGER EXPORT 0.5 mg lactated ringers infusion New Bag 04/15/2020 2:11 PM MANAGER EXPORT Continuous PRN, Starting on Wed04/15/20 at 0728, Anesthesia Intra-op New Bag 04/15/2020 11:25 AM MANAGER EXPORT New Bag 04/15/2020 9:21 AM MANAGER EXPORT lidocaine 1 % injection Given 04/15/2020 7:37 AM MANAGER EXPORT 50 mg PRN, Starting on Wed04/15/20 at 0737, Anesthesia Intra-op Midazolam HCl (VERSED) injection Given 04/15/2020 7:28 AM MANAGER EXPORT 2 mg PRN, Starting on Wed04/15/20 at 0728, Anesthesia Intra-op Neostigmine Methylsulfate SOSY Given 04/15/2020 2:18 PM MANAGER EXPORT 5 mg PRN, Starting on Wed04/15/20 at 1418, Anesthesia Intra-op ondansetron (ZOFRAN) injection Given 04/15/2020 1:21 PM MANAGER EXPORT 8 mg PRN, Starting on Wed04/15/20 at 1321, Anesthesia Intra-op Phenylephrine HCl (VAZCULEP) New Bag 04/15/2020 9:28 AM 16 mcg /kg/min 1358.4 mL/hr 10,000 mcg in sodium chloride MANAGER EXPORT 0.9 % infusion Continuous PRN, Starting on Wed04/15/20 at 0928, Anesthesia Intra-op phenylephrine HCl IV syringe Given 04/15/2020 9:04 AM MANAGER EXPORT 100 mcg PRN, Starting on Wed04/15/20 at 0811, Anesthesia Intra-op Given 04/15/2020 9:01 AM MANAGER EXPORT 100 mcg Given 04/15/2020 8:29 AM MANAGER EXPORT 300 mcg propofol (DIPRIVAN) bolus from bag Given 04/15/2020 7:37 AM MANAGER EXPORT 200 mg PRN, Starting on Wed04/15/20 at 0737, Anesthesia Intra-op Rocuronium [place] (ZEMURON) injection S OSY Given 04/15/2020 1:19 PM MANAGER EXPORT 5 mg PRN, Starting on Wed04/15/20 at 0750, Anesthesia Intra-op Given 04/15/2020 12:41 PM MANAGER EXPORT 10 mg Given 04/15/2020 12:03 PM MANAGER EXPORT 10 mg ropivacaine (NAROPIN) injection Given 04/15/2020 3:20 PM MANAGER EXPORT 30 mLs Epidural, Starting on Wed04/15/20 at 1520, Anesthesia Intra-op sodium chloride 0.9 % infusion New Bag 04/15/2020 12:06 PM MANAGER EXPORT Continuous PRN, Starting on Wed04/15/20 at 1206, Anesthesia Intra-op succinylcholine (ANECTINE) injection Given 04/15/2020 7:38 AM MANAGER EXPORT 140 mg PRN, Starting on Wed04/15/20 at 0738, Anesthesia Intra-op tranexamic acid (CYKLOKAPRON) injection Given 04/15/2020 2:05 PM MANAGER EXPORT 1 g PRN, Starting on Wed04/15/20 at 0842, Anesthesia Intra-op Given 04/15/2020 8:42 AM MANAGER EXPORT 1 g Transfuse RBC in mL (Nursing) New Bag 04/15/2020 11:23 AM MANAGER EXPORT Routine documented in this encounter Care Teams Adjunct Instructor In Economics Relationship Specialty Start Date End Date Anabelle Yost MD PCP - General Family Medicine 04/15/[address] [place] [address] [address] [facility] [place], [id number] documented as of this encounter
--- OUTSIDE RECORDS SUMMARY | 2022-02-01 20:30 | XMS_ITS | Encounter Summary ---
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 documented as of this encounter Plan of Treatment Upcoming Encounters Date Type Specialty Care Team Description 03/11/2022 Office Visit Orthopaedics Kasey Hassan MD [address] [facility], [place] [address] (Wo rk) documented as of this encounter Procedures Procedure Name Priority Date/Time Associated Comments Diagnosis CBC WITH AUTO Routine 03/13/2020 11:52 Right hip pain Results for this DIFFERENTIAL AM GEOTECHNICAL OPERATING ENGINEER Failure of right procedure a re in total hip the results arthroplasty, section. initial encounter (HCC) SEDIMENTATION RATE Routine 03/13/2020 11:52 Right hip pa in Results for this AM GEOTECHNICAL OPERATING ENGINEER Failure of right procedure a re in total hip the results arthroplasty, section. initial encounter (HCC) CBC WITH AUTO DIFF Routine 03/13/2020 11:52 Right hip pa in Results for this AM GEOTECHNICAL OPERATING ENGINEER Failure of right procedure a re in total hip the results arthroplasty, section. initial encounter ([facility]) C-REACTIVE PROTEIN Routine 03/13/2020 11:52 Right hip pa in Results for this AM GEOTECHNICAL OPERATING ENGINEER Failure of right procedure a re in total hip the results arthroplasty, section. initial encounter (HCC) documented in this encounter Results Sedimentation rate (03/13/2020 11:52 AM GEOTECHNICAL OPERATING ENGINEER) Patholo gist Method Time Signature Erythrocyte 19.0 0.0 - 20.0 03/13/2020 [facility] Sedimentation Rate mm/hr 1:12 PM GEOTECHNICAL OPERATING ENGINEER DEPARTMEN T OF PATHOLOGY Specimen Anatomical Collection Method / Collection Time Recei jackelyn Time (Source) Location / Volume Laterality Blood Lab Venipuncture / 03/13/2020 11:52 03/13 Unknown AM GEOTECHNICAL OPERATING ENGINEER 11:54 AM GEOTECHNICAL OPERATING ENGINEER Narrative [facility] DEPARTMENT OF PATHOLOGY - 0 1:12 PM GEOTECHNICAL OPERATING ENGINEER If the anticoagulant ratio is incorrect when collecting an EDTA specimen, erythrocyte sedimentation rate may be erroneous. ??I t is recommented to fill the tube to the stated tube volume by vacutainer method. Paramjit Marr MD LAB BLOOD ORDERABLES Performing Organization Address City/State/ZIP Code Phon e Number [facility] DEPARTMENT OF PATHOLOGY [address] [facility] [place], [address] [address] (ABNORMAL) C-reactive protein (03/13/2020 11:52 AM GEOTECHNICAL OPERATING ENGINEER) Analysis Performed At Patho logist Time Signature C-Reactive 1.60 (H) 0.00 - 03/13/2020 [facility] Protein 0.50 mg/dL 12:38 PM GEOTECHNICAL OPERATING ENGINEER DEPARTMENT OF PATHOLOGY Specimen Anatomical Collection Method / Collection Time Recei jackelyn Time (Source) Location / Volume Laterality Blood Lab Venipuncture / 03/13/2020 11:52 03/13 Unknown AM GEOTECHNICAL OPERATING ENGINEER 11:54 AM GEOTECHNICAL OPERATING ENGINEER Narrative [facility] DEPARTMENT OF PATHOLOGY - 0 12:38 PM GEOTECHNICAL OPERATING ENGINEER Significantly decreased CRP values may b e obtained from samples taken from patients who have been treated with carboxypenici llins. Paramjit Marr MD LAB BLOOD ORDERABLES Performing Organization Address City/State/ZIP Code Phon e Number [facility] DEPARTMENT OF PATHOLOGY [address] [place] [address] Street (ABNORMAL) CBC with Auto Differential (03/13/2020 11:52 AM GEOTECHNICAL OPERATING ENGINEER) [facility] Method Time Signature White Blood Cell 6.2 4.0 - 03/13/2020 [facility] Count 10.0 12:25 PM GEOTECHNICAL OPERATING ENGINEER DEPARTMENT OF /cmm PATHOLOGY Red Blood Cell 4.37 3.80 - 03/13/2020 [facility] Count 4.80 12:25 PM GEOTECHNICAL OPERATING ENGINEER DEPARTMENT OF /cmm PATHOLOGY Hemoglobin 12.3 12.0 - 03/13/2020 [facility] 15.0 g/dL 12:25 PM GEOTECHNICAL OPERATING ENGINEER DEPARTMENT OF PATHOLOGY Hematocrit 40.6 36.0 - 03/13/2020 [facility] 46.0 % 12:25 PM GEOTECHNICAL OPERATING ENGINEER DEPARTMENT OF PATHOLOGY Mean Corpuscular 92.9 83.0 - 03/13/2020 [facility] Volume 101.0 fl 12:25 PM GEOTECHNICAL OPERATING ENGINEER DEPARTMENT OF PATHOLOGY MCH 28.1 27.0 - 03/13/2020 [facility] 32.0 pg 12:25 PM GEOTECHNICAL OPERATING ENGINEER DEPARTMENT OF PATHOLOGY Mean Corpuscular 30.3 (L) 31.5 - 03/13/2020 [facility] Hemoglobin Conc 34.5 g/dL 12:25 PM GEOTECHNICAL OPERATING ENGINEER DEPARTMENT OF PATHOLOGY Red Cell 16.3 (H) 12.0 - 03/13/2020 [facility] Distribution 15.0 12:25 PM GEOTECHNICAL OPERATING ENGINEER DEPARTMENT OF Width PATHOLOGY RDW - SD 55.2 (H) 36.4 - 03/13/2020 [facility] 43.3 fL 12:25 PM GEOTECHNICAL OPERATING ENGINEER DEPARTMENT OF PATHOLOGY Platelet Count 221 150 - 400 03/13/2020 [facility]/cmm 12:25 PM GEOTECHNICAL OPERATING ENGINEER DEPARTMENT OF PATHOLOGY Mean Platelet 11.0 9.4 - 03/13/2020 [facility] Volume 12.3 fl 12:25 PM GEOTECHNICAL OPERATING ENGINEER DEPARTMENT OF PATHOLOGY Neutrophils 72.8 (H) 44.0 - 03/13/2020 [facility] 65.0 % 12:25 PM GEOTECHNICAL OPERATING ENGINEER DEPARTMENT OF PATHOLOGY Lymphocytes 19.7 (L) 25.0 - 03/13/2020 [facility] Relative 46.0 % 12:25 PM GEOTECHNICAL OPERATING ENGINEER DEPARTMENT OF PATHOLOGY Monocytes 5.6 1.0 - 03/13/2020 [facility] Relative 10.0 % 12:25 PM GEOTECHNICAL OPERATING ENGINEER DEPARTMENT OF PATHOLOGY Eosinophils 1.4 0.0 - 9.0 03/13/2020 [facility] Relative % 12:25 PM [facility] DEPARTMENT OF PATHOLOGY Basophils 0.3 0.0 - 4.0 03/13/2020 [facility] Relative % 12:25 PM [facility] DEPARTMENT OF PATHOLOGY Immature 0.2 0.0 - 0.6 03/13/2020 [facility] Granulocytes % 12:25 PM GEOTECHNICAL OPERATING ENGINEER DEPARTMENT OF PATHOLOGY Comment: Immature Granulocytes are the c ombined total of Promyelocytes, Myelocytes, and Metamyelocytes. Nucleated RBC/Auto 0.0 <=0.0 /100WBC 03/13/2020 12:25 PM [facility] DEPARTMENT OF Diff GEOTECHNICAL OPERATING ENGINEER PATHOLOGY Neutrophils 4.53 1.80 - 7.80 03/13/2020 12:25 PM [facility] D EPARTMENT OF Absolute/Auto Diff TH/cmm GEOTECHNICAL OPERATING ENGINEER PATHOLOGY Lymphocyte 1.23 1.00 - 3.00 03/13/2020 12:25 PM [facility] DE PARTMENT OF Absolute/Auto Diff TH/cmm GEOTECHNICAL OPERATING ENGINEER PATHOLOGY Monocytes 0.35 0.30 - 1.00 03/13/2020 12:25 PM [facility] DEP ARTMENT OF Absolute/Auto Diff TH/cmm GEOTECHNICAL OPERATING ENGINEER PATHOLOGY Eosinophil 0.09 0.00 - 0.50 03/13/2020 12:25 PM [facility] DE PARTMENT OF Absolute/Auto Diff TH/cmm GEOTECHNICAL OPERATING ENGINEER PATHOLOGY Basophil Absolute/Auto 0.02 0.00 - 0.10 03/13/2020 12:2 5 PM [facility] DEPARTMENT OF Diff TH/cmm GEOTECHNICAL OPERATING ENGINEER PATHOLOGY Immature Granulocytes 0.01 0.00 - 0.10 03/13/2020 12:25 PM [facility] DEPARTMENT OF Absolute/Auto Diff TH/cmm GEOTECHNICAL OPERATING ENGINEER PATHOLOGY NRBC Absolute/Auto 0.00 TH/cmm 03/13/2020 12:25 PM [facility] DEPARTMENT OF Diff GEOTECHNICAL OPERATING ENGINEER PATHOLOGY Specimen Anatomical Collection Method / Collection Time Recei jackelyn Time (Source) Location / Volume Laterality Blood Lab Venipuncture / 03/13/2020 11:52 03/13 Unknown AM GEOTECHNICAL OPERATING ENGINEER 11:54 AM GEOTECHNICAL OPERATING ENGINEER Narrative [facility] DEPARTMENT OF PATHOLOGY - 0 12:25 PM GEOTECHNICAL OPERATING ENGINEER If the anticoagulant ratio is incorrect when collecting an EDTA specimen, the hematocrit, mean cell volume (MCV), and mean corpuscular hemoglobin concentration (MCHC) may be inaccurate. ??It is recomm ended to fill the tube to the stated tube volume by vacutainer method. Paramjit Marr MD LAB ONLY COLLECT PERFORMABLE S Performing Organization Address City/State/ZIP Code Phon e Number [facility] DEPARTMENT OF PATHOLOGY [address] [place] [address] [place] documented in this encounter Visit Diagnoses Diagnosis Right hip pain Pain in joint, pelvic region and thigh Failure of right total hip arthroplasty, initial encounter (HCC) documented in this encounter Care Teams Auto Claim Representative Relationship Specialty Start Date End Date None, No Pcp PCP - General Family Medicine 03/13/20 04/14/[address] [place] [address] Anabelle Yost MD PCP - General Family Medicine 04/15/20 [facility] [facility] [address] [facility] [place], [address] documented as of this encounter
--- OUTSIDE RECORDS SUMMARY | 2022-02-01 20:30 | XMS_ITS | Encounter Summary ---
:1955 Author Organization [facility] Address [address] [facility], [address] Phone Care Team Providers Name Role Phone None, No Pcp Primary Care Provider Unavailable Encounter Details Date Type Department Care Team Description 04/02/2020 Telephone [facility] - Adult Juani Nguyen L PN Orthopaedics [address] [facility] [address] [place], [address] Social History Tobacco Use Types Packs/Day Years [...] at Date Recorded Female 04/08/2020 10:19 AM AD OPERATIONS INTERN documented as of this encounter Miscellaneous Notes Telephone Encounter - Juani Nguyen LPN - 04/02/2020 2:36 PM CST Copied from [facility] #[id number]. Topic: Clinical Question/Request - Medical Concern/Question >> Apr 02, 2020 1:10 PM Marin Mary wrote: Patient is calling to report a possible covid 19 exposure and wants to discuss upcoming appt. Testednegative, and wants to make sure she will still be able to keep appt. Please call to confirm. Returned patient's call, informed her per Dr Hsasan, we will need to rs her appt to make sure she doesn't develop symptoms. Pt c/o pain, stated pain meds are not working, reports taking Acra 10, requests something else, informed her that Dr Hassan probably will not give her anything stronger but I will ask. OPERATIONS INTERN documented in this encounter Plan of Treatment Upcoming Encounters Date Type Specialty Care Team Description 03/11/2022 Office Visit Orthopaedics Kasey Hassan MD [address] [facility], [place] [address] (Wo rk) documented as of this encounter Visit Diagnoses Not on filedocumented in this encounter Care Teams Race Car Driver Relationship Specialty Start Date End Date None, No Pcp PCP - General Family Medicine 03/13/20 04/14/20 [address] [place] [facility] [place] [place] [address] documented as of this encounter
--- OUTSIDE RECORDS SUMMARY | 2022-02-01 20:30 | XMS_ITS | Encounter Summary ---
:1955 Author Organization [facility] Address [address] [place] [address] Phone Care Team Providers Name Role Phone None, No Pcp Primary Care Provider Unavailable Reason for Visit Reason Comments Hip Pain right Encounter Details Date Type Department Care Team Description 03/13/2020 Office Visit [facility] - Paramjit Mata Righ t hip pain (Primary Dx); Orthopaedics Failure of right total hip arthroplasty, initial encounter ([facility]) [address] [facility] [place] [address] [place] [address] [phone] Social History Tobacco Use Types Packs/Day Years [...] at Date Recorded Female 04/08/2020 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 documented as of this encounter Last Filed Vital Signs Vital Sign Reading Time Taken Comments Blood Pressure 119/85 03/13/2020 9:40 AM MATERIAL ASSEMBLER Pulse 90 03/13/2020 9:40 AM MATERIAL ASSEMBLER Temperature - - Respiratory Rate 20 03/13/2020 9:40 AM MATERIAL ASSEMBLER Oxygen Saturation - - Inhaled Oxygen Concentration - - Weight 136.1 kg (300 lb) 03/13/2020 9:40 AM MATERIAL ASSEMBLER Height 175.3 cm (5' 9) 03/13/2020 9:40 AM MATERIAL ASSEMBLER Body Mass Index 44.3 03/13/2020 9:40 AM MATERIAL ASSEMBLER documented in this encounter Patient Instructions Patient InstructionsBel Alonso RN - 03/13/2020 9:30 AM CST Will plan for A Fl. Guide Rt hip Aspiration and Cultures for lab RIAL ASSEMBLER documented in this encounter Progress Notes Paramjit Marr MD - 03/13/2020 9:30 AM CST Sarah Steel is a 64-year-old woman who is here in consultation from Dr. Dallin Jordan over at [facility]. Ms. Steel is a 64-year-old woman who had a right total hip arthroplasty performed in June of this year. She did well for the intervening 6-8 weeks, but had a fall on 08/20 of the same year,approximately 2 months postoperatively. At that point, she sustained a periprosthetic fracture and Dr. Jordan took her to the operating room and revised her with a distal fixation modular stem and cable plating of the calcar component and greater trochanter. Since then in followup, she has had failure of the fixation of the proximal wire, fracture of the calcar/lesser trochanteric fragment through the wire and some signs of osteolysis. 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 We discussed the patient before she arrived and she brings operative notes with her today too that we have reviewed. 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 MEDICATION LIST: In Epic. ALLERGIES: Macrobid, Compazine, some tapes. She has a questionable allergy to vancomycin. She had some evidenceof kidney injury with vancomycin usage previously and this was unsure if this was just a dose-related response or a true allergy. PAST SURGICAL HISTORY: Multiple surgical histories documented, including a cholecystectomy in 1986, rhinoplasty, breast surgeries, Achilles repair, a chest wall reconstruction, bilateral carpal tunnel releases, bilateral cataracts, and ORIF of the right ankle in 2015, and the above-mentioned arthroplasty surgeries to her right hip. No other arthroplasty surgeries to date. PHYSICAL EXAMINATION: She is a well-nourished, well-developed woman in no apparent distress. Her wounds are healed she is neurologically intact. There is pain with any motion of the hip. She is seated in a wheelchair today. X-RAYS: Reviewed and she has very poor medial column bone stock. She has some osteolysis around the distal aspect of her stem on the lateral column and she has a thin atrophic-appearing greater trochanter. I reviewed previous films from Dr. Jordan and she has had a loss of fixation of both the greater trochanteric and the calcar component. The stem does appear to be well fixed distally with some spot welds. PLAN: The patient has a complex problem. Given the lytic nature of some of the areas around her proximal shaft diaphyseal region, I am concerned for infection and I want to get a CRP and sed rate today and send her for an aspiration of the hip to help rule this out or get a better sense that this is infected. I am still concerned that the stem may be loose when we get into the operation. She has a relatively small amount of distal fit, although there are spot welds to a very short segment and I agree withDr. Jordan's plans to protect her weightbearing in the interim. The reconstructive plan, I think the best chance for her keeping this stem long-term would be to reconstitute the proximal femoral bone stock and this is also to help with motor control as we re-establish the tuberosities and space; thatis easier said than done. We are going to attempt to remove the cables, clamp the calcar fragment back in position to the greater trochanter and use either the Irma proximal femoral locking plate, which would allow fixation around the stem, or a Synthes locking plate with offset claw and fibular struts to help reconstitute the medial bone stock and also to place a hook for fixation of her greater trochanteric fragment. We discussed the very real risk of failure with this and the possible need for revision arthroplasty in the future, including a proximal femoral replacement and the morbid nature of that procedure. Given the chance that this is either infected or loose, we are also going to have aproximal femoral placement still available at the time of the operation and we are going to at that point consent her for either fixation or proximal femoral replacement. I discussed this case with Dr.Jennifer Hassan, our Orthopedic Oncology partner, and she will be available to help if that need arises intraoperatively. We both met with the patient today and discussed those eventualities at length and with her son as well. She would like to proceed as soon as possible. She is impending of a grandchild and we will try to get this scheduled on a Wednesday when Dr. Hassan and I are both in the operating room in the near future. I have conveyed this plan to Dr. Jordan at her request as well and I have asked her to give us a call if she has any questions in the meantime, and we will get the resultsof that hip aspiration before proceeding with operative intervention. (DOC:[id number]) RIAL ASSEMBLER documented in this encounter Plan of Treatment Upcoming Encounters Date Type Specialty Care Team Description 03/11/2022 Office Visit Orthopaedics Kasey Hassan MD [address] [place] [id number] (Wo rk) Scheduled Orders Name Type Priority Associated Diagnoses Order S chedule Fluid culture in Microbiology Routine Right hip pain Expected: Liquid Media Failure of right total 03/13, Expires: hip arthroplasty, 03/13/2021 initial encounter ([facility]) Body fluid Culture w/ Microbiology Routine Right hip pain Expected: gram stain Failure of right total 03/13, Expires: hip arthroplasty, 03/13/2021 initial encounter ([facility]) Anaerobic culture Microbiology Routine Right hip pain Expected: Failure of right total 03/13, Expires: hip arthroplasty, 03/13/2021 initial encounter ([facility]) Fungus culture Microbiology Routine Right hip pain Expected: Failure of right total 03/13, Expires: hip arthroplasty, 03/13/2021 initial encounter ([facility]) AFB culture w/ Stain Microbiology Routine Right hip p ain Expected: Failure of right total 03/13, Expires: hip arthroplasty, 03/13/2021 initial encounter ([facility]) Body Fluid Crystal Lab Routine Right hip candida n Expected: Analysis Failure of right total 03/20, Expires: hip arthroplasty, 03/13/2021 initial encounter ([facility]) Body Fluid Cell Count Lab Routine Right hip pain Expected: with Diff Failure of right total 03/13, Expires: hip arthroplasty, 03/13/2021 initial encounter ([facility]) documented as of this encounter Results FL Therapeutic Inj/Aspir LG Joint (03/20/2020 10:44 AM MATERIAL ASSEMBLER) Anatomical Region Laterality Modality Digital Radiography Specimen (Source) Anatomical Collection Method Collection Time Re ceived Time Location / / Volume Laterality 03/20/2020 3:34 PM MATERIAL ASSEMBLER Impressions 03/20/2020 3:37 PM MATERIAL ASSEMBLER IMPRESSION: Unsuccessful fluoroscopically guided rig ht hip aspiration. ATTENDING RADIOLOGIST: Scott Rice MD I was present for the entire procedure. ??I personally reviewed the associated images and agree with the findings. Narrative 03/20/2020 3:37 PM MATERIAL ASSEMBLER EXAM: ??FLUOROSCOPICALLY GUIDED RIGHT HIP INJECTION DATE AND TIME OF EXAM: ??03/20/2020 10:1 2 AM HISTORY: M25.551 - Pain in right hip; T84.010A - Broken internal right hip pro sthesis, initial encounter ([facility]); evaluate TECHNIQUE: ??FLUOROSCOPICALLY GUIDED RIG HT HIP [...] internal right hip pro sthesis, initial encounter ([facility]); evaluate TECHNIQUE: FLUOROSCOPICALLY GUIDED RIGHT HIP INJECTION [...] findings. Paramjit Marr MD IMG FLUOROSCOPY ORDERABLES (ABNORMAL) C-reactive protein (03/13/2020 11:52 AM MATERIAL ASSEMBLER) Analysis Performed At Patho logist Time Signature C-Reactive 1.60 (H) 0.00 - 03/13/2020 [facility] Protein 0.50 mg/dL 12:38 PM MATERIAL ASSEMBLER DEPARTMENT OF PATHOLOGY Specimen Anatomical Collection Method / Collection Time Recei jackelyn Time (Source) Location / Volume Laterality Blood Lab Venipuncture / 03/13/2020 11:52 03/13 Unknown AM MATERIAL ASSEMBLER 11:54 AM MATERIAL ASSEMBLER Narrative [facility] DEPARTMENT OF PATHOLOGY - 0 12:38 PM MATERIAL ASSEMBLER Significantly decreased CRP values may b e obtained from samples taken from patients who have been treated with carboxypenici llins. Paramjit Marr MD LAB BLOOD ORDERABLES Performing Organization Address City/State/ZIP Code Phon e Number [facility] DEPARTMENT OF PATHOLOGY [address] [facility] [place] [address] Street Sedimentation rate (03/13/2020 11:52 AM MATERIAL ASSEMBLER) Patholo gist Method Time Signature Erythrocyte 19.0 0.0 - 20.0 03/13/2020 [facility] Sedimentation Rate mm/hr 1:12 PM MATERIAL ASSEMBLER DEPARTMEN T OF PATHOLOGY Specimen Anatomical Collection Method / Collection Time Recei jackelyn Time (Source) Location / Volume Laterality Blood Lab Venipuncture / 03/13/2020 11:52 03/13 Unknown AM MATERIAL ASSEMBLER 11:54 AM MATERIAL ASSEMBLER Narrative [facility] DEPARTMENT OF PATHOLOGY - 0 1:12 PM MATERIAL ASSEMBLER If the anticoagulant ratio is incorrect when collecting an EDTA specimen, erythrocyte sedimentation rate may be erroneous. ??I t is recommented to fill the tube to the stated tube volume by vacutainer method. Paramjit Marr MD LAB BLOOD ORDERABLES Performing Organization Address City/State/ZIP Code Phon e Number [facility] DEPARTMENT OF PATHOLOGY [address] [facility] [place] [address] [place] documented in this encounter Visit Diagnoses Diagnosis Right hip pain - Primary Pain in joint, pelvic region and thigh Failure of right total hip arthroplasty, initial encounter (HCC) Right hip pain Pain in joint, pelvic region and thigh Failure of right total hip arthroplasty, initial encounter (HCC) documented in this encounter Care Teams Autobody Technician Relationship Specialty Start Date End Date None, No Pcp PCP - General Family Medicine 03/13/20 04/14/20 [address] [facility] [address] documented as of this encounter
--- OUTSIDE RECORDS SUMMARY | 2022-02-01 20:30 | XMS_ITS | Encounter Summary ---
:1955 Author Organization [facility] Address [address] [facility], [address] Phone Care Team Providers Name Role Phone None, No Pcp Primary Care Provider Unavailable Encounter Details Date Type Department Care Team Description 04/10/2020 Pre-Admission Martha Garcia Pre-op testi ng Testing Pre-Anesthesia Armando, RN (Primary Dx) Testing [address] [place], [address] Anesthesia Record Procedure Summary Procedure Name Responsible [...] - Regional/Invasive For: Regional: Fascia Iliaca Monitoring No medications on file. Agents No agents on file. Blood No blood administrations on file. Lines, Drains, and Airways Type Details Placement Removal Peripheral IV b. sanchez sack cleaning hand ; 04/15/20 0922 by 04/16/20 000 0 by attempt; Yes; Alcohol; Magnolia Arnold RN Flushed with 10 cc NS; 20; Gauge; Left; Hand; Skin barrier; 04/16/20; Yes Wound 04/15/20; N; Yes; 04/15/20 0000 by Melanie 07/29/21 1518 by Incision; Leg; Right, LEILA Prajapati or Upper; 07/29/21 (Progamatically removed/completed); 1518 (Progamatically removed/completed) Peripheral IV 04/15/20; 0630; 04/15/20 0630 by 04/16/20 18 00 by attempt; Yes; Alcohol; LEILA Orellana RN Comfort measures; None; Flushed with 3-5 cc NS; Tolerated well; 20; Gauge; Left; Forearm; Taped, Transparent; 04/16/20; 1800; Yes ETT/Airway 04/15/20; 0740; D.L.: 04/15/20 0740 by 04/15/20 1436 by Grade I View; Mihaela Worley, Joann roman, Sabas #4; COMMUNICATION SIGNALS INTELLIGENCE COMMUNICATION SIGNALS INTELLIGENCE attempt; 7 mm; 22 cm; Lips; Video [...] at Date Recorded Female 04/08/2020 10:19 AM 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 documented as of this encounter Last Filed Vital Signs Vital Sign Reading Time Taken Comments Blood Pressure 115/70 04/10/2020 9:10 AM 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 Pulse 84 04/10/2020 9:10 AM 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 Temperature - - Respiratory Rate 19 04/10/2020 9:10 AM 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 Oxygen Saturation 96% 04/10/2020 9:10 AM 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 Inhaled Oxygen Concentration - - Weight - - Height - - Body Mass Index - - documented in this encounter Miscellaneous Notes Pre-Procedure Instructions - Sharon Pizano RN - 04/10/2020 9:00 AM 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 No food, milk, carbonated beverages (pop or soda), coffee, tea, hard candy, chewing/bubble gum, smokeless tobacco or mints after midnight or the morning of your procedure. You can ONLY have up to 8 ounces (small cup) of water up until two hours BEFORE you are to arrive at [facility] for the procedure. When you wake up on 04/15/2020 the morning of you procedure, you are to take the following medicines: Medications: Flexeril (if needed), Breo, gabapentin, Bystolic, phenergan or Zofran (if needed), Effexor DO NOT take these medicines the morning of your procedure: Vitamin, cranerry, elderberry, biotin, calcium, Bentyl, lasix, Metformin, Micardis, probitoic, tumeric Other Instructions: Take a bath or shower the night before or the morning of surgery with antibacterial soap such as Dial, Lever or safeguard. Bring all medications or a complete list of medications to hospital day of surgery/ procedure. Follow doctor's instructions regarding aspirin, Voltaren. Stop multivitamin 04/20/2020. S AND MERCHANDISING ASSOCIATE documented in this encounter Plan of Treatment Upcoming Encounters Date Type Specialty Care Team Description 03/11/2022 Office Visit Orthopaedics Kasey Hassan MD [address] [facility], [place] [address] (Wo rk) documented as of this encounter Procedures Procedure Name Priority Date/Time Associated Diagnosis Comme nts EKG - ADULT Routine 04/10/2020 9:11 AM Pre-op testing Results for this 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 procedure are i n the results section . documented in this encounter Results (ABNORMAL) Basic metabolic panel (04/10/2020 10:23 AM 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) Analysis Performed At Patho logist Time Signature Sodium 141 136 - 145 04/10/2020 [facility] mmol/L 11:38 AM 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 DEPARTMENT OF PATHOLOGY Potassium 4.7 (H) 3.4 - 4.5 04/10/2020 [facility] mmol/L 11:38 AM 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 DEPARTMENT OF PATHOLOGY Chloride 100 98 - 107 04/10/2020 [facility] mmol/L 11:38 AM 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 DEPARTMENT OF PATHOLOGY CO2 31 (H) 22 - 29 04/10/2020 [facility] mmol/L 11:38 AM 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 DEPARTMENT OF PATHOLOGY Anion Gap 10.0 6.0 - 14.0 04/10/2020 [facility] mmol/L 11:38 AM 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 DEPARTMENT OF PATHOLOGY BUN 23.0 8.0 - 23.0 04/10/2020 [facility] mg/dL 11:38 AM 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 DEPARTMENT OF PATHOLOGY Calcium 9.9 8.6 - 10.2 04/10/2020 [facility] mg/dL 11:38 AM 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 DEPARTMENT OF PATHOLOGY Glucose 140 (H) 74 - 106 04/10/2020 [facility] mg/dL 11:38 AM 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 DEPARTMENT OF PATHOLOGY Creatinine 0.89 0.51 - 04/10/2020 [facility] Serum/WB 0.95 mg/dL 11:38 AM 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 DEPARTMENT OF PATHOLOGY Comment: Elevated levels of N-acetylcyst eine and X-lxkaix-n-benzoquinone imine can cause falsely decreased values. eGFR (from >=60 ml/min/1.73m?? 04/10/2020 11:38 AM [facility] DEPARTMENT OF Creatinine) 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 PATHOLOGY Specimen Anatomical Collection Method / Collection Time Recei jackelyn Time (Source) Location / Volume Laterality Blood Lab Venipuncture / 04/10/2020 10:23 04/10 Unknown AM 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 10:31 AM 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 Narrative [facility] DEPARTMENT OF PATHOLOGY - 0 11:38 AM 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 AVERAGE GFR FOR 60-69 YEARS OLD: 85 ml/min/1.73 m?? CHRONIC KIDNEY DISEASE: <60 ml/min/1.73 m?? KIDNEY FAILURE: <15 ml/min/1.73 m?? Calculated using the MDRD formula for ID [place]-traceable methods. Naveed Pate MD LAB BLOOD ORDERABLES Performing Organization Address City/State/ZIP Code Phon e Number [facility] DEPARTMENT OF PATHOLOGY [address] [place] [address] [place] EKG - Adult (04/10/2020 9:11 AM 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) Specimen (Source) Anatomical Collection Method Collection Time Re ceived Time Location / / Volume Laterality 04/10/2020 9:11 AM 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 Narrative CARDIOLOGY CARDIOECG-ORDERS - 04/10/2020 5:25 PM 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 Sinus rhythm Within normal limits No previous ECG available for comparison Electronically signed by Scott nicolas 04-10-2020 17:25:06 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 ? [facility] ? Test Date: ?2020-04-10 Pat Name: ? BOGDAN TAMIR ?Department: ?Room: ? Gender: ? F ?Acid Retort Operator: ?? [id number] : ?1955 ? Requested By: NIVIA PATEL Order Number: [id number] ?Reading MD: ?? Scott Barbosa ? Measurements Intervals ?[place] ? Rate: ? 79 ? P: ?13 [place]: ? 178 ?QRS: ?4 QRSD: ? 102 ?T: ?43 QT: ? 390 ? QTc: ?448 ? Interpretive Statements Sinus rhythm Within normal limits No previous ECG available for comparison Electronically signed by Scott nicolas 04-10-2020 17:25:06 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 Nivia Patel SPEAKING UNIT ASSEMBLER CV CARDIOECG ORDERABLES Performing Organization Address City/State/ZIP Code Phon e Number CARDIOLOGY CARDIOECG-ORDERS documented in this encounter Visit Diagnoses Diagnosis Pre-op testing - Primary Preoperative examination, unspecified documented in this encounter Care Teams Court Of Appeals Judge Relationship Specialty Start Date End Date None, No Pcp PCP - General Family Medicine 03/13/20 04/14/20 [address] [place] [facility] [address] documented as of this encounter
--- OUTSIDE RECORDS SUMMARY | 2022-02-01 20:30 | XMS_ITS | Encounter Summary ---
:1955 Author Organization [facility] Address [address] [place] [address] Phone Care Team Providers Name Role Phone None, No Pcp Primary Care Provider Unavailable Anabelle Yost MD Primary Care Provider Encounter Details Date Type Department Care Team Description 09/27/2019 Lab Requisition Main Laboratory [address] [place] [id number] Social History Tobacco Use Types Packs/Day Years Used Date Never Assessed Alcohol Habits Answer Date Recorded How often do you have a drink containing alcohol? Monthly or less 07/31/2020 How many drinks containing alcohol do you have on a Not aske d 07/31/2020 typical day when you are drinking? How often do you have six or more drinks on one Not asked 07/31/2020 occasion? 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 documented in this encounter Results SARS-CoV-2 RNA Panel by RT-PCR (09/26/2019 6:55 AM CDT) Patholo gist Method Time Signature SARS-CoV-2 Not Detected Not Detected 09/29/2019 [facility] PCR 6:03 PM CDT DEPARTMENT OF PATHOLOGY Specimen (Source) Anatomical Location / Collection Collection Santiago e Received Time Laterality Method / Volume Respiratory NASOPHARYNGEAL 09/26/2019 6:55 09/27/2019 STRUCTURE / Unknown AM CDT 10:20 AM CDT Narrative [facility] DEPARTMENT OF PATHOLOGY - 0 6:03 PM CDT The detection of SARS-CoV-2 RNA may be affected by variations in specimen collection techniques, nehemiah ent factors (e.g. presence of symptoms) and/or stage of infection. Therefore, a negative test result does not conclusively rule out disease. Method: ??This assay is a qualitative re al-time reverse transcriptase polymerase chain reaction (netsuite developer-PCR) test to detect the N1 gene of the SARS-CoV-2 virus. Disclaimer: ??This test was developed an d its performance characteristics determined by [facility] at [facility]. It has not been cleared or approved by the US Food and Drug Administration ( FDA). This laboratory is certified under the Clinical Laboratory Improvement Amendments (CLIA) as qualified to perform high complexity laboratory testing. MICROBIOLOGY - GENERAL ORDER BABAK Performing Organization Address City/State/ZIP Code Phon e Number [facility] DEPARTMENT OF PATHOLOGY [address] [facility], [address] [place] documented in this encounter Visit Diagnoses Not on filedocumented in this encounter Additional Health Concerns Infection Onset Date Last Indicated Resolved Time Rule Out COVID-19 09/27/2019 09/26/2019 09/29/2019 6:0 3 PM CDT documented as of this encounter Care Teams Fryline Attendant Relationship Specialty Start Date End Date None, No Pcp PCP - General Family Medicine 03/13/20 04/14/20 [address] [place] [address] Anabelle Yost MD PCP - General Family Medicine 04/15/20 [address] [facility] [address] [facility] [place] [address] documented as of this encounter
--- OUTSIDE RECORDS SUMMARY | 2022-02-01 20:30 | XMS_ITS | Encounter Summary ---
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 documented as of this encounter Plan of Treatment Upcoming Encounters Date Type Specialty Care Team Description 03/11/2022 Office Visit Orthopaedics Kasey Hassan MD [address] [facility], [address] (Wo rk) documented as of this encounter Results XR Hip WWO Pelvis Right 2 or 3 Views (03/13/2020 9:25 AM LABEL REWINDER) Anatomical Region Laterality Modality Hip, Pelvis Digital Radiography Specimen (Source) Anatomical Collection Method Collection Time Re ceived Time Location / / Volume Laterality 03/13/2020 9:50 AM LABEL REWINDER Impressions 03/13/2020 9:53 AM LABEL REWINDER IMPRESSION: ?? 1. ??Postoperative changes of right hip arthroplasty with periprosthetic fracture of the proximal femur as described above. The proximal cerclage wire appears incomplete. Remaining hardware appears intact. 2. ??Other findings as above. Attending Name:Pablo Decker 03/13/2020 9:53 AM LABEL REWINDER RADIOLOGICAL EXAM: ??XR HIP WWO PELVIS RIGHT [...]
--- OUTSIDE RECORDS SUMMARY | 2022-02-01 20:30 | XMS_ITS | Encounter Summary ---
:1955 Author Organization [facility] Address [address] [place] [facility] [place] [address] Phone Care Team Providers Name Role Phone None, No Pcp Primary Care Provider Unavailable Reason for Visit Reason Comments Pre-op Exam ~ PRE DR. 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 Biotin 62719 MCG TABS, Take 25,000 mcg by mouth, [...] instructions. 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
--- OUTSIDE RECORDS SUMMARY | 2022-02-01 20:32 | XMS_ITS | Encounter Summary ---
:1955 Author Organization [facility] Address [address], [place], [address] [place] [address] Care Team Providers Name Role Phone Unavailable Primary Care Provider Unavailable Reason for Visit Reason Comments PT Treatment Physical Medicine (Routine) - Closed Specialty Diagnoses / Referred By Contact Referred To Contact Procedures Physical Therapy / Procedures Vamsi Avalos, Andrés Gagr, PT Outpatient Rehabilitation Physical Therapy MD David [address] Evaluation - Plan of [address] [place], [place] [facility] [place], [phone] Referral ID Status Reason Start Date Expiration Date Visits Requ ested Visits Authorized [id number] Closed 04/21/2018 05/27/2018 11 11 Encounter Details Date Type Department Care Team Description 05/19/2018 Treatment [facility] Javi Mcgowan Chronic kendra ateral low [facility] Physical Krystyna, KISS MIXER back pain without Therapy [address] sciatica (Primary Dx) [address] [facility], [place] [phone] [place] [address] [phone] Social History Tobacco Use Types Packs/Day Years Used Date Smoking Tobacco: Never Assessed Sex Assigned at Date Recorded Not on file documented as of this encounter Progress Notes Javi [place] Stock[place]BERN[place] - 05/19/2018 10:00 AM CST Outpatient Physical Therapy Daily Treatment Note PATIENT: Sarah Doran : 1955PATIENT DATE OF SERVICE: 05/19/2018 PT Visit Number: 8 Time In/Out with intervention times: Treatment Times 05/19/2018 Start Time 9:42 AM Evaluation minutes - Therapeutic Exercise minutes 35 Manual Therapy minutes 10 Moist Heat minutes - Cryotherapy / Cold Therapy minutes 10 Therapeutic Interventions Total minutes 55 Stop Time 10:42 AM Time Calculation (min) 60 Therapy Treatment Diagnosis: . 04/21/2018 Diagnoses: cervicalgia;disorders of soft tissue, unspecified;lumbago;other disorders of soft tissue;pain in joint;pain in spine Medical Diagnosis: . 04/21/2018 Diagnoses: Cervicalgia, Lumbago, OA, DDD SUBJECTIVE Sarah Doran is a 63 y.o. female here today for a physical therapy treatment. Sup visit with Andrés Darnell, PT today. Pt states mild pain remains present in lumbar region today. She states she has continued with her HEP. Pain: Pain Assessment 05/04/2018 05/05/2018 05/16/2018 05/18/2018 05/19/2018 Pain y/n? yes yes yes yes yes Pain Rate Now (0-10) 4 4 4 4 4 Pain Rate Best (0-10) - - - - - Pain Rate Worst (0-10) - - - - - Frequency of Pain? - - - - - Pain Scoring Method Used Numeric Numeric Numeric Numeric Numeric OBJECTIVE Lumbar Exercises Double Knee To Chest Stretch Reps/Sets/Hold Time: 20 Exercise 1: flex knee abd pilates 30 Exercise 2: R bridge 30 Exercise 3: L SKC 30 Exercise 4: DKC stool S 3x 10 Exercise 5: SKC stool S 3x 10 Speciality Exercises Exercise 1: seat pelvic tilt 15 Exercise 2: sup pelvic tilt x 15 Exercise 3: stdg tband row 30 Exercise 4: stdg tband ext 30 Exercise 8: tgym dbl 30 Exercise 9: tgym sgl 30 ea Exercise 11: Seated Scap retract x 30 Exercise 12: upper trap stretch 3 x 10 ea Exercise 13: supine chin tucks x 30 Exercise 14: shoulder shrugs x 30 Manual Therapy: Received MFR/DTM to bilateral cervical/upper trap regions while seated. Modalities: Completed treatment today with CP to lumbar and cervical regions while supine x 10 minutes with L LE elevated to 90/90 position on foam block and R LE flat on mat. ASSESSMENT The patient is progressing toward achievement of goals as expected. Sarah Doran tolerated all therapeutic exercises during therapy session with no adverse effects noted this date. Currently Established Goals: Short Term Physical Therapy Goals 04/21/2018 All STG Time Frames 4wks STG #1 Decrease neck pain 80%, back pain 65% STG #2 Oswestry score improved to 35% PLAN Continue PT per established plan of care as patient tolerates. This report has been electronically signed by Javi Damon PTA May 19, 2018 OW PUMPER Associated attestation - Andrés Darnell, PT - 05/19/2018 2:00 PM TALLOW PUMPER I have reviewed the notes, assessments, and/or procedures performed by Javi Damon PTA, I concur with his documentation of Sarahcarolann Darnell Espinoza. documented in this encounter Plan of Treatment Not on filedocumented as of this encounter Visit Diagnoses Diagnosis Chronic bilateral low back pain without sciatica - Primary documented in this encounter
--- OUTSIDE RECORDS SUMMARY | 2022-02-01 20:32 | XMS_ITS | Encounter Summary ---
:1955 Author Organization [facility] Address [address] [place], [place], [address] [place] [address] Care Team Providers Name Role Phone Unavailable Primary Care Provider Unavailable Reason for Visit Reason Comments PT Treatment Physical Therapy (Routine) - Closed Specialty Diagnoses / Referred By Contact Referred To Contact Procedures Physical Therapy / Kasey Hassan Robbin J , PT Outpatient Rehabilitation MD Leatha [address] [facility] [place], [place], [place] [phone] Referral ID Status Reason Start Date Expiration Date Visits V isits Requested Authorized [id number] Closed Specialty 08/05/2020 11/01/2020 28 28 Services Required Encounter Details Date Type Department Care Team Description 08/21/2020 Treatment IslamJavi Carrero Periprosthe tic fracture of hip, sequela; [facility] Ector, SURVEYING CREW STAKE RUNNER History of right hip replacement; Therapy [address] 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 documented as of this encounter Progress Notes Javi Damon, SURVEYING CREW STAKE RUNNER - 08/21/2020 11:37 AM CDT Outpatient Physical Therapy Daily Treatment Note PATIENT: Sarah Doran : 1955PATIENT DATE OF SERVICE: 08/21/2020 PT Visit Number: 7 Time In/Out with intervention times: Treatment Times 08/21/2020 Start Time 9:56 AM Evaluation minutes - Therapeutic Exercise minutes 40 Manual Therapy minutes 10 Moist Heat minutes - Cryotherapy / Cold Therapy minutes 10 Rest minutes - Therapeutic Interventions Total minutes 60 Stop Time 11:00 AM Time Calculation (min) 64 Therapy Treatment Diagnosis: . 08/05/2020 Diagnoses: disorders of soft tissue, unspecified;muscle weakness (generalized);pain in joint;pain inlimb;spasm of muscle Medical Diagnosis: . 08/05/2020 Diagnoses: Periprosthetic fracture of proximal end of femur, Hx of R SAMIR, Failure of R SAMIR SUBJECTIVE Sarah Doran is a 65 y.o. female here today for a physical therapy treatment. Sup visit with Andrés Darnell PT. Pt states mild-moderate soreness in R hip joint. She reports decreased muscle soreness today. Pain: Pain Assessment 08/09/2020 08/13/2020 08/15/2020 08/19/2020 08/21/2020 Pain y/n? yes yes yes yes yes Pain Rate Now (0-10) 4-5 4-5 5 5 5 Pain Rate Best (0-10) - - - - - Pain Rate Worst (0-10) - - - - - Frequency of Pain? - - - - - Pain Scoring Method Used - Numeric - Numeric Numeric OBJECTIVE Lumbar Exercises Abdominal Bracing: sgl leg tbl top 3x 10ea/B Exercise 1: Ramp S 2' Exercise 1 Details: stdg hip flex 20 Exercise 2: stdg hip abd 20 Exercise 2 Details: stdg hip ext 20 Exercise 3: stdg HR 20 Exercise 3 Details: Nustep 10' Hip Exercises SLR Flexion With Hip ER : 20 SLR Flexion : 20 SLR Extension : 20 SLR Abduction : 20 Bridges: 20 Clamshells : 20 Heel Slides : pilates, tband abd 20x 5 ea Exercise 1: prone TKE 20 Exercise 2 Details: prone pilates ring IR 30 Exercise 3: windmill 20 Exercise 3 Details: SB bridges x 15 Knee Exercises Heel Slides : mikey, tband abd 20x 5 ea Prone knee flexion: 20 Manual Therapy: Received foam roller massage to R hamstrings and glutes while prone. Received DTM to R posterior hip/ piriformis region while prone. Modalities: Completed treatment today with CP to R hip while in L sidely x 10 minutes. ASSESSMENT The patient is progressing toward achievement of goals as expected. Sarah Doran tolerated all therapeutic exercises during therapy session with no adverse effects noted this date. Temperature takenupon clinic entry & patient w/out fever. Appropriate PPE donned by PT/SURVEYING CREW STAKE RUNNER & patient for PT interventions. Currently Established Goals: Short Term Physical Therapy Goals 08/05/2020 STG Time Frames 3wks STG #1 Decrease R hip pain 35% STG #2 I w/ HEP Readers' Advisory Service Librarian Physical Therapy Goals 08/05/2020 LTG Time Frames 6wks LTG #1 Decrease R hip pain 75% LTG #2 WOMAC < 25% LTG #3 Improve community ambulation to 250 yards w/ appropriate AD PLAN Continue PT per established plan of care as patient tolerates. This report has been electronically signed by Javi Damon PTA August 21, 2020 Associated attestation - Andrés Darnell PT - 08/21/2020 11:58 AM CDT I have reviewed the notes, assessments, and/or procedures performed by Javi Damon PTA, I concur with his documentation of Sarah Doran. 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
--- OUTSIDE RECORDS SUMMARY | 2022-02-01 20:32 | XMS_ITS | Encounter Summary ---
:1955 Author Organization [facility] Address [address] [place], [place], [address] [place] [address] Care Team Providers Name Role Phone Unavailable Primary Care Provider Unavailable Reason for Visit Reason Comments PT Treatment Physical Therapy (Routine) - Closed Specialty Diagnoses / Referred By Contact Referred To Contact Procedures Physical Therapy / Kasey Hassan Robbin J , PT Outpatient Rehabilitation MD Leatha [address] [facility] [place], [place] [phone] Referral ID Status Reason Start Date Expiration Date Visits V isits Requested Authorized [id number] Closed Specialty 08/05/2020 11/01/2020 28 28 Services Required Encounter Details Date Type Department Care Team Description 10/08/2020 Treatment [facility] Andrés Darnell, P T Periprosthetic fracture of hip, sequela; Group-[place] [address] History of right hip replacement; Physical Therapy [place] 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 documented as of this encounter Progress Notes Javi Damon, CIRCLE CUTTING SAW OPERATOR - 10/08/2020 11:06 AM CDT Outpatient Physical Therapy Daily Treatment Note PATIENT: Sarah Doran : 1955PATIENT DATE OF SERVICE: 10/08/2020 PT Visit Number: 19 Time In/Out with intervention times: Treatment Times 10/08/2020 Start Time 9:44 AM Evaluation minutes - Therapeutic Exercise minutes 35 Manual Therapy minutes 10 Moist Heat minutes - Cryotherapy / Cold Therapy minutes 10 Rest minutes - Therapeutic Interventions Total minutes 55 Stop Time 10:45 AM Time Calculation (min) 61 Therapy Treatment Diagnosis: . 08/05/2020 Diagnoses: disorders of soft tissue, unspecified;muscle weakness (generalized);pain in joint;pain inlimb;spasm of muscle Medical Diagnosis: . 08/05/2020 Diagnoses: Periprosthetic fracture of proximal end of femur, Hx of R SAMIR, Failure of R SAMIR SUBJECTIVE Sarah Doran is a 65 y.o. female here today for a physical therapy treatment. Sup visit with Andrés Darnell PT. Pt states decreased pain/ soreness in R hip today. Pain: Pain Assessment 09/18/2020 09/20/2020 09/24/2020 09/26/2020 10/08/2020 Pain y/n? yes yes yes yes yes Pain Rate Now (0-10) 3 3 3 3 2 Pain Rate Best (0-10) - - - - - Pain Rate Worst (0-10) - - - - - Frequency of Pain? - - - - - Pain Scoring Method Used - - Numeric Numeric Numeric OBJECTIVE Lumbar Exercises Exercise 1: Ramp S 2' Exercise 1 Details: stdg hip flex 30 Exercise 2: stdg hip abd 30 Exercise 2 Details: stdg hip ext 30 Exercise 3: stdg HR 30 Exercise 3 Details: Nustep 10' Hip Exercises SLR Flexion With Hip ER : 30 SLR Flexion : 30 SLR Extension : 30 SLR Abduction : 30 Bridges: 30 Clamshells : 30 Heel Slides : pilates, tband abd 20x 5 ea Exercise 1: prone TKE x30 Exercise 2: SL reverse CS AA x 20 Exercise 2 Details: LAQ x 30 Exercise 3: windmill 20 Exercise 3 Details: bridges x 30 Knee Exercises Heel Slides : pilates, tband abd 20x 5 ea Prone knee flexion: 30 Speciality Exercises Exercise 1: T gym DBL and SGL x30ea Exercise 1 Details: T band abd walk x 20ft ea Exercise 2: SGL leg table top hold 2 x 20 Exercise 2 Details: BOSU lunge x 20 Exercise 3: Sit-stand x 5 Manual Therapy: Received manual stretches to R hip while supine: hamstrings, adductors, gentle rotation stretches. Modalities: Completed treatment today with CP to R hip while in L sidely. ASSESSMENT The patient is progressing toward achievement of goals as expected. Sarah Doran tolerated all therapeutic exercises during therapy session with no adverse effects noted this date. Temperature takenupon clinic entry & patient w/out fever. Appropriate PPE donned by PT/CIRCLE CUTTING SAW OPERATOR & patient for PT interventions. Currently Established Goals: Short Term Physical Therapy Goals 08/05/2020 STG Time Frames 3wks STG #1 Decrease R hip pain 35% STG #2 I w/ HEP Longterm Physical Therapy Goals 08/05/2020 LTG Time Frames 6wks LTG #1 Decrease R hip pain 75% LTG #2 WOMAC < 25% LTG #3 Improve community ambulation to 250 yards w/ appropriate AD PLAN Continue PT per established plan of care as patient tolerates. This report has been electronically signed by Javi Damon PTA October 08, 2020 Associated attestation - Andrés Darnell PT - 10/08/2020 4:00 PM CDT I have reviewed the notes, assessments, [...]
--- OUTSIDE RECORDS SUMMARY | 2022-02-01 20:32 | XMS_ITS | Encounter Summary ---
:1955 Author Organization [facility] Address [address] [place], [place], [address] [place] [address] Care Team Providers Name Role Phone Unavailable Primary Care Provider Unavailable Encounter Details Date Type Department Care Team Description 07/31/2020 Travel Social History Tobacco Use Types Packs/Day Years Used Date Smoking Tobacco: Never Assessed Sex Assigned at Date Recorded Not on file COVID-19 Exposure Response Date Recorded In the last month, have you been in contact with No / Unsure 07/31/2020 10:27 AM CDT someone who was confirmed or suspected to have Coronavirus / COVID-19? documented as of this encounter Plan of Treatment Not on filedocumented as of this encounter Visit Diagnoses Not on filedocumented in this encounter
--- OUTSIDE RECORDS SUMMARY | 2022-02-01 20:32 | XMS_ITS | Encounter Summary ---
:1955 Author Organization [facility] Address [address] [place], [place], [address] [place] [address] Care Team Providers Name Role Phone Unavailable Primary Care Provider Unavailable Reason for Visit Reason Comments PT Treatment Physical Medicine (Routine) - Closed Specialty Diagnoses / Referred By Contact Referred To Contact Procedures Physical Therapy / Procedures Vamsi Avalos, Andrés Garg, PT Outpatient Rehabilitation Physical Therapy MD David [address] Evaluation - Plan of [address] [place], [place] [phone] Referral ID Status Reason Start Date Expiration Date Visits Requ ested Visits Authorized [id number] Closed 04/21/2018 05/27/2018 11 11 Encounter Details Date Type Department Care Team Description 04/22/2018 Treatment [facility] Andrés Darnell P T Cervicalgia; Group-[place] [address] Chronic bilateral low back pain without sciatica; Physical Therapy [place] Primary osteoarthritis invol ving multiple joints; [address] [facility] [phone] DDD (degenerative disc disease), lumbar; [place] DDD (degenerative disc disea se), cervical [address] [place] [phone] Social History Tobacco Use Types Packs/Day Years Used Date Smoking Tobacco: Never Assessed Sex Assigned at Date Recorded Not on file documented as of this encounter Progress Notes Andrés Darnell, PT - 04/22/2018 9:00 AM CST Outpatient Physical Therapy Daily Treatment Note PATIENT: Sarah Doran : 1955PATIENT DATE OF SERVICE: 04/22/2018 PT Visit Number: 3 Time In/Out with intervention times: Treatment Times 04/22/2018 Start Time 9:00 AM Evaluation minutes - Therapeutic Exercise minutes 35 Cryotherapy / Cold Therapy minutes 10 Therapeutic Interventions Total minutes 45 Stop Time 9:50 AM Time Calculation (min) 50 Therapy Treatment Diagnosis: . 04/21/2018 Diagnoses: cervicalgia;disorders of soft tissue, unspecified;lumbago;other disorders of soft tissue;pain in joint;pain in spine Medical Diagnosis: . 04/21/2018 Diagnoses: Cervicalgia, Lumbago, OA, DDD Supervisory visit w/ H BERNIE Damon. SUBJECTIVE Sarah Doran is a 62 y.o. female here today for a physical therapy treatment. some R hip pain after yesterday, no significant change w/ back pain Pain: Pain Assessment 04/21/2018 Pain y/n? yes Pain Rate Now (0-10) 7 Pain Rate Best (0-10) 5 Pain Rate Worst (0-10) 10 Frequency of Pain? constant Pain Scoring Method Used Numeric OBJECTIVE Lumbar Exercises Double Knee To Chest Stretch Reps/Sets/Hold Time: 20 Exercise 1: flex knee abd pilates 30 Exercise 2: R bridge 15 Exercise 3: L SKC 30 Exercise 4: DKC stool S 3x 10 w/ overpressure Exercise 5: SKC stool S 3x 10 Speciality Exercises Exercise 1: seat pelvic tilt 30 Exercise 2: seat pelvic tilt 30 Exercise 3: seat tband row 30 Exercise 4: seat tband ext 30 Exercise 5: ant pel tilt hold 30sec x 3 Exercise 7: seat ant pel tilt arm lift 30 Exercise 8: tgym dbl 30 Exercise 9: tgym sgl 30 ea Exercise 10: seat side reach 10x ea Modalities: Rec'd CP to B lumbosacral /hip region, w/ B le on wedge. ASSESSMENT Improved tolerance to tasks today. Sarah Doran tolerated all therapeutic exercises during [...] This report has been electronically signed by Andrés Darnell, PT April 22, 2018 EACH CONSULTANT documented in this encounter Plan of Treatment Not on filedocumented as of this encounter Visit Diagnoses Diagnosis Cervicalgia Chronic bilateral low back pain without sciatica Primary osteoarthritis involving multipl e joints DDD (degenerative disc disease), lumbar Degeneration of lumbar or lumbosacral in tervertebral disc DDD (degenerative disc disease), cervica l Degeneration of cervical intervertebral disc documented in this encounter
--- OUTSIDE RECORDS SUMMARY | 2022-02-01 20:32 | XMS_ITS | Encounter Summary ---
:1955 Author Organization [facility] Address [address] [place], [place], [address] [place] [address] Care Team Providers Name Role Phone Unavailable Primary Care Provider Unavailable Encounter Details Date Type Department Care Team Description 08/19/2020 Travel Social History Tobacco Use Types Packs/Day [...]
--- OUTSIDE RECORDS SUMMARY | 2022-02-01 20:32 | XMS_ITS | Encounter Summary ---
:1955 Author Organization [facility] Address [address] [place], [place], [address] [place] [address] Care Team Providers Name Role Phone Unavailable Primary Care Provider Unavailable Reason for Visit Reason Comments PT Treatment Physical Therapy (Routine) - Closed Specialty Diagnoses / Referred By Contact Referred To Contact Procedures Physical Therapy / Kasey Hassan Robbin J, PT Outpatient Rehabilitation MD Leatha [address] [facility] [place], [place] [phone] Referral ID Status Reason Start Date Expiration Date Visits V isits Requested Authorized [id number] Closed Specialty 08/05/2020 11/01/2020 28 28 Services Required Encounter Details Date Type Department Care Team Description 08/09/2020 Treatment [facility] Andrés Darnell P T Periprosthetic fracture of hip, sequela; Group-[place] [address] [place] History of right hip replacement; Physical Therapy [place] 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 documented as of this encounter Progress Notes Andrés Darnell, PT - 08/09/2020 12:53 PM CDT Outpatient Physical Therapy Daily Treatment Note PATIENT: Sarah Doran : 1955PATIENT DATE OF SERVICE: 08/09/2020 PT Visit Number: 3 Time In/Out with intervention times: Treatment Times 08/09/2020 Start Time 9:56 AM Evaluation minutes - Therapeutic Exercise minutes 50 Manual Therapy minutes 12 Moist Heat minutes - Cryotherapy / Cold Therapy minutes 10 Rest minutes - Therapeutic Interventions Total minutes 72 Stop Time 11:15 AM Time Calculation (min) 79 Therapy Treatment Diagnosis: . 08/05/2020 Diagnoses: disorders of soft tissue, unspecified;muscle weakness (generalized);pain in joint;pain inlimb;spasm of muscle Medical Diagnosis: . 08/05/2020 Diagnoses: Periprosthetic fracture of proximal end of femur, Hx of R SAMIR, Failure of R SAMIR Temperature taken upon clinic entry & patient w/out fever. Appropriate PPE donned by PT/TEASELER & patient for PT interventions. Supervisory visit w/ Javi Damon PTA. SUBJECTIVE Sarah Doran is a 65 y.o. female here today for a physical therapy treatment. Reports no real soreness. Friend brings her by today, 2* 175 ft to enter clinic. Pain: Pain Assessment 08/05/2020 08/07/2020 08/09/2020 Pain y/n? yes yes yes Pain Rate Now (0-10) 6-7 5-6 4-5 Pain Rate Best (0-10) 4 - - Pain Rate Worst (0-10) 10 - - Frequency of Pain? constant - - Pain Scoring Method Used Numeric - - OBJECTIVE Lumbar Exercises Abdominal Bracing: sgl leg tbl top 3x 10ea/B Exercise 1: Ramp S 2' Exercise 1 Details: stdg hip flex 20 Exercise 2: stdg hip abd 20 Exercise 2 Details: stdg hip ext 20 Exercise 3: stdg hip ext 20 Exercise 3 Details: Nustep 10' Hip Exercises SLR Flexion With Hip ER : 30 SLR Flexion : 30 SLR Abduction : 30 Bridges: 30 Clamshells : 30 Heel Slides : pilates, tband abd 10x 5 ea Exercise 1: prone TKE 30 Exercise 2: prone TKE 30 Exercise 2 Details: prone pilates ring IR 20 Exercise 3: windmill 20 Knee Exercises Heel Slides : pilates, tband abd 10x 5 ea Prone knee flexion: 30 Manual Therapy: Rec'd manual R HS, glute & adductor stretches, supine, along w/ roller stretch to R glute, piriformis & IT band, prone & L sidely. Modalities: Rec'd R hip CP, supine. ASSESSMENT The patient is progressing toward achievement of goals as expected. Sarah Doran tolerated all therapeutic exercises during therapy session with no adverse effects noted this date. Currently Established Goals: Short Term Physical Therapy Goals 08/05/2020 STG Time Frames 3wks STG #1 Decrease R hip pain 35% STG #2 I w/ HEP Nuclear Scientist Physical Therapy Goals 08/05/2020 LTG Time Frames 6wks LTG #1 Decrease R hip pain 75% LTG #2 WOMAC < 25% LTG #3 Improve community ambulation to 250 yards w/ appropriate AD PLAN Continue PT per established plan of care as patient tolerates. 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
--- OUTSIDE RECORDS SUMMARY | 2022-02-01 20:32 | XMS_ITS | Encounter Summary ---
:1955 Author Organization [facility] Address [address] [facility] [place], [address] [place] [address] Care Team Providers Name Role Phone Unavailable Primary Care Provider Unavailable Encounter Details Date Type Department Care Team Description 05/23/2018 Travel Social History Tobacco Use Types Packs/Day Years Used Date Smoking Tobacco: Never Assessed Sex Assigned at Date Recorded Not on file documented as of this encounter Plan of Treatment Not on filedocumented as of this encounter Visit Diagnoses Not on filedocumented in this encounter
--- OUTSIDE RECORDS SUMMARY | 2022-02-01 20:32 | XMS_ITS | Encounter Summary ---
:1955 Author Organization [facility] Address [address] [place] [place], [place], [address] [place] [address] Care Team Providers Name Role Phone Unavailable Primary Care Provider Unavailable Reason for Referral Physical Medicine (Routine) - Closed Specialty Diagnoses / Referred By Contact Referred To Contact Procedures Physical Therapy / Procedures Vamsi Avalos Robbin J, PT Outpatient Rehabilitation Physical Therapy MD David [address] Evaluation - Plan of [address], [place] [phone] Referral ID Status Reason Start Date Expiration Date Visits Requ ested Visits Authorized [id number] Closed 04/21/2018 05/27/2018 11 11 ING MACHINE MECHANIC Reason for Visit Reason Comments PT Initial Evaluation Physical Therapy (Routine) - Closed Specialty Diagnoses / Referred By Contact Referred To Contact Procedures Physical Therapy / Vamsi Avalos Robbin J , PT Outpatient Rehabilitation MD [address], [place] [phone] Referral ID Status Reason Start Date Expiration Date Visits V isits Requested Authorized [id number] Closed Specialty 04/20/2018 06/01/2018 1 1 Services Required Encounter Details Date Type Department Care Team Description 04/21/2018 Evaluation [facility] Andrés Arce, P T Cervicalgia; [facility] [address] Chronic bilateral low back pain without sciatica; Physical Therapy [place], [place] Primary osteoarthritis invol ving multiple joints[facility] [address] [facility] [address] DDD (degenerative disc disease), lumbar; [place] [phone] DDD (degenerative disc disea se), cervical [address] (Work) [place] [address] Social History Tobacco Use Types Packs/Day Years Used Date Smoking Tobacco: Never Assessed Sex Assigned at Date Recorded Not on file documented as of this encounter Progress Notes Andrés Darnell, PT - 04/21/2018 8:30 AM CST Outpatient Physical Therapy Evaluation / Plan of Care PATIENT: Sarah Doran : 1955 DATE OF SERVICE: 04/21/2018 DIAGNOSES Therapy Treatment Diagnoses: cervicalgia, disorders of soft tissue, unspecified, lumbago, other disorders of soft tissue, pain in joint, pain in spine Medical Diagnosis: Cervicalgia, Lumbago, OA, DDD HISTORY Sarah Doran is a 62 y.o. female here today for a physical therapy evaluation. She presents with R>L lumbar, hip pain/lumbago & cervicalgia, aggravated by movement, walking, standing, sleeping, sitting, ADLs and alleviated by supine w/ pillows under knees . I can't reach my R foot to put on shoes/sock; wear slip ons cause my back hurts. Rec'd PT for R hip pain late 2017 w/ mod improvements & has rec'd 6 injections which makes it tolerable. PT uitlized L heel lift that alleviated mod pain but pt is currently unable to use those shoes. Neck pain is mostly from stiffness & limited motion. Recent lumbar MRI revealed no surgical implication & pt was referred to physical med marce SILVA. Presents today w/ mod limp/SI asymmetry, that has been longstanding. Pt denies cervical orlumbar radiating pain. Pain: Pain Assessment 04/21/2018 Pain y/n? yes Pain Rate Now (0-10) 7 Pain Rate Best (0-10) 5 Pain Rate Worst (0-10) 10 Frequency of Pain? constant Pain Scoring Method Used Numeric Medical History: Noted above, overweight, OA, HTN, breast cancer w/ B mastectomy, depression, The following medical/functional factors are relevant to the plan of care: acuity/chronicity, comorbidities. The following personal factors are relevant to the plan of care: anxiety/depression, behavioral patterns, exercise habits, past/current experience, readiness for change. Medications affecting plan of care: none Home Setting/Environment TRENCH PIPE LAYER: 1-story house/ trailer Patient Lives With: alone Home Accessibility: no concerns Number of Stairs to Enter Home: 0 Number of Stairs Within Home: 0 Home Equipment: rolling walker, cane Work Status: Retired Duties: non-manual duties Activities/ADLs/Hobbies: reading Mental Status: alert Safety Awareness: good Falls: none Patient's stated goals: decrease in pain, increase in ability to perform ADL's/IADL's, increase in activity level, increase in activity tolerance and increase in endurance EXAMINATION The following body activity limitations are relevant to the plan of care: completing activities, domestic life, executing tasks, functional activities, mobility, self care. The following participation restrictions are relevant to the plan of care: community participation, family roles, interpersonal interactions, life situations, sports/hobbies, work/congregation. Palpation/Joint Mobility/Soft Tissue Mob: moderate restriction and moderate tenderness in B lumbosacral musculature Range of motion: Cervical flex 25, ext 27, RSB 10 L tight, LSB 13, RR 40 w/ R tightness, LR 30 w/ L tightness. B ue ROM WNL, w/out strain/tightness Lumbar flex 35, ext 12, RSB 14 w/ R lumbar pain, LSB 15 w/ L lumbar pain, RR 18, LR 12 w/ L pain B hip flex 60, B hip abd 10 w/ R pain when L abd, B hip ext -5 w/ R pain when L ext. R hip ER 25, IR27, L hip ER 32, IR 29. R knee ext -18, L -15. R DF 5, L 8. Manual muscle testing: Cervical 4/5, B ue 4+/5 Lumbar flex 4-/5, ext 4-/5, RSB 4-/5, LSB 4-/5, RR 4/5, LR 4-/5 B hip flex 4/5, abd on R 4-/5, L 4/5, ext on R 4-/5, L 4/5, R ER/IR 4-/5, L ER/IR 4-/5. R knee ext 4-/5, L 4/5 R DF 4/5, L 4/5 Mobility / Gait: WFL 2* limp/SI asymmetry Balance / Sensory: WNL Special tests: R le wt bear w/ mod pain; mod pain w/ ambulation, R le loading. L Scour +, stdg ASIS lower, supine L shorter, Slump -. CLINICAL PRESENTATION Sarah Doran presents with a(n) stable/uncomplicated clinical presentation based on the followingphysiologic responses pain Patient would likely benefit from further PT secondary to deficits in ROM, strength, pain, joint mobility, soft tissue mobility, endurance and functional abilities Other factors limiting therapy are sedentary lifestyle CLINICAL DECISION MAKING This evaluation is a moderate complexity because there are 1-2 history elements, 3 examination elements, and the clinical presentation is stable. The plan of care is supported by the following standardized patient assessment instrument(s): Oswestry Disability Index, The standardized patient instrument score is 74%. Neck disability index, score = 34% GOALS Short Term Physical Therapy Goals 04/21/2018 All STG Time Frames 4wks STG #1 Decrease neck pain 80%, back pain 65% STG #2 Oswestry score improved to 35% Patient has good rehab potential for the above stated goals based on current progress and motivation. PLAN Plan of Care: Initial evaluation completed today. Therapist will assess patient progress once treatment plan is initiated. Frequency/Duration: 3x week for 4 weeks Interventions: Therapeutic exercise, Therapeutic activity, Manual therapy, Thermal modalities COMMENTS/TREATMENT TODAY Time In/Out with intervention times: Treatment Times 04/21/2018 Start Time 8:53 AM Evaluation minutes 25 Therapeutic Exercise minutes 10 Therapeutic Interventions Total minutes 35 Stop Time 9:30 AM Time Calculation (min) 37 Lumbar Exercises Double Knee To Chest Stretch Reps/Sets/Hold Time: 20 Exercise 1: flex knee abd pilates 20 Exercise 2: R bridge 10 Exercise 3: L SKC 15 Modalities: Rec'd CP simultaneously while comp'g supine tasks. Findings and plan of care have been reviewed with patient/caregiver with opportunities for questions/answers. Encouraged R hip ext, L hip flex muscle energy tasks overnight. This report has been electronically signed by Andrés Darnell PT April 21, 2018 ING MACHINE MECHANIC documented in this encounter Plan of Treatment [...]
--- OUTSIDE RECORDS SUMMARY | 2022-02-01 20:32 | XMS_ITS | Encounter Summary ---
:1955 Author Organization [facility] Address [address], [place], [address] [place] [address] Care Team Providers Name Role Phone Unavailable Primary Care Provider Unavailable Reason for Visit Reason Comments PT Treatment Physical Medicine (Routine) - Closed Specialty Diagnoses / Referred By Contact Referred To Contact Procedures Physical Therapy / Procedures Vamsi Avalos, Andrés Garg, PT Outpatient Rehabilitation Physical Therapy MD [address] Evaluation - Plan of [address] [place] [address], [place] [facility] [place], [phone] Referral ID Status Reason Start Date Expiration Date Visits Requ ested Visits Authorized [id number] Closed 04/21/2018 05/27/2018 11 11 Encounter Details Date Type Department Care Team Description 05/05/2018 Treatment [facility] Javi Mcgowan Chronic kendra ateral low [facility] PTA back pain without Therapy [address] sciatica (Primary Dx) [address] [facility], [place] [address] [address] [place] [address] [phone] Social History Tobacco Use Types Packs/Day Years Used Date Smoking Tobacco: Never Assessed Sex Assigned at Date Recorded Not on file documented as of this encounter Progress Notes Javi Krystynaamaris Damon PTA - 05/05/2018 10:00 AM CST Outpatient Physical Therapy Daily Treatment Note PATIENT: Sarah Doran : 1955PATIENT DATE OF SERVICE: 05/05/2018 PT Visit Number: 5 Time In/Out with intervention times: Treatment Times 05/05/2018 Start Time 10:00 AM Evaluation minutes - Therapeutic Exercise minutes 35 Manual Therapy minutes 10 Moist Heat minutes - Cryotherapy / Cold Therapy minutes 10 Therapeutic Interventions Total minutes 55 Stop Time 11:05 AM Time Calculation (min) 65 Therapy Treatment Diagnosis: . 04/21/2018 Diagnoses: cervicalgia;disorders of soft tissue, unspecified;lumbago;other disorders of soft tissue;pain in joint;pain in spine Medical Diagnosis: . 04/21/2018 Diagnoses: Cervicalgia, Lumbago, OA, DDD SUBJECTIVE Sarah oDran is a 63 y.o. female here today for a physical therapy treatment. Sup visit with Andrés Darnell, PT today. Pt states she had a fall yesterday with only mildly increased soreness present today. Pain: Pain Assessment 04/21/2018 04/29/2018 05/04/2018 05/05/2018 Pain y/n? yes yes yes yes Pain Rate Now (0-10) 7 5-6 4 4 Pain Rate Best (0-10) 5 - - - Pain Rate Worst (0-10) 10 - - - Frequency of Pain? constant - - - Pain Scoring Method Used Numeric Numeric Numeric Numeric OBJECTIVE Lumbar Exercises Double Knee To Chest Stretch Reps/Sets/Hold Time: 20 Exercise 1: flex knee abd pilates 30 Exercise 2: R bridge 30 Exercise 3: L SKC 30 Exercise 4: DKC stool S 3x 10 Exercise 5: SKC stool S 3x 10 Speciality Exercises Exercise 1: seat pelvic tilt 30 Exercise 2: sup pelvic tilt x 30 Exercise 3: seat tband row 30 [...] tucks x 30 Exercise 14: shoulder shrugs 5# x 30 Manual Therapy: Received manual MFR to bilateral upper trap regions while seated. Modalities: Completed treatment today with CP to lumbar and cervical regions while supine x 10 minutes with L LE elevated to 90/90 position on stool. ASSESSMENT The patient is progressing toward achievement [...] electronically signed by Javi Damon PTA May 05, 2018 OTICS AND/OR VICE DETECTIVE Associated attestation - Andrés Darnell, PT - 05/05/2018 1:52 PM NARCOTICS AND/OR VICE DETECTIVE I have reviewed the notes, assessments, and/or procedures performed by Javi Damon PTA, I concur with his documentation of Sarahcarolann Darnell Espinoza. documented in this encounter Plan of Treatment Not on filedocumented as of this encounter Visit Diagnoses Diagnosis Chronic bilateral low back pain without sciatica - Primary documented in this encounter
--- OUTSIDE RECORDS SUMMARY | 2022-02-01 20:32 | XMS_ITS | Encounter Summary ---
:1955 Author Organization [facility] Address [address] [place], [place], [address] [place] [address] Care Team Providers Name Role Phone Unavailable Primary Care Provider Unavailable Reason for Visit Reason Comments PT Treatment Physical Therapy (Routine) - Closed Specialty Diagnoses / Referred By Contact Referred To Contact Procedures Physical Therapy / Kasey Hassan Robbin J , PT Outpatient Rehabilitation MD [place] [facility] [place], [place], [phone] Referral ID Status Reason Start Date Expiration Date Visits V isits Requested Authorized [id number] Closed Specialty 08/05/2020 11/01/2020 28 28 Services Required Encounter Details Date Type Department Care Team Description 09/24/2020 Treatment [facility] CatholicJavi Carrero Periprosthe tic fracture of hip, sequela; [facility] [place], INDUSTRIAL MAINTENANCE MANAGER History of right hip replacement; Therapy [address] 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 documented as of this encounter Progress Notes Javi [place] Marisol, INDUSTRIAL MAINTENANCE MANAGER - 09/24/2020 12:30 PM CDT Outpatient Physical Therapy Daily Treatment Note PATIENT: Sarah Doran : 1955PATIENT DATE OF SERVICE: 09/24/2020 PT Visit Number: 17 Time In/Out with intervention times: Treatment Times 09/24/2020 Start Time 10:40 AM Evaluation minutes - Therapeutic Exercise minutes 35 Manual Therapy minutes 12 Moist Heat minutes - Cryotherapy / Cold Therapy minutes 10 Rest minutes - Therapeutic Interventions Total minutes 57 Stop Time 11:40 AM Time Calculation (min) 60 Therapy Treatment Diagnosis: . 08/05/2020 Diagnoses: disorders of soft tissue, unspecified;muscle weakness (generalized);pain in joint;pain inlimb;spasm of muscle Medical Diagnosis: . 08/05/2020 Diagnoses: Periprosthetic fracture of proximal end of femur, Hx of R SAIMR, Failure of R SAMIR SUBJECTIVE Saarh Doran is a 65 y.o. female here today for a physical therapy treatment. Sup visit with Andrés Darnell PT. Pt states mild soreness/ stiffness in R thigh today but otherwise ready for therex. Pain: Pain Assessment 09/11/2020 09/13/2020 09/18/2020 09/20/2020 09/24/2020 Pain y/n? yes yes yes yes yes Pain Rate Now (0-10) 4 3 3 3 3 Pain Rate Best (0-10) - - - - - Pain Rate Worst (0-10) - - - - - Frequency of Pain? - - - - - Pain Scoring Method Used Numeric Numeric - - Numeric OBJECTIVE Lumbar Exercises Exercise 1: Ramp [...] Exercise 1: T gym DBL and SGL Exercise 1 Details: T band abd walk x 20ft ea Exercise 2: SGL leg table top hold 2 x 20 Exercise 2 Details: BOSU lunge x 20 Exercise 3: Sit-stand x 5 Manual Therapy: Received foam roller massage to R lateral quad region while in L sidely. Received DTM to R piriformis while prone. Received manual stretches to R hamstring while supine. Modalities: Completed treatment today with CP to R hip while in L sidely x 10 minutes. ASSESSMENT The patient is progressing toward achievement of goals as expected. Sarah Mann Doran tolerated all therapeutic exercises during therapy session with no adverse effects noted this date. Temperature takenupon clinic entry & patient w/out fever. Appropriate PPE donned by PT/INDUSTRIAL MAINTENANCE MANAGER & patient for PT interventions. Currently Established Goals: Short Term Physical Therapy Goals 08/05/2020 STG Time Frames 3wks STG #1 Decrease R hip pain 35% STG #2 I w/ HEP Jail Physical Therapy Goals 08/05/2020 LTG Time Frames 6wks LTG #1 Decrease R hip pain 75% LTG #2 WOMAC < 25% LTG #3 Improve community ambulation to 250 yards w/ appropriate AD PLAN Continue PT per established plan of care as patient tolerates. This report has been electronically signed by Javi Damon PTA September 24, 2020 Associated attestation - Andrés Darnell PT - 09/29/2020 12:33 PM CDT I have reviewed the notes, [...]
--- OUTSIDE RECORDS SUMMARY | 2022-02-01 20:32 | XMS_ITS | Encounter Summary ---
:1955 Author Organization [facility] Address [address] [place], [place], [address] [place] [address] Care Team Providers Name Role Phone Unavailable Primary Care Provider Unavailable Reason for Visit Reason Comments PT Treatment Physical Therapy (Routine) - Closed Specialty Diagnoses / Referred By Contact Referred To Contact Procedures Physical Therapy / Kasey Hassan Robbin J , PT Outpatient Rehabilitation MD [place] [address] [facility] [place], [place], [phone] Referral ID Status Reason Start Date Expiration Date Visits V isits Requested Authorized [id number] Closed Specialty 08/05/2020 11/01/2020 28 28 Services Required Encounter Details Date Type Department Care Team Description 09/04/2020 Treatment JainJavi Carrero Periprosthe tic fracture of hip, sequela; [facility] [facility] [place], WHOLESALE REPRESENTATIVE History of right hip replacement; Therapy [address] 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 documented as of this encounter Progress Notes Javi Damon, WHOLESALE REPRESENTATIVE - 09/04/2020 12:21 PM CDT Outpatient Physical Therapy Daily Treatment Note PATIENT: Sarah Doran : 1955PATIENT DATE OF SERVICE: 09/04/2020 PT Visit Number: 12 Time In/Out with intervention times: Treatment Times 09/04/2020 Start Time 9:56 AM Evaluation minutes - Therapeutic Exercise minutes 20 Manual Therapy minutes - Moist Heat minutes - Cryotherapy / Cold Therapy minutes 10 Rest minutes - Therapeutic Interventions Total minutes 30 Stop Time 10:35 AM Time Calculation (min) 39 Therapy Treatment Diagnosis: . 08/05/2020 Diagnoses: disorders of soft tissue, unspecified;muscle weakness (generalized);pain in joint;pain inlimb;spasm of muscle Medical Diagnosis: . 08/05/2020 Diagnoses: Periprosthetic fracture of proximal end of femur, Hx of R SAMIR, Failure of R SAMIR SUBJECTIVE Sarah Doran is a 65 y.o. female here today for a physical therapy treatment. Sup visit with Andrés Darnell PT. Pt states she has been short of breath this AM and wishes to perform shortened therex today. She reports she has an appointment with her MD after therapy. Pain: Pain Assessment 08/23/2020 08/28/2020 08/30/2020 09/02/2020 09/04/2020 Pain y/n? yes yes yes yes yes Pain Rate Now (0-10) 5 4 in R hip but dizzy 4 4 4 Pain Rate Best (0-10) - - - - - Pain Rate Worst (0-10) - - - - - Frequency of Pain? - - - - - Pain Scoring Method Used Numeric - Numeric Numeric Numeric OBJECTIVE Hip Exercises SLR Flexion With Hip ER : 20 SLR Flexion : 20 SLR Extension : 30 SLR Abduction : 20 Bridges: 20 Clamshells : 30 Heel Slides : pilates, tband abd 20x 5 ea Exercise 1: prone TKE x30 Knee Exercises Heel Slides : pilates, tband abd 20x 5 ea Manual Therapy: Received brief manual stretches to R hamstrings and glutes while supine. Modalities: Completed treatment today with CP to R hip while in L sidely x 10 minutes. ASSESSMENT The patient is progressing toward achievement of goals as expected. Sarah Doran tolerated all therapeutic exercises during therapy session with no adverse effects noted this date. Temperature takenupon clinic entry & patient w/out fever. Appropriate PPE donned by PT/WHOLESALE REPRESENTATIVE & patient for PT interventions. Pt O2 sat = 96% upon entering therapy. Currently Established Goals: Short Term Physical Therapy Goals 08/05/2020 STG Time Frames 3wks STG #1 Decrease R hip pain 35% STG #2 I w/ HEP Half-Way Physical Therapy Goals 08/05/2020 LTG Time Frames 6wks LTG #1 Decrease R hip pain 75% LTG #2 WOMAC < 25% LTG #3 Improve community ambulation to 250 yards w/ appropriate AD PLAN Continue PT per established plan of care as patient tolerates. This report has been electronically signed by Javi Damon PTA September 04, 2020 Associated attestation - Andrés Darnell PT - 09/04/2020 8:20 PM CDT I have reviewed the notes, assessments, and/or procedures performed by Javi Damon PTA, I concur with his documentation of Sarah Darnell Espinoza. 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
--- OUTSIDE RECORDS SUMMARY | 2022-02-01 20:32 | XMS_ITS | Encounter Summary ---
:1955 Author Organization [facility] Address [address], [place], [address] [place] [address] Care Team Providers Name Role Phone Unavailable Primary Care Provider Unavailable Reason for Visit Reason Comments PT Treatment Physical Therapy (Routine) - Closed Specialty Diagnoses / Referred By Contact Referred To Contact Procedures Physical Therapy / Kasey Hassan Robbin J , PT Outpatient Rehabilitation MD Leatha [address] [facility] [place], [place], [phone] Referral ID Status Reason Start Date Expiration Date Visits V isits Requested Authorized [id number] Closed Specialty 08/05/2020 11/01/2020 28 28 Services Required Encounter Details Date Type Department Care Team Description 08/23/2020 Treatment Javi Fuller Periprosthe tic fracture of hip, sequela; [facility] [facility] [place], LEGAL SERVICES PROFESSIONAL History of right hip replacement; Therapy [address] 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, subsequent encounter [address] [place] [address] [phone] Social History Tobacco Use Types Packs/Day Years [...] this encounter Progress Notes Javi Greenwood Marisol, LEGAL SERVICES PROFESSIONAL - 08/23/2020 11:52 AM CDT Outpatient Physical Therapy Daily Treatment Note PATIENT: Sarah Doran : 1955PATIENT DATE OF SERVICE: 08/23/2020 PT Visit Number: 8 Time In/Out with intervention times: Treatment Times 08/23/2020 Start Time 10:12 AM Evaluation minutes - Therapeutic Exercise minutes 40 Manual Therapy minutes 10 Moist Heat minutes - Cryotherapy / Cold Therapy minutes 10 Rest minutes - Therapeutic Interventions Total minutes 60 Stop Time 11:18 AM Time Calculation (min) 66 Therapy Treatment Diagnosis: . 08/05/2020 Diagnoses: disorders of soft tissue, unspecified;muscle weakness (generalized);pain in joint;pain inlimb;spasm of muscle Medical Diagnosis: . 08/05/2020 Diagnoses: Periprosthetic fracture of proximal end of femur, Hx of R SAMIR, Failure of R SAMIR SUBJECTIVE Sarah Doran is a 65 y.o. female here today for a physical therapy treatment. Sup visit with Andrés Darnell PT. Pt states mild dizziness present today; daughter drove her to clinic. She presents to therapy in and uses a quad cane to ambulate in clinic. Pain: Pain Assessment 08/13/2020 08/15/2020 08/19/2020 08/21/2020 08/23/2020 Pain y/n? yes yes yes yes yes Pain Rate Now (0-10) 4-5 5 5 5 5 Pain Rate Best (0-10) - - - - - Pain Rate Worst (0-10) - - - - - Frequency of Pain? - - - - - Pain Scoring Method Used Numeric - Numeric Numeric Numeric OBJECTIVE Lumbar Exercises [...] ea Exercise 1: prone TKE 20 Exercise 3: windmill 20 Exercise 3 Details: SB bridges x 15 Knee Exercises Heel Slides : pilates, tband abd 20x 5 ea Prone knee flexion: 20 Manual Therapy: Received manual foam roller massage to R hamstring and glute regions while prone. Received MFR/DTM to R posterior hip/ piriformis region while prone. Received manual stretches to R hamstring and hip adductors while supine. Modalities: Completed treatment today with CP to R hip while in L sidely x 10 minutes. ASSESSMENT The patient is progressing toward achievement of goals as expected. Sarah Doran tolerated all therapeutic exercises during therapy session with no adverse effects noted this date. Temperature takenupon clinic entry & patient w/out fever. Appropriate PPE donned by PT/LEGAL SERVICES PROFESSIONAL & patient for PT interventions. Currently Established Goals: Short Term Physical Therapy Goals 08/05/2020 STG Time Frames 3wks STG #1 Decrease R hip pain 35% STG #2 I w/ HEP Detention Physical Therapy Goals 08/05/2020 LTG Time Frames 6wks LTG #1 Decrease R hip pain 75% LTG #2 WOMAC < 25% LTG #3 Improve community ambulation to 250 yards w/ appropriate AD PLAN Continue PT per established plan of care as patient tolerates. This report has been electronically signed by Javi Damon PTA August 23, 2020 Associated attestation - Andrés Darnell PT - 08/23/2020 12:54 PM CDT I have reviewed the notes, [...]
--- OUTSIDE RECORDS SUMMARY | 2022-02-01 20:32 | XMS_ITS | Encounter Summary ---
:1955 Author Organization [facility] Address [address] [place], [place], [address] [place] [address] Care Team Providers Name Role Phone Unavailable Primary Care Provider Unavailable Encounter Details Date Type Department Care Team Description 09/13/2020 Travel Social History Tobacco Use Types Packs/Day Years Used Date Smoking Tobacco: Never Assessed Sex Assigned at Date Recorded Not on file COVID-19 Exposure Response Date Recorded In the last month, have you been in contact with No / Unsure 09/13/2020 9:53 AM CDT someone who was confirmed or suspected to have Coronavirus / COVID-19? documented as of this encounter Plan of Treatment Not on filedocumented as of this encounter Visit Diagnoses Not on filedocumented in this encounter
--- OUTSIDE RECORDS SUMMARY | 2022-02-01 20:32 | XMS_ITS | Encounter Summary ---
:1955 Author Organization [facility] Address [address] [place], [place], [address] [place] [address] Care Team Providers Name Role Phone Unavailable Primary Care Provider Unavailable Reason for Visit Reason Comments PT Treatment Physical Therapy (Routine) - Closed Specialty Diagnoses / Referred By Contact Referred To Contact Procedures Physical Therapy / Kasey Hassan Robbin J , PT Outpatient Rehabilitation MD Leatha [address] [facility] [place], [place], [place] [phone] Referral ID Status Reason Start Date Expiration Date Visits V isits Requested Authorized [id number] Closed Specialty 08/05/2020 11/01/2020 28 28 Services Required Encounter Details Date Type Department Care Team Description 08/15/2020 Treatment ZoroastrianismJavi Carrero Periprosthe tic fracture of hip, sequela; [facility] [facility] [place], HEEL PAINTER History of right hip replacement; Therapy [address] 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, subsequent encounter; [address] [facility] [address] Right hip pain; [address] [place], Weakness of right hip [place] [address] [phone] Social History Tobacco Use Types Packs/Day Years [...] encounter Progress Notes Andrés Darnell, PT - 08/15/2020 11:08 AM CDT Outpatient Physical Therapy Daily Treatment Note PATIENT: Sarah Doran : 1955PATIENT DATE OF SERVICE: 08/15/2020 PT Visit Number: 5 Time In/Out with intervention times: Treatment Times 08/15/2020 Start Time 9:57 AM Evaluation minutes - Therapeutic Exercise minutes 43 Manual Therapy minutes - Moist Heat minutes - Cryotherapy / Cold Therapy minutes 10 Rest minutes - Therapeutic Interventions Total minutes 53 Stop Time 10:57 AM Time Calculation (min) 60 Therapy Treatment Diagnosis: . 08/05/2020 Diagnoses: disorders of soft tissue, unspecified;muscle weakness (generalized);pain in joint;pain inlimb;spasm of muscle Medical Diagnosis: . 08/05/2020 Diagnoses: Periprosthetic fracture of proximal end of femur, Hx of R SAMIR, Failure of R SAMIR Temperature taken upon clinic entry & patient w/out fever. Appropriate PPE donned by PT/HEEL PAINTER & patient for PT interventions. Supervisory visit w/ Javi Damon PTA. SUBJECTIVE Sarah Doran is a 65 y.o. female here today for a physical therapy treatment. Reports R hip hurting today, started yesterday morning. Discussed any possible causes; could have been [employer] leg press, which was new task. Pain: Pain Assessment 08/05/2020 08/07/2020 08/09/2020 08/13/2020 08/15/2020 Pain y/n? yes yes yes yes yes Pain Rate Now (0-10) 6-7 5-6 4-5 4-5 5 Pain Rate Best (0-10) 4 - - - - Pain Rate Worst (0-10) 10 - - - - Frequency of Pain? constant - - - - Pain Scoring Method Used Numeric - - Numeric - OBJECTIVE Lumbar Exercises Abdominal Bracing: sgl leg tbl top 3x 10ea/B Exercise 1: Ramp S 2' Exercise 1 Details: stdg hip flex 15 Exercise 2: stdg hip abd 15 Exercise 2 Details: stdg hip ext 15 Exercise 3: stdg HR 20 Exercise 3 Details: Nustep 10' Hip Exercises SLR Flexion With Hip ER : 20 SLR Flexion : 20 SLR Extension : 20 SLR Abduction : 20 Bridges: 20 Clamshells : 20 Heel Slides : pilates, tband abd 20x 5 ea Exercise 1: prone TKE 20 Exercise 2: prone TKE 20 Exercise 3: windmill 20 Exercise 3 Details: SB bridges x 15 Knee Exercises Heel Slides : pilates, tband abd 20x 5 ea Prone knee flexion: 20 Modalities: Rec'd R hip CP, in L sidely. ASSESSMENT The patient is progressing toward achievement of goals as expected. Sarah Doran tolerated all therapeutic exercises during therapy session with no adverse effects noted this date. Currently Established Goals: Short Term Physical Therapy Goals 08/05/2020 STG Time Frames 3wks STG #1 Decrease R hip pain 35% STG #2 I w/ HEP [facility] Physical Therapy Goals 08/05/2020 LTG Time Frames 6wks LTG #1 Decrease R hip pain 75% LTG #2 WOMAC < 25% LTG #3 Improve community ambulation to 250 yards w/ appropriate AD PLAN Continue PT per established plan of care as patient tolerates. 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
--- OUTSIDE RECORDS SUMMARY | 2022-02-01 20:32 | XMS_ITS | Encounter Summary ---
:1955 Author Organization [facility] Address [address] [place], [place], [address] [place] [address] Care Team Providers Name Role Phone Unavailable Primary Care Provider Unavailable Reason for Visit Reason Comments PT Treatment Physical Therapy (Routine) - Closed Specialty Diagnoses / Referred By Contact Referred To Contact Procedures Physical Therapy / Kasey Hassan Robbin J , PT Outpatient Rehabilitation MD Leatha [address] [facility] [place], [place], [phone] Referral ID Status Reason Start Date Expiration Date Visits V isits Requested Authorized [id number] Closed Specialty 08/05/2020 11/01/2020 28 28 Services Required Encounter Details Date Type Department Care Team Description 08/30/2020 Treatment AdventistJavi Carrero Periprosthe tic fracture of hip, sequela; [facility] [facility] [place], FLIGHT DECK OFFICER History of right hip replacement; Therapy [address] 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 documented as of this encounter Progress Notes Misbah Walker, FLIGHT DECK OFFICER - 08/30/2020 12:32 PM CDT Outpatient Physical Therapy Daily Treatment Note PATIENT: Sarah Doran : 1955PATIENT DATE OF SERVICE: 08/30/2020 PT Visit Number: 9 This visit was supervised by Andrés Darnell DPT Time In/Out with intervention times: Treatment Times 08/30/2020 Start Time 10:00 AM Evaluation minutes - Therapeutic Exercise minutes 45 Manual Therapy minutes - Moist Heat minutes - Cryotherapy / Cold Therapy minutes 10 Rest minutes - Therapeutic Interventions Total minutes 55 Stop Time 11:00 AM Time Calculation (min) 60 Therapy Treatment Diagnosis: . 08/05/2020 Diagnoses: disorders of soft tissue, unspecified;muscle weakness (generalized);pain in joint;pain inlimb;spasm of muscle Medical Diagnosis: . 08/05/2020 Diagnoses: Periprosthetic fracture of proximal end of femur, Hx of R SAMIR, Failure of R SAMIR SUBJECTIVE Sarah Doran is a 65 y.o. female here today for a physical therapy treatment. Patient reports pain in her R hip which she rates as 4/10 on numeric scale upon arrival. Pain: Pain Assessment 08/19/2020 08/21/2020 08/23/2020 08/28/2020 08/30/2020 Pain y/n? yes yes yes yes yes Pain Rate Now (0-10) 5 5 5 4 in R hip but dizzy 4 Pain Rate Best (0-10) - - - - - Pain Rate Worst (0-10) - - - - - Frequency of Pain? - - - - - Pain Scoring Method Used Numeric Numeric Numeric - Numeric OBJECTIVE Lumbar Exercises Exercise 1: [...] : 20 Bridges: 20 Clamshells : 20 Exercise 3: windmill 20 Modalities: Completed treatment today with CP to R hip while in L sidely x 10 minutes. ASSESSMENT The patient is progressing toward achievement of goals as expected. Sarah Doran tolerated all therapeutic exercises during therapy session with no adverse effects noted this date. Temperature takenupon clinic entry & patient w/out fever. Appropriate PPE donned by PT/FLIGHT DECK OFFICER & patient for PT interventions. Currently Established Goals: Short Term Physical Therapy Goals 08/05/2020 STG Time Frames 3wks STG #1 Decrease R hip pain 35% STG #2 I w/ HEP Roof Truss Detailer Physical Therapy Goals 08/05/2020 LTG Time Frames 6wks LTG #1 Decrease R hip pain 75% LTG #2 WOMAC < 25% LTG #3 Improve community ambulation to 250 yards w/ appropriate AD PLAN Continue PT per established plan of care as patient tolerates. This report has been electronically signed by Misbah Walker PTA August 30, 2020 Associated attestation - Andrés Darnell PT - 08/30/2020 8:56 PM CDT I have reviewed the notes, assessments, and/or procedures performed by Misbah Walker PTA, I concur with his documentation of [...]
--- OUTSIDE RECORDS SUMMARY | 2022-02-01 20:32 | XMS_ITS | Encounter Summary ---
:1955 Author Organization [facility] Address [address] [place], [place], [address] [place] [address] Care Team Providers Name Role Phone Unavailable Primary Care Provider Unavailable Encounter Details Date Type Department Care Team Description 09/20/2020 Travel Social History Tobacco Use Types Packs/Day [...]
--- OUTSIDE RECORDS SUMMARY | 2022-02-01 20:32 | XMS_ITS | Encounter Summary ---
:1955 Author Organization [facility] Address [address] [facility] [place], [address] [place] [address] Care Team Providers Name Role Phone Unavailable Primary Care Provider Unavailable Reason for Referral Physical Therapy (Routine) - Closed Specialty Diagnoses / Referred By Contact Referred To Contact Procedures Physical Therapy / Kasey Hassan Robbin J , PT Outpatient Rehabilitation MD Leatha [address] [facility] [place] [phone] Referral ID Status Reason Start Date Expiration Date Visits V isits Requested Authorized [id number] Closed Specialty 08/05/2020 11/01/2020 28 28 Services Required Comments Physical Therapy Referral Order Patient: Sarah Doran Date: 08/05/20 Treatment Diagnosis: history of left hip replacement Frequency: left to PT discretion Duration: left to PT discretion Therapy Services Ordered: PT Adult Evaluate and Treatment Precautions/Restrictions: None Encounter Details Date Type Department Care Team Description 08/05/2020 Orders Only [facility] Kasey Hassan, [facility] [facility] [address] [facility] [address] [place] [address] [place], [address] [phone] Social History Tobacco Use Types Packs/Day Years Used Date Smoking Tobacco: Never Assessed Sex Assigned at Date Recorded Not on file COVID-19 Exposure Response Date Recorded In the last month, have you been in contact with No / Unsure 07/31/2020 10:27 AM CDT someone who was confirmed or suspected to have Coronavirus / COVID-19? documented as of this encounter Plan of Treatment Scheduled Referrals Name Type Priority Associated Order Schedule Diagnoses Ambulatory referral Outpatient Referral Routine E xpected: to Physical Therapy 08/06/19, Expires: 12/03/2020 documented as of this encounter Visit Diagnoses Not on filedocumented in this encounter
--- OUTSIDE RECORDS SUMMARY | 2022-02-01 20:32 | XMS_ITS | Encounter Summary ---
:1955 Author Organization [facility] Address [address] [place], [place], [address] [place] [address] Care Team Providers Name Role Phone Unavailable Primary Care Provider Unavailable Reason for Visit Reason Comments PT Treatment Physical Medicine (Routine) - Closed Specialty Diagnoses / Referred By Contact Referred To Contact Procedures Physical Therapy / Procedures Vamsi Avalos, Andrés Garg, PT Outpatient Rehabilitation Physical Therapy MD David [address] - Plan of [address] [place], [place] [phone] Referral ID Status Reason Start Date Expiration Date Visits Requ ested Visits Authorized [id number] Closed 04/21/2018 05/27/2018 11 11 Encounter Details Date Type Department Care Team Description 05/23/2018 Treatment [facility] nAdrés Darnell P T Chronic bilateral low back pain without sciatica; [facility] [address] Cervicalgia; Physical Therapy [place] Primary osteoarthritis invol ving multiple joints; [address] [facility] [phone] DDD (degenerative disc disease), lumbar; [place] DDD (degenerative disc disea se), cervical [address] [place] [address] Social History Tobacco Use Types Packs/Day Years Used Date Smoking Tobacco: Never Assessed Sex Assigned at Date Recorded Not on file documented as of this encounter Progress Notes Andrés Darnell, PT - 05/23/2018 10:15 AM CST Outpatient Physical Therapy Daily Treatment Note PATIENT: Sarah Doran : 1955PATIENT DATE OF SERVICE: 05/23/2018 PT Visit Number: 9 Time In/Out with intervention times: Treatment Times 05/23/2018 Start Time 10:20 AM Evaluation minutes - Therapeutic Exercise minutes 35 Manual Therapy minutes 15 Moist Heat minutes - Cryotherapy / Cold Therapy minutes 10 Therapeutic Interventions Total minutes 60 Stop Time 11:30 AM Time Calculation (min) 70 Therapy Treatment Diagnosis: . 04/21/2018 Diagnoses: cervicalgia;disorders of soft tissue, unspecified;lumbago;other disorders of soft tissue;pain in joint;pain in spine Medical Diagnosis: . 04/21/2018 Diagnoses: Cervicalgia, Lumbago, OA, DDD Supervisory visit w/ H PTA. Marisol SUBJECTIVE Sarah Doran is a 63 y.o. female here today for a physical therapy treatment. When I move, my back pain is 3/10, at rest 1/10. R> L neck pain = 3/10. Pain: Pain Assessment 05/05/2018 05/16/2018 05/18/2018 05/19/2018 05/23/2018 Pain y/n? yes yes yes yes yes Pain Rate Now (0-10) 4 4 4 4 3 Pain Rate Best (0-10) - - - - - Pain Rate Worst (0-10) - - - - - Frequency of Pain? - - - - - Pain Scoring Method Used Numeric Numeric Numeric Numeric - OBJECTIVE Lumbar Exercises Double Knee To Chest Stretch Reps/Sets/Hold Time: 30 Exercise 1: flex knee abd pilates 30 Exercise 2: R bridge 30 Exercise 3: L SKC 30 Exercise 4: DKC stool S 3x 10 Exercise 5: DKC stool S 3x 10 Speciality Exercises Exercise 1: seat pelvic tilt 30 Exercise 2: sup pelvic tilt x 15 Exercise 3: stdg tband row 30 Exercise 4: stdg tband ext 30 Exercise 5: bridges 30 Exercise 8: tgym dbl 30 Exercise 9: tgym sgl 30 ea Exercise 11: Seated Scap retract x 30 Exercise 12: upper trap stretch 3 x 10 ea Exercise 13: supine chin tucks x 30 Exercise 14: shoulder shrugs x 30 Manual Therapy: Rec'd cervical overpressure stretches, flexion & B rotation, seated. Rec'd lumbar & B le manual stretches, supine. Modalities: Rec'd CP to lumbar & B hip musculature, supine on wedge. ASSESSMENT The patient is progressing toward achievement [...] been electronically signed by Andrés Darnell PT May 23, 2018 IMEN PREPARATION ASSISTANT documented in this encounter Plan of Treatment Not on filedocumented as of this encounter Visit Diagnoses Diagnosis Chronic bilateral low back pain without sciatica Cervicalgia Primary osteoarthritis involving multipl e joints DDD (degenerative disc disease), lumbar Degeneration of lumbar or lumbosacral in tervertebral disc DDD (degenerative disc disease), cervica l Degeneration of cervical intervertebral disc documented in this encounter
--- OUTSIDE RECORDS SUMMARY | 2022-02-01 20:32 | XMS_ITS | Encounter Summary ---
:1955 Author Organization [facility] Address [address], [place], [address] [place] [address] Care Team Providers Name Role Phone Unavailable Primary Care Provider Unavailable Reason for Visit Reason Comments PT Treatment Physical Medicine (Routine) - Closed Specialty Diagnoses / Referred By Contact Referred To Contact Procedures Physical Therapy / Procedures Vamsi Avalos, Andrés Garg, PT Outpatient Rehabilitation Physical Therapy MD David [address] Evaluation - Plan of [address] [place], [place] [facility] [place], [phone] Referral ID Status Reason Start Date Expiration Date Visits Requ ested Visits Authorized [id number] Closed 04/21/2018 05/27/2018 11 11 Encounter Details Date Type Department Care Team Description 04/29/2018 Treatment [facility] Javi Mcgowan Chronic kendra ateral low [facility] [facility] [place], MAINTENANCE DEPARTMENT TECHNICIAN back pain without Therapy [address] sciatica (Primary Dx) [address] [facility] [place] [address] [address] [place] [address] [phone] Social History Tobacco Use Types Packs/Day Years Used Date Smoking Tobacco: Never Assessed Sex Assigned at Date Recorded Not on file documented as of this encounter Progress Notes Javi [place] StockjtBER[place] - 04/29/2018 9:15 AM CST Outpatient Physical Therapy Daily Treatment Note PATIENT: Sarah Doran : 1955PATIENT DATE OF SERVICE: 04/29/2018 PT Visit Number: 3 Time In/Out with intervention times: Treatment Times 04/29/2018 Start Time 8:54 AM Evaluation minutes - Therapeutic Exercise minutes 35 Cryotherapy / Cold Therapy minutes 10 Therapeutic Interventions Total minutes 45 Stop Time 9:45 AM Time Calculation (min) 51 Therapy Treatment Diagnosis: . 04/21/2018 Diagnoses: cervicalgia;disorders of soft tissue, unspecified;lumbago;other disorders of soft tissue;pain in joint;pain in spine Medical Diagnosis: . 04/21/2018 Diagnoses: Cervicalgia, Lumbago, OA, DDD SUBJECTIVE Sarah Doran is a 63 y.o. female here today for a physical therapy treatment. Sup visit with Andrés Darnell PT today. Pt states moderate pain remains present in lumbar region today. Pain: Pain Assessment 04/21/2018 04/29/2018 Pain y/n? yes yes Pain Rate Now (0-10) 7 5-6 Pain Rate Best (0-10) 5 - Pain Rate Worst (0-10) 10 - Frequency of Pain? constant - Pain Scoring Method Used Numeric Numeric OBJECTIVE Lumbar Exercises Double Knee [...] Exercise 10: seat side reach 10x ea Manual Therapy: Received MET with R ext and L flex 2 x 15. Modalities: Completed treatment today while supine with CP to lumbar region with L LE elevated to 90/90 position. ASSESSMENT The patient is progressing toward achievement [...] been electronically signed by Javi Damon PTA April 29, 2018 TEGIC BUYER Associated attestation - Andrés Darnell, PT - 04/29/2018 4:07 PM STRATEGIC BUYER I have reviewed the notes, assessments, and/or procedures performed by Javi Damon PTA, I concur with his documentation of Sarah Doran. documented in this encounter Plan of Treatment Not on filedocumented as of this encounter Visit Diagnoses Diagnosis Chronic bilateral low back pain without sciatica - Primary documented in this encounter
--- OUTSIDE RECORDS SUMMARY | 2022-02-01 20:32 | XMS_ITS | Encounter Summary ---
:1955 Author Organization [facility] Address [address] [facility].[place], [place], [address] [place] [address] Care Team Providers Name Role Phone Unavailable Primary Care Provider Unavailable Reason for Visit Reason Comments PT Treatment Physical Therapy (Routine) - Closed Specialty Diagnoses / Referred By Contact Referred To Contact Procedures Physical Therapy / Kasey Hassan Robbin J , PT Outpatient Rehabilitation MD [place] [address] [facility] [place], [place] [phone] Referral ID Status Reason Start Date Expiration Date Visits V isits Requested Authorized [id number] Closed Specialty 08/05/2020 11/01/2020 28 28 Services Required Encounter Details Date Type Department Care Team Description 09/11/2020 Treatment [facility] Andrés Darnell P T Periprosthetic fracture of hip, sequela; [facility] [address] History of right hip replacement; Physical Therapy [place] 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, subsequent encounter; [address] [facility] [address] Right hip pain; [place] Weakness of right hip; [address] Chronic bilateral low back p ain without sciatica [place] [address] Social History Tobacco Use [...] of this encounter Progress Notes Javi Damon, TRIMMING CASER - 09/11/2020 11:51 AM CDT Outpatient Physical Therapy Daily Treatment Note PATIENT: Sarah Doran : 1955PATIENT DATE OF SERVICE: 09/11/2020 PT Visit Number: 13 Time In/Out with intervention times: Treatment Times 09/11/2020 Start Time 9:50 AM Evaluation minutes - Therapeutic Exercise minutes 30 Manual Therapy minutes 10 Moist Heat minutes - Cryotherapy / Cold Therapy minutes 10 Rest minutes - Therapeutic Interventions Total minutes 50 Stop Time 10:45 AM Time Calculation (min) 55 Therapy Treatment Diagnosis: . 08/05/2020 Diagnoses: disorders of soft tissue, unspecified;muscle weakness (generalized);pain in joint;pain inlimb;spasm of muscle Medical Diagnosis: . 08/05/2020 Diagnoses: Periprosthetic fracture of proximal end of femur, Hx of R SAMIR, Failure of R SAMIR SUBJECTIVE Sarah Doran is a 65 y.o. female here today for a physical therapy treatment. Sup visit with Andrés Darnell PT. Pt states she had an appointment with her granite polisher machine on Wednesday. She reports he started her on lasix and changed her BP meds due to fluid build up. She reports that the upper part of my heart isn't pumping like it should. She is short of breath today and was instructed to take frequent rest breaks as needed. Pain: Pain Assessment 08/28/2020 08/30/2020 09/02/2020 09/04/2020 09/11/2020 Pain y/n? yes yes yes yes yes Pain Rate Now (0-10) 4 in R hip but dizzy 4 4 4 4 Pain Rate Best (0-10) - - - - - Pain Rate Worst (0-10) - - - - - Frequency of Pain? - - - - - Pain Scoring Method Used - Numeric Numeric Numeric Numeric OBJECTIVE Lumbar Exercises Exercise 1: Ramp S 2' Exercise 3: stdg HR 30 Exercise 3 Details: Nustep 10' Hip Exercises SLR Flexion With Hip ER : 30 SLR Flexion : 30 SLR Extension : 30 SLR Abduction : 30 Bridges: 30 Clamshells : 30 Heel Slides : pilates, tband abd 20x 5 ea Exercise 1: prone TKE x30 Exercise 3: windmill 20 Knee Exercises Heel Slides : pilates, tband abd 20x 5 ea Manual Therapy: Received DTM to R posterior hip/ piriformis region while prone. Received manual stretches to R hamstring and piriformis region while supine. Modalities: Completed treatment today with CP to R hip while in L sidely x 10 minutes. ASSESSMENT The patient is progressing toward achievement of goals as expected. Sarah Doran tolerated all therapeutic exercises during therapy session with no adverse effects noted this date. Temperature takenupon clinic entry & patient w/out fever. Appropriate PPE donned by PT/TRIMMING CASER & patient for PT interventions. Currently Established Goals: Short Term Physical Therapy Goals 08/05/2020 STG Time Frames 3wks STG #1 Decrease R hip pain 35% STG #2 I w/ HEP Propulsion Machinery Service Engineer Physical Therapy Goals 08/05/2020 LTG Time Frames 6wks LTG #1 Decrease R hip pain 75% LTG #2 WOMAC < 25% LTG #3 Improve community ambulation to 250 yards w/ appropriate AD PLAN Continue PT per established plan of care as patient tolerates. This report has been electronically signed by Javi Damon PTA September 11, 2020 Associated attestation - Andrés Darnell PT - 09/11/2020 12:17 PM CDT I have reviewed the notes, [...] region and thigh Weakness of right hip Chronic bilateral low back pain without sciatica documented in this encounter
--- OUTSIDE RECORDS SUMMARY | 2022-02-01 20:32 | XMS_ITS | Encounter Summary ---
:1955 Author Organization [facility] Address [address] [place], [place], [address] [place] [address] Care Team Providers Name Role Phone Unavailable Primary Care Provider Unavailable Reason for Visit Reason Comments PT Treatment Physical Therapy (Routine) - Closed Specialty Diagnoses / Referred By Contact Referred To Contact Procedures Physical Therapy / Kasey Hassan Robbin J, PT Outpatient Rehabilitation MD [place] [address] [facility] [place], [place] [phone] Referral ID Status Reason Start Date Expiration Date Visits V isits Requested Authorized [id number] Closed Specialty 08/05/2020 11/01/2020 28 28 Services Required Encounter Details Date Type Department Care Team Description 08/07/2020 Treatment [facility] Andrés Darnell P T Periprosthetic fracture of hip, sequela; [facility] [address] History of right hip replacement; Physical [place] 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, subsequent encounter; [address] [facility] [address] Right hip pain; [place] Weakness of right hip [address] [place] [...] encounter Progress Notes Andrés Darnell, PT - 08/07/2020 12:18 PM CDT Outpatient Physical Therapy Daily Treatment Note PATIENT: Sarah Doran : 1955PATIENT DATE OF SERVICE: 08/07/2020 PT Visit Number: 2 Time In/Out with intervention times: Treatment Times 08/07/2020 Start Time 10:26 AM Evaluation minutes - Therapeutic Exercise minutes 50 Manual Therapy minutes 15 Moist Heat minutes - Cryotherapy / Cold Therapy minutes - Rest minutes 15 Therapeutic Interventions Total minutes 80 Stop Time 11:47 AM Time Calculation (min) 81 Therapy Treatment Diagnosis: . 08/05/2020 Diagnoses: disorders of soft tissue, unspecified;muscle weakness (generalized);pain in joint;pain inlimb;spasm of muscle Medical Diagnosis: . 08/05/2020 Diagnoses: Periprosthetic fracture of proximal end of femur, Hx of R SAMIR, Failure of R SAMIR Temperature taken upon clinic entry & patient w/out fever. Appropriate PPE donned by PT/OCCUPATIONAL THERAPY DIRECTOR & patient for PT interventions. Supervisory visit w/ Javi Damon PTA. SUBJECTIVE Sarah Doran is a 65 y.o. female here today for a physical therapy treatment. Reports proximal R HS w/ mild pain/strain. I called the MD, but they haven't called me back. Pain: Pain Assessment 05/19/2018 05/23/2018 05/24/2018 08/05/2020 08/07/2020 Pain y/n? yes yes yes yes yes Pain Rate Now (0-10) 4 3 3 6-7 5-6 Pain Rate Best (0-10) - - - 4 - Pain Rate Worst (0-10) - - - 10 - Frequency of Pain? - - - constant - Pain Scoring Method Used Numeric - Numeric Numeric - OBJECTIVE Lumbar Exercises Exercise 1: Ramp S 2' Exercise 1 Details: stdg hip flex 20 Exercise 2: stdg hip abd 20 Exercise 3: stdg hip ext Exercise 3 Details: Nustep 8' Hip Exercises SLR Flexion With Hip ER : 30 SLR Flexion : 30 SLR Extension : 30 SLR Abduction : 30 Bridges: 30 Clamshells : 30 Heel Slides : pilates, tband abd 10x 5 ea Exercise 1: prone TKE 30 Exercise 2: seat hip flex 30 Exercise 2 Details: prone pilates ring IR 20 Exercise 3: windmill Exercise 3 Details: Knee Exercises Heel Slides : pilates, tband abd 10x 5 ea Prone knee flexion: 30 Manual Therapy: Rec'd R LE stretches to affect HS muscle spasm, supine. Rec'd roller stretches, DTM to proximal R HS, prone. Modalities: Comp'd w/ R hip CP, supine. ASSESSMENT The patient is progressing toward achievement of goals as expected. Sarah Doran tolerated all therapeutic exercises during therapy session with no adverse effects noted this date. Currently Established Goals: Short Term Physical Therapy Goals 08/05/2020 STG Time Frames 3wks STG #1 Decrease R hip pain 35% STG #2 I w/ HEP Retirement Physical Therapy Goals 08/05/2020 LTG Time Frames 6wks LTG #1 Decrease R hip pain 75% LTG #2 WOMAC < 25% LTG #3 Improve community ambulation to 250 yards w/ appropriate AD PLAN Continue PT per established plan of care as patient tolerates. 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
--- OUTSIDE RECORDS SUMMARY | 2022-02-01 20:32 | XMS_ITS | Encounter Summary ---
:1955 Author Organization [facility] Address [address] [facility], [place], [address] [place] [address] Care Team Providers Name Role Phone Unavailable Primary Care Provider Unavailable Encounter Details Date Type Department Care Team Description 04/19/2018 Travel Social History Tobacco Use Types Packs/Day Years Used Date Smoking Tobacco: Never Assessed Sex Assigned at Date Recorded Not on file documented as of this encounter Plan of Treatment Not on filedocumented as of this encounter Visit Diagnoses Not on filedocumented in this encounter
--- OUTSIDE RECORDS SUMMARY | 2022-02-01 20:32 | XMS_ITS | Encounter Summary ---
:1955 Author Organization [facility] Address [address] [place], [place], [address] [place] [address] Care Team Providers Name Role Phone Unavailable Primary Care Provider Unavailable Reason for Visit Reason Comments PT Treatment Physical Therapy (Routine) - Closed Specialty Diagnoses / Referred By Contact Referred To Contact Procedures Physical Therapy / Kasey Hassan Robbin J , PT Outpatient Rehabilitation MD [place] [address] [facility] [place], [place] [phone] Referral ID Status Reason Start Date Expiration Date Visits V isits Requested Authorized [id number] Closed Specialty 08/05/2020 11/01/2020 28 28 Services Required Encounter Details Date Type Department Care Team Description 08/13/[address] 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, subsequent encounter; [address] [facility] [address] Right hip pain; [place] Weakness of right hip [address] [place] [...] of this encounter Progress Notes Javi Damon, SIGNAL TESTER - 08/13/2020 12:01 PM CDT Outpatient Physical Therapy Daily Treatment Note PATIENT: Sarah Doran : 1955PATIENT DATE OF SERVICE: 08/13/2020 PT Visit Number: 4 Time In/Out with intervention times: Treatment Times 08/13/2020 Start Time 10:30 AM Evaluation minutes - Therapeutic Exercise minutes 50 Manual Therapy minutes - Moist Heat minutes - Cryotherapy / Cold Therapy minutes 10 Rest minutes - Therapeutic Interventions Total minutes 60 Stop Time 11:35 AM Time Calculation (min) 65 Therapy Treatment Diagnosis: . 08/05/2020 Diagnoses: disorders [...] Pt states mild-moderate soreness in R hip today. Pain: Pain Assessment 05/24/2018 08/05/2020 08/07/2020 08/09/2020 08/13/2020 Pain y/n? yes yes yes yes yes Pain Rate Now (0-10) 3 6-7 5-6 4-5 4-5 Pain Rate Best (0-10) - 4 - - - Pain Rate Worst (0-10) - 10 - - - Frequency of Pain? - constant - - - Pain Scoring Method Used Numeric Numeric - - Numeric OBJECTIVE Lumbar Exercises Abdominal Bracing: sgl [...] ea Exercise 1: prone TKE 30 Exercise 1 Details: TGym Dbl/Sgl x30ea Exercise 2: prone TKE 30 Exercise 2 Details: prone pilates ring IR 30 Exercise 3: windmill 30 Exercise 3 Details: SB bridges x 15 Knee Exercises Heel Slides : pilnicholas, tband abd 10x 5 ea Prone knee flexion: 30 Modalities: Completed treatment with CP to R hip while supine x 10 minutes. ASSESSMENT The patient is progressing toward achievement of goals as expected. Sarah Doran tolerated all therapeutic exercises during therapy session with no adverse effects noted this date. Temperature takenupon clinic entry & patient w/out fever. Appropriate PPE donned by PT/SIGNAL TESTER & patient for PT interventions. Currently Established Goals: Short Term Physical Therapy Goals 08/05/2020 STG Time Frames 3wks STG #1 Decrease R hip pain 35% STG #2 I w/ HEP Theatrical Variety Agent Physical Therapy Goals 08/05/2020 LTG Time Frames 6wks LTG #1 Decrease R hip pain 75% LTG #2 WOMAC < 25% LTG #3 Improve community ambulation to 250 yards w/ appropriate AD PLAN Continue PT per established plan of care as patient tolerates. This report has been electronically signed by Javi Damon PTA August 13, 2020 Associated attestation - Andrés Darnell PT - 08/13/2020 2:29 PM CDT I have reviewed the notes, assessments, and/or procedures performed by Javi Damon PTA, I concur with his documentation of Sarah Navasiss. 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
--- OUTSIDE RECORDS SUMMARY | 2022-02-01 20:32 | XMS_ITS | Encounter Summary ---
:1955 Author Organization [facility] Address [address] [place], [place], [address] [place] [address] Care Team Providers Name Role Phone Unavailable Primary Care Provider Unavailable Reason for Visit Reason Comments PT Treatment Physical Therapy (Routine) - Closed Specialty Diagnoses / Referred By Contact Referred To Contact Procedures Physical Therapy / Kasey Hassan Robbin J , PT Outpatient Rehabilitation MD [place] [address] [facility] [place], [place], [place] [phone] Referral ID Status Reason Start Date Expiration Date Visits V isits Requested Authorized [id number] Closed Specialty 08/05/2020 11/01/2020 28 28 Services Required Encounter Details Date Type Department Care Team Description 09/20/2020 Treatment [facility] Periprosthe tic fracture of hip, sequela; [facility] [facility] [place], HEEL BUFFER History of right hip replacement; Therapy [address] 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, subsequent encounter; [address] [facility] [address] Right hip pain; [address] [place], [place] Weakness of right hip [place] [address] [phone] Social History Tobacco Use Types Packs/Day Years [...] encounter Progress Notes Andrés Darnell, PT - 09/20/2020 2:59 PM CDT Outpatient Physical Therapy Daily Treatment Note PATIENT: Sarah Doran : 1955PATIENT DATE OF SERVICE: 09/20/2020 PT Visit Number: 16 Time In/Out with intervention times: Treatment Times 09/20/2020 Start Time 1:26 PM Evaluation minutes - Therapeutic Exercise minutes 35 Manual Therapy minutes 12 Moist Heat minutes - Cryotherapy / Cold Therapy minutes 10 Rest minutes - Therapeutic Interventions Total minutes 57 Stop Time 2:34 PM Time Calculation (min) 68 Therapy Treatment Diagnosis: . 08/05/2020 Diagnoses: disorders of soft tissue, unspecified;muscle weakness (generalized);pain in joint;pain inlimb;spasm of muscle Medical Diagnosis: . 08/05/2020 Diagnoses: Periprosthetic fracture of proximal end of femur, Hx of R SAMIR, Failure of R SAMIR Temperature taken upon clinic entry & patient w/out fever. Appropriate PPE donned by PT/HEEL BUFFER & patient for PT interventions. Supervisory visit w/ Javi Damon PTA. SUBJECTIVE Sarah Doran is a 65 y.o. female here today for a physical therapy treatment. Breathing & moving so much better now that new heart med & diuretics are working. Walked independently to clinic from car, w/out AD. Pain: Pain Assessment 09/04/2020 09/11/2020 09/13/2020 09/18/2020 09/20/2020 Pain y/n? yes yes yes yes yes Pain Rate Now (0-10) 4 4 3 3 3 Pain Rate Best (0-10) - - - - - Pain Rate Worst (0-10) - - - - - Frequency of Pain? - - - - - Pain Scoring Method Used Numeric Numeric Numeric - - OBJECTIVE Lumbar Exercises Exercise 1: Ramp [...] 30 Clamshells : 30 Heel Slides : 30 Exercise 1: prone TKE x30 Exercise 2: SL reverse CS AA x 20 Exercise 2 Details: LAQ x 30 Exercise 3: windmill 20 Exercise 3 Details: bridges x 30 Knee Exercises Heel Slides : 30 Prone knee flexion: 30 Manual Therapy: Rec'd R hamstring & piriformis manual stretches f/by DTM, trigger pt release to R piriformis. Modalities: Rec'd CP to R hip/lateral thigh region, sidely. ASSESSMENT The patient is progressing toward achievement of goals as expected. WOMAC improved from 45% to 33%..Sarah Doran tolerated all therapeutic exercises during therapy session with no adverse effects noted this date. Currently Established Goals: Short Term Physical Therapy Goals 08/05/2020 STG Time Frames 3wks STG #1 Decrease R hip pain 35% STG #2 I w/ HEP Intermediate Physical Therapy Goals 08/05/2020 LTG Time Frames 6wks LTG #1 Decrease R hip pain 75% LTG #2 WOMAC < 25% LTG #3 Improve community ambulation to 250 yards w/ appropriate AD PLAN Continue PT per established plan of care as patient tolerates. New POC sent to MD for PT extension to enhance functional outcomes of functional mobility, safety, strength & stability. This report has been electronically signed by Andrés Darnell PT September 20, 2020 documented in this encounter Plan of Treatment Not on filedocumented as of this encounter Visit Diagnoses Diagnosis Periprosthetic fracture of hip, sequela History of right hip replacement Failure of right total hip arthroplasty, subsequent encounter Right hip pain Pain in joint, pelvic region and thigh Weakness of right hip documented in this encounter
--- OUTSIDE RECORDS SUMMARY | 2022-02-01 20:32 | XMS_ITS | Encounter Summary ---
:1955 Author Organization [facility] Address [address] [place], [place], [address] [place] [address] Care Team Providers Name Role Phone Unavailable Primary Care Provider Unavailable Encounter Details Date Type Department Care Team Description 09/04/2020 Travel Social History Tobacco Use Types Packs/Day [...]
--- OUTSIDE RECORDS SUMMARY | 2022-02-01 20:32 | XMS_ITS | Encounter Summary ---
:1955 Author Organization [facility] Address [address] [place], [place], [address] [place] [address] Care Team Providers Name Role Phone Unavailable Primary Care Provider Unavailable Reason for Visit Reason Comments PT Treatment Physical Therapy (Routine) - Closed Specialty Diagnoses / Referred By Contact Referred To Contact Procedures Physical Therapy / Kasey Hassan Robbin J , PT Outpatient Rehabilitation MD [place] [address] [facility] [place], [place], [phone] Referral ID Status Reason Start Date Expiration Date Visits V isits Requested Authorized [id number] Closed Specialty 08/05/2020 11/01/2020 28 28 Services Required Encounter Details Date Type Department Care Team Description 09/02/2020 Treatment [facility] Carre[facility] Periprosthe tic fracture of hip, sequela; [facility] [facility] [place], VP ACCOUNT DIRECTOR History of right hip replacement; Therapy [address] 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 documented as of this encounter Progress Notes Misbah Walker, VP ACCOUNT DIRECTOR - 09/02/2020 11:38 AM CDT Outpatient Physical Therapy Daily Treatment Note PATIENT: Sarah Doran : 1955PATIENT DATE OF SERVICE: 09/02/2020 PT Visit Number: 10 This visit was supervised by Andrés Darnell DPT Time In/Out with intervention times: Treatment Times 09/02/2020 Start Time 10:00 AM Evaluation minutes - Therapeutic Exercise minutes 45 Manual Therapy minutes - Moist Heat minutes - Cryotherapy / Cold Therapy minutes 10 Rest minutes - Therapeutic Interventions Total minutes 55 Stop Time 11:03 AM Time Calculation (min) 63 Therapy Treatment Diagnosis: . 08/05/2020 Diagnoses: disorders of soft tissue, unspecified;muscle weakness (generalized);pain in joint;pain inlimb;spasm of muscle Medical Diagnosis: . 08/05/2020 Diagnoses: Periprosthetic fracture of proximal end of femur, Hx of R SAMIR, Failure of R SAMIR SUBJECTIVE Sarah Doran is a 65 y.o. female here today for a physical therapy treatment. Patient states she continues to have pain in her R hip, she adds she feels she is progressing and was able to ambulate greater distances this past weekend. Pain: Pain Assessment 08/21/2020 08/23/2020 08/28/2020 08/30/2020 09/02/2020 Pain y/n? yes yes yes yes yes Pain Rate Now (0-10) 5 5 4 in R hip but dizzy 4 4 Pain Rate Best (0-10) - - - - - Pain Rate Worst (0-10) - - - - - Frequency of Pain? - - - - - Pain Scoring Method Used Numeric Numeric - Numeric Numeric OBJECTIVE Lumbar Exercises Exercise 1: Ramp S 2' Exercise 1 Details: stdg hip flex 30 Exercise 2: stdg hip flex 30 Exercise 2 Details: stdg hip ext 30 Exercise 3: stdg HR 30 Exercise 3 Details: Nustep 10' Hip Exercises SLR Flexion With Hip ER : 20 SLR Flexion : 20 SLR Extension : 20 SLR Abduction : 20 Bridges: 20 Clamshells : 20 Exercise 3: windmill 20 Knee Exercises Prone knee flexion: 20 Modalities: Completed treatment today with CP to R hip while in L sidely x 10 minutes. ASSESSMENT The patient is progressing toward achievement of goals as expected. Sarah Doran tolerated all therapeutic exercises during therapy session with no adverse effects noted this date. Temperature takenupon clinic entry & patient w/out fever. Appropriate PPE donned by PT/VP ACCOUNT DIRECTOR & patient for PT interventions. Currently Established Goals: Short Term Physical Therapy Goals 08/05/2020 STG Time Frames 3wks STG #1 Decrease R hip pain 35% STG #2 I w/ HEP Bank Teller Physical Therapy Goals 08/05/2020 LTG Time Frames 6wks LTG #1 Decrease R hip pain 75% LTG #2 WOMAC < 25% LTG #3 Improve community ambulation to 250 yards w/ appropriate AD PLAN Continue PT per established plan of care as patient tolerates. This report has been electronically signed by Misbah Walker PTA September 02, 2020 Associated attestation - Andrés Darnell PT - 09/02/2020 7:29 PM CDT I have reviewed the notes, [...]
--- OUTSIDE RECORDS SUMMARY | 2022-02-01 20:32 | XMS_ITS | Clinical Summary ---
:1955 Author Organization [facility] Address [address] [facility], [place], [address] [place] [address] Care Team Providers Name Role Phone Unavailable Primary Care Provider Unavailable Social History Tobacco Use Types Packs/Day Years Used Date Smoking Tobacco: Never Assessed Sex Assigned at Date Recorded Not on file Plan of Treatment Health Maintenance Due Date Last Done Comments Annual Depression Screening 1967 Hepatitis C Antibody Screen 1974 Mammogram 1996 Colorectal CA Screening Colonoscopy 2001 Pneumococcal Vaccine 23-Valent Age 65 and 04/15/20212019, 02/18/2005 Older (2 - PCV) Bone Density 2021 Influenza Vaccine 01/01/2022 01/05/2019, 02/17/2017 Insurance Payer Benefit Plan / Subscriber ID Effective Dates Phone Addre ss Type Group BLUE CROSS BLUE CROSS [id number] 2013-Prese [facility] [address] [place] [address] MEDICARE MEDICARE PART [id number] 2015-[place] [phone] [address] [id number] A AND B nt 1 FABIANA CAREY [id number]
--- OUTSIDE RECORDS SUMMARY | 2022-02-01 20:32 | XMS_ITS | Encounter Summary ---
:1955 Author Organization [facility] Address [address], [place], [address] [place] [address] Care Team Providers Name Role Phone Unavailable Primary Care Provider Unavailable Encounter Details Date Type Department Care Team Description 08/09/2020 Travel Social History Tobacco Use Types Packs/Day [...]
--- OUTSIDE RECORDS SUMMARY | 2022-02-01 20:32 | XMS_ITS | Encounter Summary ---
:1955 Author Organization [facility] Address [address], [place], [address] [place] [address] Care Team Providers Name Role Phone Unavailable Primary Care Provider Unavailable Reason for Visit Reason Comments PT Treatment Physical Therapy (Routine) - Closed Specialty Diagnoses / Referred By Contact Referred To Contact Procedures Physical Therapy / Kasey Hassan Robbin J, PT Outpatient Rehabilitation MD [place] [address] [facility] [place], [place] [phone] Referral ID Status Reason Start Date Expiration Date Visits V isits Requested Authorized [id number] Closed Specialty 08/05/2020 11/01/2020 28 28 Services Required Encounter Details Date Type Department Care Team Description 09/18/2020 Treatment [facility] Andrés Darnell P T Periprosthetic fracture of hip, sequela; [facility] [address] History of right hip replacement; [place] 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, subsequent encounter; [address] [facility] [address] Right hip pain; [place] Weakness of right hip [address] [place] [...] encounter Progress Notes Andrés Darnell, PT - 09/18/2020 4:19 PM CDT Outpatient Physical Therapy Daily Treatment Note PATIENT: Sarah Doran : 1955PATIENT DATE OF SERVICE: 09/18/2020 PT Visit Number: 15 Time In/Out with intervention times: Treatment Times 09/18/2020 Start Time 1:21 PM Evaluation minutes - Therapeutic Exercise minutes 35 Manual Therapy minutes 12 Moist Heat minutes - Cryotherapy / Cold Therapy minutes 10 Rest minutes - Therapeutic Interventions Total minutes 57 Stop Time 2:26 PM Time Calculation (min) 65 Therapy Treatment Diagnosis: . 08/05/2020 Diagnoses: disorders of soft tissue, unspecified;muscle weakness (generalized);pain in joint;pain inlimb;spasm of muscle Medical Diagnosis: . 08/05/2020 Diagnoses: Periprosthetic fracture of proximal end of femur, Hx of R SAMIR, Failure of R SAMIR Temperature taken upon clinic entry & patient w/out fever. Appropriate PPE donned by PT/SIDE PIECE COVERER & patient for PT interventions. Supervisory visit w/ Javi Damon PTA. SUBJECTIVE Sarah Doran is a 65 y.o. female here today for a physical therapy treatment. Reports feeling somuch better now that the heart meds & diuretics are working better. I can breathe better & actually move better. Pain: Pain Assessment 09/02/2020 09/04/2020 09/11/2020 09/13/2020 09/18/2020 Pain y/n? yes yes yes yes yes Pain Rate Now (0-10) 4 4 4 3 3 Pain Rate Best (0-10) - - - - - Pain Rate Worst (0-10) - - - - - Frequency of Pain? - - - - - Pain Scoring Method Used Numeric Numeric Numeric Numeric - OBJECTIVE Lumbar Exercises Exercise [...] knee flexion: 30 Manual Therapy: Rec'd manual stretches to R hamstring, piriformis, along w/ DTM, trigger pt release to R piriformis. Modalities: Rec'd CP to R hip, in L sidely. ASSESSMENT The patient is progressing toward achievement of goals as expected. Sarah Doran tolerated all therapeutic exercises during therapy session with no adverse effects noted this date. Currently Established Goals: Short Term Physical Therapy Goals 08/05/2020 STG Time Frames 3wks STG #1 Decrease R hip pain 35% STG #2 I w/ HEP Residential Physical Therapy Goals 08/05/2020 LTG Time Frames 6wks LTG #1 Decrease R hip pain 75% LTG #2 WOMAC < 25% LTG #3 Improve community ambulation to 250 yards w/ appropriate AD PLAN Continue PT per established plan of care as patient tolerates. 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
--- OUTSIDE RECORDS SUMMARY | 2022-02-01 20:32 | XMS_ITS | Encounter Summary ---
:1955 Author Organization [facility] Address [address] [facility], [place], [address] [place] [address] Care Team Providers Name Role Phone Unavailable Primary Care Provider Unavailable Reason for Referral Physical Therapy (Routine) - Closed Specialty Diagnoses / Referred By Contact Referred To Contact Procedures Physical Therapy / Vamsi Avalos Robbin J , PT Outpatient Rehabilitation MD [place] [address] [place], [place] [phone] Referral ID Status Reason Start Date Expiration Date Visits V isits Requested Authorized [id number] Closed Specialty 04/20/2018 06/01/2018 1 1 Services Required Comments Physical Therapy Referral Order Patient: Sarah Doran Date: 04/19/2018 Treatment Diagnosis: cervicalgia Frequency: 3x week Duration: 4 weeks Therapy Services Ordered: PT Adult Evaluate and Treatment Precautions/Restrictions: None RT FREIGHT CLERK Encounter Details Date Type Department Care Team Description 04/19/2018 Orders Only [facility] Vamsi Avalos MD [facility] Physical [address] [place] [address] [place] [address] [address] [place] [address] Social History Tobacco Use Types Packs/Day Years Used Date Smoking Tobacco: Never Assessed Sex Assigned at Date Recorded Not on file documented as of this encounter Plan of Treatment Scheduled Referrals Name Type Priority Associated Order Schedule Diagnoses Referral to PT (use Outpatient Referral Routine O rdered: only for transcribing 2017 outside orders) documented as of this encounter Visit Diagnoses Not on filedocumented in this encounter
--- OUTSIDE RECORDS SUMMARY | 2022-02-01 20:32 | XMS_ITS | Encounter Summary ---
:1955 Author Organization [facility] Address [address] [place], [place], [address] [place] [address] Care Team Providers Name Role Phone Unavailable Primary Care Provider Unavailable Reason for Visit Reason Comments PT Treatment Physical Medicine (Routine) - Closed Specialty Diagnoses / Referred By Contact Referred To Contact Procedures Physical Therapy / Procedures Vamsi Avalos, Andrés Garg, PT Outpatient Rehabilitation Physical Therapy MD David [address] Evaluation - Plan of [address] [place], [place] [facility] [place], [phone] Referral ID Status Reason Start Date Expiration Date Visits Requ ested Visits Authorized [id number] Closed 04/21/2018 05/27/2018 11 11 Encounter Details Date Type Department Care Team Description 05/24/2018 Treatment [facility] Javi Mcgowan Chronic kendra ateral low [facility] PTA back pain without Therapy [address] sciatica (Primary Dx) [address] [facility] [place] [address] [address] [place] [address] [phone] Social History Tobacco Use Types Packs/Day Years Used Date Smoking Tobacco: Never Assessed Sex Assigned at Date Recorded Not on file documented as of this encounter Progress Notes Javi Damon PTA - 05/24/2018 10:15 AM CST Outpatient Physical Therapy Daily Treatment Note PATIENT: Sarah Doran : 1955PATIENT DATE OF SERVICE: 05/24/2018 PT Visit Number: 10 Time In/Out with intervention times: Treatment Times 05/24/2018 Start Time 9:50 AM Evaluation minutes - Therapeutic Exercise minutes 35 Manual Therapy minutes 10 Moist Heat minutes - Cryotherapy / Cold Therapy minutes 10 Therapeutic Interventions Total minutes 55 Stop Time 10:45 AM Time Calculation (min) 55 Therapy Treatment Diagnosis: . 04/21/2018 Diagnoses: cervicalgia;disorders of soft tissue, unspecified;lumbago;other disorders of soft tissue;pain in joint;pain in spine Medical Diagnosis: . 04/21/2018 Diagnoses: Cervicalgia, Lumbago, OA, DDD SUBJECTIVE Sarah Doran is a 63 y.o. female here today for a physical therapy treatment. Sup visit with Andrés Darnell, PT today. Pt states good response from previous treatment. Pain: Pain Assessment 05/16/2018 05/18/2018 05/19/2018 05/23/2018 05/24/2018 Pain y/n? yes yes yes yes yes Pain Rate Now (0-10) 4 4 4 3 3 Pain Rate Best (0-10) - - - - - Pain Rate Worst (0-10) - - - - - Frequency of Pain? - - - - - Pain Scoring Method Used Numeric Numeric Numeric - Numeric OBJECTIVE Lumbar Exercises Double Knee To [...] shoulder shrugs x 30 Manual Therapy: Received manual MFR/DTM to bilateral cervical regions while seated. Modalities: Completed treatment today with CP to cervical and lumbar regions while supine with L LE elevated to 90/90 and R LE flat on mat x 10 minutes. ASSESSMENT The patient is [...] electronically signed by Javi Damon PTA May 24, 2018 CE OR PATROL PARK OFFICER Associated attestation - Andrés Darnell, PT - 05/24/2018 12:53 PM POLICE OR [employer] PARK OFFICER I have reviewed the notes, assessments, and/or procedures performed by Javi Damon PTA, I concur with his documentation of Sarah Doran. documented in this encounter Plan of Treatment Not on filedocumented as of this encounter Visit Diagnoses Diagnosis Chronic bilateral low back pain without sciatica - Primary documented in this encounter
--- OUTSIDE RECORDS SUMMARY | 2022-02-01 20:32 | XMS_ITS | Encounter Summary ---
:1955 Author Organization [facility] Address [address], [place], [address] [place] [address] Care Team Providers Name Role Phone Unavailable Primary Care Provider Unavailable Encounter Details Date Type Department Care Team Description 10/08/2020 Travel Social History Tobacco Use Types Packs/Day [...]
--- OUTSIDE RECORDS SUMMARY | 2022-02-01 20:32 | XMS_ITS | Encounter Summary ---
:1955 Author Organization [facility] Address [address] [facility], [address] [place] [address] Care Team Providers Name Role Phone Unavailable Primary Care Provider Unavailable Reason for Visit Reason Comments PT Initial Evaluation Physical Therapy (Routine) - Closed Specialty Diagnoses / Referred By Contact Referred To Contact Procedures Physical Therapy / Kasey Hassan Robbin J , PT Outpatient Rehabilitation MD [place] [address] [facility] [place], [place] [phone] Referral ID Status Reason Start Date Expiration Date Visits V isits Requested Authorized [id number] Closed Specialty 08/05/2020 11/01/2020 28 28 Services Required Encounter Details Date Type Department Care Team Description 08/05/2020 Evaluation [facility] Andrés Darnell P T Periprosthetic fracture of hip, sequela; [facility] [address] [place] [address] History of right hip replacement; [place] 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, subsequent encounter; [address] [facility] [address] Right hip pain; [place] [phone] Weakness of right hip [address] (Work) [place] [address] Social [...] encounter Progress Notes Andrés Darnell, PT - 08/05/2020 11:40 AM CDT Outpatient Physical Therapy Evaluation / Plan of Care PATIENT: Sarah Doran : 1955 DATE OF SERVICE: 08/05/2020 DIAGNOSES Therapy Treatment Diagnoses: disorders of soft tissue, unspecified, muscle weakness (generalized), pain in joint, pain in limb, spasm of muscle Medical Diagnosis: Periprosthetic fracture of proximal end of femur, Hx of R SAMIR, Failure of R SAMIR Temperature taken upon clinic entry & patient w/out fever. Appropriate PPE donned by PT/ENGINE BOSS & patient for PT interventions. Supervisory visit w/ Javi Damon PTA. HISTORY Sarah Doran is a 65 y.o. female here today for a physical therapy evaluation. She presents with R hip pain after 3 R hip surgeries in 2019. Initial surgery was due to longstanding OA & was 06/14/19; had HHPT. She fell at home in August 2019, breaking the femur & underwent 2nd surgery 08/21/2019 & cables were place around the prosthesis; went to inpt rehab x 5.5 weeks. F/up w/ ortho Feb 2020, Xrays revealed cables were broken, broken leg. Pt referred to [facility] trauma/oncology orthospecialist & underwent 3rd surgery 04/15/20. She went to inpt rehab x 5 wks & has had HHPT until discharge, 2 wks ago. May 2020 surgeon f/up Xray revealed 1. ??Postoperative changes of right hip arthroplasty without interval hardware complication identified.?? 2. ??Nonspecific soft tissue swelling throughout the right hip and included thigh.?? Symptoms of R hip pain are aggravated by exercise, fatigue, walking, standing, ADLs and alleviated by rest. Pt is aware of needing to increase strength & endurance for stability & functional ADLs. Pt reports my R leg is longer now because of the hip replacement; they said in 6-9 months I may get a lift, after all the muscles are engaged. Pain: Pain Assessment 08/05/2020 Pain y/n? yes Pain Rate Now (0-10) 6-7 Pain Rate Best (0-10) 4 Pain Rate Worst (0-10) 10 Frequency of Pain? constant Pain Scoring Method Used Numeric Medical History: history of breast cancer, OA, depression, DM, CAD, HTN, high cholesterol, CHF, obesity The following medical/functional factors are relevant to the plan of care: acuity/chronicity, comorbidities, previous level of function. The following personal factors are relevant to the plan of care: anxiety/depression, behavioral patterns, coping skills, exercise habits, past/current experience, readiness for change. 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 The following participation restrictions are relevant to the plan of care: community participation, family roles, interpersonal interactions, life situations, sports/hobbies, work/yazidi, relationships/social life. Palpation/Joint Mobility/Soft Tissue Mob: moderate restriction and moderate tenderness in R hip mobility Range of motion: R hip flex 30, abd 10, ext 0, ER 15, IR 7, knee ext -15/0, knee flex 110, DF 3/8, PF 50 L hip flex 45, abd 15, ext 5, ER 25, IR 28, knee ext -8/10, knee flex 113, DF 8/12, PF 50. Manual muscle testing: R hip flex 4-/5, abd 4-/5, ext 3+/5, ER 3/5, IR 3/5, knee ext 4/5, flex 4+/5,DF 4/5, PF 4+/5 L hip flex 4+/5, abd 4/5, ext 4/5, ER 4/5, IR 4/5, knee ext 4+/5, flex 5/5, DF 4+/5, PF 5/5 Mobility; independent w/ transfers Gait: using w large base quad cane for outside the home, not using it in my house. Cautious, decreased heide, step & stride, poor heel strike. Balance: seated N, standing static F +, dynamic F Sensory: WNL CLINICAL PRESENTATION Sarah Doran presents with a(n) stable/uncomplicated clinical presentation based on the followingphysiologic responses maturation Patient would likely benefit from further PT secondary to deficits in ROM, strength, pain, soft tissue mobility, endurance, gait, balance and functional abilities Other factors limiting therapy are current medical status and sedentary lifestyle CLINICAL DECISION MAKING This evaluation is a low complexity because there are 1-2 history elements, 3 examination elements, and the clinical presentation is stable. The plan of care is supported by the following standardized patient assessment instrument(s): WOMAC The standardized patient instrument score is 60%. GOALS Short Term Physical Therapy Goals 08/05/2020 STG Time Frames 3wks STG #1 Decrease R hip pain 35% STG #2 I w/ HEP Fdc Physical Therapy Goals 08/05/2020 LTG Time Frames 6wks LTG #1 Decrease R hip pain 75% LTG #2 WOMAC < 25% LTG #3 Improve community ambulation to 250 yards w/ appropriate AD Patient has good rehab potential for the above stated goals based on current progress and motivation. PLAN Plan of Care: Initial evaluation completed today. Therapist will assess patient progress once treatment plan is initiated. Frequency/Duration: 3x week for 6 weeks, POC through September 20, 2020. Interventions: Therapeutic exercise, Gait training, Estim attended, Estim unattended, Manual therapy, Thermal modalities COMMENTS/TREATMENT TODAY Time In/Out with intervention times: Treatment Times 08/05/2020 Start Time 10:15 AM Evaluation minutes 20 Therapeutic Exercise minutes 20 Manual Therapy minutes 10 Moist Heat minutes - Cryotherapy / Cold Therapy minutes 10 Therapeutic Interventions Total minutes 60 Stop Time 11:25 AM Time Calculation (min) 70 Lumbar Exercises Abdominal Bracing: sgl leg tbl top 3x 10ea/B Exercise 1: Ramp S 2' Exercise 1 Details: stdg hip flex 20 Exercise 2: stdg hip abd 10 Exercise 2 Details: stdg hip ext Exercise 3: stdg HR 20 Exercise 3 Details: Nustep Hip Exercises SLR Flexion With Hip ER : 20 SLR Flexion : 20 SLR Extension : 20 SLR Abduction : 20 Bridges: 10 Clamshells : 20 Heel Slides : abd/add 20 Exercise 1: prone TKE 20 Exercise 1 Details: TGym Dbl/Sgl Knee Exercises Heel Slides : abd/add 20 Prone knee flexion: 20 Manual: Rec'd manual stretches to B hamstring, adductors, supine. Modalities: Comp'd w/ R hip CP, supine. Findings and plan of care have been reviewed with patient/caregiver with opportunities for questions/answers. Pt experienced mild hamstring spasms during therex; pt somewhat alarmed 2* past history butpt ed provided re: slow progression of tasks to improve endurance, stability & strength. 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
--- OUTSIDE RECORDS SUMMARY | 2022-02-01 20:32 | XMS_ITS | Encounter Summary ---
:1955 Author Organization [facility] Address [address], [place], [address] [place] [address] Care Team Providers Name Role Phone Unavailable Primary Care Provider Unavailable Reason for Visit Reason Comments PT Treatment Physical Therapy (Routine) - Closed Specialty Diagnoses / Referred By Contact Referred To Contact Procedures Physical Therapy / Kasey Hassan Robbin J , PT Outpatient Rehabilitation MD [place] [address] 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, subsequent encounter; [address] [facility] [address] Right hip pain; [place] Weakness of right hip [address] [place] [...] of this encounter Progress Notes Javi Damon, CAREER AND TRANSITION TEACHER - 09/13/2020 12:34 PM CDT Outpatient Physical Therapy Daily Treatment Note PATIENT: Sarah Doran : 1955PATIENT DATE OF SERVICE: 09/13/2020 PT Visit Number: 14 Time In/Out with intervention times: Treatment Times 09/13/2020 Start Time 9:51 AM Evaluation minutes - Therapeutic Exercise minutes 30 Manual Therapy minutes 10 Moist Heat minutes - Cryotherapy / Cold Therapy minutes 10 Rest minutes - Therapeutic Interventions Total minutes 50 Stop Time 10:45 AM Time Calculation (min) 54 Therapy Treatment Diagnosis: . 08/05/2020 Diagnoses: disorders of soft tissue, unspecified;muscle weakness (generalized);pain in joint;pain inlimb;spasm of muscle Medical Diagnosis: . 08/05/2020 Diagnoses: Periprosthetic fracture of proximal end of femur, Hx of R SAMIR, Failure of R SAMIR SUBJECTIVE Sarah Doran is a 65 y.o. female here today for a physical therapy treatment. Sup visit with Andrés Darnell PT. Pt notes mild soreness remains present in R hip today. Pain: Pain Assessment 08/30/2020 09/02/2020 09/04/2020 09/11/2020 09/13/2020 Pain y/n? yes yes yes yes yes [...] 20x 5 ea Prone knee flexion: 30 Manual Therapy: Received manual stretches to R LE while supine : hamstrings, piriformis, glutes. Received DTM to R piriformis region while in prone. Modalities: Completed treatment today with CP to R hip while in L sidely x 10 minutes. ASSESSMENT The patient is progressing toward achievement of goals as expected. Sarah Doran tolerated all therapeutic exercises during therapy session with no adverse effects noted this date. Temperature takenupon clinic entry & patient w/out fever. Appropriate PPE donned by PT/CAREER AND TRANSITION TEACHER & patient for PT interventions. Currently Established Goals: Short Term Physical Therapy Goals 04/21/2018 08/05/2020 STG Time Frames 4wks 3wks STG #1 Decrease neck pain 80%, back pain 65% Decrease R hip pain 35% STG #2 Oswestry score improved to 35% I w/ HEP Furniture Finisher Physical Therapy Goals 08/05/2020 LTG Time Frames 6wks LTG #1 Decrease R hip pain 75% LTG #2 WOMAC < 25% LTG #3 Improve community ambulation to 250 yards w/ appropriate AD PLAN Continue PT per established plan of care as patient tolerates. This report has been electronically signed by Javi Damon PTA September 13, 2020 Associated attestation - Andrés Darnell PT - 09/13/2020 2:37 PM CDT I have reviewed the notes, [...]
--- OUTSIDE RECORDS SUMMARY | 2022-02-01 20:32 | XMS_ITS | Encounter Summary ---
:1955 Author Organization [facility] Address [address] [place], [place], [address] [place] [address] Care Team Providers Name Role Phone Unavailable Primary Care Provider Unavailable Reason for Visit Reason Comments PT Treatment Physical Therapy (Routine) - Closed Specialty Diagnoses / Referred By Contact Referred To Contact Procedures Physical Therapy / Kasey Hassan Robbin J , PT Outpatient Rehabilitation MD Leatha [address] [facility] [place], [place], [phone] Referral ID Status Reason Start Date Expiration Date Visits V isits Requested Authorized [id number] Closed Specialty 08/05/2020 11/01/2020 28 Services Required Encounter Details Date Type Department Care Team Description 08/28/2020 Treatment [facility] Javi Mcgowan Periprosthe tic fracture of hip, sequela; [facility] [facility] [place], 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 ATTENDANT History of right hip replacement; Therapy [address] 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, subsequent encounter; [address] [facility] [address] Right hip pain [address] [place] [address] [phone] Social History Tobacco Use Types Packs/Day Years [...] encounter Progress Notes Andrés Darnell, PT - 08/28/2020 12:26 PM CDT Outpatient Physical Therapy Daily Treatment Note PATIENT: Sarah Doran : 1955PATIENT DATE OF SERVICE: 08/28/2020 PT Visit Number: Time In/Out with intervention times: Treatment Times 08/28/2020 Start Time 10:25 AM Evaluation minutes - Therapeutic Exercise minutes 30 Manual Therapy minutes 30 Moist Heat minutes - Cryotherapy / Cold Therapy minutes - Rest minutes - Therapeutic Interventions Total minutes 60 Stop Time 11:37 AM Time Calculation (min) 72 Therapy Treatment Diagnosis: . 08/05/2020 Diagnoses: disorders of soft tissue, unspecified;muscle weakness (generalized);pain in joint;pain inlimb;spasm of muscle Medical Diagnosis: . 08/05/2020 Diagnoses: Periprosthetic fracture of proximal end of femur, Hx of R SAMIR, Failure of R SAMIR Temperature taken upon clinic entry & patient w/out fever. Appropriate PPE donned by PT/STATION ATTENDANT & patient for PT interventions. Supervisory visit w/ Javi Damon PTA. SUBJECTIVE Sarah Doran is a 65 y.o. female here today for a physical therapy treatment. Reports R hip w/ sustained improvement but dizziness has really been a bother since last week. I didn't come on Wednesday because of the dizziness & even on last Wednesday, I had my daughter bring me. I saw the MD this AM& she wanted me to watch a video on another MD's website, so I'll do that when I get home. Pt ed provided re: Cassandra maneuver & she agreed for PT to perform on her. Pain: Pain Assessment 08/15/2020 08/19/2020 08/21/2020 08/23/2020 08/28/2020 Pain y/n? yes yes yes yes yes Pain Rate Now (0-10) 5 5 5 5 4 in R hip but dizzy Pain Rate Best (0-10) - - - - - Pain Rate Worst (0-10) - - - - - Frequency of Pain? - - - - - Pain Scoring Method Used - Numeric Numeric Numeric - OBJECTIVE Lumbar Exercises Exercise 1: Ramp S 2' Exercise 1 Details: stdg hip flex 30 Exercise 2: stdg hip abd 30 Exercise 2 Details: stdg hip ext 30 Exercise 3: stdg HR 30 Exercise 3 Details: Nustep 10' Hip Exercises Exercise 3: windmill 20 Manual Therapy: Rec'd R Cassandra maneuver x 2, L Cassandra maneuver x 3. Modalities: Deferred CP to R hip. ASSESSMENT The patient is progressing toward achievement of goals as expected; WOMAC improved from 60 to 45%. Dizziness is primary concern today & we will monitor results. L Cassandra seemingly more effective. Sarah Doran tolerated all therapeutic exercises during therapy session with no adverse effects noted this date. Currently Established Goals: Short Term Physical Therapy Goals 08/05/2020 STG Time Frames 3wks STG #1 Decrease R hip pain 35% STG #2 I w/ HEP Commercial Manager Physical Therapy Goals 08/05/2020 LTG Time Frames 6wks LTG #1 Decrease R hip pain 75% LTG #2 WOMAC < 25% LTG #3 Improve community ambulation to 250 yards w/ appropriate AD PLAN Continue PT per established plan of care as patient tolerates. 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
--- OUTSIDE RECORDS SUMMARY | 2022-02-01 20:32 | XMS_ITS | Encounter Summary ---
:1955 Author Organization [facility] Address [address] [place], [place], [address] [place] [address] Care Team Providers Name Role Phone Unavailable Primary Care Provider Unavailable Encounter Details Date Type Department Care Team Description 08/27/2020 Travel Social History Tobacco Use Types Packs/Day [...]
--- OUTSIDE RECORDS SUMMARY | 2022-02-01 20:32 | XMS_ITS | Encounter Summary ---
:1955 Author Organization [facility] Address [address] [place], [place], [address] [place] [address] Care Team Providers Name Role Phone Unavailable Primary Care Provider Unavailable Reason for Visit Reason Comments PT Treatment Physical Medicine (Routine) - Closed Specialty Diagnoses / Referred By Contact Referred To Contact Procedures Physical Therapy / Procedures Vamsi Avalos, Andrés Garg, PT Outpatient Rehabilitation Physical Therapy MD David [address] Evaluation - Plan of [address] [place], [place] [facility] [place], [phone] Referral ID Status Reason Start Date Expiration Date Visits Requ ested Visits Authorized [id number] Closed 04/21/2018 05/27/2018 11 11 Encounter Details Date Type Department Care Team Description 05/18/[address] [facility] Javi Mcgowan Chronic kendra ateral low [facility] PTA back pain without Therapy [address] sciatica (Primary Dx) [address] [facility] [place] [phone] [place] [address] [phone] Social History Tobacco Use Types Packs/Day Years Used Date Smoking Tobacco: Never Assessed Sex Assigned at Date Recorded Not on file documented as of this encounter Progress Notes Javi Hannafordamaris Damon PTA - 05/18/2018 9:45 AM CST Outpatient Physical Therapy Daily Treatment Note PATIENT: Sarah Doran : 1955PATIENT DATE OF SERVICE: 05/18/2018 PT Visit Number: 7 Time In/Out with intervention times: Treatment Times 05/18/2018 Start Time 9:58 AM Evaluation minutes - Therapeutic Exercise minutes 35 Manual Therapy minutes 10 Moist Heat minutes - Cryotherapy / Cold Therapy minutes 10 Therapeutic Interventions Total minutes 55 Stop Time 11:15 AM Time Calculation (min) 77 Therapy Treatment Diagnosis: . 04/21/2018 Diagnoses: cervicalgia;disorders of soft tissue, unspecified;lumbago;other disorders of soft tissue;pain in joint;pain in spine Medical Diagnosis: . 04/21/2018 Diagnoses: Cervicalgia, Lumbago, OA, DDD SUBJECTIVE Sarah Doran is a 63 y.o. female here today for a physical therapy treatment. Sup visit with Andrés Darnell, PT today. Pain: Pain Assessment 04/29/2018 05/04/2018 05/05/2018 05/16/2018 05/18/2018 Pain y/n? yes yes yes yes yes Pain Rate Now (0-10) 5-6 4 4 4 4 Pain Rate Best [...] shrugs x 30 Manual Therapy: Received manual stretches to bilateral cervical regions while seated x 10 minutes. Modalities: Completed treatment today with CP to cervical and lumbar regions while supine x 10 minutes. ASSESSMENT The [...] electronically signed by Javi Damon PTA May 18, 2018 WIRE FABRIC MACHINE OPERATOR Associated attestation - Andrés Darnell, PT - 05/18/2018 1:19 PM LINK WIRE FABRIC MACHINE OPERATOR I have reviewed the notes, assessments, and/or procedures performed by Javi Damon PTA, I concur with his documentation of Sarah Doran. documented in this encounter Plan of Treatment Not on filedocumented as of this encounter Visit Diagnoses Diagnosis Chronic bilateral low back pain without sciatica - Primary documented in this encounter
--- OUTSIDE RECORDS SUMMARY | 2022-02-01 20:32 | XMS_ITS | Encounter Summary ---
:1955 Author Organization [facility] Address [address] [place], [place], [address] [place] [address] Care Team Providers Name Role Phone Unavailable Primary Care Provider Unavailable Encounter Details Date Type Department Care Team Description 08/05/2020 [facility] [address] [place] [address] [address] [place] [address] Social History Tobacco Use Types Packs/Day [...]
--- OUTSIDE RECORDS SUMMARY | 2022-02-01 20:32 | XMS_ITS | Encounter Summary ---
:1955 Author Organization [facility] Address [address], [place], [address] [place] [address] Care Team Providers Name Role Phone Unavailable Primary Care Provider Unavailable Reason for Visit Reason Comments PT Treatment Physical Therapy (Routine) - Closed Specialty Diagnoses / Referred By Contact Referred To Contact Procedures Physical Therapy / Kasey Hassan Robbin J , PT Outpatient Rehabilitation MD Leatha [address] [facility] [place], [place], [place] [phone] Referral ID Status Reason Start Date Expiration Date Visits V isits Requested Authorized [id number] Closed Specialty 08/05/2020 11/01/2020 28 28 Services Required Encounter Details Date Type Department Care Team Description 10/11/2020 Treatment [facility] Periprosthe tic fracture of hip, sequela; [facility] [facility] [employer], 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 History of right hip replacement; Therapy [address] 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, subsequent encounter; [address] [facility] [address] Right hip pain; [address] [place], [place] Weakness [place] right hip [place] [address] [phone] Social History Tobacco Use Types Packs/Day Years [...] encounter Progress Notes Andrés Darnell, PT - 10/11/2020 12:33 PM CDT Outpatient Physical Therapy Daily Treatment Note PATIENT: Sarah Doran : 1955PATIENT DATE OF SERVICE: 10/11/2020 PT Visit Number: 20 Time In/Out with intervention times: Treatment Times 10/11/2020 Start Time 9:56 AM Evaluation minutes - Therapeutic Exercise minutes 35 Manual Therapy minutes - Moist Heat minutes - Cryotherapy / Cold Therapy minutes - Rest minutes - Therapeutic Interventions Total minutes 35 Stop Time 10:41 AM Time Calculation (min) 45 Therapy Treatment Diagnosis: . 08/05/2020 Diagnoses: disorders of soft tissue, unspecified;muscle weakness (generalized);pain in joint;pain inlimb;spasm of muscle Medical Diagnosis: . 08/05/2020 Diagnoses: Periprosthetic fracture of proximal end of femur, Hx of R SAMIR, Failure of R SAMIR Temperature taken upon clinic entry & patient w/out fever. Appropriate PPE donned by PT/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 & patient for PT interventions. Supervisory visit w/ Javi Damon PTA. SUBJECTIVE Sarah Doran is a 65 y.o. female here today for a physical therapy treatment. Reports I've come a long way & feel much stronger in my R hip. Discussed w/ her once they got medication for fluidretention resolved, she was able to progress w/ mobility much easier. Pain: Pain Assessment 09/20/2020 09/24/2020 09/26/2020 10/08/2020 10/11/2020 Pain y/n? yes yes yes yes yes Pain Rate Now (0-10) 3 3 3 2 1 Pain Rate Best (0-10) - - - [...] : 30 Bridges: 30 Clamshells : 30 Exercise 1: prone TKE x30 Exercise 2: SL reverse CS AA x 20 Exercise 2 Details: LAQ x 30 Exercise 3: windmill 20 Exercise 3 Details: bridges x 30 Knee Exercises Prone knee flexion: 30 Speciality Exercises Exercise 1: T gym DBL and SGL x30ea Exercise 1 Details: T band abd walk x 20ft ea Exercise 2: SGL leg table top hold 2 x 20 Exercise 2 Details: BOSU lunge x 20 ASSESSMENT The patient is progressing toward achievement of goals as expected. 1/3 LTG met; pt is to try my exercises at home & will call you next week to see if I need to come back. . Sarah Doran tolerated all therapeutic exercises during therapy session with no adverse effects noted this date. Currently Established Goals: Short Term Physical Therapy Goals 08/05/2020 STG Time Frames 3wks STG #1 Decrease R hip pain 35% STG #2 I w/ HEP Snf Physical Therapy Goals 08/05/2020 LTG Time Frames 6wks LTG #1 Decrease R hip pain 75%- met LTG #2 WOMAC < 25% LTG #3 Improve community ambulation to 250 yards w/ appropriate AD PLAN Continue PT per established plan of care as patient tolerates. 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
--- OUTSIDE RECORDS SUMMARY | 2022-02-01 20:32 | XMS_ITS | Encounter Summary ---
:1955 Author Organization [facility] Address [address], [place], [address] [place] [address] Care Team Providers Name Role Phone Unavailable Primary Care Provider Unavailable Reason for Visit Reason Comments PT Treatment Physical Therapy (Routine) - Closed Specialty Diagnoses / Referred By Contact Referred To Contact Procedures Physical Therapy / Kasey Hassan Robbin J , PT Outpatient Rehabilitation MD Leatha [address] [facility] [place], [place], [phone] Referral ID Status Reason Start Date Expiration Date Visits V isits Requested Authorized [id number] Closed Specialty 08/05/2020 11/01/2020 28 28 Services Required Encounter Details Date Type Department Care Team Description 09/26/2020 Treatment [facility]rero Periprosthe tic fracture of hip, sequela; [facility] [facility] [place], 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 History of right hip replacement; Therapy [address] [facility] [address] 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, subsequent encounter; [address] [facility] [address] Right hip pain [address] [place] [address] [phone] Social History Tobacco Use Types Packs/Day Years [...] this encounter Progress Notes Javi Greenwood Marisol, 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 - 09/26/2020 10:58 AM CDT Outpatient Physical Therapy Daily Treatment Note PATIENT: Sarah Doran : 1955PATIENT DATE OF SERVICE: 09/26/2020 PT Visit Number: 18 Time In/Out with intervention times: Treatment Times 09/26/2020 Start Time 9:47 AM Evaluation minutes - Therapeutic Exercise minutes 35 Manual Therapy minutes - Moist Heat minutes - Cryotherapy / Cold Therapy minutes 10 Rest minutes - Therapeutic Interventions Total minutes 45 Stop Time 10:40 AM Time Calculation (min) 53 Therapy Treatment Diagnosis: . 08/05/2020 Diagnoses: disorders of soft tissue, unspecified;muscle weakness (generalized);pain in joint;pain inlimb;spasm of muscle Medical Diagnosis: . 08/05/2020 Diagnoses: Periprosthetic fracture of proximal end of femur, Hx of R SAMIR, Failure of R SAMIR SUBJECTIVE Sarah Doran is a 65 y.o. female here today for a physical therapy treatment. Sup visit with Andrés Darnell PT. Pt states mildly decreased soreness in R hip today. Pt presents to clinic without AD. Pain: Pain Assessment 09/13/2020 09/18/2020 09/20/2020 09/24/2020 09/26/2020 Pain y/n? yes yes yes yes yes Pain Rate Now (0-10) 3 3 3 3 3 Pain Rate Best (0-10) - - - - - Pain Rate Worst (0-10) - - - - - Frequency of Pain? - - - - - Pain Scoring Method Used Numeric - - Numeric Numeric OBJECTIVE Lumbar Exercises Exercise [...] x 20 Exercise 3: Sit-stand x 5 Modalities: Completed treatment today with CP to R hip while in L sidely. ASSESSMENT The patient is progressing toward achievement of goals as expected. Sarah Doran tolerated all therapeutic exercises during therapy session with no adverse effects noted this date. Temperature takenupon clinic entry & patient w/out fever. 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 Currently Established Goals: Short Term Physical Therapy Goals 08/05/2020 STG Time Frames 3wks STG #1 Decrease R hip pain 35% STG #2 I w/ HEP Correction Physical Therapy Goals 08/05/2020 LTG Time Frames 6wks LTG #1 Decrease R hip pain 75% LTG #2 WOMAC < 25% LTG #3 Improve community ambulation to 250 yards w/ appropriate AD PLAN Continue PT per established plan of care as patient tolerates. This report has been electronically signed by Javi Damon PTA September 26, 2020 Associated attestation - Andrés Darnell PT [...]
--- OUTSIDE RECORDS SUMMARY | 2022-02-01 20:32 | XMS_ITS | Encounter Summary ---
:1955 Author Organization [facility] Address [address], [place], [address] [place] [address] Care Team Providers Name Role Phone Unavailable Primary Care Provider Unavailable Reason for Visit Reason Comments PT Treatment Physical Medicine (Routine) - Closed Specialty Diagnoses / Referred By Contact Referred To Contact Procedures Physical Therapy / Procedures Vamsi Avalos, Andrés Garg, PT Outpatient Rehabilitation Physical Therapy MD David [address] - Plan of [address] [place], [place] [facility] [place], [phone] Referral ID Status Reason Start Date Expiration Date Visits Requ ested Visits Authorized [id number] Closed 04/21/2018 05/27/2018 11 11 Encounter Details Date Type Department Care Team Description 05/04/2018 Treatment [facility] Javi Mcgowan Chronic kendra ateral low [facility] [facility] [place], 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 Therapy [address] sciatica (Primary Dx) [address] [facility] [place] [address] [address] [place] [address] [phone] Social History Tobacco Use Types Packs/Day Years Used Date Smoking Tobacco: Never Assessed Sex Assigned at Date Recorded Not on file documented as of this encounter Progress Notes Javi Krystynaamaris Damon PTA - 05/04/2018 10:00 AM CST Outpatient Physical Therapy Daily Treatment Note PATIENT: Sarah Doran : 1955PATIENT DATE OF SERVICE: 05/04/2018 PT Visit Number: 4 Time In/Out with intervention times: Treatment Times 05/04/2018 Start Time 10:00 AM Evaluation minutes - Therapeutic Exercise minutes 35 Manual Therapy minutes 10 Moist Heat minutes 10 Cryotherapy / Cold Therapy minutes 10 Therapeutic Interventions Total minutes 65 Stop Time 11:05 AM Time Calculation (min) 65 Therapy Treatment Diagnosis: . 04/21/2018 Diagnoses: cervicalgia;disorders of soft tissue, unspecified;lumbago;other disorders of soft tissue;pain in joint;pain in spine Medical Diagnosis: . 04/21/2018 Diagnoses: Cervicalgia, Lumbago, OA, DDD SUBJECTIVE Sarah Doran is a 63 y.o. female here today for a physical therapy treatment. Sup visit with Andrés Darnell, PT today. Pt states mildly decreased pain in lumbar region today. She reports she was in ER over the weekend with fever/ infection like symptoms; she is on antibiotics now with decreased symptoms. Pain: Pain Assessment 04/21/2018 04/29/2018 05/04/2018 Pain y/n? yes yes yes Pain Rate Now (0-10) 7 5-6 4 Pain Rate Best (0-10) 5 - - Pain Rate Worst (0-10) 10 - - Frequency of Pain? constant - - Pain Scoring Method Used Numeric Numeric Numeric OBJECTIVE Lumbar Exercises Double [...] Exercise 13: supine chin tucks x 30 Manual Therapy: Received MFR/DTM to bilateral upper trap regions while seated. Received MET with R ext and L flexion while supine. Modalities: Received MHP to cervical region along with CP to lumbar with L LE elevated to 90/90 position on stool while supine x 10 minutes. ASSESSMENT The [...] electronically signed by Javi Damon PTA May 04, 2018 OPSYCHOLOGY DIRECTOR Associated attestation - Andrsé Darnell PT - 05/04/2018 11:53 AM NEUROPSYCHOLOGY DIRECTOR I have reviewed the notes, assessments, and/or procedures performed by Javi Damon PTA, I concur with his documentation of Sarah Darnell Espinoza. documented in this encounter Plan of Treatment Not on filedocumented as of this encounter Visit Diagnoses Diagnosis Chronic bilateral low back pain without sciatica - Primary documented in this encounter
--- NOTE | 2022-02-01 21:10 | ED.GENADUL_ITS ---
Discharge Plan Disposition Patient Disposition: HOME Condition: Stable Discharge Details Clinical Impression: Fracture of scapula Primary Care Provider: Brooklynn,Local ED Provider: Vern Mayes Home Meds and New Rx's Prescriptions: New oxycodone 10 mg tablet 10 mg PO Q8H PRNQty: 8 0RF Continued multivitamin Tablet 1 tab PO DAILY ascorbic acid (vitamin C) [Vitamin C] 1,000 mg Tablet 1,000 mg PO DAILY aspirin 81 mg Tablet 81 mg PO DAILY calcium carbonate-vitamin D3 600-125 mg-unit Tablet 1 tab PO BID gabapentin 400 mg capsule 1 cap PO TID Label Comments: TAKE 1 CAPSULE BY MOUTH EVERY NIGHT IN THE MORNING AND AT NOON AND AT BEDTIME metformin 500 mg tablet 1 tab PO DAILY Label Comments: TAKE 1 TABLET BY MOUTH DAILY ropinirole 2 mg tablet 1 tab PO BID Label Comments: TAKE 1 TABLET BY MOUTH TWICE DAILY carvedilol 25 mg tablet 1 tab PO BID Label Comments: TAKE 1 TABLET BY MOUTH TWICE DAILY WITH FOOD diclofenac sodium 75 mg Tablet,Delayed Release (Dr/Ec) 75 mg PO BID venlafaxine 150 mg capsule,extended release 24hr 1 cap PO DAILY Label Comments: TAKE 1 CAPSULE BY MOUTH EVERY DAY mirtazapine [Remeron] 30 mg Tablet 30 mg PO HS colesevelam 625 mg tablet 2 tab PO DAILY Label Comments: TAKE 2 TABLETS BY MOUTH EVERY DAY WITH A MEAL telmisartan-hydrochlorothiazid 80-25 mg tablet 1 tab PO DAILY Label Comments: TAKE 1 TABLET BY MOUTH DAILY Culturelle 10 billion cell Capsule 1 cap PO DAILY Ozempic 1 mg/dose (4 mg/3 mL) pen injector 1 device SUBCUT DIRECTED Rx Instructions: 1x/wk duloxetine 60 mg capsule,delayed release(DR/EC) 1 cap PO DAILY Label Comments: TAKE 1 CAPSULE BY MOUTH EVERY DAY furosemide 40 mg tablet 1 tab PO DAILY Label Comments: TAKE 1 TABLET BY MOUTH TWICE DAILY potassium chloride 20 mEq tablet,ER particles/crystals 1 tab PO DAILY Label Comments: TAKE 1 TABLET BY MOUTH TWICE DAILY WITH LASIX hydrocodone-acetaminophen 5-325 mg tablet 1 tab PO DIRECTED Label Comments: TAKE 1 TO 2 TABLETS BY MOUTH EVERY 4 HOURS NEEDED FOR SEVERE CANCER PAIN. ALTERNATE WITH 10MG TABLETS NEEDED. MUST LAST 30 DAYS hydrocodone-acetaminophen 10-325 mg tablet 1 tab PO DIRECTED Label Comments: TAKE 1 TO 2 TABLETS BY MOUTH EVERY 4 TO 6 HOURS NEEDED FOR CANCER PAIN. ALTERNATE WITH 5MG TABLETS. MUST LAST 30 DAYS fluticasone furoate-vilanterol [Breo Ellipta] 200-25 mcg/dose Blister With Device 1 inh INHALATION DAILY Discharge Instructions Instructions: Scapular Fracture (ED), Shoulder Pain (ED) Additional Instructions: Oxycodone as directed. This medication may cause drowsiness and/or constipation, you may consider taking an [id number] stool softener while taking this medication. Wear sling until reevaluation with orthopedics when she returns home to [place]. Passive range of motion 4 times daily to avoid a frozen shoulder. Cool compresses every 2 hours for 20 minutes. Please watch for new or worsening symptoms and return to our ER or any ER longer way for reevaluation. I do recommend contacting your orthopedic team in [place] tomorrow to make them aware of your ER visit and need for prompt outpatient reevaluation once you return home. 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 Patient to be given 1 tablet p.o. Percocet will obtain x-ray. X-ray initially read by radiology as mild subluxation of the right humeral component of the shoulder arthroplasty, no mention of any scapular fracture. Case discussed with Dr. Koroma who felt as though the surgical hardware appropriate but did not feel there was concern for a scapular fracture. Recommends pain control, sling, follow-up with her orthopedic team when she returns home to [place] on Wednesday. Likely additional imaging such as CT will be required for definitive care. [facility] was contacted and requested a addendum. They now report right scapular spine fracture, surgical hardware grossly intact. Discussed findings with patient. She reports significant pain, IV established and 2 mg IV Dilaudid provided. Sling applied. Standard discharge and return precautions were provided. Patient understands, is agreeable to this plan, and has no additional questions or concerns upon discharge. This documentation was generated using [employer] system, please disregard any oddities of phrase or misspellings. Imaging Data Radiologic Study: Attestation: I personally reviewed and interpreted this imaging study as follows: Imaging: X-Ray Radiologist's impression: Addendum created by Byran Caldwell MD on 02/01/2022 10:23 PM Eastern Time ([place] & Autumn): SECOND ADDENDUM. PLEASE DISREGARD PRIOR REPORTS FOR RIGHT SHOULDER PROCEDURE INFORMATION: Exam: XR Right Shoulder Exam date and time: 02/01/2022 9:53 PM Clinical indication: Shoulder; Left; Prior surgery; Surgery date: 6+ months; Surgery type: Surgery x2; Patient HX: Pain after lifting a pot TECHNI QUE: Imaging protocol: Radiologic exam of the Right shoulder. Views: 2 or more views. COMPARISON: No relevant prior studies available. FINDINGS: Bones/joints: Scapular fracture noted. Surgical hardware in the right shoulder is grossly intact. Visualized right ribs are grossly intact Soft tissues: Normal. No pneumothorax IMPRESSION: RIGHT SCAPULAR SPINE FRACTURE SURGICAL HARDWARE, GROSSLY INTACTAddendum created by Bryan Caldwell MD on 02/01/2022 10:20 PM Eastern Time ([place] & Autumn): PLEASE DISREGARD PRIOR RIGHT SHOULDER FILM REPORT PROCEDURE INFORMATION: Exam: XR Right Shoulder Exam date and time: 02/01/2022 9:53 PM Age: 66 years old Clinical indication: Shoulder; Left; Prior surgery; Surgery date: 6+ months; Surgery type: Surgery x2; Patient HX: Pain after lifting a pot TECHNIQUE: Imaging protocol: Radiologic exam of the Right shoulder. Views: 2 or more views. COMPARISON: No relevant prior studies available. FINDINGS: Bones/joints: Right shoulder arthroplasty grossly intact. No discrete fracture Soft tissues: Surgical clips in the right axilla IMPRESSION: NO ACUTE FINDINGS. NO DEFINITE HARDWARE FRACTURE OR SUBLUXATION/DISLOCATION Initial Report created on 02/01/2022 10:14 PM Eastern Time ([place] & Autumn): PROCEDURE INFORMATION: Exam: XR Right Shoulder Exam date and time: 02/01/2022 9:53 PM Age: 66 years old Clinical indication: Shoulder; Left; Prior surgery; Surgery date: 6+ months; Surgery type: Surgery x2; Patient HX: Pain after lifting a pot TECHNIQUE: Imaging protocol: Radiologic exam of the Right shoulder. Views: 2 or more views. COMPARISON:No relevant prior studies available. FINDINGS: Bones/joints: Right shoulder arthroplasty grossly intact. Mild inferior subluxation of the humeral head component suspected Soft tissues: Surgical clips in the right axilla IMPRESSION: Mild subluxation of the right humeral component of the shoulder arthroplasty. No hardware fracture Thank you for allowing us to participate in the care of your patient. Dictated and Authenticated by: Bryan Caldwell MD 02/01/2022 10:14 PM Eastern Time ([place] & Autumn) HPI General Mode of arrival: ambulatory . Date/Time Provider Initiated Documentation: 02/01/22 20:37 . Limitations to Documentation: no limitations . Information obtained by: patient . History of Present Illness 66 year old F presents to the emergency department with the chief complaint of R shoulder pain, described as severe, with intensity rated at >10. Quality is described as aching, and is localized to the right and upper extremity. Patient reports no radiation. Patient started experiencing this hour(s) (2) and it has been constant. Immobilization improves symptom(s), Movement worsens symptoms . Patient notes no other symptoms.. Patient did receive the following treatments prior to arrival, none Related Data Home Medications Medication Instructions Recorded Confirmed Lactobacillus rhamnosus GG 10 1 cap PO DAILY 02/01/22 02/01/22 billion cell capsule (Culturelle) ascorbic acid (vitamin C) 1,000 mg 1,000 mg PO DAILY 02/01/22 02/01/22 tablet (Vitamin C) aspirin 81 mg tablet 81 mg PO DAILY 02/01/22 02/01/22 calcium carbonate-vitamin D3 600 1 tab PO BID 02/01/22 02/01/22 mg-125 unit tablet carvedilol 25 mg tablet 1 tab PO BID 02/01/22 02/01/22 colesevelam 625 mg tablet 2 tab PO DAILY 02/01/22 02/01/22 diclofenac sodium 75 mg 75 mg PO BID 02/01/22 02/01/22 tablet,delayed release duloxetine 60 mg capsule,delayed 1 cap PO DAILY 02/01/22 02/01/22 release fluticasone furoate 200 1 inh inhalation DAILY 02/01/22 02/01/22 mcg-vilanterol 25 mcg/dose inhalation powder (Breo Ellipta) furosemide 40 mg tablet 1 tab PO DAILY 02/01/22 02/01/22 gabapentin 400 mg capsule 1 cap PO TID 02/01/22 02/01/22 hydrocodone 10 mg-acetaminophen 1 tab PO DIRECTED 02/01/22 02/01/22 325 mg tablet hydrocodone 5 mg-acetaminophen 325 1 tab PO DIRECTED 02/01/22 02/01/22 mg tablet metformin 500 mg tablet 1 tab PO DAILY 02/01/22 02/01/22 mirtazapine 30 mg tablet (Remeron) 30 mg PO HS 02/01/22 02/01/22 multivitamin 1 tab PO DAILY 02/01/22 02/01/22 oxycodone 10 mg tablet 10 mg PO Q8H PRN #8 tabs 02/01/22 potassium chloride 20 mEq 1 tab PO DAILY 02/01/22 02/01/22 tablet,extended release(part/cryst) ropinirole 2 mg tablet 1 tab PO BID 02/01/22 02/01/22 semaglutide 1 mg/dose (4 mg/3 mL) 1 device subcut DIRECTED 02/01/22 02/01/22 subcutaneous pen injector (Ozempic) telmisartan 80 1 tab PO DAILY 02/01/22 02/01/22 mg-hydrochlorothiazide 25 mg tablet venlafaxine 150 mg 1 cap PO DAILY 02/01/22 02/01/22 capsule,extended release 24 hr Previous Rx's Medication Instructions Recorded oxycodone 10 mg tablet 10 mg PO Q8H PRN #8 tabs 02/01/22 Allergies Allergy/AdvReac Type Severity Reaction Status Date / Time prochlorperazine Allergy Severe stop Unverified 02/01/22 20:35 [From Compazine] breathing nitrofurantoin AdvReac Severe severe Unverified 02/01/22 20:36 [From Macrobid] rash vancomycin AdvReac Severe renal Unverified 02/01/22 20:36 failure General Stated Complaint: Orthopedic ZHEN: 3 Review of Systems Constitutional Constitutional: Denies fever(s) and Denies weakness Musculoskeletal Musculoskeletal: Denies deformity, Reports arthralgias, Denies numbness, Reports stiffness and Denies tingling Integumentary/Breasts Skin/Breast: Denies erythema Neurologic Neurologic: Denies numbness, Denies tingling and Denies weakness PFSH All Active Problems (Updated 02/01/22 @ 22:44 by MICHELE Ortega) Fracture of scapula (Acute) Social History Smoking risk assessment performed?: No Do you feel safe at home: Yes Do you feel safe in your relationship?: Yes Exam Const General: cooperative and no acute distress Orientation: alert and awake [facility] Head: normal to inspection, normocephalic and atraumatic Eyes General: appearance normal, both eyes and all related structures Conjunctivae: conjunctivae normal Neck Neck: normal visual inspection, full ROM, trachea midline, supple and nontender Chest Chest: normal palpation of entire chest wall Resp Effort & Inspection: normal respiratory effort and able to speak in complete sentences Auscultation: clear to auscultation bilaterally Cardio Rate: regular rate Rhythm: regular rhythm Skin General skin exam: no rashes or lesions noted Neuro General: patient alert, patient awake, moves all extremities and no focal motor deficits Cognition: normal cognition Speech: speech normal Gait: normal gait Sensory Exam: no sensory deficits noted Extrem General: capillary refill normal Other: Right shoulder held in adduction. Limited range of motion secondary to discomfort. There is no obvious deformity. Elbow, hand, wrist unremarkable. Normal radial pulse and capillary refill. Patient does have diffuse posterior thoracic tenderness point tenderness over the superior scapula. Psych Appearance: grossly normal Mental Status: mental status grossly normal Course Vital Signs Vital signs: Vital Signs Temperature 36.2 C L 02/01/22 20:27 Pulse 95 H 02/01/22 20:27 Respiratory Rate 18 02/01/22 20:27 Blood Pressure 123/77 02/01/22 20:27 Pulse Oximetry 94 02/01/22 20:27 Temperature 36.2 C L 02/01/22 20:27 Temperature Source Tympanic 02/01/22 20:27 Pulse 95 H 02/01/22 20:27 Respiratory Rate 18 02/01/22 20:27 Respiratory Effort 02/01/22 20:38 Blood Pressure 123/77 02/01/22 20:27 Blood Pressure Position Sitting 02/01/22 20:27 Pulse Oximetry 94 02/01/22 20:27 Oxygen Delivery Method Room Air 02/01/22 20:27 Oxygen Flow Rate 0 02/01/22 20:27 Pain Level 9 02/01/22 20:39 Comment 02/01/22 20:27
--- NOTE | 2022-02-01 21:15 | DI.RAD_ITS ---
Exam(s) XR SHOULDER RT COMPLETE 2+V EXAM: XR SHOULDER RT COMPLETE 2+V CLINICAL HISTORY: pain, hx of surgery x 2. TECHNIQUE: 2D digital imaging was performed. Five views. COMPARISON: No exams were available for comparison FINDINGS: BONES: No acute fracture is present. No bony destructive lesion is seen. JOINTS: No dislocation present. Reverse shoulder prosthesis appears intact. Prominent spurring at A C joint. SOFT TISSUE: Surgical clips in the axilla. IMPRESSION: Reverse shoulder prosthesis. No surrounding fracture. DATA REPOSITORY: RADIATION DOSE DELIVERED:
[2022-02-01] MEDS: oxyCODONE 5 mg/Acetaminophen 325 mg TAB 1 TAB PO (21:47)
--- NOTE | 2022-02-01 22:15 | DI.VRAD_ITS ---
Addendum created by Bryan Caldwell MD on 02/01/2022 10:23:58 PM EDT: SECOND ADDENDUM. PLEASE DISREGARD PRIOR REPORTS FOR RIGHT SHOULDER PROCEDURE INFORMATION: Exam: XR Right Shoulder Exam date and time: 02/01/2022 9:53 PM Clinical indication: Shoulder; Left; Prior surgery; Surgery date: 6+ months; Surgery type: Surgery x2; Patient HX: Pain after lifting a pot TECHNIQUE: Imaging protocol: Radiologic exam of the Right shoulder. Views: 2 or more views. COMPARISON: No relevant prior studies available. FINDINGS: Bones/joints: Scapular fracture noted. Surgical hardware in the right shoulder is grossly intact. Visualized right ribs are grossly intact Soft tissues: Normal. No pneumothorax IMPRESSION: RIGHT SCAPULAR SPINE FRACTURE SURGICAL HARDWARE, GROSSLY INTACT Addendum created by Bryan Caldwell MD on 02/01/2022 10:20:48 PM EDT: PLEASE DISREGARD PRIOR RIGHT SHOULDER FILM REPORT PROCEDURE INFORMATION: Exam: XR Right Shoulder Exam date and time: 02/01/2022 9:53 PM Age: 66 years old Clinical indication: Shoulder; Left; Prior surgery; Surgery date: 6+ months; Surgery type: Surgery x2; Patient HX: Pain after lifting a pot TECHNIQUE: Imaging protocol: Radiologic exam of the Right shoulder. Views: 2 or more views. COMPARISON: No relevant prior studies available. FINDINGS: Bones/joints: Right shoulder arthroplasty grossly intact. No discrete fracture Soft tissues: Surgical clips in the right axilla IMPRESSION: NO ACUTE FINDINGS. NO DEFINITE HARDWARE FRACTURE OR SUBLUXATION/DISLOCATION Initial report created on 02/01/2022 10:14:51 PM EDT: PROCEDURE INFORMATION: Exam: XR Right Shoulder Exam date and time: 02/01/2022 9:53 PM Age: 66 years old Clinical indication: Shoulder; Left; Prior surgery; Surgery date: 6+ months; Surgery type: Surgery x2; Patient HX: Pain after lifting a pot TECHNIQUE: Imaging protocol: Radiologic exam of the Right shoulder. Views: 2 or more views. COMPARISON: No relevant prior studies available. FINDINGS: Bones/joints: Right shoulder arthroplasty grossly intact. Mild inferior subluxation of the humeral head component suspected Soft tissues: Surgical clips in the right axilla IMPRESSION: Mild subluxation of the right humeral component of the shoulder arthroplasty. No hardware fracture Dictated and Authenticated by: Bryan Caldwell MD. Ordering:FIORELLA Porras MD
[2022-02-01] MEDS: HYDROmorphone 2 MG/ML SYR IVP (22:32)
[2022-02-01 22:50] VITALS: BP 115/72; PULSE 87; RESP 17; TEMP 36.7; O2SAT 97
== END 2022-02-01 23:09 | disposition home or self-care (01) ==
PROVIDERS: Emergency Provider Physician Assistant
DX: S42.101A Fracture of unspecified part of scapula, right shoulder, initial encounter for closed fracture (principal); Z96.611 Presence of right artificial shoulder joint; X50.0XXA Overexertion from strenuous movement or load, initial encounter
CPT/HCPCS: 96374; 99284; 73030; J1170